=== PATIENT | female | born 1940 | race Caucasian/White ===

== ENCOUNTER 2016-04-10 13:57 | Outpatient (RCR) | payer MEDICARE, OTHER ==
[2016-03-13 14:03] LABS: BASOPHILS % (AUTO) 0 % (0-10); EOSINOPHILS # (AUTO) 0.1 10^3/uL (0.0-0.3); EOSINOPHILS % (AUTO) 1 % (0-10); LYMPHOCYTES % (AUTO) 29 % (12-44); MEAN CORPUSCULAR HEMOGLOBIN 24 PG (25-34); MEAN CORPUSCULAR HGB CONC 33 G/DL (32-36); MEAN CORPUSCULAR VOLUME 73 FL (80-99); MEAN PLATELET VOLUME 8.9 FL (7.4-10.4); MONOCYTES # (AUTO) 0.8 X 10^3 (0.0-1.0); MONOCYTES % (AUTO) 12 % (0-12); NEUTROPHILS % (AUTO) 58 % (42-75); PLATELET COUNT 343 10^3/uL (130-400); RED CELL DISTRIBUTION WIDTH 13.7 % (10.0-14.5)
[2016-03-13 14:55] LABS: ALANINE AMINOTRANSFERASE 13 U/L (0-55); ANION GAP 10 MMOL/L (5-14); ASPARTATE AMINO TRANSFERASE 14 U/L (5-34); BILIRUBIN,TOTAL 0.3 MG/DL (0.1-1.0); BLOOD UREA NITROGEN 14 MG/DL (7-18); BUN/CREATININE RATIO 19; CALCIUM 9.4 MG/DL (8.5-10.1); CARBON DIOXIDE 27 MMOL/L (21-32); CHLORIDE 100 MMOL/L (98-107); CREATININE SERUM 0.72 MG/DL (0.60-1.30); GFR ESTIMATED > 60; GLUCOSE 127 MG/DL (70-105); POTASSIUM 3.7 MMOL/L (3.6-5.0); SODIUM 137 MMOL/L (135-145); TOTAL PROTEIN 6.7 G/DL (6.4-8.2)
[~2016-04-10 13:57] MED LIST: AMLO5TAB2 PO; ASP325TEC PO; ASP81CT; ASP81TEC PO; ASPI-586 PO; BISO1TAB39 PO; CALC-80 PO; CHOL2000 PO; CLOP75TA PO; CLOP75TA69 PO; E400C; E400C PO; FISH1200 PO; FOLI0.8T PO; HYDR-3062 PO; HYDR1TAB PO; HYDR25TA4 PO; LISI20TA2 PO; LISI5TAB14; LVT.025T; LVT.05T PO; MAGN400T29 PO; MAGN400T6 PO; MECL-106 PO; MGX400T; NAPR220T66; NAPR220T76 PO; NF-SITA50T; NFNEB10T PO; OMEG-9 PO; OMEP-10; OMEP-10 PO; PNT40TEC PO; RESV100C PO; SERT50TA PO; SIMV40TA4 PO; TEMA15CA6 PO; UBID100C17 PO; VALS1TAB15 PO; VICODIN; VIT D PO; VIT1CAPS44 PO; VIT1TABL8 PO; calcium PO; ziac
[2016-04-10 14:08] LABS: BASOPHILS % (AUTO) 0 % (0-10); EOSINOPHILS # (AUTO) 0.1 10^3/uL (0.0-0.3); EOSINOPHILS % (AUTO) 1 % (0-10); LYMPHOCYTES # (AUTO) 2.4 X 10^3 (1.0-4.0); LYMPHOCYTES % (AUTO) 37 % (12-44); MEAN CORPUSCULAR HEMOGLOBIN 24 PG (25-34); MEAN CORPUSCULAR HGB CONC 34 G/DL (32-36); MEAN CORPUSCULAR VOLUME 71 FL (80-99); MEAN PLATELET VOLUME 9.3 FL (7.4-10.4); MONOCYTES # (AUTO) 0.7 X 10^3 (0.0-1.0); MONOCYTES % (AUTO) 11 % (0-12); NEUTROPHILS # (AUTO) 3.3 X 10^3 (1.8-7.8); NEUTROPHILS % (AUTO) 51 % (42-75); PLATELET COUNT 320 10^3/uL (130-400); RED BLOOD COUNT 4.88 10^6/uL (4.35-5.85); RED CELL DISTRIBUTION WIDTH 13.6 % (10.0-14.5); WHITE BLOOD COUNT 6.5 10^3/uL (4.3-11.0)
[2016-04-10 14:31] LABS: ALANINE AMINOTRANSFERASE 16 U/L (0-55); ALBUMIN 4.2 G/DL (3.2-4.5); ANION GAP 14 MMOL/L (5-14); ASPARTATE AMINO TRANSFERASE 17 U/L (5-34); BILIRUBIN,TOTAL 0.4 MG/DL (0.1-1.0); BLOOD UREA NITROGEN 13 MG/DL (7-18); BUN/CREATININE RATIO 17; CALCIUM 9.5 MG/DL (8.5-10.1); CARBON DIOXIDE 21 MMOL/L (21-32); CHLORIDE 96 MMOL/L (98-107); CREATININE SERUM 0.77 MG/DL (0.60-1.30); GFR ESTIMATED > 60; GLUCOSE 150 MG/DL (70-105); POTASSIUM 3.9 MMOL/L (3.6-5.0); SODIUM 131 MMOL/L (135-145)
[2016-05-15 10:16] LABS: HGB CP# L-17-0002723
== END 2016-06-11 | disposition home or self-care (01) ==
LOC: ONC 13:57
PROVIDERS: ATTEND Internal Medicine Hematology & Oncology
DX: C34.11 Malignant neoplasm of upper lobe, right bronchus or lung (principal); D64.9 Anemia, unspecified; I10 Essential (primary) hypertension; E78.5 Hyperlipidemia, unspecified; E03.9 Hypothyroidism, unspecified; K21.9 Gastro-esophageal reflux disease without esophagitis; F17.210 Nicotine dependence, cigarettes, uncomplicated; Z79.899 Other long term (current) drug therapy
CPT/HCPCS: 36415; 80053; 82728; 83020; 83540; 85025; 99213; 99214

== ENCOUNTER → 2016-06-19 | Outpatient (CLI) | payer MEDICARE, OTHER ==
[~2016-06-19] MED LIST changes: +BARIUM SUSPENSION 2.1% (VANILLA SILQ) 450 ML PO ONE; +CATHETER FLUSH 10 ML SYR IV PRN; +IOHEXOL 350 MG/ML 100 ML (OMNIPAQUE 350) VIAL IV ONE; +NS 100 ML (IVPB) BAG IV ONE
--- NOTE | 2016-06-19 17:10 | Diagnostic Imaging Report ---
PROCEDURE: CT chest with contrast, CT abdomen and pelvis with and without contrast. TECHNIQUE: Pre and post intravenous contrast axial imaging of the abdomen and pelvis and post contrast axial imaging of the chest were performed. INDICATION: Lung cancer. CONTRAST: 100 mL of Omnipaque 350 is administered intravenously. COMPARISON: 11/30/2015; history of a partial right pneumonectomy in January 2016. FINDINGS: CT chest: Mild atelectasis and scarring in the right lung base is seen. Previously seen nodules in the right upper lobe have been resected. The left lung demonstrates no significant consolidation or mass. The heart size is slightly prominent with no pericardial or pleural effusion. Surgical clips about the right hilum are seen. No hilar, mediastinal, or axillary significantly enlarged lymph nodes are noted. The osseous structures demonstrate subacute fracture in the lateral aspect of the right sixth rib with no underlying lytic or sclerotic lesion appears to be present. CT abdomen and pelvis: The liver demonstrates a tiny hypodense lesion measuring 5 mm in the right hepatic dome, too small to accurately characterize and may represent a tiny cyst. Cholecystectomy clips are seen. There is mild intrahepatic biliary dilatation. The CBD is 1.1 cm in caliber. The spleen, the pancreas, and the adrenal glands appear unremarkable. The unenhanced phase demonstrates calcifications near the renal farrukh bilaterally, favored to be vascular calcifications. No definite urinary tract stone. The abdominal aorta is normal in caliber. No para-aortic significantly enlarged lymph nodes seen. There are beam hardening artifacts from fusion prostheses in the lower lumbar spine and the bilateral hip replacements. No soft tissue mass or lymphadenopathy is seen in the abdomen or pelvis. No lytic or blastic mass is seen in the osseous structures. IMPRESSION: CT chest: Postsurgical changes in the right hemithorax. No evidence of tumor recurrence or metastasis. CT abdomen and pelvis: No evidence of metastasis. Dictated by: Dictated on workstation # [id number]
== END ==
LOC: RAD 12:59
PROVIDERS: ATTEND Internal Medicine Hematology & Oncology
DX: C34.11 Malignant neoplasm of upper lobe, right bronchus or lung (principal)
CPT/HCPCS: 71260; 74178

== ENCOUNTER 2016-07-05 14:29 | Outpatient (RCR) | payer MEDICARE, OTHER ==
[2016-06-12 14:15] LABS: BASOPHILS % (AUTO) 0 % (0-10); EOSINOPHILS # (AUTO) 0.2 10^3/uL (0.0-0.3); EOSINOPHILS % (AUTO) 2 % (0-10); LYMPHOCYTES # (AUTO) 2.1 X 10^3 (1.0-4.0); LYMPHOCYTES % (AUTO) 30 % (12-44); MEAN CORPUSCULAR HEMOGLOBIN 24 PG (25-34); MEAN CORPUSCULAR HGB CONC 33 G/DL (32-36); MEAN CORPUSCULAR VOLUME 71 FL (80-99); MEAN PLATELET VOLUME 8.9 FL (7.4-10.4); MONOCYTES # (AUTO) 0.8 X 10^3 (0.0-1.0); MONOCYTES % (AUTO) 11 % (0-12); NEUTROPHILS # (AUTO) 3.8 X 10^3 (1.8-7.8); NEUTROPHILS % (AUTO) 56 % (42-75); PLATELET COUNT 309 10^3/uL (130-400); RED BLOOD COUNT 4.74 10^6/uL (4.35-5.85); RED CELL DISTRIBUTION WIDTH 14.8 % (10.0-14.5); WHITE BLOOD COUNT 6.9 10^3/uL (4.3-11.0)
[2016-06-12 17:09] LABS: ANION GAP 10 MMOL/L (5-14); BLOOD UREA NITROGEN 8 MG/DL (7-18); BUN/CREATININE RATIO 10; CARBON DIOXIDE 27 MMOL/L (21-32); CHLORIDE 96 MMOL/L (98-107); CREATININE SERUM 0.78 MG/DL (0.60-1.30); POTASSIUM 3.9 MMOL/L (3.6-5.0); SODIUM 133 MMOL/L (135-145)
[2016-06-12 17:10] LABS: ALANINE AMINOTRANSFERASE 17 U/L (0-55); ASPARTATE AMINO TRANSFERASE 18 U/L (5-34); BILIRUBIN,TOTAL 0.4 MG/DL (0.1-1.0); CALCIUM 9.8 MG/DL (8.5-10.1); GFR ESTIMATED > 60; GLUCOSE 153 MG/DL (70-105); TOTAL PROTEIN 7.2 G/DL (6.4-8.2)
[~2016-07-05 14:29] MED LIST changes: -BARIUM SUSPENSION 2.1% (VANILLA SILQ) 450 ML PO ONE; -CATHETER FLUSH 10 ML SYR IV PRN; -IOHEXOL 350 MG/ML 100 ML (OMNIPAQUE 350) VIAL IV ONE; -NS 100 ML (IVPB) BAG IV ONE
== END 2016-09-10 | disposition home or self-care (01) ==
LOC: ONC 14:29
PROVIDERS: ATTEND Internal Medicine Hematology & Oncology
DX: C34.11 Malignant neoplasm of upper lobe, right bronchus or lung (principal); D64.9 Anemia, unspecified; I10 Essential (primary) hypertension; E78.5 Hyperlipidemia, unspecified; E03.9 Hypothyroidism, unspecified; K21.9 Gastro-esophageal reflux disease without esophagitis; F17.210 Nicotine dependence, cigarettes, uncomplicated; Z79.899 Other long term (current) drug therapy
CPT/HCPCS: 36415; 80053; 82728; 83540; 85025; 99213

== ENCOUNTER 2016-11-08 15:58 | Outpatient (RCR) | payer MEDICARE, OTHER ==
[2016-11-08 14:25] LABS: BASOPHILS % (AUTO) 0 % (0-10); EOSINOPHILS # (AUTO) 0.1 10^3/uL (0.0-0.3); EOSINOPHILS % (AUTO) 1 % (0-10); LYMPHOCYTES # (AUTO) 2.1 X 10^3 (1.0-4.0); LYMPHOCYTES % (AUTO) 33 % (12-44); MEAN CORPUSCULAR HEMOGLOBIN 24 PG (25-34); MEAN CORPUSCULAR HGB CONC 33 G/DL (32-36); MEAN CORPUSCULAR VOLUME 72 FL (80-99); MEAN PLATELET VOLUME 9.7 FL (7.4-10.4); MONOCYTES # (AUTO) 0.7 X 10^3 (0.0-1.0); MONOCYTES % (AUTO) 10 % (0-12); NEUTROPHILS # (AUTO) 3.7 X 10^3 (1.8-7.8); NEUTROPHILS % (AUTO) 56 % (42-75); PLATELET COUNT 314 10^3/uL (130-400); RED BLOOD COUNT 4.91 10^6/uL (4.35-5.85); WHITE BLOOD COUNT 6.5 10^3/uL (4.3-11.0)
[2016-11-08 14:56] LABS: ALANINE AMINOTRANSFERASE 21 U/L (0-55); ANION GAP 13 MMOL/L (5-14); ASPARTATE AMINO TRANSFERASE 21 U/L (5-34); BILIRUBIN,TOTAL 0.4 MG/DL (0.1-1.0); BLOOD UREA NITROGEN 10 MG/DL (7-18); BUN/CREATININE RATIO 12; CALCIUM 9.7 MG/DL (8.5-10.1); CARBON DIOXIDE 24 MMOL/L (21-32); CHLORIDE 95 MMOL/L (98-107); CREATININE SERUM 0.84 MG/DL (0.60-1.30); GFR ESTIMATED > 60; GLUCOSE 141 MG/DL (70-105); SODIUM 132 MMOL/L (135-145); TOTAL PROTEIN 7.3 GM/DL (6.4-8.2)
== END 2016-11-10 | disposition home or self-care (01) ==
LOC: ONC 15:58
PROVIDERS: ATTEND Internal Medicine Hematology & Oncology
DX: F17.210 Nicotine dependence, cigarettes, uncomplicated; K21.9 Gastro-esophageal reflux disease without esophagitis; E03.9 Hypothyroidism, unspecified; Z79.899 Other long term (current) drug therapy; I10 Essential (primary) hypertension; D64.9 Anemia, unspecified; C34.11 Malignant neoplasm of upper lobe, right bronchus or lung; E78.5 Hyperlipidemia, unspecified
CPT/HCPCS: 36415; 80053; 85025; 99213

== ENCOUNTER 2017-01-01 19:49 | Inpatient (IN) | payer MEDICARE, OTHER ==
[~2017-01-01] VITALS: Ht 165.1 cm; Wt 75.4 kg
[2017-01-01] MEDS ORDERED: fentaNYL INJECTION 100 MCG/2 ML AMP IVP ONE ×3 (20:00→21:15)
[2017-01-01] MEDS ORDERED: METO10TA3 PO (20:01)
--- NOTE | 2017-01-01 20:09 | ED Fall/Injury ---
General Chief Complaint: Trauma-Non Activation Stated Complaint: FALL Nursing Triage Note: FALL FROM STANDING POSITION, LEFT UPPER ARM, LEFT HIP PAIN. DENIES LOC/OTHER INJURY Source: patient, EMS Exam Limitations: no limitations History of Present Illness Time seen by provider: 20:07 Initial Comments To ER per EMS from home with reports of left hip and left upper arm pain. Patient states that she tripped over her cat at home landing on the left side. She has a prosthetic left hip with some pain in it currently, pain to the left proximal humerus as well. No neck pain. He did not hit her head. No loss of consciousness. Occurred: just prior to arrival Severity: moderate Injuries/Pain Location: lower extremity Context: unknown Associated Symptoms (Fall): Denies Symptoms Allergies and Home Medications Allergies Coded Allergies: valsartan (Verified Allergy, Intermediate, HIVES, 02/01/15) Sulfa (Sulfonamide Antibiotics) (Verified Allergy, Unknown, 04/15/08) prochlorperazine (Verified Allergy, Unknown, 04/15/08) Home Medications Amlodipine Besylate 5 Mg Tablet, 5 MG PO DAILY, (Reported) Clopidogrel Bisulfate 75 Mg Tablet, 75 MG PO, (Reported) Hydrochlorothiazide 25 Mg Tablet, 25 MG PO DAILY, (Reported) Hydrocodone/Acetaminophen 1 Each Tablet, 1-2 TAB PO Q4H PRN for PAIN, #40 Prescribed by: DOC BEAUCHAMP on 02/07/15 1425 Levothyroxine Sodium 50 Mcg Tablet, 1 EACH PO DAILY, (Reported) Lisinopril 20 Mg Tablet, 40 MG PO daily, (Reported) TAKE IN EVENING Metoclopramide HCl 10 Mg Tablet, (Reported) Pantoprazole Sod 40 Mg Tab, 40 MG PO, (Reported) Temazepam 15 Mg Capsule, 15 MG PO HS, (Reported) Constitutional: see HPI Eyes: No Symptoms Reported Ears, Nose, Mouth, Throat: no symptoms reported Respiratory: no symptoms reported Cardiovascular: no symptoms reported Genitourinary: no symptoms reported Musculoskeletal: no symptoms reported Skin: no symptoms reported Psychiatric/Neurological: No Symptoms Reported Past Flvwcqd-Nxbivp-Sznzdr Hx Patient Social History Alcohol Use: Denies Use Recreational Drug Use: No Smoking Status: Former Smoker Type Used: Cigarettes 2nd Hand Smoke Exposure: No Recent Foreign Travel: No Contact w/Someone Who Travel: No Recent Infectious Disease Expo: No Recent Hopitalizations: No Immunizations Up To Date Tetanus Booster (TDap): Unknown Date of Pneumonia Vaccine: June 30, 2010 Seasonal Allergies Seasonal Allergies: No Surgeries History of Surgeries: Yes (THUMB AMPUTATED, TOTAL HIPS BILATERAL, BACK SURGRY X4, skin cancer ) Surgeries: Joint Replacement, Lobectomy, Orthopedic Respiratory History of Respiratory Disorde: No Cardiovascular History of Cardiac Disorders: Yes (ATRIAL SEPTAL DEFECT-SMALL) Cardiac Disorders: Hypertension Neurological History of Neurological Disord: No Neurological Disorders: Stroke Reproductive System Hx Reproductive Disorders: No Sexually Transmitted Disease: No HIV/AIDS: No Genitourinary History of Genitourinary Disor: No Gastrointestinal History of Gastrointestinal Di: Yes Gastrointestinal Disorders: Gastroesophageal Reflux Musculoskeletal History of Musculoskeletal Dis: Yes Musculoskeletal Disorders: Degenerate Disk Disease, Arthritis, Chronic Back Pain Endocrine History of Endocrine Disorders: Yes Endocrine Disorders: Hypothyroidsim HEENT History of HEENT Disorders: No Loss of Vision: Denies Hearing Impairment: Denies 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, LIP, SHOULDER) Cancer: Lung Did You Recieve Any Treatments: Yes Type of Tx Receive: Surgical Intervention Psychosocial History of Psychiatric Problem: No Integumentary History of Skin or Integumenta: No Blood Transfusions History of Blood Disorders: Yes (FORM OF ANEMIA) Adverse Reaction to a Blood Tr: No (HAS HAD TRANSFUSION WITHOUT REACTION) Physical Exam Vital Signs Vital Sign - Last 12Hours 01/01/17 20:01 Temp 98.6 Pulse 73 Resp 18 B/P (MAP) 136/81 Pulse Ox 100 O2 Delivery Room Air Capillary Refill : Less Than 3 Seconds General Appearance: WD/WN, no apparent distress HEENT: PERRL/EOMI, normal ENT inspection Neck: non-tender, full range of motion Respiratory: normal breath sounds, no respiratory distress, no accessory muscle use Gastrointestinal: non tender, soft Extremities: other (dorsalis pedis pulse is weak on the left though it is also weak on the right and there is no difference between the 2. Capillary refill less than 3 seconds. Capillary refill of the hand on the left and radial pulse is +2 with capillary refill less than 3 seconds. She has had a former partial indication of the thumb at the IP joint.) Neurologic/Psychiatric: alert, normal mood/affect, oriented x 3 Skin: normal color, warm/dry Yung Coma Score Best Eye Response: (4) Open Spontaneously Best Verbal Response: (5) Oriented Best Motor Response: (6) Obeys Commands Hodges Total: 15 Progress/Results/Core Measures Results/Orders Lab Results Laboratory Tests Test 01/01/17 20:10 Range/Units White Blood Count 10.2 4.3-11.0 10^3/uL Red Blood Count 4.71 4.35-5.85 10^6/uL Hemoglobin 11.4 L 11.5-16.0 G/DL Hematocrit 33 L 35-52 % Mean Corpuscular Volume 71 L 80-99 FL Mean Corpuscular Hemoglobin 24 L 25-34 PG Mean Corpuscular Hemoglobin Concent 34 32-36 G/DL Red Cell Distribution Width 13.9 10.0-14.5 % Platelet Count 292 130-400 10^3/uL Mean Platelet Volume 10.4 7.4-10.4 FL Neutrophils (%) (Auto) 73 42-75 % Lymphocytes (%) (Auto) 16 12-44 % Monocytes (%) (Auto) 10 0-12 % Eosinophils (%) (Auto) 1 0-10 % Basophils (%) (Auto) 0 0-10 % Neutrophils # (Auto) 7.5 1.8-7.8 X 10^3 Lymphocytes # (Auto) 1.7 1.0-4.0 X 10^3 Monocytes # (Auto) 1.0 0.0-1.0 X 10^3 Eosinophils # (Auto) 0.1 0.0-0.3 10^3/uL Basophils # (Auto) 0.0 0.0-0.1 10^3/uL Sodium Level 135 135-145 MMOL/L Potassium Level 3.7 3.6-5.0 MMOL/L Chloride Level 100 98-107 MMOL/L Carbon Dioxide Level 21 21-32 MMOL/L Anion Gap 14 5-14 MMOL/L Blood Urea Nitrogen 18 7-18 MG/DL Creatinine 0.83 0.60-1.30 MG/DL Estimat Glomerular Filtration Rate > 60 BUN/Creatinine Ratio 22 Glucose Level 139 H 70-105 MG/DL Calcium Level 10.0 8.5-10.1 MG/DL Total Bilirubin 0.4 0.1-1.0 MG/DL Aspartate Amino Transf (AST/SGOT) 16 5-34 U/L Alanine Aminotransferase (ALT/SGPT) 16 0-55 U/L Alkaline Phosphatase 77 40-136 U/L Total Protein 7.2 6.4-8.2 GM/DL Albumin 3.9 3.2-4.5 GM/DL My Orders Orders - JOSE MIGUEL FOLEY APRN Cbc With Automated Diff (01/01/17 19:59) Comprehensive Metabolic Panel (01/01/17 19:59) Ua Culture If Indicated (01/01/17 19:59) Saline Lock/Iv-Start (01/01/17 19:59) Chest 1 View, Ap/Pa Only (01/01/17 19:59) Humerus, Left, 2 Views (01/01/17 19:59) Pelvis With Left Hip 2-3 Views (01/01/17 19:59) Fentanyl Injection (Sublimaze Injection (01/01/17 20:00) Fentanyl Injection (Sublimaze Injection (01/01/17 20:45) Fentanyl Injection (Sublimaze Injection (01/01/17 21:15) Hydromorphone Injection (Dilaudid Inject (01/01/17 21:45) Medications Given in ED Current Medications Medications Dose Ordered Sig/Beena Route Start Time Stop Time Status Last Admin Dose Admin Fentanyl Citrate 50 mcg ONCE ONCE IVP 01/01/17 20:00 01/01/17 20:01 DC 01/01/17 20:09 50 MCG Fentanyl Citrate 50 mcg ONCE ONCE IVP 01/01/17 20:45 01/01/17 20:46 DC 01/01/17 20:45 50 MCG Fentanyl Citrate 75 mcg ONCE ONCE IVP 01/01/17 21:15 01/01/17 21:16 DC 01/01/17 21:13 75 MCG Vital Signs/I&O Vital Sign - Last 12Hours 01/01/17 20:01 Temp 98.6 Pulse 73 Resp 18 B/P (MAP) 136/81 Pulse Ox 100 O2 Delivery Room Air Blood Pressure Mean: 99 Diagnostic Imaging Diagonstic Imaging: Xray Comments NAME: GRANT RODRIGUEZ MED REC#: [id number] PT STATUS: REG ER : 1940 PHYSICIAN: JOSE MIGUEL FOLEY APRN ADMIT DATE: 01/01/17/ER Draft Date of Exam:01/01/17 HUMERUS, LEFT, 2 VIEWS EXAM: HUMERUS, LEFT, 2 VIEWS INDICATION: Left arm pain. COMPARISON: Chest radiograph 11/24/2015. FINDINGS: Lucency through the base of the left greater tuberosity at the humerus suspicious for fracture. The humeral head is normally aligned within the glenoid. No other fractures. No radiopaque foreign bodies. IMPRESSION: Lucency through the base of the left humeral greater tuberosity consistent with fracture. Dictated on workstation # [id number] Dict: 01/01/172051 Trans: 01/01/172055 [id number] Interpreted by: KEKE JOHNSON MD Electronically signed by: Departure Communication (Admissions) Time/Spoke to Admitting Phy: 22:01 Communication She does not feel she can safely go home. She does live by herself. Agree with this given the left humerus fracture and left hip fracture. I discussed with Dr. Bae. He recommends no operative treatment at this time, full weight-bearing as tolerated. Admission for pain control hospitalist as necessary. I discussed with Dr. Najera. He agrees to admit, consult physical therapy and consult Dr. Bae. Will use a sling for the humerus fracture. Impression Impression: Primary Impression: Fracture, humerus, head Additional Impression: Periprosthetic hip fracture Disposition: ADMITTED INPATIENT Condition: Stable Admissions Decision to Admit Reason: Admit from ER (General) Decision to Admit/Date: Jan 01, 2017 Time/Decision to Admit Time: 22:00 Departure-Patient Inst. Referrals: ALEXIS JACKSON DO (PCP/Family) Primary Care Physician Copy Copies To 1: ALEXIS JACKSON PETER J APRN Jan 01, 2017 20:09
[2017-01-01] MEDS ORDERED: CLOP75TA69 PO (20:11)
[2017-01-01 20:17] LABS: BASOPHILS % (AUTO) 0 % (0-10); EOSINOPHILS # (AUTO) 0.1 10^3/uL (0.0-0.3); EOSINOPHILS % (AUTO) 1 % (0-10); LYMPHOCYTES # (AUTO) 1.7 X 10^3 (1.0-4.0); LYMPHOCYTES % (AUTO) 16 % (12-44); MEAN CORPUSCULAR HEMOGLOBIN 24 PG (25-34); MEAN CORPUSCULAR HGB CONC 34 G/DL (32-36); MEAN CORPUSCULAR VOLUME 71 FL (80-99); MEAN PLATELET VOLUME 10.4 FL (7.4-10.4); MONOCYTES % (AUTO) 10 % (0-12); NEUTROPHILS # (AUTO) 7.5 X 10^3 (1.8-7.8); NEUTROPHILS % (AUTO) 73 % (42-75); PLATELET COUNT 292 10^3/uL (130-400); RED BLOOD COUNT 4.71 10^6/uL (4.35-5.85); RED CELL DISTRIBUTION WIDTH 13.9 % (10.0-14.5); WHITE BLOOD COUNT 10.2 10^3/uL (4.3-11.0)
[2017-01-01 20:37] LABS: ALANINE AMINOTRANSFERASE 16 U/L (0-55); ALBUMIN 3.9 GM/DL (3.2-4.5); ANION GAP 14 MMOL/L (5-14); ASPARTATE AMINO TRANSFERASE 16 U/L (5-34); BILIRUBIN,TOTAL 0.4 MG/DL (0.1-1.0); BLOOD UREA NITROGEN 18 MG/DL (7-18); BUN/CREATININE RATIO 22; CARBON DIOXIDE 21 MMOL/L (21-32); CHLORIDE 100 MMOL/L (98-107); CREATININE SERUM 0.83 MG/DL (0.60-1.30); GFR ESTIMATED > 60; GLUCOSE 139 MG/DL (70-105); POTASSIUM 3.7 MMOL/L (3.6-5.0); SODIUM 135 MMOL/L (135-145); TOTAL PROTEIN 7.2 GM/DL (6.4-8.2)
--- NOTE | 2017-01-01 20:55 | Diagnostic Imaging Report ---
EXAM: CHEST 1 VIEW, AP/PA ONLY. INDICATION: Fall. Prior thoracotomy for lung cancer. COMPARISON: Chest radiograph 11/24/2015. FINDINGS: Normal heart size and pulmonary vascularity. Calcified aorta. Surgical clips in the right hilum. No focal pulmonary opacity, pleural effusion, or pneumothorax. No acute osseous findings. IMPRESSION: No acute cardiopulmonary findings. Dictated by: Dictated on workstation # [id number]
--- NOTE | 2017-01-01 20:56 | Diagnostic Imaging Report ---
EXAM: HUMERUS, LEFT, 2 VIEWS INDICATION: Left arm pain. COMPARISON: Chest radiograph 11/24/2015. FINDINGS: Lucency through the base of the left greater tuberosity at the humerus suspicious for fracture. The humeral head is normally aligned within the glenoid. No other fractures. No radiopaque foreign bodies. IMPRESSION: Lucency through the base of the left humeral greater tuberosity consistent with fracture. Dictated by: Dictated on workstation # [id number]
--- NOTE | 2017-01-01 21:08 | Diagnostic Imaging Report ---
EXAM: PELVIS WITH LEFT HIP 2-3 VIEWS INDICATION: Fall. Left hip pain. COMPARISON: None. FINDINGS: Bilateral THAs. Components appear intact. There is a periprosthetic fracture distal to the left lesser trochanter with approximately 8mm of distraction. No other fractures. Postoperative changes in lower lumbar spine. Vascular calcifications. IMPRESSION: Left proximal femur periprosthetic fracture just distal to the left lesser trochanter. Report given to Derrell Hodges APRN at 9:08 p.m. 01/01/2017/kari Dictated by: Dictated on workstation # [id number]
[2017-01-01] MEDS ORDERED: HYDROmorphone (DILAUDID) 2 MG/ML VIAL IVP PRN (21:45)
[2017-01-01 22:05] VITALS: BP 133/64
[2017-01-01] MEDS: ONDANSETRON 8 MG (ZOFRAN) ORAL DISSOLVE TAB PO PRN (23:23)
[2017-01-02] VITALS (7 sets, daily range): BP systolic 109–127; BP diastolic 62–67
[2017-01-02] MEDS: HYDROcodone/APAP 10 MG/325 MG (LORTAB) TAB PO PRN ×3 (00:08→21:28)
[2017-01-02] MEDS: HYDROmorphone (DILAUDID) 2 MG/ML VIAL IV PRN ×2 (01:33→06:26)
[2017-01-02] MEDS: ONDANSETRON 4 MG/2 ML (SDV) Z0FRAN IV PRN ×3 (03:44→15:11)
[2017-01-02] MEDS: ONDANSETRON 8 MG (ZOFRAN) ORAL DISSOLVE TAB PO PRN (06:26)
[2017-01-02] MEDS ORDERED: INFLUENZA TRIvalent 2017-2018 0.5 ML/45 MCG SYR IM ONE (07:15)
[2017-01-02] MEDS ORDERED: CATHETER FLUSH 10 ML SYR IV PRN (07:15)
[2017-01-02] MEDS ORDERED: PANT40TA3 PO (08:19)
[2017-01-02] MEDS ORDERED: LEVO50TA6 PO (08:19)
[2017-01-02] MEDS ORDERED: LISI40TA PO (08:19)
[2017-01-02] MEDS: DOCUSATE SODIUM 100 MG (COLACE) CAP PO SCH ×2 (08:25→21:28)
--- NOTE | 2017-01-02 08:31 | History & Physical-Hospitalist ---
HPI History of Present Illness: HPI/Chief Complaint Pt is a 76yoCF with a PMH of lung cancer s/p lobectomy, HTN, CVA, thalassemia who presented to the ER following a fall at home. She reports she tripped over her cats and suffered no loss of consciousness.She developed left arm and hip pain causing her to come to the ER for evaluation. She was found to have a left humerus fracture and periprosthetic left hip fracture. Per note from ED Dr. Bae (Ortho) was contacted and recommended nonoperative treatment. She was admitted for pain management. She otherwise she has felt well up until yesterday when she feel. She denied any lightheadedness that led to the fall. She still reports severe pain with any movement. She is also having some nausea this morning. Source: patient Exam Limitations: no limitations Date Seen 01/02/17 Time Seen by Provider: 08:15 Attending Physician Joseph Najera MD PCP Jeremy Graf DO Referring Physician Date of Admission Jan 01, 2017 at 21:43 Home Medications & Allergies Home Medications Reviewed patient Home Medication Reconciliation Form Allergies Allergies Coded Allergies valsartan (Verified Allergy, Intermediate, HIVES, 02/01/15) Sulfa (Sulfonamide Antibiotics) (Verified Allergy, Unknown, 04/15/08) prochlorperazine (Verified Allergy, Unknown, 04/15/08) Past Blembqm-Jbphni-Pfdqed Hx Patient Social History Marrital Status: single Alcohol Use: Denies Use Recreational Drug Use: No Smoking Status: Former Smoker (quit 2015) Type Used: Cigarettes 2nd Hand Smoke Exposure: No Physical Abuse Screen: No Sexual Abuse: No Recent Foreign Travel: No Contact w/other who traveled: No Recent Hopitalizations: No Recent Infectious Disease Expo: No Immunizations Up To Date Tetanus Booster (TDap): Unknown Date of Pneumonia Vaccine: July 01, 2015 Seasonal Allergies Seasonal Allergies: No Surgeries Yes (THUMB AMPUTATED, TOTAL HIPS BILATERAL, BACK SURGRY X4, skin cancer ) Joint Replacement, Lobectomy (lung), Orthopedic (bilateral hip replacement, partial thumb amputation) Respiratory No (LUNG CA -lobectomy upper/middle) Currently Using CPAP: No Currently Using BIPAP: No Cardiovascular Yes (ATRIAL SEPTAL DEFECT-SMALL, MVP) Hypertension Neurological No Stroke Reproductive System Hx Reproductive Disorders: No Sexually Transmitted Disease: No HIV/AIDS: No Genitourinary No Gastrointestinal Yes Gastroesophageal Reflux Musculoskeletal Yes (Zack TH; back surg x 3) Degenerate Disk Disease, Arthritis, Chronic Back Pain Endocrine History of Endocrine Disorders: Yes (controlled DM with diet) Endocrine Disorders: Hypothyroidsim HEENT History of HEENT Disorders: No Loss of Vision: Denies Hearing Impairment: Denies Cancer Yes (SQUAMOUS CELL THUMB, LIP, SHOULDER) Lung Did You Recieve Any Treatments: Yes Type of Treatment: Surgical Intervention Psychosocial History of Psychiatric Problem: No Integumentary History of Skin or Integumenta: No Blood Transfusions History of Blood Disorders: Yes (FORM OF ANEMIA) Adverse Reaction to a Blood Tr: No (HAS HAD TRANSFUSION WITHOUT REACTION) Family Medical History Significant Family History: Cancer (mom- colon, dad lung) Review of Systems Constitutional: No chills, No fever EENTM: No blurred vision, No double vision, No nose congestion, No throat pain Respiratory: No cough, No dyspnea on exertion, No short of breath Cardiovascular: No chest pain, No edema, No palpitations Gastrointestinal: No abdominal pain, No constipation, No diarrhea, No nausea, No vomiting Genitourinary: No dysuria, No frequency Musculoskeletal: see HPI Skin: No lesions, No rash Psychiatric/Neurological: Denies Headache, Denies Numbness, Denies Tingling Physical Exam Physical Exam Vital Signs Vital Sign - Last 12Hours 01/01/17 20:01 Temp 98.6 Pulse 73 Resp 18 B/P (MAP) 136/81 Pulse Ox 100 O2 Delivery Room Air Capillary Refill : Less Than 3 SecondsLess Than 3 Seconds General Appearance: No Apparent Distress, WD/WN HEENT: Moist Mucous Membranes, No Scleral Icterus (L), No Scleral Icterus (R) Neck: Supple, No Thyromegaly Respiratory: Lungs Clear, No Respiratory Distress Cardiovascular: Regular Rate, Rhythm, No Murmur, Normal Peripheral Pulses Gastrointestinal: Normal Bowel Sounds, Non Tender, Soft Extremity: Normal Capillary Refill, No Calf Tenderness, No Pedal Edema, Other Neurologic/Psychiatric: Alert, Oriented x3, Normal Mood/Affect Skin: Normal Color, Warm/Dry Results Results/Procedures Lab Laboratory Tests 01/01/17 20:10 Assessment/Plan Admission Diagnosis Left humerus fracture, left periprosthetic hip fracture Diagnosis/Problems Diagnosis/Problems (1) Fracture, humerus, head Status: Acute Assessment & Plan: Ortho consulted from ER Per ER note recommended nonoperative management PT/OT Arm in Sling IRU consulte Qualifiers: Qualified Codes: S42.292A - Other displaced fracture of upper end of left humerus, initial encounter for closed fracture (2) Periprosthetic hip fracture Status: Acute Assessment & Plan: Ortho consulted appreciate recs Continue Dilaudid for breakthrough pain Encouraged oral medications as primary source of pain relief PT/OT Qualifiers: Qualified Codes: M97.8XXA - Periprosthetic fracture around other internal prosthetic joint, initial encounter; Z96.649 - Presence of unspecified artificial hip joint (3) H/O: CVA (cerebrovascular accident) Status: Chronic Assessment & Plan: Continue Plavix Not on statin for unknown reason (4) Hypothyroidism Assessment & Plan: Cont Synthroid Qualifiers: Qualified Codes: E03.9 - Hypothyroidism, unspecified (5) Essential (primary) hypertension Status: Chronic Assessment & Plan: Continue home meds (6) History of lung cancer Status: Chronic Assessment & Plan: s/p lobectomy Follows with Dr Rueda (7) Prophylactic measure Assessment & Plan: Lovenox Saline Lock Reg Diet Clinical Quality Measures DVT/VTE Risk/Contraindication: Risk Factor Score Per Nursin RFS Level Per Nursing on Admit: 4+=Very High FARHEEN PATINO MD Jan 02, 2017 8:31 am
[2017-01-02] MEDS ORDERED: AMLO10TA2 PO (08:38)
[2017-01-02] MEDS ORDERED: HYDR-3820 PO (08:38)
[2017-01-02] MEDS ORDERED: TEMA15CA PO (08:38)
[2017-01-02] MEDS ORDERED: VIT1CAPS44 PO (08:41)
[2017-01-02] MEDS ORDERED: VITA1CAP PO (08:41)
[2017-01-02] MEDS ORDERED: RESV100C PO (08:41)
[2017-01-02] MEDS ORDERED: OMG1KC PO (08:41)
[2017-01-02] MEDS ORDERED: PROMETHAZINE INJ 25 MG/ML (PHENERGAN) AMP IVP PRN (09:30)
[2017-01-02] MEDS: hydrOXYzine (VISTARIL) 25 MG CAP PO SCH ×3 (10:07→21:28)
[2017-01-02] MEDS: METOCLOPRAMIDE 10 MG (REGLAN) TAB PO SCH ×2 (10:07→17:39)
--- NOTE | 2017-01-02 13:01 | Occ Therapy Progress Note ---
Therapy Progress Note OT order received. Chart reviewed. Attempted evaluation. Pt. ill. In bed with manjarrez in front of her. Pt. states that she has been vomiting. Nursing aware. Pt. declines getting out of bed at this time. OT will check back this afternoon. 1, visit [id number] ill no charge POLI RICHTER OT Jan 02, 2017 13:01
--- NOTE | 2017-01-02 14:43 | Occ Therapy Progress Note ---
Therapy Progress Note Attempted evaluation again. Pt. states that she still feels nauseated. States that she is too tired, and does not want to work at this time. Reports 5/10 pain in left arm. OT notifies nursing. Pt. requests for OT to let her sleep. OT educates pt. that ARU eval has been sent. Let her know about therapy on rehab. Pt. states that that is what she needs, but is concerned about the amount of therapy. Pt states though that she will not go anywhere else after discharge but home. 1430 1,visit POLI RICHTER OT Jan 02, 2017 14:43
--- NOTE | 2017-01-02 18:20 | Consultation ---
History of Present Illness History of Present Illness Patient Consulted On(pam/time) 01/02/17 18:15 Date Seen by Provider: Jan 02, 2017 Time Seen by Provider: 15:00 Reason for Visit: consultation of fracture History of Present Illness Abeba is a 76 year old female, past patient of Dr Bae service which present to the ED at [facility] with left prominal humerous fracture and left periprosthesis fracture of the left BRADLEY Ortho consult for mobility and if patient is in need of surgery. Reported tripped over her cat at home, had her hands full. Denies any LOC. Developed pain to both left hip and arm. Allergies and Home Medications Allergies Coded Allergies: valsartan (Verified Allergy, Intermediate, HIVES, 02/01/15) Sulfa (Sulfonamide Antibiotics) (Verified Allergy, Unknown, 04/15/08) prochlorperazine (Verified Allergy, Unknown, 04/15/08) Home Medications Amlodipine Besylate 10 Mg Tablet, 10 MG PO DAILY, (Reported) Clopidogrel Bisulfate 75 Mg Tablet, 75 MG PO Q48H, (Reported) Hydrochlorothiazide 25 Mg Tablet, 25 MG PO DAILY, (Reported) Hydrocodone/Acetaminophen 1 Each Tablet, 1 TAB PO Q6H PRN for PAIN-MODERATE, ( Reported) Levothyroxine Sodium 50 Mcg Tablet, 50 MCG PO DAILY, (Reported) Lisinopril 40 Mg Tablet, 40 MG PO HS, (Reported) Metoclopramide HCl 10 Mg Tablet, 10 MG PO TIDWM, (Reported) [place] 3 Polyunsat Fatty Acids 1,000 Mg Cap, 2,000 MG PO BID, (Reported) TAKES 2 (1000MG) CAPSULES Pantoprazole Sodium 40 Mg Tablet.dr, 40 MG PO DAILY, (Reported) Resveratrol 100 Mg Capsule, 100 MG PO DAILY, (Reported) Temazepam 15 Mg Capsule, 15 MG PO HS, (Reported) Vit C/E/Zn/Coppr/Lutein/Zeaxan 1 Each Capsule, 1 CAP PO BID, (Reported) Vitamin B Complex 1 Each Capsule, 1 CAP PO DAILY, (Reported) Past Nrqsgax-Ummsgq-Vmoozz Hx Patient Social History Alcohol Use: Denies Use Recreational Drug Use: No Smoking Status: Former Smoker (quit 2015) Type Used: Cigarettes 2nd Hand Smoke Exposure: No Recent Foreign Travel: No Contact w/Someone Who Travel: No Recent Infectious Disease Expo: No Recent Hopitalizations: No Immunizations Up To Date Tetanus Booster (TDap): Unknown Date of Pneumonia Vaccine: July 01, 2015 Seasonal Allergies Seasonal Allergies: No Surgeries History of Surgeries: Yes (THUMB AMPUTATED, TOTAL HIPS BILATERAL, BACK SURGRY X4, skin cancer ) Surgeries: Joint Replacement, Lobectomy (lung), Orthopedic (bilateral hip replacement, partial thumb amputation) Respiratory History of Respiratory Disorde: No (LUNG CA -lobectomy upper/middle) Currently Using CPAP: No Currently Using BIPAP: No Cardiovascular History of Cardiac Disorders: Yes (ATRIAL SEPTAL DEFECT-SMALL, MVP) Cardiac Disorders: Hypertension Neurological History of Neurological Disord: No Neurological Disorders: Stroke Reproductive System Hx Reproductive Disorders: No Sexually Transmitted Disease: No HIV/AIDS: No Genitourinary History of Genitourinary Disor: No Gastrointestinal History of Gastrointestinal Di: Yes Gastrointestinal Disorders: Gastroesophageal Reflux Musculoskeletal History of Musculoskeletal Dis: Yes (Zack TH; back surg x 3) Musculoskeletal Disorders: Degenerate Disk Disease, Arthritis, Chronic Back Pain Endocrine History of Endocrine Disorders: Yes (controlled DM with diet) Endocrine Disorders: Hypothyroidsim HEENT History of HEENT Disorders: No Loss of Vision: Denies Hearing Impairment: Denies 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, LIP, SHOULDER) Cancer: Lung Did You Recieve Any Treatments: Yes Type of Tx Receive: Surgical Intervention Psychosocial History of Psychiatric Problem: No Integumentary History of Skin or Integumenta: No Blood Transfusions History of Blood Disorders: Yes (FORM OF ANEMIA) Adverse Reaction to a Blood Tr: No (HAS HAD TRANSFUSION WITHOUT REACTION) Family Medical History Significant Family History: Cancer (mom- colon, dad lung) Review of Systems-General Constitutional: no symptoms reported EENTM: no symptoms reported Respiratory: no symptoms reported, see HPI, cough, dyspnea on exertion, hemoptysis, orthopnea, phlegm, short of breath, stridor, wheezing, other Cardiovascular: palpitations Gastrointestinal: nausea, vomiting Genitourinary: no symptoms reported Musculoskeletal: see HPI, joint pain, muscle pain Skin: no symptoms reported Physical Exam-General Problems Physical Exam Vital Signs Vital Sign - Last 12Hours 01/01/17 20:01 Temp 98.6 Pulse 73 Resp 18 B/P (MAP) 136/81 Pulse Ox 100 O2 Delivery Room Air Capillary Refill : Less Than 3 SecondsLess Than 3 Seconds Eyes: Bilateral Eye Normal Inspection, Bilateral Eye PERRL HEENT: normal ENT inspection Neck: non-tender, full range of motion, supple Respiratory: chest non-tender, decreased breath sounds Cardiovascular: normal peripheral pulses, no edema Peripheral Pulses: 2+ Carotid (R), 2+ Carotid (L), 1+ Radial Pulses (R), 1+ Radial Pulses (L) Gastrointestinal: normal bowel sounds Rectal: deferred Back: normal inspection Extremities: other (pain with palpation and rotation of both her left shoulder , and left hip) Neurologic/Psychiatric: edi manager II-XII nml as tested, alert, oriented x 3 Assessment/Plan Assessment/Plan Admission Diagnosis/Plan Left proximal Humerous fracture Left periprosthesis fracture Hx of lung CA Pain, Admit for pain control wt bearing on left hip as tolerated Sling for left arm Zofran, Reglan and possible Phenegran for nausea follow up in office 4 weeks for recheck of fractures. Walker ambulation Swing bed, vs Rehab for conditioning. Clinical Quality Measures DVT/VTE Risk/Contraindication: Risk Factor Score Per Nursin RFS Level Per Nursing on Admit: 4+=Very High REBECCA NAJERA Jan 02, 2017 18:20
[2017-01-02] MEDS: TEMAZEPAM 15 MG (RESTORIL) CAP PO SCH (21:28)
[2017-01-03] VITALS: BP 116/57
[2017-01-03] MEDS: HYDROmorphone (DILAUDID) 2 MG/ML VIAL IV PRN (00:58)
[2017-01-03] MEDS: ONDANSETRON 4 MG/2 ML (SDV) Z0FRAN IV PRN (00:59)
[2017-01-03 04:00] VITALS: BP 130/63
[2017-01-03 05:55] LABS: BASOPHILS % (AUTO) 0 % (0-10); EOSINOPHILS # (AUTO) 0.1 10^3/uL (0.0-0.3); EOSINOPHILS % (AUTO) 1 % (0-10); LYMPHOCYTES # (AUTO) 1.5 X 10^3 (1.0-4.0); LYMPHOCYTES % (AUTO) 17 % (12-44); MEAN CORPUSCULAR HEMOGLOBIN 24 PG (25-34); MEAN CORPUSCULAR HGB CONC 33 G/DL (32-36); MEAN CORPUSCULAR VOLUME 73 FL (80-99); MEAN PLATELET VOLUME 10.2 FL (7.4-10.4); MONOCYTES # (AUTO) 1.3 X 10^3 (0.0-1.0); MONOCYTES % (AUTO) 15 % (0-12); NEUTROPHILS # (AUTO) 5.9 X 10^3 (1.8-7.8); NEUTROPHILS % (AUTO) 66 % (42-75); PLATELET COUNT 246 10^3/uL (130-400); RED BLOOD COUNT 4.36 10^6/uL (4.35-5.85); RED CELL DISTRIBUTION WIDTH 13.9 % (10.0-14.5); WHITE BLOOD COUNT 8.8 10^3/uL (4.3-11.0)
[2017-01-03 06:14] LABS: ANION GAP 9 MMOL/L (5-14); BLOOD UREA NITROGEN 18 MG/DL (7-18); BUN/CREATININE RATIO 21; CALCIUM 9.1 MG/DL (8.5-10.1); CARBON DIOXIDE 28 MMOL/L (21-32); CHLORIDE 100 MMOL/L (98-107); CREATININE SERUM 0.84 MG/DL (0.60-1.30); GFR ESTIMATED > 60; GLUCOSE 144 MG/DL (70-105); POTASSIUM 3.9 MMOL/L (3.6-5.0); SODIUM 137 MMOL/L (135-145)
[2017-01-03] MEDS: METOCLOPRAMIDE 10 MG (REGLAN) TAB PO SCH ×3 (06:15→16:58)
[2017-01-03] MEDS: LEVOTHYROXINE 50 MCG (LEVOTHROID) TAB PO SCH (06:15)
[2017-01-03] MEDS: PANTOPRAZOLE 40 MG (PROTONIX) TAB PO SCH (06:16)
[2017-01-03] MEDS: HYDROcodone/APAP 10 MG/325 MG (LORTAB) TAB PO PRN ×4 (06:16→18:03)
[2017-01-03] MEDS ORDERED: morphine INJ 4 MG/ML 1 ML (VIAL/SYRINGE) IVP PRN (07:00)
--- NOTE | 2017-01-03 07:33 | Progress Note-Hospitalist ---
Subjective HPI/CC On Admission Date Seen by Provider: Jan 03, 2017 Time Seen by Provider: 07:20 Pt is a 76yoCF with a PMH of lung cancer s/p lobectomy, HTN, CVA, thalassemia who presented to the ER following a fall at home. She reports she tripped over her cats and suffered no loss of consciousness.She developed left arm and hip pain causing her to come to the ER for evaluation. She was found to have a left humerus fracture and periprosthetic left hip fracture. Per note from ED Dr. Bae (Ortho) was contacted and recommended nonoperative treatment. She was admitted for pain management. She otherwise she has felt well up until yesterday when she feel. She denied any lightheadedness that led to the fall. She still reports severe pain with any movement. She is also having some nausea this morning. Subjective/Events-last exam Pt reports doing well. Still has nausea and thinks it's due to dilaudid. Will try switching to Morphine, agreeable to plan. Plan to DC to rehab tomorrow. Objective Exam Vital Signs Vital Sign - Last 12Hours 01/01/17 20:01 Temp 98.6 Pulse 73 Resp 18 B/P (MAP) 136/81 Pulse Ox 100 O2 Delivery Room Air Capillary Refill : Less Than 3 SecondsLess Than 3 Seconds General Appearance: No Apparent Distress, WD/WN Respiratory: Lungs Clear, No Respiratory Distress Cardiovascular: Regular Rate, Rhythm, No Murmur Gastrointestinal: Normal Bowel Sounds, Non Tender, Soft Extremity: Non Tender, No Calf Tenderness, Other (left arm in sling) Neurologic/Psychiatric: Alert, Oriented x3 Results/Procedures Lab Laboratory Tests 01/03/17 05:31 Assessment/Plan Assessment and Plan Assess & Plan/Chief Complaint left humerus fracture, left periprosthetic hip fracture Diagnosis/Problems Diagnosis/Problems (1) Fracture, humerus, head Status: Acute Assessment & Plan: Ortho consulted Recommended nonoperative management PT/OT Arm in Sling IRU consulted- plan to accept tomorrow Qualifiers: Qualified Codes: S42.292A - Other displaced fracture of upper end of left humerus, initial encounter for closed fracture (2) Periprosthetic hip fracture Status: Acute Assessment & Plan: Ortho consulted appreciate recs Morphine for breakthrough pain Encouraged oral medications as primary source of pain relief PT/OT Qualifiers: Qualified Codes: M97.8XXA - Periprosthetic fracture around other internal prosthetic joint, initial encounter; Z96.649 - Presence of unspecified artificial hip joint (3) H/O: CVA (cerebrovascular accident) Status: Chronic Assessment & Plan: Continue Plavix Not on statin for unknown reason (4) Hypothyroidism Assessment & Plan: Cont Synthroid Qualifiers: Qualified Codes: E03.9 - Hypothyroidism, unspecified (5) Essential (primary) hypertension Status: Chronic Assessment & Plan: Continue home meds (6) History of lung cancer Status: Chronic Assessment & Plan: s/p lobectomy Follows with Dr Rueda (7) Microcytic anemia Status: Chronic Assessment & Plan: history of thalassemia Hgb stable (8) Prophylactic measure Assessment & Plan: Lovenox Saline Lock Reg Diet FARHEEN PATINO MD Jan 03, 2017 07:33
[2017-01-03 08:00] VITALS: BP 117/58
[2017-01-03] MEDS ORDERED: CLOPIDOGREL 75 MG (PLAVIX) TABLET PO SCH (09:00)
[2017-01-03] MEDS: amLODIPine 10 MG (NORVASC) TAB PO SCH (09:53)
[2017-01-03] MEDS: DOCUSATE SODIUM 100 MG (COLACE) CAP PO SCH ×2 (09:53→19:53)
[2017-01-03] MEDS: hydrOXYzine (VISTARIL) 25 MG CAP PO SCH ×4 (09:53→21:40)
[2017-01-03] MEDS: HYDROCHLOROTHIAZIDE 25 MG (HCTZ) TAB PO SCH (09:53)
[2017-01-03] MEDS: lisINopril 20 MG (ZESTRIL) TAB PO SCH (09:53)
--- NOTE | 2017-01-03 10:36 | Occupational Therapy Eval ---
OT Evaluation-General/PLF Medical Diagnosis Admission Date Jan 01, 2017 at 21:43 Medical Diagnosis: Left humeral fracture Onset Date: Jan 01, 2017 Therapy Diagnosis Therapy Diagnosis: Left humeral fracture Height/Weight Height (Feet): 5 Height (Inches): 5.00 Weight (Pounds): 166 Weight (Ounces): 5.0 Precautions Precautions/Isolations: Fall Prevention, Standard Precautions Safety Interventions: Bed Exit Alarm Weight Bear Status Weight Bearing Restriction: Weight Bearing/Tolerated Referral Referral Reason: Evaluation/Treatment Medical History Pertinent Medical History: CVA, Fractures Additional Medical History Lung cancer, along with humeral fracture a periprosthetic fracture of the left hip, back surgery x 4, bilateral hip replacements, DJD Current History Patient home when the fall occurred. She stated she had gone to the garage to retrieve food when she fell over her cat coming into the kitchen. She states she managed to sit upright in the floor until her grand daughter arrived. She was then brought by ambulance to the ER at [facility] for care. The fractures to the humerus and the hip were identified. She was then admitted. Surgery is not an option. Reviewed History: Yes Social History Home: Single Level Current Living Status: Alone Entry Into Home: Stairs With Railing Steps Into Home: 2 Steps Inside Home: 0 Other Obstacles: Numerous animals in the home. OT Current Status Subjective "I think I know who you are but i can't recall your name." Pain Numeric Pain Scale: 5-Moderate Pain Location: Joint Location Body Site: Hip Pain Description: Acute, Sharp Appearance Patient semi reclined in bed upon OT arrival. Agreeable to this assessment and she was able to remember this therapist from years ago. Mental Status/Objective Patient Orientation: Person, Place, Situation Current Glasses/Contacts: No Hearing Aids: No Dentures/Partials: Yes Hand Dominance: Right Upper Extremity ROM WNL on the right. No movement shoulder on the the left due to fracture with sling in place. Reports shoulder discomfort during movement of the left elbow. Left wrist, forearm and hand intact with closure to the distal dowell crease. Upper Extremity Coordination Intact right, sling on left arm but patient able to handle the phone bilaterally and demonstrates both hands to midline. Upper Extremity Sensation Intact per report Upper Extremity Strength RUE intact. LUE shoulder 0/5, distally 3/5 but limited due to pain. Edema: None present. ADL-Treatment Functional [place] Measure 0=Not Assessed/NA 4=Minimal Assistance 1=Total Assistance 5=Supervision or Setup 2=Maximal Assistance 6=Modified [place] 3=Moderate Assistance 7=Complete IndependenceIRFPAI Quality Coding Scale 6 Independent with activity with or without an assistive device 5 Patient requires set up or clean up by helper. Patient completes activity by themselves 4 Supervision or touching assist (CGA). [place] provide cues , steadying assist 3 The helper provides less than half the effort to complete the activity 2 The helper provides more than half the effort to complete the activity 1 Dependent. The helper does all the effort to complete an activity 7 Patient refused to complete or attempt activity 9 The patient did not perform the activity before the current illness or injury 88 Not attempted due to Medical conditions or safety concerns No ADL assessment at this time. OT Short Term Goals Short Term Goals Time Frame: Jan 10, 2017 Eating(FIM): 5 Grooming(FIM): 5 Bathing(FIM): 3 Bathing Location: L Arm, R Arm, L Upper Leg, R Upper Leg, L Lower Leg ( including foot), R Lower Leg (including foot), Chest, Abdomen, Buttocks, Perineal Area Upper Body Dressing(FIM): 4 Lower Body Dressing(FIM): 3 Toileting(FIM): 4 Transfers (B,C,W/C) (FIM): 4 Toilet/Commode Transfer(FIM): 4 Tub Transfer(FIM): 5 Shower Transfer(FIM): 5 Additional Short Term Goals: 1-Demonstrate ADL Tasks, 2-Verbalize Understanding , 3-ImproveStrength/[place] 1=Demonstrate adherence to instructed precautions during ADL tasks. 2=Patient will verbalize/demonstrate understanding of assistive devices/ modifications for ADL. 3=Patient will improve strength/tolerance for activity to enable patient to perform ADL's. OT Correction Goals Chief Program Officer Goals Time Frame: Jan 10, 2017 Eating (FIM): 6 Grooming(FIM): 6 Bathing(FIM): 4 Bathing Location: L Arm, R Arm, L Upper Leg, R Upper Leg, L Lower Leg ( including foot), R Lower Leg (including foot), Chest, Abdomen, Buttocks, Perineal Area Upper Body Dressing(FIM): 5 Lower Body Dressing(FIM): 5 Toileting(FIM): 5 Transfers (B,C,W/C) (FIM): 6 Toilet/Commode Transfer(FIM): 6 Tub Transfer(FIM): 6 Shower Transfer(FIM): 6 1=Demonstrate adherence to instructed precautions during ADL tasks. 2=Patient will verbalize/demonstrate understanding of assistive devices/ modifications for ADL. 3=Patient will improve strength/tolerance for activity to enable patient to perform ADL's. OT Education/Plan Problem List/Assessment Assessment: Decreased UE Strength, Impaired I ADL's, Impaired Self-Care Skills , Restricted Funct UE ROM Discharge Recommendations Plan/Recommendations: Continue POC Barriers to Progress None noted Target Placement Return home Patient/Family Goals Home Treatment Plan/Plan of Care Treatment,Training & Education: Yes Patient would benefit from OT for education, treatment and training to promote independence in ADL's, mobility, safety and/or upper extremity function for ADL' s. Plan of Care: ADL Retraining, Concurrent Therapy, Group Exercise/Act as Ind, UE Funct Exercise/Act Treatment Duration: Jan 10, 2017 Frequency: 5 times per week Estimated Hrs Per Day: .5 hour per day Agreement: Yes Rehab Potential: Good Time/GCodes Start Time: 10:25 Stop Time: 11:05 Total Time Billed (hr/min): 30 Billed Treatment Time Visit, [facility] G Codes Necessary: No MATTY LEMUS OT Jan 03, 2017 10:36
[2017-01-03 12:00] VITALS: BP 124/76
[2017-01-03] MEDS ORDERED: NS IV 1000 ML 1,000 ML IV SCH (12:00)
[2017-01-03] MEDS: NS IV 1000 ML 1,000 ML IV SCH ×2 (14:08→19:00)
[2017-01-03 16:00] VITALS: BP 97/54
[2017-01-03] MEDS: TEMAZEPAM 15 MG (RESTORIL) CAP PO SCH (19:54)
[2017-01-03 20:09] VITALS: BP 122/60
[2017-01-04 00:58] VITALS: BP 133/64
[2017-01-04] MEDS: HYDROcodone/APAP 10 MG/325 MG (LORTAB) TAB PO PRN ×2 (04:20→08:09)
[2017-01-04 04:51] VITALS: BP 121/71
[2017-01-04] MEDS: NS IV 1000 ML 1,000 ML IV SCH (04:58)
[2017-01-04] MEDS: METOCLOPRAMIDE 10 MG (REGLAN) TAB PO SCH (06:15)
[2017-01-04] MEDS: PANTOPRAZOLE 40 MG (PROTONIX) TAB PO SCH (06:15)
[2017-01-04] MEDS: LEVOTHYROXINE 50 MCG (LEVOTHROID) TAB PO SCH (06:15)
[2017-01-04 08:00] VITALS: BP 126/58
[2017-01-04] MEDS: hydrOXYzine (VISTARIL) 25 MG CAP PO SCH (08:01)
[2017-01-04] MEDS: lisINopril 20 MG (ZESTRIL) TAB PO SCH (08:01)
[2017-01-04] MEDS: amLODIPine 10 MG (NORVASC) TAB PO SCH (08:01)
[2017-01-04] MEDS: HYDROCHLOROTHIAZIDE 25 MG (HCTZ) TAB PO SCH (08:01)
[2017-01-04] MEDS: DOCUSATE SODIUM 100 MG (COLACE) CAP PO SCH (08:01)
--- NOTE | 2017-01-04 08:36 | Discharge Summary-Hospitalist ---
Diagnosis/Chief Complaint Date of Admission Jan 01, 2017 at 21:43 Date of Discharge Admission Diagnosis Left humerus fracture, left periprosthetic hip fracture Discharge Diagnosis left humerus fracture, left periprosthetic hip fracture (1) Fracture, humerus, head Status: Acute Assessment & Plan: Ortho consulted Recommended nonoperative management PT/OT Arm in Sling IRU today (2) Periprosthetic hip fracture Status: Acute Assessment & Plan: Ortho consulted appreciate recs Morphine for breakthrough pain Encouraged oral medications as primary source of pain relief PT/OT (3) H/O: CVA (cerebrovascular accident) Status: Chronic Assessment & Plan: Continue Plavix Not on statin for unknown reason (4) Hypothyroidism Assessment & Plan: Cont Synthroid (5) Essential (primary) hypertension Status: Chronic Assessment & Plan: Continue home meds (6) History of lung cancer Status: Chronic Assessment & Plan: s/p lobectomy Follows with Dr Rueda (7) Microcytic anemia Status: Chronic Assessment & Plan: history of thalassemia Hgb stable (8) Prophylactic measure Assessment & Plan: Lovenox Saline Lock Reg Diet Discharge Summary Discharge Physical Examination Allergies: Coded Allergies: valsartan (Verified Allergy, Intermediate, HIVES, 02/01/15) Sulfa (Sulfonamide Antibiotics) (Verified Allergy, Unknown, 04/15/08) prochlorperazine (Verified Allergy, Unknown, 04/15/08) Vitals & I&Os Vital Signs Date Time Temp Pulse Resp B/P (MAP) Pulse Ox O2 Delivery O2 Flow Rate FiO2 01/04/17 04:51 98.7 90 18 121/71 96 Room Air Hospital Course Pt presented to the ER after a fall at home due to left arm and hip pain. She was found to have a left humerus fracture and left periprosthetic hip fracture. Ortho was consulted and recommended non operative treatment. Pain was managed initially with IV medications and she was transferred to IRU for extensive rehab. Discharge Home Medications: Active Scripts Active Reported Preservision Ared[place] 2 Softgel (Vit C/E/Zn/Coppr/Lutein/Zeaxan) 1 Each Capsule 1 Cap PO BID Resveratrol 100 Mg Capsule 100 Mg PO DAILY Vitamin B Complex 1 Each Capsule 1 Cap PO DAILY Fish Oil 1,000 mg Capsule ([place] 3 Polyunsat Fatty Acids) 1,000 Mg Cap 2,000 Mg PO BID TAKES 2 (1000MG) CAPSULES Temazepam 15 Mg Capsule 15 Mg PO HS Amlodipine Besylate 10 Mg Tablet 10 Mg PO DAILY Hydrocodon-Acetaminophn 10-325 (Hydrocodone/Acetaminophen) 1 Each Tablet 1 Tab PO Q6H PRN Lisinopril 40 Mg Tablet 40 Mg PO HS Pantoprazole Sodium 40 Mg Tablet.dr 40 Mg PO DAILY Levothyroxine Sodium 50 Mcg Tablet 50 Mcg PO DAILY Plavix (Clopidogrel Bisulfate) 75 Mg Tablet 75 Mg PO Q48H Metoclopramide HCl 10 Mg Tablet 10 Mg PO TIDWM Hydrochlorothiazide 25 Mg Tablet 25 Mg PO DAILY Instructions to patient/family Please see electronic discharge instructions given to patient. Clinical Quality Measures DVT/VTE Risk/Contraindication: Risk Factor Score Per Nursin RFS Level Per Nursing on Admit: 4+=Very High Copy Copies To 1: ALEXIS JACKSON DO Problem Qualifiers (1) Fracture, humerus, head: Encounter type: initial encounter Fracture type: closed Laterality: left Qualified Codes: S42.292A - Other displaced fracture of upper end of left humerus, initial encounter for closed fracture (2) Periprosthetic hip fracture: Encounter type: initial encounter Qualified Codes: M97.8XXA - Periprosthetic fracture around other internal prosthetic joint, initial encounter; Z96.649 - Presence of unspecified artificial hip joint (3) Hypothyroidism: Hypothyroidism type: acquired Qualified Codes: E03.9 - Hypothyroidism, unspecified FARHEEN PATINO MD Jan 04, 2017 08:36
== END 2017-01-04 09:57 | DRG 560 ==
LOC: EDUNIT# 19:49 → ER 19:50 → 4TH 21:43
PROVIDERS: ADMIT Internal Medicine; ATTEND Internal Medicine
DX: M97.02XA Periprosthetic fracture around internal prosthetic left hip joint, initial encounter (principal); S42.252A Displaced fracture of greater tuberosity of left humerus, initial encounter for closed fracture; I10 Essential (primary) hypertension; E11.9 Type 2 diabetes mellitus without complications; Q21.1 Atrial septal defect; I34.1 Nonrheumatic mitral (valve) prolapse; E03.9 Hypothyroidism, unspecified; D64.9 Anemia, unspecified; K21.9 Gastro-esophageal reflux disease without esophagitis; M19.91 Primary osteoarthritis, unspecified site; M54.9 Dorsalgia, unspecified; R11.0 Nausea; W01.0XXA Fall on same level from slipping, tripping and stumbling without subsequent striking against object, initial encounter; Y92.099 Unspecified place in other non-institutional residence as the place of occurrence of the external cause; Z87.891 Personal history of nicotine dependence; Z96.643 Presence of artificial hip joint, bilateral; Z86.73 Personal history of transient ischemic attack (TIA), and cerebral infarction without residual deficits; Z85.118 Personal history of other malignant neoplasm of bronchus and lung; Z90.2 Acquired absence of lung [part of]; Z85.828 Personal history of other malignant neoplasm of skin; Z89.019 Acquired absence of unspecified thumb
CPT/HCPCS: 36415; 71010; 73060; 80048; 80053; 85025; 96374; 96375; 96376

== ENCOUNTER 2017-01-04 10:14 | Inpatient (IN) | payer MEDICARE ==
[~2017-01-04] VITALS: Ht 162.6 cm; Wt 73.1 kg
[~2017-01-04 10:14] MED LIST changes: +AMLO10TA2 PO; +HYDR-3820 PO; +LEVO50TA6 PO; +LISI40TA PO; +METO10TA3 PO; +OMG1KC PO; +PANT40TA3 PO; +TEMA15CA PO; +VITA1CAP PO; +morphine INJ 4 MG/ML 1 ML (VIAL/SYRINGE) IVP PRN
--- NOTE | 2017-01-04 10:21 | Physical Therapy Evaluation ---
PT Evaluation-General Medical Diagnosis Admission Date Jan 04, 2017 at 10:14 Medical Diagnosis: Left humerus fx; left femur fx Onset Date: Jan 01, 2017 Therapy Diagnosis Therapy Diagnosis: weakness; abn gait Height/Weight Height (Feet): 5 Height (Inches): 5.00 Weight (Pounds): 166 Weight (Ounces): 5.0 Precautions Precautions/Isolations: Standard Precautions Weight Bear Status Right Lower Extremity: Right Full Weight Bearing Left Lower Extremity: Left Weight Bearing/Tolerated Left UE in a sling Referral Physician: Hardeep Reason for Referral: Evaluation/Treatment Medical History Pertinent Medical History: CVA, Fractures Additional Medical History skin CA; lung CA Current History Pt tripped over her cat at home and sustained above noted fractures. No surgical intervention indicated; conservative treatment at this time. Reviewed History: Yes Social History Home: Single Level Current Living Status: Alone Entry Into Home: Stairs With Railing PT Steps Into Home: 2 (large platform steps) Prior/Core FIM Prior Level of Function Functional [place] Measure 0=Not Assessed/NA 4=Minimal Assistance 1=Total Assistance 5=Supervision or Setup 2=Maximal Assistance 6=Modified [place] 3=Moderate Assistance 7=Complete [place] Bed Mobility: 7 Transfers (B,C,W/C) (FIM): 6 Gait: 6 (cane used outside of her home. ) active in her home; active with community mobility; drives. PT Evaluation-Current Subjective Pt agreeable. Reports she is fearful of pain when she tries to move. Pain Numeric Pain Scale: 7 Location: Left Pain Description: Ache Comment: arm and leg Pt/Family Goals Her goal is to return home alone as before Objective Patient Orientation: Person, Place, Time, Situation Problem Solving: Fair ROM/Strength ROM Lower Extremities WFL Strenght Lower Extremities Right LE is grossly 4+/5; left LE is grossly 3/5 -- mainly limited by pain Integumentary/Posture Integumentary Refer to nursing note.s Bowel Incontinence: No Bladder Incontinence: No Posture normal and symmetrical Neuromuscular (Tone, Coordination, Reflexes) WFL Sensory Vision: Functional Hearing: Functional Hand Dominance: Right Sensation Right Lower Extremit: Intact Sensation Left Lower Extremity: Intact Transfers Functional [place] Measure 0=Not Assessed/NA 4=Minimal Assistance 1=Total Assistance 5=Supervision or Setup 2=Maximal Assistance 6=Modified [place] 3=Moderate Assistance 7=Complete IndependenceIRFPAI Quality Coding Scale 6 Independent with activity with or without an assistive device 5 Patient requires set up or clean up by helper. Patient completes activity by themselves 4 Supervision or touching assist (CGA). [place] provide cues , steadying assist 3 The helper provides less than half the effort to complete the activity 2 The helper provides more than half the effort to complete the activity 1 Dependent. The helper does all the effort to complete an activity 7 Patient refused to complete or attempt activity 9 The patient did not perform the activity before the current illness or injury 88 Not attempted due to Medical conditions or safety concerns Transfers (B, C, W/C) (FIM): 2 Scootin Rollin Roll Left to Right (QC): 3 Supine to/from Sit: 2 Sit to/from Stand: 2 Sit to Lying (QC): 2 Lying to Sitting/Side of Bed(Q: 2 Sit to Stand (QC): 2 Chair/Vzu-ib-Qeqec Xfer(QC): 2 Car Transfer (QC): 2 Pt is fearful of the transition of sit to stand. Gait Does the Patient Walk?: Yes Mode of Locomotion: Walk Anticipated Mode of Locomotion: Walk Gait (FIM): 0 (unable to initiate gait at this time; only SPT) Distance (FIM): 0=does not occure Walk 10 feet (QC): 88 Walk 50 ft with 2 Turns(QC): 88 Walk 150 ft (QC): 88 Walking 10ft/uneven surface-QC: 88 Comments/Gait Description Pt unable to take steps this visit; unsure if we will use a one handed walker or a quad cane for gait Wheelchair Training Does the Pt Use a Wheelchair?: No Stairs Stairs (FIM): 0 (Pt unable to take a step to even attempt stairs.) 1 Step (curb) (QC): 88 4 Steps (QC): 88 12 Steps (QC): 88 If not tested on admit;explain unable to attempt Balance Sitting Static: Good Sitting Dynamic: Good Standing Static: Fair Standing Dynamic: Fair Picking up an Object (QC): 88 (unsafe;unable ) Treatment Sit to inspector integrated circuits // bars 3 reps with max assist to stand and skilled cues for sequencing and task completion. Pt Able to stand and WBAT on the left; able to maintain standing x 30 sec each rep with CGA. Assessment/Needs Post fall at home with left U/LE fractures that are significantly impairing functional mobility. She has weakness and impaired ability rachel mobilize herself due the fractures; pain is also a factor at this time. She is an excellent candidate for skilled PT intervention to address adaption techniques to facility mod indep mobility to allow her to return home and care for herself. She was very active at her PLOF and has excellent potential to make good gains. Rehab Potential: Good PT Short Term Goals Short Term Goals Time Frame: Jan 11, 2017 Transfers (B,C,W/C) (FIM): 4 Gait (FIM): 2 Distance (FIM): 4=527-13 ft PT Assembler Product Goals Assembler Product Goals PT Assembler Product Goals Time Frame: Jan 25, 2017 Transfers (B,C,W/C) (FIM): 6 Sit to Lying (QC): 6 Lying-Sitting on Side/Bed(QC): 6 Sit to Stand (QC): 6 Roll Left to Right (QC): 6 Chair/Pyi-ap-Klcxy Xfer(QC): 6 Car Transfer (QC): 6 Does the Patient Walk: Yes Gait (FIM): 6 Gait distance (FIM): 3=150 ft Walk 10 feet (QC): 6 Walk 10ft-Uneven Surface(QC): 6 Walk 50ft with 2 Turns (QC): 6 Walk 150 ft (QC): 6 Gait Assistive Device: Cane Small Base Quad (or 1 handed walker) Does the Pt use WC or Scooter?: No Stairs (FIM): 2 # of Steps: 4 1 Step (curb) (QC): 5 4 Steps (QC): 5 12 Steps (QC): 0 (dash) Picking up an Object (QC): 5 PT Plan Problem List Problem List: Activity Tolerance, Functional Strength, Safety, Balance, Gait, Transfer, Bed Mobility Treatment/Plan Treatment Plan: Continue Plan of Care Treatment Plan: Bed Mobility, Education, Functional Activity Tacho, Functional Strength, Group Therapy, Gait, Safety, Therapeutic Exercise, Transfers Treatment Duration: Jan 25, 2017 Frequency: At least 5 of 7 days/Wk (IRF) Estimated Hrs Per Day: 1.5 hours per day Patient and/or Family Agrees t: Yes Safety Risks/Education Patient Education: Transfer Techniques, Safety Issues Teaching Recipient: Patient Teaching Methods: Discussion Response to Teaching: Reinforcement Needed Discharge Recommendations Therapy D/C Recommendations: Physical Therapy Home Care Time/GCodes Time In: 900 Time Out: 1015 Total Billed Treatment Time: 75 Total Billed Treatment visit EVM 30 FA 45 IRMA SAM PT Jan 04, 2017 10:21
[2017-01-04] MEDS ORDERED: ONDANSETRON 4 MG/2 ML (SDV) Z0FRAN IV PRN (11:00)
[2017-01-04] MEDS ORDERED: CATHETER FLUSH 10 ML SYR IV PRN (11:00)
[2017-01-04] MEDS: METOCLOPRAMIDE 10 MG (REGLAN) TAB PO SCH ×2 (11:56→17:19)
[2017-01-04] MEDS: hydrOXYzine (VISTARIL) 25 MG CAP PO SCH ×3 (11:56→20:57)
[2017-01-04] MEDS: HYDROcodone/APAP 10 MG/325 MG (LORTAB) TAB PO PRN ×3 (11:57→21:28)
--- NOTE | 2017-01-04 12:18 | ST Cognitive Linguistic Eval ---
Speech Evaluation-General Medical Diagnosis Left humerus fx; left femur fx Onset Date: Jan 01, 2017 Therapy Diagnosis Therapy Diagnosis: Cognitive Linguistic Skills WNL Precautions Precautions/Isolations: Fall Prevention, Standard Precautions, Pressure Ulcer Referral Referring Physician: Dr. Johnie Meier Reason for Referral: Evaluation/Treatment Cognitive Evaluation Medical History Pertinent Medical History: CVA, Fractures Reviewed History: Yes Social History Current Living Status: Alone Speech PLF-Current Status Prior Level of Function The patient denied prior challenges with speech, language or cognition. Subjective The patient was recently admitted to [facility] following a humerus and femur fracture. The patient greeted the clinician appropriately and was agreeable to participation in the cognitive treatment session. Language Eval: Auditory Comprehends Simple Yes/No Ques: Functional Indent/Objects Multiple Garcia: Functional Ident/Pics in Multiple Garcia: Functional Follows 1-Step Commands: Functional Follows Complex Directions: Functional Follows General Conversations: Functional Language Eval: Verbal Language Completes Spontaneous Greeting: Functional Produces Auto, Serial Info: Functional Imitates Simple Words/Phrases: Functional Word Finding: Functional Requests Basic Needs: Functional States Basic Personal Info: Functional Expresses Complex Ideas: Functional Cognitive Patient Orientation The patient was independently oriented to month, day of week, date, and year. Objective Cognitive Domain Attention: WNL Memory: WNL Problem Solving: Functional Executive Functions: WNL Objective Impression The patient demonstrated cognitive linguistic skills WNL and appropriate for completion of ADL's. Communication/Social Cognition Comprehension: 6 Expression: 6 Social Interaction: 6 Problem Solvin Memory: 6 Speech Patient Assess Expression of Ideas/Wants: Expression (4) Understanding [place] Content: Understands (4) Brief Interview-Mental Status: Yes Repetition of Three Words: Three (3) Temporal Orientation: Year: Correct (3) Temporal Orientation: Month: Accurate within 5 days(2) Temporal Orientation: Day: Correct (1) Recall : Wear to say "Sock": Yes, no cue required (2) Recall : Color: Yes, no cue required (2) Recall : Bed: Yes, no cue required (2) Speech-Plan Treatment Plan Speech Therapy Treatment Plan: Discontinue ST Evaluation, only. Frequency: Modified Program (IRF) (Evaluation, only.) Estimated Hrs Per Day: Other (Evaluation, only.) Rehab Potential: Good Safety Risks/Education Teaching Recipient: Patient Teaching Methods: Discussion Response to Teaching: Verbalize Understanding Education Topics Provided: Results, Plan of Care, Recommendations Time Speech Therapy Time In: 11:45 Speech Therapy Time Out: 12:00 Total Billed Time: 15 Billed Treatment Time 1, MIKE BAEZ Jan 04, 2017 12:18
--- NOTE | 2017-01-04 12:45 | Occupational Therapy Eval ---
OT Evaluation-General/PLF Medical Diagnosis Admission Date Jan 04, 2017 at 10:14 Medical Diagnosis: Left humerus fx; left femur fx Onset Date: Jan 01, 2017 Therapy Diagnosis Therapy Diagnosis: decr self care, weakness, decr funct use L UE, decr funct mobil Height/Weight Height (Feet): 5 Height (Inches): 5.00 Weight (Pounds): 166 Weight (Ounces): 5.0 Precautions Precautions/Isolations: Fall Prevention, Standard Precautions, Pressure Ulcer Weight Bear Status Weight Bearing Restriction: Weight Bearing/Tolerated Location Restriction: L LE WBS (Ord/Comment): L arm in sling Referral Physician: Hardeep Medical History Pertinent Medical History: Arthritis, CVA (affected L side), Fractures, GERD, HTN, Hypothroidism Additional Medical History Chronic back pain, DJD. Bilat hip replacements. back surgery x 4. Lung cancer with lobectomy. Skin cancer. Thumb partial amputation Current History Pt tripped on cat at home and fell. L humeral fx and L prox femur fx. Both treated conservatively. L arm in sling Reviewed History: Yes Social History Home: Single Level Current Living Status: Alone Entry Into Home: Stairs With Railing Steps Into Home: 2 (large platform steps) ADL-Prior Level of Function ADL PLOF Comments Pt reported that she has been able to manage her basic self care needs prior to fall. She is a retired ER nurse and still drives. She has two cats and two dogs at home. OT Current Status Subjective Pt seen in room, up in w/c, agreeable to OT. Pain reported 6-7 in L shoulder and described as 'ache". She said that it was more comfortable without a pillow behind it but did frequently adjust sling. Appearance Alert, cooperative Mental Status/Objective Patient Orientation: Person, Place, Time, Situation Attachments: [place] Current Glasses/Contacts: No Hearing Aids: No Dentures/Partials: No Hand Dominance: Right Upper Extremity ROM R UE grossly WFL. L shoulder not tested. L elbow with functional movement, as well as wrist and fingers. Upper Extremity Strength R UE grossly 4/5 throughout. L shoulder not tested. Elbow and distal grossly 3/ 5 but limited by discomfort ADL-Treatment ADL-Current Multiple trials needed sit to stand to get onto BSC. Unable to use sliding board. Stood better with FWW in front of her to support her once up. Pt walked about 5 feet from BSC to EOB, FWW, help steering FWW. Help needed to get two legs into bed. Pt educ mod technique. Pt left up in bed, 3 rails up, all needs met. Functional [place] Measure 0=Not Assessed/NA 4=Minimal Assistance 1=Total Assistance 5=Supervision or Setup 2=Maximal Assistance 6=Modified [place] 3=Moderate Assistance 7=Complete IndependenceIRFPAI Quality Coding Scale 6 Independent with activity with or without an assistive device 5 Patient requires set up or clean up by helper. Patient completes activity by themselves 4 Supervision or touching assist (CGA). [place] provide cues , steadying assist 3 The helper provides less than half the effort to complete the activity 2 The helper provides more than half the effort to complete the activity 1 Dependent. The helper does all the effort to complete an activity 7 Patient refused to complete or attempt activity 9 The patient did not perform the activity before the current illness or injury 88 Not attempted due to Medical conditions or safety concerns Eating (FIM): 5 (Setup. Able to feed herself without difficulty. No dentures) Eating (QC): 5 Grooming (FIM): 5 (setup to brush teeth, wash face and hands) Oral Hygiene (QC): 5 Bathing (FIM): 3 (Sponge bath. ) Bathing Location: L Arm, R Arm (part of), L Upper Leg, R Upper Leg, Chest, Abdomen Shower/Bathe Self (QC): 3 Upper Body Dressing (FIM): 1 (Help to thread each arm in shirt/gown, get it over her head, pull it down. Pt educ mod technique) Upper Body Dressing (QC): 1 Lower Body Dressing (FIM): 1 (Help to thread each foot into pants, pull them up. Two person assist to stand. Unable to get slipper socks off and on) Lower Body Dressing (QC): 1 On/Off Footwear (QC): 1 (Unable to get slipper socks off and on) Toileting (FIM): 1 (Unable to manage clothing or hygiene. BSC, FWW) Toileting Hygiene (QC): 1 Toilet/Commode Transfer (FIM): 1 (Two person assist sit to stand, then able to stand with FWW, BSC) Toilet Transfer (QC): 1 Education OT Patient Education: Modified ADL techniques, Purpose of tx/functional activities, Rehab process, Transfer techniques, Use of adapted equipment Teaching Recipient: Patient Teaching Methods: Demonstration, Discussion Response to Teaching: Verbalize Understanding, Return Demonstration, Reinforcement Needed OT Short Term Goals Short Term Goals Time Frame: Jan 11, 2017 Bathing(FIM): 4 Upper Body Dressing(FIM): 3 Lower Body Dressing(FIM): 3 Toileting(FIM): 3 Toilet/Commode Transfer(FIM): 4 Additional Short Term Goals: 2-Verbalize Understanding, 3-ImproveStrength/Tacho 1=Demonstrate adherence to instructed precautions during ADL tasks. 2=Patient will verbalize/demonstrate understanding of assistive devices/ modifications for ADL. 3=Patient will improve strength/tolerance for activity to enable patient to perform ADL's. OT Group Home Goals Group Home Goals Time Frame: Jan 25, 2017 Eating (FIM): 6 Eating (QC): 6 Groomin Oral Hygiene (QC): 6 Bathing(FIM): 5 Shower/Bathe Self (QC): 5 Upper Body Dressing(FIM): 5 Upper Body Dressing (QC): 5 Lower Body Dressing(FIM): 5 Lower Body Dressing (QC): 5 On/Off Footwear (QC): 5 Toileting(FIM): 6 Toileting Hygiene (QC): 5 Toilet/Commode Transfer(FIM): 5 Toilet/Commode Transfer (QC): 5 Shower Transfer(FIM): 5 Additional Goals: 2-Verbalize Understanding, 3-ImproveStrength/Tacho 1=Demonstrate adherence to instructed precautions during ADL tasks. 2=Patient will verbalize/demonstrate understanding of assistive devices/ modifications for ADL. 3=Patient will improve strength/tolerance for activity to enable patient to perform ADL's. OT Education/Plan Problem List/Assessment Assessment: Decreased Activ Tolerance, Decreased UE Strength, Dependent Transfers, Impaired Self-Care Skills, Restricted Funct UE ROM Pt would benefit from skilled OT to increase her independence in basic self care to allow her to safely return to her home and to decrease caregiver burden. Discharge Recommendations Plan/Recommendations: Continue POC Target Placement home Treatment Plan/Plan of Care Treatment,Training & Education: Yes Patient would benefit from OT for education, treatment and training to promote independence in ADL's, mobility, safety and/or upper extremity function for ADL' s. Plan of Care: ADL Retraining, Functional Mobility, Group Exercise/Act as Ind ( education, exercise, funct activity, activ tolerance, ), UE Funct Exercise/Act, UE Neuromus Re-Ed/Coord Treatment Duration: Jan 25, 2017 Frequency: At least 5 of 7 days/Wk (IRF) Estimated Hrs Per Day: 1.5 hours per day Agreement: Yes Rehab Potential: Good Time/GCodes Start Time: 10:20 Stop Time: 11:35 Total Time Billed (hr/min): 75 Billed Treatment Time visit, 15 minutes evaluation moderate intensity, 60 minutes ADL YAMILET JERONIMO OT Jan 04, 2017 12:45
--- NOTE | 2017-01-04 14:44 | Physical Therapy Daily Note ---
PT Daily Note-Current Subjective Patient in bed pre tx, agrees to PT. Patient has pain of 7/10 mostly in her left arm but also in her leg more with activity. Appearance Patient in bed post tx with nurse call, phone, tray, in the room. Mental Status Patient Orientation: Normal For Age Transfers Functional [place] Measure 0=Not Assessed/NA 4=Minimal Assistance 1=Total Assistance 5=Supervision or Setup 2=Maximal Assistance 6=Modified [place] 3=Moderate Assistance 7=Complete IndependenceIRFPAI Quality Coding Scale 6 Independent with activity with or without an assistive device 5 Patient requires set up or clean up by helper. Patient completes activity by themselves 4 Supervision or touching assist (CGA). [place] provide cues , steadying assist 3 The helper provides less than half the effort to complete the activity 2 The helper provides more than half the effort to complete the activity 1 Dependent. The helper does all the effort to complete an activity 7 Patient refused to complete or attempt activity 9 The patient did not perform the activity before the current illness or injury 88 Not attempted due to Medical conditions or safety concerns Weight Bearing Right Lower Extremity: Right Full Weight Bearing Left Lower Extremity: Left Weight Bearing/Tolerated with standby assistance Left UE in a sling Exercises Supine Ex: Ankle pumps, Quad Set, Heel Slides, Short Arc Quads, Straight leg raise, Hip abd/add Supine Reps: 20 Patient performed exercises with AAROM except for QS and AP. Treatments functional strengthening to improve movement of left leg Assessment Current Status: Fair Progress PT Short Term Goals Short Term Goals Time Frame: Jan 11, 2017 Transfers (B,C,W/C) (FIM): 4 Gait (FIM): 2 Distance (FIM): 7=535-78 ft PT Prison Goals Highway Engineering Teacher Goals PT Prison Goals Time Frame: Jan 25, 2017 Transfers (B,C,W/C) (FIM): 6 Sit to Lying (QC): 6 Lying-Sitting on Side/Bed(QC): 6 Sit to Stand (QC): 6 Rollin Roll Left to Right (QC): 6 Chair/Lsp-sb-Psogg Xfer(QC): 6 Car Transfer (QC): 6 Does the Patient Walk: Yes Gait (FIM): 6 Gait distance (FIM): 3=150 ft Walk 10 feet (QC): 6 Walk 10ft-Uneven Surface(QC): 6 Walk 50ft with 2 Turns (QC): 6 Walk 150 ft (QC): 6 Gait Assistive Device: Cane Small Base Quad (or 1 handed walker) Does the Pt use WC or Scooter?: No Stairs (FIM): 2 # of Steps: 4 1 Step (curb) (QC): 5 4 Steps (QC): 5 12 Steps (QC): 0 (dash) Picking up an Object (QC): 5 PT Plan Problem List Problem List: Activity Tolerance, Functional Strength, Safety, Balance, Gait, Transfer, Bed Mobility, ROM Treatment/Plan Treatment Plan: Continue Plan of Care Treatment Plan: Bed Mobility, Education, Functional Activity Tacho, Functional Strength, Group Therapy, Gait, Safety, Therapeutic Exercise, Transfers Treatment Duration: Jan 25, 2017 Frequency: At least 5 of 7 days/Wk (IRF) Estimated Hrs Per Day: 1.5 hours per day Patient and/or Family Agrees t: Yes Safety Risks/Education Patient Education: Correct Positioning, Safety Issues Teaching Recipient: Patient Teaching Methods: Demonstration, Discussion Response to Teaching: Reinforcement Needed Time/GCodes Time In: 1425 Time Out: 1440 Total Billed Treatment Time: 15 Total Billed Treatment 1 visit EX Patrick' NIGHAT LANZA PT Jan 04, 2017 14:44
[2017-01-04] MEDS: OMEGA 3 (FISH OIL) 1000 MG CAP PO SCH (17:19)
[2017-01-04 18:00] VITALS: BP 148/78
[2017-01-04 19:03] VITALS: BP 148/78
[2017-01-04] MEDS: DOCUSATE SODIUM 100 MG (COLACE) CAP PO SCH (20:57)
[2017-01-04] MEDS: TEMAZEPAM 15 MG (RESTORIL) CAP PO SCH (20:57)
[2017-01-04] MEDS ORDERED: NON-FORMULARY MEDICATION 1 EA EA PO SCH (21:00)
[2017-01-05 04:54] LABS: BILIRUBIN,URINE NEGATIVE (NEGATIVE); KETONES,URINE NEGATIVE (NEGATIVE); LEUKOCYTE ESTERASE ,URINE 1+ (NEGATIVE); NITRITE,URINE NEGATIVE (NEGATIVE); PH,URINE 6 (5-9); PROTEIN,URINE NEGATIVE (NEGATIVE); UROBILINOGEN,URINE NORMAL (NORMAL)
[2017-01-05 05:36] VITALS: BP 147/78
[2017-01-05] MEDS: OMEGA 3 (FISH OIL) 1000 MG CAP PO SCH ×2 (06:00→17:24)
[2017-01-05] MEDS: LEVOTHYROXINE 50 MCG (LEVOTHROID) TAB PO SCH (06:00)
[2017-01-05] MEDS: METOCLOPRAMIDE 10 MG (REGLAN) TAB PO SCH ×3 (06:00→17:24)
[2017-01-05] MEDS: PANTOPRAZOLE 40 MG (PROTONIX) TAB PO SCH (06:00)
[2017-01-05] MEDS: HYDROcodone/APAP 10 MG/325 MG (LORTAB) TAB PO PRN ×4 (06:25→20:39)
[2017-01-05] MEDS ORDERED: lisINopril 20 MG (ZESTRIL) TAB PO SCH (09:00)
[2017-01-05] MEDS ORDERED: NON-FORMULARY MEDICATION 1 EA EA PO SCH (09:00)
--- NOTE | 2017-01-05 10:08 | PM&R Post Admission Assessment ---
Post Admission Physician Asses The preadmission screen agrees with the post admission assessment that the patient is a good candidate for inpatient rehabilitation. The patient will have a comprehensive program of inpatient rehabilitation with a goal of maximizing level of functional independence prior to discharge home with [facility]. The patient will have PT/OT ninety minutes per day, each discipline , five days a week for gait, strengthening, conditioning, balance, ADLs, any patient/family/caregiver training as necessary. Speech therapy to do cognitive assessment and treat as indicated. Rehabilitation nursing to assist with bowel, bladder, skin, wound care, medication administration, pain management. Sand Cutting Machine Operator to assist with discharge planning, community reentry. SCD's for DVT prophylaxis. She appears to be well motivated to participate in three hours of therapy a day. She should be able to tolerate three hours of therapy a day from a medical standpoint. She should benefit from the three hours of therapy a day. She has a reasonable discharge plan, reasonable discharge rehabilitation goals and a supportive family. She has various comorbidities that need to be closely monitored with medications and treatments adjusted on a daily basis as needed. These include: HTN Late effects of stroke chronic back pain Barriers to discharge for this patient who had been independent prior to this are for her to be modified independent to supervision for ADLs and mobility skills prior to discharge home with [facility], so as to lessen the burden of the caregivers.She had been Modified Independent with a cane prior to this fall. Risks for this patient include: 1. Fall 2. Fracture 3. DVT 4. Pulmonary embolism 5. Wound infection 6. Skin breakdown 7. Contractures 8. Poorly controlled pain 9. Urinary retention 10. UTI 11. Respiratory infection 12. Aspiration 13. Poorly controlled HTN Estimated Length of Stay: 14 days Prognosis: Rehab prognosis appears good for goal of discharge home with [facility] modified independent to supervision for ADLs and mobility skills. REBEKAH GRECO MD Jan 05, 2017 10:08
[2017-01-05] MEDS: PYRIDOXINE (VITAMIN B-6) 50 MG TABLET PO SCH (11:51)
[2017-01-05] MEDS: DOCUSATE SODIUM 100 MG (COLACE) CAP PO SCH ×2 (11:52→20:39)
[2017-01-05] MEDS: HYDROCHLOROTHIAZIDE 25 MG (HCTZ) TAB PO SCH (11:52)
[2017-01-05] MEDS: amLODIPine 10 MG (NORVASC) TAB PO SCH (11:52)
[2017-01-05] MEDS: CLOPIDOGREL 75 MG (PLAVIX) TABLET PO SCH (11:52)
[2017-01-05] MEDS: hydrOXYzine (VISTARIL) 25 MG CAP PO SCH ×4 (11:52→20:39)
--- NOTE | 2017-01-05 12:13 | Physical Therapy Daily Note ---
PT Daily Note-Current Subjective Pt. in bed, nursing reports pt. declining to get out of bed. 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 Patient completes activity by themselves 4 Supervision or touching assist (CGA). [place] provide cues , steadying assist 3 The helper provides less than half the effort to complete the activity 2 The helper provides more than half the effort to complete the activity 1 Dependent. The helper does all the effort to complete an activity 7 Patient refused to complete or attempt activity 9 The patient did not perform the activity before the current illness or injury 88 Not attempted due to Medical conditions or safety concerns Transfers (B, C, W/C) (FIM): 3 Scootin Rollin Supine to/from Sit: 3 Sit to/from Stand: 3 very slow moving in out bed and scooting Weight Bearing Right Lower Extremity: Right Full Weight Bearing Left Lower Extremity: Left Weight Bearing/Tolerated with standby assistance Left UE in a sling Gait Training Does the Patient Walk?: Yes Gait (FIM): 1 Distance (FIM): 1=up to 49 ft (10ft,5ft) Gait Level of Assist: 3 Gait Persons Needed: 1 Gait Assistive Device: Walker Center-Hold required education in use of CHW, needed assist to advance walker as well as wc follow up, and sequence for gait Exercises Supine Ex: Ankle pumps, Quad Set, Rolling, Glut sets, Heel Slides, Short Arc Quads, Scooting, Straight leg raise (assist), Hip abd/add (assist) Seated Therapy Exercises: Ankle pumps, Sit to stand, Long arc quads Seated Reps: 8 Treatments up in w/c after Rx with cushion applied. call charles etc needs met Assessment Current Status: Good Progress PT Short Term Goals Short Term Goals Time Frame: Jan 11, 2017 Gait (FIM): 2 Distance (FIM): 1=916-09 ft PT Float Builder Goals Custodial Goals PT Float Builder Goals Time Frame: Jan 25, 2017 Transfers (B,C,W/C) (FIM): 6 Sit to Lying (QC): 6 Lying-Sitting on Side/Bed(QC): 6 Sit to Stand (QC): 6 Rollin Roll Left to Right (QC): 6 Chair/Kno-re-Nmere Xfer(QC): 6 Car Transfer (QC): 6 Does the Patient Walk: Yes Gait (FIM): 6 Gait distance (FIM): 3=150 ft Walk 10 feet (QC): 6 Walk 10ft-Uneven Surface(QC): 6 Walk 50ft with 2 Turns (QC): 6 Walk 150 ft (QC): 6 Gait Assistive Device: Cane Small Base Quad (or 1 handed walker) Does the Pt use WC or Scooter?: No Stairs (FIM): 2 # of Steps: 4 1 Step (curb) (QC): 5 4 Steps (QC): 5 12 Steps (QC): 0 (dash) Picking up an Object (QC): 5 PT Plan Treatment/Plan Treatment Plan: Continue Plan of Care Treatment Plan: Bed Mobility, Education, Functional Activity Tacho, Functional Strength, Group Therapy, Gait, Safety, Therapeutic Exercise, Transfers Treatment Duration: Jan 25, 2017 Frequency: At least 5 of 7 days/Wk (IRF) Estimated Hrs Per Day: 1.5 hours per day Patient and/or Family Agrees t: Yes Safety Risks/Education Patient Education: Gait Training, Transfer Techniques, Correct Positioning, Disease Process, Safety Issues Teaching Recipient: Patient Teaching Methods: Demonstration, Discussion Response to Teaching: Verbalize Understanding, Return Demonstration, Reinforcement Needed Time/GCodes Time In: 1105 Time Out: 1135 Total Billed Treatment Time: 30 Total Billed Treatment 1,EX15,FA15 G Codes Necessary: AYLA Sherman CUSTOMS ENTRY WRITER Jan 05, 2017 12:13
[2017-01-05 18:13] VITALS: BP 127/72
[2017-01-05] MEDS: lisINopril 20 MG (ZESTRIL) TAB PO SCH (20:39)
[2017-01-05] MEDS: TEMAZEPAM 15 MG (RESTORIL) CAP PO SCH (20:39)
--- NOTE | 2017-01-06 00:09 | HISTORY AND PHYSICAL ---
DATE OF SERVICE: CHIEF COMPLAINT: Difficulty with walking. HISTORY OF PRESENT ILLNESS: The patient is a 76-year-old female with past medical history of lung cancer status post lumpectomy, hypertension, right CVA with mild left hemiparesis and thalassemia who presented to ED following a fall at home on 01/01/2017. She was admitted after she was found to have a left humerus fracture and periprosthetic left hip fracture. Case was discussed with Dr. Bae orthopedics by phone, who recommended nonoperative treatment. The patient was provided with a sling for the left arm and made weightbearing as tolerated left lower extremity. She is now referred to inpatient rehabilitation unit for ongoing therapies with goal to return home alone. She has been modified independent with a cane prior to this. Currently, she is set up for eating and grooming, mod assist for bathing, dependent for dressing and toileting. She is right handed. She is max assist for transfers and has difficulty taking any steps. She is mod to max assist with bed mobility. PAST MEDICAL HISTORY: Arthritis, prior right CVA with left hemiparesis, GERD, hypertension, hypothyroidism, chronic back pain. PAST SURGICAL HISTORY: Bilateral hip replacements, back surgery x4, lobectomy for lung cancer, excision of skin cancer, partial amputation of the thumb. She reports having tripped over her cat at home causing her fall. ALLERGIES: SULFA, LOSARTAN, PROCHLORPERAZINE. FAMILY HISTORY: Noncontributory. SOCIAL HISTORY: She is single, lives alone in a single level home. REVIEW OF SYSTEMS: Ten point review of systems significant for arm and hip pain, fall, chronic back pain, chronic left-sided weakness as residual of stroke. MEDICATIONS: Lisinopril 40 mg p.o. each day at bedtime. Plavix 75 mg p.o. every other day. Hydrochlorothiazide 25 mg p.o. daily, amlodipine 10 mg p.o. every day, vitamin B6 of 50 mg p.o. daily, Protonix 40 mg p.o. daily, levothyroxine 50 mcg p.o. daily, Colace 100 mg p.o. b.i.d., Restoril 15 mg p.o. at bedtime. Fish oil 2000 mg p.o. b.i.d. with meals. Vistaril 25 mg p.o. q.i.d., Reglan 10 mg p.o. t.i.d. with meals. Zofran 8 mg p.o. p.r.n. nausea, vomiting. Lortab 10 one tablet p.o. q. 4 hours. p.r.n. moderate pain. PHYSICAL EXAMINATION: GENERAL: Significant for a female appearing her stated age. Alert and oriented, no acute distress. Complaining of left arm and hip pain. VITAL SIGNS: Temperature is 99.5, pulse is 78, respirations 18, blood pressure 127/72, O2 sat 92% on room air. HEENT: Vision, speech, hearing grossly intact. No oral lesion is noted. NECK: Supple without mass. HEART: Regular rhythm. LUNGS: Clear. ABDOMEN: Soft, nontender. Bowel sounds present. EXTREMITIES: No leg edema. No calf tenderness. MUSCULOSKELETAL: The left arm is in sling. The patient has functional range of motion in the right upper limb and right lower limb. Left lower limb is limited by guarding at the left hip. She is right hand dominant. NEUROLOGIC: Sensation is grossly intact to touch. There is mild left hemiparesis with a strength of 4/5 right upper limb. Left shoulder is not tested. The elbow and wrist and hand grossly 3/5, limited by some pain. Strength right lower extremity grossly 4+/5, left lower extremity grossly 3/5, mainly limited by pain. She is reported to be continent of bowel and bladder, but having some urinary frequency. UA is abnormal. Culture pending. IMPRESSION: 1. Ambulatory dysfunction secondary to fall resulting in left humerus fracture managed with sling and left periprosthetic hip fracture managed nonsurgically, weightbearing as tolerated. 2. 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 3. Abnormal urinalysis associated with low grade fever, culture pending. 4. Gastroesophageal reflux disease, on medication. 5. Hypertension complication. 6. Hypothyroidism on replacement. 7. Chronic back pain with history of back surgery x4. 8. History of lung cancer status post lobectomy. 9. Status post partial amputation of the thumb. PLAN: The patient will have a comprehensive program of inpatient rehabilitation with goal of maximizing level of functional independence. 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 She has two cats and two dogs at home. The patient will have PT/OT 90 minutes a day each discipline, five days a week for gait strengthening and conditioning, balance, ADLs, any patient family caregiver training necessary, any adaptive equipment and training necessary. Rehabilitation nursing to assist with bowel, bladder, skin care, medication administration, pain management. services coordinator for discharge planning, community reentry. Speech therapy to do cognitive assessment treat as indicated. We will follow up with social media manager regarding which family/ friend she will have to assist her upon discharge. Followup with the hospitalist service in lieu of Dr. Graf PCP for medical management, follow up on urine culture. ESTIMATED LENGTH OF STAY: 2 weeks. PROGNOSIS: Rehab prognosis appears good for a goal of discharging home with family home health care probably at the supervision level for ADLs and mobility skills due to the sling for the left arm. Perhaps she could be modified independent if she progressed well and has decreased pain. DIET: Regular. CODE STATUS: Full code. Job ID: [id number] DocumentID: [id number] Dictated Date: 01/05/2017 18:58:27 [place] Closer Date: 01/05/2017 20:39:20 Dictated By: REBEKAH GRECO MD MTDD
[2017-01-06] MEDS: HYDROcodone/APAP 10 MG/325 MG (LORTAB) TAB PO PRN ×5 (02:00→21:06)
[2017-01-06 06:53] VITALS: BP 132/76
[2017-01-06] MEDS: METOCLOPRAMIDE 10 MG (REGLAN) TAB PO SCH ×3 (06:57→16:29)
[2017-01-06] MEDS: OMEGA 3 (FISH OIL) 1000 MG CAP PO SCH ×2 (06:57→16:29)
[2017-01-06] MEDS: LEVOTHYROXINE 50 MCG (LEVOTHROID) TAB PO SCH (06:57)
[2017-01-06] MEDS: PANTOPRAZOLE 40 MG (PROTONIX) TAB PO SCH (06:57)
[2017-01-06] MEDS: DOCUSATE SODIUM 100 MG (COLACE) CAP PO SCH ×2 (08:35→21:06)
[2017-01-06] MEDS: amLODIPine 10 MG (NORVASC) TAB PO SCH (08:35)
[2017-01-06] MEDS: PYRIDOXINE (VITAMIN B-6) 50 MG TABLET PO SCH (08:35)
[2017-01-06] MEDS: HYDROCHLOROTHIAZIDE 25 MG (HCTZ) TAB PO SCH (08:35)
[2017-01-06] MEDS: hydrOXYzine (VISTARIL) 25 MG CAP PO SCH ×4 (08:35→21:06)
[2017-01-06] MEDS ORDERED: MILK OF MAGNESIA 400 MG/5 ML 30 ML UDC PO PRN (11:00)
[2017-01-06 17:55] VITALS: BP 128/65
[2017-01-06] MEDS: lisINopril 20 MG (ZESTRIL) TAB PO SCH (21:06)
[2017-01-06] MEDS: LACTULOSE SYRUP 10GM/15ML (ENULOSE) 30ML UDC PO SCH (21:07)
[2017-01-06] MEDS: TEMAZEPAM 15 MG (RESTORIL) CAP PO SCH (21:07)
[2017-01-07] MEDS: HYDROcodone/APAP 10 MG/325 MG (LORTAB) TAB PO PRN ×4 (03:52→18:05)
[2017-01-07 05:58] VITALS: BP 138/75
[2017-01-07] MEDS: PANTOPRAZOLE 40 MG (PROTONIX) TAB PO SCH (05:59)
[2017-01-07] MEDS: OMEGA 3 (FISH OIL) 1000 MG CAP PO SCH ×2 (06:00→17:27)
[2017-01-07] MEDS: LEVOTHYROXINE 50 MCG (LEVOTHROID) TAB PO SCH (06:00)
[2017-01-07] MEDS: METOCLOPRAMIDE 10 MG (REGLAN) TAB PO SCH ×3 (06:00→17:28)
[2017-01-07] MEDS: PYRIDOXINE (VITAMIN B-6) 50 MG TABLET PO SCH (08:24)
[2017-01-07] MEDS: DOCUSATE SODIUM 100 MG (COLACE) CAP PO SCH ×2 (08:24→20:11)
[2017-01-07] MEDS: HYDROCHLOROTHIAZIDE 25 MG (HCTZ) TAB PO SCH (08:24)
[2017-01-07] MEDS: hydrOXYzine (VISTARIL) 25 MG CAP PO SCH ×4 (08:24→20:11)
[2017-01-07] MEDS: CLOPIDOGREL 75 MG (PLAVIX) TABLET PO SCH (08:24)
[2017-01-07] MEDS: amLODIPine 10 MG (NORVASC) TAB PO SCH (08:25)
[2017-01-07] MEDS: LACTULOSE SYRUP 10GM/15ML (ENULOSE) 30ML UDC PO SCH ×2 (08:26→20:13)
[2017-01-07 08:58] VITALS: BP 121/71
[2017-01-07 11:05] VITALS: BP 86/58
[2017-01-07 11:20] VITALS: BP 93/61
[2017-01-07 11:27] VITALS: BP 101/67
--- NOTE | 2017-01-07 11:33 | Occupational Ther Daily Note ---
OT Current Status-Daily Note Subjective Pt in bed at beginning of tx. Agreeable to therapy. C/o pain in hip but did not rate, nurse notified. Appearance Alert, cooperative. Mental Status/Objective Functional [place] Measure 0=Not Assessed/NA 4=Minimal Assistance 1=Total Assistance 5=Supervision or Setup 2=Maximal Assistance 6=Modified [place] 3=Moderate Assistance 7=Complete [place] ADL-Treatment Pt transferred supine to sit with min assist. Pt sat EOB with SBA to sponge bathe. Pt transferred to BS with min assist and CHW Functional [place] Measure 0=Not Assessed/NA 4=Minimal Assistance 1=Total Assistance 5=Supervision or Setup 2=Maximal Assistance 6=Modified [place] 3=Moderate Assistance 7=Complete IndependenceIRFPAI Quality Coding Scale 6 Independent with activity with or without an assistive device 5 Patient requires set up or clean up by helper. Patient completes activity by themselves 4 Supervision or touching assist (CGA). [place] provide cues , steadying assist 3 The helper provides less than half the effort to complete the activity 2 The helper provides more than half the effort to complete the activity 1 Dependent. The helper does all the effort to complete an activity 7 Patient refused to complete or attempt activity 9 The patient did not perform the activity before the current illness or injury 88 Not attempted due to Medical conditions or safety concerns Grooming (FIM): 5 (Pt able to brush hair and teeth with setup. ) Bathing (FIM): 3 (Pt able to sponge bathe 6 parts while seated EOB, needing assist with both lower legs, part of R arm, frida area, and bottom. ) Upper Body Dressing (QC): 3 (Pt able to doff and don pullover shirt (60% each) . Pt educ mod technique) Toileting (FIM): 1 (Pt needed assistance with hygiene and managing clothing. Able to stand with min A. CHW) Toilet/Commode Transfer (FIM): 4 (Pt transferred to BS with CHW and min assist. CHW, BS. ) Pt transferred from BS to W/C with min assist and CHW. Pt attempts to use L UE during transfers. Care transferred to PT. Education OT Patient Education: Modified ADL techniques, Reviewed precautions, Transfer techniques Teaching Recipient: Patient Teaching Methods: Demonstration, Discussion Response to Teaching: Verbalize Understanding, Return Demonstration OT Short Term Goals Short Term Goals Time Frame: Jan 11, 2017 Bathing(FIM): 4 Upper Body Dressing(FIM): 3 Lower Body Dressing(FIM): 3 Toileting(FIM): 3 Toilet/Commode Transfer(FIM): 4 Additional Short Term Goals: 2-Verbalize Understanding, 3-ImproveStrength/Tacho 1=Demonstrate adherence to instructed precautions during ADL tasks. 2=Patient will verbalize/demonstrate understanding of assistive devices/ modifications for ADL. 3=Patient will improve strength/tolerance for activity to enable patient to perform ADL's. OT Research Chef Goals Research Chef Goals Time Frame: Jan 25, 2017 Eating (FIM): 6 Eating (QC): 6 Groomin Oral Hygiene (QC): 6 Bathing(FIM): 5 Shower/Bathe Self (QC): 5 Upper Body Dressing(FIM): 5 Upper Body Dressing (QC): 5 Lower Body Dressing(FIM): 5 Lower Body Dressing (QC): 5 On/Off Footwear (QC): 5 Toileting(FIM): 6 Toileting Hygiene (QC): 5 Toilet/Commode Transfer(FIM): 5 Toilet/Commode Transfer (QC): 5 Shower Transfer(FIM): 5 Additional Goals: 2-Verbalize Understanding, 3-ImproveStrength/Tacho 1=Demonstrate adherence to instructed precautions during ADL tasks. 2=Patient will verbalize/demonstrate understanding of assistive devices/ modifications for ADL. 3=Patient will improve strength/tolerance for activity to enable patient to perform ADL's. OT Education/Plan Problem List/Assessment Pt would benefit from skilled OT to increase her independence in basic self care to allow her to safely return to her home and to decrease caregiver burden. Discharge Recommendations Plan/Recommendations: Continue POC Treatment Plan/Plan of Care Patient would benefit from OT for education, treatment and training to promote independence in ADL's, mobility, safety and/or upper extremity function for ADL' s. Plan of Care: ADL Retraining, Functional Mobility, Group Exercise/Act as Ind ( education, exercise, funct activity, activ tolerance, ), UE Funct Exercise/Act, UE Neuromus Re-Ed/Coord Treatment Duration: Jan 25, 2017 Frequency: At least 5 of 7 days/Wk (IRF) Estimated Hrs Per Day: 1.5 hours per day Agreement: Yes Rehab Potential: Good Time/GCodes Start Time: 10:18 Stop Time: 11:05 Total Time Billed (hr/min): 47 Billed Treatment Time visit, 47 minutes ADL YAMILET JERONIMO OT Jan 07, 2017 11:33
--- NOTE | 2017-01-07 12:07 | Physical Therapy Daily Note ---
PT Daily Note-Current Subjective Pt. on BSC upon entering room. Just had large BM after apparently no BM for a week. Upon stance just after BM pt. became diaphoretic and stated she was very dizzy/light headed and nauseous. Pt. was sat down in w/c, nursing was advised and BP and vitals were begun Pain Numeric Pain Scale: 3 Location: Left Location Body Site: Hip Pain Description: Ache Appearance pale, eyes closed Mental Status Patient Orientation: Normal For Age Attachments: Silva Catheter, Other-See Comments (LUE sling) Transfers Functional [place] Measure 0=Not Assessed/NA 4=Minimal Assistance 1=Total Assistance 5=Supervision or Setup 2=Maximal Assistance 6=Modified [place] 3=Moderate Assistance 7=Complete IndependenceIRFPAI Quality Coding Scale 6 Independent with activity with or without an assistive device 5 Patient requires set up or clean up by helper. Patient completes activity by themselves 4 Supervision or touching assist (CGA). [place] provide cues , steadying assist 3 The helper provides less than half the effort to complete the activity 2 The helper provides more than half the effort to complete the activity 1 Dependent. The helper does all the effort to complete an activity 7 Patient refused to complete or attempt activity 9 The patient did not perform the activity before the current illness or injury 88 Not attempted due to Medical conditions or safety concerns Transfers (B, C, W/C) (FIM): 3 Scootin Rollin Roll Left to Right (QC): 5 Supine to/from Sit: 4 Sit to/from Stand: 3 Sit to Lying (QC): 4 Sit to Stand (QC): 3 Chair/Ska-ug-Ogqgk Xfer(QC): 3 Weight Bearing Right Lower Extremity: Right Full Weight Bearing Left Lower Extremity: Left Weight Bearing/Tolerated with standby assistance Left UE in a sling Gait Training Does the Patient Walk?: Yes Gait (FIM): 1 Distance (FIM): 1=up to 49 ft (5ftx2) Gait Level of Assist: 3 Gait Persons Needed: 1 Gait Assistive Device: Walker Center-Hold Exercises Supine Ex: Ankle pumps, Quad Set, Rolling, Glut sets, Heel Slides, Short Arc Quads, Scooting, Hip abd/add Supine Reps: 15 Assessment Current Status: Fair Progress BP in sitting [id number]/58, HR94, O2 sats 92%, pt. was layed down in bed, nauseous , given cool cloht and emesis basin. BPs up to 107/68 , HR 90 and O2 sats 92%. Pt. feeling better , no c/o nausea at end of Rx, very sleepy and requests a nap PT Short Term Goals Short Term Goals Time Frame: Jan 11, 2017 Gait (FIM): 2 Distance (FIM): 7=689-45 ft PT Fdc Goals Mechanical Maintenance Foreman Goals PT Fdc Goals Time Frame: Jan 25, 2017 Transfers (B,C,W/C) (FIM): 6 Sit to Lying (QC): 6 Lying-Sitting on Side/Bed(QC): 6 Sit to Stand (QC): 6 Rollin Roll Left to Right (QC): 6 Chair/Xrc-vr-Pebul Xfer(QC): 6 Car Transfer (QC): 6 Does the Patient Walk: Yes Gait (FIM): 6 Gait distance (FIM): 3=150 ft Walk 10 feet (QC): 6 Walk 10ft-Uneven Surface(QC): 6 Walk 50ft with 2 Turns (QC): 6 Walk 150 ft (QC): 6 Gait Assistive Device: Cane Small Base Quad (or 1 handed walker) Does the Pt use WC or Scooter?: No Stairs (FIM): 2 # of Steps: 4 1 Step (curb) (QC): 5 4 Steps (QC): 5 12 Steps (QC): 0 (dash) Picking up an Object (QC): 5 PT Plan Treatment/Plan Treatment Plan: Continue Plan of Care Treatment Plan: Bed Mobility, Education, Functional Activity Tacho, Functional Strength, Group Therapy, Gait, Safety, Therapeutic Exercise, Transfers Treatment Duration: Jan 25, 2017 Frequency: At least 5 of 7 days/Wk (IRF) Estimated Hrs Per Day: 1.5 hours per day Patient and/or Family Agrees t: Yes Safety Risks/Education Patient Education: Gait Training, Transfer Techniques Teaching Recipient: Patient Teaching Methods: Demonstration, Discussion Response to Teaching: Verbalize Understanding, Return Demonstration, Reinforcement Needed Time/GCodes Time In: 1105 Time Out: 1205 Total Billed Treatment Time: 60 Total Billed Treatment 1,EX30m,FA30m G Codes Necessary: No AYLA MENDEZ PATHOLOGY TECHNOLOGIST Jan 07, 2017 12:07
--- NOTE | 2017-01-07 14:39 | Physical Therapy Daily Note ---
PT Daily Note-Current Subjective Pt. states she does not feel as nauseated but has no appetite (meal in front of her on tray). States she is still so very sleepy and just wants to nap. Agrees to exercise in bed and TRFs Pain Numeric Pain Scale: 0-No Pain Mental Status Patient Orientation: Normal For Age Attachments: Silva Catheter Transfers Functional [place] Measure 0=Not Assessed/NA 4=Minimal Assistance 1=Total Assistance 5=Supervision or Setup 2=Maximal Assistance 6=Modified [place] 3=Moderate Assistance 7=Complete IndependenceIRFPAI Quality Coding Scale 6 Independent with activity with or without an assistive device 5 Patient requires set up or clean up by helper. Patient completes activity by themselves 4 Supervision or touching assist (CGA). [place] provide cues , steadying assist 3 The helper provides less than half the effort to complete the activity 2 The helper provides more than half the effort to complete the activity 1 Dependent. The helper does all the effort to complete an activity 7 Patient refused to complete or attempt activity 9 The patient did not perform the activity before the current illness or injury 88 Not attempted due to Medical conditions or safety concerns sup to sit mod to min assist Weight Bearing Right Lower Extremity: Right Full Weight Bearing Left Lower Extremity: Left Weight Bearing/Tolerated with standby assistance Left UE in a sling Exercises Supine Ex: Ankle pumps, Quad Set, Rolling, Glut sets, Heel Slides, Scooting, Hip abd/add Supine Reps: 15 Assessment Current Status: Good Progress continues limited by lethargy PT Short Term Goals Short Term Goals Time Frame: Jan 11, 2017 Gait (FIM): 2 Distance (FIM): 9=927-00 ft PT Hand Crown Pouncer Goals Hand Crown Pouncer Goals PT Jail Goals Time Frame: Jan 25, 2017 Transfers (B,C,W/C) (FIM): 6 Sit to Lying (QC): 6 Lying-Sitting on Side/Bed(QC): 6 Sit to Stand (QC): 6 Rollin Roll Left to Right (QC): 6 Chair/Ovw-yl-Olwbj Xfer(QC): 6 Car Transfer (QC): 6 Does the Patient Walk: Yes Gait (FIM): 6 Gait distance (FIM): 3=150 ft Walk 10 feet (QC): 6 Walk 10ft-Uneven Surface(QC): 6 Walk 50ft with 2 Turns (QC): 6 Walk 150 ft (QC): 6 Gait Assistive Device: Cane Small Base Quad (or 1 handed walker) Does the Pt use WC or Scooter?: No Stairs (FIM): 2 # of Steps: 4 1 Step (curb) (QC): 5 4 Steps (QC): 5 12 Steps (QC): 0 (dash) Picking up an Object (QC): 5 PT Plan Treatment/Plan Treatment Plan: Continue Plan of Care Treatment Plan: Bed Mobility, Education, Functional Activity Tacho, Functional Strength, Group Therapy, Gait, Safety, Therapeutic Exercise, Transfers Treatment Duration: Jan 25, 2017 Frequency: At least 5 of 7 days/Wk (IRF) Estimated Hrs Per Day: 1.5 hours per day Patient and/or Family Agrees t: Yes Time/GCodes Time In: 1405 Time Out: 1435 Total Billed Treatment Time: 30 Total Billed Treatment 1,FA15m,EX15m G Codes Necessary: No AYLA MENDEZ SHIP LABORER Jan 07, 2017 14:39
--- NOTE | 2017-01-07 15:30 | Occupational Ther Daily Note ---
OT Current Status-Daily Note Subjective Pt in bed at beginning of tx. Stated she was tired because she had taken Zofran for her upset stomach. Agreeable to therapy if she could stay in bed. No mention of pain. Appearance Tired, mostly cooperative. Mental Status/Objective Functional [place] Measure 0=Not Assessed/NA 4=Minimal Assistance 1=Total Assistance 5=Supervision or Setup 2=Maximal Assistance 6=Modified [place] 3=Moderate Assistance 7=Complete [place] ADL-Treatment Functional [place] Measure 0=Not Assessed/NA 4=Minimal Assistance 1=Total Assistance 5=Supervision or Setup 2=Maximal Assistance 6=Modified [place] 3=Moderate Assistance 7=Complete IndependenceIRFPAI Quality Coding Scale 6 Independent with activity with or without an assistive device 5 Patient requires set up or clean up by helper. Patient completes activity by themselves 4 Supervision or touching assist (CGA). [employer] provide cues , steadying assist 3 The helper provides less than half the effort to complete the activity 2 The helper provides more than half the effort to complete the activity 1 Dependent. The helper does all the effort to complete an activity 7 Patient refused to complete or attempt activity 9 The patient did not perform the activity before the current illness or injury 88 Not attempted due to Medical conditions or safety concerns Other Treatment Pt shown 11 upper body exercises for the shoulder, elbow, forearm, wrist, and hand. Pt able to return demonstration on the RUE by completing 2 sets of 10 reps each exercise while wearing a 1 # weight. Pt very sleepy and needed verbal cues to return to task, taking longer than normal to finish exercises. Pt also given a red foam block to exercise hand, with pt educ on two different exercises , with return demo 5 reps each. Pt in bed with all needs met and 4 rails up at end of tx. Education OT Patient Education: Correct positioning, Exercise program, Purpose of tx/ functional activities, Safety issues Teaching Recipient: Patient Teaching Methods: Demonstration, Discussion Response to Teaching: Verbalize Understanding, Return Demonstration OT Short Term Goals Short Term Goals Time Frame: Jan 11, 2017 Bathing(FIM): 4 Upper Body Dressing(FIM): 3 Lower Body Dressing(FIM): 3 Toileting(FIM): 3 Toilet/Commode Transfer(FIM): 4 Additional Short Term Goals: 2-Verbalize Understanding, 3-ImproveStrength/Tacho 1=Demonstrate adherence to instructed precautions during ADL tasks. 2=Patient will verbalize/demonstrate understanding of assistive devices/ modifications for ADL. 3=Patient will improve strength/tolerance for activity to enable patient to perform ADL's. OT Residential Goals Mine Safety Director Goals Time Frame: Jan 25, 2017 Eating (FIM): 6 Eating (QC): 6 Groomin Oral Hygiene (QC): 6 Bathing(FIM): 5 Shower/Bathe Self (QC): 5 Upper Body Dressing(FIM): 5 Upper Body Dressing (QC): 5 Lower Body Dressing(FIM): 5 Lower Body Dressing (QC): 5 On/Off Footwear (QC): 5 Toileting(FIM): 6 Toileting Hygiene (QC): 5 Toilet/Commode Transfer(FIM): 5 Toilet/Commode Transfer (QC): 5 Shower Transfer(FIM): 5 Additional Goals: 2-Verbalize Understanding, 3-ImproveStrength/Tacho 1=Demonstrate adherence to instructed precautions during ADL tasks. 2=Patient will verbalize/demonstrate understanding of assistive devices/ modifications for ADL. 3=Patient will improve strength/tolerance for activity to enable patient to perform ADL's. OT Education/Plan Problem List/Assessment Pt would benefit from skilled OT to increase her independence in basic self care to allow her to safely return to her home and to decrease caregiver burden. Discharge Recommendations Plan/Recommendations: Continue POC Treatment Plan/Plan of Care Patient would benefit from OT for education, treatment and training to promote independence in ADL's, mobility, safety and/or upper extremity function for ADL' s. Plan of Care: ADL Retraining, Functional Mobility, Group Exercise/Act as Ind ( education, exercise, funct activity, activ tolerance, ), UE Funct Exercise/Act, UE Neuromus Re-Ed/Coord Treatment Duration: Jan 25, 2017 Frequency: At least 5 of 7 days/Wk (IRF) Estimated Hrs Per Day: 1.5 hours per day Agreement: Yes Rehab Potential: Good Time/GCodes Start Time: 13:15 Stop Time: 14:00 Total Time Billed (hr/min): 45 Billed Treatment Time visit, exercise 45 minutes YAMILET JERONIMO OT Jan 07, 2017 15:30
--- NOTE | 2017-01-07 16:18 | Progress Note-Hospitalist ---
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 She suffered a fall at home after tripping over one of her cats and dogs. She suffered a fracture of the left proximal humerus and a distal periprosthetic fracture of her left total knee replacement. She lives alone in this left her in a relatively non-ambulatory state as she also has had years of problems and 4 back surgeries. She now has a Silva catheter in place as she was requiring repeated catheterization for urinary retention. She is getting somewhat frustrated by her progress or lack thereof at this point. Physical exam: She appears her stated age. She is alert and oriented. Lungs are clear to auscultation. CV is regular without murmur. The left arm is in a sling. He Silva is in place. Impression: 1.proximal humeral fracture left. 2.distal periprosthetic fracture left femur. 3.COPD. 4.previous back surgeries. 5.urinary retention. Plan: Replace ortho consult with Dr. Bae. Consider urology consultation for retention. Note: The patient suffered what would appear to have been a vasovagal reaction immediately following a large bowel movement this morning. PABLO DIETZ MD Jan 07, 2017 16:18
[2017-01-07 18:26] VITALS: BP 122/69
--- NOTE | 2017-01-07 19:56 | PM & R (SOAP) Progress Note ---
Subjective Time Seen by Provider: 19:50 Subjective/Events-last exam Patient was seen in her room this evening,Case discussed with RN Patient had apparent Vasovagal reaction following a BM.Patient mod asist for transfers left arm in sling Patient with urinary retention -Horn catheter to DD Review of Systems Genitourinary: Retention Musculoskeletal: arm pain, leg pain Objective Exam Last Set of Vital Signs Vital Signs Date Time Temp Pulse Resp B/P (MAP) Pulse Ox O2 Delivery O2 Flow Rate FiO2 01/07/17 18:26 97.0 77 18 122/69 92 Room Air Capillary Refill : Less Than 3 Seconds I&O Intake and Output 01/08/17 00:00 Intake Total 760 ml Output Total 1250 ml Balance -490 ml Intake Oral 760 ml Output Urine Total 1250 ml # Bowel Movements 1 General: Alert, Oriented X3, Cooperative, No Acute Distress HEENT: Atraumatic, PERRLA, EOMI, Mucous Memb Moist/[place] Neck: Supple, No JVD Lungs: Clear to Auscultation Heart: Regular Rate Abdomen: Normal Bowel Sounds, Soft, No Tenderness Extremities: No Edema, Other (left arm in sling) Neuro: Other (left HP) Other physical findings Indwelling horn catheter to DD Results Lab Laboratory Tests 01/05/17 04:28: Urine Color YELLOW, Urine Clarity CLEAR, Urine pH 6, Urine Specific [place] 1.010L, Urine Protein NEGATIVE, Urine Glucose (UA) NEGATIVE, Urine Ketones NEGATIVE, Urine Nitrite NEGATIVE, Urine Bilirubin NEGATIVE, Urine Urobilinogen NORMAL, Urine Leukocyte Esterase 1+H, Urine RBC (Auto) NEGATIVE, Urine RBC NONE , Urine WBC 2-5, Urine Crystals NONE, Urine Bacteria TRACE, Urine Casts NONE, Urine Mucus NEGATIVE, Urine Culture Indicated YES Microbiology 01/05/17 Urine Culture - Final, Complete NO GROWTH Assessment/Plan Assessment fall with resulting left humerus frx and left periprosthetic hip frx managed with sling for LUE and WBAT for 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
--- NOTE | 2017-01-07 20:04 | Individualized Plan of Care ---
Individualized Plan of Care Rehab Nursing IPOC Order Admission Date Jan 04, 2017 at 10:14 Current Orders Orders Admission-Acute Rehab Unit (01/04/17 08:46) Pt Evaluate/Treat Request (01/04/17 08:46) Request Ot Evaluate & Treat (01/04/17 08:46) Request For Cognitive Services (01/04/17 08:46) Admission Arrival Bed Request (01/04/17 09:00) General/Regular (01/04/17 Lunch) Hydrocodone/Apap 10/325 Tablet (Lortab 1 (01/04/17 09:45) Morphine Injection (Morphine Injection (01/04/17 09:45) Patient Visit (01/04/17 ) Pt Eval Moderate Complexity (01/04/17 ) Functional Activities, Ea 15 (01/04/17 ) Code/Resuscitation (01/04/17 10:52) Activity (01/04/17 10:52) Ambulate TID (01/04/17 10:52) Intake & Output 06,14,22 (01/04/17 10:52) Sequential Compression Device 08,20 (01/04/17 10:52) Straight Cath (Urinary) (01/04/17 10:52) Vital Signs: Every 4 Hours (01/04/17 10:52) Weight Bearing Status (01/04/17 10:52) Clopidogrel Tablet (Plavix Tablet) (01/05/17 09:00) Docusate Sodium Capsule (Colace Capsule) (01/04/17 21:00) Hydrochlorothiazide Cap/Tablet (Hctz Cap (01/05/17 09:00) Levothyroxine Tablet (Synthroid Tablet) (01/05/17 06:30) Lisinopril Tablet (Zestril Tablet) (01/05/17 09:00) Metoclopramide Tablet (Reglan Tablet) (01/04/17 12:00) Ondansetron Injection (Zofran Injectio (01/04/17 11:00) Ondansetron Oral Dissolve Tab (Zofran O (01/04/17 11:00) Pantoprazole Tablet (Protonix Tablet) (01/05/17 07:00) Sodium Chloride Flush (Catheter Flush Sy (01/04/17 11:00) Temazepam Capsule (Restoril Capsule) (01/04/17 21:00) Amlodipine Tablet (Norvasc Tablet) (01/05/17 09:00) Hydroxyzine Oral (Vistaril Capsule) (01/04/17 13:00) Consult Physician (01/04/17 10:52) Rt Request For Service (01/04/17 10:52) Nursing Communication (Patient (01/04/17 10:52) Isolation Central Supply Req (01/04/17 10:52) Ua Culture If Indicated (01/05/17 04:28) [place] 3 Capsule (Fish Oil Capsule) (01/04/17 17:00) Pyridoxine Tablet (Vitamin B-6 Tablet) (01/05/17 09:00) Non-Formulary Medication (Non-Formulary (01/04/17 21:00) Non-Formulary Medication (Non-Formulary (01/05/17 09:00) Patient Visit (01/04/17 ) Speech Sound Lang Comp (01/04/17 ) Patient Visit (01/04/17 ) Exercise Therap, Ea 15 Min (01/04/17 ) Catheter(Urinary) To Dependent (01/04/17 23:53) Catheter(Urinary) Insert & Ass 08,16 (01/04/17 23:53) Urine Culture (01/05/17 04:28) Patient Visit (01/05/17 ) Exercise Therap, Ea 15 Min (01/05/17 ) Functional Activities, Ea 15 (01/05/17 ) Lisinopril Tablet (Zestril Tablet) (01/05/17 21:00) Magnesium Hydroxide Oral Susp (Mom Oral (01/06/17 11:00) Lactulose Oral Solution (Enulose Oral So (01/06/17 21:00) Patient Visit (01/07/17 ) Exercise Therap, Ea 15 Min (01/07/17 ) Functional Activities, Ea 15 (01/07/17 ) Consult Physician (01/07/17 15:57) Nursing Communication (Patient (01/07/17 17:18) Other Nursing Orders: Horn catheter care monitor for any further constipation pain management Intensity of Therapy to be met Patient to be seen: Min.3h per day/5 of 7d PT IPOC Problem List: Activity Tolerance, Functional Strength, Safety, Balance, Gait, Transfer, Bed Mobility, ROM Treatment Plan: Continue Plan of Care Bed Mobility, Education, Functional Activity Tacho, Functional Strength, Group Therapy, Gait, Safety, Therapeutic Exercise, Transfers Treatment Duration: Jan 25, 2017 Frequency: At least 5 of 7 days/Wk (IRF) Estimated Hrs Per Day: 1.5 hours per day OT IPOC Problems: Decreased Activ Tolerance, Decreased UE Strength, Dependent Transfers , Impaired Self-Care Skills, Restricted Funct UE ROM OT Treatment, Training and Edu: Yes OT Problems Pt would benefit from skilled OT to increase her independence in basic self care to allow her to safely return to her home and to decrease caregiver burden. Plan of Care: ADL Retraining, Functional Mobility, Group Exercise/Act as Ind ( education, exercise, funct activity, activ tolerance, ), UE Funct Exercise/Act, UE Neuromus Re-Ed/Coord Treatment Duration: Jan 25, 2017 Frequency: At least 5 of 7 days/Wk (IRF) Estimated Hrs Per Day: 1.[address] IPOC Speech Therapy Treatment Plan: Discontinue ST Treatment Duration: Jan 07, 2017 Frequency: Modified Program (IRF) (Evaluation, only.) Estimated Hrs Per Day: Other (Evaluation, only.) Tobacco Scrap Sifter/Case Mgmt Tobacco Scrap Sifter/Case Managemen: Discharge Planning, Patient/Family Counseling Physician IPOC Medical Issues being managed closely and that require the 24 hour availability of a physician: HTN Pain management HTN constipation urinary retention Medical Issues: Bowel/Bladder Function, DVT Prophylaxis, Falls Precautions, Infection Protection, Pain Management, Weight Bearing Precautions, Other (List) (as per above) Brief Synthesis of Preadmission Screen, Post-Admission Evaluation, and Therapy Evaluations: 76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 who tripped over her pet and sustained a left humer frx managed with a sling and a left periprosthetic hip frx managed nonsurgically with WBAT referred to IRU for ongoing therapies and care has urinary retention being managed with indwelling horn catheter, had a low grade fever which has resolved with urine culture showing no growth.PMH significant for HTN and chronic Back pain and rt cva with residual left HP Medical Prognosis: Good Anticipated Length of Stay: 2 weeks Rehab Goals Maximize level of functional [place] prior to discharge taking into consideration her left upper limb being in a sling and pain control issues and prior stroke and other comorbidities SW to followup re family/community support available to patient. Anticipated discharge destinat: Home with [facility] and family/community support REBEKAH GRECO MD Jan 07, 2017 20:04
[2017-01-07] MEDS: TEMAZEPAM 15 MG (RESTORIL) CAP PO SCH (20:11)
[2017-01-07] MEDS: lisINopril 20 MG (ZESTRIL) TAB PO SCH (20:12)
[2017-01-08] MEDS: HYDROcodone/APAP 10 MG/325 MG (LORTAB) TAB PO PRN ×5 (03:18→20:13)
[2017-01-08 05:05] VITALS: BP 130/72
[2017-01-08] MEDS: PANTOPRAZOLE 40 MG (PROTONIX) TAB PO SCH (06:06)
[2017-01-08] MEDS: LEVOTHYROXINE 50 MCG (LEVOTHROID) TAB PO SCH (06:06)
[2017-01-08] MEDS: OMEGA 3 (FISH OIL) 1000 MG CAP PO SCH ×2 (06:06→16:10)
[2017-01-08] MEDS: METOCLOPRAMIDE 10 MG (REGLAN) TAB PO SCH ×3 (06:06→16:10)
[2017-01-08] MEDS: HYDROCHLOROTHIAZIDE 25 MG (HCTZ) TAB PO SCH (07:56)
[2017-01-08] MEDS: PYRIDOXINE (VITAMIN B-6) 50 MG TABLET PO SCH (07:57)
[2017-01-08] MEDS: DOCUSATE SODIUM 100 MG (COLACE) CAP PO SCH ×2 (07:57→20:13)
[2017-01-08] MEDS: amLODIPine 10 MG (NORVASC) TAB PO SCH (07:57)
[2017-01-08] MEDS: LACTULOSE SYRUP 10GM/15ML (ENULOSE) 30ML UDC PO SCH ×2 (07:57→20:13)
[2017-01-08] MEDS: hydrOXYzine (VISTARIL) 25 MG CAP PO SCH ×4 (07:57→20:13)
--- NOTE | 2017-01-08 08:19 | PM & R (SOAP) Progress Note ---
Subjective Time Seen by Provider: 08:00 Subjective/Events-last exam Patient was seen in her room this AM Patient Min to mod assist for transfers DR Bae consulted re left humerus frx and left periprosthetic hip frx Patient indicates that DR Bae has done both THRS for her and is familiar with her case. Review of Systems Musculoskeletal: shoulder pain, leg pain Objective Exam Last Set of Vital Signs Vital Signs Date Time Temp Pulse Resp B/P (MAP) Pulse Ox O2 Delivery O2 Flow Rate FiO2 01/08/17 05:05 98.9 81 18 130/72 92 Room Air Capillary Refill : Less Than 3 Seconds I&O Intake and Output 01/09/17 00:00 Intake Total 100 ml Output Total 400 ml Balance -300 ml Intake Oral 100 ml Output Urine Total 400 ml General: Alert, Oriented X3, Cooperative, No Acute Distress HEENT: Atraumatic, PERRLA, EOMI, Mucous Memb Moist/[place] Neck: Supple, No JVD Lungs: Clear to Auscultation Heart: Regular Rate Abdomen: Normal Bowel Sounds, Soft, No Tenderness Extremities: No Edema, Other (left arm in sling) Neuro: Other (left HP) Results Lab Microbiology 01/05/17 Urine Culture - Final, Complete NO GROWTH Assessment/Plan Assessment fall with resulting left humerus frx and left periprosthetic hip frx managed with sling for LUE and WBAT for 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
--- NOTE | 2017-01-08 11:21 | Occupational Ther Daily Note ---
OT Current Status-Daily Note Subjective Pt in bed at beginning of tx. Agreeable to therapy. Mentioned pain in hip but did not rate, nurse notified. Appearance Alert, cooperative. Mental Status/Objective Functional [place] Measure 0=Not Assessed/NA 4=Minimal Assistance 1=Total Assistance 5=Supervision or Setup 2=Maximal Assistance 6=Modified [place] 3=Moderate Assistance 7=Complete [place] ADL-Treatment Functional [place] Measure 0=Not Assessed/NA 4=Minimal Assistance 1=Total Assistance 5=Supervision or Setup 2=Maximal Assistance 6=Modified [place] 3=Moderate Assistance 7=Complete IndependenceIRFPAI Quality Coding Scale 6 Independent with activity with or without an assistive device 5 Patient requires set up or clean up by helper. Patient completes activity by themselves 4 Supervision or touching assist (CGA). [place] provide cues , steadying assist 3 The helper provides less than half the effort to complete the activity 2 The helper provides more than half the effort to complete the activity 1 Dependent. The helper does all the effort to complete an activity 7 Patient refused to complete or attempt activity 9 The patient did not perform the activity before the current illness or injury 88 Not attempted due to Medical conditions or safety concerns Grooming (FIM): 5 (Brushed teeth and combed hair with setup. Washed hands and face while sponge bathing at EOB. ) Bathing (FIM): 2 (Sponge bath at EOB with setup. Pt washed upper legs, face, R arm; needed assist to wash bottom, and both lower legs, chose to not wash rest of upper body.) Lower Body Dressing (FIM): 1 (Pt attempted to don socks but couldn't reach and needed it done for her. Will educate on sock aid. ) Pt transferred supine to EOB, needing mod assist to come to sitting position and move L leg and R arm. Pt did sponge bath and grooming at EOB. Pt transferred from EOB to W/C with min assist to stand and CGA and CHW to pivot to W/C, bed elevated. Pt would like to have shoulder immobilized so she isn't tempted to use it. Activities take longer than normal due to pt's pain when moving. Pt care transferred to PT. Education OT Patient Education: Purpose of tx/functional activities, Transfer techniques , Use of adapted equipment Teaching Recipient: Patient Teaching Methods: Demonstration, Discussion Response to Teaching: Verbalize Understanding, Return Demonstration, Reinforcement Needed OT Short Term Goals Short Term Goals Time Frame: Jan 11, 2017 Bathing(FIM): 4 Upper Body Dressing(FIM): 3 Lower Body Dressing(FIM): 3 Toileting(FIM): 3 Toilet/Commode Transfer(FIM): 4 Additional Short Term Goals: 2-Verbalize Understanding, 3-ImproveStrength/Tacho 1=Demonstrate adherence to instructed precautions during ADL tasks. 2=Patient will verbalize/demonstrate understanding of assistive devices/ modifications for ADL. 3=Patient will improve strength/tolerance for activity to enable patient to perform ADL's. OT Detention Goals [employer]ail Charger Operator Goals Time Frame: Jan 25, 2017 Eating (FIM): 6 Eating (QC): 6 Groomin Oral Hygiene (QC): 6 Bathing(FIM): 5 Shower/Bathe Self (QC): 5 Upper Body Dressing(FIM): 5 Upper Body Dressing (QC): 5 Lower Body Dressing(FIM): 5 Lower Body Dressing (QC): 5 On/Off Footwear (QC): 5 Toileting(FIM): 6 Toileting Hygiene (QC): 5 Toilet/Commode Transfer(FIM): 5 Toilet/Commode Transfer (QC): 5 Shower Transfer(FIM): 5 Additional Goals: 2-Verbalize Understanding, 3-ImproveStrength/Tacho 1=Demonstrate adherence to instructed precautions during ADL tasks. 2=Patient will verbalize/demonstrate understanding of assistive devices/ modifications for ADL. 3=Patient will improve strength/tolerance for activity to enable patient to perform ADL's. OT Education/Plan Problem List/Assessment Pt would benefit from skilled OT to increase her independence in basic self care to allow her to safely return to her home and to decrease caregiver burden. Discharge Recommendations Plan/Recommendations: Continue POC Treatment Plan/Plan of Care Patient would benefit from OT for education, treatment and training to promote independence in ADL's, mobility, safety and/or upper extremity function for ADL' s. Plan of Care: ADL Retraining, Functional Mobility, Group Exercise/Act as Ind ( education, exercise, funct activity, activ tolerance, ), UE Funct Exercise/Act, UE Neuromus Re-Ed/Coord Treatment Duration: Jan 25, 2017 Frequency: At least 5 of 7 days/Wk (IRF) Estimated Hrs Per Day: 1.5 hours per day Agreement: Yes Rehab Potential: Good Time/GCodes Start Time: 10:20 Stop Time: 11:00 Total Time Billed (hr/min): 40 Billed Treatment Time visit, ADL 40 minutes. YAMILET JERONIMO OT Jan 08, 2017 11:21
--- NOTE | 2017-01-08 12:12 | Physical Therapy Daily Note ---
PT Daily Note-Current Subjective Pt is sitting in [facility] after just finishing with OT. Pt agrees to PT despite reporting fatigue. Pain Numeric Pain Scale: 5-Moderate Pain Location: Left Location Body Site: Hip Pain Description: Sharp Mental Status Patient Orientation: Person, Place, Time, Situation Attachments: Silva Catheter Transfers Functional [place] Measure 0=Not Assessed/NA 4=Minimal Assistance 1=Total Assistance 5=Supervision or Setup 2=Maximal Assistance 6=Modified [place] 3=Moderate Assistance 7=Complete IndependenceIRFPAI Quality Coding Scale 6 Independent with activity with or without an assistive device 5 Patient requires set up or clean up by helper. Patient completes activity by themselves 4 Supervision or touching assist (CGA). [place] provide cues , steadying assist 3 The helper provides less than half the effort to complete the activity 2 The helper provides more than half the effort to complete the activity 1 Dependent. The helper does all the effort to complete an activity 7 Patient refused to complete or attempt activity 9 The patient did not perform the activity before the current illness or injury 88 Not attempted due to Medical conditions or safety concerns Weight Bearing Right Lower Extremity: Right Full Weight Bearing Left Lower Extremity: Left Weight Bearing/Tolerated with standby assistance Left UE in a sling Exercises Seated Therapy Exercises: Ankle pumps, Long arc quads, Hip flexion, Kicking activity, Hip abd/add Seated Reps: 20 Treatments Pt & PT discuss what happens at Weekly Saturday Mtg as well as health history. Pt completes Seated Ex in [facility]. Dr Ochoa discusses with pt that he is putting pt on 2 new meds at least for next 48 hrs. Pt also discusses helpful ways to try to stay off sacral wound and bed mobility. Pt has lunch ordered and is resting in [facility] at end of tx with all needs met. Assessment Current Status: Good Progress Pt fatigues and has lack of strength in LE due to surgery. PT Short Term Goals Short Term Goals Time Frame: Jan 11, 2017 Gait (FIM): 2 Distance (FIM): 6=015-39 ft PT Fpc Goals Fpc Goals PT Fpc Goals Time Frame: Jan 25, 2017 Transfers (B,C,W/C) (FIM): 6 Sit to Lying (QC): 6 Lying-Sitting on Side/Bed(QC): 6 Sit to Stand (QC): 6 Rollin Roll Left to Right (QC): 6 Chair/Ent-nv-Bhang Xfer(QC): 6 Car Transfer (QC): 6 Does the Patient Walk: Yes Gait (FIM): 6 Gait distance (FIM): 3=150 ft Walk 10 feet (QC): 6 Walk 10ft-Uneven Surface(QC): 6 Walk 50ft with 2 Turns (QC): 6 Walk 150 ft (QC): 6 Gait Assistive Device: Cane Small Base Quad (or 1 handed walker) Does the Pt use WC or Scooter?: No Stairs (FIM): 2 # of Steps: 4 1 Step (curb) (QC): 5 4 Steps (QC): 5 12 Steps (QC): 0 (dash) Picking up an Object (QC): 5 PT Plan Problem List Problem List: Activity Tolerance, Functional Strength, Safety, Balance, Gait, Transfer Treatment/Plan Treatment Plan: Continue Plan of Care Treatment Plan: Bed Mobility, Education, Functional Activity Tacho, Functional Strength, Group Therapy, Gait, Safety, Therapeutic Exercise, Transfers Treatment Duration: Jan 25, 2017 Frequency: At least 5 of 7 days/Wk (IRF) Estimated Hrs Per Day: 1.5 hours per day Patient and/or Family Agrees t: Yes Safety Risks/Education Patient Education: Gait Training, Transfer Techniques, Correct Positioning, Disease Process, Safety Issues Teaching Recipient: Patient Teaching Methods: Discussion Response to Teaching: Verbalize Understanding Time/GCodes Time In: 1100 Time Out: 1200 Total Billed Treatment Time: 60 Total Billed Treatment 1, EX x2 (30m) & FA x2 (30m) VINNY COSME LASTING ROOM MACHINE OPERATOR Jan 08, 2017 12:12
--- NOTE | 2017-01-08 12:44 | CONSULTATION REPORT ---
DATE OF SERVICE: 01/08/2017 ATTENDING PHYSICIANS: 1. Johnie Meier MD 2. 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 She was found to have trouble urinating, needing help with catheter with retention of up to 1000 mL. A Silva catheter was left indwelling. The patient denies any similar episodes at home. IMPRESSION: Urinary retention, most probably neurogenic in nature. PLAN: Started on Urecholine and Flomax. A trial of voiding in 48 hours and manage accordingly. Job ID: [id number] DocumentID: [id number] Dictated Date: 01/08/2017 11:30:23 Tinter Photograph Date: 01/08/2017 12:24:04 Dictated By: ZAHRA JEFF MD
--- NOTE | 2017-01-08 14:40 | Occupational Ther Daily Note ---
OT Current Status-Daily Note Subjective Pt in bed at beginning of tx. Agreeable to therapy. Mentioned that R shoulder was sore from exercises but stated it "wasn't bad". Appearance Alert, cooperative. Mental Status/Objective Functional [place] Measure 0=Not Assessed/NA 4=Minimal Assistance 1=Total Assistance 5=Supervision or Setup 2=Maximal Assistance 6=Modified [place] 3=Moderate Assistance 7=Complete [place] ADL-Treatment Functional [place] Measure 0=Not Assessed/NA 4=Minimal Assistance 1=Total Assistance 5=Supervision or Setup 2=Maximal Assistance 6=Modified [place] 3=Moderate Assistance 7=Complete IndependenceIRFPAI Quality Coding Scale 6 Independent with activity with or without an assistive device 5 Patient requires set up or clean up by helper. Patient completes activity by themselves 4 Supervision or touching assist (CGA). [place] provide cues , steadying assist 3 The helper provides less than half the effort to complete the activity 2 The helper provides more than half the effort to complete the activity 1 Dependent. The helper does all the effort to complete an activity 7 Patient refused to complete or attempt activity 9 The patient did not perform the activity before the current illness or injury 88 Not attempted due to Medical conditions or safety concerns Other Treatment Pt transferred from supine to EOB with min assist to come to sitting position and to move L leg. Pt needed recovery period at EOB before transferring to W/C. Pt stood and pivot transferred into W/C with CGA. Pt transported to gym via w/c and used arm bike for 8 min and 14 sec at 15 z[place]aga, with 4 recovery periods,for strengthening to improve functional transfers. Pt requested information on pet visitation policy and was provided with paperwork. Pt care transferred to PT in gym. Education OT Patient Education: Progress toward Goal/Update tx plan, Purpose of tx/ functional activities, Safety issues, Transfer techniques Teaching Recipient: Patient Teaching Methods: Demonstration, Discussion Response to Teaching: Verbalize Understanding, Return Demonstration OT Short Term Goals Short Term Goals Time Frame: Jan 11, 2017 Bathing(FIM): 4 Upper Body Dressing(FIM): 3 Lower Body Dressing(FIM): 3 Toileting(FIM): 3 Toilet/Commode Transfer(FIM): 4 Additional Short Term Goals: 2-Verbalize Understanding, 3-ImproveStrength/Tacho 1=Demonstrate adherence to instructed precautions during ADL tasks. 2=Patient will verbalize/demonstrate understanding of assistive devices/ modifications for ADL. 3=Patient will improve strength/tolerance for activity to enable patient to perform ADL's. OT Rn First Assistant Goals Rn First Assistant Goals Time Frame: Jan 25, 2017 Eating (FIM): 6 Eating (QC): 6 Groomin Oral Hygiene (QC): 6 Bathing(FIM): 5 Shower/Bathe Self (QC): 5 Upper Body Dressing(FIM): 5 Upper Body Dressing (QC): 5 Lower Body Dressing(FIM): 5 Lower Body Dressing (QC): 5 On/Off Footwear (QC): 5 Toileting(FIM): 6 Toileting Hygiene (QC): 5 Toilet/Commode Transfer(FIM): 5 Toilet/Commode Transfer (QC): 5 Shower Transfer(FIM): 5 Additional Goals: 2-Verbalize Understanding, 3-ImproveStrength/Tacho 1=Demonstrate adherence to instructed precautions during ADL tasks. 2=Patient will verbalize/demonstrate understanding of assistive devices/ modifications for ADL. 3=Patient will improve strength/tolerance for activity to enable patient to perform ADL's. OT Education/Plan Problem List/Assessment Pt would benefit from skilled OT to increase her independence in basic self care to allow her to safely return to her home and to decrease caregiver burden. Discharge Recommendations Plan/Recommendations: Continue POC Treatment Plan/Plan of Care Patient would benefit from OT for education, treatment and training to promote independence in ADL's, mobility, safety and/or upper extremity function for ADL' s. Plan of Care: ADL Retraining, Functional Mobility, Group Exercise/Act as Ind ( education, exercise, funct activity, activ tolerance, ), UE Funct Exercise/Act, UE Neuromus Re-Ed/Coord Treatment Duration: Jan 25, 2017 Frequency: At least 5 of 7 days/Wk (IRF) Estimated Hrs Per Day: 1.5 hours per day Agreement: Yes Rehab Potential: Good Time/GCodes Start Time: 13:15 Stop Time: 14:05 Total Time Billed (hr/min): 50 Billed Treatment Time visit, funct activity 20 minutes, exercise 30 minutes YAMILET JERONIMO OT Jan 08, 2017 14:40
--- NOTE | 2017-01-08 14:51 | Physical Therapy Daily Note ---
PT Daily Note-Current Subjective Pt sitting in [facility] in Therapy Gym after finishing w/OT upon arrival. Pt agrees to PT. Pain Numeric Pain Scale: 5-Moderate Pain Location: Left Location Body Site: Hip Pain Description: Sharp Mental Status Patient Orientation: Person, Place, Time, Situation Attachments: Silva Catheter, Other-See Comments (LUE sling) Transfers Functional [place] Measure 0=Not Assessed/NA 4=Minimal Assistance 1=Total Assistance 5=Supervision or Setup 2=Maximal Assistance 6=Modified [place] 3=Moderate Assistance 7=Complete IndependenceIRFPAI Quality Coding Scale 6 Independent with activity with or without an assistive device 5 Patient requires set up or clean up by helper. Patient completes activity by themselves 4 Supervision or touching assist (CGA). [place] provide cues , steadying assist 3 The helper provides less than half the effort to complete the activity 2 The helper provides more than half the effort to complete the activity 1 Dependent. The helper does all the effort to complete an activity 7 Patient refused to complete or attempt activity 9 The patient did not perform the activity before the current illness or injury 88 Not attempted due to Medical conditions or safety concerns Scootin Supine to/from Sit: 4 Sit to/from Stand: 5 Sit to Lying (QC): 4 Sit to Stand (QC): 5 Weight Bearing Right Lower Extremity: Right Full Weight Bearing Left Lower Extremity: Left Weight Bearing/Tolerated with standby assistance Left UE in a sling Wheelchair Training Does the Pt Use a Wheelchair?: Yes Wheelchair Distance: 3=150 ft Distance: 150' Wheelchair Level of Assist: 2 Wheel 50 ft with 2 turns (QC): 2 Type of Wheelchair: Manual Pt has difficulty maneuvering the [facility] since LUE is in sling. Exercises Seated Therapy Exercises: Ankle pumps, Long arc quads, Hip flexion, Kicking activity, Hip abd/add Seated Reps: 20 Treatments Pt completes Seated Ex in [facility] followed by standing at //bars. Pt returns to room to rest, transfers from sitting in [facility] to Supine in bed at Min A for lifting LE into bed. Pt rests at end of tx with all needs met. Assessment Current Status: Good Progress Pt experiences fatigue and pain during tx. PT Short Term Goals Short Term Goals Time Frame: Jan 11, 2017 Gait (FIM): 2 Distance (FIM): 4=023-34 ft PT Structural Steel Erector Goals Long-Term Goals PT Long-Term Goals Time Frame: Jan 25, 2017 Transfers (B,C,W/C) (FIM): 6 Sit to Lying (QC): 6 Lying-Sitting on Side/Bed(QC): 6 Sit to Stand (QC): 6 Rollin Roll Left to Right (QC): 6 Chair/Jza-qf-Fvyvf Xfer(QC): 6 Car Transfer (QC): 6 Does the Patient Walk: Yes Gait (FIM): 6 Gait distance (FIM): 3=150 ft Walk 10 feet (QC): 6 Walk 10ft-Uneven Surface(QC): 6 Walk 50ft with 2 Turns (QC): 6 Walk 150 ft (QC): 6 Gait Assistive Device: Cane Small Base Quad (or 1 handed walker) Does the Pt use WC or Scooter?: No Stairs (FIM): 2 # of Steps: 4 1 Step (curb) (QC): 5 4 Steps (QC): 5 12 Steps (QC): 0 (dash) Picking up an Object (QC): 5 PT Plan Problem List Problem List: Activity Tolerance, Functional Strength, Safety, Balance, Gait, Transfer Treatment/Plan Treatment Plan: Continue Plan of Care Treatment Plan: Bed Mobility, Education, Functional Activity Tacho, Functional Strength, Group Therapy, Gait, Safety, Therapeutic Exercise, Transfers Treatment Duration: Jan 25, 2017 Frequency: At least 5 of 7 days/Wk (IRF) Estimated Hrs Per Day: 1.5 hours per day Patient and/or Family Agrees t: Yes Safety Risks/Education Patient Education: Transfer Techniques, Correct Positioning, Safety Issues Teaching Recipient: Patient Teaching Methods: Discussion Response to Teaching: Verbalize Understanding Time/GCodes Time In: 1405 Time Out: 1435 Total Billed Treatment Time: 30 Total Billed Treatment 1, EX (20m) & FA (10m) VINNY COSME AIRWAYS OPERATIONS SPECIALIST Jan 08, 2017 14:50
[2017-01-08] MEDS ORDERED: BETHANECHOL 10 MG (URECHOLINE) TAB PO SCH (16:00)
[2017-01-08] MEDS: BETHANECHOL 25 MG (URECHOLINE) TAB PO SCH ×2 (16:10→20:13)
[2017-01-08] MEDS: ALFUZOSIN HCL 10 MG TAB (UROXATRAL) PO SCH (17:13)
[2017-01-08 18:17] VITALS: BP 144/71
[2017-01-08] MEDS: lisINopril 20 MG (ZESTRIL) TAB PO SCH (20:13)
[2017-01-08] MEDS: TEMAZEPAM 15 MG (RESTORIL) CAP PO SCH (20:13)
[2017-01-09] MEDS: HYDROcodone/APAP 10 MG/325 MG (LORTAB) TAB PO PRN ×5 (00:07→20:29)
[2017-01-09 06:10] VITALS: BP 115/72
[2017-01-09] MEDS: METOCLOPRAMIDE 10 MG (REGLAN) TAB PO SCH ×3 (06:11→17:43)
[2017-01-09] MEDS: OMEGA 3 (FISH OIL) 1000 MG CAP PO SCH ×2 (06:11→17:43)
[2017-01-09] MEDS: PANTOPRAZOLE 40 MG (PROTONIX) TAB PO SCH (06:11)
[2017-01-09] MEDS: LEVOTHYROXINE 50 MCG (LEVOTHROID) TAB PO SCH (06:11)
[2017-01-09] MEDS: BETHANECHOL 25 MG (URECHOLINE) TAB PO SCH ×4 (06:11→20:26)
[2017-01-09] MEDS: HYDROCHLOROTHIAZIDE 25 MG (HCTZ) TAB PO SCH (08:23)
[2017-01-09] MEDS: CLOPIDOGREL 75 MG (PLAVIX) TABLET PO SCH (08:23)
[2017-01-09] MEDS: PYRIDOXINE (VITAMIN B-6) 50 MG TABLET PO SCH (08:23)
[2017-01-09] MEDS: DOCUSATE SODIUM 100 MG (COLACE) CAP PO SCH ×2 (08:23→20:26)
[2017-01-09] MEDS: amLODIPine 10 MG (NORVASC) TAB PO SCH (08:23)
[2017-01-09] MEDS: hydrOXYzine (VISTARIL) 25 MG CAP PO SCH ×4 (08:25→20:26)
[2017-01-09] MEDS: LACTULOSE SYRUP 10GM/15ML (ENULOSE) 30ML UDC PO SCH ×2 (08:40→20:26)
--- NOTE | 2017-01-09 08:51 | PM & R (SOAP) Progress Note ---
Subjective Time Seen by Provider: 08:05 Subjective/Events-last exam Patient was seen in her room this AM Appreciate DR Calle note and orders Silva catheter remains in for now Awaiting formal Ortho consult with DR Bae or associate. Patient min assist for transfers Review of Systems Genitourinary: Retention Musculoskeletal: arm pain, leg pain Objective Exam Last Set of Vital Signs Vital Signs Date Time Temp Pulse Resp B/P (MAP) Pulse Ox O2 Delivery O2 Flow Rate FiO2 01/09/17 06:10 97.7 63 20 115/72 96 Room Air Capillary Refill : Less Than 3 Seconds I&O Intake and Output 01/10/17 00:00 Intake Total 150 ml Output Total 350 ml Balance -200 ml Intake Oral 150 ml Output Urine Total 350 ml General: Alert, Oriented X3, Cooperative, No Acute Distress HEENT: Atraumatic, PERRLA, EOMI, Mucous Memb Moist/[place] Neck: Supple, No JVD Lungs: Clear to Auscultation Heart: Regular Rate Abdomen: Normal Bowel Sounds, Soft, No Tenderness Extremities: No Edema, Other (left arm in sling) Neuro: Other (left HP) Other physical findings Indwelling Silva catheter to DD Results Lab Microbiology 01/05/17 Urine Culture - Final, Complete NO GROWTH Assessment/Plan Assessment fall with resulting left humerus frx and left periprosthetic hip frx managed with sling for LUE and WBAT for 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 GERD on meds Constipation associated with vasovagal reaction s/p BM earlier this week Chronic Back pain with hx of Spinal surgery times 4 Hx of lung ca with lobectomy HTN controlled Low grade fever resolved with no growth on Urine culture-resolved Urinary retention currently being managed with indwelling Silva catheter-Dr stern following and providing RX Plan Continue PT/OT Dr Najera has requested a formal Ortho consult-DR Bae or associate to see Team Conference to be held later today-See report for full functional update and POC and ELOS DR Stern to follow-up re urinary retention as per his note REBEKAH GRECO MD Jan 09, 2017 08:51
--- NOTE | 2017-01-09 09:28 | Physical Therapy Daily Note ---
PT Daily Note-Current Subjective Pt asleep Supine in bed upon arrival. Pt agrees to PT but is having trouble waking up. Pain Numeric Pain Scale: 3 Location: Left Location Body Site: Hip Pain Description: Ache Mental Status Patient Orientation: Person, Place, Time, Situation Attachments: Other-See Comments (LUE sling) Transfers Functional [place] Measure 0=Not Assessed/NA 4=Minimal Assistance 1=Total Assistance 5=Supervision or Setup 2=Maximal Assistance 6=Modified [place] 3=Moderate Assistance 7=Complete IndependenceIRFPAI Quality Coding Scale 6 Independent with activity with or without an assistive device 5 Patient requires set up or clean up by helper. Patient completes activity by themselves 4 Supervision or touching assist (CGA). [place] provide cues , steadying assist 3 The helper provides less than half the effort to complete the activity 2 The helper provides more than half the effort to complete the activity 1 Dependent. The helper does all the effort to complete an activity 7 Patient refused to complete or attempt activity 9 The patient did not perform the activity before the current illness or injury 88 Not attempted due to Medical conditions or safety concerns Weight Bearing Right Lower Extremity: Right Full Weight Bearing Left Lower Extremity: Left Weight Bearing/Tolerated with standby assistance Left UE in a sling Exercises Supine Ex: Ankle pumps, Quad Set, Glut sets, Heel Slides, Straight leg raise, Hip abd/add Supine Reps: 20 (2 sets of 20 reps) Treatments Pt was asleep upon arrival and was difficult to wake. Pt took a little while to fully wake to complete tx. Pt completed Supine Ex in bed then rested. Pt and PT discussed what to expect from Weekly Mtg. and how it affects tx. Pt refused attempt to ambulate to restroom. Pt resting in bed at end of tx with all needs met. Assessment Current Status: Fair Progress Pt appears to have lack of motivation to get out of bed at this time. PT Short Term Goals Short Term Goals Time Frame: Jan 11, 2017 Gait (FIM): 2 Distance (FIM): 5=273-90 ft Wheelchair Distance: 150' PT Half-Way Goals Food Assembler Goals PT Food Assembler Goals Time Frame: Jan 25, 2017 Transfers (B,C,W/C) (FIM): 6 Sit to Lying (QC): 6 Lying-Sitting on Side/Bed(QC): 6 Sit to Stand (QC): 6 Rollin Roll Left to Right (QC): 6 Chair/Ppa-yk-Grkmw Xfer(QC): 6 Car Transfer (QC): 6 Does the Patient Walk: Yes Gait (FIM): 6 Gait distance (FIM): 3=150 ft Walk 10 feet (QC): 6 Walk 10ft-Uneven Surface(QC): 6 Walk 50ft with 2 Turns (QC): 6 Walk 150 ft (QC): 6 Gait Assistive Device: Cane Small Base Quad (or 1 handed walker) Does the Pt use WC or Scooter?: No Stairs (FIM): 2 # of Steps: 4 1 Step (curb) (QC): 5 4 Steps (QC): 5 12 Steps (QC): 0 (dash) Picking up an Object (QC): 5 PT Plan Problem List Problem List: Activity Tolerance, Functional Strength, Safety, Balance, Gait, Transfer, Bed Mobility Treatment/Plan Treatment Plan: Continue Plan of Care Treatment Plan: Bed Mobility, Education, Functional Activity Tacho, Functional Strength, Group Therapy, Gait, Safety, Therapeutic Exercise, Transfers Treatment Duration: Jan 25, 2017 Frequency: At least 5 of 7 days/Wk (IRF) Estimated Hrs Per Day: 1.5 hours per day Patient and/or Family Agrees t: Yes Safety Risks/Education Patient Education: Transfer Techniques, Correct Positioning, Safety Issues Teaching Recipient: Patient Teaching Methods: Discussion Response to Teaching: Verbalize Understanding Time/GCodes Time In: 815 Time Out: 915 Total Billed Treatment Time: 60 Total Billed Treatment 1,EX x2 (30m) & FA x2 (30m) VINNY COSME DISTRIBUTION DISTRICT SUPERVISOR Jan 09, 2017 09:28
--- NOTE | 2017-01-09 12:02 | Progress Note-Hospitalist ---
Progress Note Progress Notes/Assess & Plan Date Seen 01/09/17 Time Seen by Provider: 11:30 Diagonsis/Assessment & Plan Chart Review: UA negative Urine cx NGTD chief engineer: Pt had a pain pill this am Pt is still having issues with urinary retention periodically Patient Interview: Pt states she is doing alright. 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 Pt is unsure if the Urecholine is working Pt denies use of IS, pt was advised to start IS Physical exam stable. AFVSS, pleasant, improved, chronically ill RRR, CTAB except diminished in LLL No edema Assessment: Hip fracture Left humerus fracture h/o lung cancer right s/p resection urinary retention Constipation Plan: IS Monitor pt Scribed by Minda Bhakta under the direct supervision of Dr. Bone. GERDA BONE DO Jan 09, 2017 12:02
--- NOTE | 2017-01-09 13:45 | Occupational Ther Daily Note ---
OT Current Status-Daily Note Subjective Pt seen in room, up in bed, agreeable to OT. reported some L shoulder and hip discomfort but had just gotten pain meds. Appearance Alert, cooperative Mental Status/Objective Functional [place] Measure 0=Not Assessed/NA 4=Minimal Assistance 1=Total Assistance 5=Supervision or Setup 2=Maximal Assistance 6=Modified [place] 3=Moderate Assistance 7=Complete [place] ADL-Treatment Pt moved supine to sit with mod assist but moved faster than yesterday. Required recovery period before and after each transfer. Transferred 6 times - bed to BSC, to w/c, to shower bench, to BSC, to w/c, to bed, all min assist. Transfers appeared a little easier after practice and she moved her feet a little quicker. Pt very fatigued by end of tx. Pt left up in bed, 4 rails up, heels floating on pillows, all needs met. Functional [place] Measure 0=Not Assessed/NA 4=Minimal Assistance 1=Total Assistance 5=Supervision or Setup 2=Maximal Assistance 6=Modified [place] 3=Moderate Assistance 7=Complete IndependenceIRFPAI Quality Coding Scale 6 Independent with activity with or without an assistive device 5 Patient requires set up or clean up by helper. Patient completes activity by themselves 4 Supervision or touching assist (CGA). [place] provide cues , steadying assist 3 The helper provides less than half the effort to complete the activity 2 The helper provides more than half the effort to complete the activity 1 Dependent. The helper does all the effort to complete an activity 7 Patient refused to complete or attempt activity 9 The patient did not perform the activity before the current illness or injury 88 Not attempted due to Medical conditions or safety concerns Bathing (FIM): 4 (Washed and dried all parts listed. Help to wash hair, back, bottom. Shower bench, grab bars, hand held shower) Bathing Location: L Arm, R Arm, L Upper Leg, R Upper Leg, L Lower Leg ( including foot), R Lower Leg (including foot), Chest, Abdomen, Perineal Area Upper Body (FIM): 4 (Help to get R arm out of shirt, then she got it over her head and off L arm. Put shirt on L arm, R arm, over head but needed help to pull it down. Pt is ubale to doff or don sling.) Lower Body Dressing (FIM): 2 (Help to thread Silva catheter, get feet into pants, manage clipper socks. Stood min assist and helped pull pants up over hips. ) Toileting (FIM): 3 (Helped pull pants up. Unable to wipe herself. still has Silva. BSC, grab bar or walker) Toilet/Commode Transfer (FIM): 4 (On/off BSC, using walker. ) Blisters observed back of R thigh. Pt thought pink pad on bed was contributing so pad removed. Nursing notified Education OT Patient Education: Modified ADL techniques, Progress toward Goal/Update tx plan, Purpose of tx/functional activities, Transfer techniques Teaching Recipient: Patient Teaching Methods: Demonstration, Discussion Response to Teaching: Verbalize Understanding, Return Demonstration, Reinforcement Needed OT Short Term Goals Short Term Goals Time Frame: Jan 11, 2017 Bathing(FIM): 4 Upper Body Dressing(FIM): 3 Lower Body Dressing(FIM): 3 Toileting(FIM): 3 Toilet/Commode Transfer(FIM): 4 Additional Short Term Goals: 2-Verbalize Understanding, 3-ImproveStrength/Tacho 1=Demonstrate adherence to instructed precautions during ADL tasks. 2=Patient will verbalize/demonstrate understanding of assistive devices/ modifications for ADL. 3=Patient will improve strength/tolerance for activity to enable patient to perform ADL's. OT Personnel Counselor Goals Personnel Counselor Goals Time Frame: Jan 25, 2017 Eating (FIM): 6 Eating (QC): 6 Groomin Oral Hygiene (QC): 6 Bathing(FIM): 5 Shower/Bathe Self (QC): 5 Upper Body Dressing(FIM): 5 Upper Body Dressing (QC): 5 Lower Body Dressing(FIM): 5 Lower Body Dressing (QC): 5 On/Off Footwear (QC): 5 Toileting(FIM): 6 Toileting Hygiene (QC): 5 Toilet/Commode Transfer(FIM): 5 Toilet/Commode Transfer (QC): 5 Shower Transfer(FIM): 5 Additional Goals: 2-Verbalize Understanding, 3-ImproveStrength/Tacho 1=Demonstrate adherence to instructed precautions during ADL tasks. 2=Patient will verbalize/demonstrate understanding of assistive devices/ modifications for ADL. 3=Patient will improve strength/tolerance for activity to enable patient to perform ADL's. OT Education/Plan Problem List/Assessment Pt would benefit from skilled OT to increase her independence in basic self care to allow her to safely return to her home and to decrease caregiver burden. Discharge Recommendations Plan/Recommendations: Continue POC Treatment Plan/Plan of Care Patient would benefit from OT for education, treatment and training to promote independence in ADL's, mobility, safety and/or upper extremity function for ADL' s. Plan of Care: ADL Retraining, Functional Mobility, Group Exercise/Act as Ind ( education, exercise, funct activity, activ tolerance, ), UE Funct Exercise/Act, UE Neuromus Re-Ed/Coord Treatment Duration: Jan 25, 2017 Frequency: At least 5 of 7 days/Wk (IRF) Estimated Hrs Per Day: 1.5 hours per day Agreement: Yes Rehab Potential: Good Time/GCodes Start Time: 11:00 Stop Time: 12:15 Total Time Billed (hr/min): 75 Billed Treatment Time visit, 75 minutes ADL YAMILET JERONIMO OT Jan 09, 2017 13:45
--- NOTE | 2017-01-09 15:03 | Occupational Ther Daily Note ---
OT Current Status-Daily Note Subjective Pt sleeping at beginning of tx. Agreeable to therapy. No mention of pain but had discomfort on bottom. Appearance Alert, cooperative. Mental Status/Objective Functional [place] Measure 0=Not Assessed/NA 4=Minimal Assistance 1=Total Assistance 5=Supervision or Setup 2=Maximal Assistance 6=Modified [place] 3=Moderate Assistance 7=Complete [place] ADL-Treatment Functional [place] Measure 0=Not Assessed/NA 4=Minimal Assistance 1=Total Assistance 5=Supervision or Setup 2=Maximal Assistance 6=Modified [place] 3=Moderate Assistance 7=Complete IndependenceIRFPAI Quality Coding Scale 6 Independent with activity with or without an assistive device 5 Patient requires set up or clean up by helper. Patient completes activity by themselves 4 Supervision or touching assist (CGA). [place] provide cues , steadying assist 3 The helper provides less than half the effort to complete the activity 2 The helper provides more than half the effort to complete the activity 1 Dependent. The helper does all the effort to complete an activity 7 Patient refused to complete or attempt activity 9 The patient did not perform the activity before the current illness or injury 88 Not attempted due to Medical conditions or safety concerns Other Treatment Pt was educated UE exercises for R UE with 7 exercises for shoulder, elbow, forearm, and wrist for strengthening to improve ADLs and transfers. Pt was able to return demonstration by completing 10 reps of each exercise. Pt in bed, with 4 rails up and all needs met at end of tx. Education OT Patient Education: Correct positioning, Exercise program, Purpose of tx/ functional activities Teaching Recipient: Patient Teaching Methods: Demonstration, Discussion Response to Teaching: Verbalize Understanding, Return Demonstration OT Short Term Goals Short Term Goals Time Frame: Jan 11, 2017 Bathing(FIM): 4 Upper Body Dressing(FIM): 3 Lower Body Dressing(FIM): 3 Toileting(FIM): 3 Toilet/Commode Transfer(FIM): 4 Additional Short Term Goals: 2-Verbalize Understanding, 3-ImproveStrength/Tacho 1=Demonstrate adherence to instructed precautions during ADL tasks. 2=Patient will verbalize/demonstrate understanding of assistive devices/ modifications for ADL. 3=Patient will improve strength/tolerance for activity to enable patient to perform ADL's. OT Nursing Home Goals Hair Mixer Goals Time Frame: Jan 25, 2017 Eating (FIM): 6 Eating (QC): 6 Groomin Oral Hygiene (QC): 6 Bathing(FIM): 5 Shower/Bathe Self (QC): 5 Upper Body Dressing(FIM): 5 Upper Body Dressing (QC): 5 Lower Body Dressing(FIM): 5 Lower Body Dressing (QC): 5 On/Off Footwear (QC): 5 Toileting(FIM): 6 Toileting Hygiene (QC): 5 Toilet/Commode Transfer(FIM): 5 Toilet/Commode Transfer (QC): 5 Shower Transfer(FIM): 5 Additional Goals: 2-Verbalize Understanding, 3-ImproveStrength/Tacho 1=Demonstrate adherence to instructed precautions during ADL tasks. 2=Patient will verbalize/demonstrate understanding of assistive devices/ modifications for ADL. 3=Patient will improve strength/tolerance for activity to enable patient to perform ADL's. OT Education/Plan Problem List/Assessment Pt would benefit from skilled OT to increase her independence in basic self care to allow her to safely return to her home and to decrease caregiver burden. Discharge Recommendations Plan/Recommendations: Continue POC Treatment Plan/Plan of Care Patient would benefit from OT for education, treatment and training to promote independence in ADL's, mobility, safety and/or upper extremity function for ADL' s. Plan of Care: ADL Retraining, Functional Mobility, Group Exercise/Act as Ind ( education, exercise, funct activity, activ tolerance, ), UE Funct Exercise/Act, UE Neuromus Re-Ed/Coord Treatment Duration: Jan 25, 2017 Frequency: At least 5 of 7 days/Wk (IRF) Estimated Hrs Per Day: 1.5 hours per day Agreement: Yes Rehab Potential: Good Time/GCodes Start Time: 13:30 Stop Time: 13:45 Total Time Billed (hr/min): 15 Billed Treatment Time visit, exercise 15 minutes YAMILET JERONIMO OT Jan 09, 2017 15:03
--- NOTE | 2017-01-09 15:47 | Physical Therapy Daily Note ---
PT Daily Note-Current Subjective Pt asleep upon arrival. Pt agrees to PT. Pain Numeric Pain Scale: 5-Moderate Pain Location: Left Location Body Site: Hip Pain Description: Sharp Mental Status Patient Orientation: Person, Place, Time, Situation Attachments: Silva Catheter Transfers Functional [place] Measure 0=Not Assessed/NA 4=Minimal Assistance 1=Total Assistance 5=Supervision or Setup 2=Maximal Assistance 6=Modified [place] 3=Moderate Assistance 7=Complete IndependenceIRFPAI Quality Coding Scale 6 Independent with activity with or without an assistive device 5 Patient requires set up or clean up by helper. Patient completes activity by themselves 4 Supervision or touching assist (CGA). [place] provide cues , steadying assist 3 The helper provides less than half the effort to complete the activity 2 The helper provides more than half the effort to complete the activity 1 Dependent. The helper does all the effort to complete an activity 7 Patient refused to complete or attempt activity 9 The patient did not perform the activity before the current illness or injury 88 Not attempted due to Medical conditions or safety concerns Scootin Rollin Supine to/from Sit: 4 Sit to/from Stand: 4 Sit to Lying (QC): 4 Sit to Stand (QC): 4 Weight Bearing Right Lower Extremity: Right Full Weight Bearing Left Lower Extremity: Left Weight Bearing/Tolerated with standby assistance Left UE in a sling Gait Training Does the Patient Walk?: Yes Distance (FIM): 1=up to 49 ft Distance: 20' Walk 10 feet (QC): 4 Gait Level of Assist: 4 Gait Persons Needed: 1 Gait Assistive Device: Walker Center-Hold Exercises Supine Ex: Ankle pumps, Hip abd/add Supine Reps: 10 Seated Therapy Exercises: Sit to stand Treatments Pt completed Supine Ex before transferring from Supine to EOB at [facility]-Min A then EOB to Standing using FWW at Min A. Pt ambulated in room using FWW at [facility] before returning to bed to rest. Pt needs assistance to lift LLE into bed. Pt rests at end of tx with all needs met. Assessment Current Status: Good Progress Pt is fatigued and reports pain during ambulation and transfers. PT Short Term Goals Short Term Goals Time Frame: Jan 11, 2017 Gait (FIM): 2 Distance (FIM): 1=077-00 ft Wheelchair Distance: 150' PT Auto Tune Up Mechanic Goals Senior Care Goals PT Auto Tune Up Mechanic Goals Time Frame: Jan 25, 2017 Transfers (B,C,W/C) (FIM): 6 Sit to Lying (QC): 6 Lying-Sitting on Side/Bed(QC): 6 Sit to Stand (QC): 6 Rollin Roll Left to Right (QC): 6 Chair/Fph-ba-Wythw Xfer(QC): 6 Car Transfer (QC): 6 Does the Patient Walk: Yes Gait (FIM): 6 Gait distance (FIM): 3=150 ft Walk 10 feet (QC): 6 Walk 10ft-Uneven Surface(QC): 6 Walk 50ft with 2 Turns (QC): 6 Walk 150 ft (QC): 6 Gait Assistive Device: Cane Small Base Quad (or 1 handed walker) Does the Pt use WC or Scooter?: No Stairs (FIM): 2 # of Steps: 4 1 Step (curb) (QC): 5 4 Steps (QC): 5 12 Steps (QC): 0 (dash) Picking up an Object (QC): 5 PT Plan Problem List Problem List: Activity Tolerance, Functional Strength, Safety, Balance, Gait, Transfer, Bed Mobility Treatment/Plan Treatment Plan: Continue Plan of Care Treatment Plan: Bed Mobility, Education, Functional Activity Tacho, Functional Strength, Group Therapy, Gait, Safety, Therapeutic Exercise, Transfers Treatment Duration: Jan 25, 2017 Frequency: At least 5 of 7 days/Wk (IRF) Estimated Hrs Per Day: 1.5 hours per day Patient and/or Family Agrees t: Yes Safety Risks/Education Patient Education: Gait Training, Transfer Techniques, Correct Positioning, Safety Issues Teaching Recipient: Patient Teaching Methods: Discussion Response to Teaching: Verbalize Understanding Time/GCodes Time In: 1430 Time Out: 1500 Total Billed Treatment Time: 30 Total Billed Treatment 1, FA x2 (30m) VINNY COSME ROAD FREIGHT FIRER Jan 09, 2017 15:47
[2017-01-09 17:45] VITALS: BP 115/72
[2017-01-09] MEDS: ALFUZOSIN HCL 10 MG TAB (UROXATRAL) PO SCH (18:35)
[2017-01-09] MEDS: TEMAZEPAM 15 MG (RESTORIL) CAP PO SCH (20:26)
[2017-01-09] MEDS: lisINopril 20 MG (ZESTRIL) TAB PO SCH (20:26)
[2017-01-10] MEDS: HYDROcodone/APAP 10 MG/325 MG (LORTAB) TAB PO PRN ×4 (05:31→21:10)
[2017-01-10 05:56] VITALS: BP 116/72
[2017-01-10] MEDS: LEVOTHYROXINE 50 MCG (LEVOTHROID) TAB PO SCH (06:52)
[2017-01-10] MEDS: BETHANECHOL 25 MG (URECHOLINE) TAB PO SCH ×4 (06:52→21:10)
[2017-01-10] MEDS: PANTOPRAZOLE 40 MG (PROTONIX) TAB PO SCH (06:52)
[2017-01-10] MEDS: METOCLOPRAMIDE 10 MG (REGLAN) TAB PO SCH ×3 (06:52→16:43)
[2017-01-10] MEDS: OMEGA 3 (FISH OIL) 1000 MG CAP PO SCH ×2 (06:52→16:43)
--- NOTE | 2017-01-10 08:41 | PM & R (SOAP) Progress Note ---
Subjective Time Seen by Provider: 07:50 Subjective/Events-last exam Patient was seen in her room this AM Patient min assist for transfers Review of Systems Musculoskeletal: arm pain, leg pain Objective Exam Last Set of Vital Signs Vital Signs Date Time Temp Pulse Resp B/P (MAP) Pulse Ox O2 Delivery O2 Flow Rate FiO2 01/10/17 05:56 98.3 70 18 116/72 92 Room Air Capillary Refill : Less Than 3 Seconds I&O Intake and Output 01/11/17 00:00 Intake Total 150 ml Output Total 375 ml Balance -225 ml Intake Oral 150 ml Output Urine Total 375 ml General: Alert, Oriented X3, Cooperative, No Acute Distress HEENT: Atraumatic, PERRLA, EOMI, Mucous Memb Moist/[place] Neck: Supple, No JVD Lungs: Clear to Auscultation Heart: Regular Rate Abdomen: Normal Bowel Sounds, Soft, No Tenderness Extremities: No Edema, Other (left arm in sling) Neuro: Other (left HP) Results Lab Microbiology 01/05/17 Urine Culture - Final, Complete NO GROWTH Assessment/Plan Assessment fall with resulting left humerus frx and left periprosthetic hip frx managed with sling for LUE and WBAT for 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 GERD on meds Constipation associated with vasovagal reaction s/p BM earlier this week Chronic Back pain with hx of Spinal surgery times 4 Hx of lung ca with lobectomy HTN controlled Low grade fever resolved with no growth on Urine culture-resolved Urinary retention currently being managed with indwelling Silva catheter-Dr stern following and providing RX Plan Continue PT/OT Dr Najera has requested a formal Ortho consult-DR Bae or associate to see Team Conference hedl yesterday -See report for full functional update and POC and ELOS DR Stern to follow-up re urinary retention as per his note Appreciate REBEKAH Godfrey MD Jan 10, 2017 08:41
[2017-01-10] MEDS: LACTULOSE SYRUP 10GM/15ML (ENULOSE) 30ML UDC PO SCH ×2 (08:46→21:11)
[2017-01-10] MEDS: PYRIDOXINE (VITAMIN B-6) 50 MG TABLET PO SCH (08:46)
[2017-01-10] MEDS: hydrOXYzine (VISTARIL) 25 MG CAP PO SCH ×4 (08:46→21:10)
[2017-01-10] MEDS: amLODIPine 10 MG (NORVASC) TAB PO SCH (08:46)
[2017-01-10] MEDS: DOCUSATE SODIUM 100 MG (COLACE) CAP PO SCH ×2 (08:46→21:11)
[2017-01-10] MEDS: HYDROCHLOROTHIAZIDE 25 MG (HCTZ) TAB PO SCH (08:46)
[2017-01-10] MEDS: ONDANSETRON 8 MG (ZOFRAN) ORAL DISSOLVE TAB PO PRN (10:39)
[2017-01-10 10:40] VITALS: BP 100/56
--- NOTE | 2017-01-10 11:50 | Physical Therapy Daily Note ---
PT Daily Note-Current Subjective Pt laying in bed upon arrival. Pt had just received pain med. Pt agrees to PT but reports more pain in L femur since yesterday. Pain Numeric Pain Scale: 8 Location: Left Location Body Site: Thigh Pain Description: Sharp Mental Status Patient Orientation: Person, Place, Time, Situation Transfers Functional [place] Measure 0=Not Assessed/NA 4=Minimal Assistance 1=Total Assistance 5=Supervision or Setup 2=Maximal Assistance 6=Modified [place] 3=Moderate Assistance 7=Complete IndependenceIRFPAI Quality Coding Scale 6 Independent with activity with or without an assistive device 5 Patient requires set up or clean up by helper. Patient completes activity by themselves 4 Supervision or touching assist (CGA). [place] provide cues , steadying assist 3 The helper provides less than half the effort to complete the activity 2 The helper provides more than half the effort to complete the activity 1 Dependent. The helper does all the effort to complete an activity 7 Patient refused to complete or attempt activity 9 The patient did not perform the activity before the current illness or injury 88 Not attempted due to Medical conditions or safety concerns Scootin Rollin Roll Left to Right (QC): 4 Supine to/from Sit: 3 Sit to/from Stand: 3 Sit to Stand (QC): 3 Weight Bearing Right Lower Extremity: Right Full Weight Bearing Left Lower Extremity: Left Weight Bearing/Tolerated with standby assistance Left UE in a sling Gait Training Does the Patient Walk?: Yes Distance (FIM): 1=up to 49 ft Distance: 20' Walk 10 feet (QC): 4 Gait Level of Assist: 4 Gait Persons Needed: 1 Gait Assistive Device: Walker Center-Hold Pt's gait is slow and pt shuffles due to tightness in L thigh. Exercises Supine Ex: Ankle pumps, Quad Set, Heel Slides, Straight leg raise, Hip abd/add Supine Reps: 15 Treatments Pt completes Supine Ex to workout tightness and to wake up before transferring. Pt transfers Supine to EOB at Mod A then EOB to Standing using FWW at Min-Mod A. Pt ambulates to restroom using FWW at [facility]-Min A. After using pt, pt reports inability to ambulate back and transfers to [facility]. Pt rest in [facility] at end of tx with all needs met. Assessment Current Status: Fair Progress Pt reports increased pain in L thigh/femur since yesterday and wants nursing to be aware for possible Xrays if needed. Nurse was notified. PT Short Term Goals Short Term Goals Time Frame: Jan 11, 2017 Gait (FIM): 2 Distance (FIM): 5=029-11 ft Wheelchair Distance: 150' PT Garment Sorter Goals Garment Sorter Goals PT Garment Sorter Goals Time Frame: Jan 25, 2017 Transfers (B,C,W/C) (FIM): 6 Sit to Lying (QC): 6 Lying-Sitting on Side/Bed(QC): 6 Sit to Stand (QC): 6 Rollin Roll Left to Right (QC): 6 Chair/Ywx-gi-Tkmiu Xfer(QC): 6 Car Transfer (QC): 6 Does the Patient Walk: Yes Gait (FIM): 6 Gait distance (FIM): 3=150 ft Walk 10 feet (QC): 6 Walk 10ft-Uneven Surface(QC): 6 Walk 50ft with 2 Turns (QC): 6 Walk 150 ft (QC): 6 Gait Assistive Device: Cane Small Base Quad (or 1 handed walker) Does the Pt use WC or Scooter?: No Stairs (FIM): 2 # of Steps: 4 1 Step (curb) (QC): 5 4 Steps (QC): 5 12 Steps (QC): 0 (dash) Picking up an Object (QC): 5 PT Plan Problem List Problem List: Activity Tolerance, Functional Strength, Safety, Balance, Gait, Transfer, Bed Mobility Treatment/Plan Treatment Plan: Continue Plan of Care Treatment Plan: Bed Mobility, Education, Functional Activity Tacho, Functional Strength, Group Therapy, Gait, Safety, Therapeutic Exercise, Transfers Treatment Duration: Jan 25, 2017 Frequency: At least 5 of 7 days/Wk (IRF) Estimated Hrs Per Day: 1.5 hours per day Patient and/or Family Agrees t: Yes Safety Risks/Education Patient Education: Gait Training, Transfer Techniques, Correct Positioning, Safety Issues Teaching Recipient: Patient Teaching Methods: Discussion Response to Teaching: Verbalize Understanding Time/GCodes Time In: 915 Time Out: 1015 Total Billed Treatment Time: 60 Total Billed Treatment 1, GT (15m), EX (15m) & FA x2 (30m) VINNY COSME OIL SCOUT Jan 10, 2017 11:50
--- NOTE | 2017-01-10 12:02 | Occupational Ther Daily Note ---
OT Current Status-Daily Note Subjective Pt in W/C at beginning of treatment. Agreed to therapy. Pain in hip at 8/10 and also had nausea, nurse notified. Appearance Alert, mostly cooperative around pain and nausea. Mental Status/Objective Functional [place] Measure 0=Not Assessed/NA 4=Minimal Assistance 1=Total Assistance 5=Supervision or Setup 2=Maximal Assistance 6=Modified [place] 3=Moderate Assistance 7=Complete [place] ADL-Treatment Functional [place] Measure 0=Not Assessed/NA 4=Minimal Assistance 1=Total Assistance 5=Supervision or Setup 2=Maximal Assistance 6=Modified [place] 3=Moderate Assistance 7=Complete IndependenceIRFPAI Quality Coding Scale 6 Independent with activity with or without an assistive device 5 Patient requires set up or clean up by helper. Patient completes activity by themselves 4 Supervision or touching assist (CGA). [place] provide cues , steadying assist 3 The helper provides less than half the effort to complete the activity 2 The helper provides more than half the effort to complete the activity 1 Dependent. The helper does all the effort to complete an activity 7 Patient refused to complete or attempt activity 9 The patient did not perform the activity before the current illness or injury 88 Not attempted due to Medical conditions or safety concerns Grooming (FIM): 5 (Pt washed face with wash cloth and combed hair with setup while seated in W/C. Pt chose not to brush teeth due to nausea. ) Transfers (B, C, W/C) (FIM): 3 Other Treatment Pt able to remember and demonstrate all 7 exercises from last session for R UE, completing 10 reps of each exercise. Pt transported to gym via W/C and did tabletop activity of 1 inch pegs with 1/4 in stem and small pegboard while wearing a 1/2 # weight on R wrist. Pt transported back to room to use toilet but decided not to use toilet when back in room. Pt completed a second set of 7 UE exercises while wearing 1/2 # weight on R wrist. Pt transferred into bed from W/C with CHW and mod assist for moving both legs into bed. Pt required assist to move to center of bed and roll to R side for pressure relieving positioning. Pt in bed, 4 rails up and and all needs met at end of tx. Education OT Patient Education: Exercise program, Progress toward Goal/Update tx plan, Purpose of tx/functional activities, Transfer techniques Teaching Recipient: Patient Teaching Methods: Demonstration, Discussion Response to Teaching: Verbalize Understanding, Return Demonstration, Reinforcement Needed OT Short Term Goals Short Term Goals Time Frame: Jan 11, 2017 Bathing(FIM): 4 Upper Body Dressing(FIM): 3 Lower Body Dressing(FIM): 3 Toileting(FIM): 3 Toilet/Commode Transfer(FIM): 4 Additional Short Term Goals: 2-Verbalize Understanding, 3-ImproveStrength/Tacho 1=Demonstrate adherence to instructed precautions during ADL tasks. 2=Patient will verbalize/demonstrate understanding of assistive devices/ modifications for ADL. 3=Patient will improve strength/tolerance for activity to enable patient to perform ADL's. OT Assisted Goals Assisted Goals Time Frame: Jan 25, 2017 Eating (FIM): 6 Eating (QC): 6 Groomin Oral Hygiene (QC): 6 Bathing(FIM): 5 Shower/Bathe Self (QC): 5 Upper Body Dressing(FIM): 5 Upper Body Dressing (QC): 5 Lower Body Dressing(FIM): 5 Lower Body Dressing (QC): 5 On/Off Footwear (QC): 5 Toileting(FIM): 6 Toileting Hygiene (QC): 5 Toilet/Commode Transfer(FIM): 5 Toilet/Commode Transfer (QC): 5 Shower Transfer(FIM): 5 Additional Goals: 2-Verbalize Understanding, 3-ImproveStrength/Tacho 1=Demonstrate adherence to instructed precautions during ADL tasks. 2=Patient will verbalize/demonstrate understanding of assistive devices/ modifications for ADL. 3=Patient will improve strength/tolerance for activity to enable patient to perform ADL's. OT Education/Plan Problem List/Assessment Pt would benefit from skilled OT to increase her independence in basic self care to allow her to safely return to her home and to decrease caregiver burden. Discharge Recommendations Plan/Recommendations: Continue POC Treatment Plan/Plan of Care Patient would benefit from OT for education, treatment and training to promote independence in ADL's, mobility, safety and/or upper extremity function for ADL' s. Plan of Care: ADL Retraining, Functional Mobility, Group Exercise/Act as Ind ( education, exercise, funct activity, activ tolerance, ), UE Funct Exercise/Act, UE Neuromus Re-Ed/Coord Treatment Duration: Jan 25, 2017 Frequency: At least 5 of 7 days/Wk (IRF) Estimated Hrs Per Day: 1.5 hours per day Agreement: Yes Rehab Potential: Good Time/GCodes Start Time: 10:30 Stop Time: 11:30 Total Time Billed (hr/min): 60 Billed Treatment Time visit, ADL 15 minutes, exercise 45 minutes. YAMILET JERONIMO OT Jan 10, 2017 12:02
--- NOTE | 2017-01-10 14:36 | Occupational Ther Daily Note ---
OT Current Status-Daily Note Subjective Pt in bed at beginning of tx. Agreed to therapy. Pt c/o pain in hip 5/10 at beginning of tx, reported to nursing, 3/10 at end of tx. Appearance Alert, cooperative around pain. Mental Status/Objective Functional [place] Measure 0=Not Assessed/NA 4=Minimal Assistance 1=Total Assistance 5=Supervision or Setup 2=Maximal Assistance 6=Modified [place] 3=Moderate Assistance 7=Complete [place] ADL-Treatment Functional [place] Measure 0=Not Assessed/NA 4=Minimal Assistance 1=Total Assistance 5=Supervision or Setup 2=Maximal Assistance 6=Modified [place] 3=Moderate Assistance 7=Complete IndependenceIRFPAI Quality Coding Scale 6 Independent with activity with or without an assistive device 5 Patient requires set up or clean up by helper. Patient completes activity by themselves 4 Supervision or touching assist (CGA). [place] provide cues , steadying assist 3 The helper provides less than half the effort to complete the activity 2 The helper provides more than half the effort to complete the activity 1 Dependent. The helper does all the effort to complete an activity 7 Patient refused to complete or attempt activity 9 The patient did not perform the activity before the current illness or injury 88 Not attempted due to Medical conditions or safety concerns Other Treatment Pt transferred from supine to sit with min A and EOB to W/C with CGA. Transfer took longer than usual due to pain in pt's L hip and fatigue. Each movement requires its own recovery period. Pt transported to gym in W/C and did table top activity of graduated clothes pins to increase strength to improve transfers and ADLs. Pt care transferred to PT in gym. Education OT Patient Education: Purpose of tx/functional activities, Transfer techniques Teaching Recipient: Patient Teaching Methods: Demonstration, Discussion Response to Teaching: Verbalize Understanding, Return Demonstration OT Short Term Goals Short Term Goals Time Frame: Jan 11, 2017 Bathing(FIM): 4 Upper Body Dressing(FIM): 3 Lower Body Dressing(FIM): 3 Toileting(FIM): 3 Toilet/Commode Transfer(FIM): 4 Additional Short Term Goals: 2-Verbalize Understanding, 3-ImproveStrength/Tacho 1=Demonstrate adherence to instructed precautions during ADL tasks. 2=Patient will verbalize/demonstrate understanding of assistive devices/ modifications for ADL. 3=Patient will improve strength/tolerance for activity to enable patient to perform ADL's. OT Social Contact Worker Goals [facility] Goals Time Frame: Jan 25, 2017 Eating (FIM): 6 Eating (QC): 6 Groomin Oral Hygiene (QC): 6 Bathing(FIM): 5 Shower/Bathe Self (QC): 5 Upper Body Dressing(FIM): 5 Upper Body Dressing (QC): 5 Lower Body Dressing(FIM): 5 Lower Body Dressing (QC): 5 On/Off Footwear (QC): 5 Toileting(FIM): 6 Toileting Hygiene (QC): 5 Toilet/Commode Transfer(FIM): 5 Toilet/Commode Transfer (QC): 5 Shower Transfer(FIM): 5 Additional Goals: 2-Verbalize Understanding, 3-ImproveStrength/Tacho 1=Demonstrate adherence to instructed precautions during ADL tasks. 2=Patient will verbalize/demonstrate understanding of assistive devices/ modifications for ADL. 3=Patient will improve strength/tolerance for activity to enable patient to perform ADL's. OT Education/Plan Problem List/Assessment Pt would benefit from skilled OT to increase her independence in basic self care to allow her to safely return to her home and to decrease caregiver burden. Discharge Recommendations Plan/Recommendations: Continue POC Treatment Plan/Plan of Care Patient would benefit from OT for education, treatment and training to promote independence in ADL's, mobility, safety and/or upper extremity function for ADL' s. Plan of Care: ADL Retraining, Functional Mobility, Group Exercise/Act as Ind ( education, exercise, funct activity, activ tolerance, ), UE Funct Exercise/Act, UE Neuromus Re-Ed/Coord Treatment Duration: Jan 25, 2017 Frequency: At least 5 of 7 days/Wk (IRF) Estimated Hrs Per Day: 1.5 hours per day Agreement: Yes Rehab Potential: Good Time/GCodes Start Time: 13:30 Stop Time: 14:05 Total Time Billed (hr/min): 35 Billed Treatment Time visit, funct act 30 minutes, exercise 5 minutes YAMILET JERONIMO OT Jan 10, 2017 14:36
--- NOTE | 2017-01-10 15:59 | Physical Therapy Daily Note ---
PT Daily Note-Current Subjective Pt sitting in WCH after just finishing with OT upon arrival. Pt agrees to PT to get ready for LLE Xray. Pain Numeric Pain Scale: 5-Moderate Pain Location: Left Location Body Site: Thigh Pain Description: Sharp Mental Status Patient Orientation: Person, Place, Time, Situation Attachments: Silva Catheter Transfers Functional [place] Measure 0=Not Assessed/NA 4=Minimal Assistance 1=Total Assistance 5=Supervision or Setup 2=Maximal Assistance 6=Modified [place] 3=Moderate Assistance 7=Complete IndependenceIRFPAI Quality Coding Scale 6 Independent with activity with or without an assistive device 5 Patient requires set up or clean up by helper. Patient completes activity by themselves 4 Supervision or touching assist (CGA). [place] provide cues , steadying assist 3 The helper provides less than half the effort to complete the activity 2 The helper provides more than half the effort to complete the activity 1 Dependent. The helper does all the effort to complete an activity 7 Patient refused to complete or attempt activity 9 The patient did not perform the activity before the current illness or injury 88 Not attempted due to Medical conditions or safety concerns Scootin Rollin Roll Left to Right (QC): 4 Supine to/from Sit: 4 Sit to/from Stand: 3 Sit to Lying (QC): 4 Sit to Stand (QC): 3 Chair/Ibv-nx-Zpxyb Xfer(QC): 3 Bed to/from Chair: 3 Weight Bearing Right Lower Extremity: Right Full Weight Bearing Left Lower Extremity: Left Weight Bearing/Tolerated with standby assistance Left UE in a sling Wheelchair Training Does the Pt Use a Wheelchair?: Yes Wheelchair Distance: 3=150 ft Distance: 150' Wheelchair Level of Assist: 4 Wheel 50 ft with 2 turns (QC): 4 Wheel 150 ft (QC): 4 Type of Wheelchair: Manual Treatments Pt slowly propels WCH to room to transfer back to bed. Pt SPT from WCH to EOB then EOB to Supine at Min A to lift LE into bed. Pt positioned in bed at end of tx with all needs met. Assessment Current Status: Good Progress Pt able to propel WCH to room with Min A for turns/guidance. Pt still report pain with transfers and ambulation so Xray being taken. PT Short Term Goals Short Term Goals Time Frame: Jan 11, 2017 Gait (FIM): 2 Distance (FIM): 5=735-91 ft Wheelchair Distance: 150' PT Switchboard Operator Assistant Goals Switchboard Operator Assistant Goals PT Residential Goals Time Frame: Jan 25, 2017 Transfers (B,C,W/C) (FIM): 6 Sit to Lying (QC): 6 Lying-Sitting on Side/Bed(QC): 6 Sit to Stand (QC): 6 Rollin Roll Left to Right (QC): 6 Chair/Shs-fk-Rapnw Xfer(QC): 6 Car Transfer (QC): 6 Does the Patient Walk: Yes Gait (FIM): 6 Gait distance (FIM): 3=150 ft Walk 10 feet (QC): 6 Walk 10ft-Uneven Surface(QC): 6 Walk 50ft with 2 Turns (QC): 6 Walk 150 ft (QC): 6 Gait Assistive Device: Cane Small Base Quad (or 1 handed walker) Does the Pt use WC or Scooter?: No Stairs (FIM): 2 # of Steps: 4 1 Step (curb) (QC): 5 4 Steps (QC): 5 12 Steps (QC): 0 (dash) Picking up an Object (QC): 5 PT Plan Problem List Problem List: Activity Tolerance, Functional Strength, Safety, Balance, Gait, Transfer, Bed Mobility Treatment/Plan Treatment Plan: Continue Plan of Care Treatment Plan: Bed Mobility, Education, Functional Activity Tacho, Functional Strength, Group Therapy, Gait, Safety, Therapeutic Exercise, Transfers Treatment Duration: Jan 25, 2017 Frequency: At least 5 of 7 days/Wk (IRF) Estimated Hrs Per Day: 1.5 hours per day Patient and/or Family Agrees t: Yes Safety Risks/Education Patient Education: Gait Training, Transfer Techniques, Correct Positioning, Safety Issues Teaching Recipient: Patient Teaching Methods: Discussion Response to Teaching: Verbalize Understanding Time/GCodes Time In: 1400 Time Out: 1430 Total Billed Treatment Time: 30 Total Billed Treatment 1, WCH (20m) & FA (10m) VINNY COSME PTA Jan 10, 2017 15:59
[2017-01-10 17:52] VITALS: BP 100/60
--- NOTE | 2017-01-10 18:30 | Diagnostic Imaging Report ---
EXAMINATION: AP view of the pelvis and two views of the left hip. INDICATION: Left hip fracture. FINDINGS: Bilateral replacement is seen. There is an oblique fracture through the subtrochanteric region of the left hip similar to the 01/01/2017 exam. There is minimal displacement seen at about 9 mm. The findings are similar to 01/01/17. Degenerative changes around the SI joints and significant sclerosis around the lumbosacral junction are noted. This could be in part related to degenerative changes and superimposed bone grafting. Lower lumbar spine posterior fusion hardware and disc cage are seen. IMPRESSION: Unchanged minimally displaced oblique subtrochanteric fracture of the left femur similar to 01/01/2017 findings. Dictated by: Dictated on workstation # [id number]
[2017-01-10] MEDS: ALFUZOSIN HCL 10 MG TAB (UROXATRAL) PO SCH (18:58)
[2017-01-10] MEDS: TEMAZEPAM 15 MG (RESTORIL) CAP PO SCH (21:10)
[2017-01-10] MEDS: lisINopril 20 MG (ZESTRIL) TAB PO SCH (21:11)
[2017-01-11] MEDS: HYDROcodone/APAP 10 MG/325 MG (LORTAB) TAB PO PRN ×4 (01:10→21:02)
[2017-01-11 05:31] VITALS: BP 97/55
[2017-01-11] MEDS: METOCLOPRAMIDE 10 MG (REGLAN) TAB PO SCH ×3 (06:18→16:24)
[2017-01-11] MEDS: PANTOPRAZOLE 40 MG (PROTONIX) TAB PO SCH (06:18)
[2017-01-11] MEDS: LEVOTHYROXINE 50 MCG (LEVOTHROID) TAB PO SCH (06:18)
[2017-01-11] MEDS: OMEGA 3 (FISH OIL) 1000 MG CAP PO SCH ×2 (06:18→16:24)
[2017-01-11] MEDS: BETHANECHOL 25 MG (URECHOLINE) TAB PO SCH ×4 (06:18→21:01)
--- NOTE | 2017-01-11 07:35 | Progress Note (SOAP) ---
Subjective Date Seen by Provider: Jan 11, 2017 Time Seen by Provider: 07:15 Subjective/Events-last exam Abeba reported increase amount of pain to left hip, indicated it occurred with transferring out of bed. New personal helping with transfer and created increase discomfort to the left hip region Extremely sore and tender for a good 24 hours, was more difficult with wt bearing. currently has improved, still pain with gentle ROM. Over all has improved. Review of Systems General: No Chills, No Night Sweats, No Fatigue, No Malaise, No Appetite, No Other HEENT: No Head Aches, No Visual Changes, No Eye Pain, No Ear Pain, No Dysphasia , No Sinus Congestion, No Post Nasal Drip, No Sore Throat, No Other Pulmonary: No Dyspnea, No Cough, No Pleuritic Chest Pain, Other (hx of lobecotomy ) Cardiovascular: No: Chest Pain, Palpitations, Orthopnea, Paroxysmal Noc. Dyspnea, Edema, Lt Headedness, Other Gastrointestinal: No: Nausea, Vomiting, Abdominal Pain, Diarrhea, Constipation , Melena, Hematochezia, Other Genitourinary: No Dysuria, No Frequency, No Incontinence, No Hematuria, No Retention, No Other Musculoskeletal: other, neck pain, shoulder pain (left humerous fracture), arm pain, back pain, hand pain, leg pain (left periprothesis fracture), foot pain Neurological: Weakness Objective Exam Vital Signs Date Time Temp Pulse Resp B/P (MAP) Pulse Ox O2 Delivery O2 Flow Rate FiO2 01/11/17 05:31 97.5 64 18 97/55 (69) 93 Room Air 01/10/17 17:52 98.7 71 16 100/60 (73) 93 Room Air 01/10/17 10:40 97.8 92 100/56 (71) Capillary Refill : Less Than 3 Seconds General Appearance: No Apparent Distress HEENT: PERRL/EOMI Neck: Normal Inspection, Supple Respiratory: Chest Non Tender, Decreased Breath Sounds Cardiovascular: Regular Rate, Rhythm Gastrointestinal: normal bowel sounds Extremity: Non Tender, Other (pain with IR and ER of left hip. Neurovascular intact to left hip and leg, including left arm, pain in shoulder at sight of proximal humerous fracture) Neurologic/Psychiatric: Alert, Oriented x3 Skin: Normal Color Results Lab Microbiology 01/05/17 Urine Culture - Final, Complete NO GROWTH Assessment/Plan Assessment/Plan Assess & Plan/Chief Complaint Left Proximal Humerus fracture Left periprosthetic fracture hx of lung CA Urinary retention. Plan: Gentle with legs together on transferring. Continue sling Consider lidoderm patch for shoulder. Consider NSAIDS for pain control. Xray yesterday demonstrated no new movement in fracture site of left hip need to follow up in office in 4-5 weeks for repeat xray Continue WT as tolerated. PT/OT may want to trial microbid, ceftin or amoxil is horn needs to be indwell for more than a couple days to protect implant, especially in immune comp. patient. With previous healing issues, and cancer. Final Diagnosis Same Clinical Quality Measures DVT/VTE Risk/Contraindication: Risk Factor Score Per Nursin RFS Level Per Nursing on Admit: 4+=Very High REBECCA NAJERA Jan 11, 2017 07:35
[2017-01-11] MEDS: CLOPIDOGREL 75 MG (PLAVIX) TABLET PO SCH (09:18)
[2017-01-11] MEDS: amLODIPine 10 MG (NORVASC) TAB PO SCH (09:19)
[2017-01-11] MEDS: DOCUSATE SODIUM 100 MG (COLACE) CAP PO SCH ×2 (09:19→21:02)
[2017-01-11] MEDS: HYDROCHLOROTHIAZIDE 25 MG (HCTZ) TAB PO SCH (09:19)
[2017-01-11] MEDS: hydrOXYzine (VISTARIL) 25 MG CAP PO SCH ×4 (09:19→21:01)
[2017-01-11] MEDS: PYRIDOXINE (VITAMIN B-6) 50 MG TABLET PO SCH (09:19)
[2017-01-11] MEDS: LACTULOSE SYRUP 10GM/15ML (ENULOSE) 30ML UDC PO SCH ×2 (09:20→21:03)
--- NOTE | 2017-01-11 10:11 | Physical Therapy Daily Note ---
PT Daily Note-Current Subjective Pt. states she has had more trouble walking and moving past couple days. Shared her history of cancer not only in her lung, but also her thumb and lip and lung. Pt. says she questions whether it has spread Pain Numeric Pain Scale: 8 Location: Left Location Body Site: Hip Pain Description: Ache Mental Status Patient Orientation: Normal For Age Attachments: Silva Catheter Transfers Functional [place] Measure 0=Not Assessed/NA 4=Minimal Assistance 1=Total Assistance 5=Supervision or Setup 2=Maximal Assistance 6=Modified [place] 3=Moderate Assistance 7=Complete IndependenceIRFPAI Quality Coding Scale 6 Independent with activity with or without an assistive device 5 Patient requires set up or clean up by helper. Patient completes activity by themselves 4 Supervision or touching assist (CGA). [place] provide cues , steadying assist 3 The helper provides less than half the effort to complete the activity 2 The helper provides more than half the effort to complete the activity 1 Dependent. The helper does all the effort to complete an activity 7 Patient refused to complete or attempt activity 9 The patient did not perform the activity before the current illness or injury 88 Not attempted due to Medical conditions or safety concerns Transfers (B, C, W/C) (FIM): 3 Scootin Rollin Supine to/from Sit: 3 Sit to/from Stand: 3 Weight Bearing Right Lower Extremity: Right Full Weight Bearing Left Lower Extremity: Left Weight Bearing/Tolerated with standby assistance Left UE in a sling Gait Training Does the Patient Walk?: Yes Gait (FIM): 1 Distance (FIM): 1=up to 49 ft (10ftx4) Gait Level of Assist: 4 Gait Persons Needed: 1 Gait Assistive Device: Walker Center-Hold small careful steps, difficulty lifting advancing LLE Exercises Supine Ex: Ankle pumps, Quad Set, Rolling, Glut sets, Heel Slides, Short Arc Quads, Scooting, Straight leg raise (assist), Hip abd/add Supine Reps: 15 Seated Therapy Exercises: Ankle pumps, Sit to stand, Long arc quads Seated Reps: 12 Assessment Current Status: Good Progress pain limits all mobility, slow getting started PT Short Term Goals Short Term Goals Time Frame: Jan 11, 2017 Gait (FIM): 2 Distance (FIM): 9=448-98 ft Wheelchair Distance: 150' PT Urologic Nurse Goals Half-Way Goals PT Urologic Nurse Goals Time Frame: Jan 25, 2017 Transfers (B,C,W/C) (FIM): 6 Sit to Lying (QC): 6 Lying-Sitting on Side/Bed(QC): 6 Sit to Stand (QC): 6 Rollin Roll Left to Right (QC): 6 Chair/Qud-rm-Ombyb Xfer(QC): 6 Car Transfer (QC): 6 Does the Patient Walk: Yes Gait (FIM): 6 Gait distance (FIM): 3=150 ft Walk 10 feet (QC): 6 Walk 10ft-Uneven Surface(QC): 6 Walk 50ft with 2 Turns (QC): 6 Walk 150 ft (QC): 6 Gait Assistive Device: Cane Small Base Quad (or 1 handed walker) Does the Pt use WC or Scooter?: No Stairs (FIM): 2 # of Steps: 4 1 Step (curb) (QC): 5 4 Steps (QC): 5 12 Steps (QC): 0 (dash) Picking up an Object (QC): 5 PT Plan Treatment/Plan Treatment Plan: Continue Plan of Care Treatment Plan: Bed Mobility, Education, Functional Activity Tacho, Functional Strength, Group Therapy, Gait, Safety, Therapeutic Exercise, Transfers Treatment Duration: Jan 25, 2017 Frequency: At least 5 of 7 days/Wk (IRF) Estimated Hrs Per Day: 1.5 hours per day Patient and/or Family Agrees t: Yes Safety Risks/Education Patient Education: Gait Training, Transfer Techniques, Correct Positioning, Disease Process, Safety Issues Teaching Recipient: Patient Teaching Methods: Demonstration, Discussion Response to Teaching: Verbalize Understanding, Return Demonstration, Reinforcement Needed Time/GCodes Time In: 900 Time Out: 1000 Total Billed Treatment Time: 60 Total Billed Treatment 1,FA25m,GT20m,EX15m G Codes Necessary: AYLA Sherman [employer] HEAD INSPECTOR Jan 11, 2017 10:11
--- NOTE | 2017-01-11 11:40 | Occupational Ther Daily Note ---
OT Current Status-Daily Note Subjective Pt in recliner at beginning of tx. Agreeable to therapy. Rated pain in hip at 8/ 10 during therapy, nurse notified. Appearance Alert, cooperative. Mental Status/Objective Functional [place] Measure 0=Not Assessed/NA 4=Minimal Assistance 1=Total Assistance 5=Supervision or Setup 2=Maximal Assistance 6=Modified [place] 3=Moderate Assistance 7=Complete [place] ADL-Treatment All ADLs done while in recliner due to pt's pain level. Functional [place] Measure 0=Not Assessed/NA 4=Minimal Assistance 1=Total Assistance 5=Supervision or Setup 2=Maximal Assistance 6=Modified [place] 3=Moderate Assistance 7=Complete IndependenceIRFPAI Quality Coding Scale 6 Independent with activity with or without an assistive device 5 Patient requires set up or clean up by helper. Patient completes activity by themselves 4 Supervision or touching assist (CGA). [place] provide cues , steadying assist 3 The helper provides less than half the effort to complete the activity 2 The helper provides more than half the effort to complete the activity 1 Dependent. The helper does all the effort to complete an activity 7 Patient refused to complete or attempt activity 9 The patient did not perform the activity before the current illness or injury 88 Not attempted due to Medical conditions or safety concerns Grooming (FIM): 5 (Pt brushed teeth, washed face and hands, and combed hair with setup. ) Bathing (FIM): 3 (Pt sponge bathed in recliner, needing help to wash both lower legs, upper R arm, and bottom. ) Upper Body (FIM): 4 (Pt needed assist with R arm to doff pullover shirt, needed assist to pull down back when donning pullover shirt. ) Lower Body Dressing (FIM): 4 (Needed assist to thread catheter bag to remove underwear. Chose to not put on underwear. Min A to stand to remove underwear, also required several recovery breaks and multiple tries while attempting to stand. ) Other Treatment Pt able to do 7 upper body exercises for strengthening to improve transfers, completing 2 sets of 10 reps for each exercise. Pt also did 3 forearm and hand exercise on L arm, making sure to not move shoulder, completing 1 set of 10 reps. Pt in recliner, feet raised and all needs met at end of tx. Education OT Patient Education: Exercise program, Purpose of tx/functional activities, Reviewed precautions, Transfer techniques Teaching Recipient: Patient Teaching Methods: Demonstration, Discussion Response to Teaching: Verbalize Understanding, Return Demonstration, Reinforcement Needed OT Short Term Goals Short Term Goals Time Frame: Jan 11, 2017 Bathing(FIM): 4 Upper Body Dressing(FIM): 3 Lower Body Dressing(FIM): 3 Toileting(FIM): 3 Toilet/Commode Transfer(FIM): 4 Additional Short Term Goals: 2-Verbalize Understanding, 3-ImproveStrength/Tacho 1=Demonstrate adherence to instructed precautions during ADL tasks. 2=Patient will verbalize/demonstrate understanding of assistive devices/ modifications for ADL. 3=Patient will improve strength/tolerance for activity to enable patient to perform ADL's. OT Halfway Goals Msw Goals Time Frame: Jan 25, 2017 Eating (FIM): 6 Eating (QC): 6 Groomin Oral Hygiene (QC): 6 Bathing(FIM): 5 Shower/Bathe Self (QC): 5 Upper Body Dressing(FIM): 5 Upper Body Dressing (QC): 5 Lower Body Dressing(FIM): 5 Lower Body Dressing (QC): 5 On/Off Footwear (QC): 5 Toileting(FIM): 6 Toileting Hygiene (QC): 5 Toilet/Commode Transfer(FIM): 5 Toilet/Commode Transfer (QC): 5 Shower Transfer(FIM): 5 Additional Goals: 2-Verbalize Understanding, 3-ImproveStrength/Tacho 1=Demonstrate adherence to instructed precautions during ADL tasks. 2=Patient will verbalize/demonstrate understanding of assistive devices/ modifications for ADL. 3=Patient will improve strength/tolerance for activity to enable patient to perform ADL's. OT Education/Plan Problem List/Assessment Pt would benefit from skilled OT to increase her independence in basic self care to allow her to safely return to her home and to decrease caregiver burden. Discharge Recommendations Plan/Recommendations: Continue POC Treatment Plan/Plan of Care Patient would benefit from OT for education, treatment and training to promote independence in ADL's, mobility, safety and/or upper extremity function for ADL' s. Plan of Care: ADL Retraining, Functional Mobility, Group Exercise/Act as Ind ( education, exercise, funct activity, activ tolerance, ), UE Funct Exercise/Act, UE Neuromus Re-Ed/Coord Treatment Duration: Jan 25, 2017 Frequency: At least 5 of 7 days/Wk (IRF) Estimated Hrs Per Day: 1.5 hours per day Agreement: Yes Rehab Potential: Good Time/GCodes Start Time: 10:30 Stop Time: 11:30 Total Time Billed (hr/min): 60 Billed Treatment Time visit, ADL 40 minutes, exercise 20 minutes YAMILET JERONIMO OT Jan 11, 2017 11:39
--- NOTE | 2017-01-11 14:29 | Therapy Group Daily Note ---
Therapy Daily Group Note Patient Education Topic Home Safety, Energy Cons, Other List Below (relaxation techniques) Exercises LE Seated Exercise, UE Exercise, Other (relaxation exercises) Other/Notes Pt. attended group PT OT session. Pt. in WC with min to mod assist for TRFs in out WC and bed . Pt. was friendly, participated in introduction and joined conversation re: how she likes to relax as well as her own methods and ways of saving energy at home in daily life. Pt. participated well in seated U&L extremity ther ex. In room after Rx in bed with charles at hand and needs met Start Time: 13:00 Stop Time: 14:10 Total Billed Treatment Time: 70 Total Billed Treatment 1,GRP AYLA MENDEZ OPERATOR RECEPTIONIST Jan 11, 2017 14:29 YAMILET JERONIMO OT Jan 11, 2017 15:46
[2017-01-11] MEDS: ALFUZOSIN HCL 10 MG TAB (UROXATRAL) PO SCH (17:38)
[2017-01-11 18:00] VITALS: BP 109/65
[2017-01-11] MEDS: TEMAZEPAM 15 MG (RESTORIL) CAP PO SCH (21:01)
[2017-01-11] MEDS: lisINopril 20 MG (ZESTRIL) TAB PO SCH (21:01)
[2017-01-12] MEDS: HYDROcodone/APAP 10 MG/325 MG (LORTAB) TAB PO PRN ×5 (02:06→20:14)
[2017-01-12 05:00] VITALS: BP 107/64
[2017-01-12] MEDS: PANTOPRAZOLE 40 MG (PROTONIX) TAB PO SCH (06:07)
[2017-01-12] MEDS: LEVOTHYROXINE 50 MCG (LEVOTHROID) TAB PO SCH (06:07)
[2017-01-12] MEDS: OMEGA 3 (FISH OIL) 1000 MG CAP PO SCH ×2 (06:07→17:11)
[2017-01-12] MEDS: METOCLOPRAMIDE 10 MG (REGLAN) TAB PO SCH ×3 (06:07→17:11)
[2017-01-12] MEDS: BETHANECHOL 25 MG (URECHOLINE) TAB PO SCH ×4 (06:07→20:14)
[2017-01-12] MEDS: DOCUSATE SODIUM 100 MG (COLACE) CAP PO SCH ×2 (08:24→20:14)
[2017-01-12] MEDS: HYDROCHLOROTHIAZIDE 25 MG (HCTZ) TAB PO SCH (08:24)
[2017-01-12] MEDS: LACTULOSE SYRUP 10GM/15ML (ENULOSE) 30ML UDC PO SCH ×2 (08:24→20:14)
[2017-01-12] MEDS: PYRIDOXINE (VITAMIN B-6) 50 MG TABLET PO SCH (08:24)
[2017-01-12] MEDS: amLODIPine 10 MG (NORVASC) TAB PO SCH (08:24)
[2017-01-12] MEDS: hydrOXYzine (VISTARIL) 25 MG CAP PO SCH ×4 (08:24→20:14)
--- NOTE | 2017-01-12 12:48 | Physical Therapy Daily Note ---
PT Daily Note-Current Subjective Pt. in bed and agrees to therapy. Pt. denies pain at present time. Mental Status Patient Orientation: Person, Place, Time, Situation Transfers Functional [place] Measure 0=Not Assessed/NA 4=Minimal Assistance 1=Total Assistance 5=Supervision or Setup 2=Maximal Assistance 6=Modified [place] 3=Moderate Assistance 7=Complete IndependenceIRFPAI Quality Coding Scale 6 Independent with activity with or without an assistive device 5 Patient requires set up or clean up by helper. Patient completes activity by themselves 4 Supervision or touching assist (CGA). [place] provide cues , steadying assist 3 The helper provides less than half the effort to complete the activity 2 The helper provides more than half the effort to complete the activity 1 Dependent. The helper does all the effort to complete an activity 7 Patient refused to complete or attempt activity 9 The patient did not perform the activity before the current illness or injury 88 Not attempted due to Medical conditions or safety concerns Transfers (B, C, W/C) (FIM): 4 Supine to/from Sit: 4 Sit to/from Stand: 4 Weight Bearing Right Lower Extremity: Right Full Weight Bearing Left Lower Extremity: Left Weight Bearing/Tolerated with standby assistance Left UE in a sling Gait Training Does the Patient Walk?: Yes Gait (FIM): 1 Distance (FIM): 1=up to 49 ft Distance: x 10 ft, x 15 ft Gait Level of Assist: 4 Gait Persons Needed: 1 Gait Assistive Device: FWW very small steps, slow gait speed but no LOB Treatments gait and transfers Assessment Current Status: Good Progress Pt. was slow but steady with gait, although fatigues quickly in the LE's. Pt. up in bedside chair post session with call light and all needs met. PT Short Term Goals Short Term Goals Time Frame: Jan 11, 2017 Gait (FIM): 2 Distance (FIM): 5=504-58 ft Wheelchair Distance: 150' PT Wound Treatment Rn Goals Usp Goals PT Wound Treatment Rn Goals Time Frame: Jan 25, 2017 Transfers (B,C,W/C) (FIM): 6 Sit to Lying (QC): 6 Lying-Sitting on Side/Bed(QC): 6 Sit to Stand (QC): 6 Rollin Roll Left to Right (QC): 6 Chair/Ikm-rt-Tsaqk Xfer(QC): 6 Car Transfer (QC): 6 Does the Patient Walk: Yes Gait (FIM): 6 Gait distance (FIM): 3=150 ft Walk 10 feet (QC): 6 Walk 10ft-Uneven Surface(QC): 6 Walk 50ft with 2 Turns (QC): 6 Walk 150 ft (QC): 6 Gait Assistive Device: Cane Small Base Quad (or 1 handed walker) Does the Pt use WC or Scooter?: No Stairs (FIM): 2 # of Steps: 4 1 Step (curb) (QC): 5 4 Steps (QC): 5 12 Steps (QC): 0 (dash) Picking up an Object (QC): 5 PT Plan Treatment/Plan Treatment Plan: Continue Plan of Care Treatment Plan: Bed Mobility, Education, Functional Activity Tacho, Functional Strength, Group Therapy, Gait, Safety, Therapeutic Exercise, Transfers Treatment Duration: Jan 25, 2017 Frequency: At least 5 of 7 days/Wk (IRF) Estimated Hrs Per Day: 1.5 hours per day Patient and/or Family Agrees t: Yes Time/GCodes Time In: 1010 Time Out: 1025 Total Billed Treatment Time: 15 Total Billed Treatment 1, FA 15' FAVIO MOSS PT Jan 12, 2017 12:48
--- NOTE | 2017-01-12 13:21 | Progress Note-Hospitalist ---
Progress Note Progress Notes/Assess & Plan Date Seen 01/12/17 Time Seen by Provider: 12:30 Diagonsis/Assessment & Plan Insists in keeping catheter in place Dr Ochoa will see her on Saturday Pain is controlled and overall feels much better Rik with Dr Bae assessed the hip and told me everything is in place and no changes need to be made AFVSS, pleasant, improved, chronically ill RRR, CTAB except diminished in LLL No edema Assessment: Hip fracture Left humerus fracture h/o lung cancer right s/p resection Urinary retention Constipation Plan: IS Monitor pt Insists on catheter remaining and Dr Ochoa will see her Saturday GERDA ESPINO DO Jan 12, 2017 13:21
[2017-01-12] MEDS: ALFUZOSIN HCL 10 MG TAB (UROXATRAL) PO SCH (17:11)
[2017-01-12 18:25] VITALS: BP 114/62
[2017-01-12] MEDS: lisINopril 20 MG (ZESTRIL) TAB PO SCH (20:14)
[2017-01-12] MEDS: TEMAZEPAM 15 MG (RESTORIL) CAP PO SCH (20:14)
[2017-01-13] MEDS: HYDROcodone/APAP 10 MG/325 MG (LORTAB) TAB PO PRN ×4 (02:45→20:00)
[2017-01-13 05:09] VITALS: BP 110/68
[2017-01-13] MEDS: BETHANECHOL 25 MG (URECHOLINE) TAB PO SCH ×4 (06:16→21:20)
[2017-01-13] MEDS: METOCLOPRAMIDE 10 MG (REGLAN) TAB PO SCH ×3 (06:16→16:25)
[2017-01-13] MEDS: LEVOTHYROXINE 50 MCG (LEVOTHROID) TAB PO SCH (06:16)
[2017-01-13] MEDS: OMEGA 3 (FISH OIL) 1000 MG CAP PO SCH ×2 (06:16→16:25)
[2017-01-13] MEDS: PANTOPRAZOLE 40 MG (PROTONIX) TAB PO SCH (06:16)
[2017-01-13] MEDS: DOCUSATE SODIUM 100 MG (COLACE) CAP PO SCH ×2 (08:49→21:20)
[2017-01-13] MEDS: LACTULOSE SYRUP 10GM/15ML (ENULOSE) 30ML UDC PO SCH ×2 (08:49→21:20)
[2017-01-13] MEDS: hydrOXYzine (VISTARIL) 25 MG CAP PO SCH ×4 (08:50→21:20)
[2017-01-13] MEDS: amLODIPine 10 MG (NORVASC) TAB PO SCH (08:50)
[2017-01-13] MEDS: HYDROCHLOROTHIAZIDE 25 MG (HCTZ) TAB PO SCH (08:50)
[2017-01-13] MEDS: PYRIDOXINE (VITAMIN B-6) 50 MG TABLET PO SCH (08:50)
[2017-01-13] MEDS: CLOPIDOGREL 75 MG (PLAVIX) TABLET PO SCH (08:50)
[2017-01-13] MEDS: ALFUZOSIN HCL 10 MG TAB (UROXATRAL) PO SCH (17:54)
[2017-01-13 18:00] VITALS: BP 114/69
[2017-01-13] MEDS: TEMAZEPAM 15 MG (RESTORIL) CAP PO SCH (21:20)
[2017-01-13] MEDS: lisINopril 20 MG (ZESTRIL) TAB PO SCH (21:20)
[2017-01-14] MEDS: HYDROcodone/APAP 10 MG/325 MG (LORTAB) TAB PO PRN ×5 (01:27→20:37)
[2017-01-14 05:58] VITALS: BP 123/71
[2017-01-14] MEDS: OMEGA 3 (FISH OIL) 1000 MG CAP PO SCH ×2 (06:12→17:05)
[2017-01-14] MEDS: PANTOPRAZOLE 40 MG (PROTONIX) TAB PO SCH (06:12)
[2017-01-14] MEDS: LEVOTHYROXINE 50 MCG (LEVOTHROID) TAB PO SCH (06:12)
[2017-01-14] MEDS: METOCLOPRAMIDE 10 MG (REGLAN) TAB PO SCH ×3 (06:13→17:05)
[2017-01-14] MEDS: BETHANECHOL 25 MG (URECHOLINE) TAB PO SCH ×4 (06:13→20:36)
[2017-01-14] MEDS: PYRIDOXINE (VITAMIN B-6) 50 MG TABLET PO SCH (08:46)
[2017-01-14] MEDS: DOCUSATE SODIUM 100 MG (COLACE) CAP PO SCH ×2 (08:46→20:36)
[2017-01-14] MEDS: amLODIPine 10 MG (NORVASC) TAB PO SCH (08:46)
[2017-01-14] MEDS: hydrOXYzine (VISTARIL) 25 MG CAP PO SCH ×4 (08:46→20:36)
[2017-01-14] MEDS: HYDROCHLOROTHIAZIDE 25 MG (HCTZ) TAB PO SCH (08:46)
[2017-01-14] MEDS: LACTULOSE SYRUP 10GM/15ML (ENULOSE) 30ML UDC PO SCH ×2 (08:47→20:37)
--- NOTE | 2017-01-14 09:05 | Physical Therapy Daily Note ---
PT Daily Note-Current Subjective Pt. states she had a dog visit this weekend and it really lifted her spirits. pt. states again that she has a lift recline chair at home is very use to using it and would really like to have one in her room. This ASSEMBLY PRESS OPERATOR discussed goals with pt. and Wed upcoming ,meeting etc Pain Numeric Pain Scale: 0-No Pain Mental Status Patient Orientation: Normal For Age Attachments: Silva Catheter, Other-See Comments (sling on left arm) Transfers Functional [place] Measure 0=Not Assessed/NA 4=Minimal Assistance 1=Total Assistance 5=Supervision or Setup 2=Maximal Assistance 6=Modified [place] 3=Moderate Assistance 7=Complete IndependenceIRFPAI Quality Coding Scale 6 Independent with activity with or without an assistive device 5 Patient requires set up or clean up by helper. Patient completes activity by themselves 4 Supervision or touching assist (CGA). [place] provide cues , steadying assist 3 The helper provides less than half the effort to complete the activity 2 The helper provides more than half the effort to complete the activity 1 Dependent. The helper does all the effort to complete an activity 7 Patient refused to complete or attempt activity 9 The patient did not perform the activity before the current illness or injury 88 Not attempted due to Medical conditions or safety concerns Transfers (B, C, W/C) (FIM): 4 Scootin Rollin Supine to/from Sit: 4 Sit to/from Stand: 4 Weight Bearing Right Lower Extremity: Right Full Weight Bearing Left Lower Extremity: Left Weight Bearing/Tolerated with standby assistance Left UE in a sling Gait Training Does the Patient Walk?: Yes Gait (FIM): 2 Distance (FIM): 2=065-64 ft (60ftx3) Gait Level of Assist: 2 Gait Persons Needed: 1 Gait Assistive Device: Walker Darrin Exercises Supine Ex: Ankle pumps, Quad Set, Rolling, Glut sets, Heel Slides (ssist), Short Arc Quads, Scooting, Straight leg raise (assist), Hip abd/add (assist) Supine Reps: 15 Seated Therapy Exercises: Sit to stand, Long arc quads Seated Reps: 15 Assessment Current Status: Good Progress PT Short Term Goals Short Term Goals Time Frame: Jan 11, 2017 Gait (FIM): 2 Distance (FIM): 2=339-46 ft Wheelchair Distance: 150' PT Longterm Goals Longterm Goals PT Bee Producer Goals Time Frame: Jan 25, 2017 Transfers (B,C,W/C) (FIM): 6 Sit to Lying (QC): 6 Lying-Sitting on Side/Bed(QC): 6 Sit to Stand (QC): 6 Rollin Roll Left to Right (QC): 6 Chair/Kbx-hg-Yvmdo Xfer(QC): 6 Car Transfer (QC): 6 Does the Patient Walk: Yes Gait (FIM): 6 Gait distance (FIM): 3=150 ft Walk 10 feet (QC): 6 Walk 10ft-Uneven Surface(QC): 6 Walk 50ft with 2 Turns (QC): 6 Walk 150 ft (QC): 6 Gait Assistive Device: Cane Small Base Quad (or 1 handed walker) Does the Pt use WC or Scooter?: No Stairs (FIM): 2 # of Steps: 4 1 Step (curb) (QC): 5 4 Steps (QC): 5 12 Steps (QC): 0 (dash) Picking up an Object (QC): 5 PT Plan Treatment/Plan Treatment Plan: Continue Plan of Care Treatment Plan: Bed Mobility, Education, Functional Activity Tacho, Functional Strength, Group Therapy, Gait, Safety, Therapeutic Exercise, Transfers Treatment Duration: Jan 25, 2017 Frequency: At least 5 of 7 days/Wk (IRF) Estimated Hrs Per Day: 1.5 hours per day Patient and/or Family Agrees t: Yes Safety Risks/Education Patient Education: Gait Training, Transfer Techniques, Correct Positioning, Disease Process, Safety Issues Teaching Recipient: Patient Teaching Methods: Demonstration, Discussion Response to Teaching: Verbalize Understanding, Return Demonstration, Reinforcement Needed Time/GCodes Time In: 800 Time Out: 900 Total Billed Treatment Time: 60 Total Billed Treatment 1,FA15m,GT25m,EX20m G Codes Necessary: No AYLA MENDEZ ASSEMBLY PRESS OPERATOR Jan 14, 2017 09:05
--- NOTE | 2017-01-14 11:51 | Progress Note-Urology ---
Progress Note-Urology Progress Notes/Assess & Plan Progress/Assessment & Plan PATIENT AGREABLE FOR TOV Final Diagnosis URINE RETENTION ZAHRA JEFF MD Jan 14, 2017 11:50 am
--- NOTE | 2017-01-14 13:02 | Physical Therapy Daily Note ---
PT Daily Note-Current Subjective Pt. agrees to Rx. States she is very proud of her progress and is looking in to possibly hiring help for when she returns home. Pain Numeric Pain Scale: 0-No Pain Transfers Functional [place] Measure 0=Not Assessed/NA 4=Minimal Assistance 1=Total Assistance 5=Supervision or Setup 2=Maximal Assistance 6=Modified [place] 3=Moderate Assistance 7=Complete IndependenceIRFPAI Quality Coding Scale 6 Independent with activity with or without an assistive device 5 Patient requires set up or clean up by helper. Patient completes activity by themselves 4 Supervision or touching assist (CGA). [place] provide cues , steadying assist 3 The helper provides less than half the effort to complete the activity 2 The helper provides more than half the effort to complete the activity 1 Dependent. The helper does all the effort to complete an activity 7 Patient refused to complete or attempt activity 9 The patient did not perform the activity before the current illness or injury 88 Not attempted due to Medical conditions or safety concerns in out bed min to mod assist LEs, sit to stand emphasis with multiple trials all SBA and cues Weight Bearing Right Lower Extremity: Right Full Weight Bearing Left Lower Extremity: Left Weight Bearing/Tolerated with standby assistance Left UE in a sling Gait Training Gait Assistive Device: Walker Darrin 60 ft x2 with CGA and slow, choppy but improved gait . Exercises Supine Ex: Ankle pumps, Quad Set, Rolling Supine Reps: 10 Assessment Current Status: Good Progress PT Short Term Goals Short Term Goals Time Frame: Jan 11, 2017 Gait (FIM): 2 Distance (FIM): 2=879-67 ft Wheelchair Distance: 150' PT Snf Goals Snf Goals PT Autocad Designer Goals Time Frame: Jan 25, 2017 Transfers (B,C,W/C) (FIM): 6 Sit to Lying (QC): 6 Lying-Sitting on Side/Bed(QC): 6 Sit to Stand (QC): 6 Rollin Roll Left to Right (QC): 6 Chair/Wzl-vy-Haflv Xfer(QC): 6 Car Transfer (QC): 6 Does the Patient Walk: Yes Gait (FIM): 6 Gait distance (FIM): 3=150 ft Walk 10 feet (QC): 6 Walk 10ft-Uneven Surface(QC): 6 Walk 50ft with 2 Turns (QC): 6 Walk 150 ft (QC): 6 Gait Assistive Device: Cane Small Base Quad (or 1 handed walker) Does the Pt use WC or Scooter?: No Stairs (FIM): 2 # of Steps: 4 1 Step (curb) (QC): 5 4 Steps (QC): 5 12 Steps (QC): 0 (dash) Picking up an Object (QC): 5 PT Plan Treatment/Plan Treatment Plan: Continue Plan of Care Treatment Plan: Bed Mobility, Education, Functional Activity Tacho, Functional Strength, Group Therapy, Gait, Safety, Therapeutic Exercise, Transfers Treatment Duration: Jan 25, 2017 Frequency: At least 5 of 7 days/Wk (IRF) Estimated Hrs Per Day: 1.5 hours per day Patient and/or Family Agrees t: Yes Safety Risks/Education Patient Education: Gait Training, Transfer Techniques Teaching Recipient: Patient Teaching Methods: Demonstration, Discussion Response to Teaching: Verbalize Understanding, Return Demonstration, Reinforcement Needed Time/GCodes Time In: 1230 Time Out: 1300 Total Billed Treatment Time: 30 Total Billed Treatment 1,GT20m,FA10m G Codes Necessary: AYLA Sherman FILTER WASHER AND PRESSER Jan 14, 2017 13:02
--- NOTE | 2017-01-14 14:51 | Occupational Ther Daily Note ---
OT Current Status-Daily Note Subjective Pt was in recliner at beginning of tx. Agreed to therapy. Some c/o pain in hip but not rated. Appearance Alert, cooperative. Mental Status/Objective Functional [place] Measure 0=Not Assessed/NA 4=Minimal Assistance 1=Total Assistance 5=Supervision or Setup 2=Maximal Assistance 6=Modified [place] 3=Moderate Assistance 7=Complete [place] ADL-Treatment Pt washed and groomed while in recliner. Functional [place] Measure 0=Not Assessed/NA 4=Minimal Assistance 1=Total Assistance 5=Supervision or Setup 2=Maximal Assistance 6=Modified [place] 3=Moderate Assistance 7=Complete IndependenceIRFPAI Quality Coding Scale 6 Independent with activity with or without an assistive device 5 Patient requires set up or clean up by helper. Patient completes activity by themselves 4 Supervision or touching assist (CGA). [place] provide cues , steadying assist 3 The helper provides less than half the effort to complete the activity 2 The helper provides more than half the effort to complete the activity 1 Dependent. The helper does all the effort to complete an activity 7 Patient refused to complete or attempt activity 9 The patient did not perform the activity before the current illness or injury 88 Not attempted due to Medical conditions or safety concerns Grooming (FIM): 5 (Pt brushed teeth, combed hair, and washed face and hands while seated in recliner with setup. ) Bathing (FIM): 5 (Pt sponge bathed 3.5/4 parts while in recliner with setup. Had difficulty washing upper R arm. Chose to not wash below waist until catheter was taken out. ) Bathing Location: L Arm, R Arm, Chest, Abdomen Upper Body (FIM): 4 (Pt able to doff shirt with no assist but needed help pulling down back when donning shirt.) Other Treatment Pt able to recall and return demonstration of 7/7 upper body exercise by completing 2 sets of 10 reps on R arm while wearing 1# wrist weight to increase strength to improve transfers. Pt able to do 3 arm exercises with L arm, making sure to not move shoulder. Pt completed tabletop activity of ROM arc, on small 2X and medium arc, with R arm to improve ROM for improved ADLs. Pt c/o pulling in shoulder when doing the medium arc so arc was adjusted back to small. Pt was in recliner at end of tx with all needs met. Education OT Patient Education: Exercise program, Progress toward Goal/Update tx plan, Purpose of tx/functional activities, Reviewed precautions Teaching Recipient: Patient Teaching Methods: Demonstration, Discussion Response to Teaching: Verbalize Understanding, Return Demonstration, Reinforcement Needed OT Short Term Goals Short Term Goals Time Frame: Jan 11, 2017 Bathing(FIM): 4 Upper Body Dressing(FIM): 3 Lower Body Dressing(FIM): 3 Toileting(FIM): 3 Toilet/Commode Transfer(FIM): 4 Additional Short Term Goals: 2-Verbalize Understanding, 3-ImproveStrength/Tacho 1=Demonstrate adherence to instructed precautions during ADL tasks. 2=Patient will verbalize/demonstrate understanding of assistive devices/ modifications for ADL. 3=Patient will improve strength/tolerance for activity to enable patient to perform ADL's. OT Usp Goals Watch Technician Goals Time Frame: Jan 25, 2017 Eating (FIM): 6 Eating (QC): 6 Groomin Oral Hygiene (QC): 6 Bathing(FIM): 5 Shower/Bathe Self (QC): 5 Upper Body Dressing(FIM): 5 Upper Body Dressing (QC): 5 Lower Body Dressing(FIM): 5 Lower Body Dressing (QC): 5 On/Off Footwear (QC): 5 Toileting(FIM): 6 Toileting Hygiene (QC): 5 Toilet/Commode Transfer(FIM): 5 Toilet/Commode Transfer (QC): 5 Shower Transfer(FIM): 5 Additional Goals: 2-Verbalize Understanding, 3-ImproveStrength/Tacho 1=Demonstrate adherence to instructed precautions during ADL tasks. 2=Patient will verbalize/demonstrate understanding of assistive devices/ modifications for ADL. 3=Patient will improve strength/tolerance for activity to enable patient to perform ADL's. OT Education/Plan Problem List/Assessment Pt would benefit from skilled OT to increase her independence in basic self care to allow her to safely return to her home and to decrease caregiver burden. Discharge Recommendations Plan/Recommendations: Continue POC Treatment Plan/Plan of Care Patient would benefit from OT for education, treatment and training to promote independence in ADL's, mobility, safety and/or upper extremity function for ADL' s. Plan of Care: ADL Retraining, Functional Mobility, Group Exercise/Act as Ind ( education, exercise, funct activity, activ tolerance, ), UE Funct Exercise/Act, UE Neuromus Re-Ed/Coord Treatment Duration: Jan 25, 2017 Frequency: At least 5 of 7 days/Wk (IRF) Estimated Hrs Per Day: 1.5 hours per day Agreement: Yes Rehab Potential: Good Time/GCodes Start Time: 11:00 Stop Time: 12:00 Total Time Billed (hr/min): 60 Billed Treatment Time visit, ADL 30 minutes, exercise 30 minutes YAMILET JERONIMO OT Jan 14, 2017 14:51
--- NOTE | 2017-01-14 15:04 | Occupational Ther Daily Note ---
OT Current Status-Daily Note Subjective Pt in bed at beginning of tx. Agreed to therapy. Had hip pain intermittently during tx with movement but didn't rate. Appearance Alert, cooperative. Mental Status/Objective Functional [place] Measure 0=Not Assessed/NA 4=Minimal Assistance 1=Total Assistance 5=Supervision or Setup 2=Maximal Assistance 6=Modified [place] 3=Moderate Assistance 7=Complete [place] ADL-Treatment Pt wanted to wash after catheter removed and sponge bathed while supine in bed. Functional [place] Measure 0=Not Assessed/NA 4=Minimal Assistance 1=Total Assistance 5=Supervision or Setup 2=Maximal Assistance 6=Modified [place] 3=Moderate Assistance 7=Complete IndependenceIRFPAI Quality Coding Scale 6 Independent with activity with or without an assistive device 5 Patient requires set up or clean up by helper. Patient completes activity by themselves 4 Supervision or touching assist (CGA). [place] provide cues , steadying assist 3 The helper provides less than half the effort to complete the activity 2 The helper provides more than half the effort to complete the activity 1 Dependent. The helper does all the effort to complete an activity 7 Patient refused to complete or attempt activity 9 The patient did not perform the activity before the current illness or injury 88 Not attempted due to Medical conditions or safety concerns Bathing (FIM): 1 (Pt washed 1/5 parts bathed, not being able to reach when sponge bathing while supine in bed. ) Bathing Location: L Upper Leg, R Upper Leg, L Lower Leg (including foot), R Lower Leg (including foot), Perineal Area Lower Body Dressing (FIM): 1 (Pt needed assist to thread both feet into underwear and help hike L side over hip. Pt was able to hike R side over hip while standing. Center hold walker) Pt was able to transfer from supine to sit EOB with SBA. Pt stood with SBA to manage clothing (needed assist to manage clothing), walker. Pt able to transfer from EOB to supine with mod assist to place feet back into bed. Other Treatment Pt completed 7 arm exercises for shoulder, elbow, forearm, and wrist on R arm completing 1 set of 10 reps and 3 exercises for forearm and wrist on L arm completing 2 sets of 10 reps to increase strengthening for improved transfers. Pt used red foam block to complete 2 hand exercises on each hand completing 2 sets of 10 reps each. Education OT Patient Education: Exercise program, Progress toward Goal/Update tx plan, Purpose of tx/functional activities, Reviewed precautions, Transfer techniques Teaching Recipient: Patient Teaching Methods: Demonstration, Discussion Response to Teaching: Verbalize Understanding, Return Demonstration, Reinforcement Needed OT Short Term Goals Short Term Goals Time Frame: Jan 11, 2017 Bathing(FIM): 4 Upper Body Dressing(FIM): 3 Lower Body Dressing(FIM): 3 Toileting(FIM): 3 Toilet/Commode Transfer(FIM): 4 Additional Short Term Goals: 2-Verbalize Understanding, 3-ImproveStrength/Tacho 1=Demonstrate adherence to instructed precautions during ADL tasks. 2=Patient will verbalize/demonstrate understanding of assistive devices/ modifications for ADL. 3=Patient will improve strength/tolerance for activity to enable patient to perform ADL's. OT Tile Fitter Goals Group Home Goals Time Frame: Jan 25, 2017 Eating (FIM): 6 Eating (QC): 6 Groomin Oral Hygiene (QC): 6 Bathing(FIM): 5 Shower/Bathe Self (QC): 5 Upper Body Dressing(FIM): 5 Upper Body Dressing (QC): 5 Lower Body Dressing(FIM): 5 Lower Body Dressing (QC): 5 On/Off Footwear (QC): 5 Toileting(FIM): 6 Toileting Hygiene (QC): 5 Toilet/Commode Transfer(FIM): 5 Toilet/Commode Transfer (QC): 5 Shower Transfer(FIM): 5 Additional Goals: 2-Verbalize Understanding, 3-ImproveStrength/Tacho 1=Demonstrate adherence to instructed precautions during ADL tasks. 2=Patient will verbalize/demonstrate understanding of assistive devices/ modifications for ADL. 3=Patient will improve strength/tolerance for activity to enable patient to perform ADL's. OT Education/Plan Problem List/Assessment Pt would benefit from skilled OT to increase her independence in basic self care to allow her to safely return to her home and to decrease caregiver burden. Discharge Recommendations Plan/Recommendations: Continue POC Treatment Plan/Plan of Care Patient would benefit from OT for education, treatment and training to promote independence in ADL's, mobility, safety and/or upper extremity function for ADL' s. Plan of Care: ADL Retraining, Functional Mobility, Group Exercise/Act as Ind ( education, exercise, funct activity, activ tolerance, ), UE Funct Exercise/Act, UE Neuromus Re-Ed/Coord Treatment Duration: Jan 25, 2017 Frequency: At least 5 of 7 days/Wk (IRF) Estimated Hrs Per Day: 1.5 hours per day Agreement: Yes Rehab Potential: Good Time/GCodes Start Time: 13:45 Stop Time: 14:15 Total Time Billed (hr/min): 30 Billed Treatment Time visit, ADL 15 minutes, exercise 15 minutes YAMILET JERONIMO OT Jan 14, 2017 15:04
--- NOTE | 2017-01-14 16:40 | PM & R (SOAP) Progress Note ---
Subjective Time Seen by Provider: 16:30 Subjective/Events-last exam Patient was seen in her room this afternoon Discussed case with RN Silva out and trial of voiding begun Appreciate Ortho consult Patient CGA for gait with gait aide Review of Systems Musculoskeletal: arm pain, leg pain Objective Exam Last Set of Vital Signs Vital Signs Date Time Temp Pulse Resp B/P (MAP) Pulse Ox O2 Delivery O2 Flow Rate FiO2 01/14/17 05:58 98.2 60 20 123/71 (88) 94 Room Air Capillary Refill : Less Than 3 Seconds I&O Intake and Output 01/14/17 00:00 Intake Total 700 ml Output Total 1550 ml Balance -850 ml Intake Oral 700 ml Output Urine Total 1550 ml General: Alert, Oriented X3, Cooperative, No Acute Distress HEENT: Atraumatic, PERRLA, EOMI, Mucous Memb Moist/[place] Neck: Supple, No JVD Lungs: Clear to Auscultation Heart: Regular Rate Abdomen: Normal Bowel Sounds, Soft, No Tenderness Extremities: No Edema, Other (left arm in sling) Neuro: Other (left HP) Results Lab Microbiology 01/05/17 Urine Culture - Final, Complete NO GROWTH Assessment/Plan Assessment fall with resulting left humerus frx and left periprosthetic hip frx managed with sling for LUE and WBAT for 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
[2017-01-14] MEDS: ALFUZOSIN HCL 10 MG TAB (UROXATRAL) PO SCH (17:05)
[2017-01-14 18:26] VITALS: BP 112/65
[2017-01-14] MEDS: lisINopril 20 MG (ZESTRIL) TAB PO SCH (20:37)
[2017-01-14] MEDS: TEMAZEPAM 15 MG (RESTORIL) CAP PO SCH (20:37)
[2017-01-15] MEDS: HYDROcodone/APAP 10 MG/325 MG (LORTAB) TAB PO PRN ×5 (00:32→21:22)
[2017-01-15 05:14] VITALS: BP 110/73
[2017-01-15] MEDS: PANTOPRAZOLE 40 MG (PROTONIX) TAB PO SCH (06:10)
[2017-01-15] MEDS: OMEGA 3 (FISH OIL) 1000 MG CAP PO SCH ×2 (06:10→17:02)
[2017-01-15] MEDS: BETHANECHOL 25 MG (URECHOLINE) TAB PO SCH ×3 (06:10→17:02)
[2017-01-15] MEDS: METOCLOPRAMIDE 10 MG (REGLAN) TAB PO SCH ×3 (06:10→17:02)
[2017-01-15] MEDS: LEVOTHYROXINE 50 MCG (LEVOTHROID) TAB PO SCH (06:10)
[2017-01-15] MEDS: LACTULOSE SYRUP 10GM/15ML (ENULOSE) 30ML UDC PO SCH ×3 (08:36→21:23)
[2017-01-15] MEDS: amLODIPine 10 MG (NORVASC) TAB PO SCH (08:36)
[2017-01-15] MEDS: PYRIDOXINE (VITAMIN B-6) 50 MG TABLET PO SCH (08:36)
[2017-01-15] MEDS: CLOPIDOGREL 75 MG (PLAVIX) TABLET PO SCH (08:36)
[2017-01-15] MEDS: HYDROCHLOROTHIAZIDE 25 MG (HCTZ) TAB PO SCH (08:36)
[2017-01-15] MEDS: DOCUSATE SODIUM 100 MG (COLACE) CAP PO SCH ×2 (08:36→21:23)
[2017-01-15] MEDS: hydrOXYzine (VISTARIL) 25 MG CAP PO SCH ×4 (08:36→21:23)
--- NOTE | 2017-01-15 09:12 | PM & R (SOAP) Progress Note ---
Subjective Time Seen by Provider: 08:00 Subjective/Events-last exam Patient was seen in her oom this AM Patient Min to mod assist for transfers Limiting factor towards progress is left arm in sling Discussed case with Nursing IT errol be difficult for patient to return home alone with [facility] unless family able to help due to duration of need for left arm sling.Silva is out and patient is voiding. Review of Systems Musculoskeletal: arm pain, leg pain Objective Exam Last Set of Vital Signs Vital Signs Date Time Temp Pulse Resp B/P (MAP) Pulse Ox O2 Delivery O2 Flow Rate FiO2 01/15/17 05:14 99.3 69 18 110/73 (85) 96 Room Air Capillary Refill : Less Than 3 Seconds I&O Intake and Output 01/15/17 00:00 Intake Total 1625 ml Output Total 1300 ml Balance 325 ml Intake Oral 1625 ml Output Urine Total 1300 ml # Bowel Movements 1 General: Alert, Oriented X3, Cooperative, No Acute Distress HEENT: Atraumatic, PERRLA, EOMI, Mucous Memb Moist/[place] Neck: Supple, No JVD Lungs: Clear to Auscultation Heart: Regular Rate Abdomen: Normal Bowel Sounds, Soft, No Tenderness Extremities: No Edema, Other (left arm in sling) Neuro: Other (left HP) Results Lab Microbiology 01/05/17 Urine Culture - Final, Complete NO GROWTH Assessment/Plan Assessment fall with resulting left humerus frx and left periprosthetic hip frx managed with sling for LUE and WBAT for 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 GERD on meds Constipation associated with vasovagal reaction s/p BM earlier this week Chronic Back pain with hx of Spinal surgery times 4 Hx of lung ca with lobectomy HTN controlled Low grade fever resolved with no growth on Urine culture-resolved Urinary retention currently being managed with meds and TOV-Silva out and patient voiding Plan Continue PT/OT Dr Najera has requested a formal Ortho consult-DR Jarvis assistant auditor has seen Monitor for any urinary retention with f/u with MAXWELL Ochoa prn Appreciate Dr Arita note Next Team Conference tomorrow 01-16-17-SW to follow-up re how much family support is available if patient is to return home Dr Leonardo covering my service from 01-16-17 [facility] 01-22-17 while I am away REBEKAH GRECO MD Jan 15, 2017 09:12
--- NOTE | 2017-01-15 09:34 | Physical Therapy Daily Note ---
PT Daily Note-Current Subjective Pt asleep in bed upon arrival. Pt slow to wake up but agrees to PT. Pain Numeric Pain Scale: 5-Moderate Pain Location: Left Location Body Site: Knee Pain Description: Ache Mental Status Patient Orientation: Person, Place, Time, Situation Transfers Functional [place] Measure 0=Not Assessed/NA 4=Minimal Assistance 1=Total Assistance 5=Supervision or Setup 2=Maximal Assistance 6=Modified [place] 3=Moderate Assistance 7=Complete IndependenceIRFPAI Quality Coding Scale 6 Independent with activity with or without an assistive device 5 Patient requires set up or clean up by helper. Patient completes activity by themselves 4 Supervision or touching assist (CGA). [place] provide cues , steadying assist 3 The helper provides less than half the effort to complete the activity 2 The helper provides more than half the effort to complete the activity 1 Dependent. The helper does all the effort to complete an activity 7 Patient refused to complete or attempt activity 9 The patient did not perform the activity before the current illness or injury 88 Not attempted due to Medical conditions or safety concerns Scootin Rollin Roll Left to Right (QC): 5 Supine to/from Sit: 5 Sit to/from Stand: 4 Sit to Stand (QC): 4 Weight Bearing Right Lower Extremity: Right Full Weight Bearing Left Lower Extremity: Left Weight Bearing/Tolerated with standby assistance Left UE in a sling Gait Training Does the Patient Walk?: Yes Distance (FIM): 3=150 ft Distance: 60' x3 Walk 10 feet (QC): 4 Walk 50 ft with 2 Turns(QC): 4 Walk 150 ft (QC): 4 Gait Level of Assist: 4 Gait Assistive Device: Walker Center-Hold Pt's gait is slow and choppy due to limitations with L side. Pt is steady, no LOB. Exercises Seated Therapy Exercises: Ankle pumps, Long arc quads, Hip flexion, Kicking activity Treatments Pt is slow to wake up so PT assists pt. Pt transfers from Supine to EOB at SBA then EOB to standing using FWW at [facility]. Pt ambulates in room and hallway using FWW at [facility]. Pt completes Seated Ex before returning to room to rest at end of tx in recliner with all needs met. Assessment Current Status: Good Progress Pt has improved with independence of transfers and ambulation although still struggles with walking distances. Pt cannot walk household distance yet nor ambulate stairs due to lack of strength. PT Short Term Goals Short Term Goals Time Frame: Jan 11, 2017 Gait (FIM): 2 Distance (FIM): 3=556-64 ft Wheelchair Distance: 150' PT Skilled Nursing Goals Skilled Nursing Goals PT Trichologist Goals Time Frame: Jan 25, 2017 Transfers (B,C,W/C) (FIM): 6 Sit to Lying (QC): 6 Lying-Sitting on Side/Bed(QC): 6 Sit to Stand (QC): 6 Rollin Roll Left to Right (QC): 6 Chair/[place]xs[place] Xfer(QC): 6 Car Transfer (QC): 6 Does the Patient Walk: Yes Gait (FIM): 6 Gait distance (FIM): 3=150 ft Walk 10 feet (QC): 6 Walk 10ft-Uneven Surface(QC): 6 Walk 50ft with 2 Turns (QC): 6 Walk 150 ft (QC): 6 Gait Assistive Device: Cane Small Base Quad (or 1 handed walker) Does the Pt use WC or Scooter?: No Stairs (FIM): 2 # of Steps: 4 1 Step (curb) (QC): 5 4 Steps (QC): 5 12 Steps (QC): 0 (dash) Picking up an Object (QC): 5 PT Plan Problem List Problem List: Activity Tolerance, Functional Strength, Gait Treatment/Plan Treatment Plan: Continue Plan of Care Treatment Plan: Bed Mobility, Education, Functional Activity Tacho, Functional Strength, Group Therapy, Gait, Safety, Therapeutic Exercise, Transfers Treatment Duration: Jan 25, 2017 Frequency: At least 5 of 7 days/Wk (IRF) Estimated Hrs Per Day: 1.5 hours per day Patient and/or Family Agrees t: Yes Safety Risks/Education Patient Education: Gait Training, Transfer Techniques, Correct Positioning, Safety Issues Teaching Recipient: Patient Teaching Methods: Discussion Response to Teaching: Verbalize Understanding Time/GCodes Time In: 805 Time Out: 905 Total Billed Treatment 1, GT x2 (30m), FA (15m) & EX (15m) VINNY COSME PTA Jan 15, 2017 09:34
[2017-01-15] MEDS: ONDANSETRON 8 MG (ZOFRAN) ORAL DISSOLVE TAB PO PRN ×2 (09:53→17:46)
--- NOTE | 2017-01-15 10:14 | Progress Note-Urology ---
Progress Note-Urology Progress Notes/Assess & Plan Progress/Assessment & Plan VOIDING WELL. SOME DYSURIA. SOME DIZZINESS. PLAN STOP FLOMAX AND DECREASE URECHOLINE TO TID AC Final Diagnosis URINE RETENTION ZAHRA JEFF MD Jan 15, 2017 10:14 am
--- NOTE | 2017-01-15 10:51 | Occupational Ther Daily Note ---
OT Current Status-Daily Note Subjective Pt in recliner at beginning of tx. Agreeable to therapy. Pain intermittently with movement but not rated. Pt did c/o dizziness, reported to nursing. Mental Status/Objective Functional [place] Measure 0=Not Assessed/NA 4=Minimal Assistance 1=Total Assistance 5=Supervision or Setup 2=Maximal Assistance 6=Modified [place] 3=Moderate Assistance 7=Complete [place] ADL-Treatment Pt stood from recliner with CHW and SBA, walked to bathroom with CHW and SBA. Pt stood at sink to wash face and neck, then sat on BSC to finish sponge bathing. Pt stood 4 times from BSC while bathing/grooming all with CHW and SBA. Pt had blood on back of L thigh, reported to nursing. Pt walked back to recliner with CHW and SBA and sat in recliner with SBA, reaching back to sit. Pt needs reminders to use center handle for CHW to maintain balance of walker. Functional [place] Measure 0=Not Assessed/NA 4=Minimal Assistance 1=Total Assistance 5=Supervision or Setup 2=Maximal Assistance 6=Modified [place] 3=Moderate Assistance 7=Complete IndependenceIRFPAI Quality Coding Scale 6 Independent with activity with or without an assistive device 5 Patient requires set up or clean up by helper. Patient completes activity by themselves 4 Supervision or touching assist (CGA). [place] provide cues , steadying assist 3 The helper provides less than half the effort to complete the activity 2 The helper provides more than half the effort to complete the activity 1 Dependent. The helper does all the effort to complete an activity 7 Patient refused to complete or attempt activity 9 The patient did not perform the activity before the current illness or injury 88 Not attempted due to Medical conditions or safety concerns Eating (FIM): 5 (Pt needs assist to open and hold some packages (butter container, but pt could get butter on knife and spread it) due to missing distal phalanx on L thumb. ) Grooming (FIM): 5 (Pt washed face and hands and brushed teeth at sink. Pt combed hair while seated in recliner. ) Bathing (FIM): 3 (Pt able to wash 7 parts, needing assist to wash part of R arm and both lower legs. Sponge bathed at sink while sitting on BSC. ) Bathing Location: L Arm, R Arm, L Upper Leg, R Upper Leg, Chest, Abdomen, Buttocks, Perineal Area Upper Body (FIM): 5 (Pt able to don and doff pullover shirt while seated with no assist. ) Toileting (FIM): 3 (Pt able to manage hygiene but needed assist to manage L side of clothing. ) Toilet/Commode Transfer (FIM): 5 (Pt able to transfer on and off BSC with CHW and SBA. ) Other Treatment Pt completed tabletop activity of removing and replacing graduated clothes pins with R UE to increase strength to improve transfers and ADLs. Pt in recliner with all needs met at end of tx. Education OT Patient Education: Progress toward Goal/Update tx plan, Purpose of tx/ functional activities, Transfer techniques Teaching Recipient: Patient Teaching Methods: Demonstration, Discussion Response to Teaching: Verbalize Understanding, Return Demonstration, Reinforcement Needed OT Short Term Goals Short Term Goals Time Frame: Jan 11, 2017 Bathing(FIM): 4 Upper Body Dressing(FIM): 3 Lower Body Dressing(FIM): 3 Toileting(FIM): 3 Toilet/Commode Transfer(FIM): 4 Additional Short Term Goals: 2-Verbalize Understanding, 3-ImproveStrength/Tacho 1=Demonstrate adherence to instructed precautions during ADL tasks. 2=Patient will verbalize/demonstrate understanding of assistive devices/ modifications for ADL. 3=Patient will improve strength/tolerance for activity to enable patient to perform ADL's. OT Welding Technician Goals Half-Way Goals Time Frame: Jan 25, 2017 Eating (FIM): 6 Eating (QC): 6 Groomin Oral Hygiene (QC): 6 Bathing(FIM): 5 Shower/Bathe Self (QC): 5 Upper Body Dressing(FIM): 5 Upper Body Dressing (QC): 5 Lower Body Dressing(FIM): 5 Lower Body Dressing (QC): 5 On/Off Footwear (QC): 5 Toileting(FIM): 6 Toileting Hygiene (QC): 5 Toilet/Commode Transfer(FIM): 5 Toilet/Commode Transfer (QC): 5 Shower Transfer(FIM): 5 Additional Goals: 2-Verbalize Understanding, 3-ImproveStrength/Tacho 1=Demonstrate adherence to instructed precautions during ADL tasks. 2=Patient will verbalize/demonstrate understanding of assistive devices/ modifications for ADL. 3=Patient will improve strength/tolerance for activity to enable patient to perform ADL's. OT Education/Plan Problem List/Assessment Pt would benefit from skilled OT to increase her independence in basic self care to allow her to safely return to her home and to decrease caregiver burden. Discharge Recommendations Plan/Recommendations: Continue POC Treatment Plan/Plan of Care Patient would benefit from OT for education, treatment and training to promote independence in ADL's, mobility, safety and/or upper extremity function for ADL' s. Plan of Care: ADL Retraining, Functional Mobility, Group Exercise/Act as Ind ( education, exercise, funct activity, activ tolerance, ), UE Funct Exercise/Act, UE Neuromus Re-Ed/Coord Treatment Duration: Jan 25, 2017 Frequency: At least 5 of 7 days/Wk (IRF) Estimated Hrs Per Day: 1.5 hours per day Agreement: Yes Rehab Potential: Good Time/GCodes Start Time: 09:20 Stop Time: 10:20 Total Time Billed (hr/min): 60 Billed Treatment Time visit, ADL 45 minutes, exercise 15 minutes YAMILET JERONIMO OT Jan 15, 2017 10:51
[2017-01-15] MEDS: PHENAZOPYRIDINE 100 MG (PYRIDIUM) TABLET PO PRN (11:35)
--- NOTE | 2017-01-15 13:24 | Progress Note-Hospitalist ---
Standard Progress Note Progress Notes/Assess & Plan Date Seen 01/15/17 Time Seen by Provider: 13:19 Assess & Plan/Chief Complaint The patient reports that she is making progress. She is somewhat frustrated by the fact that her injuries are both left hip and left arm. Notes from therapy suggest she is having balance issues. This morning she states that she feels dizzy, both lightheaded and with a sense of spinning. Physical exam: She is sitting in a chair at bedside. Lungs are clear to auscultation. CV is regular without murmur. Impression: Status post fall with periprosthetic fracture of left hip prosthesis. 2.proximal humeral fracture. 3.dizziness suggesting vertigo Plan: Antivert trial PABLO DIETZ MD Jan 15, 2017 13:24
[2017-01-15] MEDS ORDERED: MECLIZINE 25 MG (ANTIVERT) TAB PO PRN (13:30)
--- NOTE | 2017-01-15 14:30 | Occupational Ther Daily Note ---
OT Current Status-Daily Note Subjective Pt in recliner at beginning of tx. Agreed to therapy. No mention of pain. Appearance Alert, cooperative. Mental Status/Objective Functional [place] Measure 0=Not Assessed/NA 4=Minimal Assistance 1=Total Assistance 5=Supervision or Setup 2=Maximal Assistance 6=Modified [place] 3=Moderate Assistance 7=Complete [place] ADL-Treatment Pt walked from recliner to bathroom with CHW and SBA. Functional [place] Measure 0=Not Assessed/NA 4=Minimal Assistance 1=Total Assistance 5=Supervision or Setup 2=Maximal Assistance 6=Modified [place] 3=Moderate Assistance 7=Complete IndependenceIRFPAI Quality Coding Scale 6 Independent with activity with or without an assistive device 5 Patient requires set up or clean up by helper. Patient completes activity by themselves 4 Supervision or touching assist (CGA). [place] provide cues , steadying assist 3 The helper provides less than half the effort to complete the activity 2 The helper provides more than half the effort to complete the activity 1 Dependent. The helper does all the effort to complete an activity 7 Patient refused to complete or attempt activity 9 The patient did not perform the activity before the current illness or injury 88 Not attempted due to Medical conditions or safety concerns Toileting (FIM): 3 (Pt able to manage hygiene but needs assist with managing clothing. Pt able to get all of R side and part of L side up and down, but needed assist to complete (improvement in getting part of L side). BSC, CHW) Toilet/Commode Transfer (FIM): 5 (Pt able to transfer on and off toilet with SBA. BSC, CHW) Other Treatment Pt transferred from toilet to W/C with CHW and SBA then transported to gym via W /C. Pt used R UE on arm bike for 8 minutes at 15 [place], needing 4 recovery periods due to fatigue. Pt transported to room via W/C and transferred from W/C to EOB with CHW and SBA. Pt transferred from EOB to supine with mod assist ( needed both feet put into bed). Pt in bed, 4 rails up and all needs met at end of tx. Education OT Patient Education: Progress toward Goal/Update tx plan, Purpose of tx/ functional activities Teaching Recipient: Patient Teaching Methods: Discussion Response to Teaching: Verbalize Understanding OT Short Term Goals Short Term Goals Time Frame: Jan 11, 2017 Bathing(FIM): 4 Upper Body Dressing(FIM): 3 Lower Body Dressing(FIM): 3 Toileting(FIM): 3 Toilet/Commode Transfer(FIM): 4 Additional Short Term Goals: 2-Verbalize Understanding, 3-ImproveStrength/Tacho 1=Demonstrate adherence to instructed precautions during ADL tasks. 2=Patient will verbalize/demonstrate understanding of assistive devices/ modifications for ADL. 3=Patient will improve strength/tolerance for activity to enable patient to perform ADL's. OT Lang Path Therapist Goals Retirement Goals Time Frame: Jan 25, 2017 Eating (FIM): 6 Eating (QC): 6 Groomin Oral Hygiene (QC): 6 Bathing(FIM): 5 Shower/Bathe Self (QC): 5 Upper Body Dressing(FIM): 5 Upper Body Dressing (QC): 5 Lower Body Dressing(FIM): 5 Lower Body Dressing (QC): 5 On/Off Footwear (QC): 5 Toileting(FIM): 6 Toileting Hygiene (QC): 5 Toilet/Commode Transfer(FIM): 5 Toilet/Commode Transfer (QC): 5 Shower Transfer(FIM): 5 Additional Goals: 2-Verbalize Understanding, 3-ImproveStrength/Tacho 1=Demonstrate adherence to instructed precautions during ADL tasks. 2=Patient will verbalize/demonstrate understanding of assistive devices/ modifications for ADL. 3=Patient will improve strength/tolerance for activity to enable patient to perform ADL's. OT Education/Plan Problem List/Assessment Pt would benefit from skilled OT to increase her independence in basic self care to allow her to safely return to her home and to decrease caregiver burden. Discharge Recommendations Plan/Recommendations: Continue POC Treatment Plan/Plan of Care Patient would benefit from OT for education, treatment and training to promote independence in ADL's, mobility, safety and/or upper extremity function for ADL' s. Plan of Care: ADL Retraining, Functional Mobility, Group Exercise/Act as Ind ( education, exercise, funct activity, activ tolerance, ), UE Funct Exercise/Act, UE Neuromus Re-Ed/Coord Treatment Duration: Jan 25, 2017 Frequency: At least 5 of 7 days/Wk (IRF) Estimated Hrs Per Day: 1.5 hours per day Agreement: Yes Rehab Potential: Good Time/GCodes Start Time: 13:35 Stop Time: 14:05 Total Time Billed (hr/min): 30 Billed Treatment Time visit, ADL 15 minutes, exercise 15 minutes YAMILET JERONIMO OT Jan 15, 2017 14:30
--- NOTE | 2017-01-15 15:01 | Physical Therapy Daily Note ---
PT Daily Note-Current Subjective Pt sitting in recliner upon arrival. Pt agrees to PT and reports just visited with daughter to prepare in case of discharge coming. Mental Status Patient Orientation: Person, Place, Time, Situation Transfers Functional [place] Measure 0=Not Assessed/NA 4=Minimal Assistance 1=Total Assistance 5=Supervision or Setup 2=Maximal Assistance 6=Modified [place] 3=Moderate Assistance 7=Complete IndependenceIRFPAI Quality Coding Scale 6 Independent with activity with or without an assistive device 5 Patient requires set up or clean up by helper. Patient completes activity by themselves 4 Supervision or touching assist (CGA). [place] provide cues , steadying assist 3 The helper provides less than half the effort to complete the activity 2 The helper provides more than half the effort to complete the activity 1 Dependent. The helper does all the effort to complete an activity 7 Patient refused to complete or attempt activity 9 The patient did not perform the activity before the current illness or injury 88 Not attempted due to Medical conditions or safety concerns Weight Bearing Right Lower Extremity: Right Full Weight Bearing Left Lower Extremity: Left Weight Bearing/Tolerated with standby assistance Left UE in a sling Treatments Pt, EXCEPTIONAL CHILDREN'S TEACHER & Ore Feeder discuss equipment needs for home as well as need for ramp since pt is unable to ambulate stairs at this point due to lack of strength. Pt reported concern that family does not fully understand/comprehend how soon pt might discharge and what pt will need at home for help. Ore Feeder suggests family meeting to clear up situation. Assessment Current Status: Good Progress Pt continues to make progress with activity tolerance, transfers and distance ambulated although pt still cannot ambulate household distance and will be living alone. PT Short Term Goals Short Term Goals Time Frame: Jan 11, 2017 Gait (FIM): 2 Distance (FIM): 4=432-57 ft Wheelchair Distance: 150' PT Shelter Goals Health Information Internship Goals PT Health Information Internship Goals Time Frame: Jan 25, 2017 Transfers (B,C,W/C) (FIM): 6 Sit to Lying (QC): 6 Lying-Sitting on Side/Bed(QC): 6 Sit to Stand (QC): 6 Rollin Roll Left to Right (QC): 6 Chair/Bmm-qh-Badzr Xfer(QC): 6 Car Transfer (QC): 6 Does the Patient Walk: Yes Gait (FIM): 6 Gait distance (FIM): 3=150 ft Walk 10 feet (QC): 6 Walk 10ft-Uneven Surface(QC): 6 Walk 50ft with 2 Turns (QC): 6 Walk 150 ft (QC): 6 Gait Assistive Device: Cane Small Base Quad (or 1 handed walker) Does the Pt use WC or Scooter?: No Stairs (FIM): 2 # of Steps: 4 1 Step (curb) (QC): 5 4 Steps (QC): 5 12 Steps (QC): 0 (dash) Picking up an Object (QC): 5 PT Plan Problem List Problem List: Activity Tolerance, Functional Strength, Safety, Balance, Gait Treatment/Plan Treatment Plan: Continue Plan of Care Treatment Plan: Bed Mobility, Education, Functional Activity Tacho, Functional Strength, Group Therapy, Gait, Safety, Therapeutic Exercise, Transfers Treatment Duration: Jan 25, 2017 Frequency: At least 5 of 7 days/Wk (IRF) Estimated Hrs Per Day: 1.5 hours per day Patient and/or Family Agrees t: Yes Safety Risks/Education Patient Education: Safety Issues Teaching Recipient: Patient, Health Care Proxy Teaching Methods: Discussion Response to Teaching: Verbalize Understanding Time/GCodes Time In: 1300 Time Out: 1330 Total Billed Treatment Time: 30 Total Billed Treatment 1, FA x2 (30m) VINNY COSME PTA Jan 15, 2017 15:01
[2017-01-15 19:07] VITALS: BP 104/63
[2017-01-15] MEDS: lisINopril 20 MG (ZESTRIL) TAB PO SCH (21:22)
[2017-01-15] MEDS: TEMAZEPAM 15 MG (RESTORIL) CAP PO SCH (21:23)
[2017-01-16 06:40] VITALS: BP 128/71
[2017-01-16] MEDS: METOCLOPRAMIDE 10 MG (REGLAN) TAB PO SCH ×3 (06:52→17:09)
[2017-01-16] MEDS: OMEGA 3 (FISH OIL) 1000 MG CAP PO SCH ×2 (06:52→17:09)
[2017-01-16] MEDS: HYDROcodone/APAP 10 MG/325 MG (LORTAB) TAB PO PRN ×4 (06:52→23:54)
[2017-01-16] MEDS: LEVOTHYROXINE 50 MCG (LEVOTHROID) TAB PO SCH (06:52)
[2017-01-16] MEDS: BETHANECHOL 25 MG (URECHOLINE) TAB PO SCH ×3 (06:52→17:09)
[2017-01-16] MEDS: PANTOPRAZOLE 40 MG (PROTONIX) TAB PO SCH (06:52)
[2017-01-16] MEDS: PYRIDOXINE (VITAMIN B-6) 50 MG TABLET PO SCH (09:53)
[2017-01-16] MEDS: LACTULOSE SYRUP 10GM/15ML (ENULOSE) 30ML UDC PO SCH ×2 (09:53→21:04)
[2017-01-16] MEDS: amLODIPine 10 MG (NORVASC) TAB PO SCH (09:53)
[2017-01-16] MEDS: DOCUSATE SODIUM 100 MG (COLACE) CAP PO SCH ×2 (09:53→21:03)
[2017-01-16] MEDS: HYDROCHLOROTHIAZIDE 25 MG (HCTZ) TAB PO SCH (09:53)
[2017-01-16] MEDS: hydrOXYzine (VISTARIL) 25 MG CAP PO SCH ×4 (09:53→21:03)
[2017-01-16] MEDS: ONDANSETRON 8 MG (ZOFRAN) ORAL DISSOLVE TAB PO PRN (09:59)
--- NOTE | 2017-01-16 10:20 | Progress Note-Urology ---
Progress Note-Urology Progress Notes/Assess & Plan Progress/Assessment & Plan FEELING WELL. CONTINUES VOIDING WELL ON OWN AFTER DC FLOMAX AND DECREASING URECHOLINE Final Diagnosis URINE RETENTION ZAHRA JEFF MD Jan 16, 2017 10:20 am
--- NOTE | 2017-01-16 11:04 | Occupational Ther Daily Note ---
OT Current Status-Daily Note Subjective Pt in bed at beginning of tx. Agreed to therapy. Some intermittent pain with movement and/or position change but not rated. Appearance Alert, cooperative. Mental Status/Objective Functional [place] Measure 0=Not Assessed/NA 4=Minimal Assistance 1=Total Assistance 5=Supervision or Setup 2=Maximal Assistance 6=Modified [place] 3=Moderate Assistance 7=Complete [place] ADL-Treatment Pt transferred supine to EOB with SBA, EOB to stand with SBA, walked to bathroom with CHW and SBA. Functional [place] Measure 0=Not Assessed/NA 4=Minimal Assistance 1=Total Assistance 5=Supervision or Setup 2=Maximal Assistance 6=Modified [place] 3=Moderate Assistance 7=Complete IndependenceIRFPAI Quality Coding Scale 6 Independent with activity with or without an assistive device 5 Patient requires set up or clean up by helper. Patient completes activity by themselves 4 Supervision or touching assist (CGA). [place] provide cues , steadying assist 3 The helper provides less than half the effort to complete the activity 2 The helper provides more than half the effort to complete the activity 1 Dependent. The helper does all the effort to complete an activity 7 Patient refused to complete or attempt activity 9 The patient did not perform the activity before the current illness or injury 88 Not attempted due to Medical conditions or safety concerns Grooming (FIM): 5 (Pt washed hands and face in shower with setup. Pt stood at sink and combed hair and brushed teeth with no observed LOB, SBA. CHW) Bathing (FIM): 5 (Pt washed, rinsed, and dried 10 parts (improved from 7 or less) with setup, SBA for standing to rinse with no observed LOB. Pt educated on use of long handled sponge to wash and dry LE and R arm Shower bench, hand held shower, grab bars, CHW. ) Upper Body (FIM): 5 (Pt able to doff and don pullover shirt with setup ) Lower Body Dressing (FIM): 2 (Pt needed assist to thread L foot and manage L side of brief (could pull pants up to thighs) and needed help with both socks. SBA, CHW Pt educ potential ADL equipment including sock aid, dressing stick, finance and administration manager) Toileting (FIM): 3 (Pt able to get clothing down and manage hygiene with supervision, needs assist to get clothing up . BSC, grab bars, CHW 67%) Toilet/Commode Transfer (FIM): 5 (Pt able to transfer on and off toilet with supervision. BSC, CHW, grab bars) Shower Transfer(FIM): 5 (Pt able to transfer on and off shower bench with SBA. Shower bench, grab bars, CHW. ) Other Treatment Pt walked to recliner with CHW and SBA. Pt in recliner with all needs met at end of tx. OT Short Term Goals Short Term Goals Time Frame: Jan 11, 2017 Bathing(FIM): 4 Upper Body Dressing(FIM): 3 Lower Body Dressing(FIM): 3 Toileting(FIM): 3 Toilet/Commode Transfer(FIM): 4 Additional Short Term Goals: 2-Verbalize Understanding, 3-ImproveStrength/Tacho 1=Demonstrate adherence to instructed precautions during ADL tasks. 2=Patient will verbalize/demonstrate understanding of assistive devices/ modifications for ADL. 3=Patient will improve strength/tolerance for activity to enable patient to perform ADL's. OT Drying Machine Tender Goals Drying Machine Tender Goals Time Frame: Jan 25, 2017 Eating (FIM): 6 Eating (QC): 6 Groomin Oral Hygiene (QC): 6 Bathing(FIM): 5 Shower/Bathe Self (QC): 5 Upper Body Dressing(FIM): 5 Upper Body Dressing (QC): 5 Lower Body Dressing(FIM): 5 Lower Body Dressing (QC): 5 On/Off Footwear (QC): 5 Toileting(FIM): 6 Toileting Hygiene (QC): 5 Toilet/Commode Transfer(FIM): 5 Toilet/Commode Transfer (QC): 5 Shower Transfer(FIM): 5 Additional Goals: 2-Verbalize Understanding, 3-ImproveStrength/Tacho 1=Demonstrate adherence to instructed precautions during ADL tasks. 2=Patient will verbalize/demonstrate understanding of assistive devices/ modifications for ADL. 3=Patient will improve strength/tolerance for activity to enable patient to perform ADL's. OT Education/Plan Problem List/Assessment Pt would benefit from skilled OT to increase her independence in basic self care to allow her to safely return to her home and to decrease caregiver burden. Discharge Recommendations Plan/Recommendations: Continue POC Treatment Plan/Plan of Care Patient would benefit from OT for education, treatment and training to promote independence in ADL's, mobility, safety and/or upper extremity function for ADL' s. Plan of Care: ADL Retraining, Functional Mobility, Group Exercise/Act as Ind ( education, exercise, funct activity, activ tolerance, ), UE Funct Exercise/Act, UE Neuromus Re-Ed/Coord Treatment Duration: Jan 25, 2017 Frequency: At least 5 of 7 days/Wk (IRF) Estimated Hrs Per Day: 1.5 hours per day Agreement: Yes Rehab Potential: Good Time/GCodes Start Time: 09:38 Stop Time: 10:30 Total Time Billed (hr/min): 52 Billed Treatment Time visit, ADL 52 minutes YAMILET JERONIMO OT Jan 16, 2017 11:04
--- NOTE | 2017-01-16 11:37 | Physical Therapy Daily Note ---
PT Daily Note-Current Subjective Pt sitting in recliner upon arrival. Pt reported showered herself during OT tx today. Pt agrees to PT. Pain Numeric Pain Scale: 6 Location: Left Location Body Site: Shoulder Pain Description: Sharp Comment: L shoulder 6/10 sharp pain, L hip 5/10 achy pain Mental Status Patient Orientation: Person, Place, Time, Situation Transfers Functional [place] Measure 0=Not Assessed/NA 4=Minimal Assistance 1=Total Assistance 5=Supervision or Setup 2=Maximal Assistance 6=Modified [place] 3=Moderate Assistance 7=Complete IndependenceIRFPAI Quality Coding Scale 6 Independent with activity with or without an assistive device 5 Patient requires set up or clean up by helper. Patient completes activity by themselves 4 Supervision or touching assist (CGA). [place] provide cues , steadying assist 3 The helper provides less than half the effort to complete the activity 2 The helper provides more than half the effort to complete the activity 1 Dependent. The helper does all the effort to complete an activity 7 Patient refused to complete or attempt activity 9 The patient did not perform the activity before the current illness or injury 88 Not attempted due to Medical conditions or safety concerns Scootin Sit to/from Stand: 5 Sit to Stand (QC): 5 Weight Bearing Right Lower Extremity: Right Full Weight Bearing Left Lower Extremity: Left Weight Bearing/Tolerated with standby assistance Left UE in a sling Gait Training Does the Patient Walk?: Yes Distance (FIM): 7=373-95 ft Distance: 100' Walk 10 feet (QC): 5 Walk 50 ft with 2 Turns(QC): 5 Gait Level of Assist: 5 Gait Persons Needed: 1 Gait Assistive Device: Walker Center-Hold Pt's gait is slow and a little choppy but her activity tolerance is improving with ambulation. Exercises Seated Therapy Exercises: Ankle pumps, Long arc quads, Hip flexion, Kicking activity Seated Reps: 20 Treatments Pt transfers from recliner to standing at SBA using FWW. Pt ambulates in hallway using FWW at [facility]. Pt returns to room to rest in recliner and RECREATION COUNSELOR & pt discuss pt's talk with granddaughter about moving in to help. Pt then completes Seated Ex in recliner. Pt rests in recliner at end of tx with all needs met. Assessment Current Status: Good Progress Pt's strength & activity tolerance has improved. Pt's pain is still remaining though. PT Short Term Goals Short Term Goals Time Frame: Jan 11, 2017 Gait (FIM): 2 Distance (FIM): 5=074-43 ft Wheelchair Distance: 150' PT Correction Goals Relaster Goals PT Relaster Goals Time Frame: Jan 25, 2017 Transfers (B,C,W/C) (FIM): 6 Sit to Lying (QC): 6 Lying-Sitting on Side/Bed(QC): 6 Sit to Stand (QC): 6 Rollin Roll Left to Right (QC): 6 Chair/Acc-fd-Oqsdc Xfer(QC): 6 Car Transfer (QC): 6 Does the Patient Walk: Yes Gait (FIM): 6 Gait distance (FIM): 3=150 ft Walk 10 feet (QC): 6 Walk 10ft-Uneven Surface(QC): 6 Walk 50ft with 2 Turns (QC): 6 Walk 150 ft (QC): 6 Gait Assistive Device: Cane Small Base Quad (or 1 handed walker) Does the Pt use WC or Scooter?: No Stairs (FIM): 2 # of Steps: 4 1 Step (curb) (QC): 5 4 Steps (QC): 5 12 Steps (QC): 0 (dash) Picking up an Object (QC): 5 PT Plan Problem List Problem List: Activity Tolerance, Functional Strength, Gait Treatment/Plan Treatment Plan: Continue Plan of Care Treatment Plan: Bed Mobility, Education, Functional Activity Tacho, Functional Strength, Group Therapy, Gait, Safety, Therapeutic Exercise, Transfers Treatment Duration: Jan 25, 2017 Frequency: At least 5 of 7 days/Wk (IRF) Estimated Hrs Per Day: 1.5 hours per day Patient and/or Family Agrees t: Yes Safety Risks/Education Patient Education: Gait Training, Correct Positioning, Safety Issues Teaching Recipient: Patient Teaching Methods: Discussion Response to Teaching: Verbalize Understanding Time/GCodes Time In: 1030 Time Out: 1130 Total Billed Treatment Time: 60 Total Billed Treatment 1, GT x2 (30m), EX (15m) & FA (15m) VINNY COSME RECREATION COUNSELOR Jan 16, 2017 11:37
--- NOTE | 2017-01-16 14:40 | Physical Therapy Daily Note ---
PT Daily Note-Current Subjective Pt finishing with OT in Therapy Gym, pt needed to use restroom. Pt agrees to PT. Pain Numeric Pain Scale: 6 Location: Left Location Body Site: Shoulder Pain Description: Sharp Mental Status Patient Orientation: Person, Place, Time, Situation Transfers Functional [place] Measure 0=Not Assessed/NA 4=Minimal Assistance 1=Total Assistance 5=Supervision or Setup 2=Maximal Assistance 6=Modified [place] 3=Moderate Assistance 7=Complete IndependenceIRFPAI Quality Coding Scale 6 Independent with activity with or without an assistive device 5 Patient requires set up or clean up by helper. Patient completes activity by themselves 4 Supervision or touching assist (CGA). [place] provide cues , steadying assist 3 The helper provides less than half the effort to complete the activity 2 The helper provides more than half the effort to complete the activity 1 Dependent. The helper does all the effort to complete an activity 7 Patient refused to complete or attempt activity 9 The patient did not perform the activity before the current illness or injury 88 Not attempted due to Medical conditions or safety concerns Scootin Sit to/from Stand: 5 Sit to Stand (QC): 5 Weight Bearing Right Lower Extremity: Right Full Weight Bearing Left Lower Extremity: Left Weight Bearing/Tolerated with standby assistance Left UE in a sling Wheelchair Training Does the Pt Use a Wheelchair?: Yes Wheelchair Distance: 5=370-34 ft Distance: 100' Wheelchair Level of Assist: 5 Wheel 50 ft with 2 turns (QC): 5 Type of Wheelchair: Manual Exercises Seated Therapy Exercises: Ankle pumps, Long arc quads, Hip flexion, Kicking activity, Hip abd/add Seated Reps: 20 Treatments Pt propels WCH to room to use restroom. Pt returns to recliner to rest after finishing. Pt completes Seated Ex in recliner. Pt resting in recliner with feet up at end of tx with all needs met. Assessment Current Status: Good Progress Pt is tired from today's tx but completes Ex. Pt fatigues but recovers quickly. PT Short Term Goals Short Term Goals Time Frame: Jan 11, 2017 Gait (FIM): 2 Distance (FIM): 5=678-98 ft Wheelchair Distance: 150' PT Custodial Goals Vet Assistant Goals PT Vet Assistant Goals Time Frame: Jan 25, 2017 Transfers (B,C,W/C) (FIM): 6 Sit to Lying (QC): 6 Lying-Sitting on Side/Bed(QC): 6 Sit to Stand (QC): 6 Rollin Roll Left to Right (QC): 6 Chair/Wws-qn-Mmpnr Xfer(QC): 6 Car Transfer (QC): 6 Does the Patient Walk: Yes Gait (FIM): 6 Gait distance (FIM): 3=150 ft Walk 10 feet (QC): 6 Walk 10ft-Uneven Surface(QC): 6 Walk 50ft with 2 Turns (QC): 6 Walk 150 ft (QC): 6 Gait Assistive Device: Cane Small Base Quad (or 1 handed walker) Does the Pt use WC or Scooter?: No Stairs (FIM): 2 # of Steps: 4 1 Step (curb) (QC): 5 4 Steps (QC): 5 12 Steps (QC): 0 (dash) Picking up an Object (QC): 5 PT Plan Problem List Problem List: Activity Tolerance, Functional Strength, Gait Treatment/Plan Treatment Plan: Continue Plan of Care Treatment Plan: Bed Mobility, Education, Functional Activity Tacho, Functional Strength, Group Therapy, Gait, Safety, Therapeutic Exercise, Transfers Treatment Duration: Jan 25, 2017 Frequency: At least 5 of 7 days/Wk (IRF) Estimated Hrs Per Day: 1.5 hours per day Patient and/or Family Agrees t: Yes Safety Risks/Education Patient Education: Transfer Techniques, Correct Positioning, Safety Issues Teaching Recipient: Patient Teaching Methods: Discussion Response to Teaching: Verbalize Understanding Time/GCodes Time In: 1355 Time Out: 1425 Total Billed Treatment Time: 30 Total Billed Treatment 1, EX x2 (30m) VINNY COSME PTA Jan 16, 2017 14:40
--- NOTE | 2017-01-16 14:49 | Occupational Ther Daily Note ---
OT Current Status-Daily Note Subjective Pt in bed at beginning of tx. Agreeable to therapy. No mention of pain but c/o being cold. Got pt warm blanket. Appearance Alert, cooperative. Mental Status/Objective Functional [place] Measure 0=Not Assessed/NA 4=Minimal Assistance 1=Total Assistance 5=Supervision or Setup 2=Maximal Assistance 6=Modified [place] 3=Moderate Assistance 7=Complete [place] ADL-Treatment Functional [place] Measure 0=Not Assessed/NA 4=Minimal Assistance 1=Total Assistance 5=Supervision or Setup 2=Maximal Assistance 6=Modified [place] 3=Moderate Assistance 7=Complete IndependenceIRFPAI Quality Coding Scale 6 Independent with activity with or without an assistive device 5 Patient requires set up or clean up by helper. Patient completes activity by themselves 4 Supervision or touching assist (CGA). [place] provide cues , steadying assist 3 The helper provides less than half the effort to complete the activity 2 The helper provides more than half the effort to complete the activity 1 Dependent. The helper does all the effort to complete an activity 7 Patient refused to complete or attempt activity 9 The patient did not perform the activity before the current illness or injury 88 Not attempted due to Medical conditions or safety concerns Toileting (FIM): 5 (Pt able to manage clothing up and down (improvement from down only) and hygiene with SBA. BSC, CHW, grab bar) Toilet/Commode Transfer (FIM): 5 (Pt able to transfer on and off toilet with SBA. BSC, CHW, grab bar) Other Treatment Pt transfer from supine to EOB with SBA, EOB to W/C with SBA. Pt transferred to gym via W/C and used arm bike with R UE for 10 minutes at 10 z[place]aga with 4 recovery periods (improvement of 2 minutes) to increase activity tolerance for improved ADLs. Pt used R UE to remove and replace graduated clothes pins while wearing a 1# weight on wrist to increase strength to improve transfers. Pt transported to room via W/C and transferred to toilet with SBA. Pt care transferred to PT. Education OT Patient Education: Modified ADL techniques, Progress toward Goal/Update tx plan Teaching Methods: Discussion Response to Teaching: Verbalize Understanding OT Short Term Goals Short Term Goals Time Frame: Jan 11, 2017 Bathing(FIM): 4 Upper Body Dressing(FIM): 3 Lower Body Dressing(FIM): 3 Toileting(FIM): 3 Toilet/Commode Transfer(FIM): 4 Additional Short Term Goals: 2-Verbalize Understanding, 3-ImproveStrength/Tacho 1=Demonstrate adherence to instructed precautions during ADL tasks. 2=Patient will verbalize/demonstrate understanding of assistive devices/ modifications for ADL. 3=Patient will improve strength/tolerance for activity to enable patient to perform ADL's. OT Supervisor Particleboard Goals Supervisor Particleboard Goals Time Frame: Jan 25, 2017 Eating (FIM): 6 Eating (QC): 6 Groomin Oral Hygiene (QC): 6 Bathing(FIM): 5 Shower/Bathe Self (QC): 5 Upper Body Dressing(FIM): 5 Upper Body Dressing (QC): 5 Lower Body Dressing(FIM): 5 Lower Body Dressing (QC): 5 On/Off Footwear (QC): 5 Toileting(FIM): 6 Toileting Hygiene (QC): 5 Toilet/Commode Transfer(FIM): 5 Toilet/Commode Transfer (QC): 5 Shower Transfer(FIM): 5 Additional Goals: 2-Verbalize Understanding, 3-ImproveStrength/Tacho 1=Demonstrate adherence to instructed precautions during ADL tasks. 2=Patient will verbalize/demonstrate understanding of assistive devices/ modifications for ADL. 3=Patient will improve strength/tolerance for activity to enable patient to perform ADL's. OT Education/Plan Problem List/Assessment Pt would benefit from skilled OT to increase her independence in basic self care to allow her to safely return to her home and to decrease caregiver burden. Discharge Recommendations Plan/Recommendations: Continue POC Treatment Plan/Plan of Care Patient would benefit from OT for education, treatment and training to promote independence in ADL's, mobility, safety and/or upper extremity function for ADL' s. Plan of Care: ADL Retraining, Functional Mobility, Group Exercise/Act as Ind ( education, exercise, funct activity, activ tolerance, ), UE Funct Exercise/Act, UE Neuromus Re-Ed/Coord Treatment Duration: Jan 25, 2017 Frequency: At least 5 of 7 days/Wk (IRF) Estimated Hrs Per Day: 1.5 hours per day Agreement: Yes Rehab Potential: Good Time/GCodes Start Time: 13:15 Stop Time: 13:55 Total Time Billed (hr/min): 40 Billed Treatment Time visit, ADL 10 minutes, exercise 30 minutes, YAMILET JERONIMO OT Jan 16, 2017 14:49
[2017-01-16 18:17] VITALS: BP 134/74
[2017-01-16] MEDS: lisINopril 20 MG (ZESTRIL) TAB PO SCH (21:03)
[2017-01-16] MEDS: TEMAZEPAM 15 MG (RESTORIL) CAP PO SCH (21:03)
[2017-01-17] MEDS: HYDROcodone/APAP 10 MG/325 MG (LORTAB) TAB PO PRN ×4 (04:57→17:10)
[2017-01-17 06:20] VITALS: BP 136/71
[2017-01-17] MEDS: METOCLOPRAMIDE 10 MG (REGLAN) TAB PO SCH ×3 (06:37→17:12)
[2017-01-17] MEDS: PANTOPRAZOLE 40 MG (PROTONIX) TAB PO SCH (06:37)
[2017-01-17] MEDS: OMEGA 3 (FISH OIL) 1000 MG CAP PO SCH ×2 (06:37→17:10)
[2017-01-17] MEDS: BETHANECHOL 25 MG (URECHOLINE) TAB PO SCH ×3 (06:37→17:10)
[2017-01-17] MEDS: LEVOTHYROXINE 50 MCG (LEVOTHROID) TAB PO SCH (06:37)
[2017-01-17] MEDS: CLOPIDOGREL 75 MG (PLAVIX) TABLET PO SCH (08:22)
[2017-01-17] MEDS: HYDROCHLOROTHIAZIDE 25 MG (HCTZ) TAB PO SCH (08:22)
[2017-01-17] MEDS: amLODIPine 10 MG (NORVASC) TAB PO SCH (08:22)
[2017-01-17] MEDS: hydrOXYzine (VISTARIL) 25 MG CAP PO SCH ×4 (08:22→20:20)
[2017-01-17] MEDS: PYRIDOXINE (VITAMIN B-6) 50 MG TABLET PO SCH (08:30)
[2017-01-17] MEDS: ONDANSETRON 8 MG (ZOFRAN) ORAL DISSOLVE TAB PO PRN (08:39)
[2017-01-17] MEDS: DOCUSATE SODIUM 100 MG (COLACE) CAP PO SCH ×2 (08:42→18:36)
[2017-01-17] MEDS: LACTULOSE SYRUP 10GM/15ML (ENULOSE) 30ML UDC PO SCH ×2 (08:43→18:36)
--- NOTE | 2017-01-17 11:06 | Progress Note-Urology ---
Progress Note-Urology Progress Notes/Assess & Plan Progress/Assessment & Plan CONTINUES WELL. CONTINUE WITHDRAWAL URECHOLINE Final Diagnosis URINE RETENTION ZAHRA JEFF MD Jan 17, 2017 11:06 am
--- NOTE | 2017-01-17 11:45 | Occupational Ther Daily Note ---
OT Current Status-Daily Note Subjective Pt in bed at beginning of tx. Agreed to therapy. C/o pain in arm, rated 6/10, nurse notified. Appearance Alert, cooperative. Mental Status/Objective Functional [place] Measure 0=Not Assessed/NA 4=Minimal Assistance 1=Total Assistance 5=Supervision or Setup 2=Maximal Assistance 6=Modified [place] 3=Moderate Assistance 7=Complete [place] ADL-Treatment Pt supine to EOB with SBA, transferred to BSC with SBA, back to EOB with SBA. Pt sponge bathed and had breakfast at EOB. Pt EOB for sock aid and dressing stick education and return demonstration. While pt ate breakfast, equipment needed at home was discussed. Pt has FWW, a riser for toilet, and shower chair but all are stored in garage. Pt also needs CHW due to not being able to use L UE and will need a ramp installed due to steps to get into home. Functional [place] Measure 0=Not Assessed/NA 4=Minimal Assistance 1=Total Assistance 5=Supervision or Setup 2=Maximal Assistance 6=Modified [place] 3=Moderate Assistance 7=Complete IndependenceIRFPAI Quality Coding Scale 6 Independent with activity with or without an assistive device 5 Patient requires set up or clean up by helper. Patient completes activity by themselves 4 Supervision or touching assist (CGA). [place] provide cues , steadying assist 3 The helper provides less than half the effort to complete the activity 2 The helper provides more than half the effort to complete the activity 1 Dependent. The helper does all the effort to complete an activity 7 Patient refused to complete or attempt activity 9 The patient did not perform the activity before the current illness or injury 88 Not attempted due to Medical conditions or safety concerns Eating (FIM): 5 (Pt not able to open butter package but able to butter muffin and open other packages. No difficulty with eating or getting food/drink to mouth.) Grooming (FIM): 5 (Pt brushed teeth, washed face and hands, and combed hair while sitting EOB with setup. ) Bathing (FIM): 5 (Pt washed 10 parts while EOB with setup. Long handled sponge) Lower Body Dressing (FIM): 5 (Pt educated on use of sock aid to don socks and long handled dressing stick to doff socks. Pt able to return demonstration by doffing one sock and donning 2 socks with supervision. Sock aid, long handled dressing stick.) Toileting (FIM): 5 (Pt able to manage hygiene and get brief up and down with SBA. BSC, CHW) Toilet/Commode Transfer (FIM): 5 (Pt able to transfer on and off BSC with SBA. CHW, BSC) Other Treatment Pt transferred from EOB to W/C with CHW and SBA. Pt transported to gym via W/C and completed table top activity of placing and removing 1/4 inch stem pegs into pegboard while standing to increase activity tolerance for improved ADLs. Pt did activity twice with a recovery period between each as pt felt fatigued and "a little dizzy". Pt able to complete activity second time. Stood at least 5 minutes each time. Pt transferred to room via W/C and transferred to recliner with SBA. Pt in recliner with all needs met at end of tx. Education OT Patient Education: Progress toward Goal/Update tx plan, Purpose of tx/ functional activities, Safety issues, Use of adapted equipment Teaching Recipient: Patient Teaching Methods: Demonstration, Discussion Response to Teaching: Verbalize Understanding, Return Demonstration, Reinforcement Needed OT Short Term Goals Short Term Goals Time Frame: Jan 11, 2017 Bathing(FIM): 4 Upper Body Dressing(FIM): 3 Lower Body Dressing(FIM): 3 Toileting(FIM): 3 Toilet/Commode Transfer(FIM): 4 Additional Short Term Goals: 2-Verbalize Understanding, 3-ImproveStrength/Tacho 1=Demonstrate adherence to instructed precautions during ADL tasks. 2=Patient will verbalize/demonstrate understanding of assistive devices/ modifications for ADL. 3=Patient will improve strength/tolerance for activity to enable patient to perform ADL's. OT Credit Cashier Goals Residential Goals Time Frame: Jan 25, 2017 Eating (FIM): 6 Eating (QC): 6 Groomin Oral Hygiene (QC): 6 Bathing(FIM): 5 Shower/Bathe Self (QC): 5 Upper Body Dressing(FIM): 5 Upper Body Dressing (QC): 5 Lower Body Dressing(FIM): 5 Lower Body Dressing (QC): 5 On/Off Footwear (QC): 5 Toileting(FIM): 6 Toileting Hygiene (QC): 5 Toilet/Commode Transfer(FIM): 5 Toilet/Commode Transfer (QC): 5 Shower Transfer(FIM): 5 Additional Goals: 2-Verbalize Understanding, 3-ImproveStrength/Tacho 1=Demonstrate adherence to instructed precautions during ADL tasks. 2=Patient will verbalize/demonstrate understanding of assistive devices/ modifications for ADL. 3=Patient will improve strength/tolerance for activity to enable patient to perform ADL's. OT Education/Plan Problem List/Assessment Pt would benefit from skilled OT to increase her independence in basic self care to allow her to safely return to her home and to decrease caregiver burden. Discharge Recommendations Plan/Recommendations: Continue POC Treatment Plan/Plan of Care Patient would benefit from OT for education, treatment and training to promote independence in ADL's, mobility, safety and/or upper extremity function for ADL' s. Plan of Care: ADL Retraining, Functional Mobility, Group Exercise/Act as Ind ( education, exercise, funct activity, activ tolerance, ), UE Funct Exercise/Act, UE Neuromus Re-Ed/Coord Treatment Duration: Jan 25, 2017 Frequency: At least 5 of 7 days/Wk (IRF) Estimated Hrs Per Day: 1.5 hours per day Agreement: Yes Rehab Potential: Good Time/GCodes Start Time: 08:20 Stop Time: 09:55 Total Time Billed (hr/min): 95 Billed Treatment Time visit, ADL 60 minutes, exercise 35 minutes YAMILET JERONIMO OT Jan 17, 2017 11:45
--- NOTE | 2017-01-17 11:58 | Physical Therapy Daily Note ---
PT Daily Note-Current Subjective Pt sitting in recliner upon arrival. Pt agrees to PT. Pain Numeric Pain Scale: 5-Moderate Pain Location: Left Location Body Site: Thigh Pain Description: Ache Mental Status Patient Orientation: Person, Place, Time, Situation Transfers Functional [place] Measure 0=Not Assessed/NA 4=Minimal Assistance 1=Total Assistance 5=Supervision or Setup 2=Maximal Assistance 6=Modified [place] 3=Moderate Assistance 7=Complete IndependenceIRFPAI Quality Coding Scale 6 Independent with activity with or without an assistive device 5 Patient requires set up or clean up by helper. Patient completes activity by themselves 4 Supervision or touching assist (CGA). [place] provide cues , steadying assist 3 The helper provides less than half the effort to complete the activity 2 The helper provides more than half the effort to complete the activity 1 Dependent. The helper does all the effort to complete an activity 7 Patient refused to complete or attempt activity 9 The patient did not perform the activity before the current illness or injury 88 Not attempted due to Medical conditions or safety concerns Scootin Rollin Roll Left to Right (QC): 5 Supine to/from Sit: 4 Sit to/from Stand: 5 Sit to Lying (QC): 4 Sit to Stand (QC): 5 Weight Bearing Right Lower Extremity: Right Full Weight Bearing Left Lower Extremity: Left Weight Bearing/Tolerated with standby assistance Left UE in a sling Gait Training Does the Patient Walk?: Yes Distance (FIM): 3=150 ft Distance: 150' Walk 10 feet (QC): 5 Walk 50 ft with 2 Turns(QC): 5 Walk 150 ft (QC): 5 Gait Level of Assist: 5 Gait Persons Needed: 1 Gait Assistive Device: Walker Center-Hold Pt walks with slow but steady gait. Pt is still a little choppy with movement although it is getting more fluid. Exercises Seated Therapy Exercises: Ankle pumps, Long arc quads, Hip flexion, Kicking activity Seated Reps: 20 Treatments Pt discussed with BASEBOARD HEATING INSTALLER that Quarter Folder at talked with pt regarding discharge next week () and what pt might need. Pt reported lack of assistance from daughter although Quarter Folder advised she would contact daughter for support. Pt walks approx. 150' using FWW at SBA before resting. Pt completes Seated Ex then completes ambulation back to room to rest. Pt transfers back to bed at end of tx at Min A for EOB to Supine due to lifting LLE int bed. Pt rests with all needs met at end of tx. Assessment Current Status: Good Progress Pt is improving with distance ambulated at a time before rest. Pt is walking more fluidly although lack of use of LUE limits what pt can do to normalize tasks. PT Short Term Goals Short Term Goals Time Frame: Jan 11, 2017 Gait (FIM): 2 Distance (FIM): 8=606-34 ft Wheelchair Distance: 100' PT Half-Way Goals Cardiopulmonary Technologist Goals PT Half-Way Goals Time Frame: Jan 25, 2017 Transfers (B,C,W/C) (FIM): 6 Sit to Lying (QC): 6 Lying-Sitting on Side/Bed(QC): 6 Sit to Stand (QC): 6 Rollin Roll Left to Right (QC): 6 Chair/Kal-ov-Xeeqh Xfer(QC): 6 Car Transfer (QC): 6 Does the Patient Walk: Yes Gait (FIM): 6 Gait distance (FIM): 3=150 ft Walk 10 feet (QC): 6 Walk 10ft-Uneven Surface(QC): 6 Walk 50ft with 2 Turns (QC): 6 Walk 150 ft (QC): 6 Gait Assistive Device: Cane Small Base Quad (or 1 handed walker) Does the Pt use WC or Scooter?: No Stairs (FIM): 2 # of Steps: 4 1 Step (curb) (QC): 5 4 Steps (QC): 5 12 Steps (QC): 0 (dash) Picking up an Object (QC): 5 PT Plan Problem List Problem List: Activity Tolerance, Functional Strength, Gait Treatment/Plan Treatment Plan: Continue Plan of Care Treatment Plan: Bed Mobility, Education, Functional Activity Tacho, Functional Strength, Group Therapy, Gait, Safety, Therapeutic Exercise, Transfers Treatment Duration: Jan 25, 2017 Frequency: At least 5 of 7 days/Wk (IRF) Estimated Hrs Per Day: 1.5 hours per day Patient and/or Family Agrees t: Yes Safety Risks/Education Patient Education: Gait Training, Transfer Techniques, Correct Positioning, Safety Issues Teaching Recipient: Patient Teaching Methods: Discussion Response to Teaching: Verbalize Understanding Time/GCodes Time In: 1100 Time Out: 1200 Total Billed Treatment Time: 60 Total Billed Treatment 1, GT x2 (25m), FA (15m) & EX (20m) VINNY COSME BASEBOARD HEATING INSTALLER Jan 17, 2017 11:58
--- NOTE | 2017-01-17 13:27 | Progress Note-Hospitalist ---
Subjective HPI/CC On Admission Date Seen by Provider: Jan 17, 2017 Time Seen by Provider: 12:40 Subjective/Events-last exam Pt reports doing well. Plan is to DC next . Reports her granddaughter will stay with her for a month or so to help with the transition. Has no other complaints. Objective Exam Vital Signs Vital Sign - Last 12Hours 01/11/17 05:31 Temp 97.5 Pulse 64 Resp 18 B/P (MAP) 97/55 (69) Pulse Ox 93 O2 Delivery Room Air Capillary Refill : Less Than 3 Seconds General Appearance: No Apparent Distress, WD/WN Respiratory: Lungs Clear, No Respiratory Distress Cardiovascular: Regular Rate, Rhythm, No Murmur Gastrointestinal: Normal Bowel Sounds, Non Tender, Soft Neurologic/Psychiatric: Alert, Oriented x3 Assessment/Plan Assessment and Plan Assess & Plan/Chief Complaint s/p periprosthetic hip fracture Diagnosis/Problems Diagnosis/Problems (1) Periprosthetic hip fracture Assessment & Plan: Rehab per primary Qualifiers: Qualified Codes: M97.8XXS - Periprosthetic fracture around other internal prosthetic joint, sequela; Z96.649 - Presence of unspecified artificial hip joint (2) Microcytic anemia Status: Chronic Assessment & Plan: Last checked 01/03 Hgb 10.5 Will start on iron (3) Essential (primary) hypertension Status: Chronic Assessment & Plan: Well controlled on current meds (4) Hypothyroidism Assessment & Plan: Cont home synthroid FARHEEN PATINO MD Jan 17, 2017 1:27 pm
--- NOTE | 2017-01-17 16:01 | Physical Therapy Daily Note ---
PT Daily Note-Current Subjective Pt laying Supine in bed upon arrival. Pt agrees to PT. Pain Numeric Pain Scale: 5-Moderate Pain Location: Left Location Body Site: Thigh Pain Description: Ache, Tightness Mental Status Patient Orientation: Person, Place, Time, Situation Transfers Functional [place] Measure 0=Not Assessed/NA 4=Minimal Assistance 1=Total Assistance 5=Supervision or Setup 2=Maximal Assistance 6=Modified [place] 3=Moderate Assistance 7=Complete IndependenceIRFPAI Quality Coding Scale 6 Independent with activity with or without an assistive device 5 Patient requires set up or clean up by helper. Patient completes activity by themselves 4 Supervision or touching assist (CGA). [place] provide cues , steadying assist 3 The helper provides less than half the effort to complete the activity 2 The helper provides more than half the effort to complete the activity 1 Dependent. The helper does all the effort to complete an activity 7 Patient refused to complete or attempt activity 9 The patient did not perform the activity before the current illness or injury 88 Not attempted due to Medical conditions or safety concerns Weight Bearing Right Lower Extremity: Right Full Weight Bearing Left Lower Extremity: Left Weight Bearing/Tolerated with standby assistance Left UE in a sling Exercises Supine Ex: Ankle pumps, Quad Set, Glut sets, Heel Slides, Straight leg raise, Hip abd/add Treatments Pt completes Supine Ex in bed with a couple of rest breaks. Pt rests Supine in bed at end of tx with all needs met. Assessment Current Status: Good Progress Pt reports pain in L thigh when moving for EX. PT Short Term Goals Short Term Goals Time Frame: Jan 11, 2017 Gait (FIM): 2 Distance (FIM): 9=797-57 ft Wheelchair Distance: 100' PT Drug Abuse Resistance Education Officer Goals Drug Abuse Resistance Education Officer Goals PT Intermediate Goals Time Frame: Jan 25, 2017 Transfers (B,C,W/C) (FIM): 6 Sit to Lying (QC): 6 Lying-Sitting on Side/Bed(QC): 6 Sit to Stand (QC): 6 Rollin Roll Left to Right (QC): 6 Chair/Sfa-kd-Nssbb Xfer(QC): 6 Car Transfer (QC): 6 Does the Patient Walk: Yes Gait (FIM): 6 Gait distance (FIM): 3=150 ft Walk 10 feet (QC): 6 Walk 10ft-Uneven Surface(QC): 6 Walk 50ft with 2 Turns (QC): 6 Walk 150 ft (QC): 6 Gait Assistive Device: Cane Small Base Quad (or 1 handed walker) Does the Pt use WC or Scooter?: No Stairs (FIM): 2 # of Steps: 4 1 Step (curb) (QC): 5 4 Steps (QC): 5 12 Steps (QC): 0 (dash) Picking up an Object (QC): 5 PT Plan Problem List Problem List: Activity Tolerance, Functional Strength, Gait Treatment/Plan Treatment Plan: Continue Plan of Care Treatment Plan: Bed Mobility, Education, Functional Activity Tacho, Functional Strength, Group Therapy, Gait, Safety, Therapeutic Exercise, Transfers Treatment Duration: Jan 25, 2017 Frequency: At least 5 of 7 days/Wk (IRF) Estimated Hrs Per Day: 1.5 hours per day Patient and/or Family Agrees t: Yes Safety Risks/Education Patient Education: Correct Positioning, Safety Issues Teaching Recipient: Patient Teaching Methods: Discussion Response to Teaching: Verbalize Understanding Time/GCodes Time In: 1400 Time Out: 1430 Total Billed Treatment 1,EX x2 (30m) VINNY COSME PTA Jan 17, 2017 16:01
[2017-01-17 18:10] VITALS: BP 120/72
[2017-01-17] MEDS: lisINopril 20 MG (ZESTRIL) TAB PO SCH (20:20)
[2017-01-17] MEDS: TEMAZEPAM 15 MG (RESTORIL) CAP PO SCH (20:20)
[2017-01-17] MEDS: PHENAZOPYRIDINE 100 MG (PYRIDIUM) TABLET PO PRN (22:45)
[2017-01-18] MEDS: ONDANSETRON 8 MG (ZOFRAN) ORAL DISSOLVE TAB PO PRN (05:02)
[2017-01-18 06:00] VITALS: BP 118/68
[2017-01-18] MEDS: FERROUS SULF 325 MG (IRON) TAB PO SCH (06:20)
[2017-01-18] MEDS: BETHANECHOL 25 MG (URECHOLINE) TAB PO SCH ×2 (06:20→16:24)
[2017-01-18] MEDS: OMEGA 3 (FISH OIL) 1000 MG CAP PO SCH ×2 (06:20→16:23)
[2017-01-18] MEDS: PANTOPRAZOLE 40 MG (PROTONIX) TAB PO SCH (06:21)
[2017-01-18] MEDS: LEVOTHYROXINE 50 MCG (LEVOTHROID) TAB PO SCH (06:21)
[2017-01-18] MEDS: METOCLOPRAMIDE 10 MG (REGLAN) TAB PO SCH ×3 (06:21→16:24)
[2017-01-18] MEDS: hydrOXYzine (VISTARIL) 25 MG CAP PO SCH ×4 (08:00→20:50)
[2017-01-18] MEDS: HYDROcodone/APAP 10 MG/325 MG (LORTAB) TAB PO PRN ×4 (08:00→20:50)
[2017-01-18] MEDS: PYRIDOXINE (VITAMIN B-6) 50 MG TABLET PO SCH (08:00)
[2017-01-18] MEDS: HYDROCHLOROTHIAZIDE 25 MG (HCTZ) TAB PO SCH (08:00)
[2017-01-18] MEDS: amLODIPine 10 MG (NORVASC) TAB PO SCH (08:00)
[2017-01-18] MEDS: DOCUSATE SODIUM 100 MG (COLACE) CAP PO SCH ×2 (08:00→20:50)
[2017-01-18] MEDS: LACTULOSE SYRUP 10GM/15ML (ENULOSE) 30ML UDC PO SCH ×2 (08:01→20:51)
--- NOTE | 2017-01-18 11:14 | Occupational Ther Daily Note ---
OT Current Status-Daily Note Subjective Pt supine in bed at beginning of tx. Agreeable to therapy. C/o intermittent pain with some movements and position changes but did not rate. Appearance Alert, cooperative. Mental Status/Objective Functional [place] Measure 0=Not Assessed/NA 4=Minimal Assistance 1=Total Assistance 5=Supervision or Setup 2=Maximal Assistance 6=Modified [place] 3=Moderate Assistance 7=Complete [place] ADL-Treatment Pt transferred supine to EOB with SBA and sat EOB to wash, groom, and dress. Functional [place] Measure 0=Not Assessed/NA 4=Minimal Assistance 1=Total Assistance 5=Supervision or Setup 2=Maximal Assistance 6=Modified [place] 3=Moderate Assistance 7=Complete IndependenceIRFPAI Quality Coding Scale 6 Independent with activity with or without an assistive device 5 Patient requires set up or clean up by helper. Patient completes activity by themselves 4 Supervision or touching assist (CGA). [place] provide cues , steadying assist 3 The helper provides less than half the effort to complete the activity 2 The helper provides more than half the effort to complete the activity 1 Dependent. The helper does all the effort to complete an activity 7 Patient refused to complete or attempt activity 9 The patient did not perform the activity before the current illness or injury 88 Not attempted due to Medical conditions or safety concerns Grooming (FIM): 5 (Pt washed face and hands, brushed teeth, and combed hair while EOB with setup. ) Bathing (FIM): 5 (Pt washed 9 parts while sitting EOB with setup (chose to not wash bottom). Used long handled sponge for feet and lower legs. ) Upper Body (FIM): 5 (Pt able to doff and don pullover shirt with setup. ) Lower Body Dressing (FIM): 5 (Pt able to don pants with SBA, using long handled dressing stick with min verbal cues to don pants and using sock aid to don socks with SBA. ) Toileting (FIM): 5 (Pt able to manage hygiene and clothing, both up and down, with supervision. BSC, grab bars, CHW) Toilet/Commode Transfer (FIM): 5 (Pt able to transfer on and off BSC with supervision for safety. BSC, grab bars, CHW) Pt walked with CHW and SBA to bathroom to toilet. Pt transferred from toilet to W/C with SBA and CHW. Pt was transported to shower room via W/C and practiced transferring on and off transfer tub bench. Pt was able to transfer on and off transfer tub bench with CHW and SBA except for needing CGA to stand from transfer tub bench. This did cause pt pain in L hip that required a recovery period. She will need a transfer tub bench at home. Other Treatment Pt was transported to gym and used arm bike for 8 minutes at 10 z[place], requiring 3 recovery periods (decrease of 2 minutes and 1 recovery period). Pt was transported to room via W/C and transferred into recliner with CHW and SBA. Pt in recliner with all needs met at end of tx. OT Short Term Goals Short Term Goals Time Frame: Jan 11, 2017 Bathing(FIM): 4 Upper Body Dressing(FIM): 3 Lower Body Dressing(FIM): 3 Toileting(FIM): 3 Toilet/Commode Transfer(FIM): 4 Additional Short Term Goals: 2-Verbalize Understanding, 3-ImproveStrength/Tacho 1=Demonstrate adherence to instructed precautions during ADL tasks. 2=Patient will verbalize/demonstrate understanding of assistive devices/ modifications for ADL. 3=Patient will improve strength/tolerance for activity to enable patient to perform ADL's. OT Fluid Jet Cutter Operator Goals Fluid Jet Cutter Operator Goals Time Frame: Jan 25, 2017 Eating (FIM): 6 Eating (QC): 6 Groomin Oral Hygiene (QC): 6 Bathing(FIM): 5 Shower/Bathe Self (QC): 5 Upper Body Dressing(FIM): 5 Upper Body Dressing (QC): 5 Lower Body Dressing(FIM): 5 Lower Body Dressing (QC): 5 On/Off Footwear (QC): 5 Toileting(FIM): 6 Toileting Hygiene (QC): 5 Toilet/Commode Transfer(FIM): 5 Toilet/Commode Transfer (QC): 5 Shower Transfer(FIM): 5 Additional Goals: 2-Verbalize Understanding, 3-ImproveStrength/Tacho 1=Demonstrate adherence to instructed precautions during ADL tasks. 2=Patient will verbalize/demonstrate understanding of assistive devices/ modifications for ADL. 3=Patient will improve strength/tolerance for activity to enable patient to perform ADL's. OT Education/Plan Problem List/Assessment Pt would benefit from skilled OT to increase her independence in basic self care to allow her to safely return to her home and to decrease caregiver burden. Discharge Recommendations Plan/Recommendations: Continue POC Treatment Plan/Plan of Care Patient would benefit from OT for education, treatment and training to promote independence in ADL's, mobility, safety and/or upper extremity function for ADL' s. Plan of Care: ADL Retraining, Functional Mobility, Group Exercise/Act as Ind ( education, exercise, funct activity, activ tolerance, ), UE Funct Exercise/Act, UE Neuromus Re-Ed/Coord Treatment Duration: Jan 25, 2017 Frequency: At least 5 of 7 days/Wk (IRF) Estimated Hrs Per Day: 1.5 hours per day Agreement: Yes Rehab Potential: Good Time/GCodes Start Time: 08:27 Stop Time: 09:35 Total Time Billed (hr/min): 68 Billed Treatment Time visit, ADL 38 minutes, exercise 30 minutes. YAMILET JERONIMO OT Jan 18, 2017 11:14
--- NOTE | 2017-01-18 11:16 | Physical Therapy Daily Note ---
PT Daily Note-Current Subjective Pt. agrees to Rx. States she is feeling much better and much more confident Mental Status Patient Orientation: Normal For Age Transfers Functional [place] Measure 0=Not Assessed/NA 4=Minimal Assistance 1=Total Assistance 5=Supervision or Setup 2=Maximal Assistance 6=Modified [place] 3=Moderate Assistance 7=Complete IndependenceIRFPAI Quality Coding Scale 6 Independent with activity with or without an assistive device 5 Patient requires set up or clean up by helper. Patient completes activity by themselves 4 Supervision or touching assist (CGA). [place] provide cues , steadying assist 3 The helper provides less than half the effort to complete the activity 2 The helper provides more than half the effort to complete the activity 1 Dependent. The helper does all the effort to complete an activity 7 Patient refused to complete or attempt activity 9 The patient did not perform the activity before the current illness or injury 88 Not attempted due to Medical conditions or safety concerns Transfers (B, C, W/C) (FIM): 6 Scootin Rollin Supine to/from Sit: 6 Sit to/from Stand: 6 Car Transfer (QC): 6 Weight Bearing Right Lower Extremity: Right Full Weight Bearing Left Lower Extremity: Left Weight Bearing/Tolerated with standby assistance Left UE in a sling Gait Training Does the Patient Walk?: Yes Gait (FIM): 3 Distance (FIM): 3=150 ft (x1, 75x2) Gait Level of Assist: 5 Gait Persons Needed: 1 Gait Assistive Device: Walker Center-Hold Stair Training Stair Training: Handrails/: 1 handrail Stairs (FIM): 2 #of Steps: 4 Stairs: Pattern: Step to Level of Assist: 3 pt. a little fearful to try steps but did well with instruction and demonstration on sequence as well as mod assist for balance jose g to descend steps Exercises Seated Therapy Exercises: Ankle pumps, Sit to stand, Long arc quads, Hip flexion, Hip abd/add Seated Reps: 15 Treatments toileted indep Assessment Current Status: Good Progress near up ad paulina status PT Short Term Goals Short Term Goals Time Frame: Jan 11, 2017 Gait (FIM): 2 Distance (FIM): 9=614-34 ft Wheelchair Distance: 100' PT Body Sander Goals Body Sander Goals PT Custodial Goals Time Frame: Jan 25, 2017 Transfers (B,C,W/C) (FIM): 6 Sit to Lying (QC): 6 Lying-Sitting on Side/Bed(QC): 6 Sit to Stand (QC): 6 Rollin Roll Left to Right (QC): 6 Chair/Euk-ff-Hpihl Xfer(QC): 6 Car Transfer (QC): 6 Does the Patient Walk: Yes Gait (FIM): 6 Gait distance (FIM): 3=150 ft Walk 10 feet (QC): 6 Walk 10ft-Uneven Surface(QC): 6 Walk 50ft with 2 Turns (QC): 6 Walk 150 ft (QC): 6 Gait Assistive Device: Cane Small Base Quad (or 1 handed walker) Does the Pt use WC or Scooter?: No Stairs (FIM): 2 # of Steps: 4 1 Step (curb) (QC): 5 4 Steps (QC): 5 12 Steps (QC): 0 (dash) Picking up an Object (QC): 5 PT Plan Treatment/Plan Treatment Plan: Continue Plan of Care Treatment Plan: Bed Mobility, Education, Functional Activity Tacho, Functional Strength, Group Therapy, Gait, Safety, Therapeutic Exercise, Transfers Treatment Duration: Jan 25, 2017 Frequency: At least 5 of 7 days/Wk (IRF) Estimated Hrs Per Day: 1.5 hours per day Patient and/or Family Agrees t: Yes Safety Risks/Education Patient Education: Gait Training, Transfer Techniques, Steps, Correct Positioning, Disease Process, Safety Issues Teaching Recipient: Patient Teaching Methods: Demonstration, Discussion Response to Teaching: Verbalize Understanding, Return Demonstration, Reinforcement Needed Time/GCodes Time In: 1015 Time Out: 1115 Total Billed Treatment Time: 60 Total Billed Treatment 1,GT30m,FA30m G Codes Necessary: AYLA Sherman PTA Jan 18, 2017 11:16
--- NOTE | 2017-01-18 11:53 | Progress Note-Urology ---
Progress Note-Urology Progress Notes/Assess & Plan Progress/Assessment & Plan PVR YESTERDAY 11CC Final Diagnosis URINE RETENTION ZAHRA JEFF MD Jan 18, 2017 11:53 am
--- NOTE | 2017-01-18 12:47 | Occupational Ther Daily Note ---
OT Current Status-Daily Note Subjective Pt care transferred from PT in gym. Agreeable to therapy. Pt c/o pain in L hip from doing stairs but did not rate. Appearance Alert, cooperative. Mental Status/Objective Functional [place] Measure 0=Not Assessed/NA 4=Minimal Assistance 1=Total Assistance 5=Supervision or Setup 2=Maximal Assistance 6=Modified [place] 3=Moderate Assistance 7=Complete [place] ADL-Treatment Functional [place] Measure 0=Not Assessed/NA 4=Minimal Assistance 1=Total Assistance 5=Supervision or Setup 2=Maximal Assistance 6=Modified [place] 3=Moderate Assistance 7=Complete IndependenceIRFPAI Quality Coding Scale 6 Independent with activity with or without an assistive device 5 Patient requires set up or clean up by helper. Patient completes activity by themselves 4 Supervision or touching assist (CGA). [place] provide cues , steadying assist 3 The helper provides less than half the effort to complete the activity 2 The helper provides more than half the effort to complete the activity 1 Dependent. The helper does all the effort to complete an activity 7 Patient refused to complete or attempt activity 9 The patient did not perform the activity before the current illness or injury 88 Not attempted due to Medical conditions or safety concerns Other Treatment Pt's L elbow ROM was checked with pt being able to extend the elbow to approx - 10 degrees, which is within functional limits. L forearm pronation/supination, wrist, and hand AROM all within functional limits. Pt removed beads from theraputty (red, medium resistance) and educated in 10 theraputty exercises to do with both hands for strengthening of hands and arms to improve transfers. Pt able to return demonstration of exercises with both hands by completing all 10 exercises. Pt transferred from chair to W/C with SBA and CHW and was transported to room via W/C. Pt transferred from W/C to recliner with SBA and CHW. Pt in recliner with all needs met at end of tx. Education OT Patient Education: Exercise program, Progress toward Goal/Update tx plan, Use of adapted equipment Teaching Recipient: Patient Teaching Methods: Demonstration, Discussion Response to Teaching: Verbalize Understanding, Return Demonstration, Reinforcement Needed OT Short Term Goals Short Term Goals Time Frame: Jan 11, 2017 Bathing(FIM): 4 Upper Body Dressing(FIM): 3 Lower Body Dressing(FIM): 3 Toileting(FIM): 3 Toilet/Commode Transfer(FIM): 4 Additional Short Term Goals: 2-Verbalize Understanding, 3-ImproveStrength/Tacho 1=Demonstrate adherence to instructed precautions during ADL tasks. 2=Patient will verbalize/demonstrate understanding of assistive devices/ modifications for ADL. 3=Patient will improve strength/tolerance for activity to enable patient to perform ADL's. OT Mcfp Goals Jet Blade Polisher Goals Time Frame: Jan 25, 2017 Eating (FIM): 6 Eating (QC): 6 Groomin Oral Hygiene (QC): 6 Bathing(FIM): 5 Shower/Bathe Self (QC): 5 Upper Body Dressing(FIM): 5 Upper Body Dressing (QC): 5 Lower Body Dressing(FIM): 5 Lower Body Dressing (QC): 5 On/Off Footwear (QC): 5 Toileting(FIM): 6 Toileting Hygiene (QC): 5 Toilet/Commode Transfer(FIM): 5 Toilet/Commode Transfer (QC): 5 Shower Transfer(FIM): 5 Additional Goals: 2-Verbalize Understanding, 3-ImproveStrength/Tacho 1=Demonstrate adherence to instructed precautions during ADL tasks. 2=Patient will verbalize/demonstrate understanding of assistive devices/ modifications for ADL. 3=Patient will improve strength/tolerance for activity to enable patient to perform ADL's. OT Education/Plan Problem List/Assessment Pt would benefit from skilled OT to increase her independence in basic self care to allow her to safely return to her home and to decrease caregiver burden. Discharge Recommendations Plan/Recommendations: Continue POC Treatment Plan/Plan of Care Patient would benefit from OT for education, treatment and training to promote independence in ADL's, mobility, safety and/or upper extremity function for ADL' s. Plan of Care: ADL Retraining, Functional Mobility, Group Exercise/Act as Ind ( education, exercise, funct activity, activ tolerance, ), UE Funct Exercise/Act, UE Neuromus Re-Ed/Coord Treatment Duration: Jan 25, 2017 Frequency: At least 5 of 7 days/Wk (IRF) Estimated Hrs Per Day: 1.5 hours per day Agreement: Yes Rehab Potential: Good Time/GCodes Start Time: 11:15 Stop Time: 11:45 Total Time Billed (hr/min): 30 Billed Treatment Time visit, exercise 30 minutes YAMILET JERONIMO OT Jan 18, 2017 12:47
--- NOTE | 2017-01-18 13:38 | Physical Therapy Daily Note ---
PT Daily Note-Current Subjective Pt. agrees to Rx. Sister visiting. Feels she will be ready to DC by [place] Pain Numeric Pain Scale: 0-No Pain Mental Status Patient Orientation: Normal For Age Transfers Functional [place] Measure 0=Not Assessed/NA 4=Minimal Assistance 1=Total Assistance 5=Supervision or Setup 2=Maximal Assistance 6=Modified [place] 3=Moderate Assistance 7=Complete IndependenceIRFPAI Quality Coding Scale 6 Independent with activity with or without an assistive device 5 Patient requires set up or clean up by helper. Patient completes activity by themselves 4 Supervision or touching assist (CGA). [place] provide cues , steadying assist 3 The helper provides less than half the effort to complete the activity 2 The helper provides more than half the effort to complete the activity 1 Dependent. The helper does all the effort to complete an activity 7 Patient refused to complete or attempt activity 9 The patient did not perform the activity before the current illness or injury 88 Not attempted due to Medical conditions or safety concerns in out bed min to CGA. Trialed in bed from window side or pts right LE entering 1st. This required some effort on pts part as well as instruction from this ROLL ON WORKER Weight Bearing Right Lower Extremity: Right Full Weight Bearing Left Lower Extremity: Left Weight Bearing/Tolerated with standby assistance Left UE in a sling Gait Training Gait Assistive Device: Walker Center-Hold [id number] SBA no LOB, fig 8s and tight turns 360 degrees no LOB Exercises Supine Ex: Ankle pumps Seated Therapy Exercises: Ankle pumps, Sit to stand, Long arc quads, Hip flexion, Hip abd/add Seated Reps: 12 Treatments toileted x 2 during Rx managing pants and cleaning indep Assessment Current Status: Good Progress PT Short Term Goals Short Term Goals Time Frame: Jan 11, 2017 Gait (FIM): 2 Distance (FIM): 0=393-87 ft Wheelchair Distance: 100' PT Laborer [place] Goals Correction Goals PT Correction Goals Time Frame: Jan 25, 2017 Transfers (B,C,W/C) (FIM): 6 Sit to Lying (QC): 6 Lying-Sitting on Side/Bed(QC): 6 Sit to Stand (QC): 6 Rollin Roll Left to Right (QC): 6 Chair/Kvj-rx-Frrko Xfer(QC): 6 Car Transfer (QC): 6 Does the Patient Walk: Yes Gait (FIM): 6 Gait distance (FIM): 3=150 ft Walk 10 feet (QC): 6 Walk 10ft-Uneven Surface(QC): 6 Walk 50ft with 2 Turns (QC): 6 Walk 150 ft (QC): 6 Gait Assistive Device: Cane Small Base Quad (or 1 handed walker) Does the Pt use WC or Scooter?: No Stairs (FIM): 2 # of Steps: 4 1 Step (curb) (QC): 5 4 Steps (QC): 5 12 Steps (QC): 0 (dash) Picking up an Object (QC): 5 PT Plan Treatment/Plan Treatment Plan: Continue Plan of Care Treatment Plan: Bed Mobility, Education, Functional Activity Tacho, Functional Strength, Group Therapy, Gait, Safety, Therapeutic Exercise, Transfers Treatment Duration: Jan 25, 2017 Frequency: At least 5 of 7 days/Wk (IRF) Estimated Hrs Per Day: 1.5 hours per day Patient and/or Family Agrees t: Yes Safety Risks/Education Patient Education: Gait Training, Transfer Techniques Teaching Recipient: Patient Teaching Methods: Demonstration, Discussion Response to Teaching: Verbalize Understanding, Return Demonstration, Reinforcement Needed Time/GCodes Time In: 1300 Time Out: 1330 Total Billed Treatment Time: 30 Total Billed Treatment 1,EX10,FA20 G Codes Necessary: No AYLA MENDEZ ROLL ON WORKER Jan 18, 2017 13:38
[2017-01-18 18:00] VITALS: BP 111/59
[2017-01-18] MEDS ORDERED: INFLUENZA TRIvalent 2017-2018 0.5 ML/45 MCG SYR IM ONE (18:15)
[2017-01-18 19:23] VITALS: BP 111/59
[2017-01-18] MEDS: TEMAZEPAM 15 MG (RESTORIL) CAP PO SCH (20:50)
[2017-01-18] MEDS: lisINopril 20 MG (ZESTRIL) TAB PO SCH (20:50)
[2017-01-19 03:00] VITALS: BP 146/76
[2017-01-19] MEDS: HYDROcodone/APAP 10 MG/325 MG (LORTAB) TAB PO PRN ×4 (05:42→23:36)
[2017-01-19] MEDS: BETHANECHOL 25 MG (URECHOLINE) TAB PO SCH (06:26)
[2017-01-19] MEDS: OMEGA 3 (FISH OIL) 1000 MG CAP PO SCH ×2 (06:26→17:13)
[2017-01-19] MEDS: PANTOPRAZOLE 40 MG (PROTONIX) TAB PO SCH (06:26)
[2017-01-19] MEDS: FERROUS SULF 325 MG (IRON) TAB PO SCH (06:26)
[2017-01-19] MEDS: LEVOTHYROXINE 50 MCG (LEVOTHROID) TAB PO SCH (06:26)
[2017-01-19] MEDS: METOCLOPRAMIDE 10 MG (REGLAN) TAB PO SCH ×3 (06:26→17:13)
[2017-01-19] MEDS: LACTULOSE SYRUP 10GM/15ML (ENULOSE) 30ML UDC PO SCH ×2 (08:50→19:41)
[2017-01-19] MEDS: HYDROCHLOROTHIAZIDE 25 MG (HCTZ) TAB PO SCH (08:55)
[2017-01-19] MEDS: DOCUSATE SODIUM 100 MG (COLACE) CAP PO SCH ×2 (08:55→19:41)
[2017-01-19] MEDS: CLOPIDOGREL 75 MG (PLAVIX) TABLET PO SCH (08:55)
[2017-01-19] MEDS: PHENAZOPYRIDINE 100 MG (PYRIDIUM) TABLET PO PRN (08:56)
[2017-01-19] MEDS: amLODIPine 10 MG (NORVASC) TAB PO SCH (08:56)
[2017-01-19] MEDS: hydrOXYzine (VISTARIL) 25 MG CAP PO SCH ×4 (08:56→19:40)
[2017-01-19] MEDS: PYRIDOXINE (VITAMIN B-6) 50 MG TABLET PO SCH (08:56)
--- NOTE | 2017-01-19 10:54 | Progress Note-Urology ---
Progress Note-Urology Progress Notes/Assess & Plan Progress/Assessment & Plan VOIDING WELL BUT HAS SX OF UTI Final Diagnosis RETENTION AND UTI ZAHRA JEFF MD Jan 19, 2017 10:54 am
--- NOTE | 2017-01-19 10:57 | Physical Therapy Daily Note ---
PT Daily Note-Current Subjective Pt. c/o she has been up many times in the night urinating and has such burning and pain . Pt. whincing to turns and move holding her abdomen. Dr Ochoa here to assess pt. Pt. refuses therapy. Transfers Functional [place] Measure 0=Not Assessed/NA 4=Minimal Assistance 1=Total Assistance 5=Supervision or Setup 2=Maximal Assistance 6=Modified [place] 3=Moderate Assistance 7=Complete IndependenceIRFPAI Quality Coding Scale 6 Independent with activity with or without an assistive device 5 Patient requires set up or clean up by helper. Patient completes activity by themselves 4 Supervision or touching assist (CGA). [place] provide cues , steadying assist 3 The helper provides less than half the effort to complete the activity 2 The helper provides more than half the effort to complete the activity 1 Dependent. The helper does all the effort to complete an activity 7 Patient refused to complete or attempt activity 9 The patient did not perform the activity before the current illness or injury 88 Not attempted due to Medical conditions or safety concerns Weight Bearing Right Lower Extremity: Right Full Weight Bearing Left Lower Extremity: Left Weight Bearing/Tolerated with standby assistance Left UE in a sling Assessment Current Status: No Treatment/Other Tests pt. in pain and discomfort from apparent UTI PT Short Term Goals Short Term Goals Time Frame: Jan 11, 2017 Gait (FIM): 2 Distance (FIM): 4=314-56 ft Wheelchair Distance: 100' PT Shirring Machine Operator Automatic Goals Shirring Machine Operator Automatic Goals PT Halfway Goals Time Frame: Jan 25, 2017 Transfers (B,C,W/C) (FIM): 6 Sit to Lying (QC): 6 Lying-Sitting on Side/Bed(QC): 6 Sit to Stand (QC): 6 Rollin Roll Left to Right (QC): 6 Chair/Kmg-qm-Ilxrm Xfer(QC): 6 Car Transfer (QC): 6 Does the Patient Walk: Yes Gait (FIM): 6 Gait distance (FIM): 3=150 ft Walk 10 feet (QC): 6 Walk 10ft-Uneven Surface(QC): 6 Walk 50ft with 2 Turns (QC): 6 Walk 150 ft (QC): 6 Gait Assistive Device: Cane Small Base Quad (or 1 handed walker) Does the Pt use WC or Scooter?: No Stairs (FIM): 2 # of Steps: 4 1 Step (curb) (QC): 5 4 Steps (QC): 5 12 Steps (QC): 0 (dash) Picking up an Object (QC): 5 PT Plan Treatment/Plan Treatment Plan: Continue Plan of Care Treatment Plan: Bed Mobility, Education, Functional Activity Tacho, Functional Strength, Group Therapy, Gait, Safety, Therapeutic Exercise, Transfers Treatment Duration: Jan 25, 2017 Frequency: At least 5 of 7 days/Wk (IRF) Estimated Hrs Per Day: 1.5 hours per day Patient and/or Family Agrees t: Yes Time/GCodes Time In: 1150 Time Out: 1150 Total Billed Treatment Time: 0 Total Billed Treatment 1,No Chg, no Rx G Codes Necessary: No AYLA MENDEZ MONITOR WORKER Jan 19, 2017 10:57
[2017-01-19] MEDS: PHENAZOPYRIDINE 100 MG (PYRIDIUM) TABLET PO SCH ×2 (12:57→17:13)
[2017-01-19 15:22] LABS: KETONES,URINE NEGATIVE (NEGATIVE); LEUKOCYTE ESTERASE ,URINE 2+ (NEGATIVE); NITRITE,URINE POSITIVE (NEGATIVE); PH,URINE 6.5 (5-9); PROTEIN,URINE 1+ (NEGATIVE); UROBILINOGEN,URINE 8 MG/DL (NORMAL)
[2017-01-19 15:36] LABS: BILIRUBIN,URINE 3+ (NEGATIVE); WBC,URINE 25-50 /HPF
[2017-01-19 18:00] VITALS: BP 119/73
[2017-01-19] MEDS: TEMAZEPAM 15 MG (RESTORIL) CAP PO SCH (19:40)
[2017-01-19] MEDS: NITROFURANTOIN 100 MG (MACROBID) CAPSULE PO SCH (19:40)
[2017-01-19] MEDS: lisINopril 20 MG (ZESTRIL) TAB PO SCH (19:41)
[2017-01-20] MEDS: HYDROcodone/APAP 10 MG/325 MG (LORTAB) TAB PO PRN ×5 (03:40→21:53)
[2017-01-20 05:12] VITALS: BP 141/82
[2017-01-20] MEDS: PANTOPRAZOLE 40 MG (PROTONIX) TAB PO SCH (05:53)
[2017-01-20] MEDS: OMEGA 3 (FISH OIL) 1000 MG CAP PO SCH ×2 (05:53→17:16)
[2017-01-20] MEDS: FERROUS SULF 325 MG (IRON) TAB PO SCH ×2 (05:53→20:31)
[2017-01-20] MEDS: LEVOTHYROXINE 50 MCG (LEVOTHROID) TAB PO SCH (05:53)
[2017-01-20] MEDS: METOCLOPRAMIDE 10 MG (REGLAN) TAB PO SCH ×3 (05:55→17:16)
[2017-01-20] MEDS: HYDROCHLOROTHIAZIDE 25 MG (HCTZ) TAB PO SCH (09:09)
[2017-01-20] MEDS: NITROFURANTOIN 100 MG (MACROBID) CAPSULE PO SCH ×2 (09:09→20:17)
[2017-01-20] MEDS: PYRIDOXINE (VITAMIN B-6) 50 MG TABLET PO SCH (09:09)
[2017-01-20] MEDS: hydrOXYzine (VISTARIL) 25 MG CAP PO SCH ×4 (09:09→20:17)
[2017-01-20] MEDS: amLODIPine 10 MG (NORVASC) TAB PO SCH (09:09)
[2017-01-20] MEDS: PHENAZOPYRIDINE 100 MG (PYRIDIUM) TABLET PO SCH ×3 (09:09→17:16)
[2017-01-20] MEDS: DOCUSATE SODIUM 100 MG (COLACE) CAP PO SCH ×2 (09:11→20:17)
[2017-01-20] MEDS: LACTULOSE SYRUP 10GM/15ML (ENULOSE) 30ML UDC PO SCH ×2 (09:11→19:53)
--- NOTE | 2017-01-20 12:03 | Progress Note-Hospitalist ---
Progress Note Progress Notes/Assess & Plan Date Seen 01/20/17 Time Seen by Provider: 11:00 Diagonsis/Assessment & Plan Pt has UTI due to catheter last week Bowels are moving DC planned for Using IS AFVSS, pleasant, improved, chronically ill RRR, CTAB except diminished in LLL No edema Assessment: Hip fracture Left humerus fracture h/o lung cancer right s/p resection Urinary tract infection catheter associated Constipation Plan: IS Monitor pt Abx GERDA ESPINO DO Jan 20, 2017 12:03
[2017-01-20 18:17] VITALS: BP 115/70
[2017-01-20] MEDS: lisINopril 20 MG (ZESTRIL) TAB PO SCH (20:17)
[2017-01-20] MEDS: TEMAZEPAM 15 MG (RESTORIL) CAP PO SCH (20:17)
[2017-01-21] MEDS: HYDROcodone/APAP 10 MG/325 MG (LORTAB) TAB PO PRN ×5 (04:50→20:47)
[2017-01-21 05:02] VITALS: BP 155/81
[2017-01-21] MEDS: LEVOTHYROXINE 50 MCG (LEVOTHROID) TAB PO SCH (06:02)
[2017-01-21] MEDS: OMEGA 3 (FISH OIL) 1000 MG CAP PO SCH ×2 (06:02→17:05)
[2017-01-21] MEDS: PANTOPRAZOLE 40 MG (PROTONIX) TAB PO SCH (06:02)
[2017-01-21] MEDS: METOCLOPRAMIDE 10 MG (REGLAN) TAB PO SCH ×3 (06:03→17:03)
[2017-01-21] MEDS: PHENAZOPYRIDINE 100 MG (PYRIDIUM) TABLET PO SCH ×3 (08:53→17:03)
[2017-01-21] MEDS: PYRIDOXINE (VITAMIN B-6) 50 MG TABLET PO SCH (08:53)
[2017-01-21] MEDS: DOCUSATE SODIUM 100 MG (COLACE) CAP PO SCH ×2 (08:53→20:47)
[2017-01-21] MEDS: NITROFURANTOIN 100 MG (MACROBID) CAPSULE PO SCH ×2 (08:53→20:47)
[2017-01-21] MEDS: HYDROCHLOROTHIAZIDE 25 MG (HCTZ) TAB PO SCH (08:53)
[2017-01-21] MEDS: CLOPIDOGREL 75 MG (PLAVIX) TABLET PO SCH (08:53)
[2017-01-21] MEDS: amLODIPine 10 MG (NORVASC) TAB PO SCH (08:53)
[2017-01-21] MEDS: hydrOXYzine (VISTARIL) 25 MG CAP PO SCH ×4 (08:53→20:47)
[2017-01-21] MEDS: LACTULOSE SYRUP 10GM/15ML (ENULOSE) 30ML UDC PO SCH ×2 (08:56→20:48)
--- NOTE | 2017-01-21 11:22 | Physical Therapy Daily Note ---
PT Daily Note-Current Subjective Pt. states she feels better than she did on Saturday and is ready for Rx Pain Numeric Pain Scale: 0-No Pain Mental Status Patient Orientation: Normal For Age Attachments: Other-See Comments (sling LUE) Transfers Functional [place] Measure 0=Not Assessed/NA 4=Minimal Assistance 1=Total Assistance 5=Supervision or Setup 2=Maximal Assistance 6=Modified [place] 3=Moderate Assistance 7=Complete IndependenceIRFPAI Quality Coding Scale 6 Independent with activity with or without an assistive device 5 Patient requires set up or clean up by helper. Patient completes activity by themselves 4 Supervision or touching assist (CGA). [place] provide cues , steadying assist 3 The helper provides less than half the effort to complete the activity 2 The helper provides more than half the effort to complete the activity 1 Dependent. The helper does all the effort to complete an activity 7 Patient refused to complete or attempt activity 9 The patient did not perform the activity before the current illness or injury 88 Not attempted due to Medical conditions or safety concerns Transfers (B, C, W/C) (FIM): 6 Scootin Rollin Supine to/from Sit: 6 Sit to/from Stand: 6 pt. states she had had a lot of experience TRFing this weekend as she had to get up and down b/c of frequent urination Weight Bearing Right Lower Extremity: Right Full Weight Bearing Left Lower Extremity: Left Weight Bearing/Tolerated with standby assistance Left UE in a sling Gait Training Does the Patient Walk?: Yes Gait (FIM): 5 Distance (FIM): 3=150 ft (175) Gait Level of Assist: 5 Gait Persons Needed: 1 Gait Assistive Device: Walker Center-Hold slow with standing rest breaks Exercises Supine Ex: Ankle pumps, Rolling, Heel Slides, Short Arc Quads, Hip abd/add Supine Reps: 10 Standing: Hip Abduction, Heel/toe raises, 3 way Ex=Flex, Abd, Ext, Sit to Stand Standing Reps: 15 NuStep Minutes: 10 NuStep Workload: 2 Treatments toileted indep Assessment Current Status: Good Progress PT Short Term Goals Short Term Goals Time Frame: Jan 11, 2017 Gait (FIM): 2 Distance (FIM): 1=789-49 ft Wheelchair Distance: 100' PT Patient Svcs Mgr Goals Fpc Goals PT Patient Svcs Mgr Goals Time Frame: Jan 25, 2017 Transfers (B,C,W/C) (FIM): 6 Sit to Lying (QC): 6 Lying-Sitting on Side/Bed(QC): 6 Sit to Stand (QC): 6 Rollin Roll Left to Right (QC): 6 Chair/Ehf-fs-Quqwm Xfer(QC): 6 Car Transfer (QC): 6 Does the Patient Walk: Yes Gait (FIM): 6 Gait distance (FIM): 3=150 ft Walk 10 feet (QC): 6 Walk 10ft-Uneven Surface(QC): 6 Walk 50ft with 2 Turns (QC): 6 Walk 150 ft (QC): 6 Gait Assistive Device: Cane Small Base Quad (or 1 handed walker) Does the Pt use WC or Scooter?: No Stairs (FIM): 2 # of Steps: 4 1 Step (curb) (QC): 5 4 Steps (QC): 5 12 Steps (QC): 0 (dash) Picking up an Object (QC): 5 PT Plan Treatment/Plan Treatment Plan: Continue Plan of Care Treatment Plan: Bed Mobility, Education, Functional Activity Tacho, Functional Strength, Group Therapy, Gait, Safety, Therapeutic Exercise, Transfers Treatment Duration: Jan 25, 2017 Frequency: At least 5 of 7 days/Wk (IRF) Estimated Hrs Per Day: 1.5 hours per day Patient and/or Family Agrees t: Yes Safety Risks/Education Patient Education: Gait Training, Transfer Techniques, Correct Positioning, Disease Process, Safety Issues Teaching Recipient: Patient Teaching Methods: Demonstration, Discussion Response to Teaching: Verbalize Understanding, Return Demonstration, Reinforcement Needed Time/GCodes Time In: 1015 Time Out: 1115 Total Billed Treatment Time: 60 Total Billed Treatment 1,FA25m,GT15m,EX20m G Codes Necessary: AYLA Sherman SEW ON OPERATOR Jan 21, 2017 11:22
--- NOTE | 2017-01-21 12:06 | Occupational Ther Daily Note ---
OT Current Status-Daily Note Subjective Pt seen in room, up in bed, agreeable to OT. Reported that she had been up and down many times over the weekend to go to the bathroom and transfers were better. Pt reported more discomfort in L arm and less in L leg. Appearance Alert, cooperative Mental Status/Objective Functional [place] Measure 0=Not Assessed/NA 4=Minimal Assistance 1=Total Assistance 5=Supervision or Setup 2=Maximal Assistance 6=Modified [place] 3=Moderate Assistance 7=Complete [place] ADL-Treatment Pt declined to bathe today but did agree to change clothes. Pt got out of bed without help and walked to the bathroom with SBA, walker for ADLs. Functional [place] Measure 0=Not Assessed/NA 4=Minimal Assistance 1=Total Assistance 5=Supervision or Setup 2=Maximal Assistance 6=Modified [place] 3=Moderate Assistance 7=Complete IndependenceIRFPAI Quality Coding Scale 6 Independent with activity with or without an assistive device 5 Patient requires set up or clean up by helper. Patient completes activity by themselves 4 Supervision or touching assist (CGA). [place] provide cues , steadying assist 3 The helper provides less than half the effort to complete the activity 2 The helper provides more than half the effort to complete the activity 1 Dependent. The helper does all the effort to complete an activity 7 Patient refused to complete or attempt activity 9 The patient did not perform the activity before the current illness or injury 88 Not attempted due to Medical conditions or safety concerns Grooming (FIM): 6 (Stood at sink to brush teeth, wash face and hands, brush hair. Used walker and sink for balance as needed. ) Lower Body Dressing (FIM): 5 (Pt was able to get pants off using dressing stick. Also used it to doff slipper socks. Donned pants with dressing atick and used soft sock aid for donning slipper socks. Stood with CHW with no LOB to manage clothing over hips.) Toileting (FIM): 6 (Managed clothing and hygiene with no LOB. Safely stood to pull pants up. used taller toilet, grab bar, CHW.) Toilet/Commode Transfer (FIM): 6 (On/off tall toilet with no LOB or assistance. grab bar, CHW.) Other Treatment Pt walked to commons area with SBA, CHW. Was able to get on/off chair with arms carefully, pushing up with R arm. Pt did tabletop activity with 2# weight on R arm for placing pegs, then 1# for removing them. Pt reported some discomfort in R shoulder and said, "I'm sure I have a rotator cuff tear from over 30 years ago." Also did tabletop card activity with 1# weight, for strengthening for safe transfers and ADLs. Pt walked back to room with SBA, CHW and was left up in recliner, all needs met. Education OT Patient Education: Progress toward Goal/Update tx plan, Purpose of tx/ functional activities Teaching Recipient: Patient Teaching Methods: Discussion Response to Teaching: Verbalize Understanding OT Short Term Goals Short Term Goals Time Frame: Jan 11, 2017 Bathing(FIM): 4 Upper Body Dressing(FIM): 3 Lower Body Dressing(FIM): 3 Toileting(FIM): 3 Toilet/Commode Transfer(FIM): 4 Additional Short Term Goals: 2-Verbalize Understanding, 3-ImproveStrength/Tacho 1=Demonstrate adherence to instructed precautions during ADL tasks. 2=Patient will verbalize/demonstrate understanding of assistive devices/ modifications for ADL. 3=Patient will improve strength/tolerance for activity to enable patient to perform ADL's. OT Medical Dosimetrist Goals Snf Goals Time Frame: Jan 25, 2017 Eating (FIM): 6 Eating (QC): 6 Groomin Oral Hygiene (QC): 6 Bathing(FIM): 5 Shower/Bathe Self (QC): 5 Upper Body Dressing(FIM): 5 Upper Body Dressing (QC): 5 Lower Body Dressing(FIM): 5 Lower Body Dressing (QC): 5 On/Off Footwear (QC): 5 Toileting(FIM): 6 Toileting Hygiene (QC): 5 Toilet/Commode Transfer(FIM): 5 Toilet/Commode Transfer (QC): 5 Shower Transfer(FIM): 5 Additional Goals: 2-Verbalize Understanding, 3-ImproveStrength/Tacho 1=Demonstrate adherence to instructed precautions during ADL tasks. 2=Patient will verbalize/demonstrate understanding of assistive devices/ modifications for ADL. 3=Patient will improve strength/tolerance for activity to enable patient to perform ADL's. OT Education/Plan Problem List/Assessment Pt would benefit from skilled OT to increase her independence in basic self care to allow her to safely return to her home and to decrease caregiver burden. Discharge Recommendations Plan/Recommendations: Continue POC Treatment Plan/Plan of Care Patient would benefit from OT for education, treatment and training to promote independence in ADL's, mobility, safety and/or upper extremity function for ADL' s. Plan of Care: ADL Retraining, Functional Mobility, Group Exercise/Act as Ind ( education, exercise, funct activity, activ tolerance, ), UE Funct Exercise/Act, UE Neuromus Re-Ed/Coord Treatment Duration: Jan 25, 2017 Frequency: At least 5 of 7 days/Wk (IRF) Estimated Hrs Per Day: 1.5 hours per day Agreement: Yes Rehab Potential: Good Time/GCodes Start Time: 08:30 Stop Time: 09:30 Total Time Billed (hr/min): 60 Billed Treatment Time visit, 40 minutes ADL, 20 minutes exercise YAMILET JERONIMO OT Jan 21, 2017 12:06
--- NOTE | 2017-01-21 14:31 | Occupational Ther Daily Note ---
OT Current Status-Daily Note Subjective Pt seen in gym after PT, agreeable to OT. Reported muscle spasm L shoulder and increased pain in hip while walking back to room. Not rated but nursing notified re: pain meds. Appearance Alert, cooperative Mental Status/Objective Functional [place] Measure 0=Not Assessed/NA 4=Minimal Assistance 1=Total Assistance 5=Supervision or Setup 2=Maximal Assistance 6=Modified [place] 3=Moderate Assistance 7=Complete [place] ADL-Treatment Functional [place] Measure 0=Not Assessed/NA 4=Minimal Assistance 1=Total Assistance 5=Supervision or Setup 2=Maximal Assistance 6=Modified [place] 3=Moderate Assistance 7=Complete IndependenceIRFPAI Quality Coding Scale 6 Independent with activity with or without an assistive device 5 Patient requires set up or clean up by helper. Patient completes activity by themselves 4 Supervision or touching assist (CGA). [place] provide cues , steadying assist 3 The helper provides less than half the effort to complete the activity 2 The helper provides more than half the effort to complete the activity 1 Dependent. The helper does all the effort to complete an activity 7 Patient refused to complete or attempt activity 9 The patient did not perform the activity before the current illness or injury 88 Not attempted due to Medical conditions or safety concerns Other Treatment Pt did 10 minutes R UE exercise on arm bike set at 10W resistance (increased 2 minutes), with a couple brief recovery periods. To strengthen arm to help with transfers and ADLs. Pt reported some discomfort in R shoulder from doing activities this morning and thought that resting her arm briefly helped. She also did AROM x 15 reps L forearm and wrist. Pt encouraged to work toward full elbow extension and noted muscle spasm in shoulder. Pt walked part of the way back to room and requested w/c for transportation the rest of the way, due to leg pain (not rated). Pt walked SBA, CHW, to bed,w as able to sit EOB without help but needed a little help to get her L leg into bed. Pt left up in bed, all needs met. Education OT Patient Education: Progress toward Goal/Update tx plan, Purpose of tx/ functional activities Teaching Recipient: Patient Teaching Methods: Discussion Response to Teaching: Verbalize Understanding OT Short Term Goals Short Term Goals Time Frame: Jan 11, 2017 Bathing(FIM): 4 Upper Body Dressing(FIM): 3 Lower Body Dressing(FIM): 3 Toileting(FIM): 3 Toilet/Commode Transfer(FIM): 4 Additional Short Term Goals: 2-Verbalize Understanding, 3-ImproveStrength/Tacho 1=Demonstrate adherence to instructed precautions during ADL tasks. 2=Patient will verbalize/demonstrate understanding of assistive devices/ modifications for ADL. 3=Patient will improve strength/tolerance for activity to enable patient to perform ADL's. OT Longterm Goals Longterm Goals Time Frame: Jan 25, 2017 Eating (FIM): 6 Eating (QC): 6 Groomin Oral Hygiene (QC): 6 Bathing(FIM): 5 Shower/Bathe Self (QC): 5 Upper Body Dressing(FIM): 5 Upper Body Dressing (QC): 5 Lower Body Dressing(FIM): 5 Lower Body Dressing (QC): 5 On/Off Footwear (QC): 5 Toileting(FIM): 6 Toileting Hygiene (QC): 5 Toilet/Commode Transfer(FIM): 5 Toilet/Commode Transfer (QC): 5 Shower Transfer(FIM): 5 Additional Goals: 2-Verbalize Understanding, 3-ImproveStrength/Tacho 1=Demonstrate adherence to instructed precautions during ADL tasks. 2=Patient will verbalize/demonstrate understanding of assistive devices/ modifications for ADL. 3=Patient will improve strength/tolerance for activity to enable patient to perform ADL's. OT Education/Plan Problem List/Assessment Pt would benefit from skilled OT to increase her independence in basic self care to allow her to safely return to her home and to decrease caregiver burden. Discharge Recommendations Plan/Recommendations: Continue POC Treatment Plan/Plan of Care Patient would benefit from OT for education, treatment and training to promote independence in ADL's, mobility, safety and/or upper extremity function for ADL' s. Plan of Care: ADL Retraining, Functional Mobility, Group Exercise/Act as Ind ( education, exercise, funct activity, activ tolerance, ), UE Funct Exercise/Act, UE Neuromus Re-Ed/Coord Treatment Duration: Jan 25, 2017 Frequency: At least 5 of 7 days/Wk (IRF) Estimated Hrs Per Day: 1.5 hours per day Agreement: Yes Rehab Potential: Good Time/GCodes Start Time: 11:15 Stop Time: 11:45 Total Time Billed (hr/min): 30 Billed Treatment Time visit, 30 minutes exercise YAMILET JERONIMO OT Jan 21, 2017 14:31
--- NOTE | 2017-01-21 14:50 | Physical Therapy Daily Note ---
PT Daily Note-Current Subjective Pt. states she feels that she is stable and more indep and could be up ad [place] Pain Numeric Pain Scale: 0-No Pain Mental Status Patient Orientation: Normal For Age Transfers Functional [place] Measure 0=Not Assessed/NA 4=Minimal Assistance 1=Total Assistance 5=Supervision or Setup 2=Maximal Assistance 6=Modified [place] 3=Moderate Assistance 7=Complete IndependenceIRFPAI Quality Coding Scale 6 Independent with activity with or without an assistive device 5 Patient requires set up or clean up by helper. Patient completes activity by themselves 4 Supervision or touching assist (CGA). [place] provide cues , steadying assist 3 The helper provides less than half the effort to complete the activity 2 The helper provides more than half the effort to complete the activity 1 Dependent. The helper does all the effort to complete an activity 7 Patient refused to complete or attempt activity 9 The patient did not perform the activity before the current illness or injury 88 Not attempted due to Medical conditions or safety concerns all TRFs bed and chair and toilet Mod I Weight Bearing Right Lower Extremity: Right Full Weight Bearing Left Lower Extremity: Left Weight Bearing/Tolerated with standby assistance Left UE in a sling Gait Training Gait Assistive Device: FWW gait CHW 150 ft about room and unit no LOB, gait continues slow and careful with step to pattern Exercises Seated Therapy Exercises: Ankle pumps, Sit to stand, Long arc quads Seated Reps: 12 Treatments pt. ambulated in to indep apartment/room of unit to see if she might like to move to this unit. Pt. states she will think this over Assessment Current Status: Good Progress PT Short Term Goals Short Term Goals Time Frame: Jan 11, 2017 Gait (FIM): 2 Distance (FIM): 2=720-24 ft Wheelchair Distance: 100' PT Senior Data Quality Analyst Goals Senior Data Quality Analyst Goals PT Usp Goals Time Frame: Jan 25, 2017 Transfers (B,C,W/C) (FIM): 6 Sit to Lying (QC): 6 Lying-Sitting on Side/Bed(QC): 6 Sit to Stand (QC): 6 Rollin Roll Left to Right (QC): 6 Chair/Yel-iz-Xwzxe Xfer(QC): 6 Car Transfer (QC): 6 Does the Patient Walk: Yes Gait (FIM): 6 Gait distance (FIM): 3=150 ft Walk 10 feet (QC): 6 Walk 10ft-Uneven Surface(QC): 6 Walk 50ft with 2 Turns (QC): 6 Walk 150 ft (QC): 6 Gait Assistive Device: Cane Small Base Quad (or 1 handed walker) Does the Pt use WC or Scooter?: No Stairs (FIM): 2 # of Steps: 4 1 Step (curb) (QC): 5 4 Steps (QC): 5 12 Steps (QC): 0 (dash) Picking up an Object (QC): 5 PT Plan Treatment/Plan Treatment Plan: Continue Plan of Care Treatment Plan: Bed Mobility, Education, Functional Activity Tacho, Functional Strength, Group Therapy, Gait, Safety, Therapeutic Exercise, Transfers Treatment Duration: Jan 25, 2017 Frequency: At least 5 of 7 days/Wk (IRF) Estimated Hrs Per Day: 1.5 hours per day Patient and/or Family Agrees t: Yes Safety Risks/Education Patient Education: Gait Training, Transfer Techniques Teaching Recipient: Health Care Proxy Teaching Methods: Demonstration, Discussion Response to Teaching: Verbalize Understanding, Return Demonstration, Reinforcement Needed Time/GCodes Time In: 1415 Time Out: 1445 Total Billed Treatment Time: 30 Total Billed Treatment 1,GT30m G Codes Necessary: No AYLA MENDEZ BOWLING BALL GRADER Jan 21, 2017 14:50
[2017-01-21 17:07] VITALS: BP 108/66
[2017-01-21 18:00] VITALS: BP 123/70
[2017-01-21] MEDS: lisINopril 20 MG (ZESTRIL) TAB PO SCH (20:47)
[2017-01-21] MEDS: TEMAZEPAM 15 MG (RESTORIL) CAP PO SCH (20:47)
[2017-01-22] MEDS: HYDROcodone/APAP 10 MG/325 MG (LORTAB) TAB PO PRN ×4 (02:53→20:16)
[2017-01-22] MEDS: FERROUS SULF 325 MG (IRON) TAB PO SCH (06:19)
[2017-01-22] MEDS: PANTOPRAZOLE 40 MG (PROTONIX) TAB PO SCH (06:19)
[2017-01-22] MEDS: OMEGA 3 (FISH OIL) 1000 MG CAP PO SCH ×2 (06:19→18:46)
[2017-01-22] MEDS: METOCLOPRAMIDE 10 MG (REGLAN) TAB PO SCH ×3 (06:19→15:05)
[2017-01-22] MEDS: LEVOTHYROXINE 50 MCG (LEVOTHROID) TAB PO SCH (06:19)
[2017-01-22 06:23] VITALS: BP 134/72
[2017-01-22] MEDS: ONDANSETRON 8 MG (ZOFRAN) ORAL DISSOLVE TAB PO PRN (07:44)
--- NOTE | 2017-01-22 09:08 | Physical Therapy Progress Note ---
Therapy Progress Note PT attempted to see pt for tx but pt advised had been vomiting this morning and continued to feel nauseated even after nausea med. PT will check back with pt later for tx. 1, no tx ([id number]) VINNY COSME KEYBOARD OPERATOR Jan 22, 2017 09:08
--- NOTE | 2017-01-22 09:45 | Occ Therapy Progress Note ---
Therapy Progress Note Pt refused OT therapy session. WOODWARD encouraged pt to participate with therapy. Pt stated that she had been nauseous and vomiting this morning and could not do therapy at this time. WOODWARD reported to Certification And Selection Specialist. Will go back to check on pt at a later time this morning. IRMA BLEDSOE Jan 22, 2017 09:45
--- NOTE | 2017-01-22 09:52 | Progress Note-Hospitalist ---
Progress Note Progress Notes/Assess & Plan Date Seen 01/22/17 Time Seen by Provider: 09:30 Diagonsis/Assessment & Plan Pt has UTI and treatment is tolerated Vertigo with nausea today and agrees to Scop patch AFVSS, pleasant, improved, chronically ill RRR, CTAB no rales noted No edema Assessment: Hip fracture Left humerus fracture h/o lung cancer right s/p resection Urinary tract infection catheter associated Constipation Vertigo with nausea Plan: IS Monitor pt Abx Scop patch GERDA ESPINO DO Jan 22, 2017 09:52
[2017-01-22] MEDS: NITROFURANTOIN 100 MG (MACROBID) CAPSULE PO SCH ×2 (10:00→20:14)
[2017-01-22] MEDS ORDERED: SCOPOLAMINE 1.5 MG (TRANSDERM-SCOP) PATCH TOP SCH (10:00)
[2017-01-22] MEDS: amLODIPine 10 MG (NORVASC) TAB PO SCH (10:00)
[2017-01-22] MEDS: PYRIDOXINE (VITAMIN B-6) 50 MG TABLET PO SCH (10:00)
[2017-01-22] MEDS: HYDROCHLOROTHIAZIDE 25 MG (HCTZ) TAB PO SCH (10:00)
[2017-01-22] MEDS: DOCUSATE SODIUM 100 MG (COLACE) CAP PO SCH ×2 (10:29→20:14)
[2017-01-22] MEDS: LACTULOSE SYRUP 10GM/15ML (ENULOSE) 30ML UDC PO SCH ×2 (10:30→20:09)
[2017-01-22] MEDS: PHENAZOPYRIDINE 100 MG (PYRIDIUM) TABLET PO SCH ×3 (10:30→18:40)
[2017-01-22] MEDS: hydrOXYzine (VISTARIL) 25 MG CAP PO SCH ×4 (10:31→20:09)
[2017-01-22 11:21] VITALS: BP 131/74
--- NOTE | 2017-01-22 11:34 | Physical Therapy Progress Note ---
Therapy Progress Note PT attempts to see pt again for tx, pt is restroom with Nurse upon arrival. Pt reports still feeling nauseated as well as has a headache and the chills. Pt declines PT at this time. PT will check on pt this afternoon. VINNY COSME DIRECTOR VIDEO Jan 22, 2017 11:34
--- NOTE | 2017-01-22 11:47 | Occ Therapy Progress Note ---
Therapy Progress Note WOODWARD checked on pt, pt refused. Pt stated that she was still nauseous but had not vomited since earlier this am. WOODWARD asked if there was anything pt needed and pt declined. IRMA BLEDSOE Jan 22, 2017 11:47
--- NOTE | 2017-01-22 11:49 | Progress Note-Urology ---
Progress Note-Urology Progress Notes/Assess & Plan Progress/Assessment & Plan VOIDING WELL. LESS DYSURIA. VOMITED THIS AM. Final Diagnosis RETENTION AND UTI ZAHRA JEFF MD Jan 22, 2017 11:49 am
--- NOTE | 2017-01-22 13:25 | Occ Therapy Progress Note ---
Therapy Progress Note WOODWARD checked on pt and encourage to participate in therapy. Pt stated that she still felt nauseous and had been cold and sweating then finally got warm. Pt refused to complete therapy. IRMA BLEDSOE Jan 22, 2017 13:24
[2017-01-22 13:30] VITALS: BP 126/71
--- NOTE | 2017-01-22 14:00 | Physical Therapy Progress Note ---
Therapy Progress Note PT checked on pt this afternoon and pt declined tx due to feeling nauseated, having chills and headache. Lack of tx today voiced to both Shellfish Bed Worker and Nurse. 1, no tx VINNY COSME OSTEOLOGY TEACHER Jan 22, 2017 14:00
--- NOTE | 2017-01-22 16:49 | PM & R (SOAP) Progress Note ---
Subjective Time Seen by Provider: 16:30 Subjective/Events-last exam Patient was seen in her room this afternoon Discussed case with RN Appreciate DR arita note and orders Patient missed therapies today due to nausea DR mtz has ordered SCOP patch and patient feeling a bit better,Patient has been decling Macrobid and Pyridium.Patient doesnt want Iron replaaaaaaaaacement pill as she carries a DX of Thalassemia and indicates oral iron wont help -will d/c Review of Systems Gastrointestinal: Nausea Objective Exam Last Set of Vital Signs Vital Signs Date Time Temp Pulse Resp B/P (MAP) Pulse Ox O2 Delivery O2 Flow Rate FiO2 01/22/17 13:30 98.5 76 20 126/71 (89) 95 Room Air Capillary Refill : Less Than 3 Seconds I&O Intake and Output 01/22/17 00:00 Intake Total 1122 ml Balance 1122 ml Intake Oral 1122 ml # Voids 10 General: Alert, Oriented X3, Cooperative, No Acute Distress HEENT: Atraumatic, PERRLA, EOMI, Mucous Memb Moist/[place] Neck: Supple, No JVD Lungs: Clear to Auscultation Heart: Regular Rate Abdomen: Normal Bowel Sounds, Soft, No Tenderness Extremities: No Edema, Other (left arm in sling) Neuro: Other (left HP) Results Lab Microbiology 01/19/17 Urine Culture - Final, Complete Enterococcus Faecalis Streptococcus Viridans Assessment/Plan Assessment fall with resulting left humerus frx and left periprosthetic hip frx managed with sling for LUE and WBAT for 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 GERD on meds Constipation associated with vasovagal reaction s/p BM earlier this week Chronic Back pain with hx of Spinal surgery times 4 Hx of lung ca with lobectomy HTN controlled Low grade fever resolved with no growth on Urine culture-resolved Urinary retention currently being managed with meds and TOV-Silva out and patient voiding Nausea multifactral-Patient declining Pyridium and Macrobid Thalassemia-DC iron replacement as per patients request-iron could be contributing to nausea Plan Continue PT/OT Dr Najera has requested a formal Ortho consult-DR Jarvis therapy administrative assistant has seen Monitor for any urinary retention with f/u with DT Don prn Appreciate Dr Arita note and orders Next Team Conference tomorrow 01-23-17 D/C Iron-See orders Continue scopolamine patch Treat nausea symtomatically Discharge set tentatively for home on 01/24/17 Will confirm with SW tomorrow REBEKAH GRECO MD Jan 22, 2017 16:49
[2017-01-22 18:41] VITALS: BP 115/67
[2017-01-22] MEDS: lisINopril 20 MG (ZESTRIL) TAB PO SCH (20:09)
[2017-01-22] MEDS: TEMAZEPAM 15 MG (RESTORIL) CAP PO SCH (20:09)
[2017-01-23] MEDS: HYDROcodone/APAP 10 MG/325 MG (LORTAB) TAB PO PRN ×4 (03:57→19:31)
[2017-01-23 05:25] VITALS: BP 110/68
[2017-01-23] MEDS: PANTOPRAZOLE 40 MG (PROTONIX) TAB PO SCH (06:22)
[2017-01-23] MEDS: LEVOTHYROXINE 50 MCG (LEVOTHROID) TAB PO SCH (06:22)
[2017-01-23] MEDS: OMEGA 3 (FISH OIL) 1000 MG CAP PO SCH ×2 (06:22→17:12)
[2017-01-23] MEDS: METOCLOPRAMIDE 10 MG (REGLAN) TAB PO SCH ×3 (06:22→17:12)
[2017-01-23] MEDS: DOCUSATE SODIUM 100 MG (COLACE) CAP PO SCH ×2 (07:54→20:25)
[2017-01-23] MEDS: LACTULOSE SYRUP 10GM/15ML (ENULOSE) 30ML UDC PO SCH ×2 (07:54→20:26)
[2017-01-23] MEDS: PYRIDOXINE (VITAMIN B-6) 50 MG TABLET PO SCH (07:55)
[2017-01-23] MEDS: HYDROCHLOROTHIAZIDE 25 MG (HCTZ) TAB PO SCH (07:55)
[2017-01-23] MEDS: NITROFURANTOIN 100 MG (MACROBID) CAPSULE PO SCH ×2 (07:55→20:25)
[2017-01-23] MEDS: PHENAZOPYRIDINE 100 MG (PYRIDIUM) TABLET PO SCH ×3 (07:55→17:12)
[2017-01-23] MEDS: hydrOXYzine (VISTARIL) 25 MG CAP PO SCH ×4 (07:55→20:25)
[2017-01-23] MEDS: amLODIPine 10 MG (NORVASC) TAB PO SCH (07:55)
[2017-01-23] MEDS: CLOPIDOGREL 75 MG (PLAVIX) TABLET PO SCH (07:55)
--- NOTE | 2017-01-23 09:48 | Occupational Ther Daily Note ---
OT Current Status-Daily Note Subjective Pt seen in room, up in bed, agreeable to OT. She said nausea was not a problem today and she had been up several times to toilet. No pain mentioned. Appearance Alert, cooperative Mental Status/Objective Patient Orientation: Person, Place, Time, Situation Functional [place] Measure 0=Not Assessed/NA 4=Minimal Assistance 1=Total Assistance 5=Supervision or Setup 2=Maximal Assistance 6=Modified [place] 3=Moderate Assistance 7=Complete [place] ADL-Treatment Pt anticipating discharge to her home tomorrow. She was able to lower the side rail on her bed, move from supine to sit EOB without assistance and sit to stand without help. She walked in her room during ADLs without help with CHW ( center hold walker) and had no LOB. Functional [place] Measure 0=Not Assessed/NA 4=Minimal Assistance 1=Total Assistance 5=Supervision or Setup 2=Maximal Assistance 6=Modified [place] 3=Moderate Assistance 7=Complete IndependenceIRFPAI Quality Coding Scale 6 Independent with activity with or without an assistive device 5 Patient requires set up or clean up by helper. Patient completes activity by themselves 4 Supervision or touching assist (CGA). [place] provide cues , steadying assist 3 The helper provides less than half the effort to complete the activity 2 The helper provides more than half the effort to complete the activity 1 Dependent. The helper does all the effort to complete an activity 7 Patient refused to complete or attempt activity 9 The patient did not perform the activity before the current illness or injury 88 Not attempted due to Medical conditions or safety concerns Eating (FIM): 7 (No dentures. pt is able to open packages, cut food,feed herself without setup or help. She can use her L hand as an assist.) Eating (QC): 6 Grooming (FIM): 6 (Pt stood at sink with CHW for balance, and brushed her teeth , combed her hair. Washed face and hands in shower. No makeup.) Oral Hygiene (QC): 6 Bathing (FIM): 6 (Pt washed and dried all parts, including back, using long handled sponge, shower bench, grab bar, hand held shower. Turned water on and off and retrieved towel from bar) Shower/Bathe Self (QC): 6 Upper Body (FIM): 6 (Pt doffed and donned t shirt. Also able to doff and don sling L arm. pt retrieved clean clothes from closet and put dirty ones away, using CHW for balance. Pt educ walker safety at closet and for reaching/ placement of objects) Upper Body Dressing (QC): 6 Lower Body Dressing (FIM): 6 (Pt doffed and donned slipper socks, Depends and pants, using dressing stick, sock aid. pt retrieved clean clothes from closet and put dirty ones away, using CHW for balance. Pt educ walker safety at closet and for reaching/placement of objects) Lower Body Dressing (QC): 6 On/Off Footwear (QC): 6 Toileting (FIM): 6 (Able to manage clothing and hygiene without help or LOB. BSC over toilet, grab bar, CHW) Toileting Hygiene (QC): 6 Toilet/Commode Transfer (FIM): 6 (On/off BSC over toilet, grab bar, CHW. No LOB observed) Toilet Transfer (QC): 6 Shower Transfer(FIM): 6 (On/off shower bench with grab bar, CHW. No LOB) Pt indicated that she will have someone purchase a hip kit with dressing stick and also a soft sock aid. She has a toilet riser at home that she will use. Pt left up in recliner, all needs met. Education OT Patient Education: Modified ADL techniques, Progress toward Goal/Update tx plan, Purpose of tx/functional activities Teaching Recipient: Patient Teaching Methods: Demonstration, Discussion Response to Teaching: Verbalize Understanding, Return Demonstration OT Short Term Goals Short Term Goals Time Frame: Jan 11, 2017 Bathing(FIM): 4 Upper Body Dressing(FIM): 3 Lower Body Dressing(FIM): 3 Toileting(FIM): 3 Toilet/Commode Transfer(FIM): 4 Additional Short Term Goals: 2-Verbalize Understanding, 3-ImproveStrength/Tacho 1=Demonstrate adherence to instructed precautions during ADL tasks. 2=Patient will verbalize/demonstrate understanding of assistive devices/ modifications for ADL. 3=Patient will improve strength/tolerance for activity to enable patient to perform ADL's. OT Senior Living Goals Senior Living Goals Time Frame: Jan 25, 2017 Eating (FIM): 6 Eating (QC): 6 Groomin Oral Hygiene (QC): 6 Bathing(FIM): 5 Shower/Bathe Self (QC): 5 Upper Body Dressing(FIM): 5 Upper Body Dressing (QC): 5 Lower Body Dressing(FIM): 5 Lower Body Dressing (QC): 5 On/Off Footwear (QC): 5 Toileting(FIM): 6 Toileting Hygiene (QC): 5 Toilet/Commode Transfer(FIM): 5 Toilet/Commode Transfer (QC): 5 Shower Transfer(FIM): 5 Additional Goals: 2-Verbalize Understanding, 3-ImproveStrength/Tacho 1=Demonstrate adherence to instructed precautions during ADL tasks. 2=Patient will verbalize/demonstrate understanding of assistive devices/ modifications for ADL. 3=Patient will improve strength/tolerance for activity to enable patient to perform ADL's. OT Education/Plan Problem List/Assessment Pt would benefit from skilled OT to increase her independence in basic self care to allow her to safely return to her home and to decrease caregiver burden. Discharge Recommendations Plan/Recommendations: Continue POC Treatment Plan/Plan of Care Patient would benefit from OT for education, treatment and training to promote independence in ADL's, mobility, safety and/or upper extremity function for ADL' s. Plan of Care: ADL Retraining, Functional Mobility, Group Exercise/Act as Ind ( education, exercise, funct activity, activ tolerance, ), UE Funct Exercise/Act, UE Neuromus Re-Ed/Coord Treatment Duration: Jan 25, 2017 Frequency: At least 5 of 7 days/Wk (IRF) Estimated Hrs Per Day: 1.5 hours per day Agreement: Yes Rehab Potential: Good Time/GCodes Start Time: 08:30 Stop Time: 09:25 Total Time Billed (hr/min): 55 Billed Treatment Time visit, 55 minutes ADL YAMILET JERONIMO OT Jan 23, 2017 09:48
--- NOTE | 2017-01-23 09:57 | PM & R (SOAP) Progress Note ---
Subjective Time Seen by Provider: 09:30 Subjective/Events-last exam Patient was seen in her room this AM Nausea resolved Patient feeling much better today and looking forward to discharge to home tomorrow.Iron d/cd.Scop patch helping. Objective Exam Last Set of Vital Signs Vital Signs Date Time Temp Pulse Resp B/P (MAP) Pulse Ox O2 Delivery O2 Flow Rate FiO2 01/23/17 08:25 Room Air 01/23/17 05:25 96.9 57 18 110/68 (82) 92 Capillary Refill : Less Than 3 Seconds I&O Intake and Output 01/23/17 00:00 Intake Total 1215 ml Output Total 50 ml Balance 1165 ml Intake Oral 1215 ml Emesis 50 ml # Voids 10 # Bowel Movements 1 General: Alert, Oriented X3, Cooperative, No Acute Distress HEENT: Atraumatic, PERRLA, EOMI, Mucous Memb Moist/[place] Neck: Supple, No JVD Lungs: Clear to Auscultation Heart: Regular Rate Abdomen: Normal Bowel Sounds, Soft, No Tenderness Extremities: No Edema, Other (left arm in sling) Neuro: Other (left HP) Results Lab Microbiology 01/19/17 Urine Culture - Final, Complete Enterococcus Faecalis Streptococcus Viridans Assessment/Plan Assessment fall with resulting left humerus frx and left periprosthetic hip frx managed with sling for LUE and WBAT for 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 GERD on meds Constipation associated with vasovagal reaction s/p BM earlier this week Chronic Back pain with hx of Spinal surgery times 4 Hx of lung ca with lobectomy HTN controlled Low grade fever resolved with no growth on Urine culture-resolved Urinary retention currently being managed with meds and TOV-Silva out and patient voiding Nausea multifactral-Patient declining Pyridium and Macrobid-now resolved Thalassemia-DC iron replacement as per patients request-iron could be contributing to nausea Plan Continue PT/OT Dr Najera has requested a formal Ortho consult-DR Jarvis laundry assistant has seen Monitor for any urinary retention with f/u with [facility] Ochoa prn Appreciate Dr Arita note and orders Next Team Conference tomorrow 01-23-17 D/C Iron-See orders Continue scopolamine patch Discharge set tentatively for tomorrow 01/24/17 to home with [facility] Team Conference to be held later today-See report for full functional update and POC Confirm with SW that discharge remains set for tomorrow REBEKAH GRECO MD Jan 23, 2017 09:57
--- NOTE | 2017-01-23 11:54 | Physical Therapy Daily Note ---
PT Daily Note-Current Subjective Pt sitting at EOB just finishing with OT upon arrival. Pt agrees to PT to prepare for discharge tomorrow. Pain Numeric Pain Scale: 5-Moderate Pain Location: Left Location Body Site: Abdomen Pain Description: Ache, Tightness Mental Status Patient Orientation: Person, Place, Time, Situation Attachments: Other-See Comments (UE sling) Transfers Functional [place] Measure 0=Not Assessed/NA 4=Minimal Assistance 1=Total Assistance 5=Supervision or Setup 2=Maximal Assistance 6=Modified [place] 3=Moderate Assistance 7=Complete IndependenceIRFPAI Quality Coding Scale 6 Independent with activity with or without an assistive device 5 Patient requires set up or clean up by helper. Patient completes activity by themselves 4 Supervision or touching assist (CGA). [place] provide cues , steadying assist 3 The helper provides less than half the effort to complete the activity 2 The helper provides more than half the effort to complete the activity 1 Dependent. The helper does all the effort to complete an activity 7 Patient refused to complete or attempt activity 9 The patient did not perform the activity before the current illness or injury 88 Not attempted due to Medical conditions or safety concerns Transfers (B, C, W/C) (FIM): 4 Scootin Rollin Roll Left to Right (QC): 5 Supine to/from Sit: 4 Sit to/from Stand: 6 Sit to Lying (QC): 4 Sit to Stand (QC): 6 Chair/Wbv-px-Lddlk Xfer(QC): 6 Bed to/from Chair: 6 Car Transfer (QC): 6 Weight Bearing Right Lower Extremity: Right Full Weight Bearing Left Lower Extremity: Left Weight Bearing/Tolerated with standby assistance Left UE in a sling Gait Training Does the Patient Walk?: Yes Distance (FIM): 3=150 ft Distance: 250' Walk 10 feet (QC): 6 Walk 50 ft with 2 Turns(QC): 6 Walk 150 ft (QC): 6 Gait Level of Assist: 6 Gait Persons Needed: 1 Gait Assistive Device: Walker Center-Hold Pt walks with slow cady but is steady, no LOB. Pt fatigues but is walking farther distance before needing rest. Wheelchair Training Does the Pt Use a Wheelchair?: No Stair Training Stairs (FIM): 88 Pt is unable to lift LE high enough to ambulate stairs safely. Balance Picking up an Object (QC): 88 Special Test Comments Pt's is dizzy when bending over so wasn't attempted due to safety. Treatments Pt transfers to standing from EOB using FWW at Mod I. Pt ambulates in hallway using FWW at Mod I before needing a short rest, then continuing walk to Therapy Gym. Pt completes ambulation over varying surface of at least 10', car transfer and bed mobility on mat. Pt completes transfers and walks back to room to rest Supine in bed at end of tx with all needs met. Assessment Current Status: Good Progress Pt is getting stronger and has continued to make improvements with sit to stand transfers and ambulation both with independence and safety. Pt still struggles with Supine to sit and sit to Supine transfers due to lack of assistance with L side. Pt is Min A with both transfers. PT Short Term Goals Short Term Goals Time Frame: Jan 11, 2017 Gait (FIM): 2 Distance (FIM): 3=386-68 ft Wheelchair Distance: 100' PT Product Steward Goals Product Steward Goals PT Product Steward Goals Time Frame: Jan 25, 2017 Transfers (B,C,W/C) (FIM): 6 Sit to Lying (QC): 6 Lying-Sitting on Side/Bed(QC): 6 Sit to Stand (QC): 6 Rollin Roll Left to Right (QC): 6 Chair/Din-mm-Wjmro Xfer(QC): 6 Car Transfer (QC): 6 Does the Patient Walk: Yes Gait (FIM): 6 Gait distance (FIM): 3=150 ft Walk 10 feet (QC): 6 Walk 10ft-Uneven Surface(QC): 6 Walk 50ft with 2 Turns (QC): 6 Walk 150 ft (QC): 6 Gait Assistive Device: Cane Small Base Quad (or 1 handed walker) Does the Pt use WC or Scooter?: No Stairs (FIM): 2 # of Steps: 4 1 Step (curb) (QC): 5 4 Steps (QC): 5 12 Steps (QC): 0 (dash) Picking up an Object (QC): 5 PT Plan Problem List Problem List: Activity Tolerance, Functional Strength Treatment/Plan Treatment Plan: Continue Plan of Care Treatment Plan: Bed Mobility, Education, Functional Activity Tacho, Functional Strength, Group Therapy, Gait, Safety, Therapeutic Exercise, Transfers Treatment Duration: Jan 25, 2017 Frequency: At least 5 of 7 days/Wk (IRF) Estimated Hrs Per Day: 1.5 hours per day Patient and/or Family Agrees t: Yes Safety Risks/Education Patient Education: Gait Training, Correct Positioning, Safety Issues Teaching Recipient: Patient Teaching Methods: Discussion Response to Teaching: Verbalize Understanding Time/GCodes Time In: 925 Time Out: 1025 Total Billed Treatment Time: 60 Total Billed Treatment 1,GT x2 (30m) & FA x2 (30m) VINNY COSME BARTENDER SERVER Jan 23, 2017 11:54
--- NOTE | 2017-01-23 14:36 | Physical Therapy Daily Note ---
PT Daily Note-Current Subjective Pt sitting in recliner upon arrival. Pt agrees to PT. Mental Status Patient Orientation: Person, Place, Time, Situation Attachments: Other-See Comments (MAXI telles) Transfers Functional [place] Measure 0=Not Assessed/NA 4=Minimal Assistance 1=Total Assistance 5=Supervision or Setup 2=Maximal Assistance 6=Modified [place] 3=Moderate Assistance 7=Complete IndependenceIRFPAI Quality Coding Scale 6 Independent with activity with or without an assistive device 5 Patient requires set up or clean up by helper. Patient completes activity by themselves 4 Supervision or touching assist (CGA). [place] provide cues , steadying assist 3 The helper provides less than half the effort to complete the activity 2 The helper provides more than half the effort to complete the activity 1 Dependent. The helper does all the effort to complete an activity 7 Patient refused to complete or attempt activity 9 The patient did not perform the activity before the current illness or injury 88 Not attempted due to Medical conditions or safety concerns Scootin Sit to/from Stand: 6 Sit to Stand (QC): 6 Weight Bearing Right Lower Extremity: Right Full Weight Bearing Left Lower Extremity: Left Weight Bearing/Tolerated with standby assistance Left UE in a sling Gait Training Does the Patient Walk?: Yes Distance (FIM): 7=418-61 ft Distance: 50' Walk 10 feet (QC): 6 Walk 50 ft with 2 Turns(QC): 6 Gait Level of Assist: 6 Gait Persons Needed: 1 Gait Assistive Device: Walker Center-Hold Wheelchair Training Does the Pt Use a Wheelchair?: No Treatments Pt transfers from sitting in recliner to standing using FWW and ambulates to restroom at Mod I. After finishing, pt returns to recliner for a few topics pt wanted to discuss regarding discharge tomorrow. HIP HOP PERFORMERS & pt discuss Home Health and PT will see pt at home, pt is getting hip kit for OT supplies needed as well as getting proper skiis/footing, etc for FWW. Pt reports feeling better about discharge and will have family pick pt up [facility]. Pt resting in recliner at end of tx with all needs met. Assessment Current Status: Good Progress Pt has gotten stronger and more independent with transfers and mobility during PT tx. PT Short Term Goals Short Term Goals Time Frame: Jan 11, 2017 Gait (FIM): 2 Distance (FIM): 3=876-11 ft Wheelchair Distance: 100' PT Plate Drying Machine Tender Goals Senior Care Goals PT Senior Care Goals Time Frame: Jan 25, 2017 Transfers (B,C,W/C) (FIM): 6 Sit to Lying (QC): 6 Lying-Sitting on Side/Bed(QC): 6 Sit to Stand (QC): 6 Rollin Roll Left to Right (QC): 6 Chair/Nuw-lk-Vhght Xfer(QC): 6 Car Transfer (QC): 6 Does the Patient Walk: Yes Gait (FIM): 6 Gait distance (FIM): 3=150 ft Walk 10 feet (QC): 6 Walk 10ft-Uneven Surface(QC): 6 Walk 50ft with 2 Turns (QC): 6 Walk 150 ft (QC): 6 Gait Assistive Device: Cane Small Base Quad (or 1 handed walker) Does the Pt use WC or Scooter?: No Stairs (FIM): 2 # of Steps: 4 1 Step (curb) (QC): 5 4 Steps (QC): 5 12 Steps (QC): 0 (dash) Picking up an Object (QC): 5 PT Plan Problem List Problem List: Activity Tolerance, Gait Treatment/Plan Treatment Plan: Continue Plan of Care Treatment Plan: Bed Mobility, Education, Functional Activity Tacho, Functional Strength, Group Therapy, Gait, Safety, Therapeutic Exercise, Transfers Treatment Duration: Jan 25, 2017 Frequency: At least 5 of 7 days/Wk (IRF) Estimated Hrs Per Day: 1.5 hours per day Patient and/or Family Agrees t: Yes Safety Risks/Education Patient Education: Correct Positioning, Safety Issues Teaching Recipient: Patient Teaching Methods: Discussion Response to Teaching: Verbalize Understanding Time/GCodes Time In: 1330 Time Out: 1400 Total Billed Treatment Time: 30 Total Billed Treatment 1, FA x2 (30m) VINNY COSME PTA Jan 23, 2017 14:36
--- NOTE | 2017-01-23 15:29 | Occupational Ther Daily Note ---
OT Current Status-Daily Note Subjective Pt seen in room, up in bed, all needs met. No pain mentioned. Mental Status/Objective Functional [place] Measure 0=Not Assessed/NA 4=Minimal Assistance 1=Total Assistance 5=Supervision or Setup 2=Maximal Assistance 6=Modified [place] 3=Moderate Assistance 7=Complete [place] ADL-Treatment Supine to sit EOB without assistance. Sit to stand without help, CHW. Pt walked to bathroom with no LOB and toileted with mod I. Functional [place] Measure 0=Not Assessed/NA 4=Minimal Assistance 1=Total Assistance 5=Supervision or Setup 2=Maximal Assistance 6=Modified [place] 3=Moderate Assistance 7=Complete IndependenceIRFPAI Quality Coding Scale 6 Independent with activity with or without an assistive device 5 Patient requires set up or clean up by helper. Patient completes activity by themselves 4 Supervision or touching assist (CGA). [place] provide cues , steadying assist 3 The helper provides less than half the effort to complete the activity 2 The helper provides more than half the effort to complete the activity 1 Dependent. The helper does all the effort to complete an activity 7 Patient refused to complete or attempt activity 9 The patient did not perform the activity before the current illness or injury 88 Not attempted due to Medical conditions or safety concerns Toileting (FIM): 6 Toileting Hygiene (QC): 6 Toilet/Commode Transfer (FIM): 6 Toilet Transfer (QC): 6 Other Treatment Pt walked to commons area with CHW, no assistance and no LOB. Able to get on/ off chair with arms, sometimes taking two attempts, made more difficult by being unable to push up with L arm. Pt did UE strengthening activities with 1# weight on R UE, including graded clothespins and pegs. To strengthen arms to help with transfers, including getting in and out of chairs. Pt walked back to her room and was left up in recliner for lunch, all needs met. Education OT Patient Education: Progress toward Goal/Update tx plan, Purpose of tx/ functional activities Teaching Recipient: Patient Teaching Methods: Demonstration Response to Teaching: Return Demonstration OT Short Term Goals Short Term Goals Time Frame: Jan 11, 2017 Bathing(FIM): 4 Upper Body Dressing(FIM): 3 Lower Body Dressing(FIM): 3 Toileting(FIM): 3 Toilet/Commode Transfer(FIM): 4 Additional Short Term Goals: 2-Verbalize Understanding, 3-ImproveStrength/Tacho 1=Demonstrate adherence to instructed precautions during ADL tasks. 2=Patient will verbalize/demonstrate understanding of assistive devices/ modifications for ADL. 3=Patient will improve strength/tolerance for activity to enable patient to perform ADL's. OT Senior Care Goals Community Music Therapist Goals Time Frame: Jan 25, 2017 Eating (FIM): 6 Eating (QC): 6 Groomin Oral Hygiene (QC): 6 Bathing(FIM): 5 Shower/Bathe Self (QC): 5 Upper Body Dressing(FIM): 5 Upper Body Dressing (QC): 5 Lower Body Dressing(FIM): 5 Lower Body Dressing (QC): 5 On/Off Footwear (QC): 5 Toileting(FIM): 6 Toileting Hygiene (QC): 5 Toilet/Commode Transfer(FIM): 5 Toilet/Commode Transfer (QC): 5 Shower Transfer(FIM): 5 Additional Goals: 2-Verbalize Understanding, 3-ImproveStrength/Tacho 1=Demonstrate adherence to instructed precautions during ADL tasks. 2=Patient will verbalize/demonstrate understanding of assistive devices/ modifications for ADL. 3=Patient will improve strength/tolerance for activity to enable patient to perform ADL's. OT Education/Plan Problem List/Assessment Pt would benefit from skilled OT to increase her independence in basic self care to allow her to safely return to her home and to decrease caregiver burden. Discharge Recommendations Plan/Recommendations: Continue POC Treatment Plan/Plan of Care Patient would benefit from OT for education, treatment and training to promote independence in ADL's, mobility, safety and/or upper extremity function for ADL' s. Plan of Care: ADL Retraining, Functional Mobility, Group Exercise/Act as Ind ( education, exercise, funct activity, activ tolerance, ), UE Funct Exercise/Act, UE Neuromus Re-Ed/Coord Treatment Duration: Jan 25, 2017 Frequency: At least 5 of 7 days/Wk (IRF) Estimated Hrs Per Day: 1.5 hours per day Agreement: Yes Rehab Potential: Good Time/GCodes Start Time: 11:30 Stop Time: 12:05 Total Time Billed (hr/min): 35 Billed Treatment Time visit, 30 minutes exercise, 5 minutes ADL YAMILET JERONIMO OT Jan 23, 2017 15:29
[2017-01-23] MEDS ORDERED: DOCU100C37 PO (16:12)
[2017-01-23] MEDS ORDERED: PHEN-826 PO (16:12)
[2017-01-23] MEDS ORDERED: SCOP1PAT TOP (16:12)
[2017-01-23] MEDS ORDERED: HYDR-3820 PO (16:12)
[2017-01-23] MEDS ORDERED: NITR100C10 PO (16:12)
[2017-01-23] MEDS ORDERED: MECL-106 PO (16:12)
[2017-01-23 17:19] VITALS: BP 122/54
[2017-01-23] MEDS: TEMAZEPAM 15 MG (RESTORIL) CAP PO SCH (20:25)
[2017-01-23] MEDS: lisINopril 20 MG (ZESTRIL) TAB PO SCH (20:25)
[2017-01-24] MEDS: HYDROcodone/APAP 10 MG/325 MG (LORTAB) TAB PO PRN ×2 (02:50→09:16)
[2017-01-24 05:13] VITALS: BP 125/74
[2017-01-24] MEDS: PANTOPRAZOLE 40 MG (PROTONIX) TAB PO SCH (06:06)
[2017-01-24] MEDS: METOCLOPRAMIDE 10 MG (REGLAN) TAB PO SCH ×2 (06:06→13:07)
[2017-01-24] MEDS: OMEGA 3 (FISH OIL) 1000 MG CAP PO SCH (06:06)
[2017-01-24] MEDS: LEVOTHYROXINE 50 MCG (LEVOTHROID) TAB PO SCH (06:06)
[2017-01-24] MEDS: DOCUSATE SODIUM 100 MG (COLACE) CAP PO SCH (09:13)
[2017-01-24] MEDS: LACTULOSE SYRUP 10GM/15ML (ENULOSE) 30ML UDC PO SCH (09:13)
[2017-01-24] MEDS: NITROFURANTOIN 100 MG (MACROBID) CAPSULE PO SCH (09:14)
[2017-01-24] MEDS: hydrOXYzine (VISTARIL) 25 MG CAP PO SCH ×2 (09:14→13:07)
[2017-01-24] MEDS: HYDROCHLOROTHIAZIDE 25 MG (HCTZ) TAB PO SCH (09:14)
[2017-01-24] MEDS: amLODIPine 10 MG (NORVASC) TAB PO SCH (09:14)
[2017-01-24] MEDS: PYRIDOXINE (VITAMIN B-6) 50 MG TABLET PO SCH (09:14)
--- NOTE | 2017-01-24 09:21 | PM & R (SOAP) Progress Note ---
Subjective Time Seen by Provider: 08:45 Subjective/Events-last exam Patient was seen in her room this AM All set for discharge today.Has progressed well Patient modified Independent for transfers with left arm in sling. Objective Exam Last Set of Vital Signs Vital Signs Date Time Temp Pulse Resp B/P (MAP) Pulse Ox O2 Delivery O2 Flow Rate FiO2 01/24/17 05:13 98.2 64 18 125/74 (91) 95 Room Air Capillary Refill : Less Than 3 Seconds I&O Intake and Output 01/24/17 00:00 Intake Total 1175 ml Balance 1175 ml Intake Oral 1175 ml # Voids 7 # Bowel Movements 1 General: Alert, Oriented X3, Cooperative, No Acute Distress HEENT: Atraumatic, PERRLA, EOMI, Mucous Memb Moist/[place]: Supple, No JVD Lungs: Clear to Auscultation Heart: Regular Rate Abdomen: Normal Bowel Sounds, Soft, No Tenderness Extremities: No Edema, Other (left arm in sling) Neuro: Other (left HP) Results Lab Microbiology 01/19/17 Urine Culture - Final, Complete Enterococcus Faecalis Streptococcus Viridans Assessment/Plan Assessment fall with resulting left humerus frx and left periprosthetic hip frx managed with sling for LUE and WBAT for 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 GERD on meds Constipation associated with vasovagal reaction s/p BM earlier this week Chronic Back pain with hx of Spinal surgery times 4 Hx of lung ca with lobectomy HTN controlled Low grade fever resolved with no growth on Urine culture-resolved Urinary retention currently being managed with meds and TOV-Silva out and patient voiding Nausea multifactral-Patient declining Pyridium and Macrobid-now resolved Thalassemia-DC iron replacement as per patients request-iron could be contributing to nausea Plan Discharge today to home with HHC and family F/U with PCP and DR Kathia james see orders REBEKAH GRECO MD Jan 24, 2017 09:21
--- NOTE | 2017-01-24 11:27 | Therapy Team Discharge Summary ---
Therapy Discharge Summary Discharge Recommendations Date of Discharge Therapy D/C Recommendations: Physical Therapy Home Care Physical Therapy Patient came to rehab with a left femur and humerus fractures. Upon evaluation patient performed bed mobility and transfers with max assist, did not ambulate or perform stairs or propel a wheelchair. Patient has been performing bed mobility and transfer training, balance and endurance training, functional strengthening, stair training, gait training, and education. Patient has made fair progress and has met her gait, scooting, sit to stand, and transfer intermediate teacher goals. Now, patient performs bed mobility with SBA to mod I, transfers with mod I (including car transfer), ambulates 250' with a center hold walker with mod I, but cannot perform stairs. Patient is being discharged from this facility today and will be discharged from PT at this time. Occupational Therapy Decreased Activ Tolerance, Decreased UE Strength, Dependent Transfers, Impaired Self-Care Skills, Restricted Funct UE ROM PT Application Operations Engineer Goals Application Operations Engineer Goals PT [facility] Goals Time Frame: Jan 25, 2017 Transfers (B,C,W/C) (FIM): 6 Roll Left to Right (QC): 6 Sit to Lying (QC): 6 Lying-Sitting on Side/Bed(QC): 6 Sit to Stand (QC): 6 Chair/Hvg-yf-Iaphu Xfer(QC): 6 Car Transfer (QC): 6 Does the Patient Walk: Yes Gait (FIM): 6 Gait distance (FIM): 3=150 ft Walk 10 feet (QC): 6 Walk 10ft-Uneven Surface(QC): 6 Walk 50ft with 2 Turns (QC): 6 Walk 150 ft (QC): 6 Gait Assistive Device: Cane Small Base Quad (or 1 handed walker) Does the Pt use WC or Scooter?: No Stairs (FIM): 2 # of Steps: 4 1 Step (curb) (QC): 5 4 Steps (QC): 5 12 Steps (QC): 0 (dash) Picking up an Object (QC): 5 OT Application Operations Engineer Goals [facility] Goals Time Frame: Jan 25, 2017 Eating (FIM): 6 Eating (QC): 6 Oral Hygiene (QC): 6 Grooming(FIM): 6 Bathing(FIM): 5 Shower/Bathe Self (QC): 5 Upper Body Dressing(FIM): 5 Upper Body Dressing (QC): 5 Lower Body Dressing(FIM): 5 Lower Body Dressing (QC): 5 On/Off Footwear (QC): 5 Toileting(FIM): 6 Toileting Hygiene (QC): 5 Toilet/Commode Transfer(FIM): 5 Toilet/Commode Transfer (QC): 5 Shower Transfer(FIM): 5 Additional Goals: 2-Verbalize Understanding, 3-ImproveStrength/Tacho 1=Demonstrate adherence to instructed precautions during ADL tasks. 2=Patient will verbalize/demonstrate understanding of assistive devices/ modifications for ADL. 3=Patient will improve strength/tolerance for activity to enable patient to perform ADL's. NIGHAT LANZA PT Jan 24, 2017 11:27
[2017-01-24 13:40] VITALS: BP 125/74
--- NOTE | 2017-01-24 15:38 | Therapy Team Discharge Summary ---
Therapy Discharge Summary Discharge Recommendations Date of Discharge 01-24-17 Therapy D/C Recommendations: Occupational Therapy Home Care, Physical Therapy Home Care Occupational Therapy Pt seen for skilled OT to increase her independence in basic self care to allow her to safely return to her home and to decrease caregiver burden, after a fall with L UE and L LE fx. She was allowed to be WBAT with L LE but not weight bearing L UE.On admission she was able to feed herself and groom with setup, required mod assist with bathing and was dependant with upper and lower body dressing, toileting and toilet transfers. By discharge she had progressed to independent with bathing and was modified independent in all other ADLs. She used center hold walker, sock aid, dressing stick, shower bench, BSC, grab bars and hand held shower. She was able to get all needed equipment prior to discharge. Home health OT is recommended. See tx plan for goals met. DC OT. Decreased Activ Tolerance, Decreased UE Strength, Dependent Transfers, Impaired Self-Care Skills, Restricted Funct UE ROM PT Half-Way Goals Half-Way Goals PT Half-Way Goals Time Frame: Jan 25, 2017 Transfers (B,C,W/C) (FIM): 6 Roll Left to Right (QC): 6 Sit to Lying (QC): 6 Lying-Sitting on Side/Bed(QC): 6 Sit to Stand (QC): 6 Chair/Yjo-hw-Sdpvi Xfer(QC): 6 Car Transfer (QC): 6 Does the Patient Walk: Yes Gait (FIM): 6 Gait distance (FIM): 3=150 ft Walk 10 feet (QC): 6 Walk 10ft-Uneven Surface(QC): 6 Walk 50ft with 2 Turns (QC): 6 Walk 150 ft (QC): 6 Gait Assistive Device: Cane Small Base Quad (or 1 handed walker) Does the Pt use WC or Scooter?: No Stairs (FIM): 2 # of Steps: 4 1 Step (curb) (QC): 5 4 Steps (QC): 5 12 Steps (QC): 0 (dash) Picking up an Object (QC): 5 OT Half-Way Goals [employer]er [employer] Goals Time Frame: Jan 25, 2017 Eating (FIM): 6 (met 01-23-17) Eating (QC): 6 (met 01-23-17) Oral Hygiene (QC): 6 (met 01-23-17) Grooming(FIM): 6 (met 01-23-17) Bathing(FIM): 5 (met 01-23-17) Shower/Bathe Self (QC): 5 (met 01-23-17) Upper Body Dressing(FIM): 5 (met 01-23-17) Upper Body Dressing (QC): 5 (met 01-23-17) Lower Body Dressing(FIM): 5 (met 01-23-17) Lower Body Dressing (QC): 5 (met 01-23-17) On/Off Footwear (QC): 5 (met 01-23-17) Toileting(FIM): 6 (met 01-23-17) Toileting Hygiene (QC): 5 (met 01-23-17) Toilet/Commode Transfer(FIM): 5 (met 01-23-17) Toilet/Commode Transfer (QC): 5 (met 01-23-17) Shower Transfer(FIM): 5 (met 01-23-17) Additional Goals: 2-Verbalize Understanding, 3-ImproveStrength/Tacho 1=Demonstrate adherence to instructed precautions during ADL tasks. 2=Patient will verbalize/demonstrate understanding of assistive devices/ modifications for ADL. 3=Patient will improve strength/tolerance for activity to enable patient to perform ADL's. YAMILET JERONIMO OT Jan 24, 2017 15:38
--- NOTE | 2017-01-25 06:01 | DISCHARGE SUMMARY ---
DATE OF SERVICE: HISTORY OF PRESENT ILLNESS: The patient is a 76-year-old female with a past medical history significant for lung cancer status post lobectomy as well as hypertension and right CVA with mild left hemiparesis and Thalassemia with chronic anemia, who presented to ED following a fall at home on 01/01/2017. She was found to have a left humerus fracture and periprosthetic left hip fracture. Telephone consult with Dr. Bae, orthopedics, who recommended a sling for left arm and weightbearing as tolerated to the left lower extremity. The patient was started on therapies, felt to be appropriate for inpatient rehabilitation unit. She had been independent prior to this. She had a cat and dog at home. She had been modified independent with a cane prior to this. PAST MEDICAL HISTORY: Arthritis, prior right CVA with left hemiparesis, GERD, hypertension, hypothyroidism, chronic back pain and as per above, bilateral hip replacements with Dr. Bae, back surgery x4, excision of skin cancer, partial amputation of the thumb. She reports having tripped over her cat at home causing her fall. 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 MEDICAL COURSE: The patient was followed by Dr. Meier and hospitalist service while on rehab unit. She had urinary retention. Dr. Ochoa assessed her, started her on medication, then had a trial of voiding with the Silva catheter up and she was voiding well. She did develop a UTI and was placed on an antibiotic for that. She developed some nausea, which responded to a scopolamine patch. The patient declined iron replacement in the form of a pill that she said that did not help due to her thalassemia diagnosis. The patient was seen by Dr. Bae's employment assistant, who recommended continue with weightbearing as tolerated on the left lower extremity and continue with sling on the left arm. Despite this, she did progress with therapies and is able to return home with home healthcare and assistance from her family as needed. Her UA was abnormal on 01/19 and she was started on Macrobid. Urine culture showed Enterococcus faecalis and Streptococcus viridans. She was afebrile during her stay. Her blood pressure on 01/24/2017 was 125/74, respirations 18, pulse 64 and O2 sat 95% on room air. REHABILITATION COURSE: She was assessed by speech therapy upon admission to the rehab unit, found to be cognitively intact and they signed off. PT notes upon admission, the patient performed bed mobility and transfers with max assist, did not ambulate or propel a wheelchair. Upon discharge, she is standby assist to modified independent for bed mobility, modified independent for car transfers and can ambulate 250 feet with a center hold walker, modified independent. OT notes upon admission, she was able to feed herself and groom herself with setup, required mod assist with bathing and was dependent with dressing, toileting and toilet transfers. By discharge, she progressed to independent with bathing and was modified independent with all other ADLs. She uses a center hold walker, sock aid, dressing, stick shower bench, bedside commode, grab bars and handheld shower. She was able to get all needed equipment prior to discharge. DISCHARGE INSTRUCTIONS: She is discharged to home with family and home health care. She will have followup with Dr. Graf, PCP and Dr. Bae and Dr. Ochoa as needed. Continue current diet. DISCHARGE MEDICATIONS: Colace 100 mg p.o. b.i.d., meclizine 25 mg p.o. t.i.d. p.r.n. vertigo, Macrodantin 100 mg p.o. b.i.d. for 5 days, scopolamine patch 1.5 mg topically every 3 days, amlodipine 10 mg p.o. daily, Plavix 75 mg p.o. every other day, hydrochlorothiazide 25 mg p.o. daily, hydrocodone/APAP 1 tablet p.o. q.6 hours p.r.n. moderate pain, levothyroxine 50 mcg p.o. daily, lisinopril 40 mg p.o. each day at bedtime, Reglan 10 mg p.o. t.i.d. with meals, fish oil 2000 mg p.o. b.i.d., Protonix 40 mg p.o. daily, Restoril 15 mg p.o. at each day at bedtime, PreserVision capsules one capsule p.o. b.i.d. and vitamin B complex one capsule p.o. daily. DISCHARGE DIAGNOSES: 1. Ambulatory dysfunction secondary to fall with resulting left humerus fracture managed with sling and left periprosthetic hip fracture managed nonsurgically, weightbearing as tolerated, improving. 2. 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 3. Urinary tract infection, under treatment. 4. Urinary retention, improved with medication. 5. Gastroesophageal reflux disease, on medication. 6. Hypertension, controlled with medication. 7. Hypothyroidism, on replacement. 8. Chronic back pain with history of back surgery x4, on pain meds. 9. History of lung cancer status post lobectomy. 10. Status post partial amputation of the thumb, remote. 11. Thalassemia associated with chronic anemia. CONDITION AT DISCHARGE: Improved and stable. PROGNOSIS: Rehab prognosis appears good for continued improvement at home with return independent once her restrictions on her left upper limb are discontinued by orthopedics. Job ID: [id number] DocumentID: [id number] Dictated Date: 01/24/2017 17:27:41 Nascar Driver Date: 01/25/2017 05:35:05 Dictated By: REBEKAH MEIER MD
[2017-01-25] MEDS ORDERED: SCOPOLAMINE PATCH REMOVAL TP SCH (09:59)
== END 2017-01-24 13:40 | disposition home health service (06) | DRG 560 ==
PROVIDERS: ADMIT Physical Medicine & Rehabilitation; ATTEND Physical Medicine & Rehabilitation
DX: M97.02XD Periprosthetic fracture around internal prosthetic left hip joint, subsequent encounter (principal); S42.302D Unspecified fracture of shaft of humerus, left arm, subsequent encounter for fracture with routine healing; I69.354 Hemiplegia and hemiparesis following cerebral infarction affecting left non-dominant side; D56.9 Thalassemia, unspecified; I10 Essential (primary) hypertension; T83.511A Infection and inflammatory reaction due to indwelling urethral catheter, initial encounter; N39.0 Urinary tract infection, site not specified; B95.2 Enterococcus as the cause of diseases classified elsewhere; B95.4 Other streptococcus as the cause of diseases classified elsewhere; Z23 Encounter for immunization; R33.9 Retention of urine, unspecified; K59.00 Constipation, unspecified; E03.9 Hypothyroidism, unspecified; M54.9 Dorsalgia, unspecified; K21.9 Gastro-esophageal reflux disease without esophagitis; J44.9 Chronic obstructive pulmonary disease, unspecified; R42 Dizziness and giddiness; R11.0 Nausea; Z85.118 Personal history of other malignant neoplasm of bronchus and lung; W01.0XXD Fall on same level from slipping, tripping and stumbling without subsequent striking against object, subsequent encounter; Y92.019 Unspecified place in single-family (private) house as the place of occurrence of the external cause; Z90.2 Acquired absence of lung [part of]
CPT/HCPCS: 81000; 87077; 87088; 87186; 94664

== ENCOUNTER 2017-01-24 13:37 | Outpatient (RCR) | payer MEDICARE, OTHER ==
[~2017-01-24 13:37] MED LIST changes: +DOCU100C37 PO; +NITR100C10 PO; +PHEN-826 PO; +SCOP1PAT11 TOP; -morphine INJ 4 MG/ML 1 ML (VIAL/SYRINGE) IVP PRN
[2017-01-24 14:02] LABS: BASOPHILS % (AUTO) 0 % (0-10); EOSINOPHILS # (AUTO) 0.1 10^3/uL (0.0-0.3); EOSINOPHILS % (AUTO) 2 % (0-10); HEMATOCRIT 34 % (35-52); HEMOGLOBIN 10.9 G/DL (11.5-16.0); LYMPHOCYTES # (AUTO) 1.5 X 10^3 (1.0-4.0); LYMPHOCYTES % (AUTO) 21 % (12-44); MEAN CORPUSCULAR HEMOGLOBIN 24 PG (25-34); MEAN CORPUSCULAR HGB CONC 33 G/DL (32-36); MEAN CORPUSCULAR VOLUME 73 FL (80-99); MEAN PLATELET VOLUME 9.3 FL (7.4-10.4); MONOCYTES # (AUTO) 0.8 X 10^3 (0.0-1.0); MONOCYTES % (AUTO) 12 % (0-12); NEUTROPHILS # (AUTO) 4.4 X 10^3 (1.8-7.8); NEUTROPHILS % (AUTO) 65 % (42-75); PLATELET COUNT 403 10^3/uL (130-400); RED BLOOD COUNT 4.62 10^6/uL (4.35-5.85); RED CELL DISTRIBUTION WIDTH 13.9 % (10.0-14.5); WHITE BLOOD COUNT 6.8 10^3/uL (4.3-11.0)
[2017-01-24 14:26] LABS: ALBUMIN 3.8 GM/DL (3.2-4.5); BILIRUBIN,TOTAL 0.4 MG/DL (0.1-1.0); CALCIUM 9.4 MG/DL (8.5-10.1); CREATININE SERUM 0.92 MG/DL (0.60-1.30); TOTAL PROTEIN 7.3 GM/DL (6.4-8.2)
== END 2017-04-24 | disposition home or self-care (01) ==
LOC: ONC 13:37
PROVIDERS: ATTEND Internal Medicine Hematology & Oncology
DX: C34.11 Malignant neoplasm of upper lobe, right bronchus or lung (principal); D64.9 Anemia, unspecified; I10 Essential (primary) hypertension; E78.5 Hyperlipidemia, unspecified; E03.9 Hypothyroidism, unspecified; K21.9 Gastro-esophageal reflux disease without esophagitis; F17.210 Nicotine dependence, cigarettes, uncomplicated; Z79.899 Other long term (current) drug therapy
CPT/HCPCS: 36415; 80053; 82378; 85025; 99213

== ENCOUNTER → 2017-06-07 | Outpatient (CLI) | payer MEDICARE, OTHER ==
[~2017-06-07] MED LIST changes: +ACET325T49 PO; +DEXA4TAB PO; +GADOBUTROL 7.5 MMOL/7.5 ML (GADAVIST) VIAL IV ONE; +HEPA500018 SC; +INSU100V16 SC; +LISI-552 PO; +PANT40TA2 PO; +SENN-20 PO
--- NOTE | 2017-06-07 10:47 | Diagnostic Imaging Report ---
PROCEDURE: CT head without contrast. TECHNIQUE: Multiple contiguous axial images were obtained through the brain without the use of intravenous contrast. INDICATION: Dizziness and falls. Comparison is made with prior head CT from 12/04/2009. FINDINGS: A significant adverse appearance to the brain is noted. There is a large amount of edema now present in the left frontal lobe, suspicious for underlying mass with associated vasogenic edema. This does create mass effect on the left lateral ventricle with shift of the midline left to right of approximately 6 mm. There is small region of hyperdensity in the left frontal lobe as well just posterior to the edema suggestive of hemorrhage. This may be intraparenchymal. Large amount of periventricular hypodensity is noted consistent with chronic microvascular ischemia. No significant hydrocephalus is seen. Cisterns are patent. IMPRESSION: Large amount of edema is present in the left frontal lobe with mass effect and midline shift left to right. Features are concerning for underlying brain mass with surrounding vasogenic edema. There also appears to be some minimal acute hemorrhage present in the left frontal lobe. Further evaluation with MRI of the brain with and without contrast is recommended and will be performed today. Results were discussed with Dr. Graf prior to this dictation. Dictated by: Dictated on workstation # [id number]
--- NOTE | 2017-06-07 10:50 | Diagnostic Imaging Report ---
INDICATION: Fall bruising to lateral right foot. TIME OF EXAM: 11:28 AM FINDINGS: Three views of the right foot demonstrate an acute fracture midshaft fifth metatarsal. No displacement or angulation is seen. Remaining metatarsals are intact. Phalanges are intact. Midfoot and hindfoot are unremarkable. IMPRESSION: Nondisplaced midshaft fifth metatarsal fracture. Dictated by: Dictated on workstation # [id number]
--- NOTE | 2017-06-07 12:24 | Diagnostic Imaging Report ---
PROCEDURE: MR imaging of the brain with and without contrast. TECHNIQUE: Multiplanar, multisequence MR imaging of the brain was performed with and without contrast. INDICATION: Headache and dizziness. Patient had abnormal head CT earlier same day. COMPARISON: Correlation is made with head CT earlier the same day. FINDINGS: There is a large peripherally enhancing mass occupying the left frontal lobe, corresponding with CT abnormality. This measures approximately 6.6 cm AP x 5.0 cm transverse x 4.7 cm cephalocaudal. There is central low T1 signal present suggestive of necrosis. There is a large amount of surrounding T2 signal consistent with vasogenic edema. This does produce mass effect on the left frontal horn with midline shift left to right approximately 5-6 mm. The mass does appear to abut the dura. There may be some thickening and enhancement of the adjacent dura as well. No other enhancing lesions are seen. No intracranial hemorrhage is detected. Corpus callosum is unremarkable. The sella and parasellar structures are unremarkable. No diffusion restriction is seen. The normal expected flow-voids are carotid siphons are identified. Extensive periventricular white matter changes are noted, perhaps on basis of chronic microvascular ischemia. 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 There is a large amount of surrounding vasogenic edema with mass effect on the left frontal horn and midline shift left to right. Features are most suggestive of a neoplastic process either primary or metastatic. No other enhancing lesions are seen. No definite acute intracranial hemorrhage is identified. Results will be called to Dr. Graf. Dictated by: Dictated on workstation # [id number]
== END ==
LOC: RAD 10:11
PROVIDERS: ATTEND Internal Medicine
DX: S92.354A Nondisplaced fracture of fifth metatarsal bone, right foot, initial encounter for closed fracture (principal); G93.6 Cerebral edema; I67.89 Other cerebrovascular disease; G93.89 Other specified disorders of brain
CPT/HCPCS: 70450; 70553; 73630

== ENCOUNTER 2017-06-11 22:32 | Inpatient (IN) | payer MEDICARE, OTHER ==
[~2017-06-11] VITALS: Ht 162.6 cm; Wt 57.7 kg
[~2017-06-11 22:32] MED LIST changes: -ACET325T49 PO; -DEXA4TAB PO; -GADOBUTROL 7.5 MMOL/7.5 ML (GADAVIST) VIAL IV ONE; -HEPA500018 SC; -INSU100V16 SC; -LISI-552 PO; -PANT40TA2 PO; -SENN-20 PO
[2017-06-11 22:56] LABS: BASOPHILS % (AUTO) 0 % (0-10); EOSINOPHILS % (AUTO) 0 % (0-10); HEMATOCRIT 35 % (35-52); HEMOGLOBIN 11.8 G/DL (11.5-16.0); LYMPHOCYTES # (AUTO) 1.1 X 10^3 (1.0-4.0); LYMPHOCYTES % (AUTO) 14 % (12-44); MEAN CORPUSCULAR HEMOGLOBIN 23 PG (25-34); MEAN CORPUSCULAR HGB CONC 34 G/DL (32-36); MEAN CORPUSCULAR VOLUME 70 FL (80-99); MEAN PLATELET VOLUME 10.9 FL (7.4-10.4); MONOCYTES # (AUTO) 0.4 X 10^3 (0.0-1.0); MONOCYTES % (AUTO) 5 % (0-12); NEUTROPHILS # (AUTO) 6.3 X 10^3 (1.8-7.8); NEUTROPHILS % (AUTO) 81 % (42-75); PLATELET COUNT 351 10^3/uL (130-400); RED BLOOD COUNT 5.05 10^6/uL (4.35-5.85); RED CELL DISTRIBUTION WIDTH 14.6 % (10.0-14.5); WHITE BLOOD COUNT 7.8 10^3/uL (4.3-11.0)
[2017-06-11] MEDS ORDERED: NS IV 1000 ML 1,000 ML IV ONE (23:01)
[2017-06-11 23:13] LABS: ALANINE AMINOTRANSFERASE 9 U/L (0-55); ALBUMIN 4.1 GM/DL (3.2-4.5); ALKALINE PHOSPHATASE 75 U/L (40-136); BILIRUBIN,TOTAL 0.6 MG/DL (0.1-1.0); BUN/CREATININE RATIO 9; CALCIUM 9.8 MG/DL (8.5-10.1); CARBON DIOXIDE 21 MMOL/L (21-32); CHLORIDE 94 MMOL/L (98-107); CREATININE SERUM 0.65 MG/DL (0.60-1.30); GFR ESTIMATED > 60; GLUCOSE 194 MG/DL (70-105); POTASSIUM 3.4 MMOL/L (3.6-5.0); SODIUM 132 MMOL/L (135-145); TOTAL PROTEIN 7.4 GM/DL (6.4-8.2)
[2017-06-11] MEDS ORDERED: DEXAMETHASONE 10 MG/ML (DECADRON) 1 ML VIAL IV ONE (23:15)
[2017-06-12] VITALS (8 sets, daily range): BP systolic 136–184; BP diastolic 58–81
[2017-06-12] MEDS ORDERED: fentaNYL INJECTION 100 MCG/2 ML AMP IVP STA (00:16)
--- NOTE | 2017-06-12 00:23 | ED General ---
General Chief Complaint: Abdominal/GI Problems Stated Complaint: FLUID RETENTION/VOMITING Nursing Triage Note: Pt c/o N/V that began this afternoon. Dx with brain cancer today. hx of lung can. Nursing Sepsis Screen: No Definite Risk Source of Information: Patient Exam Limitations: No Limitations History of Present Illness Date Seen by Provider: June 11, 2017 Time Seen by Provider: 22:45 Initial Comments Here with report of nausea and vomiting that began this afternoon. Recent diagnosis of brain cancer with edema. She was prescribed steroids. Had not filled them yet and has had persistent nausea and vomiting with that. Brain cancer is left frontal lobe with edema. Patient states that she vomited multiple times. Family at bedside and states that she is increasingly weak. No report of fever or chills. Timing/Duration: 4-6 Hours Severity: Moderate, Severe Modifying Factors: worse with Eating Associated Systoms: No Cough, No Fever/Chills; Headaches, Nausea/Vomiting; No Shortness of Air; Weakness Allergies and Home Medications Allergies Coded Allergies: valsartan (Verified Allergy, Intermediate, HIVES, 02/01/15) Sulfa (Sulfonamide Antibiotics) (Verified Allergy, Unknown, 04/15/08) prochlorperazine (Verified Allergy, Unknown, 04/15/08) Home Medications Amlodipine Besylate 10 Mg Tablet, 10 MG PO DAILY, (Reported) Clopidogrel Bisulfate 75 Mg Tablet, 75 MG PO Q48H, (Reported) Hydrochlorothiazide 25 Mg Tablet, 25 MG PO DAILY, (Reported) Hydrocodone/Acetaminophen 1 Each Tablet, 1 TAB PO Q6H PRN for PAIN-MODERATE Prescribed by: REBEKAH GRECO on 01/23/17 [address] [place] [address] 3 Polyunsat Fatty Acids 1,000 Mg Cap, 2,000 MG PO BID, (Reported) TAKES 2 (1000MG) CAPSULES Temazepam 15 Mg Capsule, 15 MG PO HS, (Reported) Vit C/E/Zn/Coppr/Lutein/Zeaxan 1 Each Capsule, 1 CAP PO BID, (Reported) Vitamin B Complex 1 Each Capsule, 1 CAP PO DAILY, (Reported) Patient Home Medication List Home Medication List Reviewed: Yes Review of Systems Constitutional: see HPI; No chills, No fever EENTM: no symptoms reported Respiratory: no symptoms reported Cardiovascular: no symptoms reported Gastrointestinal: nausea, vomiting Genitourinary: no symptoms reported Musculoskeletal: no symptoms reported Skin: no symptoms reported Psychiatric/Neurological: Headache, Weakness All Other Systems Reviewed Negative Unless Noted: Yes Past Meeibvr-Rllhzn-Mgvtag Hx Past Med/Social Hx: Reviewed Nursing Past Med/Soc Hx Patient Social History Alcohol Use: Denies Use Recreational Drug Use: No Type Used: Cigarettes 2nd Hand Smoke Exposure: No Recent Foreign Travel: No Contact w/Someone Who Travel: No Recent Infectious Disease Expo: No Recent Hopitalizations: No Physical Abuse: No Sexual Abuse: No Mistreated: No Fear: No Immunizations Up To Date Tetanus Booster (TDap): Unknown Date of Pneumonia Vaccine: July 01, 2015 Date of Influenza Vaccine: Jan 18, 2017 Seasonal Allergies Seasonal Allergies: No Past Medical History Surgeries: Yes (THUMB AMPUTATED, TOTAL HIPS BILATERAL, BACK SURGRY X4, skin cancer ) Joint Replacement, Lobectomy, Orthopedic Respiratory: No (LUNG CA -lobectomy upper/middle) Currently Using CPAP: No Currently Using BIPAP: No Cardiac: Yes (ATRIAL SEPTAL DEFECT-SMALL, MVP) Hypertension Neurological: No Stroke Reproductive Disorders: No Sexually Transmitted Disease: No HIV/AIDS: No Genitourinary: No Gastrointestinal: Yes Gastroesophageal Reflux Musculoskeletal: Yes (Zack TH; back surg x 3) Degenerate Disk Disease, Arthritis, Chronic Back Pain, Fractures Endocrine: Yes (controlled DM with diet) Hypothyroidsim HEENT: No Loss of Vision: Denies Hearing Impairment: Denies Cancer: Yes (SQUAMOUS CELL THUMB, LIP, SHOULDER) Brain, Lung Did You Recieve Any Treatments: Yes What Type of Treatment Did You: Surgical Intervention Psychosocial: No Nursing Suicide Risk Score: 1 Integumentary: No Blood Disorders: Yes (FORM OF ANEMIA) Adverse Reaction/Blood Tranf: No (HAS HAD TRANSFUSION WITHOUT REACTION) Family Medical History Reviewed Nursing Family Hx Cancer Physical Exam Vital Signs Vital Signs - First Documented 06/11/17 22:36 Temp 98.0 Pulse 121 Resp 18 B/P (MAP) 196/130 (152) Pulse Ox 96 O2 Delivery Room Air Capillary Refill : Less Than 3 Seconds General Appearance: No Apparent Distress, WD/WN HEENT: PERRL/EOMI, Pharynx Normal Neck: Non Tender, Supple Respiratory: Lungs Clear, Normal Breath Sounds Cardiovascular: No Murmur, Tachycardia Gastrointestinal: Non Tender, Soft Back: Normal Inspection, No CVA Tenderness, No Vertebral Tenderness Extremity: Normal Range of Motion, Non Tender Neurologic/Psychiatric: Alert, Oriented x3 Skin: Normal Color, Warm/Dry Progress/Results/Core Measures Suspected Sepsis Recent Fever Within 48 Hours: No Infection Criteria Present: None New/Unexplained Altered Menta: No Sepsis Screen: No Definite Risk SIRS Temperature:98.0 Pulse: 121 Respiratory Rate: 18 Laboratory Tests 06/11/17 22:38: White Blood Count 7.8 Blood Pressure 196 /130 Mean: 152 Laboratory Tests 06/11/17 22:38: Creatinine 0.65, Platelet Count 351, Total Bilirubin 0.6 Results/Orders Lab Results Laboratory Tests Test 06/11/17 22:38 Range/Units White Blood Count 7.8 4.3-11.0 10^3/uL Red Blood Count 5.05 4.35-5.85 10^6/uL Hemoglobin 11.8 11.5-16.0 G/DL Hematocrit 35 35-52 % Mean Corpuscular Volume 70 L 80-99 FL Mean Corpuscular Hemoglobin 23 L 25-34 PG Mean Corpuscular Hemoglobin Concent 34 32-36 G/DL Red Cell Distribution Width 14.6 H 10.0-14.5 % Platelet Count 351 130-400 10^3/uL Mean Platelet Volume 10.9 H 7.4-10.4 FL Neutrophils (%) (Auto) 81 H 42-75 % Lymphocytes (%) (Auto) 14 12-44 % Monocytes (%) (Auto) 5 0-12 % Eosinophils (%) (Auto) 0 0-10 % Basophils (%) (Auto) 0 0-10 % Neutrophils # (Auto) 6.3 1.8-7.8 X 10^3 Lymphocytes # (Auto) 1.1 1.0-4.0 X 10^3 Monocytes # (Auto) 0.4 0.0-1.0 X 10^3 Eosinophils # (Auto) 0.0 0.0-0.3 10^3/uL Basophils # (Auto) 0.0 0.0-0.1 10^3/uL Sodium Level 132 L 135-145 MMOL/L Potassium Level 3.4 L 3.6-5.0 MMOL/L Chloride Level 94 L 98-107 MMOL/L Carbon Dioxide Level 21 21-32 MMOL/L Anion Gap 17 H 5-14 MMOL/L Blood Urea Nitrogen 6 L 7-18 MG/DL Creatinine 0.65 0.60-1.30 MG/DL Estimat Glomerular Filtration Rate > 60 BUN/Creatinine Ratio 9 Glucose Level 194 H 70-105 MG/DL Calcium Level 9.8 8.5-10.1 MG/DL Total Bilirubin 0.6 0.1-1.0 MG/DL Aspartate Amino Transf (AST/SGOT) 14 5-34 U/L Alanine Aminotransferase (ALT/SGPT) 9 0-55 U/L Alkaline Phosphatase 75 40-136 U/L Total Protein 7.4 6.4-8.2 GM/DL Albumin 4.1 3.2-4.5 GM/DL My Orders Orders - CARMEN GORDON MD Comprehensive Metabolic Panel (06/11/17 22:48) Cbc With Automated Diff (06/11/17 22:48) Dexamethasone Injection (Decadron Inject (06/11/17 23:15) Ns Iv 1000 Ml (Sodium Chloride 0.9%) (06/11/17 23:01) Fentanyl Injection (Sublimaze Injection (06/12/17 00:16) Medications Given in ED Current Medications Medications Dose Ordered Sig/Beena Route Start Time Stop Time Status Last Admin Dose Admin Dexamethasone Sodium Phosphate 10 mg ONCE ONCE IV 06/11/17 23:15 06/11/17 23:16 DC 06/11/17 23:13 10 MG Sodium Chloride 1,000 ml @ 0 mls/hr Q0M ONCE IV 06/11/17 23:01 06/11/17 23:02 DC 06/11/17 23:13 0 MLS/HR Vital Signs/I&O 06/11/17 22:36 Temp 98.0 Pulse 121 Resp 18 B/P (MAP) 196/130 (152) Pulse Ox 96 O2 Delivery Room Air Capillary Refill : Less Than 3 Seconds Blood Pressure Mean: 152 Progress Note : Progress Note Seen and evaluated. Reviewed recent CT scan and MRI. IV established by EMS and they did give Zofran 4 mg IV. This has helped her nausea. Decadron 10 mg IV ordered. I did discuss the case with Dr. Rueda at [phone]. She is recommending Decadron 4 mg IV every 6 hours as well as Zofran 8 mg IV every 8 hours. Also asked for hospitalist admission. I discussed the case with Dr. DIETZ at [phone] and he exerts patient for admission, inpatient status. Normal saline 1 L bolus was ordered and given. Labs have been ordered and evaluated. Family informed and agree with plan. Departure Communication (Admissions) Time/Spoke to Admitting Phy: 23:42 Time/Spoke to Consulting Phy: 23:36 Impression Primary Impression: Brain cancer Qualified Codes: C71.1 - Malignant neoplasm of frontal lobe Additional Impression: Intractable nausea and vomiting Qualified Codes: R11.2 - Nausea with vomiting, unspecified Disposition: ADMITTED INPATIENT Condition: Stable Admissions Decision to Admit Reason: Admit from ER (General) Decision to Admit/Date: June 11, 2017 Time/Decision to Admit Time: 23:36 Departure-Patient Inst. Referrals: ALEXIS JACKSON DO (PCP/Family) Primary Care Physician CARMEN GORDON MD June 12, 2017 00:23
[2017-06-12] MEDS ORDERED: NS IV 1000 ML 1,000 ML ONE (04:04)
[2017-06-12] MEDS ORDERED: fentaNYL INJECTION 100 MCG/2 ML AMP IV PRN (04:15)
[2017-06-12] MEDS: NS IV 1000 ML 1,000 ML IV SCH ×2 (04:28→16:18)
[2017-06-12] MEDS: CATHETER FLUSH 10 ML SYR IV SCH ×3 (04:28→20:43)
[2017-06-12] MEDS ORDERED: CATHETER FLUSH 10 ML SYR IV PRN (04:30)
[2017-06-12] MEDS ORDERED: ONDANSETRON 4 MG/2 ML (SDV) Z0FRAN IV PRN (04:30)
[2017-06-12] MEDS: DEXAMETHASONE 4 MG/ML SDV (DECADRON) IV SCH ×4 (05:41→23:02)
[2017-06-12 06:01] LABS: BASOPHILS % (AUTO) 0 % (0-10); EOSINOPHILS % (AUTO) 0 % (0-10); HEMATOCRIT 32 % (35-52); HEMOGLOBIN 10.9 G/DL (11.5-16.0); LYMPHOCYTES # (AUTO) 0.5 X 10^3 (1.0-4.0); LYMPHOCYTES % (AUTO) 10 % (12-44); MEAN CORPUSCULAR HEMOGLOBIN 23 PG (25-34); MEAN CORPUSCULAR HGB CONC 34 G/DL (32-36); MEAN CORPUSCULAR VOLUME 69 FL (80-99); MEAN PLATELET VOLUME 10.8 FL (7.4-10.4); MONOCYTES % (AUTO) 0 % (0-12); NEUTROPHILS # (AUTO) 4.2 X 10^3 (1.8-7.8); NEUTROPHILS % (AUTO) 89 % (42-75); PLATELET COUNT 304 10^3/uL (130-400); RED BLOOD COUNT 4.67 10^6/uL (4.35-5.85); RED CELL DISTRIBUTION WIDTH 14.8 % (10.0-14.5); WHITE BLOOD COUNT 4.7 10^3/uL (4.3-11.0)
[2017-06-12 06:27] LABS: ALANINE AMINOTRANSFERASE 6 U/L (0-55); ALBUMIN 3.7 GM/DL (3.2-4.5); ALKALINE PHOSPHATASE 63 U/L (40-136); BILIRUBIN,TOTAL 0.4 MG/DL (0.1-1.0); BUN/CREATININE RATIO 10; CARBON DIOXIDE 23 MMOL/L (21-32); CHLORIDE 99 MMOL/L (98-107); CREATININE SERUM 0.59 MG/DL (0.60-1.30); GFR ESTIMATED > 60; GLUCOSE 180 MG/DL (70-105); POTASSIUM 3.5 MMOL/L (3.6-5.0); SODIUM 133 MMOL/L (135-145); TOTAL PROTEIN 6.7 GM/DL (6.4-8.2)
--- NOTE | 2017-06-12 10:10 | History & Physical-Hospitalist ---
History of Present Illness HPI/Chief Complaint Pt is 77yoCF with a recent diagnosis of brain tumor who presented to the ER with chief complaints of nausea and vomiting. She is unable to provide me any history at this time as she only talks about the sign in her room that "Call don 't fall." When asked if she had had any nausea she says yes. The only medical history she can inform me of was a history of a stroke. She states this was diagnosed 1 month ago and that she was treated "at home" for this. She has no family at bedside to supplement her history. I discussed with Dr Rueda who has seen her in the cancer center once. She previously followed with Dr Muhammad for Stage 1 adenocarcinoma of the lung and underwent resection and completed treatment. She saw Dr Rueda 6 months ago for follow up and was scheduled to see her again this week. Source: patient Date Seen 06/12/17 Time Seen by Provider: 09:55 Attending Physician Joseph Najera MD PCP Alexis Jackson DO Referring Physician Date of Admission June 11, 2017 at 23:42 Home Medications & Allergies Home Medications Reviewed patient Home Medication Reconciliation performed by pharmacy medication reconciliations hydroelectric plant technician and/or nursing. Patients Allergies have been reviewed. Allergies Allergies Coded Allergies valsartan (Verified Allergy, Intermediate, HIVES, 02/01/15) Sulfa (Sulfonamide Antibiotics) (Verified Allergy, Unknown, 04/15/08) prochlorperazine (Verified Allergy, Unknown, 04/15/08) Past Kinkels-Yzaixl-Zuwhfh Hx Past Med/Social Hx: Reviewed Nursing Past Med/Soc Hx Patient Social History Alcohol Use: Denies Use Recreational Drug Use: No Smoking Status: Former Smoker Type Used: Cigarettes 2nd Hand Smoke Exposure: No Recent Foreign Travel: No Contact w/other who traveled: No Recent Hopitalizations: No Recent Infectious Disease Expo: No Immunizations Up To Date Tetanus Booster (TDap): Unknown Date of Pneumonia Vaccine: July 01, 2015 Date of Influenza Vaccine: Jan 18, 2017 Seasonal Allergies Seasonal Allergies: No Past Medical History Surgeries: Joint Replacement, Lobectomy, Orthopedic Currently Using CPAP: No Currently Using BIPAP: No Cardiac: Hypertension Neurological: Stroke Reproductive: No Sexually Transmitted Disease: No HIV/AIDS: No Gastrointestinal: Gastroesophageal Reflux Musculoskeletal: Degenerate Disk Disease, Arthritis, Chronic Back Pain, Fractures Endocrine: Hypothyroidsim Loss of Vision: Denies Hearing Impairment: Denies Cancer: Brain, Lung Did You Recieve Any Treatments: Yes What Type of Treatment Did You: Chemotherapy, Surgical Intervention History of Blood Disorders: Yes (FORM OF ANEMIA) Adverse Reaction to Blood Johnson: No (HAS HAD TRANSFUSION WITHOUT REACTION) Family History Reviewed Nursing Family Hx Patient reports no known family medical history. Cancer Review of Systems ROS-Unable to Obtain: confusion Constitutional: see HPI Physical Exam Physical Exam Vital Signs Vital Signs - First Documented 06/11/17 22:36 Temp 98.0 Pulse 121 Resp 18 B/P (MAP) 196/130 (152) Pulse Ox 96 O2 Delivery Room Air Capillary Refill : Less Than 3 Seconds General Appearance: Chronically ill, Other (laying in bed, appears comfortale ) HEENT: Moist Mucous Membranes; No Scleral Icterus (L), No Scleral Icterus (R) Neck: Non Tender, Supple; No JVD, No Thyromegaly Respiratory: Lungs Clear, No Respiratory Distress Cardiovascular: Regular Rate, Rhythm, No Murmur Gastrointestinal: Normal Bowel Sounds, Soft Extremity: Normal Capillary Refill, No Calf Tenderness, No Pedal Edema Neurologic/Psychiatric: Alert, No Motor/Sensory Deficits, ship's master II-XII Norm as Tested, Disoriented Skin: Normal Color, Warm/Dry Results Results/Procedures Labs Laboratory Tests 06/11/17 22:38 06/12/17 05:13 Patient resulted labs reviewed. Imaging: Reviewed Imaging Films, Reviewed Imaging Report Assessment/Plan Admission Diagnosis brain tumor and intractable nausea and vomiting Admission Status: Inpatient Order (span 2 midnights) Reason for Inpatient Admission: failed outpatient mangement Critical Care Critically Ill Patient Diagnosis/Problems Diagnosis/Problems (1) Altered mental status Status: Acute Assessment & Plan: I discussed with Dr Jackson- normally alert and oriented though he saw her yesterday and she was confused though not markedly so He did obtain history of a fall from family that they believe occurred yesterday She is acutely altered today Will get stat CT Head given findings of edema, midline shift, and minimal acute hemorrhage Qualifiers: Altered mental status type: transient alteration of awareness Qualified Codes: R40.4 - Transient alteration of awareness (2) Intractable nausea and vomiting Status: Acute Assessment & Plan: Continue Zofran and Decadron as symptoms improving Qualifiers: Vomiting type: unspecified Qualified Codes: R11.2 - Nausea with vomiting, unspecified (3) Brain cancer Status: Acute Assessment & Plan: Unsure if new primary or metastatic disease Dr Rueda consulted appreciate assistance Dr Noriega consulted, appreciate assistance Qualifiers: Malignant neoplasm of brain location: frontal lobe Qualified Codes: C71.1 - Malignant neoplasm of frontal lobe (4) Essential (primary) hypertension Status: Chronic Assessment & Plan: BP very elevated Will add nitropaste Goal to keep SBP <140 (5) History of lung cancer Status: Chronic Assessment & Plan: underwent treatment with Dr Muhammad (6) Prophylactic measure Assessment & Plan: SCDs only NPO NS at 75ml/hr Clinical Quality Measures DVT/VTE Risk/Contraindication: Risk Factor Score Per Nursin RFS Level Per Nursing on Admit: 4+=Very High Copy Copies To 1: ALEXIS JACKSON KATELYN M MD June 12, 2017 10:10 am
[2017-06-12] MEDS ORDERED: PANT40TA2 PO (10:50)
[2017-06-12] MEDS ORDERED: HYDR-3820 PO (10:50)
[2017-06-12] MEDS ORDERED: LEVO50TA6 PO ×2 (10:50→14:47)
[2017-06-12] MEDS ORDERED: LISI40TA PO (10:50)
--- NOTE | 2017-06-12 11:07 | Diagnostic Imaging Report ---
PROCEDURE: CT head without contrast. TECHNIQUE: Multiple contiguous axial images were obtained through the brain without the use of intravenous contrast. INDICATION: Fall and altered mental status. Comparison is made with recent head CT from 06/07/2017 and MRI brain 06/07/2017. The ventricular size is stable. Large mass with associated vasogenic edema in the left frontal lobe is again noted. There continues to be mass effect on the left lateral ventricle with shift of the midline left to right. Small focus of hyperdensity along the superior aspect of the mass is seen consistent with minimal hemorrhage. No new area of hemorrhage is seen. There is significant periventricular hypodensity noted. IMPRESSION: Stable CT of the brain when compared with examination from 5 days earlier again demonstrating a large left frontal lobe mass with midline shift left to right. Minimal parenchymal hemorrhage is present as well. Dictated by: Dictated on workstation # [id number]
[2017-06-12] MEDS ORDERED: DEXA4TAB PO (11:10)
[2017-06-12] MEDS ORDERED: NITROGLYCERIN 2% OINT 1 GM UNIT DOSE PACKET TOP SCH (12:00)
[2017-06-12] MEDS ORDERED: PROMETHAZINE INJ 25 MG/ML (PHENERGAN) AMP IVP PRN (14:45)
[2017-06-12] MEDS ORDERED: NS 250 ML (IVPB) BAG IV ONE (16:00)
[2017-06-12] MEDS ORDERED: IOHEXOL 350 MG/ML 100 ML (OMNIPAQUE 350) VIAL IV ONE (16:00)
--- NOTE | 2017-06-12 16:07 | Consultation ---
History of Present Illness History of Present Illness Patient Consulted On(pam/time) 06/12/17 15:56 Date Seen by Provider: June 12, 2017 Time Seen by Provider: 15:30 Reason for Visit: Lung cancer brain lesion History of Present Illness Ms. Phillips is 77 year old white female previous patient of Dr Muhammad and I saw her last time in 01/2017 and supposed to see her next week for f/u. She presented to her PCP Dr. Graf for unstable gait and falling at home. MRI of the head showed right frontal lobe large 7cm lesion with surrounding edema. She was supposed to start Decadron PO but did not get the medication. She presented to ER last night with intractable nausea and vomiting. ER started her IV Decadron and Zofran. She has h/o synchronous lung cancer with two different histology. See below for details. She had clear CXR 10/2016 and was NOT interested in CT scan last year since she was doing well. PMH: 1. 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 2. 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 3. Status Post RUL and RML Lobectomies on 02/09/16; all margins and lymph nodes were negative., Done by Dr. Tariq Noriega, at [facility] in [facility] 4. Preoperative PET scan showed both lesions as well as a precarinal lymph node with a SUV of 2.5, mildly hypermetabolic but no distant metastases or other suspicious areas. Her last postoperative management of 2 separate/synchronous right lung tumors with distinctive histologies treated as described above. She tripped to her cat and fell and broke her left shoulder and hip. She was hospitalized to ortho service and discharged today with brace and wheel chair. She had clear chest Xray on this admission. Pt is not interested in CT scan follow up at this point. She had a f/u with surgeon in [place] after her lobectomy surgery and was told everything was fine. Allergies and Home Medications Allergies Coded Allergies: valsartan (Verified Allergy, Intermediate, HIVES, 02/01/15) Sulfa (Sulfonamide Antibiotics) (Verified Allergy, Unknown, 04/15/08) prochlorperazine (Verified Allergy, Unknown, 04/15/08) Home Medications Dexamethasone 4 Mg Tablet, 8 MG PO TID, (Reported) #60 TABLETS FILLED 06-11-17 (NOT YET PICKED UP) TAKES 2 (4MG) TABLETS Hydrochlorothiazide 25 Mg Tablet, 25 MG PO DAILY, (Reported) Hydrocodone/Acetaminophen 1 Each Tablet, 1 TAB PO Q6H PRN for PAIN-MODERATE, ( Reported) Levothyroxine Sodium 50 Mcg Tablet, 25 MCG PO DAILY, (Reported) TAKES 1/2 (50MCG) TABLET LAST FILLED #90 02-08-17 Lisinopril 40 Mg Tablet, 40 MG PO DAILY, (Reported) [place] 3 Polyunsat Fatty Acids 1,000 Mg Cap, 2,000 MG PO BID, (Reported) TAKES 2 (1000MG) CAPSULES Temazepam 15 Mg Capsule, 15 MG PO HS, (Reported) Vit C/E/Zn/Coppr/Lutein/Zeaxan 1 Each Capsule, 1 CAP PO BID, (Reported) Vitamin B Complex 1 Each Capsule, 1 CAP PO DAILY, (Reported) Patient Home Medication List Home Medication List Reviewed: Yes Past Mvjeatn-Kbintf-Nigmsa Hx Past Med/Social Hx: Reviewed Nursing Past Med/Soc Hx Patient Social History Alcohol Use: Denies Use Recreational Drug Use: No Smoking Status: Former Smoker Type Used: Cigarettes 2nd Hand Smoke Exposure: No Recent Foreign Travel: No Contact w/Someone Who Travel: No Recent Infectious Disease Expo: No Recent Hopitalizations: No Physical Abuse: No Sexual Abuse: No Mistreated: No Fear: No Immunizations Up To Date Tetanus Booster (TDap): Unknown Date of Pneumonia Vaccine: July 01, 2015 Date of Influenza Vaccine: Jan 18, 2017 Seasonal Allergies Seasonal Allergies: No Past Medical History Surgeries: Yes (THUMB AMPUTATED, TOTAL HIPS BILATERAL, BACK SURGRY X4, skin cancer ) Joint Replacement, Lobectomy, Orthopedic Respiratory: No (LUNG CA -lobectomy upper/middle) Currently Using CPAP: No Currently Using BIPAP: No Cardiac: Yes (ATRIAL SEPTAL DEFECT-SMALL, MVP) Hypertension Neurological: No Stroke Reproductive Disorders: No Sexually Transmitted Disease: No HIV/AIDS: No Genitourinary: No Gastrointestinal: Yes Gastroesophageal Reflux Musculoskeletal: Yes (Zack TH; back surg x 3) Degenerate Disk Disease, Arthritis, Chronic Back Pain, Fractures Endocrine: Yes (controlled DM with diet) Hypothyroidsim HEENT: No Loss of Vision: Denies Hearing Impairment: Denies Cancer: Yes (SQUAMOUS CELL THUMB, LIP, SHOULDER) Brain, Lung Did You Recieve Any Treatments: Yes What Type of Treatment Did You: Chemotherapy, Surgical Intervention Psychosocial: No Nursing Suicide Risk Score: 1 Integumentary: No Blood Disorders: Yes (FORM OF ANEMIA) Adverse Reaction/Blood Tranf: No (HAS HAD TRANSFUSION WITHOUT REACTION) Family Medical History Reviewed Nursing Family Hx Patient reports no known family medical history. Cancer Review of Systems-General Constitutional: weakness EENTM: blurred vision Respiratory: no symptoms reported Cardiovascular: no symptoms reported Gastrointestinal: heartburn, nausea, vomiting Musculoskeletal: muscle weakness Physical Exam-General Problems Physical Exam Vital Signs Vital Signs - First Documented 06/11/17 22:36 Temp 98.0 Pulse 121 Resp 18 B/P (MAP) 196/130 (152) Pulse Ox 96 O2 Delivery Room Air Capillary Refill : Less Than 3 Seconds General Appearance: no apparent distress HEENT: PERRL/EOMI Neck: non-tender, supple Respiratory: lungs clear, no respiratory distress, no accessory muscle use Cardiovascular: regular rate, rhythm Gastrointestinal: non tender, soft Extremities: no pedal edema, no calf tenderness Neurologic/Psychiatric: alert, abnormal gait Assessment/Plan Assessment/Plan Admission Diagnosis/Plan IMP; 1. Right frontal lobe large lesion with surrounding edema, mets vs primary brain tumor? 2. Intractable nausea vomiting due to #1, better since the IV Decadron and Zofran 3. H/o two synchronous right lung cancer, s/p lobectomy 01/2016. 1). Stage 1A RUL Adenocarcinoma (poorly differentiated sold predominant histology) Lung [id number] a. Status Post RUL and RML Lobectomies on 02/09/16; 2). Stage 1A RML mucinous Adenocarcinoma, [id number] Post RML lobectomy as noted above; The treatment discussion 01/2016 was: NCCN guidelines do not recommend any adjuvant chemotherapy for this stage of disease in patients who have small Stage 1A (less than 3cm) tumors. For larger Stage IB ([id number]) and for Stage II tumors, there is a 5% overall survival benefit to cisplatin based doublet adjuvant chemotherapy. However for small Stage 1 tumors such as those present in this lady, there is no evidence of benefit from adjuvant chemotherapy. Current practice guidelines recommend close monitoring of these patients after resection. 3). Recommended monitoring shedule/ surveillance strategies include history, physical exam (every 3-6 months) and chest CT scans every 6 months for the first 2 years then annually thereafter. However, pt wants to have CXR follow up every 6 months if any problems on CXR, then CT scan. 4. Hypertension- Improved with current doses of Amlodipine, lisinopril and HCTZ 5. Former Heavy Cigarette Smoker for 40 years up to 1-1/2 pack/day; Stopped when diagnosed with lung cancer; 6. Anemia, Beta Thallasemia Minor---with recent increase in fatigue and drop in hemoglobin-- iron studies are normal; microcytosis arising from her beta thalassemia minor; 7. Hypothyroidism-on levothyroxine; 8. GERD 9. Degenerative Joint Disease- S/P bilateral hip replacement; 10. 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 11. h/o left thumb cancer, s/p resection many years ago. Plan: 1. CT of the chest, abd/pelvis with contrast. If no any other lesions outside of the brain, will transfer to [facility] neurosurgeon for possible resection and tissue diagnosis. If positive for other lesions, then biopsy. If pt will not be surgical candidate, then we will have to do the cranial radiation. 2. Rad/Onc consultation to see which is a better option: surgery vs radiation. 3. Continue IV Decadron 4mg q 6hrs and Zofran PRN 4. Fall precaution 5. I have discussed with patient and her family about the plans. 6. Stop all anticoagulation at this point including ASA. 7. Control BP to reduce the risk of intracranial bleeding 8. She may need Keppra but I will wait for the N/V under good control. Clinical Quality Measures DVT/VTE Risk/Contraindication: Risk Factor Score Per Nursin RFS Level Per Nursing on Admit: 4+=Very High YVON AGOSTO MD June 12, 2017 16:07
--- NOTE | 2017-06-12 16:24 | History & Physicial ---
History of Present Illness History of Present Illness Reason for visit/HPI Brain metastasis, solitary lesion left frontal lobe Non-small cell lung RUL and RML primary *77 y/o white female with a past medical history significant for Stage IA RUL, RML Non-small cell lung cancer. She underwent bilobectomies on 02/09/16. Procedure performed by Dr. Sam Noriega. All margins and lymph nodes were negative. No distant mets on pre-op PET. *Patient has followed with med onc, Dr. Muhammad, now Dr. Agosto. Per NCCN Guidelines no adjuvant chemo recommended. Following closely with surveillance. CT C/A/P 10/28 showed no evidence of recurrence or metastatic disease. *06/07/[address] head was ordered by PCP Dr. Graf due to falls and dizziness -Impression: Large amount of edema is present in the left frontal lobe with mass effect and midline shift left to right. Features are concerning for underlying brain mass with surrounding vasogenic edema. There also appears to be some minimal acute hemorrhage present in the left frontal lobe. *06/07/17 MRI brain w/wo: -Impression: Large ring-enhancing mass with central necrosis involving the left frontal lobe, corresponding with the CT abnormality. There is a large amount of surrounding vasogenic edema with mass effect on the the left frontal horn and midline shift left to right. No other enhancing lesions are seen. No definite acute intracranial hemorrhage is identified. *The patient/family were notified by Dr. Graf. Decadron script was called in to start. *06/11/17 She presented to [facility] ED with intractable nausea with vomiting. Family reports she has been falling for the past couple of months and becoming more forgetful.She had not started the Decadron that was ordered. *Decadron 10 mg IV given .Dr. Agosto notified. Admitted for further evaluation and treatment. 06/12/17 CT head wo: -Impression: Stable CT of the brain when compared with examination from 5 days earlier. Again demonstrating a large left frontal lobe mass with midline shift left to right. Minimal parenchymal hemorrhage is present as well. A radiation oncology consult was requested for evaluation and consideration of brain radiation; thus my visit with the patient today. Date of Admission June 11, 2017 at 23:42 Date Seen by Provider: June 12, 2017 Time Seen by Provider: 15:30 I consulted on this patient on 06/12/17 15:30 Attending Physician Joseph Najera MD Admitting Physician Jeremy Graf DO Consult Prateek Vila MD Radiation Oncology Allergies and Home Medications Allergies Coded Allergies: valsartan (Verified Allergy, Intermediate, HIVES, 02/01/15) Sulfa (Sulfonamide Antibiotics) (Verified Allergy, Unknown, 04/15/08) prochlorperazine (Verified Allergy, Unknown, 04/15/08) Home Medications Dexamethasone 4 Mg Tablet, 8 MG PO TID, (Reported) #60 TABLETS FILLED 06-11-17 (NOT YET PICKED UP) TAKES 2 (4MG) TABLETS Hydrochlorothiazide 25 Mg Tablet, 25 MG PO DAILY, (Reported) Hydrocodone/Acetaminophen 1 Each Tablet, 1 TAB PO Q6H PRN for PAIN-MODERATE, ( Reported) Levothyroxine Sodium 50 Mcg Tablet, 25 MCG PO DAILY, (Reported) TAKES 1/2 (50MCG) TABLET LAST FILLED #90 02-08-17 Lisinopril 40 Mg Tablet, 40 MG PO DAILY, (Reported) [place] 3 Polyunsat Fatty Acids 1,000 Mg Cap, 2,000 MG PO BID, (Reported) TAKES 2 (1000MG) CAPSULES Temazepam 15 Mg Capsule, 15 MG PO HS, (Reported) Vit C/E/Zn/Coppr/Lutein/Zeaxan 1 Each Capsule, 1 CAP PO BID, (Reported) Vitamin B Complex 1 Each Capsule, 1 CAP PO DAILY, (Reported) Patient Home Medication List Home Medication List Reviewed: Yes Past Effwjme-Csyymr-Gtuhcv Hx Patient Social History Marrital Status: Number of Children: 2 Number of living children: 2 Employed/Student: retired (registered nurse) Alcohol Use: Denies Use Recreational Drug Use: No Smoking Status: Former Smoker Type Used: Cigarettes 2nd Hand Smoke Exposure: No Recent Foreign Travel: No Contact w/other who traveled: No Recent Hopitalizations: No Recent Infectious Disease Expo: No Immunizations Up To Date Tetanus Booster (TDap): Unknown Date of Pneumonia Vaccine: July 01, 2015 Date of Influenza Vaccine: Jan 18, 2017 Seasonal Allergies Seasonal Allergies: No Surgeries Yes (THUMB AMPUTATED, TOTAL HIPS BILATERAL, BACK SURGRY X4, skin cancer ) Joint Replacement, Lobectomy, Orthopedic Respiratory No (LUNG CA -lobectomy upper/middle) Currently Using CPAP: No Currently Using BIPAP: No Cardiovascular Yes (ATRIAL SEPTAL DEFECT-SMALL, MVP) Hypertension Neurological No Stroke Reproductive System Hx Reproductive Disorders: No Sexually Transmitted Disease: No HIV/AIDS: No Genitourinary No Gastrointestinal Yes Gastroesophageal Reflux Musculoskeletal Yes (Zack TH; back surg x 3) Degenerate Disk Disease, Arthritis, Chronic Back Pain, Fractures Endocrine History of Endocrine Disorders: Yes (controlled DM with diet) Endocrine Disorders: Hypothyroidsim HEENT History of HEENT Disorders: No Loss of Vision: Denies Hearing Impairment: Denies Cancer Yes (SQUAMOUS CELL THUMB, LIP, SHOULDER) Brain, Lung Did You Recieve Any Treatments: Yes Type of Treatment: Chemotherapy, Surgical Intervention Psychosocial History of Psychiatric Problem: No Integumentary History of Skin or Integumenta: No Blood Transfusions History of Blood Disorders: Yes (FORM OF ANEMIA) Adverse Reaction to a Blood Tr: No (HAS HAD TRANSFUSION WITHOUT REACTION) Family Medical History Significant Family History: Cancer Family Hx: Patient reports no known family medical history. Constitutional: dizziness, weakness, weight loss EENTM: no symptoms reported Cardiovascular: no symptoms reported Gastrointestinal: nausea (better with decadron), vomiting Genitourinary: no symptoms reported : No Skin: no symptoms reported Psychiatric/Neurological: No Symptoms Reported Physical Exam Vital Signs Vital Signs - First Documented 06/11/17 22:36 Temp 98.0 Pulse 121 Resp 18 B/P (MAP) 196/130 (152) Pulse Ox 96 O2 Delivery Room Air Capillary Refill : Less Than 3 Seconds General Appearance: No Apparent Distress, WD/WN, Other (family at bedside; daughter, granddaughter and niece) Eyes: Bilateral Eye PERRL Neck: Full Range of Motion Respiratory: No Respiratory Distress Neurologic/Psychiatric: Alert (Oriented to place and person; answering questions inaccurately according to family), Normal Mood/Affect, Other (visited with in hospital bed) Skin: Normal Color, Warm/Dry Assessment/Plan Assessment and Plan -Solitary 6.6 x 5.0 x 4.7 cm left frontal brain metastasis with midline shift left to right -Symptoms improved (N/V) with Decadron - still some confusion -History of Stage IA RUL and RML NSL lung cancer 2016 s/p bilobectomies PLAN: *Discussed case with medical oncologist, Dr. Agosto. *Recommended further staging scans of CT C/A/P. *If no other sites of metastatic disease then a neurosurgical consult at would be appropriate for evaluation and consideration of surgical removal or debulking of the large left frontal brain mass. A course of whole brain xrt would be to follow. *If the patient has other sites of metastatic disease then I would recommend a 2 - 2/1/2 week course of WBI (30 Gy / 10 fxs) w/ possible 3 fx boost to the large solitary left frontal lesion. *I reviewed this information with the patient and family in the room. *They stated understanding the information and recommendations. *They are in agreement to this plan. *Dr. Agosto to keep me informed of the upcoming scan findings. Problems: (1) Altered mental status Status: Acute Qualifiers: Qualified Codes: R40.4 - Transient alteration of awareness Assessment & Plan: I discussed with Dr Graf- normally alert and oriented though he saw her yesterday and she was confused though not markedly so He did obtain history of a fall from family that they believe occurred yesterday She is acutely altered today Will get stat CT Head given findings of edema, midline shift, and minimal acute hemorrhage (2) Intractable nausea and vomiting Status: Acute Qualifiers: Qualified Codes: R11.2 - Nausea with vomiting, unspecified Assessment & Plan: Continue Zofran and Decadron as symptoms improving (3) Brain cancer Status: Acute Qualifiers: Qualified Codes: C71.1 - Malignant neoplasm of frontal lobe Assessment & Plan: Unsure if new primary or metastatic disease Dr Agosto consulted appreciate assistance Dr Noriega consulted, appreciate assistance (4) Essential (primary) hypertension Status: Chronic Assessment & Plan: BP very elevated Will add nitropaste Goal to keep SBP <140 (5) History of lung cancer Status: Chronic Assessment & Plan: underwent treatment with Dr Muhammad (6) Prophylactic measure Assessment & Plan: SCDs only NPO NS at 75ml/hr Admission Diagnosis Admission Status: Inpatient Order (span 2 midnights) (further testing required) Reason for Inpatient Admission: Brain metastasis from NSC lung cancer Clinical Quality Measures DVT/VTE Risk/Contraindication: Risk Factor Score Per Nursin RFS Level Per Nursing on Admit: 4+=Very High Copy Copies To 1: YVON AGOSTO MD Copies To 2: JEREMY GRAF DUANE E MD June 12, 2017 16:24
--- NOTE | 2017-06-12 16:44 | Diagnostic Imaging Report ---
PROCEDURE: CT chest with contrast, CT abdomen and pelvis with and without contrast. TECHNIQUE: Pre and post intravenous contrast axial imaging of the abdomen and pelvis and post contrast axial imaging of the chest were performed. INDICATION: Metastatic lung cancer. COMPARISON: Comparison is made to study of 06/19/2016. CT CHEST: There has been development of an approximately 1.8 cm node in the azygos region of the right mediastinum. Additional smaller mediastinal lymph nodes are seen in the paratracheal distribution. Small nodules are again noted in the left lobe of thyroid gland without significant change. There is no evidence of focal consolidation or lung mass. No significant pleural or pericardial fluid is identified. IMPRESSION: 1. Development of 1.8 cm azygos lymph node. In patient with known lung cancer, this is highly suspicious for metastatic disease. Consideration could be given to PET scan for assessment. 2. Left lobe thyroid gland nodules, aortic and coronary atherosclerosis as well as old right rib fractures are stable without evidence of adverse change. CT ABDOMEN AND PELVIS: There is mild low-density throughout the liver without focal lesion identified. No pancreatic, splenic or adrenal gland lesion is seen. There is excretion of contrast in both kidneys. No free fluid is seen in the abdomen or pelvis. There is no evidence of pathologic adenopathy. Partially opacified urinary bladder is unremarkable although artifact from metallic hip restorations does limit evaluation of the pelvis. IMPRESSION: No significant change is seen in the CT appearance of the abdomen and pelvis. No acute abnormality or definite metastatic disease is appreciated. Dictated by: Dictated on workstation # [id number]
[2017-06-12] MEDS: NITROGLYCERIN 2% OINT 1 GM UNIT DOSE PACKET TOP PRN (22:29)
[2017-06-13 03:41] VITALS: BP 159/83
[2017-06-13] MEDS: DEXAMETHASONE 4 MG/ML SDV (DECADRON) IV SCH ×2 (05:06→11:50)
[2017-06-13] MEDS: NS IV 1000 ML 1,000 ML IV SCH (05:07)
[2017-06-13] MEDS: CATHETER FLUSH 10 ML SYR IV SCH ×2 (05:12→14:07)
[2017-06-13 06:27] LABS: BASOPHILS % (AUTO) 0 % (0-10); EOSINOPHILS % (AUTO) 0 % (0-10); HEMATOCRIT 32 % (35-52); HEMOGLOBIN 10.8 G/DL (11.5-16.0); LYMPHOCYTES # (AUTO) 0.5 X 10^3 (1.0-4.0); LYMPHOCYTES % (AUTO) 5 % (12-44); MEAN CORPUSCULAR HEMOGLOBIN 24 PG (25-34); MEAN CORPUSCULAR HGB CONC 34 G/DL (32-36); MEAN CORPUSCULAR VOLUME 70 FL (80-99); MEAN PLATELET VOLUME 11.1 FL (7.4-10.4); MONOCYTES # (AUTO) 0.4 X 10^3 (0.0-1.0); MONOCYTES % (AUTO) 4 % (0-12); NEUTROPHILS # (AUTO) 9.7 X 10^3 (1.8-7.8); NEUTROPHILS % (AUTO) 91 % (42-75); PLATELET COUNT 307 10^3/uL (130-400); RED BLOOD COUNT 4.58 10^6/uL (4.35-5.85); RED CELL DISTRIBUTION WIDTH 14.8 % (10.0-14.5); WHITE BLOOD COUNT 10.7 10^3/uL (4.3-11.0)
[2017-06-13 06:59] LABS: BUN/CREATININE RATIO 20; CALCIUM 9.2 MG/DL (8.5-10.1); CARBON DIOXIDE 23 MMOL/L (21-32); CHLORIDE 105 MMOL/L (98-107); CREATININE SERUM 0.59 MG/DL (0.60-1.30); GFR ESTIMATED > 60; GLUCOSE 170 MG/DL (70-105); POTASSIUM 3.5 MMOL/L (3.6-5.0); SODIUM 139 MMOL/L (135-145)
[2017-06-13 10:20] VITALS: BP 152/72
[2017-06-13 12:00] VITALS: BP 176/81
--- NOTE | 2017-06-13 13:53 | Physician Progress Note ---
Progress Note Assessment/Plan Time Seen by Provider: 13:50 Events since last exam Pt is better today. No more nausea vomiting since last night. CT of the chest, abd and pelvis showed a new 1.8cm lymph node azygos region of the right mediastinum in the chest. The rest CT unremarkable. I have spoken to [facility] for transfer pt to there for the single lesion resection. If not, at least to get a tissue biopsy for diagnosis. I also spoke to her daughter Jocelyne and gave her the update. She agrees to transfer patient by ambulance. Pt will be transfer to [facility] neuro-ICU under Dr. Chakraborty. Assessment/Plan IMP; 1. Right frontal lobe large lesion with surrounding edema, mets vs primary brain tumor? Need tissue diagnosis. 2. Intractable nausea vomiting due to #1, better since the IV Decadron and Zofran 3. H/o two synchronous right lung cancer, s/p lobectomy 01/2016. 1). Stage 1A RUL Adenocarcinoma (poorly differentiated sold predominant histology) Lung [id number] a. Status Post RUL and RML Lobectomies on 02/09/16; 2). Stage 1A RML mucinous Adenocarcinoma, [id number] Post RML lobectomy as noted above; The treatment discussion 01/2016 was: NCCN guidelines do not recommend any adjuvant chemotherapy for this stage of disease in patients who have small Stage 1A (less than 3cm) tumors. For larger Stage IB ([id number]) and for Stage II tumors, there is a 5% overall survival benefit to cisplatin based doublet adjuvant chemotherapy. However for small Stage 1 tumors such as those present in this lady, there is no evidence of benefit from adjuvant chemotherapy. Current practice guidelines recommend close monitoring of these patients after resection. 3). Recommended monitoring shedule/ surveillance strategies include history, physical exam (every 3-6 months) and chest CT scans every 6 months for the first 2 years then annually thereafter. However, pt wants to have CXR follow up every 6 months if any problems on CXR, then CT scan. 4. Hypertension- Improved with current doses of Amlodipine, lisinopril and HCTZ 5. Former Heavy Cigarette Smoker for 40 years up to 1-1/2 pack/day; Stopped when diagnosed with lung cancer; 6. Anemia, Beta Thallasemia Minor---with recent increase in fatigue and drop in hemoglobin-- iron studies are normal; microcytosis arising from her beta thalassemia minor; 7. Hypothyroidism-on levothyroxine; 8. GERD 9. Degenerative Joint Disease- S/P bilateral hip replacement; 10. 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 11. h/o left thumb cancer, s/p resection many years ago. Plan: 1. CT of the chest, abd/pelvis with contrast. If no any other lesions outside of the brain, will transfer to [facility] neurosurgeon for possible resection and tissue diagnosis. If positive for other lesions, then biopsy. If pt will not be surgical candidate, we will have to do the cranial radiation. Now CT showed 1.8cm node in the mediastinum, the rest CT were unremarkable. I am not sure the significant of this single 1.8 cm node and it will be difficulty for accurate biopsy. I still think to resect or biopsy brain lesion is the best choice. 2. Rad/Onc consultation done here. Agree to [facility] neurosurgery first. 3. Continue IV Decadron 4mg q 6hrs and Zofran PRN 4. Fall precaution 5. I have discussed with patient and her family about the plans. 6. Stop all anticoagulation at this point including ASA. 7. Control BP to reduce the risk of intracranial bleeding 8. She may need Keppra but I will let [facility] decide. So she has no seizure activity and she is better since the Decadron. Vitals Last set of Vitals Signs Vital Signs Date Time Temp Pulse Resp B/P (MAP) Pulse Ox O2 Delivery O2 Flow Rate FiO2 06/13/17 10:20 98.0 67 18 152/72 (98) 96 Room Air I&O I&O Intake and Output 06/13/17 00:00 Intake Total 2980 ml Output Total 100 ml Balance 2880 ml Intake Oral 980 ml IV Total 2000 ml Output Urine Total 100 ml # Voids 5 Labs Laboratory Tests 06/13/17 05:49: White Blood Count 10.7, Red Blood Count 4.58, Hemoglobin 10.8L, Hematocrit 32L, Mean Corpuscular Volume 70L, Mean Corpuscular Hemoglobin 24L, Mean Corpuscular Hemoglobin Concent 34, Red Cell Distribution Width 14.8H, Platelet Count 307, Mean Platelet Volume 11.1H, Neutrophils (%) (Auto) 91H, Lymphocytes (%) (Auto) 5L, Monocytes (%) (Auto) 4, Eosinophils (%) (Auto) 0, Basophils (%) (Auto) 0, Neutrophils # (Auto) 9.7H, Lymphocytes # (Auto) 0.5L, Monocytes # (Auto) 0.4, Eosinophils # (Auto) 0.0, Basophils # (Auto) 0.0, Sodium Level 139, Potassium Level 3.5L, Chloride Level 105, Carbon Dioxide Level 23, Anion Gap 11, Blood Urea Nitrogen 12, Creatinine 0.59L, Estimat Glomerular Filtration Rate > 60, BUN /Creatinine Ratio 20, Glucose Level 170H, Calcium Level 9.2 Clinical Quality Measures DVT/VTE Risk/Contraindication: Risk Factor Score Per Nursin RFS Level Per Nursing on Admit: 4+=Very High YVON AGOSTO MD June 13, 2017 13:53
--- NOTE | 2017-06-13 14:03 | Discharge Summary-Hospitalist ---
Diagnosis/Chief Complaint Date of Admission June 11, 2017 at 11:42 pm Date of Discharge Discharge Date: June 13, 2017 Admission Diagnosis brain tumor and intractable nausea and vomiting Discharge Diagnosis (1) Brain cancer Status: Acute Assessment & Plan: Unsure if new primary or metastatic disease Dr Rueda consulted and has arranged from transfer to [facility] for neurosurgery evaluation and potential operative Dr Noriega consulted, appreciate assistance (2) Altered mental status Status: Acute Assessment & Plan: Much improved from yesterday CT Stable from 06/07 Much nearing to baseline (3) Intractable nausea and vomiting Status: Resolved Assessment & Plan: Continue Zofran and Decadron as symptoms improving (4) Essential (primary) hypertension Status: Chronic Assessment & Plan: BP Improved today (5) History of lung cancer Status: Chronic Assessment & Plan: underwent treatment with Dr Muhammad (6) Prophylactic measure Assessment & Plan: SCDs only NPO NS at 75ml/hr Discharge Summary Discharge Physical Exam Allergies: Coded Allergies: valsartan (Verified Allergy, Intermediate, HIVES, 02/01/15) Sulfa (Sulfonamide Antibiotics) (Verified Allergy, Unknown, 04/15/08) prochlorperazine (Verified Allergy, Unknown, 04/15/08) Vitals & I&Os Vital Signs Date Time Temp Pulse Resp B/P (MAP) Pulse Ox O2 Delivery O2 Flow Rate FiO2 06/13/17 12:00 96.1 70 18 176/81 (112) 95 Room Air General Appearance: Alert, Oriented X3 Respiratory: Clear to Auscultation Cardiovascular: Regular Rate Hospital Course Pt presented to intractable nausea and vomiting due to large brain tumor diagnosed on 06/07. Repeat CT Head on 06/12 showed stable tumor and edema with minimal hemorrhage from imaging on 06/04. CT chest/abd/pelvis revealed a solitary lymph node concerning for mets. Dr Leon discussed this with family and plan was made for transfer for neurosurgical evaluation of tumor to deduce if new primary cancer or mets from previous lung cancer. Dr Leon arranged doctor to doctor transfer with Dr Chakraborty. EMS was called and she was transferred via EMS for neurosurgery evaluation. Labs (last 24 hrs) Patient resulted labs reviewed. Imaging: Reviewed Imaging Films, Reviewed Imaging Report Discussion & Recommendations Discharge Planning: >30 minutes discharge planning Discharge Home Medications: Active Scripts Active Reported Levothyroxine Sodium 50 Mcg Tablet 25 Mcg PO DAILY TAKES 1/2 (50MCG) TABLET LAST FILLED #90 12-29-17 Dexamethasone 4 Mg Tablet 8 Mg PO TID #60 TABLETS FILLED 06-11-17 (NOT YET PICKED UP) TAKES 2 (4MG) TABLETS Hydrocodon-Acetaminophn 10-325 (Hydrocodone/Acetaminophen) 1 Each Tablet 1 Tab PO Q6H PRN Preservision Areds 2 Softgel (Vit C/E/Zn/Coppr/Lutein/Zeaxan) 1 Each Capsule 1 Cap PO BID Vitamin B Complex 1 Each Capsule 1 Cap PO DAILY Fish Oil 1,000 mg Capsule ([place] 3 Polyunsat Fatty Acids) 1,000 Mg Cap 2,000 Mg PO BID TAKES 2 (1000MG) CAPSULES Temazepam 15 Mg Capsule 15 Mg PO HS Hydrochlorothiazide 25 Mg Tablet 25 Mg PO DAILY Instructions to patient/family Please see electronic discharge instructions given to patient. Clinical Quality Measures DVT/VTE Risk/Contraindication: Risk Factor Score Per Nursin RFS Level Per Nursing on Admit: 4+=Very High Copy Copies To 1: ALEXIS JACKSON DO Problem Qualifiers (1) Brain cancer: Malignant neoplasm of brain location: frontal lobe Qualified Codes: C71.1 - Malignant neoplasm of frontal lobe (2) Altered mental status: Altered mental status type: transient alteration of awareness Qualified Codes : R40.4 - Transient alteration of awareness (3) Intractable nausea and vomiting: Vomiting type: unspecified Qualified Codes: R11.2 - Nausea with vomiting, unspecified FARHEEN PATINO MD June 13, 2017 14:02
[2017-06-13] MEDS: NITROGLYCERIN 2% OINT 1 GM UNIT DOSE PACKET TOP PRN (15:16)
== END 2017-06-13 16:45 | disposition short-term general hospital (02) | DRG 54 ==
LOC: EDUNIT# 22:32 → ER 22:34 → 4TH 23:42 → UNDOADMIN 06-12
PROVIDERS: ADMIT Internal Medicine; ATTEND Internal Medicine
DX: D49.6 Neoplasm of unspecified behavior of brain (principal); G93.6 Cerebral edema; R11.2 Nausea with vomiting, unspecified; I10 Essential (primary) hypertension; E11.9 Type 2 diabetes mellitus without complications; Q21.1 Atrial septal defect; I34.1 Nonrheumatic mitral (valve) prolapse; R40.4 Transient alteration of awareness; E03.9 Hypothyroidism, unspecified; K21.9 Gastro-esophageal reflux disease without esophagitis; M19.91 Primary osteoarthritis, unspecified site; M54.9 Dorsalgia, unspecified; D64.9 Anemia, unspecified; Z85.118 Personal history of other malignant neoplasm of bronchus and lung; Z87.891 Personal history of nicotine dependence; Z96.643 Presence of artificial hip joint, bilateral; Z90.2 Acquired absence of lung [part of]; Z86.73 Personal history of transient ischemic attack (TIA), and cerebral infarction without residual deficits
CPT/HCPCS: 36415; 70450; 71260; 74178; 80048; 80053; 85025; 96361; 96374; 96375

== ENCOUNTER 2017-06-20 12:15 | Inpatient (IN) | payer MEDICARE, OTHER ==
[~2017-06-20] VITALS: Ht 160 cm; Wt 60.3 kg
[~2017-06-20 12:15] MED LIST changes: +DEXA4TAB PO; +PANT40TA2 PO
[2017-06-20] MEDS ORDERED: HYDROcodone/APAP 5 MG/325 MG (LORTAB) TAB PO PRN (16:45)
[2017-06-20] MEDS ORDERED: TEMAZEPAM 7.5 MG CAP (RESTORIL) PO PRN (16:45)
[2017-06-20] MEDS ORDERED: ACETAMINOPHEN 325 MG TABLET/CAPLET (TYLENOL) PO PRN (16:45)
--- OUTSIDE RECORDS SUMMARY | 2017-06-20 16:47 | XMS REPORT | Continuity of Care Document ---
Author Author [employer] Organization [facility] Address Unknown Phone Unavailable Care Team Providers Care Perlite Grinder Name Role Phone [employer] Unavailable Unavailable Problems Medications Allergies, Adverse Reactions, Alerts Immunizations Results Vital Signs Encounters Location Location Details Encounter Type Encounter Number Reason For Visit Attending Provider ADM Date DC Date Status Source O 06/12/2017 06/12/2017 Active [facility] INPATIENT [id number] [place]ER[place] MARIE 06/13/20172017 Active [facility] Procedures Plan of Care Social History Assessment and Plan Family History Advance Directives Functional Status
--- OUTSIDE RECORDS SUMMARY | 2017-06-20 16:48 | XMS REPORT | Clinical Summary ---
Author Author [facility] Organization [facility] Address Unknown Phone Unavailable Care Team Providers Care Legal Operations Manager Name Role Phone Jeremy Graf MD PCP Source Comments Some departments are not documenting in the electronic medical record. If you do not see the information that you expected, contact Release of Information in the Health Information Management department at [phone] for further assistance in locating additional records.[facility] Allergies Active Allergy Reactions Severity Noted Date Comments Prochlorperazine UNKNOWN Low 06/13/2017 Edisylate Losartan UNKNOWN Low 06/13/2017 Sulfa (Sulfonamide UNKNOWN Low 06/13/2017 Antibiotics) Current Medications Prescription Sig. Disp. Refills Start End Date Status Date hydroCHLOROthiazide Take 25 mg by mouth every Active (HYDRODIURIL) 25 mg morning. tablet lisinopril (PRINIVIL; Take 40 mg by mouth Active ZESTRIL) 20 mg tablet daily. acetaminophen (TYLENOL) Take 2 tablets by mouth 0 06/21/19 Active 325 mg tablet every 4 hours as needed. 18 levETIRAcetam (KEPPRA) Take 1 tablet by mouth 28 tablet 0 06/21/19 07/05/19 Active 500 mg tablet twice daily for 14 days. 18 18 dexamethasone (DECADRON) Taper schedule: 4 mg 0 06/21/19 Active 4 mg tablet every 8 hours for 4 days, 18 then 4 mg every 12 hours for 4 days, then 2 mg every 12 hours for 4 days, then 2 mg every day for 2 days, then stop heparin (porcine) PF Inject 0.5 mL under the 06/21/19 Active 5,000units/0.5mL skin every 8 hours. DVT 18 injection syringe prophylaxis, continue until mobilizing well docusate (COLACE) 100 mg Take 1 capsule by mouth 180 capsule 3 Active capsule twice daily. 18 senna/docusate Take 1 tablet by mouth 0 06/21/19 Active (SENOKOT-S) 8.6/50 mg twice daily. 18 tablet HYDROcodone/acetaminophen Take 1-2 tablets by mouth 0 06/21/19 Active (NORCO) 5/325 mg tablet every 4 hours as needed 18 Earliest Fill Date: 06/20/17 For pain temazepam (RESTORIL) 7.5 Take 1 capsule by mouth 06/21/19 Active mg capsule at bedtime as needed. 18 temazepam (RESTORIL) 15 Take 15 mg by mouth at 06/21/19 Suspended mg capsule bedtime as needed for 18 Sleep. Active Problems Problem Noted Date Malignant neoplasm of upper lobe of right lung (HCC) 06/19/2017 Severe malnutrition (HCC) 06/18/2017 Headache 06/13/2017 Falls 06/13/2017 Brain tumor (HCC) HTN (hypertension) Hx of cancer of lung Right arm weakness Facial droop Overview: Right CVA (cerebral vascular accident) (HCC) Aphasia Altered mental status Encounters Date Type Specialty Care Team Description 06/18/2017 Office Visit Radiation Therapy Rianna Vazquez MD Brain tumor ( HCC) (Primary Dx); Malignant neoplasm of upper lobe of right lung (HCC) 06/17/2017 Procedure Pass 06/17/2017 Procedure Pass 06/17/2017 Surgery Federico Chakraborty MD CRANIOTOMY FOR LEFT FRONTAL TUMOR RESECTION WITH NAVIGATION 06/14/2017 Anesthesia Angelito Grey, SRNA Event 06/14/2017 Procedure Pass 06/14/2017 Procedure Pass 06/14/2017 Procedure Pass 06/13/2017 Hospital Federico Chakraborty MD Brain tumor (HCC) - Encounter 06/20/2017 06/13/2017 Ancillary Radiology Outpatient, Radiologist Diagnosis unknown Orders 06/12/2017 Hospital Radiology Encounter 06/07/2017 Hospital Radiology Encounter 06/07/2017 Hospital Radiology Encounter from Last 3 Months Family History Medical History Relation Name Comments Cancer-Lung Father Cancer-Lung Paternal Grandfather Relation Name Status Comments Father Paternal Grandfather Social History Tobacco Use Types Packs/Day Years Used Date Former Smoker Cigarettes 2 30 Quit: 12/14/2016 Comments: Long-term smoker; 2 packs per day Alcohol Use Drinks/Week oz/Week Comments No Sex Assigned at Date Recorded Not on file Last Filed Vital Signs Vital Sign Reading Time Taken Blood Pressure 118/59 06/20/2017 11:54 AM CDT Pulse 68 06/20/2017 11:54 AM CDT Temperature 36.9 C (98.5 F) 06/20/2017 11:54 AM CDT Respiratory Rate - - Oxygen Saturation 100% 06/20/2017 11:54 AM CDT Inhaled Oxygen - - Concentration Weight 56.6 kg (124 lb 12.5 oz) 06/13/2017 7:33 PM CDT Height 162.6 cm (5' 4") 06/13/2017 7:33 PM CDT Body Mass Index 21.42 06/13/2017 7:33 PM CDT Plan of Treatment Health Maintenance Due Date Last Done Comments PHYSICAL (COMPREHENSIVE) 1947 EXAM PERTUSSIS VACCINE 1953 TETANUS VACCINE 06/04/1959 BREAST CANCER SCREENING 1982 COLORECTAL CANCER 1992 SCREENING SHINGLES VACCINE 2002 OSTEOPOROSIS SCREENING 06/04/2007 PREVNAR/PNEUMOVAX (#1) 06/04/2007 INFLUENZA VACCINE 11/11/2017 01/18/2017, 01/27/2009 Implants Implanted Type Area Gold Leaf Layer Device Expiration Model / Identifier Date Serial / Lot Cedrick Hiole Cover Medium Plate Left: [facility] [id number] Implanted: Qty: 3 on 06/17/2017 by Skull IMPLANTS / Federico Chakraborty MD N/A / N/A Substitute Tissue 3x3in Lyoplant Left: [employer] NEURO 09/10/2021 [id number] / Dura Sodium Hydroxide [place] - Brain DIVISION [id number] / [id number] Implanted: Qty: 1 on 06/17/2017 by Federico Chakraborty MD Screw Bone Level One Titanium Left: [facility] [id number] Craniomaxillofacial Drill Free - Skull IMPLANTS / Sn/A N/A / Implanted: Qty: 9 on 06/17/2017 by N/A Federico Chakraborty MD Procedures Procedure Name Priority Date/Time Associated Diagnosis Comments ANESTHESIA ARTERIAL LINE Routine 06/17/2017 INSERTION 8:18 PM CDT Procedure Note - Wilber Cam MD - 06/17/2017 8:18 PM CDT Anesthesi a Procedure: Arterial Line Placement A-LINE INSERTION Date/Time: 06/17/2017 3:11 PM Patient location: OR Indication s: multiple ABGs and hemodynami c monitoring Preproced ure checklist performed: 2 patient identifier s, risks & benefits discussed, patient evaluated, timeout performed, consent obtained and patient being monitored Arterial Line Procedure Patient sedated: yes (see MAR) Sedation type: general; Artery prepped with chlorhexid ine; skin prep agent completely dried prior to procedure. Location: radial artery Laterality : right Technique: palpation and ultrasound Needle gauge: 20 G Number of attempts: 3 Procedure Outcome Catheter secured with adhesive dressing applied Events: no complicati ons noted during insertion and skin intact, warm, and dry Observatio n: pt tolerated well Additiona l notes: 3 attempt on R radial and 1 attempt at L radial art line placement with palpation by SRNA's. Successfu l placement of art line by JUHI using ultrasound under my direct supervisio n. KYesy costello 06/17/2017 Performed by: WILBER CAM Authorized by: WILBER CAM CRANIOTOMY FOR LEFT 06/17/2017 Brain tumor (HCC) FRONTAL TUMOR RESECTION 2:30 PM CDT WITH NAVIGATION CONSULT IV THERAPY TEAM Routine 06/13/2017 7:58 PM CDT from Last 3 Months Results * POC GLUCOSE (06/20/2017 11:57 AM) Only the most recent of 26 results within the time period is included. Component Value Ref Range Glucose, POC 172 (H) 70 - 100 MG/DL Specimen Performing Laboratory MAIN LAB [address] [place] [address] * URINALYSIS MICROSCOPIC REFLEX TO CULTURE (06/20/2017 2:10 AM) Only the most recent of 2 results within the time period is included. Component Value Ref Range WBCs,UA 0-2 0 - 2 /HPF RBCs,UA NONE 0 - 3 /HPF Comment,UA Urine submitted for reflex culture if criteria are met:WBC>10, positive nitrite and/or >=1+ leukocyte esterase. If quantity is not sufficient, an addendum will follow. Specimen Performing Laboratory Urine MAIN [facility] [address] [place] [address] * URINALYSIS DIPSTICK REFLEX TO CULTURE (06/20/2017 2:10 AM) Only the most recent of 2 results within the time period is included. Component Value Ref Range Color,UA STRAW Turbidity,UA CLEAR CLEAR-CLEAR Specific Siler-Urine 1.008 1.003 - 1.035 pH,UA 7.0 5.0 - 8.0 Protein,UA NEG NEG-NEG Glucose,UA 1+ (A) NEG-NEG Ketones,UA NEG NEG-NEG Bilirubin,UA NEG NEG-NEG Blood,UA NEG NEG-NEG Urobilinogen,UA NORMAL NORM-NORMAL Nitrite,UA NEG NEG-NEG Leukocytes,UA NEG NEG-NEG Urine Ascorbic Acid, UA NEG NEG-NEG Specimen Performing Laboratory Urine MAIN [facility] [address] [place] [address] * CBC AND DIFF (06/18/2017 1:30 AM) Only the most recent of 6 results within the time period is included. Component Value Ref Range White Blood Cells 14.0 (H) 4.5 - 11.0 K/UL RBC 4.71 4.0 - 5.0 M/UL Hemoglobin 11.4 (L) 12.0 - 15.0 GM/DL Hematocrit 34.1 (L) 36 - 45 % MCV 72.4 (L) 80 - 100 FL MCH 24.2 (L) 26 - 34 PG MCHC 33.4 32.0 - 36.0 G/DL RDW 14.8 11 - 15 % Platelet Count 266 150 - 400 K/UL MPV 8.8 7 - 11 FL Neutrophils 89 (H) 41 - 77 % Lymphocytes 4 (L) 24 - 44 % Monocytes 7 4 - 12 % Eosinophils 0 0 - 5 % Basophils 0 0 - 2 % Absolute Neutrophil Count 12.50 (H) 1.8 - 7.0 K/UL Absolute Lymph Count 0.50 (L) 1.0 - 4.8 K/UL Absolute Monocyte Count 0.90 (H) 0 - 0.80 K/UL Absolute Eosinophil Count 0.00 0 - 0.45 K/UL Absolute Basophil Count 0.00 0 - 0.20 K/UL Specimen Performing Laboratory Blood MAIN [facility] [address] [place] [address] * PHOSPHORUS (06/18/2017 1:30 AM) Only the most recent of 6 results within the time period is included. Component Value Ref Range Phosphorus 3.0 2.0 - 4.0 MG/DL Specimen Performing Laboratory Blood MAIN LAB [address] [place] [address] * MAGNESIUM (06/18/2017 1:30 AM) Only the most recent of 6 results within the time period is included. Component Value Ref Range Magnesium 1.9 1.6 - 2.6 mg/dL Specimen Performing Laboratory Blood [facility] [address] [place] [address] * BASIC METABOLIC PANEL (06/18/2017 1:30 AM) Only the most recent of 5 results within the time period is included. Component Value Ref Range Sodium 134 (L) 137 - 147 MMOL/L Potassium 3.5 3.5 - 5.1 MMOL/L Chloride 102 98 - 110 MMOL/L CO2 23 21 - 30 MMOL/L Anion Gap 9 3 - 12 Glucose 181 (H) 70 - 100 MG/DL Blood Urea Nitrogen 16 7 - 25 MG/DL Creatinine 0.54 0.4 - 1.00 MG/DL Calcium 9.1 8.5 - 10.6 MG/DL eGFR Non >60 >60 mL/min Comment: The eGFR is not validated for use in drug dosing adjustments.Continue to use estimated creatinine clearance per dosing reference text.Please contact the Clinical Pharmacist for questions. eGFR >60 >60 mL/min Comment: The eGFR is not validated for use in drug dosing adjustments.Continue to use estimated creatinine clearance per dosing reference text.Please contact the Clinical Pharmacist for questions. Specimen Performing Laboratory Blood [facility] [address] [place] [address] * MRI HEAD WO/W CONTRAST (06/18/2017 12:38 AM) Specimen Performing Laboratory [facility] RAD RESULTS Impressions Expected postoperative appearance following left frontal lobe tumor resection with residual medial marginal enhancement; close follow-up is recommended. Finalized by Villa Rascon MD on 06/18/2017 9:57 AM. Dictated by Villa Rascon MD on 06/18/2017 9:31 AM. Narrative EXAM: MRI BRAIN HISTORY: 77-year-old female with glioblastoma multiforme, status post resection. TECHNIQUE: Multiplanar and multisequence MR imaging of the head was performed. This was done both before and after the administration of 10 mLs of MultiHance contrast. COMPARISON: Preoperative MRI 06/14/2017. FINDINGS: Postoperative changes including scattered blood products and pneumocephalus from recent surgery in left anterior cranial fossa. There is continued edema with 5 mm rightward shift involving the left frontal lobe. Continued enlargement of the third and right lateral ventricle is likely related to some degree of mass effect/entrapment. Edema throughout the right frontal and parietal lobe white matter as well as the left parietal lobe is unchanged. Continued T2 FLAIR hyperintensity extending into the extreme capsule on the left. Following contrast administration, marginal enhancement most notable along the inferior and medial resection margins as demonstrated on this series 13, #18- 20. Subarachnoid enhancement is also present involving the anterior medial residual left frontal parenchyma coronal images 23-25. The 3-D postcontrast gradient images 102-106 demonstrated rim-enhancing tissue, which could represent residual neoplasm. The vascular flow-voids are unremarkable. Diffusion weighted imaging is not indicative of significant cytotoxic edema. Left mastoid effusion is present. Procedure Note Interface, Radiant Results - 06/18/2017 10:00 AM CDT EXAM: MRI BRAIN HISTORY: 77-year-old female with glioblastoma multiforme, status post resection. TECHNIQUE: Multiplanar and multisequence MR imaging of the head was performed. This was done both before and after the administration of 10 mLs of MultiHance contrast. COMPARISON: Preoperative MRI 06/14/2017. FINDINGS: Postoperative changes including scattered blood products and pneumocephalus from recent surgery in left anterior cranial fossa. There is continued edema with 5 mm rightward shift involving the left frontal lobe. Continued enlargement of the third and right lateral ventricle is likely related to some degree of mass effect/entrapment. Edema throughout the right frontal and parietal lobe white matter as well as the left parietal lobe is unchanged. Continued T2 FLAIR hyperintensity extending into the extreme capsule on the left. Following contrast administration, marginal enhancement most notable along the inferior and medial resection margins as demonstrated on this series 13, #18- 20. Subarachnoid enhancement is also present involving the anterior medial residual left frontal parenchyma coronal images 23-25. The 3-D postcontrast gradient images 102-106 demonstrated rim-enhancing tissue, which could represent residual neoplasm. The vascular flow-voids are unremarkable. Diffusion weighted imaging is not indicative of significant cytotoxic edema. Left mastoid effusion is present. IMPRESSION Expected postoperative appearance following left frontal lobe tumor resection with residual medial marginal enhancement; close follow-up is recommended. Finalized by Villa Rascon MD on 06/18/2017 9:57 AM. Dictated by Villa Rascon MD on 06/18/2017 9:31 AM. * SURGICAL PATHOLOGY (06/17/2017 5:11 PM) Component Value Ref Range PATHOLOGY REPORT [facility] [email or web address] Department of Pathology and Laboratory Medicine [address] [place] [address] Surgical Pathology Office:[phone]:[phone] SURGICAL PATHOLOGY REPORT NAME: ABEBA PHILLIPS SURG PATH #: [id number] MR #: [id number] SPECIMEN CLASS: [facility] BILLING #: [id number] ALT ID #:LOCATION: [id number] DATE OF PROCEDURE: 06/17/2017 AGE:77 SEX: F DATE RECEIVED: 06/17/2017 : 1940TIME RECEIVED:17:11 PHYSICIAN: FEDERICO CHAKRABORTY MD DATE OF REPORT: 06/20/2017 COPY TO:DATE OF PRINTIN06/20/2017 ################################################## ###################### Final Diagnosis: A. 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 B. Brain, "left frontal tumor", left frontal craniotomy: GLIOBLASTOMA, IDH1 [id number], WHO GRADE IV See comment. Comment: The Ki-67/MIB-1 proliferation index ranges from 10-15% and focally approaches 25%. BRAIN/Resection History of Previous Tumor/Familial Syndrome Lung cancer, 2016, pathology unknown Specimen Type/Procedure Resection Specimen Handling Intraoperative smears and frozen sections Routine permanent paraffin sections Specimen Size Greatest dimension: 5.6 cm Laterality Left Tumor Site Brain/cerebrum Histologic Type Astrocytic Tumors Glioblastoma, IDH1-R132H Wild-type WHO Histologic Grade WHO grade IV Additional Pathologic Studies Immunohistochemistry Block A5: GFAP, Ki-67/MIB-1, p53, IDH1-R132H (see microscopic description for additional details) The pathologic stage assigned here should be regarded as provisional, as it reflects only current pathologic data and does not incorporate full knowledge of the patient's clinical status and/or prior pathology. REFERENCE: WHO Classification of Tumours of the Central Nervous System (2016, IARC press, [place]) Note: Full assessment of IDH mutation status requires sequence analysis for IDH1 codon 132 and IDH2 codon 172 mutations in cases that are immunohistochemically negative for the IDH1 R132H mutation. However, in the setting of negative IDH1-R132H mutant immunohistochemistry in a glioblastoma from a patient without a prior lower-grade glioma, the probability of an alternative IDH mutation is <6% in a 50 year-old patient and decreases to <1% in patients aged >54 years. (Bambi L, et al 2014, Neuro Oncol 16 ([id number]. Pursuant to the [employer] Program at the [facility] Pathology Department, selected slides from this case will be reviewed by another pathologist and reported in an addendum. Blocks for molecular: A5, A4, A3, A2 Attestation: By this signature, I attest that I have personally formulated the final interpretation expressed in this report and that the above diagnosis is based upon my examination of the slides and/or other material indicated in this report. +++ +++ ksw/06/18/2017 ################################################## ###################### Material Received: A: left frontal tumor B: left frontal tumor for routine History: 77-year-old female who presents with altered cognition, aphasia and a fall without loss of consciousness in December 2016. She has a history of lung cancer, pathology unknown, that was resected in January 2016 for which she did not receive any chemotherapy and/or radiation. A recent MRI of the brain with contrast enhancement shows a large necrotic enhancing left frontal cerebral mass, most consistent with glioblastoma. A metastasis was also considered due to the history of lung cancer. She presents for surgical resection. Microscopic Description: Sections show atypical glial cells, numerous mitoses, endothelial/microvascular proliferation and extensive serpentine pseudopalisading necrosis and geographic necrosis. Immunohistochemistry - Block A5: GFAP: positive, highlights the endovascular proliferation Ki-67/MIB1: increased, ranges from 10-15% and focally approaches 25%. IDH1-R132H: negative p53: negative Gross Description: A. Received fresh labeled patient's name and "left frontal tumor for frozen" is a 5.0 x 4.5 x 2.3 cm fragment of brain and garcia-white fatty tissue. Specimen is serially sectioned and there are scattered areas of hemorrhage and necrosis throughout the specimen. A portion of the specimen is submitted for frozen section consultation with the remnant being placed in cassette A1FS. Certified Control Systems Technician sections are submitted in cassettes A2-A7. (formerly [facility]) B. received in formalin, labeled with the patient's name and "left frontal tumor" is a regular, unoriented, portion of brain measuring 5.6 x 4.1 x 3.2 cm. Surgical resection margins inked block the neural surface is garcia-tomlinson with visible sulci and gyri. Specimen is serially sectioned to reveal a friable, garcia-yellow cut surface. Represent sections of the specimen are submitted in cassettes B1-B5.([facility]) cg06/17/2017 Intraoperative Consultation: A1FS, smears, brain, "left frontal tumor", biopsy: High-grade neoplasm Note: A cytological smear/squash (A1TP) was performed on different areas from the specimen and used together with the frozen sections (A1FS) for optimal evaluation. Little Queen MD If immunohistochemical stains and/or in situ hybridization are cited in this report, the performance characteristics were determined by the Department of Pathology and Laboratory Medicine of the [facility] ([employer]) in compliance with CLIA'88 regulations.Some of these tests rely on the use of "analyte specific reagents" and are subject to specific labeling requirements by the FDA. Known positive and negative control tissues demonstrate appropriate staining.Results should be interpreted with caution given the likelihood of false negativity on decalcified specimens.This testing was developed by the Department of Pathology and Laboratory Medicine of the [facility].It has not been cleared or approved by the FDA.The FDA has determined that such clearance or approval is not necessary. Professional services performed by [facility], [facility], at [address] [place] [address] Specimen Performing Laboratory [facility] RESULTS * GLUCOSE,BG (06/17/2017 3:50 PM) Component Value Ref Range Glucose 132 (H) 70 - 100 MG/DL Specimen Performing Laboratory Blood [facility] [address] [place] [address] * SODIUM,BG (06/17/2017 3:50 PM) Component Value Ref Range Sodium 130 (L) 137 - 147 MMOL/L Specimen Performing Laboratory Blood MAIN LAB [address] [place] [address] * POTASSIUM, BG (06/17/2017 3:50 PM) Component Value Ref Range Potassium 3.4 (L) 3.5 - 5.1 MMOL/L Specimen Performing Laboratory Blood MAIN LAB [address] [place] [address] * LACTIC ACID (BG - RAPID LACTATE) (06/17/2017 3:50 PM) Component Value Ref Range Lactic Acid,BG 1.2 0.5 - 2.0 MMOL/L Specimen Performing Laboratory Blood MAIN LAB [address] [place] [address] * IONIZED CALCIUM,BG (06/17/2017 3:50 PM) Component Value Ref Range Ionized Calcium 1.17 1.0 - 1.3 MMOL/L Specimen Performing Laboratory Blood MAIN [facility] [address] [place] [address] * HEMOGLOBIN & HEMATOCRIT, BG (06/17/2017 3:50 PM) Component Value Ref Range Hemoglobin BG 11.9 (L) 12.0 - 15.0 GM/DL Hematocrit BG 36.8 36 - 45 % Specimen Performing Laboratory Blood MAIN LAB [address] [place] [address] * BLOOD GASES, ARTERIAL (06/17/2017 3:50 PM) Component Value Ref Range pH-Arterial 7.39 7.35 - 7.45 pCO2-Arterial 37 35 - 45 MMHG pO2-Arterial 364 (H) 80 - 100 MMHG Base Deficit-Arterial 2.5 MMOL/L O2 Sat-Arterial 99.7 (H) 95 - 99 % Huxwrqdlldj-INJ-Lyr 22.4 21 - 28 MMOL/L Specimen Performing Laboratory Blood, arterial - Blood MAIN LAB [address] [place] [address] * BLOOD TYPE CONFIRMATION - ORDER ONLY IF REQUESTED BY LAB (06/16/2017 6:20 AM) Component Value Ref Range ABO/RH(D) O POS Specimen Performing Laboratory Blood MAIN [facility] [address] [place] [address] * TYPE & CROSSMATCH (06/16/2017 5:55 AM) Component Value Ref Range Units Ordered 2 Crossmatch Expires 06/19/2017 Record Check 2ND TYPE REQUIRED ABO/RH(D) O POS Antibody Screen NEG Electronic Crossmatch YES Specimen Performing Laboratory Blood [facility] [address] [place] [address] * CT ABD/PELV W CONTRAST (06/15/2017 8:23 AM) Specimen Performing Laboratory [facility] RAD RESULTS Impressions CHEST: 1.Prior right upper lobectomy with resulting right lung volume loss. There are scattered areas of pleural-parenchymal scarring bilaterally, greatest in the right lung, though no suspicious pulmonary nodules are identified. 2.No thoracic adenopathy. 3.Scattered coronary artery calcification. ABDOMEN AND PELVIS: 1.Diffuse thickening of both adrenal glands without a discrete adrenal mass. This may be due to adrenal hyperplasia. Diffuse adrenal metastatic disease is less likely. Recommend comparison with prior comparison CT studies, if available, to determine chronicity. If unavailable, a repeat CT abdomen is recommended in 3 months to evaluate for stability. 2.No evidence of hepatic metastatic disease or abdominopelvic adenopathy. Finalized by Perla Seymour M.D. on 06/15/2017 10:26 AM. Dictated by Perla Seymour M.D. on 06/15/2017 10:[address] CHEST, ABDOMEN AND PELVIS Clinical Indication:Female, 77 years old. Cancer suspected Technique: Multiple contiguous axial images were obtained through the chest, abdomen and pelvis following the administration of IV contrast material. Portal venous phase of postcontrast imaging was obtained. Post processing coronal and sagittal reconstruction images were made from the axial images. IV contrast: Isovue-370 Bowel contrast:None Comparison: None CHEST FINDINGS: Lower Neck: Unremarkable Axilla, Mediastinum and Julia: No thoracic adenopathy. Heart and Great Vessels: The heart is normal in size. A small amount of pericardial fluid is noted in the pericardial recesses. Scattered three-vessel calcified coronary artery plaque is noted. The thoracic aorta is normal in caliber with mild mixed atherosclerotic plaque at the arch and descending aorta. Airway, Lungs and Pleura: Prior right upper lobectomy with mild resulting right lung volume loss. Mild, linear soft tissue thickening is noted adjacent to hilar surgical clips, likely postoperative in nature. Mild emphysema with scattered areas of pleural-parenchymal scarring, which is most notable in the anterior right hemithorax. No suspicious pulmonary nodules. No pleural effusion or pneumothorax. Chest Wall and Osseous Structures: Is bony demineralization. Mild right convexity thoracic curvature. No aggressive osseous lesions. ABDOMEN AND PELVIS FINDINGS: Liver and Biliary system: The liver is normal in size. No suspicious hepatic mass. There is a subcentimeter hypodensity in the right hepatic dome, which is too small to characterize though favored to represent a tiny cyst. Focal geographic sparing is noted adjacent to the falciform fissure and gallbladder fossa. The major portal veins are patent. Prior cholecystectomy. Mild ectasia of the extrahepatic bile duct. Spleen: Bleeding is normal in size with a peripherally calcified granuloma. Adrenal Glands and Kidneys: There is diffuse thickening of both adrenal glands without a discrete adrenal mass. The kidneys are symmetric in size. No hydronephrosis. Pancreas and Retroperitoneum: No retroperitoneal adenopathy. Mild fatty atrophy of the pancreas. Aorta and Major Vessels: Moderate aortoiliac atherosclerotic plaque. Focal, fusiform ectasia of the infrarenal aorta which measures approximately 2.4 cm in maximum diameter. Bowel, Mesentery and Peritoneal space: Small and large bowel loops are normal in caliber. Moderate pancolonic diverticulosis, which is greatest distally. No ascites. Pelvis: Evaluation of the pelvis is limited due to beam hardening artifact from bilateral total hip arthroplasties. The distended bladder is unremarkable. No obvious pelvic adenopathy. Abdominal wall and Osseous Structures: Diffuse bony demineralization. 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 Prior L4-L5 laminectomies with posterior spinal fixation from L3 to L5 and corpectomy at L4-L5 and L5-S1. No focal osseous lesions. Procedure Note Interface, Radiant Results - 06/15/2017 10:[address] CHEST, ABDOMEN AND PELVIS Clinical Indication: Female, 77 years old. Cancer suspected Technique: Multiple contiguous axial images were obtained through the chest, abdomen and pelvis following the administration of IV contrast material. Portal venous phase of postcontrast imaging was obtained. Post processing coronal and sagittal reconstruction images were made from the axial images. IV contrast: Isovue-370 Bowel contrast: None Comparison: None CHEST FINDINGS: Lower Neck: Unremarkable Axilla, Mediastinum and Julia: No thoracic adenopathy. Heart and Great Vessels: The heart is normal in size. A small amount of pericardial fluid is noted in the pericardial recesses. Scattered three-vessel calcified coronary artery plaque is noted. The thoracic aorta is normal in caliber with mild mixed atherosclerotic plaque at the arch and descending aorta. Airway, Lungs and Pleura: Prior right upper lobectomy with mild resulting right lung volume loss. Mild, linear soft tissue thickening is noted adjacent to hilar surgical clips, likely postoperative in nature. Mild emphysema with scattered areas of pleural-parenchymal scarring, which is most notable in the anterior right hemithorax. No suspicious pulmonary nodules. No pleural effusion or pneumothorax. Chest Wall and Osseous Structures: Is bony demineralization. Mild right convexity thoracic curvature. No aggressive osseous lesions. ABDOMEN AND PELVIS FINDINGS: Liver and Biliary system: The liver is normal in size. No suspicious hepatic mass. There is a subcentimeter hypodensity in the right hepatic dome, which is too small to characterize though favored to represent a tiny cyst. Focal geographic sparing is noted adjacent to the falciform fissure and gallbladder fossa. The major portal veins are patent. Prior cholecystectomy. Mild ectasia of the extrahepatic bile duct. Spleen: Bleeding is normal in size with a peripherally calcified granuloma. Adrenal Glands and Kidneys: There is diffuse thickening of both adrenal glands without a discrete adrenal mass. The kidneys are symmetric in size. No hydronephrosis. Pancreas and Retroperitoneum: No retroperitoneal adenopathy. Mild fatty atrophy of the pancreas. Aorta and Major Vessels: Moderate aortoiliac atherosclerotic plaque. Focal, fusiform ectasia of the infrarenal aorta which measures approximately 2.4 cm in maximum diameter. Bowel, Mesentery and Peritoneal space: Small and large bowel loops are normal in caliber. Moderate pancolonic diverticulosis, which is greatest distally. No ascites. Pelvis: Evaluation of the pelvis is limited due to beam hardening artifact from bilateral total hip arthroplasties. The distended bladder is unremarkable. No obvious pelvic adenopathy. Abdominal wall and Osseous Structures: Diffuse bony demineralization. 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 Prior L4-L5 laminectomies with posterior spinal fixation from L3 to L5 and corpectomy at L4-L5 and L5-S1. No focal osseous lesions. IMPRESSION CHEST: 1. Prior right upper lobectomy with resulting right lung volume loss. There are scattered areas of pleural-parenchymal scarring bilaterally, greatest in the right lung, though no suspicious pulmonary nodules are identified. 2. No thoracic adenopathy. 3. Scattered coronary artery calcification. ABDOMEN AND PELVIS: 1. Diffuse thickening of both adrenal glands without a discrete adrenal mass. This may be due to adrenal hyperplasia. Diffuse adrenal metastatic disease is less likely. Recommend comparison with prior comparison CT studies, if available , to determine chronicity. If unavailable, a repeat CT abdomen is recommended in 3 months to evaluate for stability. 2. No evidence of hepatic metastatic disease or abdominopelvic adenopathy. Finalized by Perla Seymour M.D. on 06/15/2017 10:26 AM. Dictated by Perla Seymour M.D. on 06/15/2017 10:04 AM. * CT CHEST W CONTRAST (06/15/2017 8:23 AM) Specimen Performing Laboratory [facility] RESULTS Impressions CHEST: 1.Prior right upper lobectomy with resulting right lung volume loss. There are scattered areas of pleural-parenchymal scarring bilaterally, greatest in the right lung, though no suspicious pulmonary nodules are identified. 2.No thoracic adenopathy. 3.Scattered coronary artery calcification. ABDOMEN AND PELVIS: 1.Diffuse thickening of both adrenal glands without a discrete adrenal mass. This may be due to adrenal hyperplasia. Diffuse adrenal metastatic disease is less likely. Recommend comparison with prior comparison CT studies, if available, to determine chronicity. If unavailable, a repeat CT abdomen is recommended in 3 months to evaluate for stability. 2.No evidence of hepatic metastatic disease or abdominopelvic adenopathy. Finalized by Perla Seymour M.D. on 06/15/2017 10:26 AM. Dictated by Perla Seymour M.D. on 06/15/2017 10:[address] CHEST, ABDOMEN AND PELVIS Clinical Indication:Female, 77 years old. Cancer suspected Technique: Multiple contiguous axial images were obtained through the chest, abdomen and pelvis following the administration of IV contrast material. Portal venous phase of postcontrast imaging was obtained. Post processing coronal and sagittal reconstruction images were made from the axial images. IV contrast: Isovue-370 Bowel contrast:None Comparison: None CHEST FINDINGS: Lower Neck: Unremarkable Axilla, Mediastinum and Julia: No thoracic adenopathy. Heart and Great Vessels: The heart is normal in size. A small amount of pericardial fluid is noted in the pericardial recesses. Scattered three-vessel calcified coronary artery plaque is noted. The thoracic aorta is normal in caliber with mild mixed atherosclerotic plaque at the arch and descending aorta. Airway, Lungs and Pleura: Prior right upper lobectomy with mild resulting right lung volume loss. Mild, linear soft tissue thickening is noted adjacent to hilar surgical clips, likely postoperative in nature. Mild emphysema with scattered areas of pleural-parenchymal scarring, which is most notable in the anterior right hemithorax. No suspicious pulmonary nodules. No pleural effusion or pneumothorax. Chest Wall and Osseous Structures: Is bony demineralization. Mild right convexity thoracic curvature. No aggressive osseous lesions. ABDOMEN AND PELVIS FINDINGS: Liver and Biliary system: The liver is normal in size. No suspicious hepatic mass. There is a subcentimeter hypodensity in the right hepatic dome, which is too small to characterize though favored to represent a tiny cyst. Focal geographic sparing is noted adjacent to the falciform fissure and gallbladder fossa. The major portal veins are patent. Prior cholecystectomy. Mild ectasia of the extrahepatic bile duct. Spleen: Bleeding is normal in size with a peripherally calcified granuloma. Adrenal Glands and Kidneys: There is diffuse thickening of both adrenal glands without a discrete adrenal mass. The kidneys are symmetric in size. No hydronephrosis. Pancreas and Retroperitoneum: No retroperitoneal adenopathy. Mild fatty atrophy of the pancreas. Aorta and Major Vessels: Moderate aortoiliac atherosclerotic plaque. Focal, fusiform ectasia of the infrarenal aorta which measures approximately 2.4 cm in maximum diameter. Bowel, Mesentery and Peritoneal space: Small and large bowel loops are normal in caliber. Moderate pancolonic diverticulosis, which is greatest distally. No ascites. Pelvis: Evaluation of the pelvis is limited due to beam hardening artifact from bilateral total hip arthroplasties. The distended bladder is unremarkable. No obvious pelvic adenopathy. Abdominal wall and Osseous Structures: Diffuse bony demineralization. 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 Prior L4-L5 laminectomies with posterior spinal fixation from L3 to L5 and corpectomy at L4-L5 and L5-S1. No focal osseous lesions. Procedure Note Interface, Radiant Results - 06/15/2017 10:[address] CHEST, ABDOMEN AND PELVIS Clinical Indication: Female, 77 years old. Cancer suspected Technique: Multiple contiguous axial images were obtained through the chest, abdomen and pelvis following the administration of IV contrast material. Portal venous phase of postcontrast imaging was obtained. Post processing coronal and sagittal reconstruction images were made from the axial images. IV contrast: Isovue-370 Bowel contrast: None Comparison: None CHEST FINDINGS: Lower Neck: Unremarkable Axilla, Mediastinum and Julia: No thoracic adenopathy. Heart and Great Vessels: The heart is normal in size. A small amount of pericardial fluid is noted in the pericardial recesses. Scattered three-vessel calcified coronary artery plaque is noted. The thoracic aorta is normal in caliber with mild mixed atherosclerotic plaque at the arch and descending aorta. Airway, Lungs and Pleura: Prior right upper lobectomy with mild resulting right lung volume loss. Mild, linear soft tissue thickening is noted adjacent to hilar surgical clips, likely postoperative in nature. Mild emphysema with scattered areas of pleural-parenchymal scarring, which is most notable in the anterior right hemithorax. No suspicious pulmonary nodules. No pleural effusion or pneumothorax. Chest Wall and Osseous Structures: Is bony demineralization. Mild right convexity thoracic curvature. No aggressive osseous lesions. ABDOMEN AND PELVIS FINDINGS: Liver and Biliary system: The liver is normal in size. No suspicious hepatic mass. There is a subcentimeter hypodensity in the right hepatic dome, which is too small to characterize though favored to represent a tiny cyst. Focal geographic sparing is noted adjacent to the falciform fissure and gallbladder fossa. The major portal veins are patent. Prior cholecystectomy. Mild ectasia of the extrahepatic bile duct. Spleen: Bleeding is normal in size with a peripherally calcified granuloma. Adrenal Glands and Kidneys: There is diffuse thickening of both adrenal glands without a discrete adrenal mass. The kidneys are symmetric in size. No hydronephrosis. Pancreas and Retroperitoneum: No retroperitoneal adenopathy. Mild fatty atrophy of the pancreas. Aorta and Major Vessels: Moderate aortoiliac atherosclerotic plaque. Focal, fusiform ectasia of the infrarenal aorta which measures approximately 2.4 cm in maximum diameter. Bowel, Mesentery and Peritoneal space: Small and large bowel loops are normal in caliber. Moderate pancolonic diverticulosis, which is greatest distally. No ascites. Pelvis: Evaluation of the pelvis is limited due to beam hardening artifact from bilateral total hip arthroplasties. The distended bladder is unremarkable. No obvious pelvic adenopathy. Abdominal wall and Osseous Structures: Diffuse bony demineralization. 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 Prior L4-L5 laminectomies with posterior spinal fixation from L3 to L5 and corpectomy at L4-L5 and L5-S1. No focal osseous lesions. IMPRESSION CHEST: 1. Prior right upper lobectomy with resulting right lung volume loss. There are scattered areas of pleural-parenchymal scarring bilaterally, greatest in the right lung, though no suspicious pulmonary nodules are identified. 2. No thoracic adenopathy. 3. Scattered coronary artery calcification. ABDOMEN AND PELVIS: 1. Diffuse thickening of both adrenal glands without a discrete adrenal mass. This may be due to adrenal hyperplasia. Diffuse adrenal metastatic disease is less likely. Recommend comparison with prior comparison CT studies, if available , to determine chronicity. If unavailable, a repeat CT abdomen is recommended in 3 months to evaluate for stability. 2. No evidence of hepatic metastatic disease or abdominopelvic adenopathy. Finalized by Perla Seymour M.D. on 06/15/2017 10:26 AM. Dictated by Perla Seymour M.D. on 06/15/2017 10:04 AM. * MRI HEAD W CONTRAST (06/14/2017 11:00 AM) Specimen Performing Laboratory [facility] RESULTS Impressions 1. Persistent large necrotic enhancing left frontal cerebral mass, most consistent with glioblastoma. 2. Associated [id number] midline shift and mild transient or herniation. 3. Stable ventriculomegaly which may be entirely due to generalized cerebral volume loss, though, superimposed communicating hydrocephalus could also be present. 4. Marked nonspecific white matter disease and pontine FLAIR hyperintensity which is likely due to chronic microvascular ischemia. Superimposed transependymal edema could also be present. Finalized by Keven Norwood M.D. on 06/14/2017 12:14 PM. Dictated by Keven Norwood M.D. on 06/14/2017 12:06 PM. Narrative EXAM: MRI BRAIN HISTORY: , brain mass, TECHNIQUE: Multiplanar and multisequence MR imaging of the head was performed performed following the administration of MultiHance contrast according to neuronavigational protocol. COMPARISON: MRI brain June 07, 2017 FINDINGS: Dr. Keven Norwood M.D. has personally reviewed these images and formulated the interpretations and opinions expressed in this report. Similar appearance of the large centrally necrotic periventricular and orbital left frontal mass with irregular enhancing rind measuring 6.2 x 4.7 x 4.7 cm ( image 143 series 6 and coronal image 42). Mild involvement of the anterior left basal ganglia is noted. Persistent surrounding left frontal edema with 5 mm left -to-right frontal midline shift and mild transalar herniation. Persistent mild ventriculomegaly which is discordant to the degree of sulcal prominence. Patchy and confluent FLAIR hyperintensity throughout the supratentorial white matter and levar consistent with marked nonspecific white matter disease. Superimposed transependymal edema could be present. Procedure Note Interface, Radiant Results - 06/14/2017 12:17 PM CDT EXAM: MRI BRAIN HISTORY: , brain mass, TECHNIQUE: Multiplanar and multisequence MR imaging of the head was performed performed following the administration of MultiHance contrast according to neuronavigational protocol. COMPARISON: MRI brain June 07, 2017 FINDINGS: Dr. Keven Nrowood M.D. has personally reviewed these images and formulated the interpretations and opinions expressed in this report. Similar appearance of the large centrally necrotic periventricular and orbital left frontal mass with irregular enhancing rind measuring 6.2 x 4.7 x 4.7 cm ( image 143 series 6 and coronal image 42). Mild involvement of the anterior left basal ganglia is noted. Persistent surrounding left frontal edema with 5 mm left -to-right frontal midline shift and mild transalar herniation. Persistent mild ventriculomegaly which is discordant to the degree of sulcal prominence. Patchy and confluent FLAIR hyperintensity throughout the supratentorial white matter and levar consistent with marked nonspecific white matter disease. Superimposed transependymal edema could be present. IMPRESSION 1. Persistent large necrotic enhancing left frontal cerebral mass, most consistent with glioblastoma. 2. Associated [id number] midline shift and mild transient or herniation. 3. Stable ventriculomegaly which may be entirely due to generalized cerebral volume loss, though, superimposed communicating hydrocephalus could also be present. 4. Marked nonspecific white matter disease and pontine FLAIR hyperintensity which is likely due to chronic microvascular ischemia. Superimposed transependymal edema could also be present. Finalized by Keven Norwood M.D. on 06/14/2017 12:14 PM. Dictated by Keven Norwood M.D. on 06/14/2017 12:06 PM. * HEMOGLOBIN A1C (06/14/2017 3:25 AM) Component Value Ref Range Hemoglobin A1C 6.3 (H) 4.0 - 6.0 % Comment: The ADA recommends that most patients with type 1 and type 2 diabetes maintain an A1c level <7%. Specimen Performing Laboratory [facility] [address] [place] [address] * IONIZED CALCIUM (06/14/2017 3:25 AM) Only the most recent of 2 results within the time period is included. Component Value Ref Range Ionized Calcium 1.17 1.0 - 1.3 MMOL/L Specimen Performing Laboratory [facility] [address] [place] [address] * PTT (APTT) (06/13/2017 8:45 PM) Component Value Ref Range APTT 25.5 21.0 - 39.0 SEC Specimen Performing Laboratory [facility] [address] [place] [id number] * PROTIME INR (PT) (06/13/2017 8:45 PM) Component Value Ref Range INR 1.0 0.8 - 1.2 Specimen Performing Laboratory [facility] [address] [place] [address] * COMPREHENSIVE METABOLIC PANEL (06/13/2017 8:45 PM) Component Value Ref Range Sodium 136 (L) 137 - 147 MMOL/L Potassium 3.3 (L) 3.5 - 5.1 MMOL/L Chloride 102 98 - 110 MMOL/L Glucose 143 (H) 70 - 100 MG/DL Blood Urea Nitrogen 14 7 - 25 MG/DL Creatinine 0.49Comment: QA FLAGS AND/OR RANGES MODIFIED BY 0.4 - 1.00 MG/ DL DEMOGRAPHIC UPDATE ON 06/14 AT 0814 Calcium 9.9 8.5 - 10.6 MG/DL Total Protein 7.1 6.0 - 8.0 G/DL Total Bilirubin 0.5 0.3 - 1.2 MG/DL Albumin 4.1 3.5 - 5.0 G/DL Alk Phosphatase 65 25 - 110 U/L AST (SGOT) 13 7 - 40 U/L CO2 24 21 - 30 MMOL/L ALT (SGPT) 6 (L) 7 - 56 U/L Anion Gap 10 3 - 12 eGFR Non >60 >60 mL/min Comment: The eGFR is not validated for use in drug dosing adjustments.Continue to use estimated creatinine clearance per dosing reference text.Please contact the Clinical Pharmacist for questions. eGFR >60 >60 mL/min Comment: The eGFR is not validated for use in drug dosing adjustments.Continue to use estimated creatinine clearance per dosing reference text.Please contact the Clinical Pharmacist for questions. Specimen Performing Laboratory [facility] [address] [place] [address] * CT HEAD EXTERNAL IMAGING (06/12/2017) Only the most recent of 2 results within the time period is included. Narrative This order has been auto finalized and does not contain a result. * MRI HEAD EXTERNAL IMAGING (06/07/2017) Narrative This order has been auto finalized and does not contain a result. from Last 3 Months
--- OUTSIDE RECORDS SUMMARY | 2017-06-20 16:49 | XMS REPORT | Encounter Summary ---
Author Author [facility] Organization [facility] Address Unknown Phone Unavailable Care Team Providers Care Health Education Teacher Name Role Phone Jeremy Graf MD PCP Reason for Visit * Reason Comments Consult * Auth/Cert Status Reason Specialty Diagnoses / Referred By Referred To Procedures Contact Contact Diagnoses Brain tumor (HCC) Brain lesion GBM (glioblastoma multiforme) (HCC) Encounter Details Date Type Department Care Team Description 06/18/2017 Office Visit Cancer [facility] - Radiation Rianna Vazquez MD Brain tumor (HCC) Therapy [address] (Primary Dx); [address] [place] [address] [place] [address] [place] [address] upper lobe of right lung [phone] (HCC) Social History Tobacco Use Types Packs/Day Years Used Date Former Smoker Cigarettes 2 30 Quit: 12/14/2016 Comments: Long-term smoker; 2 packs per day Alcohol Use Drinks/Week oz/Week Comments No Sex Assigned at Date Recorded Not on file as of this encounter Functional Status Functional Status Response Date of Assessment Does the patient have a hearing impairment: No 06/14/2017 as of this encounter Progress Notes * Rianna Vazquez MD - 06/18/2017 5:00 PM CDT Inpatient consult. Note dictated. in this encounter Plan of Treatment Not on fileas of this encounter Visit Diagnoses Diagnosis Brain tumor (HCC) - Primary Neoplasm of unspecified nature of brain Malignant neoplasm of upper lobe of right lung (HCC) Malignant neoplasm of upper lobe, bronchus or lung
--- OUTSIDE RECORDS SUMMARY | 2017-06-20 16:49 | XMS REPORT | Encounter Summary ---
Author Author [facility] Organization [facility] Address Unknown Phone Unavailable Care Team Providers Care Coal Hiker Name Role Phone Jeremy Graf MD PCP Encounter Details Date Type Department Care Team Description 06/17/2017 Procedure Pass [facility] Operating Room [address] [place] [address] Social History Tobacco Use Types Packs/Day Years Used Date Former Smoker Cigarettes 2 30 Quit: 12/14/2016 Comments: Long-term smoker; 2 packs per day Alcohol Use Drinks/Week oz/Week Comments No Sex Assigned at Date Recorded Not on file as of this encounter Functional Status Functional Status Response Date of Assessment Does the patient have a hearing impairment: No 06/14/2017 as of this encounter Plan of Treatment Not on fileas of this encounter Visit Diagnoses Not on filein this encounter
--- OUTSIDE RECORDS SUMMARY | 2017-06-20 16:49 | XMS REPORT | Encounter Summary ---
Author Author [facility] Organization [facility] Address Unknown Phone Unavailable Care Team Providers Care Search Coordinator Name Role Phone Jeremy Graf MD PCP Encounter Details Date Type Department Care Team Description 06/17/2017 Procedure Pass [facility] [address] [place], [place] [id number] Social History Tobacco Use Types Packs/Day Years [...]
--- OUTSIDE RECORDS SUMMARY | 2017-06-20 16:49 | XMS REPORT | Encounter Summary ---
Author Author [facility] Organization [facility] Address Unknown Phone Unavailable Care Team Providers Care Guest Services Agent Name Role Phone Jeremy Graf MD PCP Reason for Referral * Status Reason Specialty Diagnoses / Referred By Referred To Procedures Contact Contact New Request Procedures Kelsey Nicole/Iesha Aviles APRN REQUEST: [address] [facility]) [place] [address] [place] [id number] * Status Reason Specialty Diagnoses / Referred By Referred To Procedures Contact Contact New Request Procedures Ronald Nicole APRN REQUEST: [facility] [address] MS [facility] [place] [address] Reason for Visit * Auth/Cert Status Reason Specialty Diagnoses / Referred By Referred To Procedures Contact Contact Diagnoses Brain tumor (HCC) Brain lesion GBM (glioblastoma multiforme) (HCC) Encounter Details Date Type Department Care Team Description 06/13/2017 Hospital OK7 Federico Chakraborty MD Brain tumor (HCC) - Encounter [id number] [facility] [address] 06/20/2017 [place] [address] [place] [address] [place] [address] [phone] Social History Tobacco Use Types Packs/Day Years Used Date Former Smoker Cigarettes 2 30 Quit: 12/14/2016 Comments: Long-term smoker; 2 packs per day Alcohol Use Drinks/Week oz/Week Comments No Sex Assigned at Date Recorded Not on file as of this encounter Last Filed Vital Signs Vital Sign Reading [...] Mass Index 21.42 06/13/2017 7:33 PM CDT in this encounter Functional Status Functional Status Response Date of Assessment Does the patient have a hearing impairment: No 06/14/2017 as of this encounter Medications at Time of Discharge Medication Sig. Disp. Refills Start Date End Date acetaminophen (TYLENOL) Take 2 tablets by mouth 0 06/20/2017 325 mg tablet every 4 hours as needed. dexamethasone (DECADRON) Taper schedule: 4 mg 0 06/20/2017 4 mg tablet every 8 hours for 4 days, then 4 mg every 12 hours for 4 days, then 2 mg every 12 hours for 4 days, then 2 mg every day for 2 days, then stop docusate (COLACE) 100 mg Take 1 capsule by mouth 180 capsule 3 2017 capsule twice daily. heparin (porcine) PF Inject 0.5 mL under the 06/20/2017 5,000units/0.5mL skin every 8 hours. DVT injection syringe prophylaxis, continue until mobilizing well hydroCHLOROthiazide Take 25 mg by mouth every (HYDRODIURIL) 25 mg morning. tablet HYDROcodone/acetaminophen Take 1-2 tablets by mouth 0 06/20/2017 (NORCO) 5/325 mg tablet every 4 hours as needed Earliest Fill Date: 06/20/17 For pain levETIRAcetam (KEPPRA) Take 1 tablet by mouth 28 tablet 0 06/20/2017 07/04/2017 500 mg tablet twice daily for 14 days. lisinopril (PRINIVIL; Take 40 mg by mouth ZESTRIL) 20 mg tablet daily. senna/docusate Take 1 tablet by mouth 0 06/20/2017 (SENOKOT-S) 8.6/50 mg twice daily. tablet temazepam (RESTORIL) 7.5 Take 1 capsule by mouth 06/20/2017 mg capsule at bedtime as needed. as of this encounter Progress Notes * Traci Nicole, HANDY - 06/20/2017 12:45 PM CDT Med-Onc Quick Note: - Follow up with Dr. Rueda on 07/09/17 at [facility], [place], [place] on 07/09/17 at 9:30 am - Records faxed to Dr. Rueda's office for continuity of care Isaias Nicole, HANDY [phone] * Carito Quiles, RN - 06/20/2017 12:45 PM CDT DC orders received at [phone] - Paperwork reviewed, IV DC'd and all questions answered at this time. Transport placed and RN will continue to monitor until DC. * Vy Sidhu, HANDY - 06/20/2017 11:44 AM CDT Formatting of this note may be different from the original. Neurosurgery Progress Note Admission Date: 06/13/2017 LOS: 7 days S: Seen earlier with Dr. Chakraborty, plans for discharge to rehab today. Some urinary irritation overnight. UA done- was negative. Plan to check PVR. O: Vital Signs: 24 Hour Range BP: (127-161)/(66-92) Temp: [36.6 C (97.9 F)-37.1 C (98.8 F)] Pulse: [64-93] Respirations: [16 PER MINUTE-18 PER MINUTE] SpO2: [95 %-99 %] O2 Delivery: None (Room Air) Physical Exam: Alert and oriented to self, setting with choice Some confusion on date/time Follows commands with strength intact at the bed level Incision CDI, dressing removed A/P: 77 y.o. female Active Problems: Brain tumor (HCC) HTN (hypertension) Hx of cancer of lung Right arm weakness Facial droop CVA (cerebral vascular accident) (HCC) Aphasia Altered mental status Headache Severe malnutrition (HCC) Continue current care -- dexamethasone and keppra Pathology pending Onc/Rad Onc following - outpatient follow up, likely closer to home in [place] - Oncology Follow up with Dr. Kenney on 07/[address]; per onc, records faxed PT/OT/UTILITIES ESTIMATOR AND DRAFTER Discharge planning --discharge to [facility] in [place] today Prophylaxis: A) GI: PPI B) Lines: No C) Urinary Catheter: No D) Antibiotic Usage: No E) VTE: Pharmacological prophylaxis; SQ Heparin and Mechanical prophylaxis; Sequential compression device F) Restraints: Patient assessed for need for restraints. Please call [phone] with any questions. Vy Sidhu APRN Pager [phone] * Minda Soto, PT - 06/20/2017 10:14 AM CDT PHYSICAL THERAPY PROGRESS NOTE MOBILITY: Mobility Progressive Mobility Level: Walk in hallway Distance Walked (feet): 75 ft Level of Assistance: Assist X1 Assistive Device: Walker Time Tolerated: 11-30 minutes Activity Limited By: Fatigue;Weakness SUBJECTIVE: Subjective Significant hospital events: Left frontal craniotomy, resection of brain tumor Mental / Cognitive Status: Lethargic;Cooperative Pain: Patient has no complaint of pain Comments: patient does not complaints of pain today but reports freq fatigue and overall lethargy Ambulation Assist: Independent Mobility in Community with Device Patient Owned Equipment: Roller Walker;Single Point Cane Home Situation: Lives Alone Type of Home: House Entry Stairs: Ramp Comments: Daughter reported frequent falls prior to admission to due tumor BED MOBILITY/TRANSFERS: Bed Mobility/Transfers Bed Mobility: Supine to Sit: Minimal Assist;Bed Flat;No Rail Transfer Type: Sit to/from Stand Transfer: Assistance Level: From;Bed;Minimal Assist Transfer: Assistive Device: None Transfers: Type Of Assistance: For Balance;For Strength Deficit Other Transfer Type: Sit to/from Stand Other Transfer: Assistance Level: To/From;Toilet;Minimal Assist Other Transfer: Assistive Device: Roller Walker Other Transfer: Type Of Assistance: For Balance;For Strength Deficit;For Safety Considerations End Of Activity Status: Up in Chair;Nursing Notified;Instructed Patient to Request Assist with Mobility;Instructed Patient to Use Call Light BALANCE: Balance Sitting Balance: Static Sitting Balance;Dynamic Sitting Balance;No UE Support; Standby Assist Standing Balance: Static Standing Balance;Dynamic Standing Balance;2 UE support; Minimal Assist GAIT: Gait Gait Distance: 75 feet Gait: Assistance Level: Minimal Assist Gait: Assistive Device: Roller Walker Comments: discontinuous steps with decreased time spent on RLE, able to briefly break this cycle with weightshift manual cueing but fatigues quickly and highly distractible with stimulation in hallway with even signs on chavez ASSESSMENT/PROGRESS: Assessment/Progress Impaired Mobility Due To: Decreased Strength;Impaired Balance;Cognitive Deficits ;Safety Concerns;Decreased Activity Tolerance;Decreased Level of Alertness; Deconditioning;Post Surgical Changes Assessment/Progress: Should Improve w/ Continued PT Comments: patient with increased gait distance today and overall balance, demonstrating slow improvements each day AM-PAC 6 Clicks Basic Mobility Inpatient Turning from your back to your side while in a flat bed without using bed rails : A Little Moving from lying on your back to sitting on the side of a flatbed without using bedrails : A Little Moving to and from a bed to a chair (including a wheelchair): A Little Standing up from a chair using your arms (e.g. wheelchair, or bedside chair): A Little To walk in hospital room: A Little Climbing 3-5 steps with a railing: A Little Raw Score: 18 Standardized (T-scale) Score: 41.05 Basic Mobility CMS 0-100%: 40.47 [facility] G Code Modifier for Basic Mobility: CK GOALS: Goals Goal Formulation: With Patient Time For Goal Achievement: 7 days Pt Will Go Supine To/From Sit: Independently Pt Will Transfer Sit to Stand: w/ Stand By Assist Pt Will Ambulate: Greater than 200 Feet, w/ Walker, w/ Stand By Assist PLAN: Plan Treatment Interventions: Mobility Training;Balance Activities Plan Frequency: 5 Days per Week PT Plan for Next Visit: increase independent motor planning for transfers without use of walker, balance assessment, increase gait distance RECOMMENDATIONS: PT Discharge Recommendations PT Discharge Recommendations: Inpatient Setting Equipment Recommendations: Too early to be determined PT Plan for Next Visit: PT Plan for Next Visit: increase independent motor planning for transfers without use of walker, balance assessment, increase gait distance Therapist: Minda Soto, PT, DPT, [facility] Date: 06/20/2017 * Maryse Sheikh, RN - 06/19/2017 8:48 PM CDT Pt stating it hurts to urinate and is experiencing urgency and frequent need to urinate. Upon assessment she is has suprapubic pain. 2051: Neurosurgery notified. Dr. Lino ordered a UA. WCTM. * Minda Soto, PT - 06/19/2017 3:59 PM CDT PHYSICAL THERAPY NOTE Patient was unavailable for physical therapy x2 attempts today. Physical therapy will continue to follow and provide intervention as indicated. Therapist: Minda Soto PT, DPT Date: 06/19/2017 Stephanie Verma - 06/19/2017 3:07 PM CDT SPEECH-LANGUAGE PATHOLOGY DAILY TREATMENT NOTE Patient seen 1x this date. Documentation reflects all daily treatment sessions. SUMMARY OF THERAPY SESSION: Pt seen by UTILITIES ESTIMATOR AND DRAFTER for language tx. Pt's present for session. Pt lethargic requiring minimal to moderate cues throughout session to encourage participation and sustain alertness. Pt demonstrated improved auditory comprehension and word finding; however deficits remain. See below for more documentation. RECOMMENDATIONS: Short, direct phrases in order to promote functional auditory comprehension. Encourage pt to utilize compensatory word finding strategies to maximize communication (e.g., circumlocution, synonyms). Consistent supervision recommended at this time for d/c; language impairment likely to impact pt's ability to call for help. Continue speech therapy targeting language. Goal : Pt will generate descriptions of abstract concepts with 80% accuracy given minimal cues. Not addressed ; not appropriate this date. Continue to address this goal Goal : Pt will generate x5-7 stimuli as part of concrete category in 1-minute given moderate cues. Partly met Comments: Pt generated 4-5 words as part of concrete category in 1 minute given maximal cues. Provided sentence level definition, pt completed word generation task with 95% accuracy given minimal cues/repetitions. Pt answered moderately complex binary questions (this or that) with 75% accuracy given minimal to moderate repetitions/cues. As verbal expression task, pt generated the opposite of a given stimuli with 75% accuracy given moderate semantic/phonemic cues. Continue to address this goal PLAN / RECOMMENDATIONS: Continue treatment 2-3x/week Speech Discharge Recommendations: The patient could benefit from further intervention in a/an, Inpatient Setting Speech recommend ongoing assistance for: To maximize communication Therapist: Stephanie Heayl MA, CCC-UTILITIES ESTIMATOR AND DRAFTER Voalte: [phone] Pager: [phone] Date: 06/19/2017 * Esperanza Tineo - 06/19/2017 11:15 AM CDT Formatting of this note may be different from the original. OCCUPATIONAL THERAPY PROGRESS NOTE Patient Name: Abeba Phillips [id number] Admitting Diagnosis: Brain lesion GBM (glioblastoma multiforme) (HCC) Past Medical History: Diagnosis Date Altered mental status Aphasia Brain tumor (HCC) CVA (cerebral vascular accident) (HCC) Facial droop Right Family hx of lung cancer HTN (hypertension) Hx of cancer of lung Hypothyroidism Microcytic anemia Periprosthetic hip fracture Right arm weakness Mobility Progressive Mobility Level: Walk in room Distance Walked (feet): 30 ft Level of Assistance: Assist X1 Assistive Device: Walker Time Tolerated: 11-30 minutes Activity Limited By: Fatigue;Weakness Subjective Pertinent Dx per Physician: 77 yo F with PMH of CVA, HTN, and lung cancer who presented with large L frontal lobe brain mass s/p resection on 06/17. Precautions: Falls Pain / Complaints: Patient has no c/o pain Objective Psychosocial Status: Participates in Therapy with Encouragement Persons Present: Significant Other Vision Comment: R inattention not noted today. ADL's Where Assessed: In Bathroom;Chair Eating Assist: Independent Eating Deficits: Setup UE Dressing Assist: Stand By Assist UE Dressing Deficits: Setup;Supervision/Safety;Increased Time To Complete LE Dressing Assist: Minimal Assist LE Dressing Deficits: Thread RLE Into Pants;Steadying;Requires Assistive Device for Steadying;Supervision/Safety;Increased Time To Complete Toileting Assist: Stand By Assist Toileting Deficits: Supervision/Safety;Increased Time To Complete;Grab Bar Use Functional Transfer Assist: Stand By Assist Functional Transfer Deficits: Steadying;Supervision/Safety;Increased Time to Complete Pt ambulating better in room today with walker, but continuing to have short, step-to gait. Pt ambulated to toilet and completed full body dressing task only requiring physical assist for placing R foot into pants due to weakness. Pt was able to complete hygiene and pull pants over hips from standing position. Pt required several cues for continuation of task once initiated. Had dizziness at beginning of session when seated EOB but pt expressed improvement and continued session. Cognition Cognition Comment: Pt seemed to have improved alertness and conversational speech today. Continues to present with some aphasic behaviors of repeating off hand phrases. Assessment Assessment: Decreased ADL Status;Decreased Safe/Judg during ADL;Decreased Cognition;Decreased Endurance;Decreased Self-Care Trans;Decreased High-Level ADLs Prognosis: Good;w/Cont OT s/p Acute Discharge Goal Formulation: Patient AM-PAC 6 Clicks Daily Activity Inpatient Putting on and taking off regular lower body clothes?: A Little Bathing (Including washing, rinsing, drying): A Lot Toileting, which includes using toilet, bedpan, or urinal: A Little Putting on and taking off regular upper body clothing: A Little Taking care of personal grooming such as brushing teeth: A Little Eating meals?: None Daily Activity Raw Score: 18 Standardized (t-scale) score: 38.66 CMS 0-100% Score: 46.65 CMS G Code Modifier: CK Plan OT Frequency: 5x/week OT Plan for Next Visit: sink ADLs; cognition Functional Transfer Goals Pt Will Perform All Functional Transfers: w/ Assistive Devices, Modified Independent, w/ Good Judgment/Safety Vision Goals Pt Will Attend To R Of Body / Environment: 100% of the time, w/ Minimal Cues OT Discharge Recommendations OT Discharge Recommendations: Inpatient Setting Equipment Recommendations: Too early to be determined Recommend ongoing assistance for: In and out of house, Ambulation, Stairs, Safety concerns, Bathing, Dressing Therapist: Esperanza Tineo OTS Date: 06/19/2017 Associated attestation - Scarlett Glover OT - 06/19/2017 3:00 PM CDT Reviewed and concur. I was present throughout the session. * Sera Tracey APRN - 06/19/2017 8:00 AM CDT Formatting of this note may be different from the original. Neurosurgery Progress Note Admission Date: 06/13/2017 LOS: 6 days S: Family at bedside, seen with Dr. Chakraborty. O: Vital Signs: 24 Hour Range BP: (132-161)/(65-93) ABP: (130-151)/(38-50) Temp: [36.9 C (98.4 F)-37.4 C (99.4 F)] Pulse: [66-106] Respirations: [13 PER MINUTE-20 PER MINUTE] SpO2: [95 %-100 %] O2 Delivery: None (Room Air) Physical Exam: Alert and oriented to self, setting with choice Follows commands with strength intact at the bed level Dressing in place A/P: 77 y.o. female Active Problems: Brain tumor (HCC) HTN (hypertension) Hx of cancer of lung Right arm weakness Facial droop CVA (cerebral vascular accident) (HCC) Aphasia Altered mental status Headache Severe malnutrition (HCC) Continue current care -- dexamethasone and keppra Onc following Rad Onc following PT/OT/UTILITIES ESTIMATOR AND DRAFTER Discharge planning -- rehab following; CM/SW involved. Anticipate will be medically ready for discharge in the next 2-3 days. Prophylaxis: A) GI: PPI B) Lines: No C) Urinary Catheter: No D) Antibiotic Usage: No E) VTE: Pharmacological prophylaxis; SQ Heparin and Mechanical prophylaxis; Sequential compression device F) Restraints: Patient assessed for need for restraints. Please call [phone] with any questions. Sera Tracey, HANDY Pager [phone] * Kathy Lau RN - 06/18/2017 6:13 PM CDT Patient arrived to unit via wheelchair accompanied by RN. Patient made aware of surroundings and call light within reach. This RN will continue to monitor patient. * Stephanie Healy - 06/18/2017 1:28 PM CDT SPEECH-LANGUAGE PATHOLOGY DAILY TREATMENT NOTE Patient seen 1x this date. Documentation reflects all daily treatment sessions. SUMMARY OF THERAPY SESSION: Pt seen by UTILITIES ESTIMATOR AND DRAFTER for language tx; reassessment of receptive/expressive language skills for changes in function as craniotomy surgery took place on 06/17/17. In relation to initial assessment, pt presents with decreased function in areas of auditory comprehension and verbal/written expression. Pt presents with characteristics of aphasia most consistent with Wernicke's aphasia. Type of aphasia likely to evolve with resolution of edema post-operation. Pt demonstrates poor auditory comprehension, impaired repetition and word finding; speech fluent however non-specific with word finding errors. See below for more documentation. RECOMMENDATIONS: Short, direct phrases in order to promote functional auditory comprehension. Encourage pt to utilize compensatory word finding strategies to maximize communication (e.g., circumlocution, synonyms). Consistent supervision recommended at this time for d/c; language impairment likely to impact pt's ability to call for help. Continue speech therapy targeting language. Auditory comprehension: 1-step directions: 3/4 Multi-step directions: 0/4 Complex yes/no: 4/5 Reading comprehension: Biographical/pt information sheet: 5/7 Verbal expression: Repetition: 05/16 Automatic: 11/22 for months of year, 04/17 for days of week Perseveration and non-specific language in basic conversation (e.g., "As far as that goes," "so basically"). Written expression: Biographical information: 05/18, perseveration observed x3 Goal : Pt will generate descriptions of abstract concepts with 80% accuracy given minimal cues. Not addressed Continue to address this goal Goal : Pt will generate x5-7 stimuli as part of concrete category in 1-minute given moderate cues. Not addressed Continue to address this goal PLAN / RECOMMENDATIONS: Continue treatment 2-3x/week Speech Discharge Recommendations: The patient could benefit from further intervention in a/an, Inpatient Setting Speech recommend ongoing assistance for: To maximize communication Therapist: Stephanie Healy MA, CCC-UTILITIES ESTIMATOR AND DRAFTER Voalte: [phone] Pager: [phone] Date: 06/18/2017 * Sena Russ - 06/18/2017 12:06 PM CDT CLINICAL NUTRITION Clinical Nutrition Assessment Summary Nutrition Assessment of Patient: BMI Categories Adult: Acceptable: 18.5-24.9 (24.42) Unintentional Weight Loss: > 5% in 1 month (severe) Malnutrition Assessment: Malnutrition present Malnutrition Context: ICD-10 code E43: Chronic illness/Severe malnutrition Current Oral Intake: Inadequate, Improving Estimated Calorie Needs: 5072-1321 (30-33 kcal/kg admit wt 56.6kg) Estimated Protein Needs: 68-85 (1.2-1.5 gm/kg admit wt 56.6kg) Oral Diet Order: Regular ICD-10 code E43: Chronic illness/Severe malnutrition Energy intake: 75% or less of estimated energy requirement for 1 month or more, Weight loss: > 5% x 1 month, Severe loss of muscle mass, Severe loss of body fat Loss of Subcutaneous Fat: Yes Severe Orbital Muscle Wasting: Yes Severe Quadriceps, [place], Clavicle Edema: No Malnutrition Interventions: Ordered boost plus Qday with lunch tray. Also educated pt on high protein food options to include with each meal. Also discussed obtaining meal pass for daughter to use to find food pt may prefer in cafeteria. 77 yo F with PMH of CVA, HTN, and lung cancer who presented with large L frontal lobe brain mass s/p resection on 06/17. Pt transferred to neuro ICU following surgery. Spoke with pt and her daughter this morning. Pt was able to provide majority of subjective information, daughter also helped with diet Hx. Pt was able to eat a Turkmen yogurt parfait that daughter got from cafeteria this morning. Pt notes that MARINE DIVER her appetite was very poor and she lost ~40 lb in 2 months. Based on nutrition-focused physical assessment, pt has severe muscle wasting and fat loss (see detail on location above). Pt reports eating very little for the last month. She has been drinking coffee and daughter has been offering food like scrambled eggs and chicken salad. Daughter reports that she would bring food for her mother, than would go untouched. Pt was not taking any oral nutrition supplements MARINE DIVER but has tried them in the past. Today RD provided education on strategies for increasing PO intake to improve nutrition status. Encouraged pt order 3 meals per day and supplement with boost or carnation breakfast essentials between meals. Also discussed the importance of adequate protein for healing. Pt does not like many meats but does like milk, yogurt, chicken salad, eggs. Also discussed how to obtain meal passes with daughter, if pt desires to try something from the hospital cafeteria. Pt/ daughter verbalized understanding and denied having further questions in regards to nutrition at this time. Recommendation: Continue regular diet as ordered with encouragement of oral nutrition supplements with or between meals. Encourage good protein sources with each meal. Intervention / Plan: Ordered boost plus Qday with lunch tray. Also educated pt on high protein food options to include with each meal. Also discussed obtaining meal pass for daughter to use to find food pt may prefer in cafeteria. Monitor PO intakes, weight trends, labs, meds, GI health. Nutrition Diagnosis: Nutrition Diagnosis: Unintended weight loss Etiology: poor appetite, lack of desire to eat, and lethargy MARINE DIVER Signs & Symptoms: pt/daughter report of ~40 lb weight loss x 2 months Goals: Patient to consume >75% of meals/supplements Time Frame: Within 72 Hours Prevent further weight loss Time Frame: Throughout Stay Myesha Russ RD, LD Pager: [phone] * Esperanza Tineo - 06/18/2017 10:46 AM CDT Formatting of this note may be different from the original. OCCUPATIONAL THERAPY ASSESSMENT NOTE Patient Name: Abeba Phillips Room/Bed: [place] [address] Admitting Diagnosis: Brain lesion GBM (glioblastoma multiforme) (HCC) Past Medical History: Diagnosis Date Altered mental status Aphasia Brain tumor (HCC) CVA (cerebral vascular accident) (HCC) Facial droop Right Family hx of lung cancer HTN (hypertension) Hx of cancer of lung Hypothyroidism Microcytic anemia Periprosthetic hip fracture Right arm weakness Mobility Progressive Mobility Level: Walk in room Distance Walked (feet): 30 ft Level of Assistance: Stand by assistance Assistive Device: Walker Time Tolerated: 0-10 minutes Activity Limited By: Fatigue;Weakness Subjective Precautions: Falls Pain / Complaints: Patient has no c/o pain Objective Psychosocial Status: Willing and Cooperative to Participate Persons Present: Occupational Therapist;Daughter Home Living Type of Home: House Bathroom Shower / Tub: Tub/Shower Unit;Walk-in Shower Prior Function Lives With: Alone Receives Help From: None Needed Vocational: Retired Other Function Comments: Pt owns 4 pets. Lives in [place], [place] with a lot of family in the area. Significant history of falls recently. Vision Current Vision: Wears Glasses Only for Reading Comment: Possible R inattention as pt was attempting to put R sock on without sock in hand and required cues to realize what she was doing. ADL's Where Assessed: Chair LE Dressing Assist: Minimal Assist LE Dressing Deficits: Don/Doff R Sock;Verbal Cueing;Increased Time To Complete Toileting Assist: (Pt having horn removed upon entry ) Functional Transfer Assist: Stand By Assist Functional Transfer Deficits: Increased Time to Complete;Supervision/Safety; Steadying Comment: Pt ambulated in room with stand by assist and walker use. Pt presents with slow, short, nonreciprocal gait. Able to doff socks and don L sock with no assist. See vision note about R sock. Activity Tolerance Endurance: 2/5 Tolerates 10-20 Minutes Exercise w/Multiple Rests Cognition Overall Cognitive Status: Impaired Expression: Expressive Aphasia;Increased Time for Expression Cognition Comment: Pt mostly responding yes/no to questions appropriately. Able to elaborate on PLOF questions minimally. UE AROM Overall BUE AROM WNL: Yes Sensory Overall Sensory: Bilateral Intact Education Goal Formulation: With Patient Assessment Assessment: Decreased ADL Status;Decreased Safe/Judg during ADL;Decreased Cognition;Decreased Endurance;Decreased Self-Care Trans;Decreased High-Level ADLs Prognosis: Good;w/Cont OT s/p Acute Discharge Goal Formulation: Pt/family AM-PAC 6 Clicks Daily Activity Inpatient Putting on and taking off regular lower body clothes?: A Little Bathing (Including washing, rinsing, drying): A Lot Toileting, which includes using toilet, bedpan, or urinal: A Little Putting on and taking off regular upper body clothing: A Little Taking care of personal grooming such as brushing teeth: A Little Eating meals?: None Daily Activity Raw Score: 18 Standardized (t-scale) score: 38.66 CMS 0-100% Score: 46.65 CMS G Code Modifier: CK Plan OT Frequency: 5x/week OT Plan for Next Visit: sink ADLs; continue to monitor possible R inattention ADL Goals Patient Will Perform All ADL's: w/ Modified [place];In Chair;w/ Good Judgment/Safety Patient Will Perform LE Dressing: In Chair;w/ Stand By Assist Functional Transfer Goals Pt Will Perform All Functional Transfers: w/ Assistive Devices, Modified Independent, w/ Good Judgment/Safety Vision Goals Pt Will Attend To R Of Body / Environment: 100% of the time, w/ Minimal Cues OT Discharge Recommendations OT Discharge Recommendations: Inpatient Setting Equipment Recommendations: Too early to be determined Recommend ongoing assistance for: In and out of house, Transfers, Ambulation, Safety concerns, Dressing Therapist: FREDDY Jacques Date: 06/18/2017 Associated attestation - Scarlett Glover OT - 06/18/2017 11:27 AM CDT Reviewed and concur. I was present throughout the session. * Miriam Parekh APRN - 06/18/2017 9:55 AM CDT Formatting of this note may be different from the original. Neurosurgery Progress Note Admission Date: 06/13/2017 LOS: 5 days S: Family at bedside, seen with Dr. Chakraborty. Patient reports her head hurts a bit this AM. MRI results discussed with patient and family. Discussed plan of the day. O: Vital Signs: 24 Hour Range BP: (126-161)/(55-109) ABP: (145-172)/(52-67) Temp: [36.6 C (97.8 F)-37.1 C (98.8 F)] Pulse: [54-93] Respirations: [12 PER MINUTE-24 PER MINUTE] SpO2: [94 %-100 %] O2 Delivery: None (Room Air) Physical Exam: Alert and oriented to self, setting with choice PERRL WOO Follows commands Strength intact at the bed level Dressing in place A/P: 77 y.o. female Active Problems: Brain tumor (HCC) HTN (hypertension) Hx of cancer of lung Right arm weakness Facial droop CVA (cerebral vascular accident) (HCC) Aphasia Altered mental status Headache Progress to floor status MRI head reviewed this AM, Onc following, Rad Onc consult placed PT/OT/UTILITIES ESTIMATOR AND DRAFTER, Rehab consult placed. Dex and Keppra Na 134 WBC elevated-steroid induced leukocytosis, afebrile continue to monitor Anticipate will be medically ready for discharge in the next 2-3 days. Prophylaxis: A) GI: PPI B) Lines: No C) Urinary Catheter: No D) Antibiotic Usage: No E) VTE: Mechanical prophylaxis; Sequential compression device No anticoagulation until 48 hours post operative; contraindication due to bleeding risk F) Restraints: Patient assessed for need for restraints. Please call [phone] with any questions. Miriam Parekh APRN Pager [phone] * Shantell Reeder, PT - 06/18/2017 9:11 AM CDT PHYSICAL THERAPY ASSESSMENT MOBILITY: Mobility Progressive Mobility Level: Walk in room Distance Walked (feet): 20 ft Level of Assistance: Assist X1 Assistive Device: Walker Time Tolerated: 0-10 minutes Activity Limited By: Lethargy SUBJECTIVE: Subjective Significant hospital events: Left frontal craniotomy, resection of brain tumor Mental / Cognitive Status: Lethargic;Cooperative Persons Present: Daughter Pain: Patient complains of pain;Patient unable to rate pain Pain Location: Headache Pain Description: Aching Ambulation Assist: Independent Mobility in Community with Device Patient Owned Equipment: Roller Walker;Single Point Cane Home Situation: Lives Alone Type of Home: House Entry Stairs: Ramp Comments: Daughter reported frequent falls prior to admission to due tumor ROM: ROM LE ROM WFL: Yes POSTURE/NEURO: Posture / Neurological Overall Tone: Normal LLE Sensation/Proprioception: No Deficits Noted RLE Sensation/Proprioception: No Deficits Noted BED MOBILITY/TRANSFERS: Bed Mobility/Transfers Bed Mobility: Supine to Sit: Minimal Assist;Head of Bed Elevated;Assist with Trunk;Requires Extra Time BALANCE: Balance Standing Balance: Dynamic Standing Balance;2 UE support;Minimal Assist GAIT: Gait Gait Distance: 20 feet Gait: Assistance Level: Minimal Assist;Safety Considerations;Management of Lines Gait: Assistive Device: Roller Walker Gait: Descriptors: Decreased foot clearance RLE;Decreased foot clearance LLE; Pace: Slow;Step-To Gait;No balance loss Comments: limited ambulation this day due to patient's systolic blood presure being in the 170s andher goal is below 160. Patient needs moderate verbal and tactile cueing with right turns EDUCATION: Education Persons Educated: Patient Patient Barriers To Learning: Decreased Alertness Interventions: Repetition of Instructions;Louder Voice Required Teaching Methods: Verbal Instruction Patient Response: More Instruction Required;Verbalized Understanding Topics: Plan/Goals of PT Interventions;Use of Assistive Device/Orthosis; Mobility Progression;Safety Awareness;Up with Assist Only;Importance of Increasing Activity;Ambulate With Nursing ASSESSMENT/PROGRESS: Assessment/Progress Assessment/Progress: Should Improve w/ Continued PT AM-PAC 6 Clicks Basic Mobility Inpatient Turning from your back to your side while in a flat bed without using bed rails : A Little Moving from lying on your back to sitting on the side of a flatbed without using bedrails : A Little Moving to and from a bed to a chair (including a wheelchair): A Little Standing up from a chair using your arms (e.g. wheelchair, or bedside chair): A Little To walk in hospital room: A Little Climbing 3-5 steps with a railing: A Little Raw Score: 18 Standardized (T-scale) Score: 41.05 Basic Mobility CMS 0-100%: 40.47 CMS G Code Modifier for Basic Mobility: CK G-Codes: Mobility G8978 Current Status: 40-59% Impairment G8979 Goal Status: 1-19% Impairment Based on above evaluation and clinical judgment. GOALS: Goals Goal Formulation: With Patient Time For Goal Achievement: 7 days Pt Will Go Supine To/From Sit: Independently Pt Will Transfer Sit to Stand: w/ Stand By Assist Pt Will Ambulate: Greater than 200 Feet, w/ Walker, w/ Stand By Assist PLAN: Plan Treatment Interventions: Mobility Training;Balance Activities Plan Frequency: 5 Days per Week PT Plan for Next Visit: work on bed mobility, transfers, perform balance assessment once patient is more alert, and progress ambulation RECOMMENDATIONS: PT Discharge Recommendations PT Discharge Recommendations: Inpatient Setting PT PLAN FOR NEXT VISIT: PT Plan for Next Visit: work on bed mobility, transfers, perform balance assessment once patient is more alert, and progress ambulation Therapist: Shantell Reeder, PT, DPT Date: 06/18/2017 * Minda Soto, PT - 06/17/2017 10:31 AM CDT PHYSICAL THERAPY NOTE Plan for OR today, will f/u post op. Therapist: Minda Soto, PT Date: 06/17/2017 * Traci Knight, PT - 06/15/2017 1:23 PM CDT PHYSICAL THERAPY NOTE Patient declined to participate despite encouragement and education about the role and benefits of physical therapy. Patient has been mobilizing in room with medical staff manager. Will plan to follow up after OR, planned for Saturday06/17/17. Physical therapy will continue to follow and provide intervention as indicated. Therapist: Traci Knight, PT Date: 06/15/2017 * Edwige Lino MD - 06/15/2017 11:39 AM CDT Spoke with Ms. Phillips's daughter via phone today. All questions regarding surgery at this time answered. She plans to be here Saturday at 2 prior to OR. Edwige Lino [phone] * Shayla Figueroa, RN - 06/14/2017 8:08 PM CDT Patient arrived on unit via wheelchair accompanied by RN. Patient transferred to the bed without assistance. Assessment completed, refer to flowsheet for details. Orders released, reviewed, and implemented as appropriate. Oriented to surroundings, call light within reach. Plan of care reviewed. Will continue to monitor and assess. * Demetria Jordan, OT - 06/14/2017 3:32 PM CDT OCCUPATIONAL THERAPY NOTE OT orders received and appreciated. Chart reviewed and discussed status with RN. Plan is for OR on Saturday (06/17) for tumor resection. Per RN, patient is currently up with assist x1. Encouraged RN to continue mobilizing with patient, OT will follow up post-operatively to provide evaluation/intervention as indicated. Therapist: DONNA Busch/L [id number] Date: 06/14/2017 * Shantell Maurer M.Div, [facility] - 06/14/2017 2:22 PM CDT Reason for Visit: Patient request at admission Josee/Nondenominational: The patient is Yarsanism and does not attend restorationism. Worries/Concerns/Struggles: She is both scared about the surgery and happy to get it over with on Saturday. Support System: Her daughter and granddaughter will be here on Saturday during the surgery. Interventions/Plan: The search and rescue officer prayed with the patient and assessed her spiritual needs. Her spiritual need is low now, but may be higher following the surgery. The search and rescue officer will visit again next week for follow up after the surgery. The spiritual care team is available as needed, 03/09, through the campus switchboard ([phone]). For immediate response, please page [phone]. For a response within 24 hours, please submit an order in O2 for a search and rescue officer consult or call the administrative voicemail at [phone]. * Traci Knight, TIANNA - 06/14/2017 10:43 AM CDT PHYSICAL THERAPY NOTE Patient was unavailable for physical therapy, off unit at MRI. Discussed mobility with bedside RN who reports patient is moving at baseline with 1 person assist. Encouraged RN to continue mobilization in room. Physical therapy will continue to follow and provide intervention as indicated. Therapist: Traci Knight PT Date: 06/14/2017 * Stephanie Healy - 06/14/2017 10:22 AM CDT SPEECH-LANGUAGE PATHOLOGY SPEECH-LANGUAGE ASSESSMENT EVALUATION SUMMARY Summary* Diff Diagnosis / Severity: Anomic Aphasia Summary: Speech language assessment completed this date. Pt presents with language deficits most consistent with anomic aphasia. Pt presents with fluent speech, intact comprehension and repetition however word finding impairments present. Communication breakdowns noted at the sentence/conversational levels; pt functional with confrontation naming of concrete objects. Unable to assess further due to pt leaving for MRI. Prognosis: Fair Plan: Continue Treatment 2-3x/week Results Reported to Physician: Yes RECOMMENDATIONS: Utilize compensatory word finding strategies to maximize communication (e.g., circumlocution, synonyms). Continue speech therapy targeting expressive language. AUDITORY COMPREHENSION Overall Severity*: WFL Comments*: Complex commands: 100%; Complex yes/no: 100%; Sentence Repetition: 100%. Pt demonstrated auditory comprehension functional for participation in basic conversation as evidenced by discussion of prior level of function, wants/ needs, and personal preferences. VERBAL EXPRESSION Overall Severity*: Mild Comments*: Serial numbers: 100%; Serial months: 100%; Confrontation namin% ; Picture description: Brief, non-specific sentences, no noticeable word finding deficits; Generative naming (abstract): 2 in 1 minute. Word finding difficulty noted in participation in basic conversation requiring minimal to moderate cues to clarify/resolve. READING COMPREHENSION Overall Severity*: Mild Comments*: Complex paragraph: 80% (may be impacted by recall) WRITTEN EXPRESSION Overall Severity*: Mild Comments*: Name: 100%; Words independently: 75% with perservations Objective* Relevant Med Background: Pt is a 77 y.o. female with a newly discovered left frontal brain mass on MRI imaging. She presents without family and has somewhat altered cognition as well as aphasia which makes obtaining the history somewhat difficult, but as best as I can understand, she fell last December around gi (states she tripped over the cat). Apparently at that time did not lose consciousness. States she was diagnosed with a stroke. When asked if she had any weakness/numbness, she states no. She states she was told the stroke was in the "middle" of her brain, not on one side or the other. She then states she has had issues with speaking and with right sided weakness that has been progressing over an undefinable time course. She has a history of lung cancer s/p resection in 2015. Patient denies getting chemo or radiation for this. 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 Handedness: Right Hearing: [facility] Education Level: College Lives With: Alone Receives Help From: None Needed Vocational: Retired Psychosocial Status: Willing and Cooperative to Participate Persons Present: None MRI ordered at time of evaluation however results not present in chart. Subjective* Pain: Patient has no complaint of pain Pain Level Current*: No pain Trach Presence: No Feeding Tube Present During Eval: None Education* Persons Educated: Patient Barriers To Learning: Impaired Communication Interventions: Repetition of Instructions Teaching Methods: Verbal Topics: Aphasia Patient Response: Verbalized Understanding Goal Formulation: With Patient Speech Language Goals* Goal : Pt will generate descriptions of abstract concepts with 80% accuracy given minimal cues. Goal : Pt will generate x5-7 stimuli as part of concrete category in 1-minute given moderate cues. Therapist: Stephanie Healy MA, CCC-UTILITIES ESTIMATOR AND DRAFTER Voalte: [phone] Pager: [phone] Date: 06/14/2017 * Siomara Billingsley APRN-NP - 06/14/2017 8:12 AM CDT Formatting of this note may be different from the original. Neurosurgery Progress Note Admission Date: 06/13/2017 LOS: 1 day S: No acute events noted. Patient seen earlier this morning with the neurosurgery resident team and again with Dr. Chakraborty. Discussed plans for surgery on Saturday. Patient agreeable with plan. O: Vital Signs: 24 Hour Range BP: (114-168)/(62-99) Temp: [36.6 C (97.9 F)-37.1 C (98.7 F)] Pulse: [61-119] Respirations: [14 PER MINUTE-29 PER MINUTE] SpO2: [94 %-98 %] O2 Delivery: None (Room Air) Physical Exam: Briskly awake and alert Oriented to place, name, year; mildly confused conversation WOO to command Strength grossly intact A/P: 77 y.o. male Active Problems: Brain tumor (HCC) HTN (hypertension) Hx of cancer of lung Right arm weakness Facial droop CVA (cerebral vascular accident) (HCC) Aphasia Altered mental status Headache Plan: Transfer to floor Continue Dex 4q6 Continue Keppra Diabetic diet with SSI K+ 3.3 this morning, replaced Phos 1.9, replacement ordered Oncology following Plan for OR Saturday 06/17 for tumor resection Prophylaxis: A) GI: PPI B) Lines: No C) Urinary Catheter: No D) Antibiotic Usage: No E) VTE: Pharmacological prophylaxis; SQ Heparin and Mechanical prophylaxis; Sequential compression device F) Restraints: Patient assessed for need for restraints. Please call [phone] with any questions. GERTRUDE Leon Pager [phone] * Ronn Lilly MD - 06/14/2017 6:39 AM CDT Brief update note: Neuro exam stable, patient remains oriented only to self and situation. Mild suprapubic pain to palpation, UA ordered. Will transfer to floor today. Abeba Phillips is a 77 y.o. male with significant medical history of R middle lung cancer s/p lobectomy in 2016, HTN, anemia, arthritis, gerd, hypothyroidism , urinary retention hx, and nicotine abuse who presents as a transfer from [place], [place] for newly diagnosed brain tumor. Hospital and ICU course: 06/13: Admit to NEICU for management of left frontal mass. 06/14: No acute events overnight. Remains disoriented. Likely to OR 06/17. Neuro: Left frontal mass Headaches Falls - External CT and MRI head 06/13: Left frontal mass with surrounding edema - Likely metastatic given extensive hx of cancer - Alert and oriented to self and situation Plan - Decadron 4mg IV Q6 - Keppra 500mg IV BID - IV zofran 8mg q6h PRN for nausea - Neuro-ICU monitoring, neurochecks q 1 hrs - Surgical plan per neuro; Tentative craniotomy planned Saturday Sedation/Pain Management: - Fentanyl 25-50 mcg q1h prn, Tylenol 650mg PO q4h prn - [place] 5/325 mg q4h prn - Assess for delirium daily Cardiac: HTN - SBP goal <160 - MAP goal > 65 Plan - Restart MARINE DIVER regimen after confirmation with pharmacy (atenolol, HCTZ, lisinopril) - Labetolol PRN Respiratory: Hx of R Lung cancer s/p right middle lobectomy 2016 Nicotine abuse - Stable on RA - PaO2 goal >100, Spo2 goal >95%, PCO2 goal 35-40 torr GI/: - Feeding: Diabetic diet - neurosurgery bowel regimen, ensure daily BM Heme: Hx of chronic anemia - Hgb 11.6, Plt 292, INR 1.0 Plan - Daily CBC - assess for coagulopathy, maintain platelets above 100k, INR <1.5 - Heparin sq ppx ID: - Patient suprapubic tenderness on exam, admits to some recent fevers, denies any dysuria, hematuria, or pyuria - Tmax afebrile - UA w reflex to culture for UTI r/o - aim for normothermia, Temp <38.3 celsius, normothermia protocol if febrile Renal: Flask Carrier 0.54, BUN 18 Plan - Daily BMP - I/O balance even over 24 hrs - Aim for normovolemia Endocrine: Hypothyroidism Steroid induced hyperglycemia - Restart MARINE DIVER synthroid after med rec - Blood glucose goal 100-180mg/dl - LDCF - Diabetic diet - A1c pending [place]: Hx of left thumb ca s/p partial amputation - NTD FEN: - IVF: No IVFs - Magnesium goal >2.0, i-Navid goal > 1.0, Potassium goal >4.0 mEq/L Prophylaxis Review: A)GI: Not indicated B) Lines: No C) Urinary Catheter: No D) Antibiotic Usage: No E) VTE: Mechanical prophylaxis; Sequential compression device F) Isolation: none G)Seizures: none I) Restraints: Patient assessed for need for restraints. Disposition/Family: ICU Primary service: NSG Consults: NCC Associated attestation - Krista Durand MD - 06/16/2017 1:29 PM CDT Formatting of this note may be different from the original. ATTESTATION I personally performed the watt portions of the E/M visit, discussed case with resident and concur with resident documentation of history, physical exam, assessment, and treatment plan unless otherwise noted. Staff name: Krista Durand MD Date: 06/16/2017 * Ashlyn Manning RN - 06/13/2017 9:32 PM CDT 2129 - Patient's daughter and Asia MONTANO called unit to get an update on patient's status. Asia explained that in her opinion Abeba's memory had been declining for the last couple of months; at moments Abeba's memory seems to be mostly intact, at other times she has forgotten Asia while talking to her. Daughter requested to be kept up to date on plan of care. NeuroSurg Owen Edouard informed of DUSTY's request, also informed that the patient was hungry and inquiring if she could have a diet. Regular diet ordered. 2199 - Patient became asymptomatically tachycardic with HR in the 110's, SBP dropped from 140-130 to 110/ NEICU Will Seymour informed of the changes. Patient's admission labs revealed a potassium of 3.3 and a magnesium of 1.6, Lion requested that electrolyte protocol be followed. 0 - Patient remained tachycardicand had no complaints, but when asked if this was her baseline patient mentioned that she takes medication to control her heart rate. Patient couldn't remember the name or dose of her medication. Patient denied any history of atrial fibrillation. ANA Seymour informed, ECG 12-lead ordered. 06/14/2017 0450 - Patient's lab resulted in O2 revealing an elevated glucose level of 275, patient denies any history of diabetes. ANA Seymour informed, Lion stated that she'd review the patient's chart and place orders as needed. * Ashlyn Manning, ALISON - 06/13/2017 7:33 PM CDT Patient arrived on unit via cart accompanied by transport. Patient transferred to the bed with assistance. Assessment completed, refer to flowsheet for details. Orders released, reviewed, and implemented as appropriate. Oriented to surroundings, call light within reach. Plan of care reviewed. Initial patient assessment completed, refer to flowsheet for details. Admission skin assessment completed by: Will continue to monitor and assess. Pressure Injury Present on Hospital Admission (within 24 hours): No 1. Occiput: No 2. Ear: No 3. Scapula: No 4. Spinous Process: No 5. Shoulder: No 6. Elbow: No 7. Iliac Crest: No 8. Sacrum/Coccyx: No 9. Ischial Tuberosity: No 10. Trochanter: No 11. Knee: No 12. Malleolus: No 13. Heel: No 14. Toes: No 15. Assessed for device associated injury Yes 16. Nursing Nutrition Assessment Completed Yes See Doc Flowsheet for additional wound details. in this encounter H&P Notes * Miriam Parekh APRN - 06/17/2017 8:29 AM CDT Formatting of this note may be different from the original. History and Physical Update Note Allergies: Compazine [prochlorperazine edisylate]; Losartan; and Sulfa ( sulfonamide antibiotics) Lab/Radiology/Other Diagnostic Tests: 24-hour labs: Results for orders placed or performed during the hospital encounter of (from the past 24 hour(s)) POC GLUCOSE Collection Time: 06/16/17 8:41 AM Result Value Ref Range Glucose, POC 189 (H) 70 - 100 MG/DL POC GLUCOSE Collection Time: 06/16/17 11:34 AM Result Value Ref Range Glucose, POC 167 (H) 70 - 100 MG/DL POC GLUCOSE Collection Time: 06/16/17 6:01 PM Result Value Ref Range Glucose, POC 142 (H) 70 - 100 MG/DL POC GLUCOSE Collection Time: 06/16/17 9:09 PM Result Value Ref Range Glucose, POC 157 (H) 70 - 100 MG/DL BASIC METABOLIC PANEL Collection Time: 06/17/17 5:06 AM Result Value Ref Range Sodium 131 (L) 137 - 147 MMOL/L Potassium 3.8 3.5 - 5.1 MMOL/L Chloride 97 (L) 98 - 110 MMOL/L CO2 28 21 - 30 MMOL/L Anion Gap 6 3 - 12 Glucose 169 (H) 70 - 100 MG/DL Blood Urea Nitrogen 26 (H) 7 - 25 MG/DL Creatinine 0.59 0.4 - 1.00 MG/DL Calcium 9.4 8.5 - 10.6 MG/DL eGFR Non >60 >60 mL/min eGFR >60 >60 mL/min CBC AND DIFF Collection Time: 06/17/17 5:06 AM Result Value Ref Range White Blood Cells 6.3 4.5 - 11.0 K/UL RBC 5.22 (H) 4.0 - 5.0 M/UL Hemoglobin 12.3 12.0 - 15.0 GM/DL Hematocrit 36.6 36 - 45 % MCV 70.1 (L) 80 - 100 FL MCH 23.6 (L) 26 - 34 PG MCHC 33.6 32.0 - 36.0 G/DL RDW 14.8 11 - 15 % Platelet Count 274 150 - 400 K/UL MPV 9.2 7 - 11 FL Neutrophils 81 (H) 41 - 77 % Lymphocytes 11 (L) 24 - 44 % Monocytes 8 4 - 12 % Eosinophils 0 0 - 5 % Basophils 0 0 - 2 % Absolute Neutrophil Count 5.10 1.8 - 7.0 K/UL Absolute Lymph Count 0.70 (L) 1.0 - 4.8 K/UL Absolute Monocyte Count 0.50 0 - 0.80 K/UL Absolute Eosinophil Count 0.00 0 - 0.45 K/UL Absolute Basophil Count 0.00 0 - 0.20 K/UL MAGNESIUM Collection Time: 06/17/17 5:06 AM Result Value Ref Range Magnesium 2.0 1.6 - 2.6 mg/dL PHOSPHORUS Collection Time: 06/17/17 5:06 AM Result Value Ref Range Phosphorus 3.3 2.0 - 4.0 MG/DL POC GLUCOSE Collection Time: 06/17/17 7:42 AM Result Value Ref Range Glucose, POC 158 (H) 70 - 100 MG/DL Point of Care Testing: (Last 24 hours): Glucose: (!) 169 (06/17/17 9455) POC Glucose (Download): (!) 158 (06/17/17 6008) I have examined the patient, and there are no significant changes in their condition, from the previous H&P performed on 06/13/17. Miriam Parekh APRN Pager [phone] Neurosurgery History and Physical Examination Abeba Phillips Admission Date: 06/13/17 Chief Complaint: Altered mental status History of Present Illness: Abeba Phillips is a 77 y.o. female with a newly discovered left frontal brain mass on MRI imaging. She presents without family and has somewhat altered cognition as well as aphasia which makes obtaining the history somewhat difficult, but as best as I can understand, she fell last December around (states she tripped over the cat). Apparently at that time did not lose consciousness. States she was diagnosed with a stroke. When asked if she had any weakness/numbness, she states no. She states she was told the stroke was in the "middle" of her brain, not on one side or the other. She then states she has had issues with speaking and with right sided weakness that has been progressing over an undefinable time course. She has a history of lung cancer s/p resection in Decebm2015. Patient denies getting chemo or radiation for this. 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 She cannot state when this occurred ( initially answered weeks, then answered months). Note: she is aware that she was sent to for a newly discovered brain mass, but is disoriented to month and year. She endorses worsened night vision lately, and headaches which are not too severe but definitely worse at night. The headaches do not wake her up from sleep. She also reports increasing falls lately. No nausea/vomiting. Past Medical History: Past Medical History: Diagnosis Date Altered mental status Aphasia Brain tumor (HCC) CVA (cerebral vascular accident) (HCC) Facial droop Right Family hx of lung cancer HTN (hypertension) Hx of cancer of lung Hypothyroidism Microcytic anemia Periprosthetic hip fracture Right arm weakness Past Surgical History: Past Surgical History: Procedure Laterality Date FINGER AMPUTATION Left left thumb HIP REPLACEMENT LUNG REMOVAL, PARTIAL Social History: Social History Substance Use Topics Smoking status: Former Smoker Packs/day: 2.00 Types: Cigarettes Quit date: 12/14/2016 Smokeless tobacco: Not on file Comment: Long-term smoker; 2 packs per day Alcohol use No Family History: Family History Problem Relation Age of Onset Cancer-Lung Father Cancer-Lung Paternal Grandfather Allergies: Patient has no allergy information on record. Medications: No prescriptions prior to admission. Review of Systems: Full 10 point review of systems negative except for HPI. Physical Exam: Vital Signs: Last Filed In 24 Hours Vital Signs: 24 Hour Range BP: 168/92 (06/13 1932) Pulse: 81 (06/13 1932) SpO2: 96 % (06/13 1932) SpO2 Pulse: 74 (06/13 1932) BP: (168)/(92) Pulse: [81] SpO2: [96 %] General Appearance: No acute distress Skin: warm and dry Neck: supple Lungs: Stable on room air Heart: warm and well perfused Abdomen: Soft, non-tender Extremities: No edema, redness or tenderness in the calves or thighs Neurologic Exam: Mental Status: Awake, alert, oriented to self and [facility], disoriented to month and year (states April, and 2008, then corrects herself to 2018); Some expressive aphasia, repetition intact Pupils: Pupils equally round and reactive to light 3 mm to 2 mm Cranial Nerves: Right lower facial droop (mild); facial sensation symmetric; EOMI, tongue protrudes midline Motor: Right arm hemiparesis; right leg grossly equal to left leg; left arm intact Mild right pronator drift Sensation: Sensation intact to light touch throughout Gait: Deferred Cerebellar: No dysmetria on finger to nose Lab Tests: In Process Radiology and other Diagnostics Review: Reviewed. Left frontal brain mass; enhancing; cystic; 62X46 mm on axial views; 45 mm tall on sagittal view; on FLAIR sequences there is cerebral edema surrounding the mass, but also diffuse FLAIR signal hyperintensity throughout the white matter and periventricular regions; Assessment/Plan: Abeba Phillips is a 77 y.o. male with newly diagnosed left frontal brain tumor; likely metastasis given history of cancer and appearance on MRI. --Dex, Keppra --Oncology consult --will plan for surgical resection early next week Please call [phone] with questions Eduar Edouard MD [id number] ATTESTATION I personally performed the watt portions of the E/M visit, discussed case with resident and concur with resident documentation of history, physical exam, assessment, and treatment plan unless otherwise noted. Staff name: Federico Chakraborty MD Date: 06/14/2017 * Federico Chakraborty MD - 06/13/2017 6:45 PM CDT Formatting of this note may be different from the original. Neurosurgery History and Physical Examination Abeba Phillips Admission Date: 06/13/17 Chief Complaint: Altered mental status History of Present Illness: Abeba Phillips is a 77 y.o. female with a newly discovered left frontal brain mass on MRI imaging. She presents without family and has somewhat altered cognition as well as aphasia which makes obtaining the history somewhat difficult, but as best as I can understand, she fell last December around (states she tripped over the cat). Apparently at that time did not lose consciousness. States she was diagnosed with a stroke. When asked if she had any weakness/numbness, she states no. She states she was told the stroke was in the "middle" of her brain, not on one side or the other. She then states she has had issues with speaking and with right sided weakness that has been progressing over an undefinable time course. She has a history of lung cancer s/p resection in Decebmer 2015. Patient denies getting chemo or radiation for this. 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 She cannot state when this occurred ( initially answered weeks, then answered months). Note: she is aware that she was sent to for a newly discovered brain mass, but is disoriented to month and year. She endorses worsened night vision lately, and headaches which are not too severe but definitely worse at night. The headaches do not wake her up from sleep. She also reports increasing falls lately. No nausea/vomiting. Past Medical History: Past Medical History: Diagnosis Date Altered mental status Aphasia Brain tumor (HCC) CVA (cerebral vascular accident) (HCC) Facial droop Right Family hx of lung cancer HTN (hypertension) Hx of cancer of lung Hypothyroidism Microcytic anemia Periprosthetic hip fracture Right arm weakness Past Surgical History: Past Surgical History: Procedure Laterality Date FINGER AMPUTATION Left left thumb HIP REPLACEMENT LUNG REMOVAL, PARTIAL Social History: Social History Substance Use Topics Smoking status: Former Smoker Packs/day: 2.00 Types: Cigarettes Quit date: 12/14/2016 Smokeless tobacco: Not on file Comment: Long-term smoker; 2 packs per day Alcohol use No Family History: Family History Problem Relation Age of Onset Cancer-Lung Father Cancer-Lung Paternal Grandfather Allergies: Patient has no allergy information on record. Medications: No prescriptions prior to admission. Review of Systems: Full 10 point review of systems negative except for HPI. Physical Exam: Vital Signs: Last Filed In 24 Hours Vital Signs: 24 Hour Range BP: 168/92 (06/13 1932) Pulse: 81 (06/13 1932) SpO2: 96 % (06/13 1932) SpO2 Pulse: 74 (06/13 1932) BP: (168)/(92) Pulse: [81] SpO2: [96 %] General Appearance: No acute distress Skin: warm and dry Neck: supple Lungs: Stable on room air Heart: warm and well perfused Abdomen: Soft, non-tender Extremities: No edema, redness or tenderness in the calves or thighs Neurologic Exam: Mental Status: Awake, alert, oriented to self and [facility], disoriented to month and year (states April, and 2008, then corrects herself to 2018); Some expressive aphasia, repetition intact Pupils: Pupils equally round and reactive to light 3 mm to 2 mm Cranial Nerves: Right lower facial droop (mild); facial sensation symmetric; EOMI, tongue protrudes midline Motor: Right arm hemiparesis; right leg grossly equal to left leg; left arm intact Mild right pronator drift Sensation: Sensation intact to light touch throughout Gait: Deferred Cerebellar: No dysmetria on finger to nose Lab Tests: In Process Radiology and other Diagnostics Review: Reviewed. Left frontal brain mass; enhancing; cystic; 62X46 mm on axial views; 45 mm tall on sagittal view; on FLAIR sequences there is cerebral edema surrounding the mass, but also diffuse FLAIR signal hyperintensity throughout the white matter and periventricular regions; Assessment/Plan: Abeba Phillips is a 77 y.o. male with newly diagnosed left frontal brain tumor; likely metastasis given history of cancer and appearance on MRI. --Dex, Keppra --Oncology consult --will plan for surgical resection early next week Please call [phone] with questions Eduar Edouard MD [id number] ATTESTATION I personally performed the watt portions of the E/M visit, discussed case with resident and concur with resident documentation of history, physical exam, assessment, and treatment plan unless otherwise noted. Staff name: Federico Chakraborty MD Date: 06/14/2017 in this encounter Consult Notes * Ida Arevalo MD - 06/18/2017 1:48 PM CDT Associated Order(s): CONSULT RADIATION ONCOLOGY PHYSICIAN Formatting of this note may be different from the original. General Consult Note Admission Date: 06/13/2017 LOS: 5 days Reason for Consult: Brain mass concerning for malignancy Consult type: Opinion Assessment/Plan 77 y/o female with newly discovered left frontal brain mass. On MRI there was a large centrally necrotic periventricular and orbital left frontal mass with irregular enhancing rind measuring 6.2 x 4.7 x 4.7 cm, most consistent with GBM , with associated [id number] midline shift and mild transient or herniation. The patient was taken to the OR on 06/17/2017 for left frontal craniotomy with resection of tumor. Pathology is pending. We would recommend for the patient to followup with Radiation Oncology clinic outpatient. She lives in [place], [place] and prefers to be treated there if adjuvant therapy is warranted. Please call with any questions. Ida Arevalo PGY2 Radiation Oncology Resident Pager # [phone] History of Present Illness: Abeba Phillips is a 77 y.o. female with newly discovered left frontal brain mass. She presented with altered cognition, aphasia, word searching, falls, and lethargy. MRI showed a large centrally necrotic periventricular and orbital left frontal mass with irregular enhancing rind measuring 6.2 x 4.7 x 4.7 cm, most consistent with GBM. There was associated [id number] midline shift and mild transient or herniation. The patient was taken to the OR on 06/17/2017 for left frontal craniotomy with resection of tumor. Pathology is pending. Post op MRI showed postoperative appearance following left frontal lobe tumor resection with residual medial marginal enhancement. Per family, patient's cognition has improved since the tumor resection and has had less difficulty finding words. Her cognition seems to wax and wane. Per family, she has a h/o lung cancer which was resected in January 2016. Per notes, she also had left thumb skin cancer for which her left thumb was partially amputated. Past Medical History: Diagnosis Date Altered mental status Aphasia Brain tumor (HCC) CVA (cerebral vascular accident) (HCC) Facial droop Right Family hx of lung cancer HTN (hypertension) Hx of cancer of lung Hypothyroidism Microcytic anemia Periprosthetic hip fracture Right arm weakness Past Surgical History: Procedure Laterality Date FINGER AMPUTATION Left left thumb HIP REPLACEMENT LUNG REMOVAL, PARTIAL Social History Social History Marital status: Spouse name: Number of children: N/A Years of education: N/A Occupational History Retired nurse x35 years Social History Main Topics Smoking status: Former Smoker Packs/day: 2.00 Years: 30.00 Types: Cigarettes Quit date: 12/14/2016 Smokeless tobacco: Not on file Comment: Long-term smoker; 2 packs per day Alcohol use No Drug use: No Sexual activity: Not on file Other Topics Concern Service No Special Diet No Social History Narrative Lives with granddaughter, independent with ADLs and IADLs. Manages own finances , dresses selves, cooks, cleans. Granddaughter helps with chores, but works part time flexible clerk job. Family History Problem Relation Age of Onset Cancer-Lung Father Cancer-Lung Paternal Grandfather Allergies: Compazine [prochlorperazine edisylate]; Losartan; and Sulfa ( sulfonamide antibiotics) Scheduled Meds: dexamethasone (DECADRON) tablet 4 mg 4 mg Oral Q6H docusate (COLACE) capsule 100 mg 100 mg Oral BID hydroCHLOROthiazide (HYDRODIURIL) tablet 25 mg 25 mg Oral QAM8 insulin aspart U-100 (NOVOLOG FLEXPEN) injection PEN 0-7 Units 0-7 Units Subcutaneous ACHS levETIRAcetam (KEPPRA) tablet 500 mg 500 mg Oral BID lisinopril (PRINIVIL; ZESTRIL) tablet 40 mg 40 mg Oral QDAY milk of magnesia (CONC) oral suspension 10 mL 10 mL Oral QDAY senna/docusate (SENOKOT-S) tablet 1 tablet 1 tablet Oral BID Continuous Infusions: PRN and Respiratory Meds:acetaminophen Q4H PRN, HYDROcodone/acetaminophen Q4H PRN, ondansetron Q6H PRN, temazepam QHS PRN Review of Systems: CONSTITUTIONAL: Lethargy HEENT: No vision changes. NEUROLOGICAL: + headache, +confusion, +aphasia Other systems were negative. Vital Signs: Last Filed in 24 hours Vital Signs: 24 hour Range BP: 161/91 (06/19 799) Temp: 37.1 C (98.7 F) (06/19 799) Pulse: 74 (06/19 799) Respirations: 16 PER MINUTE (06/19 799) SpO2: 94 % (06/19 799) O2 Delivery: None (Room Air) (06/19 799) SpO2 Pulse: 73 (06/19 799) BP: (126-161)/(55-109) ABP: (145-172)/(52-67) Temp: [36.9 C (98.4 F)-37.1 C (98.8 F)] Pulse: [74-93] Respirations: [12 PER MINUTE-24 PER MINUTE] SpO2: [94 %-100 %] O2 Delivery: None (Room Air) Physical Exam: KPS 70% General: Patient in no acute distress. Alert and oriented x 2 (to name and place ) Head: Gauze over surgical incision site Eyes: Normal sclerae/conjunctivae. Heart: Regular rate and rhythm. Lungs: Clear to ausculation B/L. No increased work of breathing Abdomen: Non-distended Skin: No rashes or pallor Neurological: Cranial nerves 2-12 intact. Slight difficulty following directions. Musculoskeletal: No deformity. No range of motion deficit. Psychiatric: Normal mood and affect Lab/Radiology/Other Diagnostic Tests: 24-hour labs: Results for orders placed or performed during the hospital encounter of (from the past 24 hour(s)) POC GLUCOSE Collection Time: 06/17/17 8:44 PM Result Value Ref Range Glucose, POC 179 (H) 70 - 100 MG/DL BASIC METABOLIC PANEL Collection Time: 06/18/17 1:30 AM Result Value Ref Range Sodium 134 (L) 137 [...] 10.6 MG/DL eGFR Non >60 >60 mL/min eGFR >60 >60 mL/min CBC AND DIFF Collection Time: 06/18/17 1:30 AM Result Value Ref Range White Blood Cells 14.0 [...] Basophil Count 0.00 0 - 0.20 K/UL MAGNESIUM Collection Time: 06/18/17 1:30 AM Result Value Ref Range Magnesium 1.9 1.6 - 2.6 mg/dL PHOSPHORUS Collection Time: 06/18/17 1:30 AM Result Value Ref Range Phosphorus 3.0 2.0 - 4.0 MG/DL POC GLUCOSE Collection Time: 06/18/17 11:07 AM Result Value Ref Range Glucose, POC 186 (H) 70 - 100 MG/DL POC GLUCOSE Collection Time: 06/18/17 6:20 PM Result Value Ref Range Glucose, POC 184 (H) 70 - 100 MG/DL Mri Head W Contrast Result Date: 06/14/2017 EXAM: MRI BRAIN HISTORY: , brain mass, [...] measuring 6.2 x 4.7 x 4.7 cm (image 143 series 6 and coronal image 42). Mild involvement of the anterior left basal ganglia is noted. Persistent surrounding left frontal edema with 5 mm [id number]-[id number] frontal midline shift and mild transalar herniation. Persistent mild ventriculomegaly which is discordant to the degree of sulcal prominence. Patchy and confluent FLAIR hyperintensity throughout the supratentorial white matter and levar consistent with marked nonspecific white matter disease. Superimposed transependymal edema could be present. 1. Persistent large necrotic enhancing left frontal cerebral mass, most consistent with glioblastoma. 2. Associated wkge-hs-[id number] midline shift and mild transient or herniation. [...] PM. Dictated by Keven Norwood M.D. on 2017 12:06 PM. Mri Head Wo/w Contrast Result Date: 06/18/2017 EXAM: MRI BRAIN HISTORY: 77-year-old female with [...] margins as demonstrated on this series 13, #18-20. Subarachnoid enhancement is also present involving the anterior medial residual left frontal parenchyma coronal images 23-25. The 3-D postcontrast gradient images 102-106 demonstrated rim-enhancing tissue, which could represent residual neoplasm. The vascular flow-voids are unremarkable. Diffusion weighted imaging is not indicative of significant cytotoxic edema. Left mastoid effusion is present. Expected postoperative appearance following left frontal lobe tumor resection with residual medial marginal enhancement; close follow-up is recommended. Finalized by Villa Rascon MD on 06/18/2017 9:57 AM. Dictated by Villa Rascon MD on 06/18/2017 9:[address] Chest W Contrast Result Date: 06/15/2017 CT CHEST, ABDOMEN AND PELVIS Clinical Indication: [...] L4-L5 and L5-S1. No focal osseous lesions. CHEST: 1. Prior right upper lobectomy with [...] Dictated by Perla Seymour M.D. on 06/15/2017 10: [address] Abd/pelv W Contrast Result Date: 06/15/2017 CT CHEST, ABDOMEN AND PELVIS Clinical Indication: [...] L4-L5 and L5-S1. No focal osseous lesions. CHEST: 1. Prior right upper lobectomy with [...] Dictated by Perla Seymour M.D. on 06/15/2017 10: [address] Head External Imaging Result Date: 06/13/2017 This order has been auto finalized and does not contain a result. Mri Head External Imaging Result Date: 06/13/2017 This order has been auto finalized and does not contain a result. Ida Quintana-MD Derek Pager Associated attestation - Rianna Vazquez MD - 06/19/2017 9:31 AM CDT Formatting of this note may be different from the original. ATTESTATION I personally performed the watt portions of the E/M visit, discussed case with resident and concur with resident documentation of history, physical exam, assessment, and treatment plan unless otherwise noted. Staff name: Rianna Vazquez MD Date: 06/19/2017 * Vicki Blake MD - 06/18/2017 1:14 PM CDT Associated Order(s): CONSULT REHABILITATION MEDICINE PHYSICIAN Formatting of this note may be different from the original. Physical Medicine & Rehabilitation Consult Note Date of Service: 06/18/2017 Abeba Phillips is a 77 y.o. female. : 1940 Primary Insurance: MEDICARE Secondary Insurance: AET Tertiary Insurance: Financial Class: Medicare Date of Admission: 06/13/2017 Referring Physician: Federico Chakraborty MD Reason for Consult: evaluate for Post-Acute Rehab/Placement Precautions: Fall, Weight bearing Precautions: No precautions Active Problems Active Problems: Brain tumor (HCC) HTN (hypertension) Hx of cancer of lung Right arm weakness Facial droop CVA (cerebral vascular accident) (HCC) Aphasia Altered mental status Headache Severe malnutrition (HCC) Gait abnormality Impaired Mobility and ADLs Assessment & Plan Abeba Phillips is a 77 y.o. female admitted to [facility] on 06/13/2017 with the following issues: GBM s/p resection Impairments: cognitive impairments, loss of coordination, poor activity tolerance and weakness Activity Limitations: grooming, bathing, dressing - upper, dressing - lower, ambulation, comprehension and expression Participation Restrictions: unable to return home safely Post-acute care rehabilitation needs: likely acute inpatient rehabilitation -There will need to be oncologic plan per Oncology or RadOnc. If there is plan for intervention, then this should be completed prior to admission to Inpatient Rehab facility. -Rehabilitation goals of Supervision w/RW. Patient prefers to be closer to home in [place], [place] -Patient meets criteria with medical complexity and therapeutic goals for admission to acute inpatient rehab facility. -At this moment, patient will likely need ongoing PT/OT/UTILITIES ESTIMATOR AND DRAFTER therapy services. -Will continue to follow as patient becomes medically stable and progresses with therapy. Goals & Barriers Family / Patient Goals: return home with family supervision Mobility Goals: Supervision w/ RW Activities of Daily Living (ADLs) Goals: Supervision Cognition / Communication Goals: Supervision Barriers: Caregiver apprehension, High burden of care, Home accessibility and Poor family/social support Facilitators: good family / social support, patient motivation, improving strength / endurance and improving medical condition Rehabilitation Prognosis: Good Tolerance for three hours of therapy a day: Good Prior to the inpatient rehabilitation admission complete the following: *Endurance The patient will need to be clearly able to or reasonably expected to be able to endure 3 hours of constructive therapy per day. This will need to be determined prior to considering admission to acute inpatient rehabilitation. *Therapeutic goals The patient will need to have clear therapeutic goals with at least 2 out of 3 therapeutic disciplines, including PT, OT, and UTILITIES ESTIMATOR AND DRAFTER. This will need to be determined prior to considering admission to acute inpatient rehabilitation. Other recommendations (bowel, bladder, skin, pain, etc): PT, OT, ST consulted to address deficits as below Impaired gait/mobility: MARINE DIVER pt was independent at community level without assistive device Currently requiring Min A-RW 20' gait Will benefit from continued work with PT to address mobility deficits Impaired ADL: MARINE DIVER pt was independent Currently requiring Min A-LE dressing Will benefit from ongoing OT to address functional deficits Acute post-op pain: Patient would benefit from pre-treatment of pain prior to therapies and possibly scheduling Tylenol 650mg-1g TID while awake for improved pain and function. Thank you for this consultation. Please call our consult pager with questions or concerns. Vicki Blake MD Rehab Consult Pager: [phone] History of Present Illness Hospital Course: Abeba Phillips is a 77F PMH Lung CA, skin CA who presents / after multiple falls. Patient found to have brain mas consistent with GBM, now s /p craniotomy & resection 06/17 Dr. Chakraborty. Oncology & Radiation Oncology consulted for treatment plan. Pt is working with PT and OT to address functional and mobility deficits, rehab is now consulted for post-acute rehab/ placement recommendations. Past Medical History: Diagnosis Date Altered mental status Aphasia Brain tumor (HCC) CVA (cerebral vascular accident) (HCC) Facial droop Right Family hx of lung cancer HTN (hypertension) Hx of cancer of lung Hypothyroidism Microcytic anemia Periprosthetic hip fracture Right arm weakness Past Surgical History: Procedure Laterality Date FINGER AMPUTATION Left left thumb HIP REPLACEMENT LUNG REMOVAL, PARTIAL Social History Social History Marital status: Spouse name: Number of children: N/A Years of education: N/A Occupational History Retired nurse x35 years Social History Main Topics Smoking status: Former Smoker Packs/day: 2.00 Years: 30.00 Types: Cigarettes Quit date: 12/14/2016 Smokeless tobacco: Not on file Comment: Long-term smoker; 2 packs per day Alcohol use No Drug use: No Sexual activity: Not on file Other Topics Concern Service No Special Diet No Social History Narrative Lives with granddaughter, independent with ADLs and IADLs. Manages own finances , dresses selves, cooks, cleans. Granddaughter helps with chores, but works part time flexible clerk job. Family History Problem Relation Age of Onset Cancer-Lung Father Cancer-Lung Paternal Grandfather Scheduled Meds: dexamethasone (DECADRON) tablet 4 mg 4 mg Oral Q6H docusate (COLACE) capsule 100 mg 100 mg Oral BID hydroCHLOROthiazide (HYDRODIURIL) tablet 25 mg 25 mg Oral QAM8 insulin aspart U-100 (NOVOLOG FLEXPEN) injection PEN 0-7 Units 0-7 Units Subcutaneous ACHS levETIRAcetam (KEPPRA) tablet 500 mg 500 mg Oral BID lisinopril (PRINIVIL; ZESTRIL) tablet 40 mg 40 mg Oral QDAY milk of magnesia (CONC) oral suspension 10 mL 10 mL Oral QDAY senna/docusate (SENOKOT-S) tablet 1 tablet 1 tablet Oral BID Continuous Infusions: PRN and Respiratory Meds:acetaminophen Q4H PRN, HYDROcodone/acetaminophen Q4H PRN, ondansetron Q6H PRN, temazepam QHS PRN Allergies Allergen Reactions Compazine [Prochlorperazine Edisylate] UNKNOWN Losartan UNKNOWN Sulfa (Sulfonamide Antibiotics) UNKNOWN Prior Level of Function Self-Care/ADLs: Independent Mobility: independent at community level w/o assistive device Support: Patient currently lives alone Home Environment: Home Situation: Lives Alone (06/18/2017 10:00 AM) Patient Owned Equipment: Roller Walker;Single Point Cane (06/18/2017 10:00 AM) Type of Home: House (06/18/2017 11:00 AM) Entry Stairs: Ramp (06/18/2017 10:00 AM) No Data Recorded Comments: Daughter reported frequent falls prior to admission to due tumor (06/18 10:00 AM) No Data Recorded Current Level Of Function: PT Gait:Gait Distance: 20 feet Gait: Assistance Level: Minimal Assist, Safety Considerations, Management of Lines Gait: Assistive Device: Roller Walker Bed Mobility/Transfers Bed Mobility: Supine to Sit: Minimal Assist, Head of Bed Elevated, Assist with Trunk, Requires Extra Time OT ADL's Where Assessed: Chair LE Dressing Assist: Minimal Assist LE Dressing Deficits: Don/Doff R Sock, Verbal Cueing, Increased Time To Complete Toileting Assist: (Pt having horn removed upon entry ) Functional Transfer Assist: Stand By Assist Functional Transfer Deficits: Increased Time to Complete, Supervision/Safety, Steadying Comment: Pt ambulated in room with stand by assist and walker use. Pt presents with slow and nonreciprocal gait. Able to doff socks and don L sock with no assist. See vision note. UTILITIES ESTIMATOR AND DRAFTER COGNITIVE EVALUATION SUMMARY PRAGMATICS: BEHAVIOR: AUDITORY COMPREHENSION: Overall Severity*: WFL Comments*: Complex commands: 100% ; Complex yes/no: 100%; Sentence Repetition: 100%. Pt demonstrated auditory comprehension functional for participation in basic conversation as evidenced by discussion of prior level of function, wants/needs, and personal preferences. ORIENTATION: AUDITORY ATTENTION/WORKING MEMORY: AUDITORY MEMORY/SUSTAINED ATTENTION: NEW LEARNING: SEQUENCING/ORGANIZATION: PROBLEM SOLVING: REASONING: MATH/MONEY SKILLS: VISUAL PERCEPTUAL: SWALLOW EVALUATION SUMMARY Review of Systems All other systems reviewed and are negative. Physical Exam BP: 132/65 (06/18 2029) Temp: 37.4 C (99.4 F) (06/18 2029) Pulse: 106 (06/18 2029) Respirations: 19 PER MINUTE (06/18 2029) SpO2: 97 % (06/18 2029) O2 Delivery: None (Room Air) (06/18 2029) SpO2 Pulse: 75 (06/180) Body mass index is 21.42 kg/m. Gen: awake, alert, NAD HEENT: EOMI, MMM s/p craniotomy incision c/d/i Neck: Supple and symmetric Heart: Extremities are well perfused Lungs: respirations even and non-labored Abdomen: Soft, non-distended Psych: pleasant mood/appropriate affect Ext: No c/c/e MS: 4/5 BUE/BLE but noted apraxia when performing task upon command but patient able to move all extremities spontaneously. Neuro: Cranial Nerves Cranial Nerves 2-12 are grossly intact DTR's no hyperreflexia Babinski Downgoing Bilaterally Forde Negative bilaterally Finger to Nose Noted ataxia/dysmetria Upper Extremity Tone Normal Lower Extremity Tone Normal Upper Extremity Sensation Intact to light touch bilaterally Lower Extremity Sensation Intact to light touch bilaterally Clonus Negative Bilaterally Memory/Concentration Alert to person & year, not to location or month Intake/Output Summary (Last 24 hours) at 06/18/172226 Last data filed at 06/18/17 203 Gross per 24 hour Intake 1170 ml Output 1200 ml Net -30 ml Hematology: Lab Results Component Value Date HGB 11.4 06/18/2017 HCT 34.1 06/18/2017 PLTCT 266 06/18/2017 WBC 14.0 06/18/2017 NEUT 89 06/18/2017 ANC 12.50 06/18/2017 ALC 0.50 06/18/2017 DELANO 7 06/18/2017 AMC 0.90 06/18/2017 ABC 0.00 06/18/2017 MCV 72.4 06/18/2017 MCHC 33.4 06/18/2017 MPV 8.8 06/18/2017 RDW 14.8 06/18/2017 , Coagulation: Lab Results Component Value Date PTT 25.5 06/13/2017 INR 1.0 06/13/2017 and General Chemistry: Lab Results Component Value Date NA 134 06/18/2017 K 3.5 06/18/2017 CL 102 06/18/2017 GAP 9 06/18/2017 BUN 16 06/18/2017 CR 0.54 06/18/2017 GLU 181 06/18/2017 CA 9.1 06/18/2017 ALBUMIN 4.1 06/13/2017 OBSCA 1.17 06/17/2017 MG 1.9 06/18/2017 TOTBILI 0.5 06/13/2017 Radiology: Reviewed Vicki Blake MD Associated attestation - Ad Rand MD - 06/19/2017 1:06 PM CDT Rehabilitation Medicine Attending Physician Attestation: This is a late attestation as the patient was seen and examined on 06/18/2017. Agree with resident. Abeba Phillips is a pleasant 77 y.o. female with PMH of lung CA s/p lobectomy in 01/2016, HTN, OA, hip replacement and periprosthetic hip fracture, GERD, hypothyroidism, as well as apparent ?stroke in 12/2016 with progressive problems with communication/speech and right sided weakness who was admitted upon transfer from OSH on 06/13/2017 after originally presenting there worsening symptoms as above. She apparently underwent MRI Head at OSH which showed a left frontal brain mass and was transferred to [facility] for NS management. She has undergone left frontal craniotomy and resection of brain tumor by Dr. Chakraborty on 06/17/2017, and Oncology and Radiation Oncology teams have been consulted. She has resulting what seems to be right hemiparesis with generalized weakness, apraxia, aphasia, as well as significant functional deficits as noted. The patient seems to have medical complexity and goals with PT, OT, and UTILITIES ESTIMATOR AND DRAFTER for acute inpatient rehabilitation at this moment. Recommend continued therapies, while the primary team and consulting teams complete inpatient management of the patient. She will need close outpatient follow-up by Oncology and Radiation Oncology after discharge from rehabilitation. Discussed with patient and her family. Primary barriers would include: needs to clarify ongoing goals for therapies, need for clarification of appropriate disposition/realistic discharge plan (although it seems the patient's family is preferring facility closer to home with possible discharge to correction vs assisted living facility), and clinical stability with titration off any IV pain medications. Please have primary SWCM discuss with [facility] program proposals coordinator according to the patient's (and/or their family's) preference for placement. Will continue to follow for medical stability/appropriateness for discharge. Thank you for this consultation. Please call with questions/ concerns. I personally performed watt portions of the history and exam. I discussed the case with the resident and concur with the resident's documentation of history, physical assessment and treatment plan unless otherwise noted. Ad Rand MD * Erma Seymour, CERTIFIED TECHNICIAN-TECHNICAL DOCUMENT WRITER - 06/14/2017 1:25 AM CDT Associated Order(s): CONSULT NEURO CRITICAL CARE PHYSICIAN Formatting of this note may be different from the original. Neuro Critical Care Consult Abeba Samaniegoand Admission Date: 06/13/2017 LOS: 1 day Full Code ASSESSMENT/PLAN Patient Active Problem List Diagnosis Date Noted Headache 06/13/2017 Falls 06/13/2017 Brain tumor (HCC) HTN (hypertension) Hx of cancer of lung Right arm weakness Facial droop Right CVA (cerebral vascular accident) (HCC) Aphasia Altered mental status Abeba Phillips is a 77 y.o. male with significant medical history of R middle lung cancer s/p lobectomy in 2016, HTN, anemia, arthritis, gerd, hypothyroidism , urinary retention hx, and nicotine abuse who presents as a transfer from [place], [place] for newly diagnosed brain tumor. Hospital and ICU course: 06/13: Admit to NEICU for management of left frontal mass. Neuro: Left frontal mass Headaches Falls - External CT and MRI head 06/13: Left frontal mass with edema Plan - Decadron 4mg IV Q6 - Keppra 500mg IV BID - IV zofran 8mg q6h PRN for nausea - Neuro-ICU monitoring, neurochecks q 1 hrs Sedation/Pain Management: - Fentanyl 25-50 mcg q1h prn, Tylenol 650mg PO q4h prn - Assess for delirium daily Cardiac: HTN - SBP goal <160 - MAP goal > 65 Plan - Labetolol PRN Respiratory: Hx of R Lung cancer s/p right middle lobectomy 2016 Nicotine abuse - Stable on RA - PaO2 goal >100, Spo2 goal >95%, PCO2 goal 35-40 torr GI: - Feeding: Regular diet - neurosurgery bowel regimen, ensure daily BM Heme: Hx of chronic anemia - Hgb 11.6, Plt 292, INR 1.0 Plan - Daily CBC - assess for coagulopathy, maintain platelets above 100k, INR <1.5 ID: - Tmax afebrile - aim for normothermia, Temp <38.3 celsius, normothermia protocol if febrile Renal: Flask Carrier 0.49, BUN 14 Plan - Daily BMP - I/O balance even over 24 hrs - Aim for normovolemia Endocrine: Hypothyroidism - MARINE DIVER synthroid? - Blood glucose goal 100-180mg/dl Musk: Hx of left thumb ca s/p partial amputation FEN: - IVF: No IVFs - Magnesium goal >2.0, i-Navid goal > 1.0, Potassium goal >4.0 mEq/L Prophylaxis Review: A)GI: PPI/[id number] B) Lines: No C) Urinary Catheter: No D) Antibiotic Usage: No E) VTE: Mechanical prophylaxis; Sequential compression device F) Isolation: none G)Seizures: none I) Restraints: Patient assessed for need for restraints. Disposition/Family: ICU Primary service: NSG Consults: NCC SUBJECTIVE Chief Complaint: Nausea and vomiting History of Present Illness: Abeba Phillips is a 77 y.o. male female with a newly discovered left frontal brain mass on MRI imaging. The patient is not the greatest historian and no family is present at this time to report the recent course of events. When asked about her recent symptoms preceding her transfer to [facility], she reports some short term memory loss, headache and some nausea. The patient also reports a fall last December around (states she tripped over the cat). The daughter, Asia, reported to the nurse that her mother has been falling and most recently had difficulty stating her words. 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 She later was found to have lung cancer and is now s/p resection in January 2016. Past Medical History: Diagnosis Date Altered mental status Aphasia Brain tumor (HCC) CVA (cerebral vascular accident) (HCC) Facial droop Right Family hx of lung cancer HTN (hypertension) Hx of cancer of lung Hypothyroidism Microcytic anemia Periprosthetic hip fracture Right arm weakness Past Surgical History: Procedure Laterality Date FINGER AMPUTATION Left left thumb HIP REPLACEMENT LUNG REMOVAL, PARTIAL Family history reviewed; non-contributory Social History Social History Narrative No narrative on file Code Status: Full Code Decision Maker: Self Immunizations (includes history and patient reported): There is no immunization history on file for this patient. Allergies: Compazine [prochlorperazine edisylate]; Losartan; and Sulfa ( sulfonamide antibiotics) No prescriptions prior to admission. Review of Systems: A 14 point review of systems was negative except for: Neurological: positive for headaches OBJECTIVE Vital Signs: Last Filed Vital Signs: 24 Hour Range BP: 136/77 (06/13 2199) Temp: 37.1 C (98.7 F) (06/14 1999) Pulse: 89 (06/14 2219) Respirations: 17 PER MINUTE (06/14 2219) SpO2: 96 % (06/14 2219) O2 Delivery: None (Room Air) (06/13 2199) Height: 162.6 cm (64") (06/13 1932) Weight: 56.6 kg (124 lb 12.5 oz) (06/13 1932) BP: (136-168)/(75-98) Temp: [37 C (98.6 F)-37.1 C (98.7 F)] Pulse: [81-119] Respirations: [14 PER MINUTE-23 PER MINUTE] SpO2: [96 %-97 %] O2 Delivery: None (Room Air) Intensity Pain Scale 0-10 (Pain 1): (not recorded) Vitals: 06/13/171932 Weight: 56.6 kg (124 lb 12.5 oz) Artificial airway: None Ventilator/ Respiratory Therapy: No Vent weaning trial: Not applicable Lines: None Drains: None Physical Exam: Blood pressure 136/77, pulse 89, temperature 37.1 C (98.7 F), height 162.6 cm (64"), weight 56.6 kg (124 lb 12.5 oz), SpO2 96 %. Yung coma score: E: 4 - Opens eyes on own M: 6 - Follows simple motor commands V: 5 - Alert and oriented Neuro: Mental Status: alert, oriented to self and situation Cranial Nerves: Cranial nerves 2-12 INTACT. - Pupil exam: Size: 3 Reactivity: brisk - EOM: intact - Corneal reflex: R - present L - present - Grimace/facial movement: present - Cough: present - Gag reflex: present Motor: RUE: Strength: 5/5; RLE: Strength: 5/5; LUE: Strength: 5/5; LLE: Strength: 5/5; Sensory: normal Lungs: clear to auscultation bilaterally Pulmonary: Respiratory status: Stable Heart: regular rate and rhythm, S1, S2 normal, no murmur, click, rub or gallop Abdomen: soft, non-tender. Bowel sounds normal. No masses, no organomegaly Extremities: extremities normal, atraumatic, no cyanosis or edema Skin: Skin color, texture, turgor normal. No rashes or lesions Point of Care Testing: (Last 24 hours): Glucose: (!) 143 (06/13/172044) Lab Review: 24-hour labs: Results for orders placed or performed during the hospital encounter of (from the past 24 hour(s)) CBC AND DIFF Collection Time: 06/13/17 8:45 PM Result Value Ref Range White Blood Cells 10.8 4.5 - 11.0 K/UL RBC 4.95 4.4 - 5.5 M/UL Hemoglobin 11.6 (L) 13.5 - 16.5 GM/DL Hematocrit 35.9 (L) 40 - 50 % MCV 72.5 (L) 80 - 100 FL MCH 23.5 (L) 26 - 34 PG MCHC 32.4 32.0 - 36.0 G/DL RDW 14.8 11 - 15 % Platelet Count 292 150 - 400 K/UL MPV 8.4 7 - 11 FL Neutrophils 88 (H) 41 - 77 % Lymphocytes 6 (L) 24 - 44 % Monocytes 6 4 - 12 % Eosinophils 0 0 - 5 % Basophils 0 0 - 2 % Absolute Neutrophil Count 9.50 (H) 1.8 - 7.0 K/UL Absolute Lymph Count 0.70 (L) 1.0 - 4.8 K/UL Absolute Monocyte Count 0.70 0 - 0.80 K/UL Absolute Eosinophil Count 0.00 0 - 0.45 K/UL Absolute Basophil Count 0.00 0 - 0.20 K/UL PROTIME INR (PT) Collection Time: 06/13/17 8:45 PM Result Value Ref Range INR 1.0 0.8 - 1.2 PTT (APTT) Collection Time: 06/13/17 8:45 PM Result Value Ref Range APTT 25.5 21.0 - 39.0 SEC COMPREHENSIVE METABOLIC PANEL Collection Time: 06/13/17 8:45 PM Result Value Ref Range Sodium 136 (L) 137 - 147 MMOL/L Potassium 3.3 (L) 3.5 - 5.1 MMOL/L Chloride 102 98 - 110 MMOL/L Glucose 143 (H) 70 - 100 MG/DL Blood Urea Nitrogen 14 7 - 25 MG/DL Creatinine 0.49 0.4 - 1.24 MG/DL Calcium 9.9 8.5 - 10.6 MG/DL Total [...] - 12 eGFR Non >60 >60 mL/min eGFR >60 >60 mL/min IONIZED CALCIUM Collection Time: 06/13/17 8:45 PM Result Value Ref Range Ionized Calcium 1.17 1.0 - 1.3 MMOL/L MAGNESIUM Collection Time: 06/13/17 8:45 PM Result Value Ref Range Magnesium 1.6 1.6 - 2.6 mg/dL PHOSPHORUS Collection Time: 06/13/17 8:45 PM Result Value Ref Range Phosphorus 2.5 2.0 - 4.0 MG/DL Radiology and Other Diagnostic Procedures Review: Pertinent radiologic and diagnostic procedures reviewed. I spent 55 minutes managing the care of this patient. Ms Phillips is a critically ill female with a left frontal brain mass. Cares included: detailed neurologic and systems exam, medication review, laboratory data review and interpretation, electrolyte management, review of available imaging, DVT/PE prophylaxis review, diet review, activity review, and coordination of care with consulted teams Erma Seymour, HANDY-TECHNICAL DOCUMENT WRITER Date: 06/14/[phone] in this encounter Miscellaneous Notes * Case Mgmt DC Plan - Padma Lugo - 06/20/2017 2:07 PM CDT Formatting of this note may be different from the original. Case Management Progress Note NAME:Abeba Phillips :1940 AGE: 77 y.o. ADMISSION DATE: 06/13/2017 DAYS ADMITTED: LOS: 7 days Todays Date: 06/20/2017 Plan SW met with the neurosurgery team regarding POC and d/c planning. Mrs. Phillips has been accepted and is transferring to [facility] today by private vehicle. Medical oncology planning to follow up with pt's oncology team in [place] regarding pathology and recommendations. Interventions ? Support Pt's daughter is supportive and available to assist pt, once she is in [place]. Her daughter also lives in [place], and she is able to provide transportation and practical support for Mrs. Phillips. ? Info or Referral ? Discharge Planning Via [address] [address] [phone] ? Medication Needs ? Financial ? Legal ? Other Disposition ? Expected Discharge Date Expected Discharge Date: 06/20/17 ? Transportation Does the patient need discharge transport arranged?: No Transportation Name, Phone and Availability #1: [id number] ? Next Level of Care (Acute Psych discharges only) ? Discharge Disposition Durable Medical Equipment No service has been selected for the patient. Destination No service has been selected for the patient. Home Care No service has been selected for the patient. Dialysis/Infusion No service has been selected for the patient. Padma Lugo, [facility] [place] *[phone] * Care Plan - Carito Quiles RN - 06/20/2017 12:58 PM CDT Problem: Falls, High Risk of Goal: Absence of falls-Adult Patient Outcome: Goal Achieved Date Met: 06/20/17 Pt on fall risk until DC, assisted into wheelchair for transport Problem: Discharge Planning Goal: Participation in plan of care Outcome: Goal Achieved Date Met: 06/20/17 Pt. Educated on parameters of DC. Pt is voiding w/o difficulty, ambulating in the hester, and does not complain of un-managed pain. DC paperwork reviewed and all questions answered for the patient. IV DCd with cotton ball and band aid applied. Pt educated on prescriptions and all questions answered at time of DC. Belongings sheet reviewed with pt and signed, and pt denied any other questions at time of DC. Pt wheeled out via transport accompanied by family. Problem: Neurological Status, Impaired/Altered Goal: Progress toward maximizing functional outcomes Outcome: Goal Achieved Date Met: 06/20/17 Pt A&Ox3 to person, place, and situation at time of DC Problem: Mobility/Activity Intolerance Goal: Maximize functional ADL's and mobility outcomes Outcome: Goal Achieved Date Met: 06/20/17 Pt able to perform ADLs with assistance and tolerating well at time of DC Problem: Nutrition Deficit Goal: Adequate nutritional intake Outcome: Goal Achieved Date Met: 06/20/17 Pt on regular diet at time of DC * Case Mgmt DC Plan - Padma Lugo - 06/19/2017 9:51 AM CDT Formatting of this note may be different from the original. Case Management Progress Note NAME:Abeba Phillips :1940 AGE: 77 y.o. ADMISSION DATE: 06/13/2017 DAYS ADMITTED: LOS: 6 days Todays Date: 06/19/2017 Plan LEXY met with the neurosurgery team regarding POC and d/c planning. Ms. Phillips is recommended for IPR setting, and she and her family have expressed the desire to be closer to home. LEXY sent a referral to [facility] ([facility]) to review and clinically accept. LEXY hopeful that pt will be eligible to d/c tomorrow. LEXY sent an e-mail to the stain remover and radiation/oncology SW regarding follow up for pt, once the pathology is back. Interventions ? Support Pt's daughter is supportive and may be available to assist pt to and from appointments. SW to further investigate pt's social support today. LEXY called and spoke with Asia, pt's daughter, who is planning on coming tomorrow to take pt back to [place], Acute Inpatient Rehab. ? Info or Referral ? Discharge Planning Pt is a rehab candidate with complex medical goals for rehabilitation. LEXY sent a referral to [facility] in [place] for medical review and acceptance. LEXY will talk with pt and her daughter today about support and transportation, post IPR care. Via [address] [address] [phone] ? Medication Needs ? Financial ? Legal ? Other Disposition ? Expected Discharge Date Expected Discharge Date: 06/20/17 ? Transportation Does the patient need discharge transport arranged?: No Transportation Name, Phone and Availability #1: [email or web address] ? Next Level of Care (Acute Psych discharges only) ? Discharge Disposition Durable Medical Equipment No service has been selected for the patient. Destination No service has been selected for the patient. Home Care No service has been selected for the patient. Dialysis/Infusion No service has been selected for the patient. Pdama Lugo, [facility] *[phone] * Anesthesia Post Op Day 1 - Dave Macias SRNA - 06/18/2017 11:00 AM CDT Formatting of this note may be different from the original. Anesthesia Follow-Up Evaluation: Post-Procedure Day One Name: Abeba Phillips : 1940 Age: 77 y.o. Sex : female Procedure Date: 06/17/2017 Procedure: Procedure(s) with comments: CRANIOTOMY FOR LEFT FRONTAL TUMOR RESECTION WITH NAVIGATION - CASE LENGTH 4 HOURS, SUPINE, REQUEST 1430 START Physical Assessment Height: 162.6 cm (64") Weight: 56.6 kg (124 lb 12.5 oz) Vital Signs (Last Filed in 24 hours) BP: 161/91 (06/19 799) Temp: 37.1 C (98.7 F) (06/19 799) Pulse: 74 (06/19 799) Respirations: 16 PER MINUTE (06/19 799) SpO2: 94 % (06/19 799) O2 Delivery: None (Room Air) (06/19 799) SpO2 Pulse: 73 (06/19 799) Patient History Allergies Allergies Allergen Reactions Compazine [Prochlorperazine Edisylate] UNKNOWN Losartan UNKNOWN Sulfa (Sulfonamide Antibiotics) UNKNOWN Medications Scheduled Meds: ceFAZolin (ANCEF) IVP 1 g 1 g Intravenous Q8H* dexamethasone (DECADRON) tablet 4 mg 4 mg Oral Q6H docusate (COLACE) capsule 100 mg 100 mg Oral BID hydroCHLOROthiazide (HYDRODIURIL) tablet 25 mg 25 mg Oral QAM8 insulin aspart U-100 (NOVOLOG FLEXPEN) injection PEN 0-7 Units 0-7 Units Subcutaneous ACHS levETIRAcetam (KEPPRA) tablet 500 mg 500 mg Oral BID lisinopril (PRINIVIL; ZESTRIL) tablet 40 mg 40 mg Oral QDAY milk of magnesia (CONC) oral suspension 10 mL 10 mL Oral QDAY senna/docusate (SENOKOT-S) tablet 1 tablet 1 tablet Oral BID Continuous Infusions: PRN and Respiratory Meds:acetaminophen Q4H PRN, HYDROcodone/acetaminophen Q4H PRN, ondansetron Q6H PRN, temazepam QHS PRN Diagnostic Tests Hematology: Lab Results Component Value Date HGB 11.4 06/18/2017 HCT 34.1 06/18/2017 PLTCT 266 06/18/2017 WBC 14.0 06/18/2017 NEUT 89 06/18/2017 ANC 12.50 06/18/2017 ALC 0.50 06/18/2017 DELANO 7 06/18/2017 AMC 0.90 06/18/2017 EOSA 0 06/18/2017 ABC 0.00 06/18/2017 MCV 72.4 06/18/2017 MCH 24.2 06/18/2017 MCHC 33.4 06/18/2017 MPV 8.8 06/18/2017 RDW 14.8 06/18/2017 General Chemistry: Lab Results Component Value Date NA 134 06/18/2017 K 3.5 06/18/2017 CL 102 06/18/2017 CO2 23 06/18/2017 GAP 9 06/18/2017 BUN 16 06/18/2017 CR 0.54 06/18/2017 GLU 181 06/18/2017 CA 9.1 06/18/2017 ALBUMIN 4.1 06/13/2017 OBSCA 1.17 06/17/2017 MG 1.9 06/18/2017 TOTBILI 0.5 06/13/2017 PO4 3.0 06/18/2017 Coagulation: Lab Results Component Value Date PTT 25.5 06/13/2017 INR 1.0 06/13/2017 Follow-Up Assessment Patient location during evaluation: ICU Anesthetic Complications: Anesthetic complications: The patient did not experience any anesthestic complications. Pain: Score: 0 Management:adequate Level of Consciousness: awake and alert Hydration:acceptable Airway Patency: patent Respiratory Status: acceptable and room air Cardiovascular Status:acceptable Regional/Neuroaxial: Comments: Denies N/V, pain adequately controlled * Procedures (Immed Post or Bedside) - Minda Gonzalez MD - 06/17/2017 6:02 PM CDT Formatting of this note may be different from the original. Brief Operative Note Name: Abeba Phillips is a 77 y.o. 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 Estimated Blood Loss: 300 ml Specimen(s) Removed/Disposition: ID Type Source Tests Collected by Time Destination 1 : Left Frontal Tumor for Frozen Tissue Brain SURGICAL PATHOLOGY Federico Chakraborty MD 06/17/2017 1706 2 : Left Frontal Tumor for Routine Tissue Brain SURGICAL PATHOLOGY Federico Chakraborty MD 06/17/2017 1739 Complications: None Implants: Lyoplant and KLS Hugh plating system Drains: Horn Catheter: x mL Disposition: ICU - stable Minda Gonzalez MD Pager [phone] * Operative Report (DICTATED ONLY) - Federico Chakraborty MD - 06/17/2017 5:30 PM CDT [address] [id number] PATIENT NAME: ABEBA PHILLIPS MR#/PT#: [id number] Page 1 OPERATIVE REPORT DATE OF OPERATION: 06/17/2017 SURGEON: Federico Chakraborty MD CONTINUOUS IMPROVEMENT BLACK BELT(S): Minda Gonzalez M.D. PREOPERATIVE DIAGNOSIS: Left frontal brain tumor. POSTOPERATIVE DIAGNOSIS: Same. OPERATIVE PROCEDURE: Left frontal craniotomy, resection of brain tumor. ANESTHESIA: General. DESCRIPTION AND FINDINGS OF OPERATIVE PROCEDURE: Under general anesthesia, the patient's head was fixed in [place] head of operation and logistics. The patient was put in the supine position with the head turned to the right side. The left frontotemporal region was shaved using the clipper, scrubbed and draped in the regular fashion. Registration for navigation purpose was done using the MRI of the brain navigation protocol acquired before surgery. The navigation was used to plan the skin incision and craniotomy and optimize the access to the tumor. Then, a curvilinear skin incision was done. The incision started at the level of the zygoma anterior to the tragus, then it was curved behind the hairline until reaching the midline. The incision was deepened down to the bone and the myocutaneous flap was reflected using fish hooks. After that, multiple bur holes were done using the high-speed drill and a left frontal craniotomy was raised using the craniotome. Then, the dura was opened and reflected using 4-0 Nurolon sutures. At that point, we used the bipolar to coagulate the surface of the brain. Then, the surface of the brain was cut at the interface between the tumor and the normal looking brain tissue. Then, dissection was carried out at the interface and we proceeded with the dissection initially defining the posterior margin. Then, this was carried out superiorly and inferiorly and finally in the depth. At the deep margin of the resection, the frontal horn of the ventricle was opened. The tumor itself was very vascular and it had a necrotic center. After going around the tumor in all directions, we verified that we were around the enhancing component of the tumor by navigation. Then, the tumor was removed and sent to Pathology. Then, hemostasis was secured. After that, the closure was done using 4-0 Nurolon sutures. The dural closure was reinforced using a piece of Lyoplant that was put as onlay. The craniotomy flap was put back and fixed to the rest of the skull using miniplates and screws. The rest of the closure was done using 2-0 Vicryl for closure of the muscular layer and fascia, 2-0 Vicryl for closure of the galea and skin liz for closure of the skin. The patient tolerated the procedure well, then was transferred to the intensive care unit for further monitoring and care. ESTIMATED BLOOD LOSS: 100 mL. SPECIMENS REMOVED: Left frontal brain tumor. MD TAMELA Bradley / PALOMA /[id number] cc: - Federico Chakraborty MD * Case Mgmt DC Plan - Jane Garcia - 06/15/2017 10:41 AM CDT Case Management Admission Assessment NAME:Abeba Phillips :1940 AGE: 77 y.o. ADMISSION DATE: 06/13/2017 DAYS ADMITTED: LOS: 2 days Todays Date: 06/15/2017 Source of Information: patient's daughter (patient with intermittent confusion and resting) Plan Plan: CM Assessment, Assist PRN with SW/NCM Services, Discharge Planning for Facility Anticipated Discharge planning ongoing Daughter anticipating placement needs and has already begun looking into SNF at [facility] and [facility]. OR Saturday PT/OT/ST Patient lives alone and was independent prior to admission. Patient is a retired ER nurse. History of CVA. She has had a quick decline over the past 2 weeks and has been getting more confused. She has also been falling since December. She has been managing her own care needs and medications. Patient uses a cane. Daughter lives in [place] and is able to help patient at discharge but she anticipates need for placement. SW will follow up post operatively to reasess for SNF needs. SW discussed SNF and benefits. Daughter has already looked into the locations above in [place]. Support provided to daughter. She is tearful and concerned. She is asking to talk with MD. RN paged MD to notify them of request. Patient Address/Phone [address] [facility] [phone] (home) Emergency Contact Extended Emergency Contact Information Primary Emergency Contact: Asia Phillips Mobile Relation: None Healthcare Directive Healthcare Directive: Yes, patient has a healthcare directive Type of Healthcare Directive: Durable power of mergers and acquisitions attorney for healthcare Would patient like to fill out a (a new) Healthcare Directive?: N/A DPOA onfile naming daughter. Transportation Does the patient need discharge transport arranged?: No Transportation Name, Phone and Availability #1: [id number] Expected Discharge Date Expected Discharge Date: 06/20/17 Living Situation Prior to Admission ? Living Arrangements Type of Residence: Home, independent Living Arrangements: Alone Bathroom Shower / Tub: Tub/Shower Unit, Walk-in Shower How many levels in the residence?: 1 Can patient live on one level if needed?: Yes Does residence have entry and/or side stairs?: Yes (2 steps or ramp) Assistance needed prior to admit or anticipated on discharge: No ? Level of Function Prior level of function: Independent ? Cognitive Abilities Cognitive Abilities: Alert and Oriented Financial Resources ? Coverage Primary Insurance: Medicare Secondary Insurance: Commercial insurance ([employer]) Additional Coverage: RX (Denies problems obtaining medications. ) ? Source of Income Source Of Income: SSI ? Financial Assistance Needed? no Psychosocial Needs ? Mental Health Mental Health History: No (Daughter states patient seems depressed due to all her confusion and medical complexity. LEXY and MD to follow to address needs and support services. ) ? Substance Use History ? Other Patient is a retired ER nurse of 30 years. Current/Previous Services ? PCP Jeremy Graf in [place] ? Pharmacy [facility] [address] [place] [address] [id number] [facility] [id number] ? Durable Medical Equipment Durable Medical Equipment at home: Roller Walker, Single Point Cane ? Home Health Receiving home health: In the past Agency name: [facility] Would patient use this agency again?: Yes ? Hemodialysis or Peritoneal Dialysis Undergoing hemodialysis or peritoneal dialysis: No ? Tube/Enteral Feeds Receive tube/enteral feeds: No ? Infusion Receive infusions: No ? Private Duty Private duty help used: No ? Home and Community Based Services Home and community based services: No ? Clint White Clint White: N/A ? Hospice Hospice: No ? Outpatient Therapy PT: In the past When did patient receive care?: After hip surgery Name of rehab location/group: [facility] Would patient return for future services?: Yes OT: In the past When did patient receive care?: After Hip Surgery Name of rehab location/group: [facility] Would patient return for future services?: Yes ? [facility] Facility/Correction SNF: No NH: No ? Inpatient Rehab IPR: No ? [facility] LTACH: No ? Acute Hospital Stay Acute Hospital Stay: In the past Weekend SW: Jane Garcia LMSW [phone] (phone) [phone] (pager) in this encounter Plan of Treatment Name Priority Associated Diagnoses Date/Time UA REFLEX CULTURE LABEL Routine 06/14/2017 8:56 AM CDT UA REFLEX CULTURE LABEL Routine 06/20/2017 2:10 AM CDT Name Priority Associated Diagnoses Order Schedule SURGICAL PATHOLOGY Routine Brain tumor (HCC) ONCE for 1 Occurrences starting 06/17/2017 as of this encounter Procedures Procedure Name Priority Date/Time Associated Diagnosis Comments CRANIOTOMY FOR LEFT 06/17/2017 Brain tumor (HCC) FRONTAL TUMOR RESECTION 2:30 PM CDT WITH NAVIGATION CONSULT IV THERAPY TEAM Routine 06/13/2017 7:58 PM CDT in this encounter Results * POC GLUCOSE (06/20/2017 11:57 AM) Component Value Ref Range Glucose, POC 172 (H) 70 - 100 MG/DL Specimen Performing Laboratory MAIN LAB [address] [place] [address] * POC GLUCOSE (06/20/2017 7:28 AM) Component Value Ref Range Glucose, POC 146 (H) 70 - 100 MG/DL Specimen Performing Laboratory MAIN LAB [address] [place] [address] * POC GLUCOSE (06/20/2017 2:26 AM) Component Value Ref Range Glucose, POC 180 (H) 70 - 100 MG/DL Specimen Performing Laboratory MAIN LAB [address] [place] [address] * URINALYSIS MICROSCOPIC REFLEX TO CULTURE (06/20/2017 2:10 AM) Component Value Ref Range WBCs,UA 0-2 0 - 2 /HPF RBCs,UA NONE 0 - 3 /HPF Comment,UA Urine submitted for reflex culture if criteria are met:WBC>10, positive nitrite and/or >=1+ leukocyte esterase. If quantity is not sufficient, an addendum will follow. Specimen Performing Laboratory Urine [facility] [address] [place] [address] * URINALYSIS DIPSTICK REFLEX TO CULTURE (06/20/2017 2:10 AM) Component Value Ref Range Color,UA STRAW Turbidity,UA CLEAR CLEAR-CLEAR Specific Nicholls-Urine 1.008 1.003 - 1.035 pH,UA 7.0 5.0 - 8.0 Protein,UA NEG NEG-NEG Glucose,UA 1+ (A) NEG-NEG Ketones,UA NEG NEG-NEG Bilirubin,UA NEG NEG-NEG Blood,UA NEG NEG-NEG Urobilinogen,UA NORMAL NORM-NORMAL Nitrite,UA NEG NEG-NEG Leukocytes,UA NEG NEG-NEG Urine Ascorbic Acid, UA NEG NEG-NEG Specimen Performing Laboratory Urine MAIN LAB [address] [place] [address] * POC GLUCOSE (06/19/2017 8:15 PM) Component Value Ref Range Glucose, POC 142 (H) 70 - 100 MG/DL Specimen Performing Laboratory [facility] [address] [place] [address] * POC GLUCOSE (06/19/2017 6:09 PM) Component Value Ref Range Glucose, POC 186 (H) 70 - 100 MG/DL Specimen Performing Laboratory [facility] [address] [place] [address] * POC GLUCOSE (06/19/2017 12:38 PM) Component Value Ref Range Glucose, POC 261 (H) 70 - 100 MG/DL Specimen Performing Laboratory [facility] [address] [place] [address] * POC GLUCOSE (06/19/2017 8:28 AM) Component Value Ref Range Glucose, POC 151 (H) 70 - 100 MG/DL Specimen Performing Laboratory [facility] [address] [place] [address] * POC GLUCOSE (06/19/2017 2:42 AM) Component Value Ref Range Glucose, POC 221 (H) 70 - 100 MG/DL Specimen Performing Laboratory [address] [address] * POC GLUCOSE (06/18/2017 8:33 PM) Component Value Ref Range Glucose, POC 238 (H) 70 - 100 MG/DL Specimen Performing Laboratory [facility] [address] [place] [address] * POC GLUCOSE (06/18/2017 6:20 PM) Component Value Ref Range Glucose, POC 184 (H) 70 - 100 MG/DL Specimen Performing Laboratory [address] [address] * POC GLUCOSE (06/18/2017 11:07 AM) Component Value Ref Range Glucose, POC 186 (H) 70 - 100 MG/DL Specimen Performing Laboratory [facility] [address] [place] [address] * PHOSPHORUS (06/18/2017 1:30 AM) Component Value Ref Range Phosphorus 3.0 2.0 - 4.0 MG/DL Specimen Performing Laboratory Blood [facility] [address] [place] [address] * MAGNESIUM (06/18/2017 1:30 AM) Component Value Ref Range Magnesium 1.9 1.6 - 2.6 mg/dL Specimen Performing Laboratory Blood [facility] [address] [place] [address] * CBC AND DIFF (06/18/2017 1:30 AM) Component Value Ref Range White Blood Cells [...] - 0.20 K/UL Specimen Performing Laboratory Blood [facility] [address] [place] [address] * BASIC METABOLIC PANEL (06/18/2017 1:30 AM) Component Value Ref Range Sodium 134 (L) [...] Performing Laboratory Blood [facility] MAIN [facility] [address] [place] [address] * MRI HEAD WO/W CONTRAST (06/18/2017 12:38 [...] Rascon MD on 06/18/2017 9:31 AM. * POC GLUCOSE (06/17/2017 8:44 PM) Component Value Ref Range Glucose, POC 179 (H) 70 - 100 MG/DL Specimen Performing Laboratory MAIN LAB [address] [place] [address] * SURGICAL PATHOLOGY (06/17/2017 5:11 PM) Component Value Ref Range PATHOLOGY REPORT [facility] [email or web address] Department of Pathology and Laboratory Medicine [address] [place] [address] Surgical Pathology Office:[phone]:[phone] SURGICAL PATHOLOGY REPORT NAME: ABEBA PHILLIPS SURG PATH #: [id number] MR #: [id number] SPECIMEN CLASS: [facility] BILLING #: [id number] ALT ID #:LOCATION: [facility] DATE OF PROCEDURE: 06/17/2017 AGE:77 SEX: F DATE RECEIVED: 06/17/2017 : 1940TIME RECEIVED:17:11 PHYSICIAN: FEDERICO CHAKRABORTY MD DATE OF REPORT: 06/20/2017 COPY TO:DATE OF PRINTIN06/20/2017 ################################################## ###################### Final Diagnosis: A. 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 B. Brain, "left frontal tumor", left frontal craniotomy: GLIOBLASTOMA, IDH1 [id number], WHO GRADE IV See comment. Comment: The [...] <1% in patients aged >54 years. (Bambi Coffman, et al 2014, Neuro Oncol [phone]. Pursuant to the Sales Order Administrator Program at the [facility] Pathology Department, selected slides from this [...] material indicated in this report. +++ +++ lonnie/06/18/2017 ################################################## ###################### Material Received: A: left frontal [...] the remnant being placed in cassette A1FS. Chore Tender sections are submitted in cassettes A2-A7. ([facility]) B. received in formalin, labeled with the patient's name and "left frontal tumor" is a regular, unoriented, portion of brain measuring 5.6 x 4.1 x 3.2 cm. Surgical resection margins inked block the neural surface is garcia-tomlinson with visible sulci and gyri. Specimen is serially sectioned to reveal a friable, garcia-yellow cut surface. Represent sections of the specimen are submitted in cassettes B1-B5.([facility]) /06/17/2017 Intraoperative Consultation: A1FS, smears, brain, "left frontal [...] of Pathology and Laboratory Medicine of the [facility] ([employer]) in compliance with [...] of Pathology and Laboratory Medicine of the [facility].It has not been cleared or approved by the FDA.The FDA has determined that such clearance or approval is not necessary. Professional services performed by [facility], [facility], at [address] [place] [address] Specimen Performing Laboratory LAB RESULTS * LACTIC ACID (BG - RAPID LACTATE) (06/17/2017 3:50 PM) Component Value Ref Range Lactic Acid,BG 1.2 0.5 - 2.0 MMOL/L Specimen Performing Laboratory Blood [facility] [address] [place], [place] [id number] * POTASSIUM, BG (06/17/2017 3:50 PM) Component Value Ref Range Potassium 3.4 (L) 3.5 - 5.1 MMOL/L Specimen Performing Laboratory Blood [facility] [address] [place], [place] [id number] * SODIUM,BG (06/17/2017 3:50 PM) Component Value Ref Range Sodium 130 (L) 137 - 147 MMOL/L Specimen Performing Laboratory Blood [facility] [address] [place] [address] * IONIZED CALCIUM,BG (06/17/2017 3:50 PM) Component Value Ref Range Ionized Calcium 1.17 1.0 - 1.3 MMOL/L Specimen Performing Laboratory Blood [facility] [address] [place] [address] * GLUCOSE,BG (06/17/2017 3:50 PM) Component Value Ref Range Glucose 132 (H) 70 - 100 MG/DL Specimen Performing Laboratory Blood [facility] [address] [place], [place] [id number] * BLOOD GASES, ARTERIAL (06/17/2017 3:50 PM) Component Value Ref Range pH-Arterial 7.39 7.35 - 7.45 pCO2-Arterial 37 35 - 45 MMHG pO2-Arterial 364 (H) 80 - 100 MMHG Base Deficit-Arterial 2.5 MMOL/L O2 Sat-Arterial 99.7 (H) 95 - 99 % Adbrlcejywh-JQI-Xdv 22.4 21 - 28 MMOL/L Specimen Performing Laboratory Blood, arterial - Blood [facility] [address] [place], [place] [id number] * HEMOGLOBIN & HEMATOCRIT, BG (06/17/2017 3:50 PM) Component Value Ref Range Hemoglobin BG 11.9 (L) 12.0 - 15.0 GM/DL Hematocrit BG 36.8 36 - 45 % Specimen Performing Laboratory Blood [facility] [address] [place], [place] [id number] * POC GLUCOSE (06/17/2017 12:56 PM) Component Value Ref Range Glucose, POC 140 (H) 70 - 100 MG/DL Specimen Performing Laboratory [facility] [address] [place], [place] [id number] * POC GLUCOSE (06/17/2017 7:42 AM) Component Value Ref Range Glucose, POC 158 (H) 70 - 100 MG/DL Specimen Performing Laboratory [facility] [address] [place], [place] [id number] * PHOSPHORUS (06/17/2017 5:06 AM) Component Value Ref Range Phosphorus 3.3 2.0 - 4.0 MG/DL Specimen Performing Laboratory Blood [facility] [address] [place], [place] [id number] * MAGNESIUM (06/17/2017 5:06 AM) Component Value Ref Range Magnesium 2.0 1.6 - 2.6 mg/dL Specimen Performing Laboratory Blood [facility] [address] [place], [place] [id number] * CBC AND DIFF (06/17/2017 5:06 AM) Component Value Ref Range White Blood Cells 6.3 4.5 - 11.0 K/UL RBC 5.22 (H) 4.0 - 5.0 M/UL Hemoglobin 12.3 12.0 - 15.0 GM/DL Hematocrit 36.6 36 - 45 % MCV 70.1 (L) 80 - 100 FL MCH 23.6 (L) 26 - 34 PG MCHC 33.6 32.0 - 36.0 G/DL RDW 14.8 11 - 15 % Platelet Count 274 150 - 400 K/UL MPV 9.2 7 - 11 FL Neutrophils 81 (H) 41 - 77 % Lymphocytes 11 (L) 24 - 44 % Monocytes 8 4 - 12 % Eosinophils 0 0 - 5 % Basophils 0 0 - 2 % Absolute Neutrophil Count 5.10 1.8 - 7.0 K/UL Absolute Lymph Count 0.70 (L) 1.0 - 4.8 K/UL Absolute Monocyte Count 0.50 0 - 0.80 K/UL Absolute Eosinophil Count 0.00 0 - 0.45 K/UL Absolute Basophil Count 0.00 0 - 0.20 K/UL Specimen Performing Laboratory Blood MAIN LAB [address] [place] [address] * BASIC METABOLIC PANEL (06/17/2017 5:06 AM) Component Value Ref Range Sodium 131 (L) 137 - 147 MMOL/L Potassium 3.8 3.5 - 5.1 MMOL/L Chloride 97 (L) 98 - 110 MMOL/L CO2 28 21 - 30 MMOL/L Anion Gap 6 3 - 12 Glucose 169 (H) 70 - 100 MG/DL Blood Urea Nitrogen 26 (H) 7 - 25 MG/DL Creatinine 0.59 0.4 - 1.00 MG/DL Calcium 9.4 8.5 - 10.6 MG/DL eGFR Non >60 [...] questions. Specimen Performing Laboratory Blood MAIN LAB [address] [place] [address] * POC GLUCOSE (06/16/2017 9:09 PM) Component Value Ref Range Glucose, POC 157 (H) 70 - 100 MG/DL Specimen Performing Laboratory MAIN LAB [address] [place] [address] * POC GLUCOSE (06/16/2017 6:01 PM) Component Value Ref Range Glucose, POC 142 (H) 70 - 100 MG/DL Specimen Performing Laboratory MAIN LAB [address] [place] [address] * POC GLUCOSE (06/16/2017 11:34 AM) Component Value Ref Range Glucose, POC 167 (H) 70 - 100 MG/DL Specimen Performing Laboratory MAIN LAB [address] [place] [address] * POC GLUCOSE (06/16/2017 8:41 AM) Component Value Ref Range Glucose, POC 189 (H) 70 - 100 MG/DL Specimen Performing Laboratory [facility] [address] [place] [address] * BLOOD TYPE CONFIRMATION - ORDER ONLY IF REQUESTED BY LAB (06/16/2017 6:20 AM) Component Value Ref Range ABO/RH(D) O POS Specimen Performing Laboratory Blood [facility] [address] [place] [address] * TYPE & CROSSMATCH (06/16/2017 5:55 AM) Component Value Ref Range Units Ordered 2 Crossmatch Expires 06/19/2017 Record Check 2ND TYPE REQUIRED ABO/RH(D) O POS Antibody Screen NEG Electronic Crossmatch YES Specimen Performing Laboratory Blood MAIN LAB [address] [place], [place] [id number] * PHOSPHORUS (06/16/2017 4:38 AM) Component Value Ref Range Phosphorus 3.4 2.0 - 4.0 MG/DL Specimen Performing Laboratory Blood [facility] [address] [place] [address] * MAGNESIUM (06/16/2017 4:38 AM) Component Value Ref Range Magnesium 2.0 1.6 - 2.6 mg/dL Specimen Performing Laboratory Blood MAIN LAB [address] [place], [place] [id number] * CBC AND DIFF (06/16/2017 4:38 AM) Component Value Ref Range White Blood Cells 6.9 4.5 - 11.0 K/UL RBC 5.01 (H) 4.0 - 5.0 M/UL Hemoglobin 12.0 12.0 - 15.0 GM/DL Hematocrit 35.3 (L) 36 - 45 % MCV 70.3 (L) 80 - 100 FL MCH 24.0 (L) 26 - 34 PG MCHC 34.1 32.0 - 36.0 G/DL RDW 15.1 (H) 11 - 15 % Platelet Count 276 150 - 400 K/UL MPV 8.9 7 - 11 FL Neutrophils 85 (H) 41 - 77 % Lymphocytes 9 (L) 24 - 44 % Monocytes 6 4 - 12 % Eosinophils 0 0 - 5 % Basophils 0 0 - 2 % Absolute Neutrophil Count 5.90 1.8 - 7.0 K/UL Absolute Lymph Count 0.70 (L) 1.0 - 4.8 K/UL Absolute Monocyte Count 0.40 0 - 0.80 K/UL Absolute Eosinophil Count 0.00 0 - 0.45 K/UL Absolute Basophil Count 0.00 0 - 0.20 K/UL Specimen Performing Laboratory Blood MAIN LAB [address] [place] [address] * BASIC METABOLIC PANEL (06/16/2017 4:38 AM) Component Value Ref Range Sodium 132 (L) 137 - 147 MMOL/L Potassium 3.9 3.5 - 5.1 MMOL/L Chloride 99 98 - 110 MMOL/L CO2 27 21 - 30 MMOL/L Anion Gap 6 3 - 12 Glucose 182 (H) 70 - 100 MG/DL Blood Urea Nitrogen 24 7 - 25 MG/DL Creatinine 0.61 0.4 - 1.00 MG/DL Calcium 9.4 8.5 - 10.6 MG/DL eGFR Non >60 [...] questions. Specimen Performing Laboratory Blood MAIN LAB [address] [place] [address] * POC GLUCOSE (06/15/2017 8:22 PM) Component Value Ref Range Glucose, POC 166 (H) 70 - 100 MG/DL Specimen Performing Laboratory MAIN LAB [address] [place] [address] * POC GLUCOSE (06/15/2017 4:56 PM) Component Value Ref Range Glucose, POC 146 (H) 70 - 100 MG/DL Specimen Performing Laboratory MAIN LAB [address] [place] [address] * POC GLUCOSE (06/15/2017 12:28 PM) Component Value Ref Range Glucose, POC 141 (H) 70 - 100 MG/DL Specimen Performing Laboratory MAIN LAB [address] [place] [address] * CT ABD/PELV W CONTRAST (06/15/2017 8:23 [...] Seymour M.D. on 06/15/2017 10:04 AM. * POC GLUCOSE (06/15/2017 7:52 AM) Component Value Ref Range Glucose, POC 158 (H) 70 - 100 MG/DL Specimen Performing Laboratory MAIN LAB [address] [place] [address] * PHOSPHORUS (06/15/2017 4:16 AM) Component Value Ref Range Phosphorus 2.9 2.0 - 4.0 MG/DL Specimen Performing Laboratory Blood MAIN LAB [address] [place] [address]771 * MAGNESIUM (06/15/2017 4:16 AM) Component Value Ref Range Magnesium 2.1 1.6 - 2.6 mg/dL Specimen Performing Laboratory Blood MAIN LAB [address] [place] [address] * CBC AND DIFF (06/15/2017 4:16 AM) Component Value Ref Range White Blood Cells 6.8 4.5 - 11.0 K/UL RBC 5.10 (H) 4.0 - 5.0 M/UL Hemoglobin 12.0 12.0 - 15.0 GM/DL Hematocrit 36.0 36 - 45 % MCV 70.6 (L) 80 - 100 FL MCH 23.6 (L) 26 - 34 PG MCHC 33.4 32.0 - 36.0 G/DL RDW 15.2 (H) 11 - 15 % Platelet Count 285 150 - 400 K/UL MPV 9.0 7 - 11 FL Neutrophils 84 (H) 41 - 77 % Lymphocytes 11 (L) 24 - 44 % Monocytes 5 4 - 12 % Eosinophils 0 0 - 5 % Basophils 0 0 - 2 % Absolute Neutrophil Count 5.70 1.8 - 7.0 K/UL Absolute Lymph Count 0.80 (L) 1.0 - 4.8 K/UL Absolute Monocyte Count 0.30 0 - 0.80 K/UL Absolute Eosinophil Count 0.00 0 - 0.45 K/UL Absolute Basophil Count 0.00 0 - 0.20 K/UL Specimen Performing Laboratory Blood MAIN LAB [address] [place] [address] * BASIC METABOLIC PANEL (06/15/2017 4:16 AM) Component Value Ref Range Sodium 133 (L) 137 - 147 MMOL/L Potassium 4.0 3.5 - 5.1 MMOL/L Chloride 102 98 - 110 MMOL/L CO2 23 21 - 30 MMOL/L Anion Gap 8 3 - 12 Glucose 185 (H) 70 - 100 MG/DL Blood Urea Nitrogen 19 7 - 25 MG/DL Creatinine 0.45 0.4 - 1.00 MG/DL Calcium 9.5 8.5 - 10.6 MG/DL eGFR Non >60 [...] questions. Specimen Performing Laboratory Blood MAIN LAB [address] [place], [place] [id number] * POC GLUCOSE (06/14/2017 8:37 PM) Component Value Ref Range Glucose, POC 143 (H) 70 - 100 MG/DL Specimen Performing Laboratory MAIN LAB [address] [place] [address] * POC GLUCOSE (06/14/2017 6:55 PM) Component Value Ref Range Glucose, POC 151 (H) 70 - 100 MG/DL Specimen Performing Laboratory MAIN LAB [address] [place] [address] * POC GLUCOSE (06/14/2017 11:51 AM) Component Value Ref Range Glucose, POC 151 (H) 70 - 100 MG/DL Specimen Performing Laboratory MAIN LAB [address] [id number] * MRI HEAD W CONTRAST (06/14/2017 11:00 AM) Specimen Performing Laboratory [facility] RAD RESULTS Impressions 1. Persistent large necrotic enhancing left frontal cerebral mass, most consistent with glioblastoma. 2. Associated [id number] midline shift and mild transient or herniation. [...] mass, most consistent with glioblastoma. 2. Associated [id number] midline shift and mild transient or herniation. [...] [place]wood M.D. on 06/14/2017 12:06 PM. * URINALYSIS MICROSCOPIC REFLEX TO CULTURE (06/14/2017 8:56 AM) Component Value Ref Range WBCs,UA 0-2 0 - 2 /HPF RBCs,UA 0-2 0 - 3 /HPF Comment,UA Urine submitted for reflex culture if criteria are met:WBC>10, positive nitrite and/or >=1+ leukocyte esterase. If quantity is not sufficient, an addendum will follow. Hyaline Cast 0-2 Specimen Performing Laboratory Urine MAIN LAB [address] [place] [id number] * URINALYSIS DIPSTICK REFLEX TO CULTURE (06/14/2017 8:56 AM) Component Value Ref Range Color,UA YELLOW Turbidity,UA CLEAR CLEAR-CLEAR Specific Nicholls-Urine 1.013 1.003 - 1.035 pH,UA 7.0 5.0 - 8.0 Protein,UA NEG NEG-NEG Glucose,UA 3+ (A) NEG-NEG Ketones,UA TRACE (A) NEG-NEG Bilirubin,UA NEG NEG-NEG Blood,UA NEG NEG-NEG Urobilinogen,UA INCREASED (A) NORM-NORMAL Nitrite,UA NEG NEG-NEG Leukocytes,UA NEG NEG-NEG Urine Ascorbic Acid, UA NEG NEG-NEG Specimen Performing Laboratory Urine [facility] [address] [place] [id number] * POC GLUCOSE (06/14/2017 6:32 AM) Component Value Ref Range Glucose, POC 177 (H) 70 - 100 MG/DL Specimen Performing Laboratory MAIN LAB [address] [place] [id number] * HEMOGLOBIN A1C (06/14/2017 3:25 AM) Component Value Ref Range Hemoglobin A1C 6.3 (H) 4.0 - 6.0 % Comment: The ADA recommends that most patients with type 1 and type 2 diabetes maintain an A1c level <7%. Specimen Performing Laboratory MAIN LAB [address] [place], [place] [id number] * IONIZED CALCIUM (06/14/2017 3:25 AM) Component Value Ref Range Ionized Calcium 1.17 1.0 - 1.3 MMOL/L Specimen Performing Laboratory Blood MAIN LAB [address] [place], [place] [id number] * PHOSPHORUS (06/14/2017 3:25 AM) Component Value Ref Range Phosphorus 1.9 (L) 2.0 - 4.0 MG/DL Specimen Performing Laboratory Blood MAIN LAB [address] [place], [place] [id number] * MAGNESIUM (06/14/2017 3:25 AM) Component Value Ref Range Magnesium 2.8 (H) 1.6 - 2.6 mg/dL Specimen Performing Laboratory Blood MAIN LAB [address] [place] [address] * CBC AND DIFF (06/14/2017 3:25 AM) Component Value Ref Range White Blood Cells 10.5 4.5 - 11.0 K/UL RBC 4.94Comment: QA FLAGS AND/OR RANGES MODIFIED BY 4.0 - 5.0 M/UL DEMOGRAPHIC UPDATE ON 06/14 AT 0814 Hemoglobin 11.8 (L)Comment: QA FLAGS AND/OR RANGES MODIFIED 12.0 - 15.0 GM /DL BY DEMOGRAPHIC UPDATE ON 06/14 AT 0814 Hematocrit 34.7 (L)Comment: QA FLAGS AND/OR RANGES MODIFIED 36 - 45 % BY DEMOGRAPHIC UPDATE ON 06/14 AT 0814 MCV 70.3 (L) 80 - 100 FL MCH 23.8 (L) 26 - 34 PG MCHC 33.9 32.0 - 36.0 G/DL RDW 14.6 11 - 15 % Platelet Count 319 150 - 400 K/UL MPV 8.6 7 - 11 FL Neutrophils 86 (H) 41 - 77 % Lymphocytes 6 (L) 24 - 44 % Monocytes 8 4 - 12 % Eosinophils 0 0 - 5 % Basophils 0 0 - 2 % Absolute Neutrophil Count 9.00 (H) 1.8 - 7.0 K/UL Absolute Lymph Count 0.60 (L) 1.0 - 4.8 K/UL Absolute Monocyte Count 0.90 (H) 0 - 0.80 K/UL Absolute Eosinophil Count 0.00 0 - 0.45 K/UL Absolute Basophil Count 0.00 0 - 0.20 K/UL Specimen Performing Laboratory Blood MAIN LAB [address] [place] [id number] * BASIC METABOLIC PANEL (06/14/2017 3:25 AM) Component Value Ref Range Sodium 134 (L) 137 - 147 MMOL/L Potassium 3.3 (L) 3.5 - 5.1 MMOL/L Chloride 102 98 - 110 MMOL/L CO2 26 21 - 30 MMOL/L Anion Gap 6 3 - 12 Glucose 275 (H) 70 - 100 MG/DL Blood Urea Nitrogen 18 7 - 25 MG/DL Creatinine 0.54Comment: QA FLAGS AND/OR RANGES MODIFIED BY 0.4 - 1.00 MG/ DL DEMOGRAPHIC UPDATE ON 06/14 AT 0814 Calcium 9.5 8.5 - 10.6 MG/DL eGFR Non >60 [...] questions. Specimen Performing Laboratory Blood MAIN LAB [address] [place] [address] * PHOSPHORUS (06/13/2017 8:45 PM) Component Value Ref Range Phosphorus 2.5 2.0 - 4.0 MG/DL Specimen Performing Laboratory Blood MAIN LAB [address] [place] [phone] * MAGNESIUM (06/13/2017 8:45 PM) Component Value Ref Range Magnesium 1.6 1.6 - 2.6 mg/dL Specimen Performing Laboratory Blood MAIN LAB [address] [place] [address] * IONIZED CALCIUM (06/13/2017 8:45 PM) Component Value Ref Range Ionized Calcium 1.17 1.0 - 1.3 MMOL/L Specimen Performing Laboratory Blood MAIN LAB [address] [place] [id number] * COMPREHENSIVE METABOLIC PANEL (06/13/2017 8:45 PM) [...] questions. Specimen Performing Laboratory Blood MAIN LAB [address] [place] [address] * PTT (APTT) (06/13/2017 8:45 PM) Component Value Ref Range APTT 25.5 21.0 - 39.0 SEC Specimen Performing Laboratory Blood MAIN LAB [address] [place] [id number] * PROTIME INR (PT) (06/13/2017 8:45 PM) Component Value Ref Range INR 1.0 0.8 - 1.2 Specimen Performing Laboratory Blood MAIN LAB [address] [place], [place] [id number] * CBC AND DIFF (06/13/2017 8:45 PM) Component Value Ref Range White Blood Cells 10.8 4.5 - 11.0 K/UL RBC 4.95Comment: QA FLAGS AND/OR RANGES MODIFIED BY 4.0 - 5.0 M/UL DEMOGRAPHIC UPDATE ON 06/14 AT 0814 Hemoglobin 11.6 (L)Comment: QA FLAGS AND/OR RANGES MODIFIED 12.0 - 15.0 GM /DL BY DEMOGRAPHIC UPDATE ON 06/14 AT 0814 Hematocrit 35.9 (L)Comment: QA FLAGS AND/OR RANGES MODIFIED 36 - 45 % BY DEMOGRAPHIC UPDATE ON 06/14 AT 0814 MCV 72.5 (L) 80 - 100 FL MCH 23.5 (L) 26 - 34 PG MCHC 32.4 32.0 - 36.0 G/DL RDW 14.8 11 - 15 % Platelet Count 292 150 - 400 K/UL MPV 8.4 7 - 11 FL Neutrophils 88 (H) 41 - 77 % Lymphocytes 6 (L) 24 - 44 % Monocytes 6 4 - 12 % Eosinophils 0 0 - 5 % Basophils 0 0 - 2 % Absolute Neutrophil Count 9.50 (H) 1.8 - 7.0 K/UL Absolute Lymph Count 0.70 (L) 1.0 - 4.8 K/UL Absolute Monocyte Count 0.70 0 - 0.80 K/UL Absolute Eosinophil Count 0.00 0 - 0.45 K/UL Absolute Basophil Count 0.00 0 - 0.20 K/UL Specimen Performing Laboratory Blood MAIN LAB [address] [place] [address] * CT HEAD EXTERNAL IMAGING (06/07/2017 12:15 AM) Narrative This order has been auto finalized and does not contain a result. in this encounter Visit Diagnoses Diagnosis Brain tumor (HCC) - Primary Neoplasm of unspecified nature of brain Aphasia Facial droop Facial weakness Right arm weakness Other musculoskeletal symptoms referable to limbs Diagnosis unknown Other unknown and unspecified cause of morbidity or mortality HTN (hypertension) Unspecified essential hypertension Hx of cancer of lung Personal history of malignant neoplasm of bronchus and lung CVA (cerebral vascular accident) (HCC) Unspecified cerebral artery occlusion with cerebral infarction Altered mental status Headache Severe malnutrition (HCC) Nutritional marasmus Admitting Diagnoses Diagnosis Brain lesion GBM (glioblastoma multiforme) (HCC) Brain tumor (HCC) Neoplasm of unspecified nature of brain Administered Medications Medication Order MAR Action Action Date Dose Rate Site acetaminophen (TYLENOL) tablet 650 mg Given 06/13/2017 650 mg 650 mg, Oral, EVERY 4 HOURS PRN, 21:18 CDT Starting Margaret 06/13/17 at 1930, Until Margaret 06/20/17 at 1611, Temp > ..., 38.3 C, TOTAL ACETAMINOPHEN DOSE NOT TO EXCEED 4GM DAILY Given 06/19/2017 650 mg 21:39 CDT ceFAZolin (ANCEF) IVP 1 g Given 06/17/2017 1 g 1 g, Intravenous, EVERY 8 HOURS, 3 18:52 CDT doses, First dose on 06/17/17 at 1845, Last dose on Tu06/18/17 at 1045, IV PUSH -- RECONSTITUTE each 1 g vial by adding 10 mL 0.9% NACL Given 06/18/2017 1 g 03:06 CDT Given 06/18/2017 1 g 11:11 CDT dexamethasone (DECADRON) injection 4 mg Given 06/13/2017 4 mg 4 mg, Intravenous, 1 mL, Administer over 21:04 CDT 5 Minutes, EVERY 6 HOURS, First dose on Margaret 06/13/17 at 1945, Until Discontinued, Administration of IV Push Dexamethasone (on Non-Critical Care Units): - Adults: Administer doses of 10 mg or less diluted in 10 mL of NS or D5W IV Push over 5 minutes. Doses greater than 10mg should be administered via Piggyback. - Pediatrics: Administer doses of 10 mg or less diluted in 5-10 mL of NS or D5W IV Push over 5 minutes. Doses greater than 10mg should be administered via Piggyback. Given 06/14/2017 4 mg 03:23 CDT dexamethasone (DECADRON) injection 4 mg Given 06/17/2017 4 mg 4 mg, Intravenous, 1 mL, Administer over 19:22 CDT 5 Minutes, EVERY 6 HOURS, First dose on Sat06/17/17 at 1845, Until Discontinued, Administration of IV Push Dexamethasone (on Non-Critical Care Units): - Adults: Administer doses of 10 mg or less diluted in 10 mL of NS or D5W IV Push over 5 minutes. Doses greater than 10mg should be administered via Piggyback. - Pediatrics: Administer doses of 10 mg or less diluted in 5-10 mL of NS or D5W IV Push over 5 minutes. Doses greater than 10mg should be administered via Piggyback. Given 06/17/2017 4 mg 23:34 CDT Given 06/18/2017 4 mg 06:15 CDT dexamethasone (DECADRON) tablet 4 mg Given 06/16/2017 4 mg 4 mg, Oral, EVERY 6 HOURS, First dose 18:11 CDT on Sat06/14/17 at 1200, Until Discontinued Given 06/16/2017 4 mg 23:44 CDT Given 06/17/2017 4 mg 05:47 CDT dexamethasone (DECADRON) tablet 4 mg Given 06/19/2017 4 mg 4 mg, Oral, EVERY 6 HOURS, First dose 00:34 CDT on Sat06/18/17 at 1200, Until Discontinued Given 06/19/2017 4 mg 06:41 CDT Given 06/19/2017 4 mg 12:20 CDT dexamethasone (DECADRON) tablet 4 mg Given 06/19/2017 4 mg 4 mg, Oral, EVERY 8 HOURS, First dose 21:39 CDT on Sat06/19/17 at 2200, Until Discontinued Given 06/20/2017 4 mg 06:13 CDT docusate (COLACE) capsule 100 mg Given 06/18/2017 100 mg 100 mg, Oral, TWICE DAILY, First dose on 21:08 CDT [facility] 06/13/17 at 2100, Until Discontinued, Hold for loose stools Given 06/19/2017 100 mg 08:55 CDT Given 06/19/2017 100 mg 21:39 CDT fentaNYL citrate PF (SUBLIMAZE) Given 06/17/2017 50 mcg injection 25-50 mcg 23:34 CDT 25-50 mcg, Intravenous, EVERY 1 HOUR PRN, Starting Sat06/17/17 at 1835, Until Sat06/18/17 at 0958, Pain Injectable gadobenate dimeglumine (MULTIHANCE) Given 06/18/2017 10 mL injection 10 mL 00:45 CDT 10 mL, Intravenous, ONCE, 1 dose, Sat06/18/17 at 0045, NOTE: This is a HIGH ALERT Medication. gadobenate dimeglumine (MULTIHANCE) Given 06/14/2017 11 mL injection 11 mL 10:40 CDT 11 mL, Intravenous, ONCE, 1 dose, Sat06/14/17 at 1115, NOTE: This is a HIGH ALERT Medication. heparin (porcine) PF syringe 5,000 Units Given 06/16/2017 5,000 Units Abdominal 5,000 Units, Subcutaneous, EVERY 8 05:33 CDT Tissue HOURS, 8 doses, First dose on Sat06/14/17 at 1400, Last dose on Sat06/16/17 at 2200, NOTE: This is a HIGH ALERT Medication. Given 06/16/2017 5,000 Units Abdomen:LLQ 14:51 CDT Given 06/16/2017 5,000 Units Abdomen:LLQ 21:33 CDT heparin (porcine) PF syringe 5,000 Units Given 06/19/2017 5,000 Units Abdominal 5,000 Units, Subcutaneous, EVERY 8 21:39 CDT Tissue HOURS, First dose on Sat06/19/17 at 2100, Until Discontinued, NOTE: This is a HIGH ALERT Medication. Given 06/20/2017 5,000 Units Abdominal 06:13 CDT Tissue hydrALAZINE (APRESOLINE) injection 10 mg Given 06/13/2017 10 mg 10 mg, Intravenous, EVERY 6 HOURS PRN, 21:09 CDT Starting Margaret 06/13/17 at 1930, Until Sat06/13/17 at 2333, Systolic Blood Pressure..., >160 mmHg or MAP >110 mmHg hydrALAZINE (APRESOLINE) injection 10 mg Given 06/17/2017 10 mg 10 mg, Intravenous, EVERY 6 HOURS PRN, 20:17 CDT Starting Sat06/14/17 at 2108, Until Sat06/18/17 at 0958, Systolic Blood Pressure..., SBP > 160 Given 06/18/2017 10 mg 03:17 CDT Given 06/18/2017 10 mg 09:44 CDT hydrALAZINE (APRESOLINE) injection 20 mg Given 06/18/2017 20 mg 20 mg, Intravenous, ONCE, 1 dose, Sat 01:18 CDT 06/18/17 at 0115 hydroCHLOROthiazide (HYDRODIURIL) tablet Given 06/18/2017 25 mg 25 mg 08:08 CDT 25 mg, Oral, EVERY MORNING, First dose on 06/15/17 at 0900, Until Discontinued Given 06/19/2017 25 mg 08:55 CDT Given 06/20/2017 25 mg 08:13 CDT HYDROcodone/acetaminophen (NORCO) 5/325 Given 06/18/2017 2 tablets mg tablet 1-2 tablet 18:16 CDT 1-2 tablet, Oral, EVERY 4 HOURS PRN, Starting Sat06/14/17 at 0736, Until Margaret 06/20/17 at 1611, Pain PO, TOTAL ACETAMINOPHEN DOSE NOT TO EXCEED 4GM DAILY NOTE: This is a HIGH ALERT Medication. Given 06/19/2017 1 tablet 04:13 CDT Given 06/19/2017 1 tablet 09:00 CDT insulin aspart U-100 (NOVOLOG FLEXPEN) Given 06/19/2017 2 Units Abdomen :LLQ injection PEN 0-7 Units 18:26 CDT 0-7 Units, Subcutaneous, BEFORE MEALS AND AT BEDTIME, First dose on Sat06/14/17 at 0700, Until Discontinued, -POC glucose 140-180mg/dL at , , administer 1 unit insulin, at , 03* administer 0 units. -POC glucose 181-220mg/dL at , , administer 2 units insulin, at , 03* administer 1 unit. -POC glucose 221-260mg/dL at , , administer 3 units insulin, at , * administer 2 units. -POC glucose 261-300mg/dL at , , administer 4 units insulin, at , 03* administer 3 units. -POC glucose 301-350mg/dL at , administer 5 units insulin, at , * administer 4 units. -POC glucose 351-400mg/dL at , administer 6 units insulin, at , * administer 5 units. -POC glucose >400mg/dL at , administer 7 units insulin, at , * administer 6 units. *only if ordered 5x's daily For POCT glucose >350mg/dL give correction bolus and recheck POCT glucose in 2 hours. If POCT glucose at 2 hours >300mg/dL call physician for further orders. For patients who are not eating meals, continue to administer the appropriate correction factor. NOTE: This is a HIGH ALERT Medication. Given 06/20/2017 1 Units Abdomen:RLQ 08:13 CDT Given 06/20/2017 1 Units Abdomen:LLQ 12:01 CDT iopamidol 370 (ISOVUE-370) injection 80 Given 06/15/2017 80 mL mL 08:30 CDT 80 mL, Intravenous, ONCE, 1 dose, 06/15/17 at 0830, NOTE: This is a HIGH ALERT Medication. levETIRAcetam (KEPPRA) tablet 500 mg Given 06/16/2017 500 mg 500 mg, Oral, TWICE DAILY, First dose on 08:11 CDT Sat06/14/17 at 0900, Until Discontinued Given 06/16/2017 500 mg 21:32 CDT Given 06/17/2017 500 mg 07:54 CDT levETIRAcetam (KEPPRA) tablet 500 mg Given 06/19/2017 500 mg 500 mg, Oral, TWICE DAILY, First dose on 08:55 CDT 06/18/17 at 1000, Until Discontinued Given 06/19/2017 500 mg 21:39 CDT Given 06/20/2017 500 mg 08:13 CDT levETIRAcetam in NaCl (iso-os) (KEPPRA) Given - New 06/13/2017 500 mg IVPB (premade) 500 mg 100 mL Bag 23:19 CDT 500 mg, 100 mL, Administer over 15 Minutes, Intravenous, TWICE DAILY, First dose on Margaret 06/13/17 at 2100, Until Discontinued levETIRAcetam in NaCl (iso-os) (KEPPRA) Given - New 06/17/2017 500 mg IVPB (premade) 500 mg 100 mL Bag 20:20 CDT 500 mg, 100 mL, Administer over 15 Minutes, Intravenous, TWICE DAILY, First dose on 06/17/17 at 2100, Until Discontinued Given - New Bag 06/18/2017 500 mg 09:44 CDT lisinopril (PRINIVIL; ZESTRIL) tablet 40 Given 06/18/2017 40 mg mg 08:08 CDT 40 mg, Oral, DAILY, First dose on 06/15/17 at 0900, Until Discontinued Given 06/19/2017 40 mg 08:55 CDT Given 06/20/2017 40 mg 08:13 CDT magnesium sulfate 1 g/D5W 100 mL IVPB Given - New 06/13/2017 1 g 100 mL/hr 1 g, Intravenous, 100 mL, Administer Bag 22:02 CDT over 1 Hours, NEEDED, Starting Margaret 06/13/17 at 2222, Until Sat06/14/17 at 0737, Other..., magnesium replacement (see Admin Instructions), If urine output < 30 mL/hr or SCr >2 mg/dL, check with physician prior to giving magnesium replacement. - For Serum Magnesium > 2.1 mg/dL, No replacement necessary. - For Serum Magnesium 1.8 - 2.0 mg/dL, give Magnesium Sulfate 2 grams IV over 2 hours. - For Serum Magnesium 1.6 - 1.7 mg/dL, give Magnesium Sulfate 3 grams IV over 3 hours. - For Serum Magnesium 1.3 - 1.5 mg/dL, give Magnesium Sulfate 4 grams IV over 4 hours. - For Serum Magnesium <=1.2 mg/dL, give Magnesium Sulfate 6 grams IV over 6 hours AND notify physician. Recheck serum magnesium level 4 hours after completion of appropriate replacement dose. Repeat this standing order x 1. Notify physician if serum magnesium < 2.1 mg/dL after two replacements. Infuse each 1gm Magnesium sulfate over 1 hour. Each 1 gm delivers 8.1 mEq Magnesium. Given - New Bag 06/13/2017 1 g 100 mL/hr 23:01 CDT Given - New Bag 06/14/2017 1 g 100 mL/hr 01:01 CDT milk of magnesia (CONC) oral suspension Given 06/16/2017 10 mL 10 mL 08:11 CDT 10 mL, Oral, DAILY, First dose on Margaret 06/13/17 at 1945, Until Discontinued, May hold if BM within 24 hours of dose. 10 mL CONC=30 mL MOM Given 06/18/2017 10 mL 09:44 CDT Given 06/19/2017 10 mL 08:55 CDT potassium chloride SR (K-DUR) tablet Given 06/13/2017 40 mEq 40-60 mEq 22:01 CDT 40-60 mEq, Oral, NEEDED, Starting Margaret 06/13/17 at 2222, Until Sat06/14/17 at 0737, Other..., For potassium replacement, See admin instructions, If urine output < 30 mL/hr or SCr >2 mg/dL, check with physician prior to giving K+ replacement. - K 3-4 mmol/L, administer KCl 40 mEq PO/NG x1 dose - K 2.5-2.9 mmol/L, administer KCl 60 mEq PO/NG x1 dose AND notify physician for additional dosing - K < 2.5 mmol/L notify physician for dosing Recheck serum potassium two hours after completion of appropriate replacement dose. Repeat this standing order x 2. Notify physician if serum potassium < 3.3 mmol/L after three replacements. Do NOT break or crush tablet Given 06/14/2017 40 mEq 05:35 CDT potassium, sodium phosphates (PHOS-NaK) Given 06/14/2017 500 mg packet 500 mg 09:36 CDT 500 mg (2 packet), Oral, ONCE, 1 dose, Sat06/14/17 at 0830, NEUTRAPHOS or Phos-NaK -- MIX PACKET IN 75ML WATER Each packet delivers 8mM Phosphorus, 7mEq Potassium, and 7 mEq Sodium senna/docusate (SENOKOT-S) tablet 1 Given 06/18/2017 1 tablet tablet 21:08 CDT 1 tablet, Oral, TWICE DAILY, First dose on Sat06/13/17 at 2100, Until Discontinued, Hold for loose stools. If patient unable to take tablet, give 10 mL of senna/docusate (SENOKOT-S) solution. Send Sensdata message to pharmacy. Given 06/19/2017 1 tablet 08:55 CDT Given 06/19/2017 1 tablet 21:38 CDT sodium chloride 0.9 % infusion Given - New 06/17/2017 75 mL/hr 1,000 mL, Intravenous, at 75 mL/hr, Bag 06:13 CDT CONTINUOUS, Starting Sat06/17/17 at 0545, Until Sat06/18/17 at 0958 Given - New Bag 06/17/2017 75 mL/hr 20:20 CDT sodium chloride 0.9 % infusion Given - New 06/17/2017 1,000 mL 20 mL/ hr 1,000 mL, 1,000 mL, Intravenous, at 20 Bag 13:30 CDT mL/hr, CONTINUOUS, Starting Sat06/17/17 at 1230, Until Sat06/18/17 at 0958 sodium chloride PF 0.9% injection 50 mL Given 06/15/2017 50 mL 50 mL, Intravenous, ONCE, 1 dose, Sat 08:30 CDT 06/15/17 at 0830, Intra-procedure (IR) temazepam (RESTORIL) capsule 7.5 mg Given 06/14/2017 7.5 mg 7.5 mg, Oral, AT BEDTIME PRN, Starting 21:34 CDT Sat06/14/17 at 2107, Until Sat06/20/17 at 1611, Insomnia Given 06/15/2017 7.5 mg 22:45 CDT Given 06/16/2017 7.5 mg 21:43 CDT in this encounter
--- OUTSIDE RECORDS SUMMARY | 2017-06-20 16:50 | XMS REPORT | Encounter Summary ---
Author Author [facility] Organization [facility] Address Unknown Phone Unavailable Care Team Providers Care Plant Controls Specialist Name Role Phone Jeremy Graf MD PCP Reason for Visit * Auth/Cert Status Reason Specialty Diagnoses / Referred By Referred To Procedures Contact Contact Diagnoses Brain tumor (HCC) Brain lesion GBM (glioblastoma multiforme) (HCC) Encounter Details Date Type Department Care Team Description 06/17/2017 Surgery CA Operating Room Federico Chakraborty MD CRANIOTOMY FOR LEFT [address] [address] MS 3021 WITH NAVIGATION [phone] [place], [place] [id number] Social History Tobacco Use Types Packs/Day Years [...] of this encounter Progress Notes * Traci Nicole APRN - 06/20/2017 12:45 PM CDT Med-Onc Quick Note: - Follow up with Dr. Rueda on 07/09/17 at [facility] [place] on 07/09/17 at 9:30 am - Records faxed to Dr. Rueda's office for continuity of care Isaias Nicole APRN [phone] * Carito Quiles RN - 06/20/2017 12:45 PM CDT DC orders received at [phone]. [phone] - Paperwork reviewed, IV DC'd and all questions answered at this time. Transport placed and RN will continue to monitor until DC. * Vy Sidhu APRN - 06/20/2017 11:44 AM CDT Formatting of [...] follow up, likely closer to home in [place] - Oncology Follow up with Dr. Kenney on 07/09 at [facility]; per onc, records faxed PT/OT/CONTAINER PACKER OPERATOR Discharge planning --discharge to [facility] in [place] today Prophylaxis: A) GI: PPI B) Lines: No C) Urinary Catheter: No D) Antibiotic Usage: No E) VTE: Pharmacological prophylaxis; SQ Heparin and Mechanical prophylaxis; Sequential compression device F) Restraints: Patient assessed for need for restraints. Please call [phone] with any questions. Vy Sidhu APRN Pager [phone] * Minda Soto, PT - 06/20/2017 10:14 [...] balance assessment, increase gait distance Therapist: Minda Soto PT, DPT, [facility] Date: 06/20/2017 * Maryse Sheikh RN - 06/19/2017 8:48 PM CDT Pt stating it hurts to urinate and is experiencing urgency and frequent need to urinate. Upon assessment she is has suprapubic pain. 2051: Neurosurgery notified. Dr. Lino ordered a UA. WCTM. * Minda Soto PT - 06/19/2017 3:59 PM CDT PHYSICAL THERAPY NOTE Patient was unavailable for physical therapy x2 attempts today. Physical therapy will continue to follow and provide intervention as indicated. Therapist: Minda Soto PT, DPT Date: 06/19/2017 * Stephanie Healy - 06/19/2017 3:07 PM CDT SPEECH-LANGUAGE PATHOLOGY DAILY TREATMENT NOTE Patient seen 1x this date. Documentation reflects all daily treatment sessions. SUMMARY OF THERAPY SESSION: Pt seen by CONTAINER PACKER OPERATOR for language tx. Pt's present for session. [...] To maximize communication Therapist: Stephanie Healy MA, CCC-CONTAINER PACKER OPERATOR Voalte: [phone] Pager: [phone] Date: 06/19/2017 * Esperanza Tineo - 06/19/2017 11:15 AM CDT Formatting of this note may be different from the original. OCCUPATIONAL THERAPY PROGRESS NOTE Patient Name: Abeba Phillips Room/Bed: [place] [address] Admitting Diagnosis: Brain lesion GBM (glioblastoma multiforme) [...] Ambulation, Stairs, Safety concerns, Bathing, Dressing Therapist: FREDDY Jacques Date: 06/19/2017 Associated attestation - Scarlett Glover [...] and keppra Onc following Rad Onc following PT/OT/CONTAINER PACKER OPERATOR Discharge planning -- rehab following; CM/SW involved. Anticipate will be medically ready for discharge in the next 2-3 days. Prophylaxis: A) GI: PPI B) Lines: No C) Urinary Catheter: No D) Antibiotic Usage: No E) VTE: Pharmacological prophylaxis; SQ Heparin and Mechanical prophylaxis; Sequential compression device F) Restraints: Patient assessed for need for restraints. Please call [phone] with any questions. Sera Tracey APRN Pager [phone] * Kathy Lau RN - 06/18/2017 6:13 [...] SUMMARY OF THERAPY SESSION: Pt seen by CONTAINER PACKER OPERATOR for language tx; reassessment of receptive/expressive language [...] yes/no: 4/5 Reading comprehension: Biographical/pt information sheet: 06/17 Verbal expression: Repetition: / Automatic: 11/22 for months of year, 3/7 for days of week Perseveration and non-specific [...] To maximize communication Therapist: Stephanie Healy MA, CCC-CONTAINER PACKER OPERATOR Voalte: [phone] Pager: [phone] Date: 06/18/2017 * Sena Russ - 06/18/2017 12:06 PM CDT CLINICAL NUTRITION Clinical Nutrition Assessment Summary Nutrition Assessment of Patient: BMI Categories Adult: Acceptable: 18.5-24.9 (24.42) Unintentional Weight Loss: > 5% in 1 month (severe) Malnutrition Assessment: Malnutrition present Malnutrition Context: ICD-10 code E43: Chronic illness/Severe malnutrition Current Oral Intake: Inadequate, Improving Estimated Calorie Needs: 1462-8022 (30-33 kcal/kg admit wt 56.6kg) Estimated Protein [...] Severe Orbital Muscle Wasting: Yes Severe Quadriceps, Denominational, Clavicle Edema: No Malnutrition Interventions: Ordered boost [...] Hx. Pt was able to eat a Bulgarian yogurt parfait that daughter got from cafeteria this morning. Pt notes that TRIMMER MACHINE OPERATOR her appetite was very poor and she [...] was not taking any oral nutrition supplements TRIMMER MACHINE OPERATOR but has tried them in the past. [...] lack of desire to eat, and lethargy TRIMMER MACHINE OPERATOR Signs & Symptoms: pt/daughter report of ~40 lb weight loss x 2 months Goals: Patient to consume >75% of meals/supplements Time Frame: Within 72 Hours Prevent further weight loss Time Frame: Throughout Stay Myesha Russ RD, LD Pager: [phone] * Esperanza Tineo - 06/18/2017 10:46 AM CDT Formatting of this note may be different from the original. OCCUPATIONAL THERAPY ASSESSMENT NOTE Patient Name: Abeba Phillips Room/Bed: [place] [address] Admitting Diagnosis: Brain lesion GBM (glioblastoma multiforme) [...] Comments: Pt owns 4 pets. Lives in [place], [place] with a lot of family in [...] Patient Will Perform All ADL's: w/ Modified [place];In Chair;w/ Good Judgment/Safety Patient Will Perform LE [...] AM, Onc following, Rad Onc consult placed PT/OT/CONTAINER PACKER OPERATOR, Rehab consult placed. Dex and Keppra Na [...] assessed for need for restraints. Please call [phone] with any questions. Miriam Parekh, BRIM STITCHER Pager [phone] * Shantell Reeder, PT - 06/18/2017 9:11 [...] Score: 41.05 Basic Mobility CMS 0-100%: 40.47 [facility] G Code Modifier for Basic Mobility: CK [...] Patient has been mobilizing in room with social staff worker. Will plan to follow up after OR, [...] at 2 prior to OR. Edwige Lino [phone] * Shayla Figueroa, ALISON - 06/14/2017 8:08 PM CDT Patient arrived [...] post-operatively to provide evaluation/intervention as indicated. Therapist: Demetria Jordan, OTR/[place] [id number] Date: 06/14/2017 * Shantell Maurer M.Div, [facility] - 06/14/2017 2:22 PM CDT Reason for Visit: Patient request at admission Josee/Amish: The patient is Confucianism and does not attend gnosticist. Worries/Concerns/Struggles: She is both scared about the surgery and happy to get it over with on Saturday. Support System: Her daughter and granddaughter will be here on Saturday during the surgery. Interventions/Plan: The sandwich wrapper prayed with the patient and assessed her spiritual needs. Her spiritual need is low now, but may be higher following the surgery. The sandwich wrapper will visit again next week for follow up after the surgery. The spiritual care team is available as needed, 03/09, through the [place] switchboard ([phone]). For immediate response, please page [phone]. For a response within 24 hours, please submit an order in O2 for a sandwich wrapper consult or call the administrative voicemail at [phone]. * Traci Knight PT - 06/14/2017 10:43 AM CDT PHYSICAL THERAPY [...] can understand, she fell last December around [place] (states she tripped over the cat). Apparently [...] thumb was partially amputated. Handedness: Right Hearing: WFL Education Level: College Lives With: Alone Receives [...] given moderate cues. Therapist: Stephanie Healy MA, CCC-CONTAINER PACKER OPERATOR Voalte: [phone] Pager: [phone] Date: 06/14/2017 * Siomara Billingsley, BRIM STITCHER-DIETARY WORKER - 06/14/2017 8:12 AM CDT Formatting of [...] assessed for need for restraints. Please call [phone] with any questions. Siomara Billingsley APRN-DIETARY WORKER Pager [phone] * Ronn Lilly MD - 06/14/2017 6:39 [...] abuse who presents as a transfer from [place], [place] for newly diagnosed brain tumor. Hospital [...] prn, Tylenol 650mg PO q4h prn - Soledad 5/325 mg q4h prn - Assess for delirium daily Cardiac: HTN - SBP goal <160 - MAP goal > 65 Plan - Restart TRIMMER MACHINE OPERATOR regimen after confirmation with pharmacy (atenolol, HCTZ, [...] <38.3 celsius, normothermia protocol if febrile Renal: Clock Assembler 0.54, BUN 18 Plan - Daily BMP - I/O balance even over 24 hrs - Aim for normovolemia Endocrine: Hypothyroidism Steroid induced hyperglycemia - Restart TRIMMER MACHINE OPERATOR synthroid after med rec - Blood glucose [...] NSG Consults: NCC Associated attestation - Krista Duarnd MD - 06/16/2017 1:29 PM CDT Formatting of this note may be different from the original. ATTESTATION I personally performed the watt portions of the E/M visit, discussed case with resident and concur with resident documentation of history, physical exam, assessment, and treatment plan unless otherwise noted. Staff name: Krista Durand MD Date: 06/16/2017 * Ashlyn Manning RN - 06/13/2017 9:32 PM CDT 2130 - Patient's daughter and Asia MONTANO called [...] could have a diet. Regular diet ordered. 2200 - Patient became asymptomatically tachycardic with HR in the 110's, SBP dropped from 140-130 to 110/ ANA Seymour informed of the changes. Patient's admission labs revealed a potassium of 3.3 and a magnesium of 1.6, Lion requested that electrolyte protocol be followed. 2320 - Patient remained tachycardicand had no complaints, [...] and place orders as needed. * Ashlyn Manning RN - 06/13/2017 7:33 PM CDT Patient arrived [...] (Last 24 hours): Glucose: (!) 169 (06/17/17 0506) POC Glucose (Download): (!) 158 (06/17/17 9932) I have examined the patient, and there are no significant changes in their condition, from the previous H&P performed on 06/13/17. Miriam Parekh APRN Pager [phone] Neurosurgery History and Physical Examination Abeba Phillips [...] surgical resection early next week Please call [phone] with questions Eduar Edouard MD 7820 ATTESTATION I personally performed the watt portions [...] surgical resection early next week Please call [phone] with questions Eduar Edouard MD 2612 ATTESTATION I personally performed the watt portions [...] most consistent with GBM , with associated dwmd-qj-zpnns midline shift and mild transient or herniation. The patient was taken to the OR on 06/17/2017 for left frontal craniotomy with resection of tumor. Pathology is pending. We would recommend for the patient to followup with Radiation Oncology clinic outpatient. She lives in [place], [place] and prefers to be treated there if adjuvant therapy is warranted. Please call with any questions. Ida Arevalo PGY2 Radiation Oncology Resident Pager # [phone] History of Present Illness: Abeba Phillips is a 77 y.o. female with newly discovered left frontal brain mass. She presented with altered cognition, aphasia, word searching, falls, and lethargy. MRI showed a large centrally necrotic periventricular and orbital left frontal mass with irregular enhancing rind measuring 6.2 x 4.7 x 4.7 cm, most consistent with GBM. There was associated ckyj-jz-cqqql midline shift and mild transient or herniation. [...] cleans. Granddaughter helps with chores, but works customer manager job. Family History Problem Relation Age of [...] surrounding left frontal edema with 5 mm lhoi-no-fahya frontal midline shift and mild transalar herniation. Persistent mild ventriculomegaly which is discordant to the degree of sulcal prominence. Patchy and confluent FLAIR hyperintensity throughout the supratentorial white matter and levar consistent with marked nonspecific white matter disease. Superimposed transependymal edema could be present. 1. Persistent large necrotic enhancing left frontal cerebral mass, most consistent with glioblastoma. 2. Associated mier-da-gfdjy midline shift and mild transient or herniation. [...] and does not contain a result. Ida Arevalo MD Pager Associated attestation - Rianna Vazquez MD [...] : 1940 Primary Insurance: MEDICARE Secondary Insurance: AETNA Tertiary Insurance: Financial Class: Medicare Date of [...] a 77 y.o. female admitted to [facility] on 06/13/2017 with the following issues: GBM [...] prefers to be closer to home in [place], [place] -Patient meets criteria with medical complexity and therapeutic goals for admission to acute inpatient rehab facility. -At this moment, patient will likely need ongoing PT/OT/CONTAINER PACKER OPERATOR therapy services. -Will continue to follow as [...] 3 therapeutic disciplines, including PT, OT, and CONTAINER PACKER OPERATOR. This will need to be determined prior to considering admission to acute inpatient rehabilitation. Other recommendations (bowel, bladder, skin, pain, etc): PT, OT, ST consulted to address deficits as below Impaired gait/mobility: TRIMMER MACHINE OPERATOR pt was independent at community level without assistive device Currently requiring Min A-RW 20' gait Will benefit from continued work with PT to address mobility deficits Impaired ADL: TRIMMER MACHINE OPERATOR pt was independent Currently requiring Min A-LE dressing Will benefit from ongoing OT to address functional deficits Acute post-op pain: Patient would benefit from pre-treatment of pain prior to therapies and possibly scheduling Tylenol 650mg-1g TID while awake for improved pain and function. Thank you for this consultation. Please call our consult pager with questions or concerns. Vicki Blake MD Rehab Consult Pager: [phone] History of Present Illness Hospital Course: Abeba Phillips is a 77F PMH Lung CA, skin CA who presents 06/13 after multiple falls. Patient found to have [...] cleans. Granddaughter helps with chores, but works customer manager job. Family History Problem Relation Age of [...] sock with no assist. See vision note. CONTAINER PACKER OPERATOR COGNITIVE EVALUATION SUMMARY PRAGMATICS: BEHAVIOR: AUDITORY COMPREHENSION: [...] hours) at 06/18/172226 Last data filed at 06/18/172030 Gross per 24 hour Intake 1170 ml [...] frontal brain mass and was transferred to [facility] for NS management. She has undergone left frontal craniotomy and resection of brain tumor by Dr. Chakraborty on 06/17/2017, and Oncology and Radiation Oncology teams have been consulted. She has resulting what seems to be right hemiparesis with generalized weakness, apraxia, aphasia, as well as significant functional deficits as noted. The patient seems to have medical complexity and goals with PT, OT, and CONTAINER PACKER OPERATOR for acute inpatient rehabilitation at this moment. [...] closer to home with possible discharge to longterm vs assisted living facility), and clinical stability with titration off any IV pain medications. Please have primary SWCM discuss with [facility] corporate safety coordinator according to the patient's (and/or their [...] noted. Ad Rand MD * Erma Seymour, BRIM STITCHER-DIETARY WORKER - 06/14/2017 1:25 AM CDT Associated Order(s): CONSULT NEURO CRITICAL CARE PHYSICIAN Formatting of this note may be different from the original. Neuro Critical Care Consult Abeba Phillips Admission Date: 06/13/2017 LOS: 1 day Full [...] abuse who presents as a transfer from [place] for newly diagnosed brain tumor. Hospital [...] R Lung cancer s/p right middle lobectomy 2015 Nicotine abuse - Stable on RA - [...] <38.3 celsius, normothermia protocol if febrile Renal: Clock Assembler 0.49, BUN 14 Plan - Daily BMP - I/O balance even over 24 hrs - Aim for normovolemia Endocrine: Hypothyroidism - TRIMMER MACHINE OPERATOR synthroid? - Blood glucose goal 100-180mg/dl Musk: Hx of left thumb ca s/p partial amputation FEN: - IVF: No IVFs - Magnesium goal >2.0, i-Navid goal > 1.0, Potassium goal >4.0 mEq/L Prophylaxis Review: A)GI: PPI/I4Qinmdwe B) Lines: No C) Urinary Catheter: No D) Antibiotic Usage: No E) VTE: Mechanical prophylaxis; Sequential compression device F) Isolation: none G)Seizures: none I) Restraints: Patient assessed for need for restraints. Disposition/Family: ICU Primary service: KIRAG Consults: CANDE SUBJECTIVE Chief Complaint: Nausea and vomiting History of Present Illness: Abeba Phillips is a 77 y.o. male female with a newly discovered left frontal brain mass on MRI imaging. The patient is not the greatest historian and no family is present at this time to report the recent course of events. When asked about her recent symptoms preceding her transfer to [facility], she reports some short term memory loss, [...] (124 lb 12.5 oz), SpO2 96 %. [place] coma score: E: 4 - Opens eyes [...] coordination of care with consulted teams Erma Seymour APRN-DIETARY WORKER Date: 06/14/[phone] in this encounter Miscellaneous Notes * Case [...] has been accepted and is transferring to [facility] today by private vehicle. Medical oncology planning to follow up with pt's oncology team in [place] regarding pathology and recommendations. Interventions ? Support Pt's daughter is supportive and available to assist pt, once she is in [place]. Her daughter also lives in [place], and she is able to provide transportation and practical support for Mrs. Phillips. ? Info or Referral ? Discharge Planning [facility] [address] [address] ak;[phone] ? Medication Needs ? Financial ? Legal ? Other Disposition ? Expected Discharge Date Expected Discharge Date: 06/20/17 ? Transportation Does the patient need discharge transport arranged?: No Transportation Name, Phone and Availability #1: [id number] ? Next Level of Care (Acute Psych discharges only) ? Discharge Disposition Durable Medical Equipment No service has been selected for the patient. [facility] Destination No service has been selected for the patient. Home Care No service has been selected for the patient. Dialysis/Infusion No service has been selected for the patient. Padma Lugo, [facility] *[phone] * Care Plan - Carito Quiles [...] to home. LEXY sent a referral to [facility] ([facility]) to review and clinically accept. LEXY hopeful that pt will be eligible to d/c tomorrow. LEXY sent an e-mail to the facility manager histology and radiation/oncology SW regarding follow up for pt, once the pathology is back. Interventions ? Support Pt's daughter is supportive and may be available to assist pt to and from appointments. SW to further investigate pt's social support today. LEXY called and spoke with Asia, pt's daughter, who is planning on coming tomorrow to take pt back to [place], [facility]. ? Info or Referral ? Discharge Planning Pt is a rehab candidate with complex medical goals for rehabilitation. LEXY sent a referral to [facility] in [place] for medical review and acceptance. LEXY will talk with pt and her daughter today about support and transportation, post [facility] care. [address] [address] fm;[phone] ? Medication Needs ? Financial ? Legal ? Other Disposition ? Expected Discharge Date Expected Discharge Date: 06/20/17 ? Transportation Does the patient need discharge transport arranged?: No Transportation Name, Phone and Availability #1: [id number] ? Next Level of Care (Acute Psych discharges only) ? Discharge Disposition Durable Medical Equipment No service has been selected for the patient. Destination No service has been selected for the patient. Home Care No service has been selected for the patient. Dialysis/Infusion No service has been selected for the patient. Padma Lugo, [facility] *[phone] * Anesthesia Post Op Day 1 [...] Brain SURGICAL PATHOLOGY Federico Chakraborty MD 06/17/2017 3283 2 : Left Frontal Tumor for Routine Tissue Brain SURGICAL PATHOLOGY Federico Chakraborty MD 06/17/2017 9962 Complications: None Implants: Lyoplant and KLS Hugh plating system Drains: Horn Catheter: x mL Disposition: ICU - stable Minda Gonzalez MD Pager [phone] * Operative Report (DICTATED ONLY) - Federico Chakraborty MD - 06/17/2017 5:30 PM CDT [address] [id number] PATIENT NAME: ABEBA PHILLIPS MR#/PT#: [id number] Page 1 OPERATIVE REPORT DATE OF OPERATION: 06/17/2017 SURGEON: Federico Chakraborty MD FITTER HELPER(S): Minda Gonzalez M.D. PREOPERATIVE DIAGNOSIS: Left frontal brain tumor. POSTOPERATIVE DIAGNOSIS: Same. OPERATIVE PROCEDURE: Left frontal craniotomy, resection of brain tumor. ANESTHESIA: General. DESCRIPTION AND FINDINGS OF OPERATIVE PROCEDURE: Under general anesthesia, the patient's head was fixed in [place] head of visual merchandising. The patient was put in the supine [...] mL. SPECIMENS REMOVED: Left frontal brain tumor. Federico Chakraborty MD RC / MEDQ /[id number] cc: - Federico Chakraborty MD * Case [...] has already begun looking into SNF at [facility] and [facility]. OR Saturday PT/OT/ST Patient [...] Patient uses a cane. Daughter lives in [place] and is able to help patient at discharge but she anticipates need for placement. SW will follow up post operatively to reasess for SNF needs. SW discussed SNF and benefits. Daughter has already looked into the locations above in [place]. Support provided to daughter. She is tearful and concerned. She is asking to talk with MD. RN paged MD to notify them of request. Patient Address/Phone [address] [facility] [address] (home) Emergency Contact Extended Emergency Contact Information Primary Emergency Contact: Asia Phillips Mobile Relation: None Healthcare Directive Healthcare Directive: Yes, patient has a healthcare directive Type of Healthcare Directive: Durable power of ip technology transactions attorney for healthcare Would patient like to fill out a (a new) Healthcare Directive?: N/A DPOA onfile naming daughter. Transportation Does the patient need discharge transport arranged?: No Transportation Name, Phone and Availability #1: [id number] Expected Discharge Date Expected Discharge Date: 06/20/17 [...] PCP Jeremy Graf in [place] ? Pharmacy [facility] - [place], [place] - [address] [facility] [address] ? Durable Medical Equipment Durable Medical Equipment at home: Roller Walker, Single Point Cane ? Home Health Receiving home health: In the past Agency name: [facility] Would patient use this agency again?: [...] hip surgery Name of rehab location/group: [facility] Would patient return for future services?: Yes OT: In the past When did patient receive care?: After Hip Surgery Name of rehab location/group: [facility] Would patient return for future services?: Yes ? Longterm Facility/Long Term SNF: No NH: No ? Inpatient Rehab IPR: No ? Long-Term Acute Care Hospital LTACH: No ? Acute Hospital Stay Acute Hospital Stay: In the past Weekend SW: Jane Garcia LMSW [phone] (phone) [phone] (pager) in this encounter Plan of Treatment [...] MG/DL Specimen Performing Laboratory MAIN LAB [address] [place] [address] * POC GLUCOSE (06/20/2017 7:28 AM) Component Value Ref Range Glucose, POC 146 (H) 70 - 100 MG/DL Specimen Performing Laboratory MAIN LAB [address] [place] [address] * POC GLUCOSE (06/20/2017 2:26 AM) Component Value Ref Range Glucose, POC 180 (H) 70 - 100 MG/DL Specimen Performing Laboratory [facility] [address] [place] [id number] * URINALYSIS MICROSCOPIC REFLEX TO CULTURE (06/20/2017 2:10 AM) Component Value Ref Range WBCs,UA 0-2 0 - 2 /HPF RBCs,UA NONE 0 - 3 /HPF Comment,UA Urine submitted for reflex culture if criteria are met:WBC>10, positive nitrite and/or >=1+ leukocyte esterase. If quantity is not sufficient, an addendum will follow. Specimen Performing Laboratory Urine [address] [address] * URINALYSIS DIPSTICK REFLEX TO CULTURE (06/20/2017 2:10 AM) Component Value Ref Range Color,UA STRAW Turbidity,UA CLEAR CLEAR-CLEAR Specific [place]-Urine 1.008 1.003 - 1.035 pH,UA 7.0 5.0 - 8.0 Protein,UA NEG NEG-NEG Glucose,UA 1+ (A) NEG-NEG Ketones,UA NEG NEG-NEG Bilirubin,UA NEG NEG-NEG Blood,UA NEG NEG-NEG Urobilinogen,UA NORMAL NORM-NORMAL Nitrite,UA NEG NEG-NEG Leukocytes,UA NEG NEG-NEG Urine Ascorbic Acid, UA NEG NEG-NEG Specimen Performing Laboratory Urine [address] [address] * POC GLUCOSE (06/19/2017 8:15 PM) Component Value Ref Range Glucose, POC 142 (H) 70 - 100 MG/DL Specimen Performing Laboratory [facility] [address] [place] [address] * POC GLUCOSE (06/19/2017 6:09 PM) Component Value Ref Range Glucose, POC 186 (H) 70 - 100 MG/DL Specimen Performing Laboratory [facility] [address] [place] [address] * POC GLUCOSE (06/19/2017 12:38 PM) Component Value Ref Range Glucose, POC 261 (H) 70 - 100 MG/DL Specimen Performing Laboratory [facility] [address] [place] [address] * POC GLUCOSE (06/19/2017 8:28 AM) Component Value Ref Range Glucose, POC 151 (H) 70 - 100 MG/DL Specimen Performing Laboratory [facility] [address] [place] [address] * POC GLUCOSE (06/19/2017 2:42 AM) Component Value Ref Range Glucose, POC 221 (H) 70 - 100 MG/DL Specimen Performing Laboratory [facility] [address] [place] [address] * POC GLUCOSE (06/18/2017 8:33 PM) Component Value Ref Range Glucose, POC 238 (H) 70 - 100 MG/DL Specimen Performing Laboratory [facility] [address] [place] [address] * POC GLUCOSE (06/18/2017 6:20 PM) Component Value Ref Range Glucose, POC 184 (H) 70 - 100 MG/DL Specimen Performing Laboratory [facility] [address] [place] [address] * POC GLUCOSE (06/18/2017 11:07 AM) Component Value Ref Range Glucose, POC 186 (H) 70 - 100 MG/DL Specimen Performing Laboratory [facility] [address] [place] [address] * PHOSPHORUS (06/18/2017 1:30 AM) Component Value Ref Range Phosphorus 3.0 2.0 - 4.0 MG/DL Specimen Performing Laboratory Blood [facility] [address] [place] [address] * MAGNESIUM (06/18/2017 1:30 AM) Component Value Ref Range Magnesium 1.9 1.6 - 2.6 mg/dL Specimen Performing Laboratory Blood [facility] [address] [place] [address] * CBC AND DIFF (06/18/2017 1:30 AM) [...] Performing Laboratory [facility] [address] [place] [address] * BASIC METABOLIC PANEL (06/18/2017 1:30 AM) [...] Performing Laboratory [facility] [address] [place] [address] * MRI HEAD WO/W CONTRAST (06/18/2017 12:38 [...] 70 - 100 MG/DL Specimen Performing Laboratory [facility] [address] [place] [address] * SURGICAL PATHOLOGY (06/17/2017 5:11 PM) Component Value Ref Range PATHOLOGY REPORT [facility] [email or web address] Department of Pathology and Laboratory Medicine [address] [place] [address] Surgical Pathology Office:[phone]:[phone] SURGICAL PATHOLOGY REPORT NAME: ABEBA PHILLIPS SURG PATH #: [id number] MR #: [id number] SPECIMEN CLASS: [facility] BILLING #: [id number] ALT ID #:LOCATION: [facility] DATE OF PROCEDURE: 06/17/2017 AGE:77 SEX: F DATE RECEIVED: 06/17/2017 : 1940TIME RECEIVED:17:11 PHYSICIAN: FEDERICO CHAKRABORTY MD DATE OF REPORT: 06/20/2017 COPY TO:DATE OF PRINTIN06/20/2017 ################################################## ###################### Final Diagnosis: A. 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 B. Brain, "left frontal tumor", left frontal craniotomy: GLIOBLASTOMA, IDH1 [id number], WHO GRADE IV See comment. Comment: The [...] Coffman, et al 2014, Neuro Oncol [phone]. Pursuant to the [employer] Program at the [facility] Pathology Department, selected slides from this case [...] the remnant being placed in cassette A1FS. [employer] sections are submitted in cassettes A2-A7. ([facility]) B. received in formalin, labeled with the patient's name and "left frontal tumor" is a regular, unoriented, portion of brain measuring 5.6 x 4.1 x 3.2 cm. Surgical resection margins inked block the neural surface is garcia-tomlinson with visible sulci and gyri. Specimen is serially sectioned to reveal a friable, garcia-yellow cut surface. Represent sections of the specimen are submitted in cassettes B1-B5.([facility]) 06/17/2017 Intraoperative Consultation: A1FS, smears, brain, "left frontal [...] of Pathology and Laboratory Medicine of the [facility] ([employer]) in compliance with [...] of Pathology and Laboratory Medicine of the [facility].It has not been cleared or approved by the FDA.The FDA has determined that such clearance or approval is not necessary. Professional services performed by [facility], at [address] [place] [address] Specimen Performing Laboratory [facility] RESULTS * LACTIC ACID (BG - RAPID LACTATE) (06/17/2017 3:50 PM) Component Value Ref Range Lactic Acid,BG 1.2 0.5 - 2.0 MMOL/L Specimen Performing Laboratory [facility] [address] [place] [address] * POTASSIUM, BG (06/17/2017 3:50 PM) Component Value Ref Range Potassium 3.4 (L) 3.5 - 5.1 MMOL/L Specimen Performing Laboratory [facility] [address] [place] [address] * SODIUM,BG (06/17/2017 3:50 PM) Component Value Ref Range Sodium 130 (L) 137 - 147 MMOL/L Specimen Performing Laboratory Blood [facility] [address] [place] [address] * IONIZED CALCIUM,BG (06/17/2017 3:50 PM) Component Value Ref Range Ionized Calcium 1.17 1.0 - 1.3 MMOL/L Specimen Performing Laboratory Blood [facility] [address] [place] [address] * GLUCOSE,BG (06/17/2017 3:50 PM) Component Value Ref Range Glucose 132 (H) 70 - 100 MG/DL Specimen Performing Laboratory Blood [facility] [address] [place] [address] * BLOOD GASES, ARTERIAL (06/17/2017 3:50 PM) Component Value Ref Range pH-Arterial 7.39 7.35 - 7.45 pCO2-Arterial 37 35 - 45 MMHG pO2-Arterial 364 (H) 80 - 100 MMHG Base Deficit-Arterial 2.5 MMOL/L O2 Sat-Arterial 99.7 (H) 95 - 99 % Nrcyiqrxjzi-NQQ-Pns 22.4 21 - 28 MMOL/L Specimen Performing Laboratory Blood, arterial - Blood [facility] [address] [place] [address] * HEMOGLOBIN & HEMATOCRIT, BG (06/17/2017 3:50 PM) Component Value Ref Range Hemoglobin BG 11.9 (L) 12.0 - 15.0 GM/DL Hematocrit BG 36.8 36 - 45 % Specimen Performing Laboratory [facility] [address] [place] [address] * POC GLUCOSE (06/17/2017 12:56 PM) Component Value Ref Range Glucose, POC 140 (H) 70 - 100 MG/DL Specimen Performing Laboratory [facility] [address] [place] [address] * POC GLUCOSE (06/17/2017 7:42 AM) Component Value Ref Range Glucose, POC 158 (H) 70 - 100 MG/DL Specimen Performing Laboratory [facility] [address] [place] [address] * PHOSPHORUS (06/17/2017 5:06 AM) Component Value Ref Range Phosphorus 3.3 2.0 - 4.0 MG/DL Specimen Performing Laboratory Blood [facility] [address] [place] [address] * MAGNESIUM (06/17/2017 5:06 AM) Component Value Ref Range Magnesium 2.0 1.6 - 2.6 mg/dL Specimen Performing Laboratory Blood [facility] [address] [place] [address] * CBC AND DIFF (06/17/2017 5:06 AM) [...] - 0.20 K/UL Specimen Performing Laboratory Blood [facility] [address] [place] [address] * BASIC METABOLIC PANEL (06/17/2017 5:06 AM) [...] Pharmacist for questions. Specimen Performing Laboratory Blood [facility] [address] [place], [place] [id number] * POC GLUCOSE (06/16/2017 9:09 PM) Component Value Ref Range Glucose, POC 157 (H) 70 - 100 MG/DL Specimen Performing Laboratory [facility] [address] [place] [address] * POC GLUCOSE (06/16/2017 6:01 PM) Component Value Ref Range Glucose, POC 142 (H) 70 - 100 MG/DL Specimen Performing Laboratory [facility] [address] [place] [address] * POC GLUCOSE (06/16/2017 11:34 AM) Component Value Ref Range Glucose, POC 167 (H) 70 - 100 MG/DL Specimen Performing Laboratory [facility] [address] [place] [address] * POC GLUCOSE (06/16/2017 8:41 AM) Component Value Ref Range Glucose, POC 189 (H) 70 - 100 MG/DL Specimen Performing Laboratory [facility] [address] [place] [address] * BLOOD TYPE CONFIRMATION - ORDER ONLY IF REQUESTED BY LAB (06/16/2017 6:20 AM) Component Value Ref Range ABO/RH(D) O POS Specimen Performing Laboratory Blood [facility] [address] [place] [address] * TYPE & CROSSMATCH (06/16/2017 5:55 AM) Component Value Ref Range Units Ordered 2 Crossmatch Expires 06/19/2017 Record Check 2ND TYPE REQUIRED ABO/RH(D) O POS Antibody Screen NEG Electronic Crossmatch YES Specimen Performing Laboratory [facility] [address] [place], [place] [id number] * PHOSPHORUS (06/16/2017 4:38 AM) Component Value Ref Range Phosphorus 3.4 2.0 - 4.0 MG/DL Specimen Performing Laboratory [facility] [address] [place] [address] * MAGNESIUM (06/16/2017 4:38 AM) Component Value Ref Range Magnesium 2.0 1.6 - 2.6 mg/dL Specimen Performing Laboratory [facility] [address] [place], [place] [id number] * CBC AND DIFF (06/16/2017 4:38 AM) [...] K/UL Specimen Performing Laboratory [facility] [address] [place], [place] [id number] * BASIC METABOLIC PANEL (06/16/2017 4:38 AM) [...] questions. Specimen Performing Laboratory [facility] [address] [place] [address] * POC GLUCOSE (06/15/2017 8:22 PM) Component Value Ref Range Glucose, POC 166 (H) 70 - 100 MG/DL Specimen Performing Laboratory [facility] [address] [place] [address] * POC GLUCOSE (06/15/2017 4:56 PM) Component Value Ref Range Glucose, POC 146 (H) 70 - 100 MG/DL Specimen Performing Laboratory [facility] [address] [place] [address] * POC GLUCOSE (06/15/2017 12:28 PM) Component Value Ref Range Glucose, POC 141 (H) 70 - 100 MG/DL Specimen Performing Laboratory [facility] [address] [place] [address] * CT ABD/PELV W CONTRAST (06/15/2017 8:23 [...] MG/DL Specimen Performing Laboratory [facility] [address] [place] [id number] * PHOSPHORUS (06/15/2017 4:16 AM) Component Value Ref Range Phosphorus 2.9 2.0 - 4.0 MG/DL Specimen Performing Laboratory [facility] [address] [place] [id number] * MAGNESIUM (06/15/2017 4:16 AM) Component Value Ref Range Magnesium 2.1 1.6 - 2.6 mg/dL Specimen Performing Laboratory [facility] [address] [place] [id number] * CBC AND DIFF (06/15/2017 4:16 AM) [...] Specimen Performing Laboratory [facility] [address] [place] [address] * BASIC METABOLIC PANEL (06/15/2017 4:16 AM) [...] Specimen Performing Laboratory [facility] [address] [place] [address] * POC GLUCOSE (06/14/2017 8:37 PM) Component Value Ref Range Glucose, POC 143 (H) 70 - 100 MG/DL Specimen Performing Laboratory [facility] [address] [place] [address] * POC GLUCOSE (06/14/2017 6:55 PM) Component Value Ref Range Glucose, POC 151 (H) 70 - 100 MG/DL Specimen Performing Laboratory [facility] [address] [place] [address] * POC GLUCOSE (06/14/2017 11:51 AM) Component Value Ref Range Glucose, POC 151 (H) 70 - 100 MG/DL Specimen Performing Laboratory [facility] [address] [place] [address] * MRI HEAD W CONTRAST (06/14/2017 11:00 AM) Specimen Performing Laboratory [facility] RESULTS Impressions 1. Persistent large necrotic enhancing left frontal cerebral mass, most consistent with glioblastoma. 2. Associated oeuk-mg-llhdn midline shift and mild transient or herniation. [...] mass, most consistent with glioblastoma. 2. Associated zfvu-gh-gurub midline shift and mild transient or herniation. [...] 0-2 Specimen Performing Laboratory [facility] [address] [place] [address] * URINALYSIS DIPSTICK REFLEX TO CULTURE (06/14/2017 8:56 AM) Component Value Ref Range Color,UA YELLOW Turbidity,UA CLEAR CLEAR-CLEAR Specific [place]-Urine 1.013 1.003 - 1.035 pH,UA 7.0 5.0 - 8.0 Protein,UA NEG NEG-NEG Glucose,UA 3+ (A) NEG-NEG Ketones,UA TRACE (A) NEG-NEG Bilirubin,UA NEG NEG-NEG Blood,UA NEG NEG-NEG Urobilinogen,UA INCREASED (A) NORM-NORMAL Nitrite,UA NEG NEG-NEG Leukocytes,UA NEG NEG-NEG Urine Ascorbic Acid, UA NEG NEG-NEG Specimen Performing Laboratory U[facility] [address] [place] [address] * POC GLUCOSE (06/14/2017 6:32 AM) Component Value Ref Range Glucose, POC 177 (H) 70 - 100 MG/DL Specimen Performing Laboratory [facility] [address] [place] [address] * HEMOGLOBIN A1C (06/14/2017 3:25 AM) Component Value Ref Range Hemoglobin A1C 6.3 (H) 4.0 - 6.0 % Comment: The ADA recommends that most patients with type 1 and type 2 diabetes maintain an A1c level <7%. Specimen Performing Laboratory [facility] [address] [place] [address] * IONIZED CALCIUM (06/14/2017 3:25 AM) Component Value Ref Range Ionized Calcium 1.17 1.0 - 1.3 MMOL/L Specimen Performing Laboratory [facility] [address] [place] [address] * PHOSPHORUS (06/14/2017 3:25 AM) Component Value Ref Range Phosphorus 1.9 (L) 2.0 - 4.0 MG/DL Specimen Performing Laboratory [facility] [address] [place] [address] * MAGNESIUM (06/14/2017 3:25 AM) Component Value Ref Range Magnesium 2.8 (H) 1.6 - 2.6 mg/dL Specimen Performing Laboratory [facility] [address] [place] [address] * CBC AND DIFF (06/14/2017 3:25 AM) [...] Specimen Performing Laboratory [facility] [address] [place] [address] * BASIC METABOLIC PANEL (06/14/2017 3:25 AM) [...] questions. Specimen Performing Laboratory [facility] [address] [place] [address] * PHOSPHORUS (06/13/2017 8:45 PM) Component Value Ref Range Phosphorus 2.5 2.0 - 4.0 MG/DL Specimen Performing Laboratory [facility] [address] [place] [address] * MAGNESIUM (06/13/2017 8:45 PM) Component Value Ref Range Magnesium 1.6 1.6 - 2.6 mg/dL Specimen Performing Laboratory [facility] [address] [place] [address] * IONIZED CALCIUM (06/13/2017 8:45 PM) Component Value Ref Range Ionized Calcium 1.17 1.0 - 1.3 MMOL/L Specimen Performing Laboratory [facility] [address] [place] [address] * COMPREHENSIVE METABOLIC PANEL (06/13/2017 8:45 PM) [...] questions. Specimen Performing Laboratory [facility] [address] [place] [address] * PTT (APTT) (06/13/2017 8:45 PM) Component Value Ref Range APTT 25.5 21.0 - 39.0 SEC Specimen Performing Laboratory [facility] [address] [place] [address] * PROTIME INR (PT) (06/13/2017 8:45 PM) Component Value Ref Range INR 1.0 0.8 - 1.2 Specimen Performing Laboratory [facility] [address] [place] [address] * CBC AND DIFF (06/13/2017 8:45 PM) [...] Performing Laboratory [facility] [address] [place] [address] * CT HEAD EXTERNAL IMAGING (06/07/2017 12:15 AM) Narrative This order has been auto finalized and does not contain a result. in this encounter Visit Diagnoses Diagnosis Brain tumor (HCC) Neoplasm of unspecified nature of brain Admitting Diagnoses Diagnosis Brain lesion GBM (glioblastoma [...] DAILY Given 06/19/2017 650 mg 21:39 CDT bacitracin (BACIIM) 50,000 Units in Given 06/17/2017 500 mL Ringer's 500 mL irrigation bottle 14:29 CDT 500 mL, INTRA-PROCEDURE MED, Starting 06/17/17 at 1429, Until 06/17/17 at 1834, Intra-op bacitracin topical ointment Given 06/17/2017 1 Dose INTRA-PROCEDURE MED, Starting 06/17/17 14:29 CDT at 1429, Until 06/17/17 at 1834, Intra-op Given 06/17/2017 1 Dose 18:00 CDT dexamethasone (DECADRON) tablet 4 mg Given 06/19/2017 4 mg 4 mg, Oral, EVERY 8 HOURS, First dose 21:39 CDT on Sat06/19/17 at 2200, Until Discontinued Given 06/20/2017 4 mg 06:13 CDT docusate (COLACE) capsule 100 mg Given 06/18/2017 100 mg 100 mg, Oral, TWICE DAILY, First dose on 21:08 CDT Margaret 06/13/17 at 2100, Until Discontinued, Hold for loose stools Given 06/19/2017 100 mg 08:55 CDT Given 06/19/2017 100 mg 21:39 CDT heparin (porcine) PF syringe 5,000 Units Given 06/19/2017 5,000 Units Abdominal 5,000 Units, Subcutaneous, EVERY 8 21:39 CDT Tissue HOURS, First dose on Sat06/19/17 at 2100, Until Discontinued, NOTE: This is a HIGH ALERT Medication. Given 06/20/2017 5,000 Units Abdominal 06:13 CDT Tissue hydroCHLOROthiazide (HYDRODIURIL) tablet Given 06/18/2017 25 mg [...] , , administer 1 unit insulin, at 21, 03* administer 0 units. -POC glucose 181-220mg/dL at , , administer 2 units insulin, at 21, 03* administer 1 unit. -POC glucose 221-260mg/dL at , , administer 3 units insulin, at 21, 03* administer 2 units. -POC glucose 261-300mg/dL at , , administer 4 units insulin, at 21, 03* administer 3 units. -POC glucose 301-350mg/dL at , , 17 administer 5 units insulin, at 21, 03* administer 4 units. -POC glucose 351-400mg/dL at , , administer 6 units insulin, at 21, 03* administer 5 units. -POC glucose >400mg/dL at , , 17 administer 7 units insulin, at 21, 03* administer 6 units. *only if ordered 5x's [...] Given 06/20/2017 1 Units Abdomen:LLQ 12:01 CDT levETIRAcetam (KEPPRA) tablet 500 mg Given 06/19/2017 500 mg 500 mg, Oral, TWICE DAILY, First dose on 08:55 CDT 06/18/17 at 1000, Until Discontinued Given 06/19/2017 500 mg 21:39 CDT Given 06/20/2017 500 mg 08:13 CDT lidocaine 1%/EPINEPHrine 1:100,000 Given 06/17/2017 10 mL injection 15:48 CDT INTRA-PROCEDURE MED, Starting 06/17/17 at 1548, Until 06/17/17 at 1834, Intra-op lisinopril (PRINIVIL; ZESTRIL) tablet 40 Given 06/18/2017 40 mg mg 08:08 CDT 40 mg, Oral, DAILY, First dose on 06/15/17 at 0900, Until Discontinued Given 06/19/2017 40 mg 08:55 CDT Given 06/20/2017 40 mg 08:13 CDT milk of magnesia (CONC) oral suspension Given 06/16/2017 10 mL 10 mL 08:11 CDT 10 mL, Oral, DAILY, First dose on Margaret 06/13/17 at 1945, Until Discontinued, May hold if BM within 24 hours of dose. 10 mL CONC=30 mL MOM Given 06/18/2017 10 mL 09:44 CDT Given 06/19/2017 10 mL 08:55 CDT senna/docusate (SENOKOT-S) tablet 1 Given 06/18/2017 1 tablet tablet 21:08 CDT 1 tablet, Oral, TWICE DAILY, First dose on Margaret 06/13/17 at 2100, Until Discontinued, Hold for loose stools. If patient unable to take tablet, give 10 mL of senna/docusate (SENOKOT-S) solution. Send [employer] message to pharmacy. Given 06/19/2017 1 tablet 08:55 CDT Given 06/19/2017 1 tablet 21:38 CDT temazepam (RESTORIL) capsule 7.5 mg Given 06/14/2017 7.5 mg 7.5 mg, Oral, AT BEDTIME PRN, Starting 21:34 CDT 06/14/17 at 2107, Until Margaret 06/20/17 at 1611, Insomnia Given 06/15/2017 7.5 mg 22:45 CDT Given 06/16/2017 7.5 mg 21:43 CDT in this encounter
--- OUTSIDE RECORDS SUMMARY | 2017-06-20 16:51 | XMS REPORT | Encounter Summary ---
Author Author [facility] Organization [facility] Address Unknown Phone Unavailable Care Team Providers Care Real Estate Consultant Name Role Phone Jeremy Graf MD PCP Reason for Visit * Auth/Cert Status Reason Specialty Diagnoses / Referred By Referred To Procedures Contact Contact Diagnoses Brain tumor (HCC) Brain lesion GBM (glioblastoma multiforme) (HCC) Encounter Details Date Type Department Care Team Description 06/17/2017 Anesthesia CA Operating Room Angelito Grey, JUHI Event [address] [place] [address] Anesthesia Record Procedure Name Responsible Anesthesia Start Time Anesthesia Stop Time Anesthesiologist CRANIOTOMY FOR LEFT Wilber Pichardo, 06/17/17 1427 06/17/17 1825 FRONTAL TUMOR RESECTION MD WITH NAVIGATION (Left Head) Date Time Event Comment 1256 AN Equip Check 2017 142 Anes Start 1429 Out of Pre Procedure 1429 In Room 1430 An Start Data 1436 An Induction The patient was reevaluated immediately before moderate or deep sedation use and before anesthesia induction. 1439 An Intubation 1444 Line Placement 1446 Quick Note NIBP stopped for placement of art line. Unsuccessful attempt with palpation 1500 Anesthesia Ready 1511 Art Line 1516 Quick Note Spinning the bed 180 1522 Quick Note [place] not correlating with cuff pressure, adjusting system 1532 Quick Note Pins 1549 Proc Start 1624 Quick Note See labs. FIO2 reduced 1803 An Extubation 1805 an stop data 182 Handoff to RN I completed my SBAR handoff to the receiving nurse. 1824 An Stop Meds Name Total midazolam (VERSED) 1 mg/mL injection 1 mg propofol (DIPRIVAN) 200 mg/ 20 mL 50 mg injection (VIAL) rocuronium (ZEMURON) injection 50 mg dexamethasone (DECADRON) 4 mg/mL 10 mg injection ondansetron (ZOFRAN) injection 4 mg remifentanil (ULTIVA) 1 mg/3 mL 1,000 582.99 mcg mcg in sodium chloride 0.9% (NS) 20 mL Injection phenylephrine (LUTHER-SYNEPHRINE) 0.1 mg/mL 300 mcg injection (SYRINGE) ePHEDrine 50 mg/mL 50 mg in sodium 20 mg chloride PF 0.9% 5 mL IV syringe ceFAZolin (ANCEF) injection 2 g levETIRAcetam (KEPPRA) 500 mg in sodium 500 mg chloride 0.9% (NS) 100 mL IVPB mannitol (OSMITROL) 20 % infusion 30 g fentaNYL citrate PF (SUBLIMAZE) 100 mcg injection 25-50 mcg propofol (DIPRIVAN) infusion 1,109.62 mg phenylephrine (LUTHER-SYNEPHRINE) 10 mg in 0.47 mg sodium chloride 0.9% (NS) 250 mL IV drip (std conc) acetaminophen (OFIRMEV) 1,000 mg 1,000 mg injection sugammadex (BRIDION) 100 mg/mL iv soln 113 mg hydrALAzine (APRESOLINE) injection 10 mg esmolol (BREVIBLOC) 10 mg/mL injection 60 mg sodium chloride 0.9 % infusion 600 mL sodium chloride 0.9 % infusion (1000 650 mL mL bag) albumin 5% infusion (500 mL) 500 mL * Name N2O Inspired Sevoflurane Inspired Sevoflurane * No blood administrations on file. Type Details Placement Removal Wounds 06/17/17; 1625; Head; Surgical Incision; 06/17/17 1625 by (NOT for Staple, bacitracin ointment, xeroform, Francoise Chacon RN Pressure telfa and liz Injuries) Peripheral 06/13/17; 2039; IV Therapy; L; Hand; 20 06/13/172039 by Ibsanjana , 06/20/17 0600 by Kb, IV G; No; 1; 06/20/17; 0600 ALISON Harris RN Peripheral 06/17/17; 0603; RN; L; Inner; Forearm; 06/17/17 0603 by Steff, 06/20/17 1245 by Kb, IV 22 G; 2; 06/20/17; 1245 ALISON Perla RN ETT 06/17/17; 1439; Ventilated by mask (1); 06/17/17 1439 by 06/17/17 1803 by Direct laryngoscopy; Single-Lumen, Norah Lindsey CRNA [place], Joseph, CRNA Cuffed; 8mm; Mac; 3; Oral; 1-Full view of the glottis; 1 insertion attempt; Auscultation, ETCO2 Detector; 23 centimeters; 06/17/17; 1803 Indwelling 06/17/17; 1448; (operating room ); 16 06/17/17 1448 by 06/18 1100 by Kenna Adame FR (temp sensing); Regular (Two-way); Francoise Chacon RN Hannah, RN Catheter 06/18/17; 1100 in this encounter Social History Tobacco Use Types Packs/Day Years Used Date Former Smoker Cigarettes 2 30 Quit: 12/14/2016 Comments: Long-term smoker; 2 packs per day Alcohol Use Drinks/Week oz/Week Comments No Sex Assigned at Date Recorded Not on file as of this encounter Functional Status Functional Status Response Date of Assessment Does the patient have a hearing impairment: No 06/14/2017 as of this encounter OR Notes * Anesthesia Procedure Notes - Wilber Pichardo MD - 06/17/2017 8:18 PM CDT Associated Order(s): ANESTHESIA ARTERIAL LINE INSERTION Anesthesia Procedure: Arterial Line Placement A-LINE INSERTION Date/Time: 06/17/2017 3:11 PM Patient location: OR Indications: multiple ABGs and hemodynamic monitoring Preprocedure checklist performed: 2 patient identifiers, risks & benefits discussed, patient evaluated, timeout performed, consent obtained and patient being monitored Arterial Line Procedure Patient sedated: yes (see MAR) Sedation type: general; Artery prepped with chlorhexidine; skin prep agent completely dried prior to procedure. Location: radial artery Laterality: right Technique: palpation and ultrasound Needle gauge: 20 G Number of attempts: 3 Procedure Outcome Catheter secured with adhesive dressing applied Events: no complications noted during insertion and skin intact, warm, and dry Observation: pt tolerated well Additional notes: 3 attempt on R radial and 1 attempt at L radial art line placement with palpation by SRNA's. Successful placement of art line by JUHI using ultrasound under my direct supervision. Soo Pichardo 06/17/2017 Performed by: WILBER PICHARDO Authorized by: WILBER PICHARDO * Anesthesia Postprocedure Evaluation - Pierre Jean Baptiste CRNA - 06/17/2017 6: 34 PM CDT Post-Anesthesia Evaluation Name: Abeba Phillips : 1940 Age: 77 y.o. Sex: female Procedure Date: 06/17/2017 Procedure: Procedure(s) with comments: CRANIOTOMY FOR LEFT FRONTAL TUMOR RESECTION WITH NAVIGATION - CASE LENGTH 4 HOURS, SUPINE, REQUEST 1430 START Surgeon: Surgeon(s): Bia Chakraborty MD Jack, Megan, MD Post-Anesthesia Vitals BP: (158)/(78) Pulse: [91] SpO2: [100 %] Post Anesthesia Evaluation Note Evaluation location: ICU Patient participation: recovered; patient unable to participate at baseline Level of consciousness: sleepy but conscious Pain management: adequate Hydration: normovolemia Temperature: 36.0C - 38.4C Airway patency: adequate Perioperative Events Perioperative events: no Post-op nausea and vomiting: no PONV Postoperative Status Cardiovascular status: hemodynamically stable Respiratory status: spontaneous ventilation and supplemental oxygen Additional comments: Pt transported to ICU on 100% O2, VSS & SV throughout. Accompanied by SURGICAL NURSE, Anesthesiologist, & surgical garment assembler Perioperative Events Perioperative Event: No Emergency Case Activation: No Associated attestation - Wilber Pichardo MD - 06/17/2017 8:09 PM CDT Formatting of this note may be different from the original. Ventilator settings: N/A Vasoactive Drips: N/A Blood products/Hemostatic Agents/Anticoagulants: N/A Special Considerations: N/A Patient was transported with supplemental oxygen and routine cardiovascular monitoring, including pulse oximetry. Individuals present during transport include MDA, SURGICAL NURSE and surgical garment assembler. The patient was admitted to the ICU under care of the critical care team. This information was communicated between anesthesia and the receiving team. ATTESTATION Post-Anesthesia Evaluation and ICU Transfer Note Attestation: I evaluated the patient and the indicated post-anesthesia care is discharge and transfer to the ICU physician-lead team. Staff name: Wilber Pichardo MD Date: 06/17/2017 * Anesthesia Preprocedure Evaluation - Norah Lindsey CRNA - 06/14/2017 3:15 PM CDT Formatting of this note may be different from the original. Anesthesia Pre-Procedure Evaluation Name: Abeba Phillips : 1940 Age: 77 y.o. Sex: female Procedure Date: 06/17/2017 Procedure: Procedure(s) with comments: CRANIOTOMY FOR LEFT FRONTAL TUMOR RESECTION WITH NAVIGATION - CASE LENGTH 4 HOURS, SUPINE, REQUEST 1430 START Physical Assessment Vital Signs (last filed in past 24 hours): BP: 138/75 (06/15 1199) Temp: 36.8 C (98.2 F) (06/15 1199) Pulse: 66 (06/15 1199) Respirations: 15 PER MINUTE (06/15 1199) SpO2: 98 % (06/15 1199) O2 Delivery: None (Room Air) (06/15 1199) Height: 162.6 cm (64") (06/13 1932) Weight: 56.6 kg (124 lb 12.5 oz) (06/13 1932) Patient History Allergies Allergen Reactions Compazine [Prochlorperazine Edisylate] UNKNOWN Losartan UNKNOWN Sulfa (Sulfonamide Antibiotics) UNKNOWN Current Medications Medication Directions hydroCHLOROthiazide (HYDRODIURIL) 25 mg tablet Take 25 mg by mouth every morning. lisinopril (PRINIVIL; ZESTRIL) 20 mg tablet Take 40 mg by mouth daily. temazepam (RESTORIL) 15 mg capsule Take 15 mg by mouth at bedtime as needed for Sleep. Review of Systems/Medical History Patient summary reviewed Nursing notes reviewed Pertinent labs reviewed PONV Screening: Female gender, Postoperative opioids, Hx PONV/motion sickness and Non-smoker No history of anesthetic complications No family history of anesthetic complications Pulmonary Smoker: Former smoker, 60 pack years. No indications/hx of pneumonia No shortness of breath (on exertion) No sleep apnea R middle lobectomy in 2016. Cardiovascular Exercise tolerance: <4 METS Beta David therapy: No Hypertension ( HCTZ, lisinopril), well controlled No dyspnea on exertion (s/p R middle lobectomy 2016.) GI/Hepatic/Renal - negative No GERD, No electrolyte problems Transplant: mild hypokalemia. 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 Pt. Presented with falls. Altered mental status. Clinically improved. 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 large left frontal lobe mass) Physical Exam Airway Findings Mallampati: III TM distance: >3 FB Neck ROM: full Mouth opening: good Airway patency: adequate Dental Findings: Negative Cardiovascular Findings: Rhythm: regular Rate: normal Pulmonary Findings: Decreased breath sounds (RLL s/p lobectomy). Abdominal Findings: Negative Neurological Findings: Altered mental status (A/0x3 but struggles with word finding) Comments: Difficulty with word finding. States improved with steroid use Diagnostic Tests Hematology: Lab Results Component Value Date HGB 11.8 06/14/2017 HCT 34.7 06/14/2017 PLTCT 319 06/14/2017 WBC 10.5 06/14/2017 NEUT 86 06/14/2017 ANC 9.00 06/14/2017 ALC 0.60 06/14/2017 DELANO 8 06/14/2017 AMC 0.90 06/14/2017 EOSA 0 06/14/2017 ABC 0.00 06/14/2017 MCV 70.3 06/14/2017 MCH 23.8 06/14/2017 MCHC 33.9 06/14/2017 MPV 8.6 06/14/2017 RDW 14.6 06/14/2017 General Chemistry: Lab Results Component Value Date NA 134 06/14/2017 K 3.3 06/14/2017 CL 102 06/14/2017 CO2 26 06/14/2017 GAP 6 06/14/2017 BUN 18 06/14/2017 CR 0.54 06/14/2017 GLU 275 06/14/2017 CA 9.5 06/14/2017 ALBUMIN 4.1 06/13/2017 OBSCA 1.17 06/14/2017 MG 2.8 06/14/2017 TOTBILI 0.5 06/13/2017 PO4 1.9 06/14/2017 Coagulation: Lab Results Component Value Date PTT 25.5 06/13/2017 INR 1.0 06/13/2017 Anesthesia Plan ASA score: 3 Plan: general and invasive monitoring Induction method: intravenous NPO status: acceptable Informed Consent Anesthetic plan and risks discussed with patient. Use of blood products discussed with patient and legal guardian; consented to blood products. Plan discussed with: SRNA, anesthesiologist and SURGICAL NURSE. in this encounter Plan of Treatment Name Priority Associated Diagnoses Date/Time ANESTHESIA ARTERIAL LINE INSERTION Routine 06/17/2017 8:18 PM CDT as of this encounter Visit Diagnoses Not on filein this encounter Administered Medications Medication Order MAR Action Action Date Dose Rate Site acetaminophen (OFIRMEV) injection Given 06/17/2017 1,000 mg Administer over 15 Minutes, 17:49 CDT INTRA-PROCEDURE MED, Starting 06/17/17 at 1749, Until Sat06/17/17 at 1827, Pain non-opioid: may be used alone or in combination with opioid analgesia, Anesthesia Intra-op albumin 5% infusion (500 mL) Given - New 06/17/2017 INTRA-PROCEDURE MED(CONT), Starting Mon Bag 17:00 CDT 06/17/17 at 1700, Until Sat06/17/17 at 1827, Anesthesia Intra-op ceFAZolin (ANCEF) injection Given 06/17/2017 2 g INTRA-PROCEDURE MED, Starting Sat06/17/17 15:40 CDT at 1540, Until Sat06/17/17 at 1827, Anesthesia Intra-op dexamethasone (DECADRON) injection Given 06/17/2017 10 mg Intravenous, INTRA-PROCEDURE MED, 15:40 CDT Starting 06/17/17 at 1540, Until Sat06/17/17 at 1827, Nausea/Vomiting Injectable, Anesthesia Intra-op ePHEDrine 50 mg/mL 50 mg in sodium Given - New 06/17/2017 15 mg chloride PF 0.9% 5 mL IV syringe Bag 14:50 CDT 5 mL, INTRA-PROCEDURE MED(CONT), Starting Mon /7/18 at 1450, Until Discontinued, Anesthesia Intra-op Bolus 06/17/2017 5 mg 15:09 CDT esmolol (BREVIBLOC) injection Given 06/17/2017 10 mg INTRA-PROCEDURE MED, Starting Sat06/17/17 17:59 CDT at 1800, Until Sat06/17/17 at 1830, Anesthesia Intra-op Given 06/17/2017 20 mg 18:00 CDT Given 06/17/2017 30 mg 18:05 CDT fentaNYL citrate PF (SUBLIMAZE) Given 06/17/2017 50 mcg injection 25-50 mcg 14:36 CDT 25-50 mcg, Intravenous, EVERY 4 HOURS PRN, Starting Sat06/14/17 at 0734, Until Sat06/17/17 at 1835, Pain Injectable Given 06/17/2017 25 mcg 17:54 CDT Given 06/17/2017 25 mcg 18:11 CDT hydrALAZINE (APRESOLINE) injection Given 06/17/2017 10 mg INTRA-PROCEDURE MED, Starting Sat06/17/17 18:11 CDT at 1811, Until Sat06/17/17 at 1830, Systolic Blood Pressure..., Anesthesia Intra-op levETIRAcetam (KEPPRA) 500 mg in sodium Given - New 06/17/2017 500 mg chloride 0.9% (NS) 100 mL IVPB Bag 15:40 CDT 100 mL, Administer over 15 Minutes, INTRA-PROCEDURE MED(CONT), Starting Sat06/17/17 at 1540, Until Sat06/17/17 at 1827, Anesthesia Intra-op mannitol (OSMITROL) 20 % infusion Given 06/17/2017 30 g INTRA-PROCEDURE MED, Starting Sat06/17/17 15:40 CDT at 1540, Until Sat06/17/17 at 1827, Serum Osmolarity..., Anesthesia Intra-op midazolam (VERSED) injection Given 06/17/2017 1 mg Intravenous, INTRA-PROCEDURE MED, 14:27 CDT Starting Sat06/17/17 at 1427, Until Sat06/17/17 at 1827, Agitation Injectable, Anxiety Injectable, Anesthesia Intra-op ondansetron (ZOFRAN) injection Given 06/17/2017 4 mg Intravenous, INTRA-PROCEDURE MED, 17:42 CDT Starting Sat06/17/17 at 1742, Until Sat06/17/17 at 1833, Nausea/Vomiting Injectable, Anesthesia Intra-op phenylephrine (LUTHER-SYNEPHRINE) 10 mg in Given - New 06/17/2017 0.2 17 mL /hr sodium chloride 0.9% (NS) 250 mL IV drip Bag 15:26 CDT mcg/kg/min (std conc) 250 mL, INTRA-PROCEDURE MED(CONT), Starting Sat06/17/17 at 1525, Until Sat06/17/17 at 1827, Anesthesia Intra-op Infusion Restarted 06/17/2017 0.2 17 mL/hr 15:42 CDT mcg/kg/min Dose/Rate Change 06/17/2017 0.2 17 mL/hr 15:55 CDT mcg/kg/min phenylephrine in NS injection syringe Given 06/17/2017 50 mcg Intravenous, INTRA-PROCEDURE MED, 14:50 CDT Starting Sat06/17/17 at 1452, Until Sat06/17/17 at 1827, Symptomatic Hypotension, Anesthesia Intra-op Given 06/17/2017 50 mcg 14:52 CDT Given 06/17/2017 50 mcg 14:53 CDT propofol (DIPRIVAN) infusion Given - New 06/17/2017 100 mL, INTRA-PROCEDURE MED(CONT), Bag 17:13 CDT Starting Sat06/17/17 at 1516, Until Sat06/17/17 at 1827, Anesthesia Intra-op Dose/Rate Change 06/17/2017 100 34 mL/hr 17:38 CDT mcg/kg/min Dose/Rate Change 06/17/2017 75 25.5 mL/hr 17:51 CDT mcg/kg/min propofol (DIPRIVAN) injection Given 06/17/2017 50 mg Intravenous, INTRA-PROCEDURE MED, 15:21 CDT Starting Sat06/17/17 at 1521, Until Sat06/17/17 at 1827, Anesthesia Intra-op remifentanil (ULTIVA) 1 mg/3 mL 1,000 Dose/Rate 06/17/2017 0.03 2 mL/hr mcg in sodium chloride 0.9% (NS) 20 mL Change 17:10 CDT mcg/kg/min Injection Intravenous, INTRA-PROCEDURE MED(CONT), Starting Sat06/17/17 at 1444, Until Sat06/17/17 at 1827, Anesthesia Intra-op Dose/Rate Change 06/17/2017 0.05 3.4 mL/hr 17:25 CDT mcg/kg/min Dose/Rate Change 06/17/2017 0.03 2 mL/hr 17:34 CDT mcg/kg/min rocuronium (ZEMURON) injection Given 06/17/2017 30 mg Intravenous, INTRA-PROCEDURE MED, 14:37 CDT Starting 06/17/17 at 1547, Until 06/17/17 at 1827, Anesthesia Intra-op Given 06/17/2017 20 mg 15:47 CDT sodium chloride 0.9 % infusion Given - New 06/17/2017 INTRA-PROCEDURE MED(CONT), Starting Sat Bag 15:44 CDT 06/17/17 at 1544, Until 06/17/17 at 1827, Anesthesia Intra-op sugammadex (BRIDION) injection Given 06/17/2017 113 mg INTRA-PROCEDURE MED, Starting 06/17/17 17:50 CDT at 1750, Until Sat06/17/17 at 1827, Anesthesia Intra-op in this encounter
--- OUTSIDE RECORDS SUMMARY | 2017-06-20 16:51 | XMS REPORT | Encounter Summary ---
Author Author [facility] Organization [facility] Address Unknown Phone Unavailable Care Team Providers Care Addiction Psychiatrist Name Role Phone Jeremy Graf MD PCP Encounter Details Date Type Department Care Team Description 06/13/2017 Ancillary Rad Outpatient, Radiologist Diagnosis unknown Orders [address] [place] [address] Social History Tobacco Use Types Packs/Day Years Used Date Former Smoker Cigarettes 2 Quit: 12/14/2016 Comments: Long-term smoker; 2 packs per day Alcohol Use Drinks/Week oz/Week Comments No Sex Assigned at Date Recorded Not on file as of this encounter Plan of Treatment Not on fileas of this encounter Results * CT HEAD EXTERNAL IMAGING (06/12/2017) Narrative This order has been auto finalized and does not contain a result. * MRI HEAD EXTERNAL IMAGING (06/07/2017) Narrative This order has been auto finalized and does not contain a result. in this encounter Visit Diagnoses Diagnosis Diagnosis unknown Other unknown and unspecified cause of morbidity or mortality
--- OUTSIDE RECORDS SUMMARY | 2017-06-20 16:51 | XMS REPORT | Encounter Summary ---
Author Author [facility] Organization [facility] Address Unknown Phone Unavailable Care Team Providers Care Land Inspector Name Role Phone PCP Unavailable Encounter Details Date Type Department Care Team Description 06/12/2017 Hospital [facility] Radiology [address] [place] [address] Social History Tobacco Use Types Packs/Day Years Used Date Never Assessed Sex Assigned at Date Recorded Not on [...]
--- OUTSIDE RECORDS SUMMARY | 2017-06-20 16:51 | XMS REPORT | Encounter Summary ---
Author Author [facility] Organization [facility] Address Unknown Phone Unavailable Care Team Providers Care Senior Cyber Security Analyst Name Role Phone PCP Unavailable Encounter Details Date Type Department Care Team Description 06/07/2017 Hospital [facility] Hospital Radiology [address] [place] [address] Social History Tobacco Use Types Packs/Day Years Used Date Never Assessed Sex Assigned at Date Recorded Not on file as of this encounter Plan of Treatment Not on fileas of this encounter Results * MRI HEAD EXTERNAL IMAGING (06/07/2017) Narrative This order has been auto finalized and does not contain a result. in this encounter Visit Diagnoses Diagnosis Diagnosis unknown Other unknown and unspecified cause of morbidity or mortality
--- OUTSIDE RECORDS SUMMARY | 2017-06-20 16:51 | XMS REPORT | Encounter Summary ---
Author Author [facility] Organization [facility] Address Unknown Phone Unavailable Care Team Providers Care Needle Punch Machine Operator Helper Name Role Phone Jeremy Graf MD PCP Encounter Details Date Type Department Care Team Description 06/14/2017 Procedure [id number] [place], [place] [id number] Social History Tobacco Use Types Packs/Day Years [...]
--- OUTSIDE RECORDS SUMMARY | 2017-06-20 16:51 | XMS REPORT | Encounter Summary ---
Author Author [facility] Organization [facility] Address Unknown Phone Unavailable Care Team Providers Care Donor Services Specialist Name Role Phone Jeremy Graf MD PCP Encounter Details Date Type Department Care Team Description 06/14/2017 Procedure [id number] [place], [place] [id number] Social History Tobacco Use Types Packs/Day Years [...]
--- OUTSIDE RECORDS SUMMARY | 2017-06-20 16:51 | XMS REPORT | Encounter Summary ---
Author Author [facility] Organization [facility] Address Unknown Phone Unavailable Care Team Providers Care Architectural Draftsperson Name Role Phone Jeremy Graf MD PCP Encounter Details Date Type Department Care Team Description 06/14/2017 Procedure [id number] [place], [place] [id number] Social History Tobacco Use Types Packs/Day Years [...]
--- OUTSIDE RECORDS SUMMARY | 2017-06-20 16:51 | XMS REPORT | Encounter Summary ---
Author Author [facility] Organization [facility] Address Unknown Phone Unavailable Care Team Providers Care Aircraft Steel Fabricator Name Role Phone PCP Unavailable Encounter Details Date Type Department Care Team Description 06/07/2017 Hospital [facility] Hospital Radiology [address] [place], [place] [id number] Social History Tobacco Use Types Packs/Day Years Used Date Never Assessed Sex Assigned at Date Recorded Not on file as of this encounter Plan of Treatment Not on fileas of this encounter Visit Diagnoses Not on filein this encounter
--- OUTSIDE RECORDS SUMMARY | 2017-06-20 16:53 | XMS REPORT | Continuity of Care Document ---
Author Author [facility] Organization [facility] Address Unknown Phone Unavailable Allergies Active Description Code Type Severity Reaction Onset Reported/Identified Relationship to Patient Clinical Status Yes prochlorperazine [id number] Drug Allergy Unknown N/A 04/15/2008 Yes Sulfa (Sulfonamide Antibiotics) [id number] Drug Allergy Unknown N/A 2008 Yes valsartan [id number] Drug Allergy Moderate HIVES 02/01/2015 Medications There is no data. Problems Date Dx Coded Attending Type Code Diagnosis Diagnosed By 10/29/2005 Ot 724.4 10/25/2006 Ot 719.41 10/25/2006 Ot V57.1 11/14/2006 Ot 724.2 11/14/2006 Ot 724.4 04/14/2007 Ot 724.2 10/31/2007 Ot 724.2 11/17/2007 Ot 724.2 01/18/2010 Ot 438.89 OTH LATE EFFECT-CEREBROVASCULAR DISEASE 01/18/2010 Ot V57.21 ENCOUNTER FOR OCCUPATIONAL THERAPY 06/30/2012 SARMAD BONE MD Ot 244.9 HYPOTHYROIDISM NOS 06/30/2012 SARMAD BONE MD Ot 305.1 TOBACCO USE DISORDER 06/30/2012 SARMAD BONE MD Ot 401.9 HYPERTENSION NOS 06/30/2012 SARMAD BONE MD Ot 414.01 CORONARY ATHEROSCLEROSIS OF [place] CORON 06/30/2012 SARMAD BONE MD Ot 562.10 DIVERTICULOSIS COLON (W/O MENT OF HEMORR 06/30/2012 SARMAD BONE MD Ot V16.0 FAMILY HX-GI MALIGNANCY 06/30/2012 SARMAD BONE MD Ot V58.63 LONG-TERM(CURRENT)USE OF ANTIPLATELET/AN 06/30/2012 SARMAD BONE MD Ot V58.66 LONG-TERM (CURRENT) USE OF ASPIRIN 06/30/2012 SARMAD BONE MD Ot V58.69 OTH MED,LT,CURRENT USE 06/30/2012 SMITHA MORAN, SARMAD Hernandez Ot V76.51 SCREEN MAL NEOP-COLON 07/03/2012 SMITHA MORAN, SARMAD Hernandez Ot 553.8 HERNIA NEC 07/03/2012 SMITHA MORAN, SARMAD Hernandez Ot V64.3 NO PROC FOR REASONS NEC 07/08/2012 SMITHA MORAN, SARMAD Hernandez Ot 553.8 HERNIA NEC 05/22/2013 BIBIANA MORAN, HIEU Desai Ot 724.4 LUMBOSACRAL NEURITIS NOS 05/22/2013 BIBIANA MORAN, HIEU Desai Ot V57.1 PHYSICAL THERAPY NEC 06/10/2014 FLORY MORAN, SASKIA Desai Ot 272.4 06/10/2014 FLORY MORAN, SASKIA Desai Ot 401.0 06/10/2014 SASKIA RUTH MD Ot 433.10 06/10/2014 SASKIA RUTH MD Ot 434.91 06/10/2014 SASKIA RUTH MD Ot 745.4 07/10/2014 SASKIA RUTH MD Ot 272.4 07/10/2014 SASKIA RUTH MD Ot 401.0 07/10/2014 SASKIA RUTH MD Ot 433.10 07/10/2014 SASKIA RUTH MD Ot 434.91 07/10/2014 SASKIA RUTH MD Ot 745.4 07/26/2014 SASKIA RUTH MD Ot 272.4 07/26/2014 SASKIA RUTH MD Ot 401.0 07/26/2014 SASKIA RUTH MD Ot 433.10 07/26/2014 SASKIA RUTH MD Ot 434.91 07/26/2014 SASKIA RUTH MD Ot 745.4 10/25/2014 ALEXIS JACKSON DO Ot 305.1 10/25/2014 ALEXIS JACKSON DO Ot 793.19 10/25/2014 ALEXIS JACKSON DO Ot V76.12 11/10/2014 ALEXIS JACKSON DO Ot 305.1 11/10/2014 ALEXIS JACKSON DO Ot 793.19 11/10/2014 ALEXIS JACKSON DO Ot V76.12 11/16/2014 ALEXIS JACKSON DO Ot 305.1 11/16/2014 ALEXIS JACKSON DO Ot 793.19 11/16/2014 ALEXIS JACKSON DO Ot V76.12 02/07/2015 ROMULO MORAN, PADMA P Ot 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 02/22/2015 ROMULO MORAN, PADMA P Ot C00.9 02/22/2015 ROMULO MORAN, PADMA P Ot Z01.810 02/22/2015 ROMULO MORAN, PADMA P Ot Z01.818 02/22/2015 ROMULO MORAN, PADMA P Ot Z11.2 03/04/2015 ALEXIS JACKSON DO Ot R91.8 03/11/2015 ROMULO MORAN, PADMA P Ot C00.9 03/11/2015 ROMULO MORAN, PADMA P Ot Z01.810 03/11/2015 ROMULO MORAN, PADMA P Ot Z01.818 03/11/2015 ROMULO MORAN, PADMA P Ot Z11.2 06/01/2015 CHAUNCEY MORAN, YANELIS Johnson Ot F17.210 NICOTINE DEPENDENCE, CIGARETTES, UNCOMPL 06/01/2015 CHAUNCEY MORAN, YANELIS Johnson Ot H95.41 POSTPROC HEMOR/HEMTOM OF EAR/MASTD FOL P 06/01/2015 CHAUNCEY MORAN, YANELIS Johnson Ot Z79.02 PENITENTIARY (CURRENT) USE OF ANTITHROMBOTI 06/01/2015 Ot 401.9 HYPERTENSION NOS 06/01/2015 Ot 436 CVA 06/01/2015 Ot V58.66 LONG-TERM ( CURRENT) USE OF ASPIRIN 06/01/2015 Ot V58.69 OTH MED,LT, CURRENT USE 06/01/2015 Ot 611.72 LUMP OR MASS IN BREAST 06/01/2015 Ot V76.12 OTH SCREEN MAMMO-MALIGN NEOPLASM OF ALMA DELIA 06/01/2015 Ot 793.80 UNSPEC ABNORMAL MAMMOGRAM 06/01/2015 Ot 793.89 OTH (ABN) FINDINGS ON RADIOLOGICAL EXAMI 06/01/2015 Ot 401.9 HYPERTENSION NOS 06/01/2015 Ot 424.0 MITRAL VALVE DISORDER 06/01/2015 Ot 434.91 CEREBRAL ART OCCLUSION NOS W CEREBRAL IN 06/01/2015 Ot 745.5 SECUNDUM ATRIAL SEPT DEF 06/01/2015 Ot 441.4 ABDOM AORTIC ANEURYSM 06/01/2015 Ot 722.93 DISC DIS NEC /NOS-LUMBAR 06/01/2015 Ot V45.4 ARTHRODESIS STATUS 06/01/2015 Ot 397.0 TRICUSPID VALVE DISEASE 06/01/2015 Ot 401.9 HYPERTENSION NOS 06/01/2015 Ot 416.8 CHR PULMON HEART DIS NEC 06/01/2015 Ot 424.0 MITRAL VALVE DISORDER 06/01/2015 Ot 429.3 CARDIOMEGALY 06/01/2015 Ot 436 CVA 06/01/2015 Ot 745.5 SECUNDUM ATRIAL SEPT DEF 06/01/2015 Ot 553.8 HERNIA NEC 06/01/2015 Ot 724.02 SPINAL STENOSIS, LUMBAR REG, W/OUT NEURO 06/01/2015 Ot 724.4 LUMBOSACRAL NEURITIS NOS 06/01/2015 SMITHA MORAN, SARMAD Hernandez Ot V72.84 EXAM PRE-OPERATIVE NOS 06/01/2015 SMITHA MORAN, SARMAD Hernandez Ot 553.8 HERNIA NEC 06/01/2015 SMITHA MORAN, SARMAD Hernandez Ot V72.63 PRE-PROCEDURAL LABORATORY EXAMINATION 06/01/2015 SMITHA MORAN, SARMAD Hernandez Ot V72.81 [id number]-[id number] CARDIOVASCULAR 06/01/2015 SMITHA MORAN, SARMAD Hernandez Ot V74.8 SCREEN-BACTERIAL DIS NEC 06/01/2015 ALEXIS JACKSON DO Ot V76.12 OTH SCREEN MAMMO-MALIGN NEOPLASM OF ALMA DELIA 06/01/2015 HIEU MCCARTY MD Ot 724.02 SPINAL STENOSIS, LUMBAR REG, W/OUT NEURO 06/01/2015 SASKIA RUTH MD Ot 272.4 HYPERLIPIDEMIA NEC/NOS 06/01/2015 SASKIA RUTH MD Ot 396.3 MITRAL/AORTIC SHAYLA INSUFF 06/01/2015 SASKIA RUTH MD Ot 397.0 TRICUSPID VALVE DISEASE 06/01/2015 SASKIA RUTH MD Ot 401.9 HYPERTENSION NOS 06/01/2015 SASKIA RUTH MD Ot 745.5 SECUNDUM ATRIAL SEPT DEF 06/01/2015 SASKIA RUTH MD Ot V12.54 PERSONAL HX OF TIA, CEREBRAL INFARCTION 06/01/2015 ALEXIS JACKSON DO Ot V76.12 OTH SCREEN MAMMO-MALIGN NEOPLASM OF ALMA DELIA 06/01/2015 SASKIA RUTH MD Ot 272.4 HYPERLIPIDEMIA NEC/NOS 06/01/2015 SASKIA RUTH MD Ot 401.0 MALIGNANT HYPERTENSION 06/01/2015 SASKIA RUTH MD Ot 433.10 CAROTID ARTERY OCCLUSION W O CEREBRAL IN 06/01/2015 SASKIA RUTH MD Ot 434.91 CEREBRAL ART OCCLUSION NOS W CEREBRAL IN 06/01/2015 SASKIA RUTH MD Ot 745.4 VENTRICULAR SEPT DEFECT 06/01/2015 ALEXIS JACKSON DO Ot 305.1 TOBACCO USE DISORDER 06/01/2015 ALEXIS JACKSON DO Ot 793.19 OTHER NONSPECIFIC ABNORMAL FINDING OF [place] 06/01/2015 ALEXIS JACKSON DO Ot V76.12 OTH SCREEN MAMMO-MALIGN NEOPLASM OF [place] DEL[place] 06/01/2015 ALEXIS JACKSON DO Ot R91.8 OTHER NONSPECIFIC ABNORMAL FINDING OF [place] 06/01/2015 ROMULO MORAN, PADMA Hoffmann Ot C00.9 MALIGNANT NEOPLASM OF LIP, UNSPECIFIED 06/01/2015 PADMA SEBASTIAN MD Ot Z01.810 ENCOUNTER FOR PREPROCEDURAL CARDIOVASCUL 06/01/2015 PADMA SEBASTIAN MD Ot Z01.818 ENCOUNTER FOR OTHER PREPROCEDURAL EXAMIN 06/01/2015 PADMA SEBASTIAN MD Ot Z11.2 ENCOUNTER FOR SCREENING FOR OTHER BACTER 09/16/2015 Ot 401.9 HYPERTENSION NOS 09/16/2015 Ot 436 CVA 09/16/2015 Ot V58.66 LONG-TERM ( CURRENT) USE OF ASPIRIN 09/16/2015 Ot V58.69 OTH MED,LT, CURRENT USE 09/16/2015 Ot 611.72 LUMP OR MASS IN BREAST 09/16/2015 Ot V76.12 OTH SCREEN MAMMO-MALIGN NEOPLASM OF [place] DEL[place] 09/16/2015 Ot 793.80 UNSPEC ABNORMAL MAMMOGRAM 09/16/2015 Ot 793.89 OTH (ABN) FINDINGS ON RADIOLOGICAL EXAMI 09/16/2015 Ot 401.9 HYPERTENSION NOS 09/16/2015 Ot 424.0 MITRAL VALVE DISORDER 09/16/2015 Ot 434.91 CEREBRAL ART OCCLUSION NOS W CEREBRAL IN 09/16/2015 Ot 745.5 SECUNDUM ATRIAL SEPT DEF 09/16/2015 Ot 441.4 ABDOM AORTIC ANEURYSM 09/16/2015 Ot 722.93 DISC DIS NEC /NOS-LUMBAR 09/16/2015 Ot V45.4 ARTHRODESIS STATUS 09/16/2015 Ot 397.0 TRICUSPID VALVE DISEASE 09/16/2015 Ot 401.9 HYPERTENSION NOS 09/16/2015 Ot 416.8 CHR PULMON HEART DIS NEC 09/16/2015 Ot 424.0 MITRAL VALVE DISORDER 09/16/2015 Ot 429.3 CARDIOMEGALY 09/16/2015 Ot 436 CVA 09/16/2015 Ot 745.5 SECUNDUM ATRIAL SEPT DEF 09/16/2015 Ot 553.8 HERNIA NEC 09/16/2015 Ot 724.02 SPINAL STENOSIS, LUMBAR REG, W/OUT NEURO 09/16/2015 Ot 724.4 LUMBOSACRAL NEURITIS NOS 09/16/2015 SMITHA MORAN, SARMAD Hernandez Ot V72.84 EXAM PRE-OPERATIVE NOS 09/16/2015 SMITHA MORAN, SARMAD Hernandez Ot 553.8 HERNIA NEC 09/16/2015 SMITHA MORAN, SARMAD Hernandez Ot V72.63 PRE-PROCEDURAL LABORATORY EXAMINATION 09/16/2015 SMITHA MORAN, SARMAD Hernandez Ot V72.81 [id number]-[id number]-GIXTOEMCI CARDIOVASCULAR 09/16/2015 SMITHA MORAN, SARMAD Hernandez Ot V74.8 SCREEN-BACTERIAL DIS NEC 09/16/2015 ALEXIS JACKSON DO, Ot V76.12 OT SCREEN MAMMO-MALIGN NEOPLASM OF ALMA DELIA 09/16/2015 BIBIANA MORAN, HIEU Desai Ot 724.02 SPINAL STENOSIS, LUMBAR REG, W/OUT NEURO 09/16/2015 SASKIA RUTH MD Ot 272.4 HYPERLIPIDEMIA NEC/NOS 09/16/2015 SASKIA RUTH MD Ot 396.3 MITRAL/AORTIC SHAYLA INSUFF 09/16/2015 SASKIA RUTH MD Ot 397.0 TRICUSPID VALVE DISEASE 09/16/2015 SASKIA RUTH MD Ot 401.9 HYPERTENSION NOS 09/16/2015 SASKIA RUTH MD Ot 745.5 SECUNDUM ATRIAL SEPT DEF 09/16/2015 SASKIA RUTH MD Ot V12.54 PERSONAL HX OF TIA, CEREBRAL INFARCTION 09/16/2015 ALEXIS JACKSON DO, Ot V76.12 OTH SCREEN MAMMO-MALIGN NEOPLASM OF [place] DEL[place] 09/16/2015 SASKIA RUTH MD Ot 272.4 HYPERLIPIDEMIA NEC/NOS 09/16/2015 SASKIA RUTH MD Ot 401.0 MALIGNANT HYPERTENSION 09/16/2015 SASKIA RUTH MD Ot 433.10 CAROTID ARTERY OCCLUSION W O CEREBRAL IN 09/16/2015 SASKIA RUTH MD Ot 434.91 CEREBRAL ART OCCLUSION NOS W CEREBRAL IN 09/16/2015 SASKIA RUTH MD Ot 745.4 VENTRICULAR SEPT DEFECT 09/16/2015 ALEXIS JACKSON DO Ot 305.1 TOBACCO USE DISORDER 09/16/2015 ALEXIS JACKSON DO Ot 793.19 OTHER NONSPECIFIC ABNORMAL FINDING OF [place]OR[place] 09/16/2015 ALEXIS JACKSON DO Ot V76.12 OT SCREEN MAMMO-MALIGN NEOPLASM OF [place] DELIA 09/16/2015 ALEXIS JACKSON DO Ot R91.8 OTHER NONSPECIFIC ABNORMAL FINDING OF [place]OR[place] 09/16/2015 ROMULO MORAN, PADMA Hoffmann Ot C00.9 MALIGNANT NEOPLASM OF LIP, UNSPECIFIED 09/16/2015 ROMULO MORAN, PADMA Hoffmann Ot Z01.810 ENCOUNTER FOR PREPROCEDURAL CARDIOVASCUL 09/16/2015 PADMA SEBASTIAN MD Ot Z01.818 ENCOUNTER FOR OTHER PREPROCEDURAL EXAMIN 09/16/2015 PADMA SEBASTIAN MD Ot Z11.2 ENCOUNTER FOR SCREENING FOR OTHER BACTER 09/16/2015 ALEXIS JACKSON DO Ot Q21.1 ATRIAL SEPTAL DEFECT 09/18/2015 ALEXIS JACKSON DO Ot Q21.1 ATRIAL SEPTAL DEFECT 09/19/2015 ALEXIS JACKSON DO Ot Q21.1 ATRIAL SEPTAL DEFECT 10/03/2015 ALEXIS JACKSON DO Ot Q21.1 ATRIAL SEPTAL DEFECT 10/07/2015 ALEIXS JACKSON DO Ot Q21.1 ATRIAL SEPTAL DEFECT 11/25/2015 ALEXIS JACKSON DO Ot R05 COUGH 11/25/2015 ALEXIS JACKSON DO Ot R91.1 SOLITARY PULMONARY NODULE 11/25/2015 ALEXIS JACKSON DO Ot Z12.31 ENCNTR SCREEN MAMMOGRAM FOR MALIGNANT NE 11/25/2015 Ot 611.72 LUMP OR MASS IN BREAST 11/25/2015 Ot V76.12 OTH SCREEN MAMMO-MALIGN NEOPLASM OF AL[place] DELIA 11/25/2015 Ot 793.80 UNSPEC ABNORMAL MAMMOGRAM 11/25/2015 Ot 793.89 OTH (ABN) FINDINGS ON RADIOLOGICAL EXAMI 11/25/2015 Ot 401.9 HYPERTENSION NOS 11/25/2015 Ot 424.0 MITRAL VALVE DISORDER 11/25/2015 Ot 434.91 CEREBRAL ART OCCLUSION NOS W CEREBRAL IN 11/25/2015 Ot 745.5 SECUNDUM ATRIAL SEPT DEF 11/25/2015 Ot 441.4 ABDOM AORTIC ANEURYSM 11/25/2015 Ot 722.93 DISC DIS NEC /NOS-LUMBAR 11/25/2015 Ot V45.4 ARTHRODESIS STATUS 11/25/2015 Ot 397.0 TRICUSPID VALVE DISEASE 11/25/2015 Ot 401.9 HYPERTENSION NOS 11/25/2015 Ot 416.8 CHR PULMON HEART DIS NEC 11/25/2015 Ot 424.0 MITRAL VALVE DISORDER 11/25/2015 Ot 429.3 CARDIOMEGALY 11/25/2015 Ot 436 CVA 11/25/2015 Ot 745.5 SECUNDUM ATRIAL SEPT DEF 11/25/2015 Ot 553.8 HERNIA NEC 11/25/2015 Ot 724.02 SPINAL STENOSIS, LUMBAR REG, W/OUT NEURO 11/25/2015 Ot 724.4 LUMBOSACRAL NEURITIS NOS 11/25/2015 SMITHA MORAN, SARMAD Hernandez Ot V72.84 EXAM PRE-OPERATIVE NOS 11/25/2015 SMITHA MORAN, SARMAD Hernandez Ot 553.8 HERNIA NEC 11/25/2015 SMITHA MORAN, SARMAD Hernandez Ot V72.63 PRE-PROCEDURAL LABORATORY EXAMINATION 11/25/2015 SMITHA MORAN, SARMAD Hernandez Ot V72.81 [id number]-[id number] CARDIOVASCULAR 11/25/2015 SMITHA MORAN, SARMAD Hernandez Ot V74.8 SCREEN-BACTERIAL DIS NEC 11/25/2015 ALEXIS JACKSON DO Ot V76.12 OTH SCREEN MAMMO-MALIGN NEOPLASM OF ALMA DELIA 11/25/2015 HIEU MCCARTY MD Ot 724.02 SPINAL STENOSIS, LUMBAR REG, W/OUT NEURO 11/25/2015 SASKIA RUTH MD Ot 272.4 HYPERLIPIDEMIA NEC/NOS 11/25/2015 SASKIA RUTH MD Ot 396.3 MITRAL/AORTIC SHAYLA INSUFF 11/25/2015 SASKIA RUTH MD Ot 397.0 TRICUSPID VALVE DISEASE 11/25/2015 SASKIA RUTH MD Ot 401.9 HYPERTENSION NOS 11/25/2015 SASKIA RUTH MD Ot 745.5 SECUNDUM ATRIAL SEPT DEF 11/25/2015 SASKIA RTUH MD Ot V12.54 PERSONAL HX OF TIA, CEREBRAL INFARCTION 11/25/2015 ALEXIS JACKSON DO Ot V76.12 OTH SCREEN MAMMO-MALIGN NEOPLASM OF ALMA DELIA 11/25/2015 SASKIA RUTH MD Ot 272.4 HYPERLIPIDEMIA NEC/NOS 11/25/2015 SASKIA RUTH MD Ot 401.0 MALIGNANT HYPERTENSION 11/25/2015 SASKIA RUTH MD Ot 433.10 CAROTID ARTERY OCCLUSION W O CEREBRAL IN 11/25/2015 SASKIA RUTH MD Ot 434.91 CEREBRAL ART OCCLUSION NOS W CEREBRAL IN 11/25/2015 SASKIA RUTH MD Ot 745.4 VENTRICULAR SEPT DEFECT 11/25/2015 ALEXIS JACKSON DO Ot 305.1 TOBACCO USE DISORDER 11/25/2015 ALEXIS JACKSON DO Ot 793.19 OTHER NONSPECIFIC ABNORMAL FINDING OF BOR[place] 11/25/2015 ALEXIS JACKSON DO Ot V76.12 OT SCREEN MAMMO-MALIGN NEOPLASM OF ALMA DELIA 11/25/2015 ALEXIS JACKSON DO Ot R91.8 OTHER NONSPECIFIC ABNORMAL FINDING OF [place]OR[place] 11/25/2015 PADMA SEBASTIAN MD Ot C00.9 MALIGNANT NEOPLASM OF LIP, UNSPECIFIED 11/25/2015 PADMA SEBASTIAN MD Ot Z01.810 ENCOUNTER FOR PREPROCEDURAL CARDIOVASCUL 11/25/2015 PADMA SEBASTIAN MD Ot Z01.818 ENCOUNTER FOR OTHER PREPROCEDURAL EXAMIN 11/25/2015 PADMA SEBASTIAN MD Ot Z11.2 ENCOUNTER FOR SCREENING FOR OTHER BACTER 11/25/2015 ALEXIS JACKSON DO Ot Q21.1 ATRIAL SEPTAL DEFECT 11/25/2015 ALEXIS JACKSON DO Ot R05 COUGH 11/25/2015 ALEXIS JACKSON DO Ot R91.1 SOLITARY PULMONARY NODULE 11/25/2015 ALEXIS JACKSON DO Ot Z12.31 ENCNTR SCREEN MAMMOGRAM FOR MALIGNANT NE 12/01/2015 ALEXIS JACKSON DO Ot R91.1 SOLITARY PULMONARY NODULE 12/05/2015 ALEXIS JACKSON DO Ot R05 COUGH 12/05/2015 ALEXIS JACKSON DO Ot R91.1 SOLITARY PULMONARY NODULE 12/05/2015 ALEXIS JACKSON DO Ot Z12.31 ENCNTR SCREEN MAMMOGRAM FOR MALIGNANT NE 12/22/2015 ALEXIS JACKSON DO Ot R91.1 SOLITARY PULMONARY NODULE 04/04/2016 ROBERT MORAN, RODRI Fuchs Ot C34.11 MALIGNANT NEOPLASM OF UPPER LOBE, RIGHT 04/04/2016 ROBERT MORAN, RODRI Fuchs Ot D64.9 ANEMIA, UNSPECIFIED 04/04/2016 RODRI JONES MD Ot E03.9 HYPOTHYROIDISM, UNSPECIFIED 04/04/2016 RODRI JONES MD Ot E78.5 HYPERLIPIDEMIA, UNSPECIFIED 04/04/2016 RODRI JONES MD Ot F17.210 NICOTINE DEPENDENCE, CIGARETTES, UNCOMPL 04/04/2016 RODRI JONES MD Ot I10 ESSENTIAL (PRIMARY) HYPERTENSION 04/04/2016 RODRI JONES MD Ot K21.9 GASTRO-ESOPHAGEAL REFLUX DISEASE WITHOUT 04/04/2016 RODRI JONES MD Ot Z79.899 OTHER OXYGEN THERAPY TECHNICIAN (CURRENT) DRUG THERAPY 06/11/2016 RODRI JONES MD, Ot C34.11 MALIGNANT NEOPLASM OF UPPER LOBE, RIGHT 06/11/2016 RODRI JONES MD, Ot D64.9 ANEMIA, UNSPECIFIED 06/11/2016 RODRI JONES MD Ot E03.9 HYPOTHYROIDISM, UNSPECIFIED 06/11/2016 RODRI JONES MD, Ot E78.5 HYPERLIPIDEMIA, UNSPECIFIED 06/11/2016 RODRI JONES MD Ot F17.210 NICOTINE DEPENDENCE, CIGARETTES, UNCOMPL 06/11/2016 RODRI JONES MD Ot I10 ESSENTIAL (PRIMARY) HYPERTENSION 06/11/2016 RODRI JONES MD, Ot K21.9 GASTRO-ESOPHAGEAL REFLUX DISEASE WITHOUT 06/11/2016 RODRI JONES MD Ot Z79.899 OTHER PENITENTIARY (CURRENT) DRUG THERAPY 06/13/2016 RODRI JONES MD, Ot C34.11 MALIGNANT NEOPLASM OF UPPER LOBE, RIGHT 06/13/2016 RODRI JONES MD, Ot D64.9 ANEMIA, UNSPECIFIED 06/13/2016 RODRI JONES MD Ot E03.9 HYPOTHYROIDISM, UNSPECIFIED 06/13/2016 RODRI JONES MD Ot E78.5 HYPERLIPIDEMIA, UNSPECIFIED 06/13/2016 RODRI JONES MD Ot F17.210 NICOTINE DEPENDENCE, CIGARETTES, UNCOMPL 06/13/2016 RODRI JONES MD Ot I10 ESSENTIAL (PRIMARY) HYPERTENSION 06/13/2016 RODRI JONES MD Ot K21.9 GASTRO-ESOPHAGEAL REFLUX DISEASE WITHOUT 06/13/2016 RODRI JONES MD Ot Z79.899 OTHER OXYGEN THERAPY TECHNICIAN (CURRENT) DRUG THERAPY 07/23/2016 RODRI JONES MD, Ot C34.11 MALIGNANT NEOPLASM OF UPPER LOBE, RIGHT 08/03/2016 RODRI JONES MD Ot C34.11 MALIGNANT NEOPLASM OF UPPER LOBE, RIGHT 08/03/2016 RODRI JONES MD Ot D64.9 ANEMIA, UNSPECIFIED 08/03/2016 RODRI JONES MD Ot E03.9 HYPOTHYROIDISM, UNSPECIFIED 08/03/2016 RODRI JONES MD Ot E78.5 HYPERLIPIDEMIA, UNSPECIFIED 08/03/2016 RODRI JONES MD Ot F17.210 NICOTINE DEPENDENCE, CIGARETTES, UNCOMPL 08/03/2016 RODRI JONES MD Ot I10 ESSENTIAL (PRIMARY) HYPERTENSION 08/03/2016 RODRI JONES MD, Ot K21.9 GASTRO-ESOPHAGEAL REFLUX DISEASE WITHOUT 08/03/2016 RODRI JONES MD Ot Z79.899 OTHER PENITENTIARY (CURRENT) DRUG THERAPY 09/10/2016 RODRI JONES MD, Ot C34.11 MALIGNANT NEOPLASM OF UPPER LOBE, RIGHT 09/10/2016 RODRI JONES MD Ot D64.9 ANEMIA, UNSPECIFIED 09/10/2016 RODRI JONES MD Ot E03.9 HYPOTHYROIDISM, UNSPECIFIED 09/10/2016 RODRI JONES MD Ot E78.5 HYPERLIPIDEMIA, UNSPECIFIED 09/10/2016 RODRI JONES MD Ot F17.210 NICOTINE DEPENDENCE, CIGARETTES, UNCOMPL 09/10/2016 RODRI JONES MD Ot I10 ESSENTIAL (PRIMARY) HYPERTENSION 09/10/2016 RODRI JONES MD Ot K21.9 GASTRO-ESOPHAGEAL REFLUX DISEASE WITHOUT 09/10/2016 RODRI JONES MD Ot Z79.899 OTHER PENITENTIARY (CURRENT) DRUG THERAPY 09/11/2016 RODRI JONES MD Ot C34.11 MALIGNANT NEOPLASM OF UPPER LOBE, RIGHT 09/11/2016 RODRI JONES MD Ot D64.9 ANEMIA, UNSPECIFIED 09/11/2016 RODRI JONES MD Ot E03.9 HYPOTHYROIDISM, UNSPECIFIED 09/11/2016 RODRI JONES MD Ot E78.5 HYPERLIPIDEMIA, UNSPECIFIED 09/11/2016 RODRI JONES MD Ot F17.210 NICOTINE DEPENDENCE, CIGARETTES, UNCOMPL 09/11/2016 RODRI JONES MD Ot I10 ESSENTIAL (PRIMARY) HYPERTENSION 09/11/2016 RODRI JONES MD Ot K21.9 GASTRO-ESOPHAGEAL REFLUX DISEASE WITHOUT 09/11/2016 RODRI JONES MD Ot Z79.899 OTHER PENITENTIARY (CURRENT) DRUG THERAPY 11/09/2016 YVON AGOSTO MD, Ot C34.11 MALIGNANT NEOPLASM OF UPPER LOBE, RIGHT 11/09/2016 YVON AGOSTO MD Ot D64.9 ANEMIA, UNSPECIFIED 11/09/2016 YVON AGOSTO MD Ot E03.9 HYPOTHYROIDISM, UNSPECIFIED 11/09/2016 YVON AGOSTO MD Ot E78.5 HYPERLIPIDEMIA, UNSPECIFIED 11/09/2016 YVON AGOSTO MD Ot F17.210 NICOTINE DEPENDENCE, CIGARETTES, UNCOMPL 11/09/2016 YVON AGOSTO MD Ot I10 ESSENTIAL (PRIMARY) HYPERTENSION 11/09/2016 YVON AGOSTO MD Ot K21.9 GASTRO-ESOPHAGEAL REFLUX DISEASE WITHOUT 11/09/2016 YVON AGOSTO MD, Ot Z79.899 OTHER OXYGEN THERAPY TECHNICIAN (CURRENT) DRUG THERAPY 11/10/2016 YVON AGOSTO MD Ot C34.11 MALIGNANT NEOPLASM OF UPPER LOBE, RIGHT 11/10/2016 YVON AGOSTO MD Ot D64.9 ANEMIA, UNSPECIFIED 11/10/2016 YVON AGOSTO MD Ot E03.9 HYPOTHYROIDISM, UNSPECIFIED 11/10/2016 YVON AGOSTO MD Ot E78.5 HYPERLIPIDEMIA, UNSPECIFIED 11/10/2016 YVON AGOSTO MD Ot F17.210 NICOTINE DEPENDENCE, CIGARETTES, UNCOMPL 11/10/2016 YVON AGOSTO MD Ot I10 ESSENTIAL (PRIMARY) HYPERTENSION 11/10/2016 YVON AGOSTO MD Ot K21.9 GASTRO-ESOPHAGEAL REFLUX DISEASE WITHOUT 11/10/2016 YVON AGOSTO MD, Ot Z79.899 OTHER PENITENTIARY (CURRENT) DRUG THERAPY 12/10/2016 ALEXIS JACKSON DO Ot Z12.31 ENCNTR SCREEN MAMMOGRAM FOR MALIGNANT NE 12/10/2016 Ot 441.4 ABDOM AORTIC ANEURYSM 12/10/2016 Ot 722.93 DISC DIS NEC /NOS-LUMBAR 12/10/2016 Ot V45.4 ARTHRODESIS STATUS 12/10/2016 Ot 397.0 TRICUSPID VALVE DISEASE 12/10/2016 Ot 401.9 HYPERTENSION NOS 12/10/2016 Ot 416.8 CHR PULMON HEART DIS NEC 12/10/2016 Ot 424.0 MITRAL VALVE DISORDER 12/10/2016 Ot 429.3 CARDIOMEGALY 12/10/2016 Ot 436 CVA 12/10/2016 Ot 745.5 SECUNDUM ATRIAL SEPT DEF 12/10/2016 Ot 553.8 HERNIA NEC 12/10/2016 Ot 724.02 SPINAL STENOSIS, LUMBAR REG, W/OUT NEURO 12/10/2016 Ot 724.4 LUMBOSACRAL NEURITIS NOS 12/10/2016 SMITHA MORAN, SARMAD Hernandez Ot V72.84 EXAM PRE-OPERATIVE NOS 12/10/2016 SMITHA MORAN, SARMAD Hernandez Ot 553.8 HERNIA NEC 12/10/2016 SARMAD BONE MD Ot V72.63 PRE-PROCEDURAL LABORATORY EXAMINATION 12/10/2016 SARMAD BONE MD Ot V72.81 [facility]-FLWFZ[facility] CARDIOVASCULAR 12/10/2016 SARMAD BONE MD Ot V74.8 SCREEN-BACTERIAL DIS NEC 12/10/2016 ALEXIS JACKSON DO Ot V76.12 OTH SCREEN MAMMO-MALIGN NEOPLASM OF ALMA DELIA 12/10/2016 BIBIANA MORAN, HIEU Desai Ot 724.02 SPINAL STENOSIS, LUMBAR REG, W/OUT NEURO 12/10/2016 SASKIA RUTH MD Ot 272.4 HYPERLIPIDEMIA NEC/NOS 12/10/2016 SASKIA RUTH MD Ot 396.3 MITRAL/AORTIC SHAYLA INSUFF 12/10/2016 SASKIA RUTH MD Ot 397.0 TRICUSPID VALVE DISEASE 12/10/2016 SASKIA RUTH MD Ot 401.9 HYPERTENSION NOS 12/10/2016 SASKIA RUTH MD Ot 745.5 SECUNDUM ATRIAL SEPT DEF 12/10/2016 SASKIA RUTH MD Ot V12.54 PERSONAL HX OF TIA, CEREBRAL INFARCTION 12/10/2016 ALEXIS JACKSON DO Ot V76.12 OTH SCREEN MAMMO-MALIGN NEOPLASM OF ALMA DELIA 12/10/2016 SASKIA RUTH MD Ot 272.4 HYPERLIPIDEMIA NEC/NOS 12/10/2016 SASKIA RUTH MD Ot 401.0 MALIGNANT HYPERTENSION 12/10/2016 SASKIA RUTH MD Ot 433.10 CAROTID ARTERY OCCLUSION W O CEREBRAL IN 12/10/2016 SASKIA RUTH MD Ot 434.91 CEREBRAL ART OCCLUSION NOS W CEREBRAL IN 12/10/2016 SASKIA RUTH MD Ot 745.4 VENTRICULAR SEPT DEFECT 12/10/2016 ALEXIS JACKSON DO Ot 305.1 TOBACCO USE DISORDER 12/10/2016 ALEXIS JACKSON DO Ot 793.19 OTHER NONSPECIFIC ABNORMAL FINDING OF BORA 12/10/2016 ALEXIS JACKSON DO Ot V76.12 OTH SCREEN MAMMO-MALIGN NEOPLASM OF ALMA DELIA 12/10/2016 ALEXIS JACKSON DO, Ot R91.8 OTHER NONSPECIFIC ABNORMAL FINDING OF BORA 12/10/2016 PADMA SEBASTIAN MD Ot C00.9 MALIGNANT NEOPLASM OF LIP, UNSPECIFIED 12/10/2016 PADMA SEBASTIAN MD Ot Z01.810 ENCOUNTER FOR PREPROCEDURAL CARDIOVASCUL 12/10/2016 PADMA SEBASTIAN MD, Ot Z01.818 ENCOUNTER FOR OTHER PREPROCEDURAL EXAMIN 12/10/2016 PADMA SEBASTIAN MD Ot Z11.2 ENCOUNTER FOR SCREENING FOR OTHER BACTER 12/10/2016 ALEXIS JACKSON DO Ot Q21.1 ATRIAL SEPTAL DEFECT 12/10/2016 ALEXIS JACKSON DO Ot R05 COUGH 12/10/2016 ALEXIS JACKSON DO, Ot R91.1 SOLITARY PULMONARY NODULE 12/10/2016 ALEXIS JACKSON DO, Ot Z12.31 ENCNTR SCREEN MAMMOGRAM FOR MALIGNANT NE 12/10/2016 ALEXIS JACKSON DO, Ot R91.1 SOLITARY PULMONARY NODULE 12/10/2016 ROBERT MORAN, RODRI Fuchs Ot C34.11 MALIGNANT NEOPLASM OF UPPER LOBE, RIGHT 12/10/2016 YVON AGOSTO MD, Ot C34.11 MALIGNANT NEOPLASM OF UPPER LOBE, RIGHT 12/10/2016 YVON AGOSTO MD Ot D64.9 ANEMIA, UNSPECIFIED 12/10/2016 YVON AGOSTO MD Ot E03.9 HYPOTHYROIDISM, UNSPECIFIED 12/10/2016 YVON AGOSTO MD Ot E78.5 HYPERLIPIDEMIA, UNSPECIFIED 12/10/2016 YVON AGOSTO MD Ot F17.210 NICOTINE DEPENDENCE, CIGARETTES, UNCOMPL 12/10/2016 YVON AGOSTO MD Ot I10 ESSENTIAL (PRIMARY) HYPERTENSION 12/10/2016 YVON AGOSTO MD, Ot K21.9 GASTRO-ESOPHAGEAL REFLUX DISEASE WITHOUT 12/10/2016 YVON AGOSTO MD, Ot Z79.899 OTHER OXYGEN THERAPY TECHNICIAN (CURRENT) DRUG THERAPY 12/10/2016 ALEXIS JACKSON DO, Ot Z12.31 ENCNTR SCREEN MAMMOGRAM FOR MALIGNANT NE 12/17/2016 ALEXIS JACKSON DO Ot Z12.31 ENCNTR SCREEN MAMMOGRAM FOR MALIGNANT NE 01/02/2017 PABLO DIETZ MD Ot D56.9 THALASSEMIA, UNSPECIFIED 01/02/2017 PABLO DIETZ MD Ot E03.9 HYPOTHYROIDISM, UNSPECIFIED 01/02/2017 PABLO DIETZ MD Ot E11.9 TYPE 2 DIABETES MELLITUS WITHOUT COMPLIC 01/02/2017 PABLO DIETZ MD Ot I10 ESSENTIAL (PRIMARY) HYPERTENSION 01/02/2017 PABLO DIETZ MD Ot I34.1 NONRHEUMATIC MITRAL (VALVE) PROLAPSE 01/02/2017 PABLO DIETZ MD, Ot K21.9 GASTRO-ESOPHAGEAL REFLUX DISEASE WITHOUT 01/02/2017 PABLO DIETZ MD Ot M19.91 PRIMARY OSTEOARTHRITIS, UNSPECIFIED SITE 01/02/2017 PABLO DIETZ MD, Ot M54.9 DORSALGIA, UNSPECIFIED 01/02/2017 PABLO DIETZ MD Ot M97.02XA PERIPROSTH FRACTURE AROUND INTERNAL PROS 01/02/2017 PABLO DIETZ MD Ot Q21.1 ATRIAL SEPTAL DEFECT 01/02/2017 PABLO DIETZ MD Ot R11.0 NAUSEA 01/02/2017 PABLO DIETZ MD Ot S42.252A DISP FX OF GREATER TUBEROSITY OF LEFT HU 01/02/2017 PABLO DIETZ MD Ot W01.0XXA FALL SAME LEV FROM SLIP/TRIP W/O STRIKE 01/02/2017 PABLO DIETZ MD Ot Y92.[address] IN [facility] NON-INSTITUTIONAL RESI 01/02/2017 PABLO DIETZ MD Ot Z85.118 PERSONAL HISTORY OF MALIGNANT NEOPLASM O 01/02/2017 PABLO DIETZ MD Ot Z85.828 PERSONAL HISTORY OF OTHER MALIGNANT NEOP 01/02/2017 PABLO DIETZ MD Ot Z86.73 PRSNL HX OF TIA (TIA), AND CEREB INFRC W 01/02/2017 PABLO DIETZ MD, Ot Z87.891 PERSONAL HISTORY OF NICOTINE DEPENDENCE 01/02/2017 PABLO DIETZ MD Ot Z89.019 ACQUIRED ABSENCE OF UNSPECIFIED THUMB 01/02/2017 PABLO DIETZ MD Ot Z90.2 ACQUIRED ABSENCE OF LUNG [PART OF] 01/02/2017 PABLO DIETZ MD Ot Z96.643 PRESENCE OF ARTIFICIAL HIP JOINT, BILATE 01/02/2017 PABLO DIETZ MD Ot D56.9 THALASSEMIA, UNSPECIFIED 01/02/2017 PABLO DIETZ MD Ot E03.9 HYPOTHYROIDISM, UNSPECIFIED 01/02/2017 PABLO DIETZ MD Ot E11.9 TYPE 2 DIABETES MELLITUS WITHOUT COMPLIC 01/02/2017 PBALO DIETZ MD Ot I10 ESSENTIAL (PRIMARY) HYPERTENSION 01/02/2017 PABLO DIETZ MD Ot I34.1 NONRHEUMATIC MITRAL (VALVE) PROLAPSE 01/02/2017 PABLO DIETZ MD Ot K21.9 GASTRO-ESOPHAGEAL REFLUX DISEASE WITHOUT 01/02/2017 PABLO DIETZ MD Ot M19.91 PRIMARY OSTEOARTHRITIS, UNSPECIFIED SITE 01/02/2017 PABLO DIETZ MD Ot M54.9 DORSALGIA, UNSPECIFIED 01/02/2017 PABLO DIETZ MD Ot M97.02XA PERIPROSTH FRACTURE AROUND INTERNAL PROS 01/02/2017 PABLO DIETZ MD Ot Q21.1 ATRIAL SEPTAL DEFECT 01/02/2017 PABLO DIETZ MD Ot R11.0 NAUSEA 01/02/2017 PABLO DIETZ MD Ot S42.252A DISP FX OF GREATER TUBEROSITY OF LEFT HU 01/02/2017 PABLO DIETZ MD Ot W01.0XXA FALL SAME LEV FROM SLIP/TRIP W/O STRIKE 01/02/2017 PABLO DIETZ MD Ot Y92.[address] IN [facility] NON-INSTITUTIONAL RESI 01/02/2017 PABLO DIETZ MD Ot Z85.118 PERSONAL HISTORY OF MALIGNANT NEOPLASM O 01/02/2017 PABLO DIETZ MD Ot Z85.828 PERSONAL HISTORY OF OTHER MALIGNANT NEOP 01/02/2017 PABLO DIETZ MD Ot Z86.73 PRSNL HX OF TIA (TIA), AND CEREB INFRC W 01/02/2017 PABLO DIETZ MD Ot Z87.891 PERSONAL HISTORY OF NICOTINE DEPENDENCE 01/02/2017 PABLO DIETZ MD Ot Z89.019 ACQUIRED ABSENCE OF UNSPECIFIED THUMB 01/02/2017 PABLO DIETZ MD Ot Z90.2 ACQUIRED ABSENCE OF LUNG [PART OF] 01/02/2017 PABLO DIETZ MD Ot Z96.643 PRESENCE OF ARTIFICIAL HIP JOINT, BILATE 01/02/2017 PABLO DIETZ MD Ot D56.9 THALASSEMIA, UNSPECIFIED 01/02/2017 PABOL DIETZ MD Ot E03.9 HYPOTHYROIDISM, UNSPECIFIED 01/02/2017 PABLO DIETZ MD Ot E11.9 TYPE 2 DIABETES MELLITUS WITHOUT COMPLIC 01/02/2017 PABLO DIETZ MD Ot I10 ESSENTIAL (PRIMARY) HYPERTENSION 01/02/2017 PABLO DIETZ MD Ot I34.1 NONRHEUMATIC MITRAL (VALVE) PROLAPSE 01/02/2017 PABLO DIETZ MD Ot K21.9 GASTRO-ESOPHAGEAL REFLUX DISEASE WITHOUT 01/02/2017 PABLO DIETZ MD Ot M19.91 PRIMARY OSTEOARTHRITIS, UNSPECIFIED SITE 01/02/2017 PABLO DIETZ MD Ot M54.9 DORSALGIA, UNSPECIFIED 01/02/2017 PABLO DIETZ MD Ot M97.02XA PERIPROSTH FRACTURE AROUND INTERNAL PROS 01/02/2017 PABLO DIETZ MD Ot Q21.1 ATRIAL SEPTAL DEFECT 01/02/2017 PABLO DIETZ MD Ot R11.0 NAUSEA 01/02/2017 PABLO DIETZ MD Ot S42.252A DISP FX OF GREATER TUBEROSITY OF LEFT HU 01/02/2017 PABLO DIETZ MD Ot W01.0XXA FALL SAME LEV FROM SLIP/TRIP W/O STRIKE 01/02/2017 PABLO DIETZ MD Ot Y92.[address] IN [facility] NON-INSTITUTIONAL RESI 01/02/2017 PABLO DIETZ MD Ot Z85.118 PERSONAL HISTORY OF MALIGNANT NEOPLASM O 01/02/2017 PABLO DIETZ MD Ot Z85.828 PERSONAL HISTORY OF OTHER MALIGNANT NEOP 01/02/2017 PABLO DIETZ MD Ot Z86.73 PRSNL HX OF TIA (TIA), AND CEREB INFRC W 01/02/2017 PABLO DIETZ MD Ot Z87.891 PERSONAL HISTORY OF NICOTINE DEPENDENCE 01/02/2017 PABLO DIETZ MD Ot Z89.019 ACQUIRED ABSENCE OF UNSPECIFIED THUMB 01/02/2017 PABLO DIETZ MD Ot Z90.2 ACQUIRED ABSENCE OF LUNG [PART OF] 01/02/2017 J LUIS MORAN PABLO Fuchs Ot Z96.643 PRESENCE OF ARTIFICIAL HIP JOINT, BILATE 01/02/2017 Ot 441.4 ABDOM AORTIC ANEURYSM 01/02/2017 Ot 722.93 DISC DIS NEC /NOS-LUMBAR 01/02/2017 Ot V45.4 ARTHRODESIS STATUS 01/02/2017 Ot 397.0 TRICUSPID VALVE DISEASE 01/02/2017 Ot 401.9 HYPERTENSION NOS 01/02/2017 Ot 416.8 CHR PULMON HEART DIS NEC 01/02/2017 Ot 424.0 MITRAL VALVE DISORDER 01/02/2017 Ot 429.3 CARDIOMEGALY 01/02/2017 Ot 436 CVA 01/02/2017 Ot 745.5 SECUNDUM ATRIAL SEPT DEF 01/02/2017 Ot 553.8 HERNIA NEC 01/02/2017 Ot 724.02 SPINAL STENOSIS, LUMBAR REG, W/OUT NEURO 01/02/2017 Ot 724.4 LUMBOSACRAL NEURITIS NOS 01/02/2017 SMITHA MORAN, SARMAD Hernandez Ot V72.84 EXAM PRE-OPERATIVE NOS 01/02/2017 SMITHA MORAN, SARMAD Hernandez Ot 553.8 HERNIA NEC 01/02/2017 SMITHA MORAN, SARMAD Hernandez Ot V72.63 PRE-PROCEDURAL LABORATORY EXAMINATION 01/02/2017 SMITHA MORAN, SARMAD Hernandez Ot V72.81 [id number] CARDIOVASCULAR 01/02/2017 SMITHA MORAN, SARMAD Hernandez Ot V74.8 SCREEN-BACTERIAL DIS NEC 01/02/2017 ALEXIS JACKSON DO Ot V76.12 OTH SCREEN MAMMO-MALIGN NEOPLASM OF ALMA DELIA 01/02/2017 HIEU MCCARTY MD Ot 724.02 SPINAL STENOSIS, LUMBAR REG, W/OUT NEURO 01/02/2017 SASKIA RUTH MD Ot 272.4 HYPERLIPIDEMIA NEC/NOS 01/02/2017 SASKIA RUTH MD Ot 396.3 MITRAL/AORTIC SHAYLA INSUFF 01/02/2017 SASKIA RUTH MD Ot 397.0 TRICUSPID VALVE DISEASE 01/02/2017 SASKIA RUTH MD Ot 401.9 HYPERTENSION NOS 01/02/2017 SASKIA RUTH MD Ot 745.5 SECUNDUM ATRIAL SEPT DEF 01/02/2017 SASKIA RUTH MD Ot V12.54 PERSONAL HX OF TIA, CEREBRAL INFARCTION 01/02/2017 ALEXIS JACKSON DO, Ot V76.12 OTH SCREEN MAMMO-MALIGN NEOPLASM OF ALMA DELIA 01/02/2017 SASKIA RUTH MD Ot 272.4 HYPERLIPIDEMIA NEC/NOS 01/02/2017 SASKIA RUTH MD Ot 401.0 MALIGNANT HYPERTENSION 01/02/2017 SASKIA RUTH MD Ot 433.10 CAROTID ARTERY OCCLUSION W O CEREBRAL IN 01/02/2017 SASKIA RUTH MD Ot 434.91 CEREBRAL ART OCCLUSION NOS W CEREBRAL IN 01/02/2017 SASKIA RUTH MD Ot 745.4 VENTRICULAR SEPT DEFECT 01/02/2017 ALEXIS JACKSON DO Ot 305.1 TOBACCO USE DISORDER 01/02/2017 ALEXIS JACKSON DO Ot 793.19 OTHER NONSPECIFIC ABNORMAL FINDING OF BORA 01/02/2017 ALEXIS JACKSON DO, Ot V76.12 OTH SCREEN MAMMO-MALIGN NEOPLASM OF ALMA DELIA 01/02/2017 ALEXIS JACKSON DO, Ot R91.8 OTHER NONSPECIFIC ABNORMAL FINDING OF BORA 01/02/2017 PADMA SEBASTIAN MD Ot C00.9 MALIGNANT NEOPLASM OF LIP, UNSPECIFIED 01/02/2017 PADMA SEBASTIAN MD, Ot Z01.810 ENCOUNTER FOR PREPROCEDURAL CARDIOVASCUL 01/02/2017 PADMA SEBASTIAN MD, Ot Z01.818 ENCOUNTER FOR OTHER PREPROCEDURAL EXAMIN 01/02/2017 PADMA SEBASTIAN MD Ot Z11.2 ENCOUNTER FOR SCREENING FOR OTHER BACTER 01/02/2017 ALEXIS JACKSON DO Ot Q21.1 ATRIAL SEPTAL DEFECT 01/02/2017 ALEXIS JACKSON DO Ot R05 COUGH 01/02/2017 ALEXIS JACKSON DO, Ot R91.1 SOLITARY PULMONARY NODULE 01/02/2017 ALEXIS JACKSON DO, Ot Z12.31 ENCNTR SCREEN MAMMOGRAM FOR MALIGNANT NE 01/02/2017 ALEXIS JACKSON DO, Ot R91.1 SOLITARY PULMONARY NODULE 01/02/2017 ROBERT MORAN, RODRI Fuchs Ot C34.11 MALIGNANT NEOPLASM OF UPPER LOBE, RIGHT 01/02/2017 YVON AGOSTO MD, Ot C34.11 MALIGNANT NEOPLASM OF UPPER LOBE, RIGHT 01/02/2017 YVON AGOSTO MD, Ot D64.9 ANEMIA, UNSPECIFIED 01/02/2017 YVON AGOSTO MD, Ot E03.9 HYPOTHYROIDISM, UNSPECIFIED 01/02/2017 YVON AGOSTO MD, Ot E78.5 HYPERLIPIDEMIA, UNSPECIFIED 01/02/2017 YVON AGOSTO MD, Ot F17.210 NICOTINE DEPENDENCE, CIGARETTES, UNCOMPL 01/02/2017 YVON AGOSTO MD Ot I10 ESSENTIAL (PRIMARY) HYPERTENSION 01/02/2017 YVON AGOSTO MD, Ot K21.9 GASTRO-ESOPHAGEAL REFLUX DISEASE WITHOUT 01/02/2017 YVON AGOSTO MD, Ot Z79.899 OTHER OXYGEN THERAPY TECHNICIAN (CURRENT) DRUG THERAPY 01/02/2017 PABLO DIETZ MD, Ot D56.9 THALASSEMIA, UNSPECIFIED 01/02/2017 PABLO DIETZ MD, Ot E03.9 HYPOTHYROIDISM, UNSPECIFIED 01/02/2017 PABLO DIETZ MD, Ot E11.9 TYPE 2 DIABETES MELLITUS WITHOUT COMPLIC 01/02/2017 PABLO DIETZ MD, Ot I10 ESSENTIAL (PRIMARY) HYPERTENSION 01/02/2017 PABLO DIETZ MD Ot I34.1 NONRHEUMATIC MITRAL (VALVE) PROLAPSE 01/02/2017 PABLO DIETZ MD, Ot K21.9 GASTRO-ESOPHAGEAL REFLUX DISEASE WITHOUT 01/02/2017 PABLO DIETZ MD Ot M19.91 PRIMARY OSTEOARTHRITIS, UNSPECIFIED SITE 01/02/2017 PABLO DIETZ MD, Ot M54.9 DORSALGIA, UNSPECIFIED 01/02/2017 PABLO DIETZ MD Ot M97.02XA PERIPROSTH FRACTURE AROUND INTERNAL PROS 01/02/2017 PABLO DIETZ MD Ot Q21.1 ATRIAL SEPTAL DEFECT 01/02/2017 PABLO DIETZ MD Ot R11.0 NAUSEA 01/02/2017 PABLO DIETZ MD, Ot S42.252A DISP FX OF GREATER TUBEROSITY OF LEFT HU 01/02/2017 PABLO DIETZ MD, Ot W01.0XXA FALL SAME LEV FROM SLIP/TRIP W/O STRIKE 01/02/2017 PABLO DIETZ MD, Ot Y92.[address] IN [facility] NON-INSTITUTIONAL RESI 01/02/2017 PABLO DIETZ MD, Ot Z85.118 PERSONAL HISTORY OF MALIGNANT NEOPLASM O 01/02/2017 PABLO DIETZ MD, Ot Z85.828 PERSONAL HISTORY OF OTHER MALIGNANT NEOP 01/02/2017 PABLO DIETZ MD, Ot Z86.73 PRSNL HX OF TIA (TIA), AND CEREB INFRC W 01/02/2017 PABLO DIETZ MD, Ot Z87.891 PERSONAL HISTORY OF NICOTINE DEPENDENCE 01/02/2017 PABLO DIETZ MD, Ot Z89.019 ACQUIRED ABSENCE OF UNSPECIFIED THUMB 01/02/2017 PABLO DIETZ MD Ot Z90.2 ACQUIRED ABSENCE OF LUNG [PART OF] 01/02/2017 PABLO DIETZ MD, Ot Z96.643 PRESENCE OF ARTIFICIAL HIP JOINT, BILATE 01/04/2017 PABLO DIETZ MD, Ot D64.9 ANEMIA, UNSPECIFIED 01/04/2017 PABLO DIETZ MD Ot E03.9 HYPOTHYROIDISM, UNSPECIFIED 01/04/2017 PABLO DIETZ MD Ot E11.9 TYPE 2 DIABETES MELLITUS WITHOUT COMPLIC 01/04/2017 PABLO DIETZ MD Ot I10 ESSENTIAL (PRIMARY) HYPERTENSION 01/04/2017 PABLO DIETZ MD Ot I34.1 NONRHEUMATIC MITRAL (VALVE) PROLAPSE 01/04/2017 PABLO DIETZ MD, Ot K21.9 GASTRO-ESOPHAGEAL REFLUX DISEASE WITHOUT 01/04/2017 PABLO DIETZ MD Ot M19.91 PRIMARY OSTEOARTHRITIS, UNSPECIFIED SITE 01/04/2017 PABLO DIETZ MD Ot M54.9 DORSALGIA, UNSPECIFIED 01/04/2017 PABLO DIETZ MD Ot M97.02XA PERIPROSTH FRACTURE AROUND INTERNAL PROS 01/04/2017 PABLO DIETZ MD Ot Q21.1 ATRIAL SEPTAL DEFECT 01/04/2017 PABLO DIETZ MD Ot R11.0 NAUSEA 01/04/2017 PABLO DIETZ MD Ot S42.252A DISP FX OF GREATER TUBEROSITY OF LEFT HU 01/04/2017 PABLO DIETZ MD Ot W01.0XXA FALL SAME LEV FROM SLIP/TRIP W/O STRIKE 01/04/2017 PABLO DIETZ MD Ot Y92.[address] IN [facility] NON-INSTITUTIONAL RESI 01/04/2017 PABLO DIETZ MD, Ot Z85.118 PERSONAL HISTORY OF MALIGNANT NEOPLASM O 01/04/2017 PABLO DIETZ MD, Ot Z85.828 PERSONAL HISTORY OF OTHER MALIGNANT NEOP 01/04/2017 PABLO DIETZ MD Ot Z86.73 PRSNL HX OF TIA (TIA), AND CEREB INFRC W 01/04/2017 PABLO DIETZ MD Ot Z87.891 PERSONAL HISTORY OF NICOTINE DEPENDENCE 01/04/2017 PABLO DIETZ MD Ot Z89.019 ACQUIRED ABSENCE OF UNSPECIFIED THUMB 01/04/2017 PABLO DIETZ MD Ot Z90.2 ACQUIRED ABSENCE OF LUNG [PART OF] 01/04/2017 PABLO DIETZ MD Ot Z96.643 PRESENCE OF ARTIFICIAL HIP JOINT, BILATE 01/11/2017 REBEKAH GRECO MD Ot D56.9 THALASSEMIA, UNSPECIFIED 01/11/2017 REBEKAH GRECO MD Ot E03.9 HYPOTHYROIDISM, UNSPECIFIED 01/11/2017 REBEKAH GRECO MD Ot I10 ESSENTIAL (PRIMARY) HYPERTENSION 01/11/2017 REBEKAH GRECO MD Ot I69.354 HEMIPLGA FOLLOWING CEREBRAL INFRC AFFECT 01/11/2017 REBEKAH GRECO MD Ot J44.9 CHRONIC OBSTRUCTIVE PULMONARY DISEASE, U 01/11/2017 REBEKAH GRECO MD Ot K21.9 GASTRO-ESOPHAGEAL REFLUX DISEASE WITHOUT 01/11/2017 REBEKAH GRECO MD Ot K59.00 CONSTIPATION, UNSPECIFIED 01/11/2017 REBEKAH GRECO MD Ot M54.9 DORSALGIA, UNSPECIFIED 01/11/2017 REBEKAH GRECO MD Ot M97.02XD PERIPROSTH FRACTURE AROUND INTERNAL PROS 01/11/2017 REBEKAH GRECO MD Ot R33.9 RETENTION OF URINE, UNSPECIFIED 01/11/2017 REBEKAH GRECO MD Ot S42.302D UNSP FX SHAFT OF HUMERUS, LEFT ARM, SUBS 01/11/2017 REBEKAH GRECO MD Ot W01.0XXD FALL SAME LEV FROM SLIP/TRIP W/O STRIKE 01/11/2017 REBEKAH GRECO MD Ot Y92.[address] IN SINGLE-FAMILY (PRIVATE) HO 01/11/2017 REBEKAH GRECO MD Ot Z85.118 PERSONAL HISTORY OF MALIGNANT NEOPLASM O 01/11/2017 REBEKAH GRECO MD Ot D56.9 THALASSEMIA, UNSPECIFIED 01/11/2017 REBEKAH GRECO MD Ot E03.9 HYPOTHYROIDISM, UNSPECIFIED 01/11/2017 REBEKAH GRECO MD Ot I10 ESSENTIAL (PRIMARY) HYPERTENSION 01/11/2017 REBEKAH GRECO MD Ot I69.354 HEMIPLGA FOLLOWING CEREBRAL INFRC AFFECT 01/11/2017 REBEKAH GRECO MD Ot J44.9 CHRONIC OBSTRUCTIVE PULMONARY DISEASE, U 01/11/2017 REBEKAH GRECO MD Ot K21.9 GASTRO-ESOPHAGEAL REFLUX DISEASE WITHOUT 01/11/2017 REBEKAH GRECO MD Ot K59.00 CONSTIPATION, UNSPECIFIED 01/11/2017 REBEKAH GRECO MD Ot M54.9 DORSALGIA, UNSPECIFIED 01/11/2017 REBEKAH GRECO MD Ot M97.02XD PERIPROSTH FRACTURE AROUND INTERNAL PROS 01/11/2017 REBEKAH GRECO MD Ot R33.9 RETENTION OF URINE, UNSPECIFIED 01/11/2017 REBEKAH GRECO MD Ot S42.302D UNSP FX SHAFT OF HUMERUS, LEFT ARM, SUBS 01/11/2017 REBEKAH GRECO MD Ot W01.0XXD FALL SAME LEV FROM SLIP/TRIP W/O STRIKE 01/11/2017 REBEKAH GRECO MD Ot Y92.[address] IN SINGLE-FAMILY (PRIVATE) HO 01/11/2017 REBEKAH GRECO MD Ot Z85.118 PERSONAL HISTORY OF MALIGNANT NEOPLASM O 01/16/2017 REBEKAH GRECO MD Ot D56.9 THALASSEMIA, UNSPECIFIED 01/16/2017 REBEKAH GRECO MD Ot E03.9 HYPOTHYROIDISM, UNSPECIFIED 01/16/2017 REBEKAH GRECO MD Ot I10 ESSENTIAL (PRIMARY) HYPERTENSION 01/16/2017 REBEKAH GRECO MD Ot I69.354 HEMIPLGA FOLLOWING CEREBRAL INFRC AFFECT 01/16/2017 REBEKAH GRECO MD Ot J44.9 CHRONIC OBSTRUCTIVE PULMONARY DISEASE, U 01/16/2017 REBEKAH GRECO MD Ot K21.9 GASTRO-ESOPHAGEAL REFLUX DISEASE WITHOUT 01/16/2017 REBEKAH GRECO MD Ot K59.00 CONSTIPATION, UNSPECIFIED 01/16/2017 REBEKAH GRECO MD Ot M54.9 DORSALGIA, UNSPECIFIED 01/16/2017 REBEKAH GRECO MD Ot M97.02XD PERIPROSTH FRACTURE AROUND INTERNAL PROS 01/16/2017 REBEKAH GRECO MD Ot R33.9 RETENTION OF URINE, UNSPECIFIED 01/16/2017 REBEKAH GRECO MD Ot S42.302D UNSP FX SHAFT OF HUMERUS, LEFT ARM, SUBS 01/16/2017 REBEKAH GRECO MD Ot W01.0XXD FALL SAME LEV FROM SLIP/TRIP W/O STRIKE 01/16/2017 REBEKAH GRECO MD Ot Y92.[address] IN SINGLE-FAMILY (PRIVATE) HO 01/16/2017 REBEKAH GRECO MD Ot Z85.118 PERSONAL HISTORY OF MALIGNANT NEOPLASM O 01/16/2017 REBEKAH GRECO MD Ot D56.9 THALASSEMIA, UNSPECIFIED 01/16/2017 REBEKAH GRECO MD Ot E03.9 HYPOTHYROIDISM, UNSPECIFIED 01/16/2017 REBEKAH GRECO MD Ot I10 ESSENTIAL (PRIMARY) HYPERTENSION 01/16/2017 REBEKAH GRECO MD Ot I69.354 HEMIPLGA FOLLOWING CEREBRAL INFRC AFFECT 01/16/2017 REBEKAH GRECO MD Ot J44.9 CHRONIC OBSTRUCTIVE PULMONARY DISEASE, U 01/16/2017 REBEKAH GRECO MD Ot K21.9 GASTRO-ESOPHAGEAL REFLUX DISEASE WITHOUT 01/16/2017 REBEKAH GRECO MD Ot K59.00 CONSTIPATION, UNSPECIFIED 01/16/2017 REBEKAH GRECO MD Ot M54.9 DORSALGIA, UNSPECIFIED 01/16/2017 REBEKAH GRECO MD Ot M97.02XD PERIPROSTH FRACTURE AROUND INTERNAL PROS 01/16/2017 REBEKAH GRECO MD Ot R33.9 RETENTION OF URINE, UNSPECIFIED 01/16/2017 REBEKAH GRECO MD Ot S42.302D UNSP FX SHAFT OF HUMERUS, LEFT ARM, SUBS 01/16/2017 REBEKAH GRECO MD Ot W01.0XXD FALL SAME LEV FROM SLIP/TRIP W/O STRIKE 01/16/2017 REBEKAH GRECO MD Ot Y92.[address] IN SINGLE-FAMILY (PRIVATE) HO 01/16/2017 REBEKAH GRECO MD Ot Z85.118 PERSONAL HISTORY OF MALIGNANT NEOPLASM O 01/23/2017 REBEKAH GRECO MD Ot D56.9 THALASSEMIA, UNSPECIFIED 01/23/2017 REBEKAH GRECO MD Ot E03.9 HYPOTHYROIDISM, UNSPECIFIED 01/23/2017 REBEKAH GRECO MD Ot I10 ESSENTIAL (PRIMARY) HYPERTENSION 01/23/2017 REBEKAH GRECO MD Ot I69.354 HEMIPLGA FOLLOWING CEREBRAL INFRC AFFECT 01/23/2017 REBEKAH GRECO MD Ot J44.9 CHRONIC OBSTRUCTIVE PULMONARY DISEASE, U 01/23/2017 REBEKAH GRECO MD Ot K21.9 GASTRO-ESOPHAGEAL REFLUX DISEASE WITHOUT 01/23/2017 REBEKAH GRECO MD Ot K59.00 CONSTIPATION, UNSPECIFIED 01/23/2017 REBEKAH GRECO MD Ot M54.9 DORSALGIA, UNSPECIFIED 01/23/2017 REBEKAH GRECO MD Ot M97.02XD PERIPROSTH FRACTURE AROUND INTERNAL PROS 01/23/2017 REBEKAH GRECO MD Ot R33.9 RETENTION OF URINE, UNSPECIFIED 01/23/2017 REBEKAH GRECO MD Ot S42.302D UNSP FX SHAFT OF HUMERUS, LEFT ARM, SUBS 01/23/2017 REBEKAH GRECO MD Ot W01.0XXD FALL SAME LEV FROM SLIP/TRIP W/O STRIKE 01/23/2017 REBEKAH GRECO MD Ot Y92.[address] IN SINGLE-FAMILY (PRIVATE) 01/23/2017 REBEKAH GRECO MD Ot Z85.118 PERSONAL HISTORY OF MALIGNANT NEOPLASM O 01/24/2017 REBEKAH GRECO MD Ot B95.2 ENTEROCOCCUS THE CAUSE OF DISEASES CL 01/24/2017 REBEKAH GRECO MD Ot B95.4 OTH STREPTOCOCCUS THE CAUSE OF DISEAS 01/24/2017 REBEKAH GRECO MD Ot D56.9 THALASSEMIA, UNSPECIFIED 01/24/2017 REBEKAH GRECO MD Ot E03.9 HYPOTHYROIDISM, UNSPECIFIED 01/24/2017 REBEKAH GRECO MD Ot I10 ESSENTIAL (PRIMARY) HYPERTENSION 01/24/2017 REBEKAH GRECO MD Ot I69.354 HEMIPLGA FOLLOWING CEREBRAL INFRC AFFECT 01/24/2017 REBEKAH GRECO MD Ot J44.9 CHRONIC OBSTRUCTIVE PULMONARY DISEASE, U 01/24/2017 REBEKAH GRECO MD Ot K21.9 GASTRO-ESOPHAGEAL REFLUX DISEASE WITHOUT 01/24/2017 REBEKAH GRECO MD Ot K59.00 CONSTIPATION, UNSPECIFIED 01/24/2017 REBEKAH GRECO MD Ot M54.9 DORSALGIA, UNSPECIFIED 01/24/2017 REBEKAH GRECO MD Ot M97.02XD PERIPROSTH FRACTURE AROUND INTERNAL PROS 01/24/2017 REBEKAH GRECO MD Ot N39.0 URINARY TRACT INFECTION, SITE NOT SPECIF 01/24/2017 REBEKAH GRECO MD Ot R11.0 NAUSEA 01/24/2017 REBEKAH GRECO MD, Ot R33.9 RETENTION OF URINE, UNSPECIFIED 01/24/2017 REBEKAH GRECO MD, Ot R42 DIZZINESS AND GIDDINESS 01/24/2017 REBEKAH GRECO MD, Ot S42.302D UNSP FX SHAFT OF HUMERUS, LEFT ARM, SUBS 01/24/2017 REBEKAH GRECO MD, Ot T83.511A I/I REACT D/T INDWELLING URETHRAL CATHET 01/24/2017 REBEKAH GRECO MD, Ot W01.0XXD FALL SAME LEV FROM SLIP/TRIP W/O STRIKE 01/24/2017 REBEKAH GRECO MD, Ot Y92.[address] IN SINGLE-FAMILY (PRIVATE) HO 01/24/2017 REBEKAH GRECO MD, Ot Z23 ENCOUNTER FOR IMMUNIZATION 01/24/2017 REBEKAH GRECO MD, Ot Z85.118 PERSONAL HISTORY OF MALIGNANT NEOPLASM O 01/24/2017 REBEKAH GRECO MD, Ot Z90.2 ACQUIRED ABSENCE OF LUNG [PART OF] 01/29/2017 YVON AGOSTO MD, Ot C34.11 MALIGNANT NEOPLASM OF UPPER LOBE, RIGHT 01/29/2017 YVON AGOSTO MD, Ot D64.9 ANEMIA, UNSPECIFIED 01/29/2017 YVON AGOSTO MD, Ot E03.9 HYPOTHYROIDISM, UNSPECIFIED 01/29/2017 YVON AGOSTO MD Ot E78.5 HYPERLIPIDEMIA, UNSPECIFIED 01/29/2017 YVON AGOSTO MD Ot F17.210 NICOTINE DEPENDENCE, CIGARETTES, UNCOMPL 01/29/2017 YVON AGOSTO MD Ot I10 ESSENTIAL (PRIMARY) HYPERTENSION 01/29/2017 YVON AGOSTO MD, Ot K21.9 GASTRO-ESOPHAGEAL REFLUX DISEASE WITHOUT 01/29/2017 YVON AGOSTO MD, Ot Z79.899 OTHER PENITENTIARY (CURRENT) DRUG THERAPY 03/05/2017 YVON AGOSTO MD, Ot C34.11 MALIGNANT NEOPLASM OF UPPER LOBE, RIGHT 03/05/2017 YVON AGOSTO MD, Ot D64.9 ANEMIA, UNSPECIFIED 03/05/2017 YVON AGOSTO MD, Ot E03.9 HYPOTHYROIDISM, UNSPECIFIED 03/05/2017 YVON AGOSTO MD Ot E78.5 HYPERLIPIDEMIA, UNSPECIFIED 03/05/2017 YVON AGOSTO MD Ot F17.210 NICOTINE DEPENDENCE, CIGARETTES, UNCOMPL 03/05/2017 YVON AGOSTO MD Ot I10 ESSENTIAL (PRIMARY) HYPERTENSION 03/05/2017 YVON AGOSTO MD Ot K21.9 GASTRO-ESOPHAGEAL REFLUX DISEASE WITHOUT 03/05/2017 YVON AGOSTO MD Ot Z79.899 OTHER PENITENTIARY (CURRENT) DRUG THERAPY 04/16/2017 Ot V76.12 04/16/2017 Ot 721.3 04/16/2017 Ot 244.9 HYPOTHYROIDISM NOS 04/16/2017 Ot 250.00 DIAB EULALIA WO COMPL, TYPE II OR UNSPEC TY 04/16/2017 Ot 305.1 TOBACCO USE DISORDER 04/16/2017 Ot 717.40 DERANG LAT MENISCUS NOS 04/16/2017 Ot 717.7 CHONDROMALACIA PATELLAE 04/16/2017 Ot V58.66 LONG-TERM ( CURRENT) USE OF ASPIRIN 04/16/2017 Ot V58.69 OT MED,LT, CURRENT USE 04/16/2017 Ot V72.83 EXAM PRE- OPERATIVE NEC 04/16/2017 Ot V74.8 SCREEN- BACTERIAL DIS NEC 04/16/2017 SMITHA MORAN, SARMAD Hernandez Ot V72.84 EXAM PRE-OPERATIVE NOS 04/16/2017 ALEXIS JACKSON DO Ot 305.1 TOBACCO USE DISORDER 04/16/2017 ALEXIS JACKSON DO Ot 793.19 OTHER NONSPECIFIC ABNORMAL FINDING OF BORA 04/16/2017 ALEXIS JACKSON DO Ot V76.12 OT SCREEN MAMMO-MALIGN NEOPLASM OF ALMA DELIA 04/16/2017 ROBERT MORAN, RODRI Fuchs Ot C34.11 MALIGNANT NEOPLASM OF UPPER LOBE, RIGHT 04/16/2017 ROBERT MORAN, RODRI Fuchs Ot D64.9 ANEMIA, UNSPECIFIED 04/16/2017 RODRI JONES MD Ot E03.9 HYPOTHYROIDISM, UNSPECIFIED 04/16/2017 RODRI JONES MD Ot E78.5 HYPERLIPIDEMIA, UNSPECIFIED 04/16/2017 RODRI JONES MD Ot F17.210 NICOTINE DEPENDENCE, CIGARETTES, UNCOMPL 04/16/2017 RODRI JONES MD Ot I10 ESSENTIAL (PRIMARY) HYPERTENSION 04/16/2017 RODRI JONES MD Ot K21.9 GASTRO-ESOPHAGEAL REFLUX DISEASE WITHOUT 04/16/2017 RODRI JONES MD Ot Z79.899 OTHER OXYGEN THERAPY TECHNICIAN (CURRENT) DRUG THERAPY 04/24/2017 SURENDRA MORAN, YVON Akins C34.11 MALIGNANT NEOPLASM OF UPPER LOBE, RIGHT 04/24/2017 YVON AGOSTO MD Ot D64.9 ANEMIA, UNSPECIFIED 04/24/2017 SURENDRA MORAN, YVON Ot E03.9 HYPOTHYROIDISM, UNSPECIFIED 04/24/2017 SURENDRA MORAN, YVON Ot E78.5 HYPERLIPIDEMIA, UNSPECIFIED 04/24/2017 SURENDRA MORAN, YVON Ot F17.210 NICOTINE DEPENDENCE, CIGARETTES, UNCOMPL 04/24/2017 YVON AGOSTO MD Ot I10 ESSENTIAL (PRIMARY) HYPERTENSION 04/24/2017 YVON AGOSTO MD Ot K21.9 GASTRO-ESOPHAGEAL REFLUX DISEASE WITHOUT 04/24/2017 SURENDRA MORAN, YVON Ot Z79.899 OTHER PENITENTIARY (CURRENT) DRUG THERAPY 04/25/2017 YVON AGOSTO MD Ot C34.11 MALIGNANT NEOPLASM OF UPPER LOBE, RIGHT 04/25/2017 YVON AGOSTO MD Ot D64.9 ANEMIA, UNSPECIFIED 04/25/2017 SURENDRA MORAN, YVON Ot E03.9 HYPOTHYROIDISM, UNSPECIFIED 04/25/2017 SURENDRA MORAN, YVON Ot E78.5 HYPERLIPIDEMIA, UNSPECIFIED 04/25/2017 SURENDRA MORAN, YVON Ot F17.210 NICOTINE DEPENDENCE, CIGARETTES, UNCOMPL 04/25/2017 YVON AGOSTO MD Ot I10 ESSENTIAL (PRIMARY) HYPERTENSION 04/25/2017 YVON AGOSTO MD, Ot K21.9 GASTRO-ESOPHAGEAL REFLUX DISEASE WITHOUT 04/25/2017 SURENDRA MORAN, YVON Ot Z79.899 OTHER PENITENTIARY (CURRENT) DRUG THERAPY 06/10/2017 ALEXIS JACKSON DO Ot 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 06/10/2017 ALEXIS JACKSON DO, Ot G93.89 OTHER SPECIFIED DISORDERS OF BRAIN 06/10/2017 ALEXIS JACKSON DO Ot 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 06/10/2017 ALEXIS JACKSON DO Ot S92.354A NONDISP FX OF FIFTH METATARSAL BONE, RIG 06/12/2017 PABLO DIETZ MD, Ot C79.31 SECONDARY MALIGNANT NEOPLASM OF BRAIN 06/12/2017 PABLO DIETZ MD Ot E03.9 HYPOTHYROIDISM, UNSPECIFIED 06/12/2017 PABLO DIETZ MD Ot E11.9 TYPE 2 DIABETES MELLITUS WITHOUT COMPLIC 06/12/2017 PABLO DIETZ MD, Ot 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 06/12/2017 PABLO DIETZ MD Ot I10 ESSENTIAL (PRIMARY) HYPERTENSION 06/12/2017 PABLO DIETZ MD Ot I34.1 NONRHEUMATIC MITRAL (VALVE) PROLAPSE 06/12/2017 PABLO DIETZ MD Ot K21.9 GASTRO-ESOPHAGEAL REFLUX DISEASE WITHOUT 06/12/2017 PABLO DIETZ MD Ot M19.91 PRIMARY OSTEOARTHRITIS, UNSPECIFIED SITE 06/12/2017 PABLO DIETZ MD, Ot M54.9 DORSALGIA, UNSPECIFIED 06/12/2017 PABLO DIETZ MD Ot Q21.1 ATRIAL SEPTAL DEFECT 06/12/2017 PABLO DIETZ MD Ot R11.2 NAUSEA WITH VOMITING, UNSPECIFIED 06/12/2017 PABLO DIETZ MD Ot Z85.118 PERSONAL HISTORY OF MALIGNANT NEOPLASM O 06/12/2017 PABLO DIETZ MD Ot Z87.891 PERSONAL HISTORY OF NICOTINE DEPENDENCE 06/12/2017 PABLO DIETZ MD Ot Z90.2 ACQUIRED ABSENCE OF LUNG [PART OF] 06/12/2017 PABLO DIETZ MD Ot Z96.643 PRESENCE OF ARTIFICIAL HIP JOINT, BILATE 06/13/2017 PABLO DIETZ MD Ot C71.1 MALIGNANT NEOPLASM OF FRONTAL LOBE 06/13/2017 PABLO DIETZ MD Ot D49.6 NEOPLASM OF UNSPECIFIED BEHAVIOR OF BRAI 06/13/2017 PABLO DIETZ MD Ot D64.9 ANEMIA, UNSPECIFIED 06/13/2017 PABLO DIETZ MD Ot E03.9 HYPOTHYROIDISM, UNSPECIFIED 06/13/2017 PABLO DIETZ MD Ot E11.9 TYPE 2 DIABETES MELLITUS WITHOUT COMPLIC 06/13/2017 PABLO DIETZ MD Ot 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 06/13/2017 PABLO DIETZ MD Ot I10 ESSENTIAL (PRIMARY) HYPERTENSION 06/13/2017 PABLO DIETZ MD Ot I34.1 NONRHEUMATIC MITRAL (VALVE) PROLAPSE 06/13/2017 PABLO DIETZ MD Ot K21.9 GASTRO-ESOPHAGEAL REFLUX DISEASE WITHOUT 06/13/2017 PABLO DIETZ MD, Ot M19.91 PRIMARY OSTEOARTHRITIS, UNSPECIFIED SITE 06/13/2017 PABLO DIETZ MD, Ot M54.9 DORSALGIA, UNSPECIFIED 06/13/2017 PABLO DIETZ MD, Ot Q21.1 ATRIAL SEPTAL DEFECT 06/13/2017 PABLO DIETZ MD, Ot R11.2 NAUSEA WITH VOMITING, UNSPECIFIED 06/13/2017 PABLO DIETZ MD, Ot R40.4 TRANSIENT ALTERATION OF AWARENESS 06/13/2017 PABLO DIETZ MD, Ot Z85.118 PERSONAL HISTORY OF MALIGNANT NEOPLASM O 06/13/2017 PABLO DIETZ MD, Ot Z86.73 PRSNL HX OF TIA (TIA), AND CEREB INFRC W 06/13/2017 PABLO DIETZ MD, Ot Z87.891 PERSONAL HISTORY OF NICOTINE DEPENDENCE 06/13/2017 PABLO DIETZ MD, Ot Z90.2 ACQUIRED ABSENCE OF LUNG [PART OF] 06/13/2017 PABLO DIETZ MD, Ot Z96.643 PRESENCE OF ARTIFICIAL HIP JOINT, BILATE Procedures Code Description Performed By Performed On 79.15 CLOSED RED-INT FIX FEMUR 04/16/2008 Results Test Result Range [id number] - 11/30/15 12:57 Serum or plasma urea nitrogen measurement (mass/volume) 6 mg/dL 7-18 Serum or plasma creatinine measurement (mass/volume) 0.67 mg/dL 0.60-1.30 Serum or plasma urea nitrogen/creatinine mass ratio 9 NRG Serum or plasma creatinine measurement with calculation of estimated glomerular filtration rate > NRG Complete blood count (CBC) with automated white blood cell (WBC) differential - 01/01/17 20:10 Blood leukocytes automated count (number/volume) 10.2 10*3/uL 4.3-11.0 Blood erythrocytes automated count (number/volume) 4.71 10*6/uL 4.35-5.85 Venous blood hemoglobin measurement (mass/volume) 11.4 g/dL 11.5-16.0 Blood hematocrit (volume fraction) 33 % 35-52 Automated erythrocyte mean corpuscular volume 71 [foz_us] 80-99 Automated erythrocyte mean corpuscular hemoglobin (mass per erythrocyte) 24 pg 25-34 Automated erythrocyte mean corpuscular hemoglobin concentration measurement ( mass/volume) 34 g/dL 32-36 Automated erythrocyte distribution width ratio 13.9 % 10.0-14.5 Automated blood platelet count (count/volume) 292 10*3/uL 130-400 Automated blood platelet mean volume measurement 10.4 [foz_us] 7.4-10.4 Automated blood neutrophils/100 leukocytes 73 % 42-75 Automated blood lymphocytes/100 leukocytes 16 % 12-44 Blood monocytes/100 leukocytes 10 % 0-12 Automated blood eosinophils/100 leukocytes 1 % 0-10 Automated blood basophils/100 leukocytes 0 % 0-10 Blood neutrophils automated count (number/volume) 7.5 10*3 1.8-7.8 Blood lymphocytes automated count (number/volume) 1.7 10*3 1.0-4.0 Blood monocytes automated count (number/volume) 1.0 10*3 0.0-1.0 Automated eosinophil count 0.1 10*3/uL 0.0-0.3 Automated blood basophil count (count/volume) 0.0 10*3/uL 0.0-0.1 Comprehensive metabolic panel - 01/01/17 20:10 Serum or plasma sodium measurement (moles/volume) 135 mmol/L 135-145 Serum or plasma potassium measurement (moles/volume) 3.7 mmol/L 3.6-5.0 Serum or plasma chloride measurement (moles/volume) 100 mmol/L 98-107 Carbon dioxide 21 mmol/L 21-32 Serum or plasma anion gap determination (moles/volume) 14 mmol/L 5-14 Serum or plasma urea nitrogen measurement (mass/volume) 18 mg/dL 7-18 Serum or plasma creatinine measurement (mass/volume) 0.83 mg/dL 0.60-1.30 Serum or plasma urea nitrogen/creatinine mass ratio 22 NRG Serum or plasma creatinine measurement with calculation of estimated glomerular filtration rate > NRG Serum or plasma glucose measurement (mass/volume) 139 mg/dL 70-105 Serum or plasma calcium measurement (mass/volume) 10.0 mg/dL 8.5-10.1 Serum or plasma total bilirubin measurement (mass/volume) 0.4 mg/dL 0.1-1.0 Serum or plasma alkaline phosphatase measurement (enzymatic activity/volume) 77 U/L 40-136 Serum or plasma aspartate aminotransferase measurement (enzymatic activity/ volume) 16 U/L 5-34 Serum or plasma alanine aminotransferase measurement (enzymatic activity/volume ) 16 U/L 0-55 Serum or plasma protein measurement (mass/volume) 7.2 g/dL 6.4-8.2 Serum or plasma albumin measurement (mass/volume) 3.9 g/dL 3.2-4.5 Complete blood count (CBC) with automated white blood cell (WBC) differential - 01/03/17 05:31 Blood leukocytes automated count (number/volume) 8.8 10*3/uL 4.3-11.0 Blood erythrocytes automated count (number/volume) 4.36 10*6/uL 4.35-5.85 Venous blood hemoglobin measurement (mass/volume) 10.5 g/dL 11.5-16.0 Blood hematocrit (volume fraction) 32 % 35-52 Automated erythrocyte mean corpuscular volume 73 [foz_us] 80-99 Automated erythrocyte mean corpuscular hemoglobin (mass per erythrocyte) 24 pg 25-34 Automated erythrocyte mean corpuscular hemoglobin concentration measurement ( mass/volume) 33 g/dL 32-36 Automated erythrocyte distribution width ratio 13.9 % 10.0-14.5 Automated blood platelet count (count/volume) 246 10*3/uL 130-400 Automated blood platelet mean volume measurement 10.2 [foz_us] 7.4-10.4 Automated blood neutrophils/100 leukocytes 66 % 42-75 Automated blood lymphocytes/100 leukocytes 17 % 12-44 Blood monocytes/100 leukocytes 15 % 0-12 Automated blood eosinophils/100 leukocytes 1 % 0-10 Automated blood basophils/100 leukocytes 0 % 0-10 Blood neutrophils automated count (number/volume) 5.9 10*3 1.8-7.8 Blood lymphocytes automated count (number/volume) 1.5 10*3 1.0-4.0 Blood monocytes automated count (number/volume) 1.3 10*3 0.0-1.0 Automated eosinophil count 0.1 10*3/uL 0.0-0.3 Automated blood basophil count (count/volume) 0.0 10*3/uL 0.0-0.1 Whole blood basic metabolic panel - 01/03/17 05:31 Serum or plasma sodium measurement (moles/volume) 137 mmol/L 135-145 Serum or plasma potassium measurement (moles/volume) 3.9 mmol/L 3.6-5.0 Serum or plasma chloride measurement (moles/volume) 100 mmol/L 98-107 Carbon dioxide 28 mmol/L 21-32 Serum or plasma anion gap determination (moles/volume) 9 mmol/L 5-14 Serum or plasma urea nitrogen measurement (mass/volume) 18 mg/dL 7-18 Serum or plasma creatinine measurement (mass/volume) 0.84 mg/dL 0.60-1.30 Serum or plasma urea nitrogen/creatinine mass ratio 21 NRG Serum or plasma creatinine measurement with calculation of estimated glomerular filtration rate > NRG Serum or plasma glucose measurement (mass/volume) 144 mg/dL 70-105 Serum or plasma calcium measurement (mass/volume) 9.1 mg/dL 8.5-10.1 Complete urinalysis with reflex to culture - 01/05/17 04:28 Urine color determination YELLOW NRG Urine clarity determination CLEAR NRG Urine pH measurement by test strip 6 5-9 Specific gravity of urine by test strip 1.010 1.016- 1.022 Urine protein assay by test strip, semi-quantitative NEGATIVE NEGATIVE Urine glucose detection by automated test strip NEGATIVE NEGATIVE Erythrocytes detection in urine sediment by light microscopy NEGATIVE NEGATIVE Urine ketones detection by automated test strip NEGATIVE NEGATIVE Urine nitrite detection by test strip NEGATIVE NEGATIVE Urine total bilirubin detection by test strip NEGATIVE NEGATIVE Urine urobilinogen measurement by automated test strip (mass/volume) NORMAL NORMAL Urine leukocyte esterase detection by dipstick 1+ NEGATIVE Automated urine sediment erythrocyte count by microscopy (number/high power field) NONE NRG Automated urine sediment leukocyte count by microscopy (number/high power field ) [HPF] NRG Bacteria detection in urine sediment by light microscopy TRACE NRG Crystals detection in urine sediment by light microscopy NONE NRG Casts detection in urine sediment by light microscopy NONE NRG Mucus detection in urine sediment by light microscopy NEGATIVE NRG Complete urinalysis with reflex to culture YES NRG Bacterial urine culture - 01/05/17 04:28 Bacterial urine culture NG NRG Complete urinalysis with reflex to culture - 01/19/17 15:10 Urine color determination ORANGE NRG Urine clarity determination CLEAR NRG Urine pH measurement by test strip 6.5 5-9 Specific gravity of urine by test strip 1.010 1.016- 1.022 Urine protein assay by test strip, semi-quantitative 1+ NEGATIVE Urine glucose detection by automated test strip NEGATIVE NEGATIVE Erythrocytes detection in urine sediment by light microscopy 1+ NEGATIVE Urine ketones detection by automated test strip NEGATIVE NEGATIVE Urine nitrite detection by test strip POSITIVE NEGATIVE Urine total bilirubin detection by test strip 3+ NEGATIVE Urine urobilinogen measurement by automated test strip (mass/volume) 8 mg/dL NORMAL Urine leukocyte esterase detection by dipstick 2+ NEGATIVE Automated urine sediment erythrocyte count by microscopy (number/high power field) [HPF] NRG Automated urine sediment leukocyte count by microscopy (number/high power field ) [HPF] NRG Bacteria detection in urine sediment by light microscopy NEGATIVE NRG Squamous epithelial cells detection in urine sediment by light microscopy 10-25 NRG Crystals detection in urine sediment by light microscopy NONE NRG Casts detection in urine sediment by light microscopy NONE NRG Mucus detection in urine sediment by light microscopy NEGATIVE NRG Complete urinalysis with reflex to culture YES NRG Bacterial urine culture - 01/19/17 15:10 Bacterial urine culture [id number] NRG COLONY COUNT >100,000/ML NRG FTX;REPORTABLE SENSITIVITY NOT USUALLY PERFORMED FOR NRG URINE CULTURE RESULTS PLUS NRG FREE TEXT ENTRY 2 THIS OR[facility]ISM [facility] Bacterial susceptibility panel - 01/19/17 15:10 Gentamicin susceptibility test by minimum inhibitory concentration S NRG Vancomycin susceptibility test by minimum inhibitory concentration S NRG Levofloxacin susceptibility test by minimum inhibitory concentration 1 NRG Tetracycline susceptibility test by minimum inhibitory concentration >= NRG Ampicillin susceptibility test by minimum inhibitory concentration < = NRG Nitrofurantoin susceptibility test by minimum inhibitory concentration <= NRG Linezolid susceptibility test by minimum inhibitory concentration 2 NR Serum ragweed IgE antibody assay - 01/24/17 13:53 Serum ragweed IgE antibody assay 2.2 % 0.0-5.0 Complete blood count (CBC) with automated white blood cell (WBC) differential - 06/11/17 22:38 Blood leukocytes automated count (number/volume) 7.8 10*3/uL 4.3-11.0 Blood erythrocytes automated count (number/volume) 5.05 10*6/uL 4.35-5.85 Venous blood hemoglobin measurement (mass/volume) 11.8 g/dL 11.5-16.0 Blood hematocrit (volume fraction) 35 % 35-52 Automated erythrocyte mean corpuscular volume 70 [foz_us] 80-99 Automated erythrocyte mean corpuscular hemoglobin (mass per erythrocyte) 23 pg 25-34 Automated erythrocyte mean corpuscular hemoglobin concentration measurement ( mass/volume) 34 g/dL 32-36 Automated erythrocyte distribution width ratio 14.6 % 10.0-14.5 Automated blood platelet count (count/volume) 351 10*3/uL 130-400 Automated blood platelet mean volume measurement 10.9 [foz_us] 7.4-10.4 Automated blood neutrophils/100 leukocytes 81 % 42-75 Automated blood lymphocytes/100 leukocytes 14 % 12-44 Blood monocytes/100 leukocytes 5 % 0-12 Automated blood eosinophils/100 leukocytes 0 % 0-10 Automated blood basophils/100 leukocytes 0 % 0-10 Blood neutrophils automated count (number/volume) 6.3 10*3 1.8-7.8 Blood lymphocytes automated count (number/volume) 1.1 10*3 1.0-4.0 Blood monocytes automated count (number/volume) 0.4 10*3 0.0-1.0 Automated eosinophil count 0.0 10*3/uL 0.0-0.3 Automated blood basophil count (count/volume) 0.0 10*3/uL 0.0-0.1 Comprehensive metabolic panel - 06/11/17 22:38 Serum or plasma sodium measurement (moles/volume) 132 mmol/L 135-145 Serum or plasma potassium measurement (moles/volume) 3.4 mmol/L 3.6-5.0 Serum or plasma chloride measurement (moles/volume) 94 mmol/L 98-107 Carbon dioxide 21 mmol/L 21-32 Serum or plasma anion gap determination (moles/volume) 17 mmol/L 5-14 Serum or plasma urea nitrogen measurement (mass/volume) 6 mg/dL 7-18 Serum or plasma creatinine measurement (mass/volume) 0.65 mg/dL 0.60-1.30 Serum or plasma urea nitrogen/creatinine mass ratio 9 NRG Serum or plasma creatinine measurement with calculation of estimated glomerular filtration rate > NRG Serum or plasma glucose measurement (mass/volume) 194 mg/dL 70-105 Serum or plasma calcium measurement (mass/volume) 9.8 mg/dL 8.5-10.1 Serum or plasma total bilirubin measurement (mass/volume) 0.6 mg/dL 0.1-1.0 Serum or plasma alkaline phosphatase measurement (enzymatic activity/volume) 75 U/L 40-136 Serum or plasma aspartate aminotransferase measurement (enzymatic activity/ volume) 14 U/L 5-34 Serum or plasma alanine aminotransferase measurement (enzymatic activity/volume ) 9 U/L 0-55 Serum or plasma protein measurement (mass/volume) 7.4 g/dL 6.4-8.2 Serum or plasma albumin measurement (mass/volume) 4.1 g/dL 3.2-4.5 Complete blood count (CBC) with automated white blood cell (WBC) differential - 06/12/17 05:13 Blood leukocytes automated count (number/volume) 4.7 10*3/uL 4.3-11.0 Blood erythrocytes automated count (number/volume) 4.67 10*6/uL 4.35-5.85 Venous blood hemoglobin measurement (mass/volume) 10.9 g/dL 11.5-16.0 Blood hematocrit (volume fraction) 32 % 35-52 Automated erythrocyte mean corpuscular volume 69 [foz_us] 80-99 Automated erythrocyte mean corpuscular hemoglobin (mass per erythrocyte) 23 pg 25-34 Automated erythrocyte mean corpuscular hemoglobin concentration measurement ( mass/volume) 34 g/dL 32-36 Automated erythrocyte distribution width ratio 14.8 % 10.0-14.5 Automated blood platelet count (count/volume) 304 10*3/uL 130-400 Automated blood platelet mean volume measurement 10.8 [foz_us] 7.4-10.4 Automated blood neutrophils/100 leukocytes 89 % 42-75 Automated blood lymphocytes/100 leukocytes 10 % 12-44 Blood monocytes/100 leukocytes 0 % 0-12 Automated blood eosinophils/100 leukocytes 0 % 0-10 Automated blood basophils/100 leukocytes 0 % 0-10 Blood neutrophils automated count (number/volume) 4.2 10*3 1.8-7.8 Blood lymphocytes automated count (number/volume) 0.5 10*3 1.0-4.0 Blood monocytes automated count (number/volume) 0.0 10*3 0.0-1.0 Automated eosinophil count 0.0 10*3/uL 0.0-0.3 Automated blood basophil count (count/volume) 0.0 10*3/uL 0.0-0.1 Comprehensive metabolic panel - 06/12/17 05:13 Serum or plasma sodium measurement (moles/volume) 133 mmol/L 135-145 Serum or plasma potassium measurement (moles/volume) 3.5 mmol/L 3.6-5.0 Serum or plasma chloride measurement (moles/volume) 99 mmol/L 98-107 Carbon dioxide 23 mmol/L 21-32 Serum or plasma anion gap determination (moles/volume) 11 mmol/L 5-14 Serum or plasma urea nitrogen measurement (mass/volume) 6 mg/dL 7-18 Serum or plasma creatinine measurement (mass/volume) 0.59 mg/dL 0.60-1.30 Serum or plasma urea nitrogen/creatinine mass ratio 10 NRG Serum or plasma creatinine measurement with calculation of estimated glomerular filtration rate > NRG Serum or plasma glucose measurement (mass/volume) 180 mg/dL 70-105 Serum or plasma calcium measurement (mass/volume) 9.0 mg/dL 8.5-10.1 Serum or plasma total bilirubin measurement (mass/volume) 0.4 mg/dL 0.1-1.0 Serum or plasma alkaline phosphatase measurement (enzymatic activity/volume) 63 U/L 40-136 Serum or plasma aspartate aminotransferase measurement (enzymatic activity/ volume) 12 U/L 5-34 Serum or plasma alanine aminotransferase measurement (enzymatic activity/volume ) 6 U/L 0-55 Serum or plasma protein measurement (mass/volume) 6.7 g/dL 6.4-8.2 Serum or plasma albumin measurement (mass/volume) 3.7 g/dL 3.2-4.5 Complete blood count (CBC) with automated white blood cell (WBC) differential - 06/13/17 05:49 Blood leukocytes automated count (number/volume) 10.7 10*3/uL 4.3-11.0 Blood erythrocytes automated count (number/volume) 4.58 10*6/uL 4.35-5.85 Venous blood hemoglobin measurement (mass/volume) 10.8 g/dL 11.5-16.0 Blood hematocrit (volume fraction) 32 % 35-52 Automated erythrocyte mean corpuscular volume 70 [foz_us] 80-99 Automated erythrocyte mean corpuscular hemoglobin (mass per erythrocyte) 24 pg 25-34 Automated erythrocyte mean corpuscular hemoglobin concentration measurement ( mass/volume) 34 g/dL 32-36 Automated erythrocyte distribution width ratio 14.8 % 10.0-14.5 Automated blood platelet count (count/volume) 307 10*3/uL 130-400 Automated blood platelet mean volume measurement 11.1 [foz_us] 7.4-10.4 Automated blood neutrophils/100 leukocytes 91 % 42-75 Automated blood lymphocytes/100 leukocytes 5 % 12-44 Blood monocytes/100 leukocytes 4 % 0-12 Automated blood eosinophils/100 leukocytes 0 % 0-10 Automated blood basophils/100 leukocytes 0 % 0-10 Blood neutrophils automated count (number/volume) 9.7 10*3 1.8-7.8 Blood lymphocytes automated count (number/volume) 0.5 10*3 1.0-4.0 Blood monocytes automated count (number/volume) 0.4 10*3 0.0-1.0 Automated eosinophil count 0.0 10*3/uL 0.0-0.3 Automated blood basophil count (count/volume) 0.0 10*3/uL 0.0-0.1 Whole blood basic metabolic panel - 06/13/17 05:49 Serum or plasma sodium measurement (moles/volume) 139 mmol/L 135-145 Serum or plasma potassium measurement (moles/volume) 3.5 mmol/L 3.6-5.0 Serum or plasma chloride measurement (moles/volume) 105 mmol/L 98-107 Carbon dioxide 23 mmol/L 21-32 Serum or plasma anion gap determination (moles/volume) 11 mmol/L 5-14 Serum or plasma urea nitrogen measurement (mass/volume) 12 mg/dL 7-18 Serum or plasma creatinine measurement (mass/volume) 0.59 mg/dL 0.60-1.30 Serum or plasma urea nitrogen/creatinine mass ratio 20 NRG Serum or plasma creatinine measurement with calculation of estimated glomerular filtration rate > NRG Serum or plasma glucose measurement (mass/volume) 170 mg/dL 70-105 Serum or plasma calcium measurement (mass/volume) 9.2 mg/dL 8.5-10.1 Encounters ACCT No. Visit Date/Time Discharge Status Pt. Type Provider Facility Loc./Unit Complaint [id number] 06/11/2017 23:42:00 06/13/2017 16:45:00 DIS Outpatient PABLO DIETZ MD [facility] 4TH BRAIN CA,INTRACTABLE N/V [id number] 06/07/2017 10:11:00 06/07/2017 23:59:59 CLS Outpatient ALEXIS JACKSON DO [facility] RAD DIZZINESS [id number] 04/25/2017 00:19:00 04/25/2017 23:59:59 CLS Preadmit YVON AGOSTO MD [facility] ONC [id number] 01/24/2017 13:37:00 04/24/2017 00:01:00 DIS Outpatient YVON AGOSTO MD [facility] ONC [id number] 01/04/2017 10:14:00 01/24/2017 13:40:00 DIS Inpatient ANGUS MORAN, REBEKAH Naranjo [facility] IRF Left humerus fx; left periprosthetic hip fx [id number] 01/01/2017 21:43:00 01/04/2017 09:57:00 DIS Inpatient PABLO DIETZ MD [facility] 4TH L HUMERUS FRACTURE;L PERIPROSTHETIC HIP FRACTURE [id number] 12/17/2016 14:45:00 12/17/2016 23:59:59 CLS Preadmit ALEXIS JACKSON DO [facility] RAD SCREEN [id number] 11/08/2016 15:58:00 11/10/2016 00:01:00 DIS Outpatient YVON AGOSTO MD [facility] ONC [id number] 07/05/2016 14:29:00 09/10/2016 00:01:00 DIS Outpatient RODRI JONES MD [facility] ONC [id number] 06/19/2016 12:59:00 06/19/2016 23:59:59 CLS Outpatient RODRI JONES MD [facility] RAD C34.11 LUNG CA [id number] 06/12/2016 00:13:00 06/12/2016 23:59:59 CLS Preadmit RODRI JONES MD [facility] ONC [id number] 04/10/2016 13:57:00 06/11/2016 00:01:00 DIS Outpatient RODRI JONES MD [facility] ONC [id number] 11/30/2015 12:38:00 11/30/2015 23:59:59 CLS Outpatient ALEXIS JACKSON DO [facility] RAD UPPER LOBE ABNORMALITY [id number] 11/24/2015 13:05:00 11/24/2015 23:59:59 CLS Outpatient ALEXIS JACKSON DO [facility] RAD SCREENING, COUGH [id number] 09/16/2015 08:50:00 09/16/2015 23:59:59 CLS Outpatient ALEXIS JACKSON DO [facility] CARD FORMEN OVALE FOLLOW UP [id number] 06/01/2015 01:28:00 06/01/2015 02:20:00 DIS Emergency YANELIS GROSSMAN MD [facility] ER LEFT EAR BLEEDING [id number] 02/18/2015 14:04:00 02/18/2015 23:59:59 CLS Outpatient ALEXIS JACKSON DO [facility] RAD 3 MONTH FOLLOW UP FOR NODULE [id number] 02/07/2015 10:27:00 02/07/2015 14:50:00 DIS Outpatient PADMA SEBASTIAN MD [facility] SDC CA LESION LIP [id number] 02/01/2015 08:59:00 02/01/2015 23:59:59 CLS Outpatient PADMA SEBASTIAN MD [facility] PREOP LOWER LIP LESION [id number] 10/19/2014 14:37:00 10/19/2014 23:59:59 CLS Outpatient ALEXIS JACKSON DO [facility] RAD SCREENING,CA SCREEN [id number] 06/09/2014 08:52:00 06/09/2014 23:59:59 CLS Outpatient SASKIA RUTH MD [facility] CARD ASD,CVA,KIM,HLP,HTN, [id number] 09/17/2013 14:25:00 09/17/2013 23:59:59 CLS Outpatient ALEXIS JACKSON DO [facility] RAD SCREENING [id number] 06/24/2013 14:03:00 06/24/2013 23:59:59 CLS Outpatient SASKIA RUTH MD [facility] CARD MVP,HLP,HTN,CVA [id number] 05/21/2013 13:00:00 05/22/2013 07:34:00 DIS Outpatient HIEU MCCARTY MD [facility] REHAB LUMBAR RADICULOPATHY [id number] 01/20/2013 09:05:00 01/20/2013 23:59:59 CLS Outpatient HIEU MCCARTY MD [facility] RAD LUMBAR RADICULOPATHY [id number] 09/04/2012 14:38:00 09/04/2012 23:59:59 CLS Outpatient ALEXIS JACKSON DO [facility] RAD SCREENING [id number] 07/08/2012 06:08:00 07/08/2012 12:30:00 DIS Outpatient SARMAD BONE MD [facility] LEFT LUMBAR HERNIA [id number] 07/03/2012 09:01:00 07/03/2012 12:30:00 DIS Outpatient SARMAD BONE MD [facility] LEFT LUMBAR HERNIA [id number] 07/01/2012 12:10:00 07/01/2012 23:59:59 CLS Outpatient SARMAD BONE MD [facility] PREOP LEFT LUMBAR HERNIA [id number] 06/30/2012 06:50:00 06/30/2012 10:00:00 DIS Outpatient SARMAD BONE MD [facility] SCREENING,FAMILY HX [id number] 06/25/2012 07:28:00 06/25/2012 23:59:59 CLS Outpatient SARMAD BONE MD [facility] PREOP SCREENING/FAMILY HISTORY [id number] 04/16/2017 03:09:00 Document Registration [id number] 06/01/2015 02:23:00 Document Registration [id number] 05/29/2012 11:51:00 Document Registration [id number] 03/27/2012 13:00:00 Document Registration [id number] 08/27/2011 09:21:00 Document Registration [id number] 03/20/2011 11:33:00 Document Registration [id number] 02/19/2011 14:09:00 Document Registration [id number] 07/31/2010 13:35:00 Document Registration [id number] 07/11/2010 11:32:00 Document Registration [id number] 04/11/2010 12:27:00 Document Registration [id number] 01/03/2010 13:40:00 Document Registration [id number] 11/18/2008 08:11:00 Document Registration [id number] 04/15/2008 18:10:00 Document Registration [id number] 04/15/2008 12:27:00 Document Registration [id number] 03/29/2008 12:43:00 Document Registration [id number] 11/17/2007 12:27:00 Document Registration [id number] 10/31/2007 08:56:00 Document Registration [id number] 04/14/2007 12:19:00 Document Registration [id number] 11/14/2006 08:55:00 Document Registration [id number] 10/25/2006 10:59:00 Document Registration [id number] 10/29/2005 13:28:00 Document Registration [id number] 10/19/2014 14:40:19 ACT Document Registration
[2017-06-20 17:00] VITALS: BP 146/84
[2017-06-20] MEDS ORDERED: DEXAMETHASONE 4 MG TAB (DECADRON) PO SCH ×2 (17:00)
--- NOTE | 2017-06-20 17:39 | PM&R Post Admission Assessment ---
Post Admission Physician Asses Date seen by provider: June 20, 2017 Time seen by provider: 17:00 Admisison Dx: (1) Brain tumor The preadmission screen agrees with the post admission assessment that the patient is a good candidate for inpatient rehabilitation. The patient will have a comprehensive program of inpatient rehabilitation with a goal of maximizing level of functional independence prior to discharge home with family and HHC. The patient will have PT/OT ninety minutes per day, each discipline, five days a week ro 2 weeks for gait, strengthening, conditioning, balance, ADLs, any patient/family/caregiver training as necessary. Speech therapy to do cognitive sppech and swallow assessment and treat as indicated 5 days a week for 2 weeks for 30-45 min per day. Rehabilitation nursing to assist with bowel, bladder, skin, wound care, medication administration, pain management. Dust Collector to assist with discharge planning, community reentry. SCD's for DVT prophylaxis. She appears to be well motivated to participate in three hours of therapy a day. She should be able to tolerate three hours of therapy a day from a medical and surgical standpoint. She should benefit from the three hours of therapy a day. She has a reasonable discharge plan, reasonable discharge rehabilitation goals and a supportive family. She has various comorbidities that need to be closely monitored with medications and treatments adjusted on a daily basis as needed. 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 Risks for this patient include: 1. Fall 2. Fracture 3. DVT 4. Pulmonary embolism 5. Wound infection 6. Skin breakdown 7. Contractures 8. Poorly controlled pain 9. Urinary retention 10. UTI 11. Respiratory infection 12. Aspiration 13. Post-op seizure 14. Poorly controlled HTN 15. recurrent stroke Estimated Length of Stay: 18 days Prognosis: Rehab prognosis appears good for goal of discharge home with family and HHC modified independent to supervision for ADLs and mobility skills. General: Alert, Cooperative, No Acute Distress, Other (Able to follw simple commands but doesnt remember Month or year) HEENT: Atraumatic, PERRLA, EOMI, Mucous Memb Moist/[place], Other (Left frontal crani site incision healing well with liz in place no drainage noted) Neck: Supple, No JVD Lungs: Clear to Auscultation Heart: Regular Rate Abdomen: Normal Bowel Sounds, Soft, No Tenderness Extremities: No Edema Neuro: Other (cognitive deficit as per above Mild rt sided weakness) REBEKAH GRECO MD June 20, 2017 17:39
--- NOTE | 2017-06-20 18:40 | HISTORY AND PHYSICAL ---
DATE OF SERVICE: ADMISSION HISTORY AND PHYSICAL CHIEF COMPLAINT: Difficulty with walking. HISTORY OF PRESENT ILLNESS: The patient is a 77-year-old female who had been living alone in home in [place], [place] with a history of prior stroke, falls as well as a hip fracture with repair at this rehab unit last year who was modified independent with a cane, who developed problems with communication, speech and right-sided weakness. She was assessed in the ED at [facility]. Imaging studies revealed a left frontal tumor. She was transferred to [facility] on 06/13/2017 and underwent craniotomy for left frontal tumor resection with navigation left on 06/17/2017. She is left with deficits in her ADLs and mobility skills and is referred to inpatient rehabilitation unit [facility] so as to be closer to home. She is on Keppra for seizure prophylaxis and Decadron taper as cerebral edema decreases. Currently, she requires assistance for ADLs and mobility skills. She does not remember the month or year, but is able to follow simple commands.The patient is Min assist for transfers and gait.She is set up for eating and grooming Min assist for Upper body dressing and mod assist for lower body dressing. PAST MEDICAL HISTORY: Falls, tobaccoism, lung cancer, stroke, malnutrition, hypertension, GERD, hypothyroidism. PAST SURGICAL HISTORY: Repair of a periprosthetic hip fracture. ALLERGIES: SULFA, VALSARTAN, PROCHLORPERAZINE. FAMILY HISTORY: Noncontributory. SOCIAL HISTORY: She has a supportive daughter that lives nearby who presents to unit with her. She is a and retired. History of tobaccoism. REVIEW OF SYSTEMS: Ten-point review of systems. She denies headache or double vision at this time. She reports right-sided weakness, difficulty with memory and balance. MEDICATIONS: Decadron 4 mg p.o. q. 8 hours then taper to 4 days, heparin 5000 units subQ q. 8 hours, hydrochlorothiazide 25 mg p.o. daily, lisinopril 20 mg p.o. daily, temazepam 7.5 mg p.o. at bedtime p.r.n., Keppra 500 mg p.o. b.i.d., Senokot-S 1 tablet p.o. b.i.d., Tylenol 650 mg p.o. q. 4 hours p.r.n. pain. PHYSICAL EXAMINATION: GENERAL: Significant for a female appearing her stated age, sitting in wheelchair with somewhat flat affect, in no acute distress. VITAL SIGNS: Within normal limits. She is afebrile. HEENT: Vision, speech, hearing appears functional. She has a craniotomy incision site with liz in place. Left temporal region healing well, no drainage noted. No oral lesion is noted. NECK: Supple without mass. HEART: Regular rhythm. CHEST: Clear. ABDOMEN: Soft, nontender, bowel sounds present. EXTREMITIES: No limb edema. No calf tenderness. MUSCULOSKELETAL: The patient has functional active range of motion in all 4 extremities. She has a mild right hemiparesis. NEUROLOGIC: Sensation is grossly intact to touch. Cognition mildly impaired as per above.Hip flexion 3/5 Knee flex 4/5 Knee ext 4+/5 Dorsiflexion 4+/5 IMPRESSION: 1. Ambulatory dysfunction secondary to metastatic lung cancer to the brain status post craniotomy and excision of left frontal tumor [facility]. 2. Seizure prophylaxis, on Keppra. 3. Deep vein thrombosis prophylaxis, on heparin subq. 4. Hypertension, controlled with medication. 5. History of falls with a hip fracture, status post repair. 6. Decadron taper. PLAN: The patient will have a comprehensive program of inpatient rehabilitation with goal of maximizing level of functional independence prior to discharge home with home health care and daughter assisting as needed. The patient will be seen by PT, OT 90 minutes per day each discipline, 5 days a week for 14 days. Please see post-admission physician evaluation, a separate document for details of plan of care. Speech therapy to assess speech, swallow and cognitive status and treat as indicated 3 to 5 days a week for 30 to 45 minutes per day for 14 days with goal improving in all domains listed above. Rehabilitation nursing assist with bowel, bladder, skin care, medication administration, pain management, reorientation as needed. career services coordinator to assist with discharge planning, community reentry. Continue current medications. Consult hospitalist service for medical followup as well as who is following her for her medical oncology issues. ESTIMATED LENGTH OF STAY: 18 days. PROGNOSIS: Rehab prognosis appears good for goal of enhancing level of functional independence prior to discharge home with her daughter and home health care. DIET: Regular. CODE STATUS: Full code. PRIMARY CARE PHYSICIAN: Jeremy Graf DO Job ID: [id number] DocumentID: [id number] Dictated Date: 06/20/2017 17:33:18 Coat Room Attendant Date: 06/20/2017 18:39:55 Dictated By: REBEKAH GRECO MD MTDD
[2017-06-20] MEDS: LEVETIRACETAM 500 MG (KEPPRA) TAB PO SCH (20:10)
[2017-06-20] MEDS: DOCUSATE SODIUM 100 MG (COLACE) CAP PO SCH (20:10)
[2017-06-20] MEDS: SENNA W/DOCUSATE (SENOKOT S) TABLET PO SCH (20:10)
[2017-06-21] MEDS: DEXAMETHASONE 4 MG TAB (DECADRON) PO SCH ×3 (04:40→20:47)
[2017-06-21 08:10] VITALS: BP 121/87
--- NOTE | 2017-06-21 08:58 | Physical Therapy Evaluation ---
PT Evaluation-General Medical Diagnosis Admission Date June 20, 2017 at 16:40 Medical Diagnosis: debility post craniotomy/lung ca with mets to the brain Onset Date: June 13, 2017 Therapy Diagnosis Therapy Diagnosis: impaired mobility, strength, endurance Height/Weight Height (Feet): 5 Height (Inches): 3.00 Weight (Pounds): 122 Weight (Ounces): 0.7 Precautions Precautions/Isolations: Standard Precautions Referral Physician: Hardeep Reason for Referral: Evaluation/Treatment Medical History Pertinent Medical History: Arthritis, CVA, Fractures, GERD, HTN, Hypothroidism Additional Medical History PAST MEDICAL HISTORY: Falls, tobaccoism, lung cancer, stroke, malnutrition, hypertension, GERD, hypothyroidism. PAST SURGICAL HISTORY: Repair of a periprosthetic hip fracture. Reviewed History: Yes Social History Home: Single Level Current Living Status: Alone Entry Into Home: Stairs With Railing PT Steps Into Home: 2 Prior/Core FIM Prior Level of Function Functional [place] Measure 0=Not Assessed/NA 4=Minimal Assistance 1=Total Assistance 5=Supervision or Setup 2=Maximal Assistance 6=Modified [place] 3=Moderate Assistance 7=Complete [place] Bed Mobility: 6 Transfers (B,C,W/C) (FIM): 6 Gait: 6 PT Evaluation-Current Subjective Patient in bed pre tx, agrees to PT, no complaints of pain. Unsure of how accurate her answers on social history are. Pt/Family Goals to be independent at home Objective Patient Orientation: Person, Situation ROM/Strength ROM Lower Extremities WNL Strenght Lower Extremities left lower extremity (hip flexion 3/5, knee flexion 4/5, knee extension 4+/5, dorsiflexion 4+/5), right lower extremity (hip flexion 3/5, knee flexion 4/5, knee extension 4+/5, dorsiflexion 4+/5) Neuromuscular (Tone, Coordination, Reflexes) Patient seems to have normal peripheral vision and tracking, no complaints about recent changes in her hearing. Sensory Vision: Functional Hearing: Functional Sensation Right Lower Extremit: Intact Sensation Left Lower Extremity: Intact Transfers Functional [place] Measure 0=Not Assessed/NA 4=Minimal Assistance 1=Total Assistance 5=Supervision or Setup 2=Maximal Assistance 6=Modified [place] 3=Moderate Assistance 7=Complete IndependenceIRFPAI Quality Coding Scale 6 Independent with activity with or without an assistive device 5 Patient requires set up or clean up by helper. Patient completes activity by themselves 4 Supervision or touching assist (CGA). [place] provide cues , steadying assist 3 The helper provides less than half the effort to complete the activity 2 The helper provides more than half the effort to complete the activity 1 Dependent. The helper does all the effort to complete an activity 7 Patient refused to complete or attempt activity 9 The patient did not perform the activity before the current illness or injury 88 Not attempted due to Medical conditions or safety concerns Transfers (B, C, W/C) (FIM): 4 Scootin Rollin Roll Left to Right (QC): 4 Supine to/from Sit: 5 Sit to/from Stand: 4 bed t/f WC(FIM only if WC use): 4 Sit to Lying (QC): 4 Lying to Sitting/Side of Bed(Q: 4 Sit to Stand (QC): 4 Chair/Mgj-ag-Qenky Xfer(QC): 4 Car Transfer (QC): 4 Patient performs bed mobility and supine to sit with SBA. Sit to stand and stand pivot transfers with CGA. Car transfer SBA. Gait Does the Patient Walk?: Yes Mode of Locomotion: Walk Anticipated Mode of Locomotion: Walk Gait (FIM): 2 Walk 10 feet (QC): 4 Walk 50 ft with 2 Turns(QC): 4 Walk 150 ft (QC): 88 Walking 10ft/uneven surface-QC: 4 Distance: 120'x2 Gait Level of Assist: 4 Gait Persons Needed: 1 Gait Assistive Device: FWW Comments/Gait Description Patient ambulated 120' with a rolling walker with CGA, including 50' with at least 2 turns of 90 degrees and 10' over an uneven surface. Patient ambulates slowly and fatigues easily. She has decreased hip flexion and weight shifts excessively when stepping due to hip weakness. Stairs Stairs (FIM): 1 #of Steps: 1 Level of Assist: 4 1 Step (curb) (QC): 4 4 Steps (QC): 88 12 Steps (QC): 88 Patient can go up and down 1 step using a rolling walker with CGA, cues for foot placement. Balance Sitting Static: Normal Sitting Dynamic: Normal Standing Static: Good Standing Dynamic: Good Picking up an Object (QC): 88 Treatment parallel bars exercises x15 (heel raises, mini-squats), LAQ alternating for 5 min Assessment/Needs Patient has impaired mobility, strength, endurance. She especially has weak hip musculature and quads. Rehab Potential: Fair PT Short Term Goals Short Term Goals Time Frame: June 28, 2017 Transfers (B,C,W/C) (FIM): 5 Gait (FIM): 5 Gait Distance Comment: 150' Gait Level of Assist: 5 Gait Assistive Device: FWW PT Lather Apprentice Goals Mcfp Goals PT Lather Apprentice Goals Time Frame: Jul 12, 2017 Transfers (B,C,W/C) (FIM): 6 Sit to Lying (QC): 6 Lying-Sitting on Side/Bed(QC): 6 Sit to Stand (QC): 6 Rollin Roll Left to Right (QC): 6 Chair/Ezu-rn-Ufpdh Xfer(QC): 6 Car Transfer (QC): 6 Gait (FIM): 6 Distance: 200' Walk 10 feet (QC): 6 Walk 10ft-Uneven Surface(QC): 6 Walk 50ft with 2 Turns (QC): 6 Walk 150 ft (QC): 6 Gait Assistive Device: FWW Stairs (FIM): 2 # of Steps: 4 1 Step (curb) (QC): 4 4 Steps (QC): 4 Stairs Level Of Assist: 5 Picking up an Object (QC): 5 PT Plan Problem List Problem List: Activity Tolerance, Functional Strength, Safety, Balance, Gait, Transfer, Bed Mobility Treatment/Plan Treatment Plan: Continue Plan of Care Treatment Plan: Bed Mobility, Education, Functional Activity Tacho, Functional Strength, Group Therapy, Gait, Safety, Therapeutic Exercise, Transfers Treatment Duration: Jul 12, 2017 Frequency: At least 5 of 7 days/Wk (IRF) Estimated Hrs Per Day: 1.5 hours per day Patient and/or Family Agrees t: Yes Safety Risks/Education Patient Education: Gait Training, Transfer Techniques, Steps, Correct Positioning, Safety Issues Teaching Recipient: Patient Teaching Methods: Demonstration, Discussion Response to Teaching: Reinforcement Needed Discharge Recommendations Plan Patient will perform bed mobility and transfer training, balance and endurance training, functional strengthening, stair training, gait training, and education , to improve functional mobility and independence at home. Therapy D/C Recommendations: Home w/ Family Support Time/GCodes Time In: 0800 Time Out: 0900 Total Billed Treatment Time: 60 Total Billed Treatment 1 visit EVM 30' GT 15' EX 15' NIGHAT LANZA PT June 21, 2017 08:58
[2017-06-21] MEDS: HYDROCHLOROTHIAZIDE 25 MG (HCTZ) TAB PO SCH (09:25)
[2017-06-21] MEDS: lisINopril 20 MG (PRINIVIL) TABLET PO SCH (09:25)
[2017-06-21] MEDS: LEVETIRACETAM 500 MG (KEPPRA) TAB PO SCH ×2 (09:25→20:47)
[2017-06-21] MEDS: SENNA W/DOCUSATE (SENOKOT S) TABLET PO SCH ×2 (09:26→20:47)
[2017-06-21] MEDS: DOCUSATE SODIUM 100 MG (COLACE) CAP PO SCH ×2 (09:26→20:47)
--- NOTE | 2017-06-21 11:19 | Consultation-Hospitalist ---
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 She had presented on 06/07/17 due to refractory nausea and vomiting found to have a brain mass and consistent with lung cancer metastases. She was transferred at the [facility] underwent craniotomy with tumor excision and currently is without complaints in the inpatient rehabilitation unit. I review prior records imaging scans and meds and labs. Her family is at the bedside and denies any significant concerns at this current time. Source: family, RN/MD Exam Limitations: clinical condition Date Seen 06/21/17 Attending Physician Johnie Meier MD PCP Jeremy Graf DO Referring Physician Date of Admission June 20, 2017 at 16:40 Home Medications & Allergies Home Medications Reviewed patient Home Medication Reconciliation performed by pharmacy medication reconciliations husbandry technician and/or nursing. Patients Allergies have been reviewed. Allergies Allergies Coded Allergies valsartan (Verified Allergy, Intermediate, HIVES, 02/01/15) Sulfa (Sulfonamide Antibiotics) (Verified Allergy, Unknown, 04/15/08) prochlorperazine (Verified Allergy, Unknown, 04/15/08) Past Sgwbrdj-Hpwcsf-Jemnmy Hx Past Med/Social Hx: Reviewed Nursing Past Med/Soc Hx, Reviewed and Corrections made Patient Social History Marrital Status: single Employed/Student: retired (RN in ER) Alcohol Use: Denies Use Recreational Drug Use: No Smoking Status: Former Smoker Former Smoker, Quit: June 20, 2009 Type Used: Cigarettes 2nd Hand Smoke Exposure: No Physical Abuse Screen: No Sexual Abuse: No Recent Foreign Travel: No Contact w/other who traveled: No Recent Hopitalizations: No Recent Infectious Disease Expo: No Immunizations Up To Date Tetanus Booster (TDap): Unknown Pediatric: Yes Date of Pneumonia Vaccine: July 01, 2015 Date of Influenza Vaccine: Jan 18, 2017 Seasonal Allergies Seasonal Allergies: No Past Medical History Surgeries: Brain Shunt, Joint Replacement, Lobectomy, Orthopedic Respiratory: COPD Currently Using CPAP: No Currently Using BIPAP: No Cardiac: Hypertension Neurological: Stroke : No Reproductive: No Sexually Transmitted Disease: No HIV/AIDS: No Gastrointestinal: Gastroesophageal Reflux Musculoskeletal: Degenerate Disk Disease, Arthritis, Chronic Back Pain, Fractures Endocrine: Hypothyroidsim Loss of Vision: Denies Hearing Impairment: Denies Cancer: Brain, Lung, Skin Did You Recieve Any Treatments: Yes What Type of Treatment Did You: Chemotherapy, Surgical Intervention History of Blood Disorders: Yes (FORM OF ANEMIA) Adverse Reaction to Blood Johnson: No (HAS HAD TRANSFUSION WITHOUT REACTION) Family History Patient reports no known family medical history. Cancer, Hypertension Review of Systems Constitutional: see HPI, weakness EENTM: no symptoms reported Respiratory: no symptoms reported Cardiovascular: no symptoms reported Gastrointestinal: no symptoms reported Genitourinary: no symptoms reported Musculoskeletal: no symptoms reported Skin: no symptoms reported Psychiatric/Neurological: Depressed All Other Systems Reviewed Negative Unless Noted: Yes Physical Exam Physical Exam Vital Signs Vital Signs - First Documented 06/20/17 06/20/17 17:00 18:43 Temp 98.0 Pulse 80 Resp 16 B/P (MAP) 146/84 (104) Pulse Ox 98 O2 Delivery Room Air Capillary Refill : General Appearance: No Apparent Distress, WD/WN, Chronically ill Eyes: Bilateral Eye Normal Inspection, Bilateral Eye PERRL HEENT: PERRL/EOMI, Normal ENT Inspection, Pharynx Normal Neck: Full Range of Motion, Normal Inspection, Non Tender, Supple, Carotid Bruit Respiratory: Chest Non Tender, Lungs Clear, Normal Breath Sounds, No Accessory Muscle Use, No Respiratory Distress Cardiovascular: Regular Rate, Rhythm, No Edema, No Gallop, No JVD, No Murmur, Normal Peripheral Pulses Gastrointestinal: Normal Bowel Sounds, No Organomegaly, No Pulsatile Mass, Non Tender, Soft Back: Normal Inspection, No CVA Tenderness, No Vertebral Tenderness Extremity: Normal Capillary Refill, Normal Inspection, Normal Range of Motion, Non Tender, No Calf Tenderness, No Pedal Edema Neurologic/Psychiatric: Alert, No Motor/Sensory Deficits, Normal Mood/Affect, Disoriented Skin: Normal Color, Warm/Dry, Other (left craniotomy suture line) Lymphatic: No Adenopathy Results Results/Procedures Labs Patient resulted labs reviewed. Assessment/Plan Assessment and Plan Assess & Plan/Chief Complaint Assessment: Brain tumor due to lung cancer mets s/p excision Plan: PT/OT Pain control DVT Px Diagnosis/Problems Diagnosis/Problems (1) Brain tumor Status: Chronic (2) History of lung cancer Status: Chronic (3) Essential (primary) hypertension Status: Chronic (4) Altered mental status Status: Chronic Qualifiers: Altered mental status type: disorientation Qualified Codes: R41.0 - Disorientation, unspecified Clinical Quality Measures DVT/VTE Risk/Contraindication: Risk Factor Score Per Nursin RFS Level Per Nursing on Admit: 4+=Very High GERDA ESPINO DO June 21, 2017 11:19
--- NOTE | 2017-06-21 12:00 | Occupational Therapy Eval ---
OT Evaluation-General/PLF Medical Diagnosis Admission Date June 20, 2017 at 16:40 Medical Diagnosis: debility post craniotomy/lung ca with mets to the brain Onset Date: June 13, 2017 Therapy Diagnosis Therapy Diagnosis: decreased self care skills Height/Weight Height (Feet): 5 Height (Inches): 3.00 Weight (Pounds): 122 Weight (Ounces): 0.7 Precautions Precautions/Isolations: Standard Precautions Safety Interventions: Bed Exit Alarm Referral Physician: Hardeep Medical History Pertinent Medical History: Arthritis, CVA, Fractures, GERD, HTN, Hypothroidism Additional Medical History lung cancer s/p lobectomy, hip fracture Reviewed History: Yes Social History Home: Single Level Current Living Status: Alone Entry Into Home: Stairs With Railing Steps Into Home: 2 ADL-Prior Level of Function ADL PLOF Comments Pt reports being mostly independent prior to hospitalization. Daughter reports family has been assisting with meals as needed. Pt has been falling at home. DME/Equipment: Shower, Tub/Shower OT Current Status Subjective Pt sitting in chair, agrees to therapy. Pt has no c/o pain. Mental Status/Objective Patient Orientation: Person, Situation Current Hearing Aids: No Dentures/Partials: No Hand Dominance: Right Upper Extremity ROM Grossly WFL Upper Extremity Coordination Intact Upper Extremity Sensation Intact per pt report ADL-Treatment ADL-Current Pt completed sponge bath while seated in chair. Upper body bathing completed with SBA. Pt able to wash bilateral LE. Stood with CGA to wash buttocks. Don pullover shirt with SBA. Pt donned underwear and pants with CGA for standing balance during pant hike. Doffs/dons socks with SBA. Gait to restroom with FWW, min assist for safety. Pt demonstrated ability to perform toilet transfer with minimal assistance to stand from toilet. Did not need to complete toileting at this time. Pt stood at sink to complete grooming tasks. Pt brushed teeth and combed hair with SBA. Pt returned to chair with CGA. Pt reports fatigue after session. Sitting in chair with needs met and family present. Functional [place] Measure 0=Not Assessed/NA 4=Minimal Assistance 1=Total Assistance 5=Supervision or Setup 2=Maximal Assistance 6=Modified [place] 3=Moderate Assistance 7=Complete IndependenceIRFPAI Quality Coding Scale 6 Independent with activity with or without an assistive device 5 Patient requires set up or clean up by helper. Patient completes activity by themselves 4 Supervision or touching assist (CGA). [place] provide cues , steadying assist 3 The helper provides less than half the effort to complete the activity 2 The helper provides more than half the effort to complete the activity 1 Dependent. The helper does all the effort to complete an activity 7 Patient refused to complete or attempt activity 9 The patient did not perform the activity before the current illness or injury 88 Not attempted due to Medical conditions or safety concerns Grooming (FIM): 5 Oral Hygiene (QC): 4 Bathing (FIM): 4 Shower/Bathe Self (QC): 3 Upper Body Dressing (FIM): 5 Upper Body Dressing (QC): 4 Lower Body Dressing (FIM): 4 Lower Body Dressing (QC): 3 On/Off Footwear (QC): 5 Toilet/Commode Transfer (FIM): 4 Toilet Transfer (QC): 4 Education OT Patient Education: Rehab process Teaching Recipient: Patient Teaching Methods: Discussion Response to Teaching: Reinforcement Needed OT Short Term Goals Short Term Goals Time Frame: June 28, 2017 Lower Body Dressing(FIM): 5 Toileting(FIM): 5 Toilet/Commode Transfer(FIM): 5 Additional Short Term Goals: 1-Demonstrate ADL Tasks, 2-Verbalize Understanding , 3-ImproveStrength/Tacho 1=Demonstrate adherence to instructed precautions during ADL tasks. 2=Patient will verbalize/demonstrate understanding of assistive devices/ modifications for ADL. 3=Patient will improve strength/tolerance for activity to enable patient to perform ADL's. OT Group Home Goals Group Home Goals Time Frame: Jul 12, 2017 Eating (FIM): 6 Eating (QC): 6 Groomin Oral Hygiene (QC): 6 Bathing(FIM): 5 Shower/Bathe Self (QC): 5 Upper Body Dressing(FIM): 6 Upper Body Dressing (QC): 6 Lower Body Dressing(FIM): 6 Lower Body Dressing (QC): 6 On/Off Footwear (QC): 6 Toileting(FIM): 6 Toileting Hygiene (QC): 6 Toilet/Commode Transfer(FIM): 6 Toilet/Commode Transfer (QC): 6 Shower Transfer(FIM): 5 Additional Goals: 1-Demonstrate ADL Tasks, 2-Verbalize Understanding, 3- ImproveStrength/Tacho 1=Demonstrate adherence to instructed precautions during ADL tasks. 2=Patient will verbalize/demonstrate understanding of assistive devices/ modifications for ADL. 3=Patient will improve strength/tolerance for activity to enable patient to perform ADL's. OT Education/Plan Problem List/Assessment Assessment: Decreased Activ Tolerance, Decreased UE Strength, Dependent Transfers, Impaired Coordination, Impaired Funct Balance, Impaired I ADL's, Impaired Self-Care Skills Pt to benefit from skilled OT intervention for ADL training, transfers, strengthening, and safety education to increase level of independence and allow safe discharge. Discharge Recommendations Plan/Recommendations: Continue POC Treatment Plan/Plan of Care Treatment,Training & Education: Yes Patient would benefit from OT for education, treatment and training to promote independence in ADL's, mobility, safety and/or upper extremity function for ADL' s. Plan of Care: ADL Retraining, Functional Mobility, Group Exercise/Act as Ind, UE Funct Exercise/Act Treatment Duration: Jul 12, 2017 Frequency: At least 5 of 7 days/Wk (IRF) Estimated Hrs Per Day: 1.5 hours per day Agreement: Yes Rehab Potential: Fair Time/GCodes Start Time: 10:00 Stop Time: 11:00 Total Time Billed (hr/min): 60 Billed Treatment Time 1 visit, EVM(15minutes), ADLx3(45minutes) LAMINE JULIEN OT June 21, 2017 12:00
--- NOTE | 2017-06-21 12:11 | PM & R (SOAP) Progress Note ---
Subjective This was a face to face visit with the patient. Date Seen by Provider: June 21, 2017 Time Seen by Provider: 08:05 Subjective/Events-last exam Patient was seen in her room this AM Adjusting well to unit Patient min assist for transfers Appreciate DR smith chand Review of Systems Neurological: Weakness Objective Physician Exam Last Set of Vital Signs Vital Signs Date Time Temp Pulse Resp B/P (MAP) Pulse Ox O2 Delivery O2 Flow Rate FiO2 06/21/17 08:10 66 18 121/87 (98) 98 Room Air 06/20/17 17:00 98.0 Capillary Refill : I&O Intake and Output 06/21/17 00:00 Daily Weight Change Yes, Greater than 33 lbs General: Alert, Cooperative, No Acute Distress, Other (Able to follw simple commands but doesnt remember Month or year) HEENT: Atraumatic, PERRLA, EOMI, Mucous Memb Moist/Linda, Other (Left frontal crani site incision healing well with liz in place no drainage noted) Neck: Supple, No JVD Lungs: Clear to Auscultation Heart: Regular Rate Abdomen: Normal Bowel Sounds, Soft, No Tenderness Extremities: No Edema Neuro: Other (cognitive deficit as per above Mild rt sided weakness) Assessment/Plan Assessment and Plan Metastatic brain CA s/p Frontal crani and excision of tumor Prinmary Lung CA has seen Med Onc here in past Seizure prophylaixs on Keppra DVT Prophylaxis on Hep SUBCUT HTN controlled with meds Decadron taper Plan Continue PT/OT/ST /Wound care F/U with Hospitalist and Medonc appreciate DIMITRIOS Arita note Team Conference next week 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
[2017-06-21] MEDS ORDERED: LISI40TA PO (13:44)
--- NOTE | 2017-06-21 14:47 | Therapy Group Daily Note ---
Therapy Daily Group Note Patient Education Topic Home Safety, Fall Prevention Exercises LE Seated Exercise, UE Exercise Other/Notes Pt was an active participant in OT/PT group. She listened and added to education/discussion on rehab process, home safety and fall prevention. She also participated in UE and LE exercises, with encouragement. She walked to and from group with min assist, FWW and was left up in bed, 4 rails up, all needs met. Start Time: 13:00 Stop Time: 14:15 Total Billed Treatment Time: 75 Total Billed Treatment visit, 75 minutes group YAMILET JERONIMO OT June 21, 2017 14:46
--- NOTE | 2017-06-21 15:03 | ST Cognitive Linguistic Eval ---
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 Johnie Meier Reason for Referral: Evaluation/Treatment Cognitive Evaluation Medical History Pertinent Medical History: Arthritis, CVA, Fractures, GERD, HTN, Hypothroidism Current History The patient recently underwent a left frontal craniotomy for removal of a brain tumor (06/17/17). Reviewed History: Yes Social History Current Living Status: Alone Speech PLF-Current Status Prior Level of Function The patient (and patient's daughter) denied any challenges with speech, language, or cognition prior to the craniotomy. Subjective The patient was seated upright in a recliner upon entrance. The patient greeted the clinician appropriately and was agreeable to participation in the cognitive evaluation. The patient had her daughter and granddaughter present. Per patient's family, they feel the patient has returned to baseline functioning. However, per patient, she stated "I just can't think as good as I did before." Language Eval: Auditory Comprehends Simple Yes/No Ques: Functional Indent/Objects Multiple Garcia: Functional Ident/Pics in Multiple Garcia: Functional Follows 1-Step Commands: Functional Follows Complex Directions: Moderate (Frequent repetition, reduced rate, and direct modeling was required for multi-step complex directions.) Follows General Conversations: Mild (The patient requires intermittent, infrequent redirection to topics.) Language Eval: Verbal Language Completes Spontaneous Greeting: Functional Produces Auto, Serial Info: Functional Imitates Simple Words/Phrases: Functional Word Finding: Moderate Requests Basic Needs: Functional States Basic Personal Info: Mild (The patient required minimal prompts for identification of home address and location.) Expresses Complex Ideas: Mild To note, the patient displays flat affect and limited eye contact throughout conversation. Language Evaluation: Reading Comprehends Single Nouns: Functional Follows Simple Written Direct: Functional Language Evaluation: Writing Copies/Traces: Functional Writes to Simple Dictation: Functional Writes Personal Information: Functional Cognitive Patient Orientation The patient was oriented to city (mild cues), year, and date. The patient was unable to state the month or day of week. Objective Cognitive Domain Attention: Moderate Memory: Moderate Problem Solving: Moderate Objective Impression The patient displays moderate cognitive deficits in the areas of attention, memory, and problem solving. Additionally, the patient displays minimal expressive communication deficits throughout social interactions (flat affect) and word-finding. Communication/Social Cognition Comprehension: 4 (Understands directions on a basic daily needs approximately 75% of the time.) Expression: 4 (Expressive basic daily needs and ideas approximately 75% of the time.) Social Interaction: 5 (Supervision required.) Problem Solvin (Moderate direction, solves routine problems approximately 75% of the time.) Memory: 4 (Recognizes and remembers 75% of the time.) Speech Patient Assess Expression of Ideas/Wants: Exhibits (3) Understanding [place] Content: Usually Understands (3) Brief Interview-Mental Status: Yes Repetition of Three Words: Three (3) Temporal Orientation: Year: Correct (3) Temporal Orientation: Month: No answer (0) Temporal Orientation: Day: Incorrect or No Answer(0) Recall : Wear to say "Sock": No, could not recall (0) Recall : Color: Yes, no cue required (2) Recall : Bed: Yes, no cue required (2) Speech Short Term Goals Short Term Goals Short Term Goals 1. The patient will state simple orientation information with 90% accuracy and mild clinician cueing. 2. The patient will demonstrate 80% accuracy with structured word-finding exercises with mild clinician cueing. 3. The patient will sustain attention to a task for a duration of five minutes with minimal clinician cueing. Time Frame-STG: One Week Speech Filter Press Pumper Goals Custodial Goals 1. The patient will demonstrate improved cognitive linguistic skills for increased function and safety with ADL's in the least restrictive setting. Time Frame: Two Weeks Comprehension: 5 Expression: 5 Social Interaction: 5 Problem Solvin Memory: 4 Speech-Plan Treatment Plan Speech Therapy Treatment Plan: Continue Plan of Care Continue skilled speech pathology to target improved functional problem solving. Treatment Duration: July 05, 2017 Frequency: 3 times per week Estimated Hrs Per Day: .5 hour per day Rehab Potential: Fair Safety Risks/Education Teaching Recipient: Patient Teaching Methods: Discussion Response to Teaching: Verbalize Understanding Education Topics Provided: Results, Recommendations, Plan of Care Time Speech Therapy Time In: 11:00 Speech Therapy Time Out: 11:15 Total Billed Time: 15 Billed Treatment Time 1, MIKE BAEZ June 21, 2017 15:03
[2017-06-21 18:00] VITALS: BP 161/68
[2017-06-22] MEDS: DEXAMETHASONE 4 MG TAB (DECADRON) PO SCH ×3 (04:07→20:52)
[2017-06-22 06:00] VITALS: BP 125/75
[2017-06-22] MEDS: LEVETIRACETAM 500 MG (KEPPRA) TAB PO SCH ×2 (08:10→20:52)
[2017-06-22] MEDS: DOCUSATE SODIUM 100 MG (COLACE) CAP PO SCH ×2 (08:10→21:00)
[2017-06-22] MEDS: SENNA W/DOCUSATE (SENOKOT S) TABLET PO SCH ×2 (08:10→21:00)
[2017-06-22] MEDS: HYDROCHLOROTHIAZIDE 25 MG (HCTZ) TAB PO SCH (08:10)
[2017-06-22] MEDS: lisINopril 20 MG (PRINIVIL) TABLET PO SCH (08:10)
--- NOTE | 2017-06-22 10:14 | Physical Therapy Daily Note ---
PT Daily Note-Current Subjective Pt. in bed upon arrival, states she hasnt eaten and does not have an appetite but will try. Pain Numeric Pain Scale: 0-No Pain Mental Status Patient Orientation: Person, Place, Time, Situation, Listless Transfers Functional [place] Measure 0=Not Assessed/NA 4=Minimal Assistance 1=Total Assistance 5=Supervision or Setup 2=Maximal Assistance 6=Modified [place] 3=Moderate Assistance 7=Complete IndependenceIRFPAI Quality Coding Scale 6 Independent with activity with or without an assistive device 5 Patient requires set up or clean up by helper. Patient completes activity by themselves 4 Supervision or touching assist (CGA). [place] provide cues , steadying assist 3 The helper provides less than half the effort to complete the activity 2 The helper provides more than half the effort to complete the activity 1 Dependent. The helper does all the effort to complete an activity 7 Patient refused to complete or attempt activity 9 The patient did not perform the activity before the current illness or injury 88 Not attempted due to Medical conditions or safety concerns Transfers (B, C, W/C) (FIM): 6 Scootin Rollin Supine to/from Sit: 6 Sit to/from Stand: 6 Gait Training Does the Patient Walk?: Yes Gait (FIM): 5 Distance (FIM): 3=150 ft (200x3) Gait Level of Assist: 5 Gait Persons Needed: 1 Gait Assistive Device: FWW slow, antalgic, flexed at trunk, head down, cues for alignment and directions for where to go Stair Training Stair Training: Handrails/: 2 handrails Stairs (FIM): 2 #of Steps: 4 Stairs: Pattern: Step to Level of Assist: 3 much difficulty descending, difficulty lowering left LE and managing balance, processing etc Exercises Supine Ex: Bridging, Ankle pumps, Quad Set, Glut sets, Heel Slides, Short Arc Quads, Scooting, Straight leg raise, Hip abd/add Supine Reps: 15 NuStep Minutes: 10 NuStep Workload: 3 Treatments pt. required min assist to dress and then applied lotion to legs and arms indep as she c/o she was dry and itchy. pt. toileted SBA. Pt. needed some encouragement to order breakfast but with more encouraging ate 90% of what she ordered. Pt. sat at dining table, needed assist for some buttering of bread and opening difficult bottle Assessment Current Status: Good Progress PT Short Term Goals Short Term Goals Time Frame: June 28, 2017 Gait (FIM): 5 Gait Distance Comment: 150' Gait Level of Assist: 5 Gait Assistive Device: FWW PT Assisted Goals Mine Motor Operator Goals PT Mine Motor Operator Goals Time Frame: Jul 12, 2017 Transfers (B,C,W/C) (FIM): 6 Sit to Lying (QC): 6 Lying-Sitting on Side/Bed(QC): 6 Sit to Stand (QC): 6 Rollin Roll Left to Right (QC): 6 Chair/Myg-wj-Ygjhr Xfer(QC): 6 Car Transfer (QC): 6 Gait (FIM): 6 Distance: 200' Walk 10 feet (QC): 6 Walk 10ft-Uneven Surface(QC): 6 Walk 50ft with 2 Turns (QC): 6 Walk 150 ft (QC): 6 Gait Assistive Device: FWW Stairs (FIM): 2 # of Steps: 4 1 Step (curb) (QC): 4 4 Steps (QC): 4 Stairs Level Of Assist: 5 Picking up an Object (QC): 5 PT Plan Treatment/Plan Treatment Plan: Continue Plan of Care Treatment Plan: Bed Mobility, Education, Functional Activity Tacho, Functional Strength, Group Therapy, Gait, Safety, Therapeutic Exercise, Transfers Treatment Duration: Jul 12, 2017 Frequency: At least 5 of 7 days/Wk (IRF) Estimated Hrs Per Day: 1.5 hours per day Patient and/or Family Agrees t: Yes Safety Risks/Education Patient Education: Gait Training, Transfer Techniques, Steps Teaching Recipient: Patient Teaching Methods: Demonstration, Discussion Response to Teaching: Verbalize Understanding, Return Demonstration, Reinforcement Needed Time/GCodes Time In: 810 Time Out: 940 Total Billed Treatment Time: 90 Total Billed Treatment 1,FA45m,GT20m,EX25m G Codes Necessary: No AYLA MENDEZ GLOVE PAIRER June 22, 2017 10:13
--- NOTE | 2017-06-22 13:07 | Occupational Ther Daily Note ---
OT Current Status-Daily Note Subjective Pt seen in room, up in recliner, drinking coffee. Agreeable to OT. No pain mentioned. Appearance Alert, cooperative, slightly delayed responses Mental Status/Objective Functional [place] Measure 0=Not Assessed/NA 4=Minimal Assistance 1=Total Assistance 5=Supervision or Setup 2=Maximal Assistance 6=Modified [place] 3=Moderate Assistance 7=Complete [place] ADL-Treatment Pt got up from recliner with CGA, cues for hand placement. Walked slowly to bathroom with CGA, FWW, a little wobbly. Toileted SBA on BSC over toilet, using FWW and grab bars, skilled cues for walker positioning. SBA getting on and off BSC, FWW. Pt walked with CGA, FWW to sink and brushed teeth, combed hair with close SBA, FWW. Pt walked 100' to gym with FWW, CGA, help with directions. Once in the gym, she did 12 minutes bilat UE exercise on arm bike set at 15W resistance, taking two brief recovery periods. She also did graded clothes pins with both UEs - following instructions. She was able to complete it without incident with R hand but had a lot of difficulty using L hand (she kept switching to R one). She was able to do nut and bolt board which required both hands to work together. She walked back to her room with CGA, FWW 100' and got into recliner with cues for hand and walker placement. Pt left up in recliner, all needs met. Functional [place] Measure 0=Not Assessed/NA 4=Minimal Assistance 1=Total Assistance 5=Supervision or Setup 2=Maximal Assistance 6=Modified [place] 3=Moderate Assistance 7=Complete IndependenceIRFPAI Quality Coding Scale 6 Independent with activity with or without an assistive device 5 Patient requires set up or clean up by helper. Patient completes activity by themselves 4 Supervision or touching assist (CGA). [place] provide cues , steadying assist 3 The helper provides less than half the effort to complete the activity 2 The helper provides more than half the effort to complete the activity 1 Dependent. The helper does all the effort to complete an activity 7 Patient refused to complete or attempt activity 9 The patient did not perform the activity before the current illness or injury 88 Not attempted due to Medical conditions or safety concerns Eating (FIM): 5 (Per PT note and per nursing. setup) Eating (QC): 5 Grooming (FIM): 5 Toileting (FIM): 5 (SBA, BSC over toilet, FWW) Toileting Hygiene (QC): 4 (SBA) Toilet/Commode Transfer (FIM): 5 Toilet Transfer (QC): 4 (SBA) Education OT Patient Education: Exercise program, Progress toward Goal/Update tx plan, Purpose of tx/functional activities, Safety issues, Transfer techniques Teaching Recipient: Patient Teaching Methods: Demonstration, Discussion Response to Teaching: Verbalize Understanding, Return Demonstration OT Short Term Goals Short Term Goals Time Frame: June 28, 2017 Lower Body Dressing(FIM): 5 Toileting(FIM): 5 Toilet/Commode Transfer(FIM): 5 Additional Short Term Goals: 1-Demonstrate ADL Tasks, 2-Verbalize Understanding , 3-ImproveStrength/Tacho 1=Demonstrate adherence to instructed precautions during ADL tasks. 2=Patient will verbalize/demonstrate understanding of assistive devices/ modifications for ADL. 3=Patient will improve strength/tolerance for activity to enable patient to perform ADL's. OT Usp Goals Metal Reclamation Kettle Tender Goals Time Frame: Jul 12, 2017 Eating (FIM): 6 Eating (QC): 6 Groomin Oral Hygiene (QC): 6 Bathing(FIM): 5 Shower/Bathe Self (QC): 5 Upper Body Dressing(FIM): 6 Upper Body Dressing (QC): 6 Lower Body Dressing(FIM): 6 Lower Body Dressing (QC): 6 On/Off Footwear (QC): 6 Toileting(FIM): 6 Toileting Hygiene (QC): 6 Toilet/Commode Transfer(FIM): 6 Toilet/Commode Transfer (QC): 6 Shower Transfer(FIM): 5 Comprehension(FIM): 5 Expression (FIM): 5 Social Interaction(FIM): 5 Problem Solving(FIM): 4 Memory(FIM): 4 Additional Goals: 1-Demonstrate ADL Tasks, 2-Verbalize Understanding, 3- ImproveStrength/Tacho 1=Demonstrate adherence to instructed precautions during ADL tasks. 2=Patient will verbalize/demonstrate understanding of assistive devices/ modifications for ADL. 3=Patient will improve strength/tolerance for activity to enable patient to perform ADL's. OT Education/Plan Problem List/Assessment Pt to benefit from skilled OT intervention for ADL training, transfers, strengthening, and safety education to increase level of independence and allow safe discharge. Discharge Recommendations Plan/Recommendations: Continue POC Treatment Plan/Plan of Care Patient would benefit from OT for education, treatment and training to promote independence in ADL's, mobility, safety and/or upper extremity function for ADL' s. Plan of Care: ADL Retraining, Functional Mobility, Group Exercise/Act as Ind, UE Funct Exercise/Act Treatment Duration: Jul 12, 2017 Frequency: At least 5 of 7 days/Wk (IRF) Estimated Hrs Per Day: 1.5 hours per day Agreement: Yes Rehab Potential: Fair Time/GCodes Start Time: 09:45 Stop Time: 11:00 Total Time Billed (hr/min): 75 Billed Treatment Time visit, ADL 15 minutes, functional activity 15 minutes, exercise 45 minutes YAMILET JERONIMO OT June 22, 2017 13:07
--- NOTE | 2017-06-22 13:58 | Occupational Ther Daily Note ---
OT Current Status-Daily Note Subjective Pt seen in room, up in bed, agreeable to OT. No pain mentioned. Appearance Alert, cooperative Mental Status/Objective Functional [place] Measure 0=Not Assessed/NA 4=Minimal Assistance 1=Total Assistance 5=Supervision or Setup 2=Maximal Assistance 6=Modified [place] 3=Moderate Assistance 7=Complete [place] ADL-Treatment Functional [place] Measure 0=Not Assessed/NA 4=Minimal Assistance 1=Total Assistance 5=Supervision or Setup 2=Maximal Assistance 6=Modified [place] 3=Moderate Assistance 7=Complete IndependenceIRFPAI Quality Coding Scale 6 Independent with activity with or without an assistive device 5 Patient requires set up or clean up by helper. Patient completes activity by themselves 4 Supervision or touching assist (CGA). [place] provide cues , steadying assist 3 The helper provides less than half the effort to complete the activity 2 The helper provides more than half the effort to complete the activity 1 Dependent. The helper does all the effort to complete an activity 7 Patient refused to complete or attempt activity 9 The patient did not perform the activity before the current illness or injury 88 Not attempted due to Medical conditions or safety concerns Other Treatment Pt sat EOB to do UE exercise with yellow theraband (gentle resistance). She was unable to track repetitions and needed skilled verbal, visual and tactile cues to do the exercises correctly. She had less active movement in her L UE during the exercises and more difficulty following instructions for L arm. With one exercise, she tried moving her legs instead of her arm. Exercises are to strengthen her arms to help with functional activities but also have cognitive components. Pt left sitting up at edge of bed, eating her lunch (with setup) bed alarm on, all needs met. Education OT Patient Education: Purpose of tx/functional activities Teaching Recipient: Patient Teaching Methods: Discussion Response to Teaching: Verbalize Understanding OT Short Term Goals Short Term Goals Time Frame: June 28, 2017 Lower Body Dressing(FIM): 5 Toileting(FIM): 5 Toilet/Commode Transfer(FIM): 5 Additional Short Term Goals: 1-Demonstrate ADL Tasks, 2-Verbalize Understanding , 3-ImproveStrength/Tacho 1=Demonstrate adherence to instructed precautions during ADL tasks. 2=Patient will verbalize/demonstrate understanding of assistive devices/ modifications for ADL. 3=Patient will improve strength/tolerance for activity to enable patient to perform ADL's. OT Child Adolescent Psychiatrist Goals Detention Goals Time Frame: Jul 12, 2017 Eating (FIM): 6 Eating (QC): 6 Groomin Oral Hygiene (QC): 6 Bathing(FIM): 5 Shower/Bathe Self (QC): 5 Upper Body Dressing(FIM): 6 Upper Body Dressing (QC): 6 Lower Body Dressing(FIM): 6 Lower Body Dressing (QC): 6 On/Off Footwear (QC): 6 Toileting(FIM): 6 Toileting Hygiene (QC): 6 Toilet/Commode Transfer(FIM): 6 Toilet/Commode Transfer (QC): 6 Shower Transfer(FIM): 5 Comprehension(FIM): 5 Expression (FIM): 5 Social Interaction(FIM): 5 Problem Solving(FIM): 4 Memory(FIM): 4 Additional Goals: 1-Demonstrate ADL Tasks, 2-Verbalize Understanding, 3- ImproveStrength/Tacho 1=Demonstrate adherence to instructed precautions during ADL tasks. 2=Patient will verbalize/demonstrate understanding of assistive devices/ modifications for ADL. 3=Patient will improve strength/tolerance for activity to enable patient to perform ADL's. OT Education/Plan Problem List/Assessment Pt to benefit from skilled OT intervention for ADL training, transfers, strengthening, and safety education to increase level of independence and allow safe discharge. Discharge Recommendations Plan/Recommendations: Continue POC Treatment Plan/Plan of Care Patient would benefit from OT for education, treatment and training to promote independence in ADL's, mobility, safety and/or upper extremity function for ADL' s. Plan of Care: ADL Retraining, Functional Mobility, Group Exercise/Act as Ind, UE Funct Exercise/Act Treatment Duration: Jul 12, 2017 Frequency: At least 5 of 7 days/Wk (IRF) Estimated Hrs Per Day: 1.5 hours per day Agreement: Yes Rehab Potential: Fair Time/GCodes Start Time: 13:30 Stop Time: 13:45 Total Time Billed (hr/min): 15 Billed Treatment Time visit, 15 minutes exercise YAMILET JERONIMO OT June 22, 2017 13:58
[2017-06-22 15:48] VITALS: BP 124/67
[2017-06-23] MEDS: DEXAMETHASONE 4 MG TAB (DECADRON) PO SCH ×3 (04:44→19:31)
[2017-06-23 05:20] VITALS: BP 135/79
[2017-06-23] MEDS: DOCUSATE SODIUM 100 MG (COLACE) CAP PO SCH ×2 (08:15→20:07)
[2017-06-23] MEDS: lisINopril 20 MG (PRINIVIL) TABLET PO SCH (08:15)
[2017-06-23] MEDS: LEVETIRACETAM 500 MG (KEPPRA) TAB PO SCH ×2 (08:15→20:07)
[2017-06-23] MEDS: SENNA W/DOCUSATE (SENOKOT S) TABLET PO SCH ×2 (08:15→20:07)
[2017-06-23] MEDS: HYDROCHLOROTHIAZIDE 25 MG (HCTZ) TAB PO SCH (08:15)
[2017-06-23 17:48] VITALS: BP 125/76
[2017-06-24] MEDS: DEXAMETHASONE 4 MG TAB (DECADRON) PO SCH ×3 (04:19→19:23)
[2017-06-24 04:34] VITALS: BP 136/82
[2017-06-24] MEDS: lisINopril 20 MG (PRINIVIL) TABLET PO SCH (08:15)
[2017-06-24] MEDS: DOCUSATE SODIUM 100 MG (COLACE) CAP PO SCH ×2 (08:15→20:12)
[2017-06-24] MEDS: SENNA W/DOCUSATE (SENOKOT S) TABLET PO SCH ×2 (08:15→20:12)
[2017-06-24] MEDS: HYDROCHLOROTHIAZIDE 25 MG (HCTZ) TAB PO SCH (08:15)
[2017-06-24] MEDS: LEVETIRACETAM 500 MG (KEPPRA) TAB PO SCH ×2 (08:15→20:12)
--- NOTE | 2017-06-24 10:31 | Occupational Ther Daily Note ---
OT Current Status-Daily Note Subjective Pt alert, sitting in recliner. Pt required encouragement to take shower. Pt agreed to therapy. No c/o pain. Mental Status/Objective Patient Orientation: Person, Place, Time, Situation Functional [place] Measure 0=Not Assessed/NA 4=Minimal Assistance 1=Total Assistance 5=Supervision or Setup 2=Maximal Assistance 6=Modified [place] 3=Moderate Assistance 7=Complete [place] ADL-Treatment Pt ambulated to bathroom using FWW with supervision. Supervision to transfer into shower. Supervision to complete bathing. Supervision for toilet transfer. Mod I for toileting. After setup, pt able to complete donning/ doffing clothing by self. Standing at sink with FWW, pt able to complete own grooming. After therapy, pt lying in bed with call light/phone in reach. All needs met in room. Functional [place] Measure 0=Not Assessed/NA 4=Minimal Assistance 1=Total Assistance 5=Supervision or Setup 2=Maximal Assistance 6=Modified [place] 3=Moderate Assistance 7=Complete IndependenceIRFPAI Quality Coding Scale 6 Independent with activity with or without an assistive device 5 Patient requires set up or clean up by helper. Patient completes activity by themselves 4 Supervision or touching assist (CGA). [place] provide cues , steadying assist 3 The helper provides less than half the effort to complete the activity 2 The helper provides more than half the effort to complete the activity 1 Dependent. The helper does all the effort to complete an activity 7 Patient refused to complete or attempt activity 9 The patient did not perform the activity before the current illness or injury 88 Not attempted due to Medical conditions or safety concerns Grooming (FIM): 5 Oral Hygiene (QC): 4 Bathing (FIM): 5 Shower/Bathe Self (QC): 4 Upper Body (FIM): 5 Upper Body Dressing (QC): 5 Lower Body Dressing (FIM): 5 Lower Body Dressing (QC): 5 On/Off Footwear (QC): 5 Toileting (FIM): 6 Toileting Hygiene (QC): 6 Toilet/Commode Transfer (FIM): 5 Toilet Transfer (QC): 4 Shower Transfer(FIM): 5 OT Short Term Goals Short Term Goals Time Frame: June 28, 2017 Lower Body Dressing(FIM): 5 Toileting(FIM): 5 Toilet/Commode Transfer(FIM): 5 Additional Short Term Goals: 1-Demonstrate ADL Tasks, 2-Verbalize Understanding , 3-ImproveStrength/Tacho 1=Demonstrate adherence to instructed precautions during ADL tasks. 2=Patient will verbalize/demonstrate understanding of assistive devices/ modifications for ADL. 3=Patient will improve strength/tolerance for activity to enable patient to perform ADL's. OT Real Estate Representative Goals Fdc Goals Time Frame: Jul 12, 2017 Eating (FIM): 6 Eating (QC): 6 Groomin Oral Hygiene (QC): 6 Bathing(FIM): 5 Shower/Bathe Self (QC): 5 Upper Body Dressing(FIM): 6 Upper Body Dressing (QC): 6 Lower Body Dressing(FIM): 6 Lower Body Dressing (QC): 6 On/Off Footwear (QC): 6 Toileting(FIM): 6 Toileting Hygiene (QC): 6 Toilet/Commode Transfer(FIM): 6 Toilet/Commode Transfer (QC): 6 Shower Transfer(FIM): 5 Comprehension(FIM): 5 Expression (FIM): 5 Social Interaction(FIM): 5 Problem Solving(FIM): 4 Memory(FIM): 4 Additional Goals: 1-Demonstrate ADL Tasks, 2-Verbalize Understanding, 3- ImproveStrength/Tacho 1=Demonstrate adherence to instructed precautions during ADL tasks. 2=Patient will verbalize/demonstrate understanding of assistive devices/ modifications for ADL. 3=Patient will improve strength/tolerance for activity to enable patient to perform ADL's. OT Education/Plan Problem List/Assessment Pt to benefit from skilled OT intervention for ADL training, transfers, strengthening, and safety education to increase level of independence and allow safe discharge. Discharge Recommendations Plan/Recommendations: Continue POC Treatment Plan/Plan of Care Patient would benefit from OT for education, treatment and training to promote independence in ADL's, mobility, safety and/or upper extremity function for ADL' s. Plan of Care: ADL Retraining, Functional Mobility, Group Exercise/Act as Ind, UE Funct Exercise/Act Treatment Duration: Jul 12, 2017 Frequency: At least 5 of 7 days/Wk (IRF) Estimated Hrs Per Day: 1.5 hours per day Agreement: Yes Rehab Potential: Fair Time/GCodes Start Time: 10:00 Stop Time: 11:00 Total Time Billed (hr/min): 60 Billed Treatment Time 1 visit-ADL 4 (60 min) IRMA BLEDSOE June 24, 2017 10:31
--- NOTE | 2017-06-24 11:06 | Physical Therapy Daily Note ---
PT Daily Note-Current Subjective Pt. in bed, sleepy, very slow moving, not motivated, needs reoriented to task Pain Numeric Pain Scale: 0-No Pain Mental Status somewhat confused, needs guided and reminded through all of Rx Transfers Functional [place] Measure 0=Not Assessed/NA 4=Minimal Assistance 1=Total Assistance 5=Supervision or Setup 2=Maximal Assistance 6=Modified [place] 3=Moderate Assistance 7=Complete IndependenceIRFPAI Quality Coding Scale 6 Independent with activity with or without an assistive device 5 Patient requires set up or clean up by helper. Patient completes activity by themselves 4 Supervision or touching assist (CGA). [place] provide cues , steadying assist 3 The helper provides less than half the effort to complete the activity 2 The helper provides more than half the effort to complete the activity 1 Dependent. The helper does all the effort to complete an activity 7 Patient refused to complete or attempt activity 9 The patient did not perform the activity before the current illness or injury 88 Not attempted due to Medical conditions or safety concerns Transfers (B, C, W/C) (FIM): 5 Scootin Rollin Supine to/from Sit: 5 Sit to/from Stand: 5 Gait Training Does the Patient Walk?: Yes Gait (FIM): 4 Distance (FIM): 3=150 ft (160x2) Gait Level of Assist: 4 Gait Persons Needed: 1 Gait Assistive Device: FWW stops frequently and needs cues to cont. walking Stair Training Stair Training: Handrails/: 2 handrails Stairs (FIM): 2 #of Steps: 4 Stairs: Pattern: Step to Level of Assist: 4 much discussion about sequence Balance Special Test Comments PERALES completed at 51/56 Exercises Supine Ex: Bridging, Ankle pumps, Rolling, Heel Slides, Straight leg raise, Hip abd/add Supine Reps: 15 Assessment Current Status: Good Progress, Fair Progress PT Short Term Goals Short Term Goals Time Frame: June 28, 2017 Gait (FIM): 5 Gait Distance Comment: 150' Gait Level of Assist: 5 Gait Assistive Device: FWW PT Blackjack Dealer Goals Blackjack Dealer Goals PT Blackjack Dealer Goals Time Frame: Jul 12, 2017 Transfers (B,C,W/C) (FIM): 6 Sit to Lying (QC): 6 Lying-Sitting on Side/Bed(QC): 6 Sit to Stand (QC): 6 Rollin Roll Left to Right (QC): 6 Chair/Nuv-rm-Maour Xfer(QC): 6 Car Transfer (QC): 6 Gait (FIM): 6 Distance: 200' Walk 10 feet (QC): 6 Walk 10ft-Uneven Surface(QC): 6 Walk 50ft with 2 Turns (QC): 6 Walk 150 ft (QC): 6 Gait Assistive Device: FWW Stairs (FIM): 2 # of Steps: 4 1 Step (curb) (QC): 4 4 Steps (QC): 4 Stairs Level Of Assist: 5 Picking up an Object (QC): 5 PT Plan Treatment/Plan Treatment Plan: Continue Plan of Care Treatment Plan: Bed Mobility, Education, Functional Activity Tacho, Functional Strength, Group Therapy, Gait, Safety, Therapeutic Exercise, Transfers Treatment Duration: Jul 12, 2017 Frequency: At least 5 of 7 days/Wk (IRF) Estimated Hrs Per Day: 1.5 hours per day Patient and/or Family Agrees t: Yes Safety Risks/Education Patient Education: Gait Training, Transfer Techniques, Steps, Correct Positioning, Disease Process, Safety Issues Teaching Recipient: Patient Teaching Methods: Demonstration, Discussion Response to Teaching: Verbalize Understanding, Return Demonstration, Reinforcement Needed Time/GCodes Time In: 845 Time Out: 930 Total Billed Treatment Time: 45 Total Billed Treatment 1,FA15m,GT15m,EX15m G Codes Necessary: AYLA Sherman PROJECT MANAGER June 24, 2017 11:06
--- NOTE | 2017-06-24 14:02 | Speech Therapy Daily Note ---
Speech Daily Progress Note Subjective Date Seen by Provider: June 24, 2017 Time Seen by Provider: 09:30 The patient was seated upright in recliner, eating breakfast upon entrance. The patient greeted the clinician and was agreeable to participation in the cognitive treatment session. To note, the patient continued discussions in a monotone vocal quality with limited eye contact. Frequent redirection to task and repetition of instructions was required. Objective To further evaluate the patient's cognitive function, The Kameron Cognitive Assessment (MoCA) was provided with the following results: Memory: The patient was able to recall three of five words immediately and zero of five words following a five minute delay. Attention: The patient was unable to repeat five digits forward or three digits in reverse, the patient was unable to identify a specific letter in a string of letters, or complete serial seven subtraction. Language: The patient could repeat single words, however, struggled with longer phrases. The patient was unable to complete word-finding activity or state a similarity between two items. Orientation: The patient was oriented to year, day of the week, place, and city. The patient did not know the date or month. At this time, the patient scored a result of +9/25 correlating to a moderate to severe cognitive impairment. Assessment Assessment Current Status: Poor Progress Treatment Plan Continue Plan of Care Communication Comprehension: 4 (Understands directions on a basic daily needs approximately 75% of the time.) Expression: 4 (Expressive basic daily needs and ideas approximately 75% of the time.) Social Cognition Social Interaction: 5 (Supervision required.) Problem Solvin (Moderate direction, solves routine problems approximately 75% of the time.) Memory: 4 (Recognizes and remembers 75% of the time.) Speech Short Term Goals Short Term Goals Short Term Goals 1. The patient will state simple orientation information with 90% accuracy and mild clinician cueing. 2. The patient will demonstrate 80% accuracy with structured word-finding exercises with mild clinician cueing. 3. The patient will sustain attention to a task for a duration of five minutes with minimal clinician cueing. Time Frame-STG: One Week Speech Custodial Goals Media Marketing Specialist Goals 1. The patient will demonstrate improved cognitive linguistic skills for increased function and safety with ADL's in the least restrictive setting. Time Frame: Two Weeks Comprehension: 5 Expression: 5 Social Interaction: 5 Problem Solvin Memory: 4 Speech-Plan Treatment Plan Speech Therapy Treatment Plan: Continue Plan of Care Continue skilled speech pathology to target functional attention and problem solving. Treatment Duration: July 05, 2017 Frequency: 3 times per week Estimated Hrs Per Day: .5 hour per day Rehab Potential: Fair Safety Risks/Education Teaching Recipient: Patient Teaching Methods: Discussion Response to Teaching: Reinforcement Needed Education Topics Provided: Results, Recommendations Time Speech Therapy Time In: 09:30 Speech Therapy Time Out: 10:00 Total Billed Time: 30 Billed Treatment Time 1JESSEE ELIZABETH ST June 24, 2017 14:02
--- NOTE | 2017-06-24 14:45 | Therapy Group Daily Note ---
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 Pt. minimally participated in discussion/education on home and community safety. She walked to and from group with FWW, CGA very slowly needing cues to continue to walk .Pt. was left up in bed with call charles, all needs met. Start Time: 13:00 Stop Time: 14:20 Total Billed Treatment Time: 80 Total Billed Treatment 1,GRP AYLA MENDEZ NAVAL SCIENCE TEACHER June 24, 2017 14:45
[2017-06-24 18:59] VITALS: BP 118/67
--- NOTE | 2017-06-24 21:34 | Individualized Plan of Care ---
Individualized Plan of Care Rehab Nursing IPOC Order Admission Date June 20, 2017 at 16:40 Current Orders Orders Physical Therapy [place] (06/20/17 16:34) Occupational Therapy Order (06/20/17 16:34) Request Speech/Language Servic (06/20/17 16:34) Acetaminophen Tablet/Caplet (Tylenol T (06/20/17 16:45) Docusate Sodium Capsule (Colace Capsule) (06/20/17 21:00) Senna S Tablet (Senokot S Tablet) (06/20/17 21:00) Levetiracetam Tablet (Keppra Tablet) (06/20/17 21:00) Temazepam Capsule (Restoril Capsule) (06/20/17 16:45) Lisinopril Tablet (Zestril Tablet) (06/21/17 09:00) Hydrochlorothiazide Cap/Tablet (Hctz Cap (06/21/17 09:00) Hydrocodone/Apap 5/325 Tablet (Lortab 5 (06/20/17 16:45) Admission-Acute Rehab Unit (06/20/17 16:34) Heparin Injection (Heparin Injection) (06/20/17 16:00) General/Regular (06/20/17 Dinner) Vital Signs: Routine (Order) 08,16,00 (06/20/17 17:10) Sequential Compression Device 08,20 (06/20/17 17:10) Expander-Inpt Rehab Con (06/20/17 17:10) Rehab Nursing Orders-Ipoc (06/20/17 17:10) Turn And Reposition Q2HR (06/20/17 17:10) Intake & Output 06,14,22 (06/20/17 17:10) Precautions (Aru) (06/20/17 17:10) Weekly Weight (Lbs) WEEK (06/20/17 17:10) Dexamethasone Tablet (Decadron Tablet) (06/20/17 17:00) Pharmacy Communication (Pharmacy Communi (06/20/17 17:15) Dexamethasone Tablet (Decadron Tablet) (06/20/17 17:00) Consult Physician (06/20/17 17:46) Dexamethasone Tablet (Decadron Tablet) (06/21/17 04:00) Patient Visit (06/21/17 ) Speech Sound Lang Comp (06/21/17 ) Automatic Tray (06/21/17 12:08) Patient Visit (06/21/17 ) Pt Eval Moderate Complexity (06/21/17 ) Exercise Therap, Ea 15 Min (06/21/17 ) Gait Training, Ea 15 Min (06/21/17 ) Patient Visit (06/21/17 ) Patient Visit (06/22/17 ) Functional Activities, Ea 15 (06/22/17 ) Gait Training, Ea 15 Min (06/22/17 ) Exercise Therap, Ea 15 Min (06/22/17 ) Patient Visit (06/24/17 ) Treat. Speech/Lang/Voice (06/24/17 ) Patient Visit (06/24/17 ) Functional Activities, Ea 15 (06/24/17 ) Gait Training, Ea 15 Min (06/24/17 ) Exercise Therap, Ea 15 Min (06/24/17 ) Therapeutic, Group (06/24/17 ) Rehab Nursing Orders: Ongoing Assess. of Cognitive Status, Ongoing Assess. of Function Status, Disease Management & Educaiton, DVT Prophylaxis, Fall Prevention, Fluid/Electrolyte/Nutrition Mgmt, Infection Prevention, Medication Management & Education, Management of Skin Intergrity, Nutrition Management, Pain Management, Patient/Family Support Other Nursing Orders: Monitor for OIC and urinary retention PT IPOC Problem List: Activity Tolerance, Functional Strength, Safety, Balance, Gait, Transfer, Bed Mobility Treatment Plan: Continue Plan of Care Bed Mobility, Education, Functional Activity Tacho, Functional Strength, Group Therapy, Gait, Safety, Therapeutic Exercise, Transfers Treatment Duration: Jul 12, 2017 Frequency: At least 5 of 7 days/Wk (IRF) Estimated Hrs Per Day: 1.5 hours per day OT IPOC Problems: Decreased Activ Tolerance, Decreased UE Strength, Dependent Transfers , Impaired Coordination, Impaired Funct Balance, Impaired I ADL's, Impaired Self -Care Skills OT Treatment, Training and Edu: Yes OT Problems Pt to benefit from skilled OT intervention for ADL training, transfers, strengthening, and safety education to increase level of independence and allow safe discharge. Plan of Care: ADL Retraining, Functional Mobility, Group Exercise/Act as Ind, UE Funct Exercise/Act Treatment Duration: Jul 12, 2017 Frequency: At least 5 of 7 days/Wk (IRF) Estimated Hrs Per Day: 1.[address] IPOC Speech Therapy Treatment Plan: Continue Plan of Care Treatment Duration: July 05, 2017 Frequency: 3 times per week Estimated Hrs Per Day: .5 hour per day Expander/Case Mgmt Expander/Case Managemen: Discharge Planning, Patient/Family Counseling Dietitian/Sort Worker Dietitian/Sort Worker to monitor nutritional status and make changes and/or recommendations as needed and work with speech pathology on dietary upgrades as the occur. 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
--- NOTE | 2017-06-24 21:41 | PM & R (SOAP) Progress Note ---
Subjective This was a face to face visit with the patient. Date Seen by Provider: June 24, 2017 Time Seen by Provider: 21:25 Subjective/Events-last exam Patient was seen in her room this evening Resting comfortably in her bed.Patient SBA for transfers Has good Pharmacy Technology Instructor strength bilaterally Appreciate Dr tristan note Objective Physician Exam Last Set of Vital Signs Vital Signs Date Time Temp Pulse Resp B/P (MAP) Pulse Ox O2 Delivery O2 Flow Rate FiO2 06/24/17 09:00 Room Air 06/24/17 04:34 96.3 62 16 136/82 (100) 97 Capillary Refill : I&O Intake and Output 06/24/17 00:00 Intake Total 1220 ml Balance 1220 ml Intake Oral 1220 ml # Voids 5 General: Alert, Cooperative, No Acute Distress, Other (Able to follw simple commands but doesnt remember Month or year) HEENT: Atraumatic, PERRLA, EOMI, Mucous Memb Moist/[place], Other (Left frontal crani site incision healing well with liz in place no drainage noted) Neck: Supple, No JVD Lungs: Clear to Auscultation Heart: Regular Rate Abdomen: Normal Bowel Sounds, Soft, No Tenderness Extremities: No Edema Neuro: Other (cognitive deficit as per above Mild rt sided weakness) Assessment/Plan Assessment and Plan Metastaic Brain CA s/p frontal crani and excision Primary Lung CA Seizure prophylaxis on Keppra DVT Prophylaxis on heparin SUBCUT HTN controlled Plan CONtinue PT/OT TEam Conference 06-26- F/U with Hospitalist and Med onc as per their schedule (1) Brain tumor Status: Chronic Co-Morbidities that are continuing to impact the rehab process: (include details ) REBEKAH GRECO MD June 24, 2017 21:41
[2017-06-25] MEDS: DEXAMETHASONE 4 MG TAB (DECADRON) PO SCH ×2 (04:09→07:55)
[2017-06-25 06:30] VITALS: BP 120/71
[2017-06-25] MEDS: SENNA W/DOCUSATE (SENOKOT S) TABLET PO SCH ×2 (07:55→20:41)
[2017-06-25] MEDS: lisINopril 20 MG (PRINIVIL) TABLET PO SCH (07:55)
[2017-06-25] MEDS: HYDROCHLOROTHIAZIDE 25 MG (HCTZ) TAB PO SCH (07:55)
[2017-06-25] MEDS: DOCUSATE SODIUM 100 MG (COLACE) CAP PO SCH ×2 (07:55→20:41)
[2017-06-25] MEDS: LEVETIRACETAM 500 MG (KEPPRA) TAB PO SCH ×2 (07:55→20:41)
--- NOTE | 2017-06-25 09:31 | Physical Therapy Daily Note ---
PT Daily Note-Current Subjective Patient in bed pre tx, agrees to PT, no complaints of pain. Patient states she needs to use the restroom. Patient ambulated to the restroom and onto the toilet. She was instructed to use the call light when she is done. Patient did not pull the call light and tried to get up by herself. Poor safety awareness and following directions. Appearance Patient in bed post tx with nurse call, phone, tray, all needs met. Bed alarm on. Mental Status Patient Orientation: Person Transfers Functional [place] Measure 0=Not Assessed/NA 4=Minimal Assistance 1=Total Assistance 5=Supervision or Setup 2=Maximal Assistance 6=Modified [place] 3=Moderate Assistance 7=Complete IndependenceIRFPAI Quality Coding Scale 6 Independent with activity with or without an assistive device 5 Patient requires set up or clean up by helper. Patient completes activity by themselves 4 Supervision or touching assist (CGA). [place] provide cues , steadying assist 3 The helper provides less than half the effort to complete the activity 2 The helper provides more than half the effort to complete the activity 1 Dependent. The helper does all the effort to complete an activity 7 Patient refused to complete or attempt activity 9 The patient did not perform the activity before the current illness or injury 88 Not attempted due to Medical conditions or safety concerns Transfers (B, C, W/C) (FIM): 4 Scootin Rollin Supine to/from Sit: 4 Sit to/from Stand: 4 Bed to/from Chair: 4 Min assist for supine to sit. CGA for sit to stand and transfers. Lots of cues for direction. Gait Training Gait (FIM): 4 Distance: 150'x2 Gait Level of Assist: 4 Gait Persons Needed: 1 Gait Assistive Device: FWW Min assist. Patient ambulates with a very wide base and takes two very short steps and then stops for a few seconds and then goes again. She was instructed to modify her ambulation but she would not follow directions. Therapist had to guide her walker and she would take continuous steps better. She needs constant cues for redirection. Exercises NuStep Minutes: 10 NuStep Workload: 3 Treatments bed mobility and transfers, ambulation, functional strengthening Assessment Current Status: Poor Progress Poor safety awareness, distracts easily, poor with following directions. PT Short Term Goals Short Term Goals Time Frame: June 28, 2017 Gait (FIM): 5 Gait Distance Comment: 150' Gait Level of Assist: 5 Gait Assistive Device: FWW PT Solder Cream Maker Goals Solder Cream Maker Goals PT Solder Cream Maker Goals Time Frame: Jul 12, 2017 Transfers (B,C,W/C) (FIM): 6 Sit to Lying (QC): 6 Lying-Sitting on Side/Bed(QC): 6 Sit to Stand (QC): 6 Rollin Roll Left to Right (QC): 6 Chair/Okt-vv-Gljab Xfer(QC): 6 Car Transfer (QC): 6 Gait (FIM): 6 Distance: 200' Walk 10 feet (QC): 6 Walk 10ft-Uneven Surface(QC): 6 Walk 50ft with 2 Turns (QC): 6 Walk 150 ft (QC): 6 Gait Assistive Device: FWW Stairs (FIM): 2 # of Steps: 4 1 Step (curb) (QC): 4 4 Steps (QC): 4 Stairs Level Of Assist: 5 Picking up an Object (QC): 5 PT Plan Problem List Problem List: Activity Tolerance, Functional Strength, Safety, Balance, Gait, Transfer, Bed Mobility Treatment/Plan Treatment Plan: Continue Plan of Care Treatment Plan: Bed Mobility, Education, Functional Activity Tacho, Functional Strength, Group Therapy, Gait, Safety, Therapeutic Exercise, Transfers Treatment Duration: Jul 12, 2017 Frequency: At least 5 of 7 days/Wk (IRF) Estimated Hrs Per Day: 1.5 hours per day Patient and/or Family Agrees t: Yes Safety Risks/Education Patient Education: Gait Training, Transfer Techniques, Correct Positioning, Safety Issues Teaching Recipient: Patient Teaching Methods: Demonstration, Discussion Response to Teaching: Reinforcement Needed Time/GCodes Time In: 0845 Time Out: 929 Total Billed Treatment Time: 45 Total Billed Treatment 1 visit EX 10' GT 35' NIGHAT LANZA PT June 25, 2017 09:31
--- NOTE | 2017-06-25 11:48 | Speech Therapy Daily Note ---
Speech Daily Progress Note Subjective Date Seen by Provider: June 25, 2017 Time Seen by Provider: 11:15 The patient was seated upright in recliner upon entrance. The patient greeted the clinician and was agreeable to participation in the cognitive treatment session. Objective To note, the patient required consistent verbal cues for appropriate alertness and participation. The patient would consistently turn head away from therapist and close eyes. Assessment of Language Related Functional Activities was initiated on this date with the below results. The patient required maximum verbal prompts for limited participation. - Telling Time: The patient displayed 80% accuracy with telling time on an analog clock with mild clinician verbal cueing. - Daily Math Problem Solving: The patient only provided answers to two of ten questions. The remaining questions, the patient would close her eyes or shake her head, "no." Of the two questions the patient answered, she displayed 50% accuracy. Assessment Assessment Current Status: Poor Progress Treatment Plan Continue Plan of Care Communication Comprehension: 4 (Understands directions on a basic daily needs approximately 75% of the time.) Expression: 4 (Expressive basic daily needs and ideas approximately 75% of the time.) Social Cognition Social Interaction: 5 (Supervision required.) Problem Solvin (Moderate direction, solves routine problems approximately 75% of the time.) Memory: 4 (Recognizes and remembers 75% of the time.) Speech Short Term Goals Short Term Goals Short Term Goals 1. The patient will state simple orientation information with 90% accuracy and mild clinician cueing. 2. The patient will demonstrate 80% accuracy with structured word-finding exercises with mild clinician cueing. 3. The patient will sustain attention to a task for a duration of five minutes with minimal clinician cueing. Time Frame-STG: One Week Speech Usp Goals Desulfurizer Machine Goals 1. The patient will demonstrate improved cognitive linguistic skills for increased function and safety with ADL's in the least restrictive setting. Time Frame: Two Weeks Comprehension: 5 Expression: 5 Social Interaction: 5 Problem Solvin Memory: 4 Speech-Plan Treatment Plan Speech Therapy Treatment Plan: Continue Plan of Care Continue skilled speech pathology to target improved cognition. Treatment Duration: July 05, 2017 Frequency: 3 times per week Estimated Hrs Per Day: .5 hour per day Rehab Potential: Fair Safety Risks/Education Teaching Recipient: Patient Teaching Methods: Discussion Response to Teaching: Reinforcement Needed (N) Education Topics Provided: Purpose of Therapy Tasks Time Speech Therapy Time In: 11:15 Speech Therapy Time Out: 11:45 Total Billed Time: 30 Billed Treatment Time 1, MIKE RUIZ June 25, 2017 11:48
--- NOTE | 2017-06-25 12:57 | Occupational Ther Daily Note ---
OT Current Status-Daily Note Subjective Pt in bed, agrees to treatment. Pt has no c/o pain. Pt states she did not sleep well last night and "I just can't wake up this morning." Mental Status/Objective Functional [place] Measure 0=Not Assessed/NA 4=Minimal Assistance 1=Total Assistance 5=Supervision or Setup 2=Maximal Assistance 6=Modified [place] 3=Moderate Assistance 7=Complete [place] ADL-Treatment Pt supine to sit with supervision. Pt showered yesterday, would like sponge bath only today. Pt transferred EOB to chair with close supervision. Sponge bath completed seated in chair. Upper body bathing completed with SBA and verbal cues for sequencing and task completion. Pt washed bilateral lower legs with SBA, stood with CGA to wash buttocks. Don pullover shirt with SBA. Pt donned underwear and pants with close supervision for balance during pant hike. Doff/don socks with set up. Pt moves very slowly today and requires multiple cues for completion of ADL tasks. Pt requires increased time for ADLs and takes occasional rest breaks secondary to fatigue. Gait to restroom with FWW and CGA for balance. Stood at sink to brush teeth with SBA. Functional [place] Measure 0=Not Assessed/NA 4=Minimal Assistance 1=Total Assistance 5=Supervision or Setup 2=Maximal Assistance 6=Modified [place] 3=Moderate Assistance 7=Complete IndependenceIRFPAI Quality Coding Scale 6 Independent with activity with or without an assistive device 5 Patient requires set up or clean up by helper. Patient completes activity by themselves 4 Supervision or touching assist (CGA). [place] provide cues , steadying assist 3 The helper provides less than half the effort to complete the activity 2 The helper provides more than half the effort to complete the activity 1 Dependent. The helper does all the effort to complete an activity 7 Patient refused to complete or attempt activity 9 The patient did not perform the activity before the current illness or injury 88 Not attempted due to Medical conditions or safety concerns Grooming (FIM): 5 Oral Hygiene (QC): 4 Bathing (FIM): 4 Shower/Bathe Self (QC): 4 Upper Body (FIM): 5 Upper Body Dressing (QC): 4 Lower Body Dressing (FIM): 5 Lower Body Dressing (QC): 4 On/Off Footwear (QC): 4 Other Treatment Gait to therapy gym with FWW. Pt has very slow pace and stops frequently, requiring cues to continue with gait. Pt took one seated rest break mcc to gym. Pt completed graded clothespin task to increase clarifier operator helper/pinch strength. Pt requires multiple cues to use left hand for task as pt attempts to use right hand the entire time even when given instructions to use left. Fine motor task with nuts and bolts to increase coordination/manipulation skills. Pt requires increased time to complete activity. Pt returned to room with slow pace. Sit to supine with SBA. Pt resting in bed with needs met and bed alarm on after session. OT Short Term Goals Short Term Goals Time Frame: June 28, 2017 Lower Body Dressing(FIM): 5 Toileting(FIM): 5 Toilet/Commode Transfer(FIM): 5 Additional Short Term Goals: 1-Demonstrate ADL Tasks, 2-Verbalize Understanding , 3-ImproveStrength/Tacho 1=Demonstrate adherence to instructed precautions during ADL tasks. 2=Patient will verbalize/demonstrate understanding of assistive devices/ modifications for ADL. 3=Patient will improve strength/tolerance for activity to enable patient to perform ADL's. OT Overhead Cleaner Goals [facility] Goals Time Frame: Jul 12, 2017 Eating (FIM): 6 Eating (QC): 6 Groomin Oral Hygiene (QC): 6 Bathing(FIM): 5 Shower/Bathe Self (QC): 5 Upper Body Dressing(FIM): 6 Upper Body Dressing (QC): 6 Lower Body Dressing(FIM): 6 Lower Body Dressing (QC): 6 On/Off Footwear (QC): 6 Toileting(FIM): 6 Toileting Hygiene (QC): 6 Toilet/Commode Transfer(FIM): 6 Toilet/Commode Transfer (QC): 6 Shower Transfer(FIM): 5 Comprehension(FIM): 5 Expression (FIM): 5 Social Interaction(FIM): 5 Problem Solving(FIM): 4 Memory(FIM): 4 Additional Goals: 1-Demonstrate ADL Tasks, 2-Verbalize Understanding, 3- ImproveStrength/Tacho 1=Demonstrate adherence to instructed precautions during ADL tasks. 2=Patient will verbalize/demonstrate understanding of assistive devices/ modifications for ADL. 3=Patient will improve strength/tolerance for activity to enable patient to perform ADL's. OT Education/Plan Discharge Recommendations Plan/Recommendations: Continue POC Treatment Plan/Plan of Care Patient would benefit from OT for education, treatment and training to promote independence in ADL's, mobility, safety and/or upper extremity function for ADL' s. Plan of Care: ADL Retraining, Functional Mobility, Group Exercise/Act as Ind, UE Funct Exercise/Act Treatment Duration: Jul 12, 2017 Frequency: At least 5 of 7 days/Wk (IRF) Estimated Hrs Per Day: 1.5 hours per day Agreement: Yes Rehab Potential: Fair Time/GCodes Start Time: 10:00 Stop Time: 11:15 Total Time Billed (hr/min): 75 Billed Treatment Time 1 visit, ADLx4(50minutes), FAx2(25minutes) LAMINE JULIEN OT June 25, 2017 12:57
--- NOTE | 2017-06-25 14:19 | Physical Therapy Daily Note ---
PT Daily Note-Current Subjective Patient in bed pre tx, agrees to PT, no complaints of pain. Patient states she is very tired and is moving and following directions very slowly. Patient states she needs to use the restroom for a BM. Appearance Patient in bed post tx with nurse call, phone, tray, bed alarm on, all needs met. Mental Status Patient Orientation: Person Transfers Functional [place] Measure 0=Not Assessed/NA 4=Minimal Assistance 1=Total Assistance 5=Supervision or Setup 2=Maximal Assistance 6=Modified [place] 3=Moderate Assistance 7=Complete IndependenceIRFPAI Quality Coding Scale 6 Independent with activity with or without an assistive device 5 Patient requires set up or clean up by helper. Patient completes activity by themselves 4 Supervision or touching assist (CGA). [place] provide cues , steadying assist 3 The helper provides less than half the effort to complete the activity 2 The helper provides more than half the effort to complete the activity 1 Dependent. The helper does all the effort to complete an activity 7 Patient refused to complete or attempt activity 9 The patient did not perform the activity before the current illness or injury 88 Not attempted due to Medical conditions or safety concerns Transfers (B, C, W/C) (FIM): 4 Scootin Rollin Supine to/from Sit: 5 Sit to/from Stand: 4 Bed to/from Chair: 4 Gait Training Gait (FIM): 1 Distance: 20'x2 Gait Level of Assist: 4 Gait Persons Needed: 1 Gait Assistive Device: FWW No LOB but very slow ambulation, wide base of support, takes 2 steps and then stops. Treatments bed mobility and transfers, ambulation, patient was toileted for a BM Assessment Current Status: Poor Progress no change in mobility, patient was able to wipe herself and pull her pants down and up without assist PT Short Term Goals Short Term Goals Time Frame: June 28, 2017 Gait (FIM): 5 Gait Distance Comment: 150' Gait Level of Assist: 5 Gait Assistive Device: FWW PT Mcfp Goals Wood Carving Lathe Operator Goals PT Wood Carving Lathe Operator Goals Time Frame: Jul 12, 2017 Transfers (B,C,W/C) (FIM): 6 Sit to Lying (QC): 6 Lying-Sitting on Side/Bed(QC): 6 Sit to Stand (QC): 6 Rollin Roll Left to Right (QC): 6 Chair/Ssl-jw-Bvrcy Xfer(QC): 6 Car Transfer (QC): 6 Gait (FIM): 6 Distance: 200' Walk 10 feet (QC): 6 Walk 10ft-Uneven Surface(QC): 6 Walk 50ft with 2 Turns (QC): 6 Walk 150 ft (QC): 6 Gait Assistive Device: FWW Stairs (FIM): 2 # of Steps: 4 1 Step (curb) (QC): 4 4 Steps (QC): 4 Stairs Level Of Assist: 5 Picking up an Object (QC): 5 PT Plan Problem List Problem List: Activity Tolerance, Functional Strength, Safety, Balance, Gait, Transfer, Bed Mobility, ROM Treatment/Plan Treatment Plan: Continue Plan of Care Treatment Plan: Bed Mobility, Education, Functional Activity Tacho, Functional Strength, Group Therapy, Gait, Safety, Therapeutic Exercise, Transfers Treatment Duration: Jul 12, 2017 Frequency: At least 5 of 7 days/Wk (IRF) Estimated Hrs Per Day: 1.5 hours per day Patient and/or Family Agrees t: Yes Safety Risks/Education Patient Education: Gait Training, Transfer Techniques, Correct Positioning, Safety Issues Teaching Recipient: Patient Teaching Methods: Demonstration, Discussion Response to Teaching: Reinforcement Needed Time/GCodes Time In: 1345 Time Out: 1415 Total Billed Treatment Time: 30 Total Billed Treatment 1 visit FA 15' GT 15' NIGHAT LANZA PT June 25, 2017 14:19
--- NOTE | 2017-06-25 15:40 | PM & R (SOAP) Progress Note ---
Subjective This was a face to face visit with the patient. Date Seen by Provider: June 25, 2017 Time Seen by Provider: 08:10 Subjective/Events-last exam Patient was seen in her room this AM Patient Min assist for transfers.Appreciate PT/Ot/ST notes Patient with moderate cognitive deficits Objective Physician Exam Last Set of Vital Signs Vital Signs Date Time Temp Pulse Resp B/P (MAP) Pulse Ox O2 Delivery O2 Flow Rate FiO2 06/25/17 09:00 Room Air 06/25/17 06:30 98.0 71 18 120/71 (87) 96 Capillary Refill : I&O Intake and Output 06/25/17 00:00 Intake Total 1090 ml Balance 1090 ml Intake Oral 1090 ml # Voids 5 # Bowel Movements 1 General: Alert, Cooperative, No Acute Distress, Other (Able to follw simple commands but doesnt remember Month or year) HEENT: Atraumatic, PERRLA, EOMI, Mucous Memb Moist/[place], Other (Left frontal crani site incision healing well with liz in place no drainage noted) Neck: Supple, No JVD Lungs: Clear to Auscultation Heart: Regular Rate Abdomen: Normal Bowel Sounds, Soft, No Tenderness Extremities: No Edema Neuro: Other (cognitive deficit as per above Mild rt sided weakness) Assessment/Plan Assessment and Plan 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
[2017-06-25 18:44] VITALS: BP 105/71
[2017-06-25] MEDS: inSUlin ASPART (NovoLOG) 1 UNIT/0.01 ML (CHARGE PER UNIT) SC SCH (22:22)
[2017-06-26] MEDS: DEXAMETHASONE 4 MG TAB (DECADRON) PO SCH ×2 (04:35→17:00)
[2017-06-26 05:50] VITALS: BP 142/86
[2017-06-26] MEDS: inSUlin ASPART (NovoLOG) 1 UNIT/0.01 ML (CHARGE PER UNIT) SC SCH ×4 (05:59→21:29)
[2017-06-26] MEDS: LEVETIRACETAM 500 MG (KEPPRA) TAB PO SCH ×2 (08:09→20:24)
[2017-06-26] MEDS: HYDROCHLOROTHIAZIDE 25 MG (HCTZ) TAB PO SCH (08:10)
[2017-06-26] MEDS: SENNA W/DOCUSATE (SENOKOT S) TABLET PO SCH ×2 (08:10→20:24)
[2017-06-26] MEDS: DOCUSATE SODIUM 100 MG (COLACE) CAP PO SCH ×2 (08:10→20:24)
[2017-06-26] MEDS: lisINopril 20 MG (PRINIVIL) TABLET PO SCH (08:10)
--- NOTE | 2017-06-26 08:54 | Speech Therapy Daily Note ---
Speech Daily Progress Note Subjective Date Seen by Provider: June 26, 2017 Time Seen by Provider: 08:15 The patient was seated upright in bed upon entrance. The patient greeted the clinician and was agreeable to participation in the cognitive treatment session. Objective To note, the patient required consistent verbal cues for appropriate alertness and participation. The patient would consistently turn head away from therapist and close eyes. Assessment of Language Related Functional Activities was continued on this date due to poor participation prior. The patient required maximum verbal prompts for limited participation. - Daily Math Problem Solving: The patient only provided answers to one question. The remaining questions, the patient would close her eyes or shake her head, "no." The patient did communicate her want and needs to use the restroom. The gait belt was placed on the patient and the walker was placed in front of her. The patient stood and was incontinent of bowel and bladder as she began to walk. The clinician aided the patient's personal vehicle advisor with cleaning the patient prior to the close of the session. Assessment Assessment Current Status: Poor Progress Treatment Plan Continue Plan of Care Communication Comprehension: 4 (Understands directions on a basic daily needs approximately 75% of the time.) Expression: 4 (Expressive basic daily needs and ideas approximately 75% of the time.) Social Cognition Social Interaction: 5 (Supervision required.) Problem Solvin (Moderate direction, solves routine problems approximately 75% of the time.) Memory: 4 (Recognizes and remembers 75% of the time.) Speech Short Term Goals Short Term Goals Short Term Goals 1. The patient will state simple orientation information with 90% accuracy and mild clinician cueing. 2. The patient will demonstrate 80% accuracy with structured word-finding exercises with mild clinician cueing. 3. The patient will sustain attention to a task for a duration of five minutes with minimal clinician cueing. Time Frame-STG: One Week Speech Fci Goals Fci Goals 1. The patient will demonstrate improved cognitive linguistic skills for increased function and safety with ADL's in the least restrictive setting. Time Frame: Two Weeks Comprehension: 5 Expression: 5 Social Interaction: 5 Problem Solvin Memory: 4 Speech-Plan Treatment Plan Speech Therapy Treatment Plan: Continue Plan of Care Continue skilled speech pathology to target improved cognitive ability. Treatment Duration: July 05, 2017 Frequency: 3 times per week Estimated Hrs Per Day: .5 hour per day Rehab Potential: Fair Safety Risks/Education Teaching Recipient: Patient Teaching Methods: Discussion Response to Teaching: Reinforcement Needed Education Topics Provided: Results, Recommendations, Plan of Care Time Speech Therapy Time In: 08:15 Speech Therapy Time Out: 08:45 Total Billed Time: 30 Billed Treatment Time 1JESSEE ELIZABETH ST June 26, 2017 08:54
--- NOTE | 2017-06-26 09:59 | PM & R (SOAP) Progress Note ---
Subjective This was a face to face visit with the patient. Date Seen by Provider: June 26, 2017 Time Seen by Provider: 08:10 Subjective/Events-last exam Patient was seen in her room this AM Patient min assist for transfers Crani site healing well with Liz in place Objective Physician Exam Last Set of Vital Signs Vital Signs Date Time Temp Pulse Resp B/P (MAP) Pulse Ox O2 Delivery O2 Flow Rate FiO2 06/26/17 05:50 96.8 74 17 142/86 (104) 94 06/25/17 20:50 Room Air Capillary Refill : I&O Intake and Output 06/26/17 00:00 Intake Total 1100 ml Balance 1100 ml Intake Oral 1100 ml # Voids 8 General: Alert, Cooperative, No Acute Distress, Other (Able to follw simple commands but doesnt remember Month or year) HEENT: Atraumatic, PERRLA, EOMI, Mucous Memb Moist/[place], Other (Left frontal crani site incision healing well with liz in place no drainage noted) Neck: Supple, No JVD Lungs: Clear to Auscultation Heart: Regular Rate Abdomen: Normal Bowel Sounds, Soft, No Tenderness Extremities: No Edema Neuro: Other (cognitive deficit as per above Mild rt sided weakness) Results Lab Data Laboratory Tests 06/25/17 20:46: Glucometer 196H 06/26/17 05:52: Glucometer 126H Assessment/Plan Assessment and Plan Metastatic brain CA s/p left frontal crani and excision Primary Lung CA Seizure prophylaxis on keppra DVT Prophylaxis on heparin Sub cut HTN controlled Plan Continue PT/OT/ST Team Conference later today-See report for full functional update and POC and ELOS (1) Brain tumor Status: Chronic Co-Morbidities that are continuing to impact the rehab process: (include details ) REBEKAH GRECO MD June 26, 2017 09:59
--- NOTE | 2017-06-26 10:40 | Occupational Ther Daily Note ---
OT Current Status-Daily Note Subjective Pt sitting in chair, agrees to treatment with encouragement. Mental Status/Objective Functional [place] Measure 0=Not Assessed/NA 4=Minimal Assistance 1=Total Assistance 5=Supervision or Setup 2=Maximal Assistance 6=Modified [place] 3=Moderate Assistance 7=Complete [place] ADL-Treatment Pt refused shower this morning, did agree to sponge bath. Sit to stand from chair with CGA. Gait to restroom with FWW. Pt has slow pace and stops occasionally, requiring cues to continue. Pt incontinent of bladder before reaching restroom. Transfer to toilet with CGA. Pt doffed underwear, shorts, and socks with SBA. Pt did have a BM while seated on toilet. Assist required for thorough hygiene. Pt transferred to chair at sink for sponge bath. Pt washed upper body with SBA and skilled cues for sequencing and task completion. Pt able to wash lower body with SBA, requires assist to wash buttocks. Pt moves very slowly and requires increased time for ADLs. Pt stops frequently and requires cues to continue task. Don pullover shirt with set up. Pt donned [place] and shorts with CGA for balance. Dons socks with SBA. Pt requests to use toilet again. Transfer to toilet with CGA using grab bars. Pt had BM and required assist for thorough hygiene. Stood at sink for grooming tasks. Pt washed hands and brushed teeth with SBA. Pt returned to EOB and completed sit to supine with SBA. Pt resting in bed with needs met after session. Functional [place] Measure 0=Not Assessed/NA 4=Minimal Assistance 1=Total Assistance 5=Supervision or Setup 2=Maximal Assistance 6=Modified [place] 3=Moderate Assistance 7=Complete IndependenceIRFPAI Quality Coding Scale 6 Independent with activity with or without an assistive device 5 Patient requires set up or clean up by helper. Patient completes activity by themselves 4 Supervision or touching assist (CGA). [place] provide cues , steadying assist 3 The helper provides less than half the effort to complete the activity 2 The helper provides more than half the effort to complete the activity 1 Dependent. The helper does all the effort to complete an activity 7 Patient refused to complete or attempt activity 9 The patient did not perform the activity before the current illness or injury 88 Not attempted due to Medical conditions or safety concerns Grooming (FIM): 5 Oral Hygiene (QC): 4 Bathing (FIM): 4 Upper Body (FIM): 5 Upper Body Dressing (QC): 5 Lower Body Dressing (FIM): 4 (CGA) Lower Body Dressing (QC): 4 (CGA) On/Off Footwear (QC): 5 Toileting (FIM): 3 Toilet/Commode Transfer (FIM): 4 (CGA) Toilet Transfer (QC): 4 (CGA) OT Short Term Goals Short Term Goals Time Frame: June 28, 2017 Lower Body Dressing(FIM): 5 Toileting(FIM): 5 Toilet/Commode Transfer(FIM): 5 Additional Short Term Goals: 1-Demonstrate ADL Tasks, 2-Verbalize Understanding , 3-ImproveStrength/Tacho 1=Demonstrate adherence to instructed precautions during ADL tasks. 2=Patient will verbalize/demonstrate understanding of assistive devices/ modifications for ADL. 3=Patient will improve strength/tolerance for activity to enable patient to perform ADL's. OT Meals On Wheels Driver Goals Meals On Wheels Driver Goals Time Frame: Jul 12, 2017 Eating (FIM): 6 Eating (QC): 6 Groomin Oral Hygiene (QC): 6 Bathing(FIM): 5 Shower/Bathe Self (QC): 5 Upper Body Dressing(FIM): 6 Upper Body Dressing (QC): 6 Lower Body Dressing(FIM): 6 Lower Body Dressing (QC): 6 On/Off Footwear (QC): 6 Toileting(FIM): 6 Toileting Hygiene (QC): 6 Toilet/Commode Transfer(FIM): 6 Toilet/Commode Transfer (QC): 6 Shower Transfer(FIM): 5 Comprehension(FIM): 5 Expression (FIM): 5 Social Interaction(FIM): 5 Problem Solving(FIM): 4 Memory(FIM): 4 Additional Goals: 1-Demonstrate ADL Tasks, 2-Verbalize Understanding, 3- ImproveStrength/Tacho 1=Demonstrate adherence to instructed precautions during ADL tasks. 2=Patient will verbalize/demonstrate understanding of assistive devices/ modifications for ADL. 3=Patient will improve strength/tolerance for activity to enable patient to perform ADL's. OT Education/Plan Discharge Recommendations Plan/Recommendations: Continue POC Treatment Plan/Plan of Care Patient would benefit from OT for education, treatment and training to promote independence in ADL's, mobility, safety and/or upper extremity function for ADL' s. Plan of Care: ADL Retraining, Functional Mobility, Group Exercise/Act as Ind, UE Funct Exercise/Act Treatment Duration: Jul 12, 2017 Frequency: At least 5 of 7 days/Wk (IRF) Estimated Hrs Per Day: 1.5 hours per day Agreement: Yes Rehab Potential: Fair Time/GCodes Start Time: 09:00 Stop Time: 10:15 Total Time Billed (hr/min): 75 Billed Treatment Time 1 visit, ADLx5(75minutes) LAMINE JULIEN OT June 26, 2017 10:40
--- NOTE | 2017-06-26 13:30 | Physical Therapy Daily Note ---
PT Daily Note-Current Subjective Pt is laying Supine in bed upon arrival. Pt agrees to very limited PT. GENERAL ROAD PRODUCTION MANAGER asks pt to transfer out of bed, use restroom, walk or complete Exercises both EOB and Supine but pt declines, reporting she feels she "can't dot it". Pain Numeric Pain Scale: 5-Moderate Pain Location: Incisional Location Body Site: Head Pain Description: Ache Comment: Pt doesn't rate, based on facial grimaces. Mental Status Patient Orientation: Person, Confused, Place Transfers Functional [place] Measure 0=Not Assessed/NA 4=Minimal Assistance 1=Total Assistance 5=Supervision or Setup 2=Maximal Assistance 6=Modified [place] 3=Moderate Assistance 7=Complete IndependenceIRFPAI Quality Coding Scale 6 Independent with activity with or without an assistive device 5 Patient requires set up or clean up by helper. Patient completes activity by themselves 4 Supervision or touching assist (CGA). [place] provide cues , steadying assist 3 The helper provides less than half the effort to complete the activity 2 The helper provides more than half the effort to complete the activity 1 Dependent. The helper does all the effort to complete an activity 7 Patient refused to complete or attempt activity 9 The patient did not perform the activity before the current illness or injury 88 Not attempted due to Medical conditions or safety concerns Scootin Rollin Roll Left to Right (QC): 4 Supine to/from Sit: 4 Sit to/from Stand: 4 Sit to Stand (QC): 4 Weight Bearing Right Lower Extremity: Right Full Weight Bearing Left Lower Extremity: Left Full Weight Bearing Exercises Supine Ex: Ankle pumps, Quad Set, Heel Slides, Straight leg raise, Hip abd/add Supine Reps: 15 Treatments Pt needs encouragement to wake up as well as complete Supine Ex. Pt needs continual VC to stay on task or stay awake. Pt continues to decline when [employer] RO[employer] PRODUCTION MANAGER asks pt to complete activities. Pt finally is convinced to transfer to EOB at CGA-Min A. Pt then transfers to standing using FWW at CGA. Pt transfers to recliner to eat lunch. Pt declines food but is encouraged to eat to build strength for activity and tx. Pt is resting in recliner at end of tx, eating lunch. Pt has all needs met, including call light next to pt. Assessment Current Status: Fair Progress Pt demonstrates a lack of motivation to complete everyday tasks, sometimes a slight depression. Pt is slow paced with all completed activities. PT Short Term Goals Short Term Goals Time Frame: June 28, 2017 Gait (FIM): 5 Gait Distance Comment: 150' Gait Level of Assist: 5 Gait Assistive Device: FWW PT Cement Handler Goals Cement Handler Goals PT Custodial Goals Time Frame: Jul 12, 2017 Transfers (B,C,W/C) (FIM): 6 Sit to Lying (QC): 6 Lying-Sitting on Side/Bed(QC): 6 Sit to Stand (QC): 6 Rollin Roll Left to Right (QC): 6 Chair/Gfs-yc-Xdjid Xfer(QC): 6 Car Transfer (QC): 6 Gait (FIM): 6 Distance: 200' Walk 10 feet (QC): 6 Walk 10ft-Uneven Surface(QC): 6 Walk 50ft with 2 Turns (QC): 6 Walk 150 ft (QC): 6 Gait Assistive Device: FWW Stairs (FIM): 2 # of Steps: 4 1 Step (curb) (QC): 4 4 Steps (QC): 4 Stairs Level Of Assist: 5 Picking up an Object (QC): 5 PT Plan Problem List Problem List: Activity Tolerance, Functional Strength, Safety, Balance, Gait, Transfer, Bed Mobility Treatment/Plan Treatment Plan: Continue Plan of Care Treatment Plan: Bed Mobility, Education, Functional Activity Tacho, Functional Strength, Group Therapy, Gait, Safety, Therapeutic Exercise, Transfers Treatment Duration: Jul 12, 2017 Frequency: At least 5 of 7 days/Wk (IRF) Estimated Hrs Per Day: 1.5 hours per day Patient and/or Family Agrees t: Yes Safety Risks/Education Patient Education: Transfer Techniques, Correct Positioning, Disease Process, Safety Issues Teaching Recipient: Patient Teaching Methods: Demonstration, Discussion Response to Teaching: Verbalize Understanding, Reinforcement Needed Time/GCodes Time In: 1100 Time Out: 1200 Total Billed Treatment Time: 60 Total Billed Treatment 1, FA x4 (60m) G Codes Necessary: VINNY Mclaughlin PTA June 26, 2017 13:30
--- NOTE | 2017-06-26 14:48 | Therapy Group Daily Note ---
Therapy Daily Group Note Patient Education Topic Other List Below (spinal health, posture, strengthening and stretching) Exercises LE Seated Exercise, UE Exercise Other/Notes Pt. participated in group PT OT session. Pt. came/went with FWWand min to mod assist. Pt. had much difficulty in bathroom before group, incont of BM and needed cleaned with max assist and brief changed. Education regarding spinal health, anatomy and posture was taught utilizing jg line and spine model. Pts. contributed personal experiences and participated in spine and trunk exercises and stretches. Pt. to room after in bed with mod assist with charles at hand. Start Time: 13:00 Stop Time: 14:10 Total Billed Treatment Time: 70 Total Billed Treatment 1,GRP AYLA MENDEZ JOINT YARNER June 26, 2017 14:48
[2017-06-26 17:35] VITALS: BP 109/67
[2017-06-27 06:00] VITALS: BP 105/69
[2017-06-27] MEDS: DEXAMETHASONE 4 MG TAB (DECADRON) PO SCH ×2 (06:26→17:34)
[2017-06-27] MEDS: inSUlin ASPART (NovoLOG) 1 UNIT/0.01 ML (CHARGE PER UNIT) SC SCH ×4 (06:34→20:24)
[2017-06-27] MEDS: lisINopril 20 MG (PRINIVIL) TABLET PO SCH (08:51)
[2017-06-27] MEDS: HYDROCHLOROTHIAZIDE 25 MG (HCTZ) TAB PO SCH (08:51)
[2017-06-27] MEDS: LEVETIRACETAM 500 MG (KEPPRA) TAB PO SCH ×2 (08:51→20:24)
[2017-06-27] MEDS: DOCUSATE SODIUM 100 MG (COLACE) CAP PO SCH ×2 (08:51→20:24)
[2017-06-27] MEDS: SENNA W/DOCUSATE (SENOKOT S) TABLET PO SCH ×2 (08:51→20:24)
--- NOTE | 2017-06-27 09:00 | Physical Therapy Daily Note ---
PT Daily Note-Current Subjective Patient in bed pre tx, agrees to PT, no complaints of pain. Patient states she needs to use the restroom. Appearance Patient in recliner post tx with nurse call, phone, tray, chair alarm on, all needs met. Mental Status Patient Orientation: Person Transfers Functional [place] Measure 0=Not Assessed/NA 4=Minimal Assistance 1=Total Assistance 5=Supervision or Setup 2=Maximal Assistance 6=Modified [place] 3=Moderate Assistance 7=Complete IndependenceIRFPAI Quality Coding Scale 6 Independent with activity with or without an assistive device 5 Patient requires set up or clean up by helper. Patient completes activity by themselves 4 Supervision or touching assist (CGA). [place] provide cues , steadying assist 3 The helper provides less than half the effort to complete the activity 2 The helper provides more than half the effort to complete the activity 1 Dependent. The helper does all the effort to complete an activity 7 Patient refused to complete or attempt activity 9 The patient did not perform the activity before the current illness or injury 88 Not attempted due to Medical conditions or safety concerns Transfers (B, C, W/C) (FIM): 4 Scootin Rollin Supine to/from Sit: 5 Sit to/from Stand: 4 Bed to/from Chair: 4 Patient has some difficulty with supine to sit but was able to do it without assist, cues for hand placement and safety. Weight Bearing Right Lower Extremity: Right Full Weight Bearing Left Lower Extremity: Left Full Weight Bearing Gait Training Gait (FIM): 4 Distance: 150'x2 Gait Level of Assist: 4 Gait Persons Needed: 1 Gait Assistive Device: FWW Patient ambulated once with therapist guiding the walker and another time with therapist not guiding the walker. Patient still walks a few steps and stops but this has improved a little. Exercises NuStep Minutes: 15 NuStep Workload: 4 Treatments bed mobility and transfers, ambulation, functional strengthening, patient was toileted once Assessment Current Status: Fair Progress improving ambulation, less cues for direction PT Short Term Goals Short Term Goals Time Frame: June 28, 2017 Gait (FIM): 5 Gait Distance Comment: 150' Gait Level of Assist: 5 Gait Assistive Device: FWW PT Detention Goals Detention Goals PT Detention Goals Time Frame: Jul 12, 2017 Transfers (B,C,W/C) (FIM): 6 Sit to Lying (QC): 6 Lying-Sitting on Side/Bed(QC): 6 Sit to Stand (QC): 6 Rollin Roll Left to Right (QC): 6 Chair/Yxp-yp-Yseck Xfer(QC): 6 Car Transfer (QC): 6 Gait (FIM): 6 Distance: 200' Walk 10 feet (QC): 6 Walk 10ft-Uneven Surface(QC): 6 Walk 50ft with 2 Turns (QC): 6 Walk 150 ft (QC): 6 Gait Assistive Device: FWW Stairs (FIM): 2 # of Steps: 4 1 Step (curb) (QC): 4 4 Steps (QC): 4 Stairs Level Of Assist: 5 Picking up an Object (QC): 5 PT Plan Problem List Problem List: Activity Tolerance, Functional Strength, Safety, Balance, Gait, Transfer, Bed Mobility Treatment/Plan Treatment Plan: Continue Plan of Care Treatment Plan: Bed Mobility, Education, Functional Activity Tacho, Functional Strength, Group Therapy, Gait, Safety, Therapeutic Exercise, Transfers Treatment Duration: Jul 12, 2017 Frequency: At least 5 of 7 days/Wk (IRF) Estimated Hrs Per Day: 1.5 hours per day Patient and/or Family Agrees t: Yes Safety Risks/Education Patient Education: Gait Training, Transfer Techniques, Correct Positioning, Safety Issues Teaching Recipient: Patient Teaching Methods: Demonstration, Discussion Response to Teaching: Reinforcement Needed Time/GCodes Time In: 800 Time Out: 900 Total Billed Treatment Time: 60 Total Billed Treatment 1 visit FA 15' EX 15' GT 30' NIGHAT LANZA PT June 27, 2017 09:00
--- NOTE | 2017-06-27 09:40 | PM & R (SOAP) Progress Note ---
Subjective This was a face to face visit with the patient. Date Seen by Provider: June 27, 2017 Time Seen by Provider: 08:10 Subjective/Events-last exam Patient was seen in her room this AM Patient Min assist for transfers Accucheks noted Objective Physician Exam Last Set of Vital Signs Vital Signs Date Time Temp Pulse Resp B/P (MAP) Pulse Ox O2 Delivery O2 Flow Rate FiO2 06/27/17 06:00 97.5 60 19 105/69 (81) 97 Room Air Capillary Refill : I&O Intake and Output 06/27/17 00:00 Intake Total 1610 ml Balance 1610 ml Intake Oral 1610 ml # Voids 5 # Bowel Movements 3 General: Alert, Cooperative, No Acute Distress, Other (Able to follw simple commands but doesnt remember Month or year) HEENT: Atraumatic, PERRLA, EOMI, Mucous Memb Moist/[place], Other (Left frontal crani site incision healing well with liz in place no drainage noted) Neck: Supple, No JVD Lungs: Clear to Auscultation Heart: Regular Rate Abdomen: Normal Bowel Sounds, Soft, No Tenderness Extremities: No Edema Neuro: Other (cognitive deficit as per above Mild rt sided weakness) Results Lab Data Laboratory Tests 06/25/17 20:46: Glucometer 196H 06/26/17 05:52: Glucometer 126H 06/26/17 11:05: Glucometer 274H 06/26/17 16:16: Glucometer 104 06/26/17 20:56: Glucometer 246H 06/27/17 06:29: Glucometer 130H Assessment/Plan Assessment and Plan Metastatic brain CA s/p left Frontal crani with resection of tumor Primary Lung CA Seizure prophylaxis on Keppra DVT Prophylaxis on Heparin Sub CUT HTN controlled Steroid taper Hyperglycemia steroid induced Plan Continue PT/OT/ST and steroid taper Team Conference held yesterday-See report for full functional update and POC and ELOS (1) Brain tumor Status: Chronic Co-Morbidities that are continuing to impact the rehab process: (include details ) REBEKAH GRECO MD June 27, 2017 09:40
--- NOTE | 2017-06-27 10:50 | Speech Therapy Daily Note ---
Speech Daily Progress Note Subjective Date Seen by Provider: June 27, 2017 Time Seen by Provider: 09:00 The patient was seated upright in the recliner upon entrance. The patient greeted the clinician and did appear somewhat more alert on this date (at least at the initiation of the session). The patient was eating dry cereal throughout the session. Objective As the session progressed, the patient required consistent verbal cues for appropriate alertness and participation. The patient would consistently turn head away from therapist and close eyes. Assessment of Language Related Functional Activities was continued on this date due to poor participation prior (third attempt at functional tasks). The patient required maximum verbal prompts for limited participation. - Daily Math Problem Solving: The patient only provided answers to one question. Due to this, this task was terminated. Word-Finding: The patient was asked to complete phrases provided by the clinician. The patient displayed 75% accuracy with phrase completion with mild to moderate clinician cueing. One-Step and Two-Step: The patient displayed 100% accuracy with one-step and two -step command following. Orientation: The patient was oriented to month, year, and city. The patient required one cue for identification of day of week. Per patient, "I don't like I can think quite the same. I'm just foggy." Assessment Assessment Current Status: Poor Progress Treatment Plan Continue Plan of Care Communication Comprehension: 4 (Understands directions on a basic daily needs approximately 75% of the time.) Expression: 4 (Expressive basic daily needs and ideas approximately 75% of the time.) Social Cognition Social Interaction: 5 (Supervision required.) Problem Solvin (Moderate direction, solves routine problems approximately 75% of the time.) Memory: 4 (Recognizes and remembers 75% of the time.) Speech Short Term Goals Short Term Goals Short Term Goals 1. The patient will state simple orientation information with 90% accuracy and mild clinician cueing. 2. The patient will demonstrate 80% accuracy with structured word-finding exercises with mild clinician cueing. 3. The patient will sustain attention to a task for a duration of five minutes with minimal clinician cueing. Time Frame-STG: One Week Speech [employer] Front Desk Clerk Goals [facility] Goals 1. The patient will demonstrate improved cognitive linguistic skills for increased function and safety with ADL's in the least restrictive setting. Time Frame: Two Weeks Comprehension: 5 Expression: 5 Social Interaction: 5 Problem Solvin Memory: 4 Speech-Plan Treatment Plan Speech Therapy Treatment Plan: Continue Plan of Care Continue skilled speech pathology to target functional problem solving and improved cognition. Treatment Duration: July 05, 2017 Frequency: 3 times per week Estimated Hrs Per Day: .5 hour per day Rehab Potential: Fair Safety Risks/Education Teaching Recipient: Patient Teaching Methods: Discussion Response to Teaching: Reinforcement Needed Education Topics Provided: Orientation Strategies Time Speech Therapy Time In: 09:00 Speech Therapy Time Out: 09:30 Total Billed Time: 30 Billed Treatment Time 1, MIKE RUIZ June 27, 2017 10:50
--- NOTE | 2017-06-27 11:32 | Occupational Ther Daily Note ---
OT Current Status-Daily Note Subjective Pt dozing sitting in recliner. Pt stated that she was tired and needed a little encouragement to participate in therapy. No c/o pain at this time. Mental Status/Objective Patient Orientation: Person Functional [place] Measure 0=Not Assessed/NA 4=Minimal Assistance 1=Total Assistance 5=Supervision or Setup 2=Maximal Assistance 6=Modified [place] 3=Moderate Assistance 7=Complete [place] ADL-Treatment Pt declined shower this date. Functional [place] Measure 0=Not Assessed/NA 4=Minimal Assistance 1=Total Assistance 5=Supervision or Setup 2=Maximal Assistance 6=Modified [place] 3=Moderate Assistance 7=Complete IndependenceIRFPAI Quality Coding Scale 6 Independent with activity with or without an assistive device 5 Patient requires set up or clean up by helper. Patient completes activity by themselves 4 Supervision or touching assist (CGA). [place] provide cues , steadying assist 3 The helper provides less than half the effort to complete the activity 2 The helper provides more than half the effort to complete the activity 1 Dependent. The helper does all the effort to complete an activity 7 Patient refused to complete or attempt activity 9 The patient did not perform the activity before the current illness or injury 88 Not attempted due to Medical conditions or safety concerns Grooming (FIM): 5 (SBA for grooming standing at sink with FWW.) Oral Hygiene (QC): 4 Toileting (FIM): 3 (Pt able to manipulate clothing and reach areas to attempt to cleanse. Pt not efficient cleansing after bowel movement.) Toileting Hygiene (QC): 3 Toilet/Commode Transfer (FIM): 5 (SBA using FWW and grabbar to complete transfer.) Toilet Transfer (QC): 3 Other Treatment Pt requires cues for hand placement for safe sit to stand. Pt requires cue to focus, easily distracted during ambulation or tasks. Pt completed resistive pegs (50 each hand). Easily completed with R hand and constant cueing to complete with L hand. Wrist flex/ext exercises with 2#, 20 reps each. Pt required cues to focus on task. Pt then ambulated back to room and laid down in bed after therapy. Call light/phone in reach. Safety measures in place. All needs met in room. OT Short Term Goals Short Term Goals Time Frame: June 28, 2017 Lower Body Dressing(FIM): 5 Toileting(FIM): 5 Toilet/Commode Transfer(FIM): 5 Additional Short Term Goals: 1-Demonstrate ADL Tasks, 2-Verbalize Understanding , 3-ImproveStrength/Tacho 1=Demonstrate adherence to instructed precautions during ADL tasks. 2=Patient will verbalize/demonstrate understanding of assistive devices/ modifications for ADL. 3=Patient will improve strength/tolerance for activity to enable patient to perform ADL's. OT Paper Supervisor Goals Paper Supervisor Goals Time Frame: Jul 12, 2017 Eating (FIM): 6 Eating (QC): 6 Groomin Oral Hygiene (QC): 6 Bathing(FIM): 5 Shower/Bathe Self (QC): 5 Upper Body Dressing(FIM): 6 Upper Body Dressing (QC): 6 Lower Body Dressing(FIM): 6 Lower Body Dressing (QC): 6 On/Off Footwear (QC): 6 Toileting(FIM): 6 Toileting Hygiene (QC): 6 Toilet/Commode Transfer(FIM): 6 Toilet/Commode Transfer (QC): 6 Shower Transfer(FIM): 5 Comprehension(FIM): 5 Expression (FIM): 5 Social Interaction(FIM): 5 Problem Solving(FIM): 4 Memory(FIM): 4 Additional Goals: 1-Demonstrate ADL Tasks, 2-Verbalize Understanding, 3- ImproveStrength/Tacho 1=Demonstrate adherence to instructed precautions during ADL tasks. 2=Patient will verbalize/demonstrate understanding of assistive devices/ modifications for ADL. 3=Patient will improve strength/tolerance for activity to enable patient to perform ADL's. OT Education/Plan Discharge Recommendations Plan/Recommendations: Continue POC Treatment Plan/Plan of Care Patient would benefit from OT for education, treatment and training to promote independence in ADL's, mobility, safety and/or upper extremity function for ADL' s. Plan of Care: ADL Retraining, Functional Mobility, Group Exercise/Act as Ind, UE Funct Exercise/Act Treatment Duration: Jul 12, 2017 Frequency: At least 5 of 7 days/Wk (IRF) Estimated Hrs Per Day: 1.5 hours per day Agreement: Yes Rehab Potential: Fair Time/GCodes Start Time: 10:15 Stop Time: 11:30 Total Time Billed (hr/min): 75 Billed Treatment Time 1 visit-ADL 2 (35 min) EX 3 (40 min) IRMA BLEDSOE June 27, 2017 11:32
--- NOTE | 2017-06-27 14:51 | Physical Therapy Daily Note ---
PT Daily Note-Current Subjective Pt agreeable to bed exercises only. Report she is tired this pm. Does not want to get out of bed. Transfers Functional [place] Measure 0=Not Assessed/NA 4=Minimal Assistance 1=Total Assistance 5=Supervision or Setup 2=Maximal Assistance 6=Modified [place] 3=Moderate Assistance 7=Complete IndependenceIRFPAI Quality Coding Scale 6 Independent with activity with or without an assistive device 5 Patient requires set up or clean up by helper. Patient completes activity by themselves 4 Supervision or touching assist (CGA). [place] provide cues , steadying assist 3 The helper provides less than half the effort to complete the activity 2 The helper provides more than half the effort to complete the activity 1 Dependent. The helper does all the effort to complete an activity 7 Patient refused to complete or attempt activity 9 The patient did not perform the activity before the current illness or injury 88 Not attempted due to Medical conditions or safety concerns Weight Bearing Right Lower Extremity: Right Full Weight Bearing Left Lower Extremity: Left Full Weight Bearing Treatments B LE ther ex x 15 with near constant cues to keep patient awake and to keep her on task. She performed AP, HS, SAQ and hip abduct. We then worked on positioning in bed to scoot up and be straight in bed. ; she was able to move herself without asssit but needed verbal cues to sequence and again, to stay awake and to keep on task. Assessment Very sleepy. Difficulty staying awake and participating with therapy this afternoon. PT Short Term Goals Short Term Goals Time Frame: June 28, 2017 Gait (FIM): 5 Gait Distance Comment: 150' Gait Level of Assist: 5 Gait Assistive Device: FWW PT Hearing Aid Repairer Goals Hearing Aid Repairer Goals PT Hearing Aid Repairer Goals Time Frame: Jul 12, 2017 Transfers (B,C,W/C) (FIM): 6 Sit to Lying (QC): 6 Lying-Sitting on Side/Bed(QC): 6 Sit to Stand (QC): 6 Rollin Roll Left to Right (QC): 6 Chair/Gks-fl-Ogzud Xfer(QC): 6 Car Transfer (QC): 6 Gait (FIM): 6 Distance: 200' Walk 10 feet (QC): 6 Walk 10ft-Uneven Surface(QC): 6 Walk 50ft with 2 Turns (QC): 6 Walk 150 ft (QC): 6 Gait Assistive Device: FWW Stairs (FIM): 2 # of Steps: 4 1 Step (curb) (QC): 4 4 Steps (QC): 4 Stairs Level Of Assist: 5 Picking up an Object (QC): 5 PT Plan Problem List Problem List: Activity Tolerance, Functional Strength, Safety, Balance, Gait, Transfer, Bed Mobility Treatment/Plan Treatment Plan: Continue Plan of Care Treatment Plan: Bed Mobility, Education, Functional Activity Tacho, Functional Strength, Group Therapy, Gait, Safety, Therapeutic Exercise, Transfers Treatment Duration: Jul 12, 2017 Frequency: At least 5 of 7 days/Wk (IRF) Estimated Hrs Per Day: 1.5 hours per day Patient and/or Family Agrees t: Yes Time/GCodes Time In: 1400 Time Out: 1423 Total Billed Treatment Time: 23 Total Billed Treatment visit EX 15 FA 8 IRMA SAM PT June 27, 2017 14:51
[2017-06-27 17:10] VITALS: BP 108/62
[2017-06-28] MEDS: DEXAMETHASONE 4 MG TAB (DECADRON) PO SCH ×2 (05:21→17:16)
[2017-06-28] MEDS: inSUlin ASPART (NovoLOG) 1 UNIT/0.01 ML (CHARGE PER UNIT) SC SCH ×4 (05:34→21:24)
[2017-06-28 05:35] VITALS: BP 108/68
[2017-06-28] MEDS: SENNA W/DOCUSATE (SENOKOT S) TABLET PO SCH ×2 (08:14→21:00)
[2017-06-28] MEDS: LEVETIRACETAM 500 MG (KEPPRA) TAB PO SCH ×2 (08:14→21:19)
[2017-06-28] MEDS: HYDROCHLOROTHIAZIDE 25 MG (HCTZ) TAB PO SCH (08:14)
[2017-06-28] MEDS: lisINopril 20 MG (PRINIVIL) TABLET PO SCH (08:14)
[2017-06-28] MEDS: DOCUSATE SODIUM 100 MG (COLACE) CAP PO SCH ×2 (08:14→21:00)
--- NOTE | 2017-06-28 09:07 | PM & R (SOAP) Progress Note ---
Subjective This was a face to face visit with the patient. Date Seen by Provider: June 28, 2017 Time Seen by Provider: 08:10 Subjective/Events-last exam Patient was seen in her room this AM Patient min assist for transfers Endurance limited Accucheks noted Review of Systems General: Fatigue Objective Physician Exam Last Set of Vital Signs Vital Signs Date Time Temp Pulse Resp B/P (MAP) Pulse Ox O2 Delivery O2 Flow Rate FiO2 06/28/17 08:10 Room Air 06/28/17 05:35 97.0 58 18 108/68 (81) 97 Capillary Refill : I&O Intake and Output 06/28/17 00:00 Intake Total 770 ml Balance 770 ml Intake Oral 770 ml # Voids 7 # Bowel Movements 2 General: Alert, Cooperative, No Acute Distress, Other (Able to follw simple commands but doesnt remember Month or year) HEENT: Atraumatic, PERRLA, EOMI, Mucous Memb Moist/[place], Other (Left frontal crani site incision healing well with liz in place no drainage noted) Neck: Supple, No JVD Lungs: Clear to Auscultation Heart: Regular Rate Abdomen: Normal Bowel Sounds, Soft, No Tenderness Extremities: No Edema Neuro: Other (cognitive deficit as per above Mild rt sided weakness) Results Lab Data Laboratory Tests 06/25/17 20:46: Glucometer 196H 06/26/17 05:52: Glucometer 126H 06/26/17 11:05: Glucometer 274H 06/26/17 16:16: Glucometer 104 06/26/17 20:56: Glucometer 246H 06/27/17 06:29: Glucometer 130H 06/27/17 11:26: Glucometer 218H 06/27/17 16:23: Glucometer 140H 06/27/17 20:23: Glucometer 187H 06/28/17 05:21: Glucometer 142H Assessment/Plan Assessment and Plan Metastatic brain CA s/p left frontal crani with resection of tumor Primary Lung CA Seizure prophylaxis on Keppra DVT prophylaxis on Heparin SUB cut Steroid taper Hyperglycemia steroid induced Plan Continue PT/OT/ST Team Conference next week 07-03-17 Dr Leonardo covering my service from 07/01/17/ huy 07/05/17 12 noon (1) Brain tumor Status: Chronic Co-Morbidities that are continuing to impact the rehab process: (include details ) REBEKAH GRECO MD June 28, 2017 09:07
--- NOTE | 2017-06-28 09:38 | Physical Therapy Daily Note ---
PT Daily Note-Current Subjective Pt laying Supine in bed with Nurse present upon arrival. Pt agrees to PT. Pt demonstrates weakness and fatigue with activity. Pain Numeric Pain Scale: 3 Location: Incisional Location Body Site: Head Pain Description: Ache Mental Status Patient Orientation: Person, Place, Situation Transfers Functional [place] Measure 0=Not Assessed/NA 4=Minimal Assistance 1=Total Assistance 5=Supervision or Setup 2=Maximal Assistance 6=Modified [place] 3=Moderate Assistance 7=Complete IndependenceIRFPAI Quality Coding Scale 6 Independent with activity with or without an assistive device 5 Patient requires set up or clean up by helper. Patient completes activity by themselves 4 Supervision or touching assist (CGA). [place] provide cues , steadying assist 3 The helper provides less than half the effort to complete the activity 2 The helper provides more than half the effort to complete the activity 1 Dependent. The helper does all the effort to complete an activity 7 Patient refused to complete or attempt activity 9 The patient did not perform the activity before the current illness or injury 88 Not attempted due to Medical conditions or safety concerns Scootin Supine to/from Sit: 4 Sit to/from Stand: 5 Sit to Stand (QC): 5 Weight Bearing Right Lower Extremity: Right Full Weight Bearing Left Lower Extremity: Left Full Weight Bearing Wheelchair Training Does the Pt Use a Wheelchair?: No Exercises Supine Ex: Ankle pumps, Quad Set, Glut sets, Heel Slides, Straight leg raise, Hip abd/add Supine Reps: 15 Treatments Pt transfers from Supine to EOB at CGA-Min A. Pt experiences dizziness & light headedness so pt takes rest before transferring to standing using FWW at close SBA. Pt transfers to recliner to try to eat some breakfast. Pt has had lose of appetite. Pt completes Seated Ex. Pt reports needing to use restroom so transfers from recliner and ambulates to restroom. Pt can complete pericare with extended time given. Pt returns to recliner to rest. Pt is resting at end of tx with all needs met, including next to pt. Assessment Current Status: Fair Progress Pt fatigues easy and appears depressed. Pt needs extended time to complete activities and has difficulty with problem solving skills. PT Short Term Goals Short Term Goals Time Frame: June 28, 2017 Gait (FIM): 5 Gait Distance Comment: 150' Gait Level of Assist: 5 Gait Assistive Device: FWW PT Tire Finisher Goals Intermediate Goals PT Intermediate Goals Time Frame: Jul 12, 2017 Transfers (B,C,W/C) (FIM): 6 Sit to Lying (QC): 6 Lying-Sitting on Side/Bed(QC): 6 Sit to Stand (QC): 6 Rollin Roll Left to Right (QC): 6 Chair/Nhj-ld-Svnum Xfer(QC): 6 Car Transfer (QC): 6 Gait (FIM): 6 Distance: 200' Walk 10 feet (QC): 6 Walk 10ft-Uneven Surface(QC): 6 Walk 50ft with 2 Turns (QC): 6 Walk 150 ft (QC): 6 Gait Assistive Device: FWW Stairs (FIM): 2 # of Steps: 4 1 Step (curb) (QC): 4 4 Steps (QC): 4 Stairs Level Of Assist: 5 Picking up an Object (QC): 5 PT Plan Problem List Problem List: Activity Tolerance, Functional Strength, Safety, Balance, Gait, Transfer, Bed Mobility Treatment/Plan Treatment Plan: Continue Plan of Care Treatment Plan: Bed Mobility, Education, Functional Activity Tacho, Functional Strength, Group Therapy, Gait, Safety, Therapeutic Exercise, Transfers Treatment Duration: Jul 12, 2017 Frequency: At least 5 of 7 days/Wk (IRF) Estimated Hrs Per Day: 1.5 hours per day Patient and/or Family Agrees t: Yes Safety Risks/Education Patient Education: Gait Training, Transfer Techniques, Correct Positioning, Safety Issues Teaching Recipient: Patient Teaching Methods: Discussion Response to Teaching: Reinforcement Needed Time/GCodes Time In: 815 Time Out: 900 Total Billed Treatment Time: 45 Total Billed Treatment 1, FA x2 (30m) & EX (15m) G Codes Necessary: VINNY Mclaughlin NUCLEAR MONITORING TECHNICIAN June 28, 2017 09:38
--- NOTE | 2017-06-28 10:15 | Speech Therapy Daily Note ---
Speech Daily Progress Note Subjective Date Seen by Provider: June 28, 2017 Time Seen by Provider: 09:30 The patient was seated upright in recliner upon entrance, with lights low and a breakfast tray (full) present. The patient deferred any additional PO intake and stated, "I'm just so tired." The patient consistently closed eyes and required maximum verbal prompting for participation in the cognitive treatment session. Objective Orientation: The patient remains oriented to city, location, month, year, and day of week (independently). Sustained Orientation/Problem Solving: The patient was asked to organize a deck of card into suites. The patient displayed sustained attention for five minutes without prompting. The patient consistently corrected errors when she attempted to place cards in erroneous piles. Following sorting, the patient was asked to place cards in numerical value. The patient attempted this task for ten minutes , however, would consistently pause and close eyes, turning away from the clinician. With moderate verbal prompting, the patient was able to organize one suite in a ten minute duration. Assessment Assessment Current Status: Poor Progress Treatment Plan Continue Plan of Care Communication Comprehension: 4 (Understands directions on a basic daily needs approximately 75% of the time.) Expression: 4 (Expressive basic daily needs and ideas approximately 75% of the time.) Social Cognition Social Interaction: 5 (Supervision required.) Problem Solvin (Moderate direction, solves routine problems approximately 75% of the time.) Memory: 4 (Recognizes and remembers 75% of the time.) Speech Short Term Goals Short Term Goals Short Term Goals 1. The patient will state simple orientation information with 90% accuracy and mild clinician cueing. 2. The patient will demonstrate 80% accuracy with structured word-finding exercises with mild clinician cueing. 3. The patient will sustain attention to a task for a duration of five minutes with minimal clinician cueing. Time Frame-STG: One Week Speech Group Home Goals Group Home Goals 1. The patient will demonstrate improved cognitive linguistic skills for increased function and safety with ADL's in the least restrictive setting. Time Frame: Two Weeks Comprehension: 5 Expression: 5 Social Interaction: 5 Problem Solvin Memory: 4 Speech-Plan Treatment Plan Speech Therapy Treatment Plan: Continue Plan of Care Continue skilled speech pathology to target functional safety problem solving. Treatment Duration: July 05, 2017 Frequency: 3 times per week Estimated Hrs Per Day: .5 hour per day Rehab Potential: Fair Safety Risks/Education Teaching Recipient: Patient Teaching Methods: Discussion Response to Teaching: Reinforcement Needed Education Topics Provided: Importance of Sustained Attention for Safety Time Speech Therapy Time In: 09:30 Speech Therapy Time Out: 10:00 Total Billed Time: 30 Billed Treatment Time 1JESSEE [facility]IZ[facility] ST June 28, 2017 10:15
--- NOTE | 2017-06-28 11:58 | Occupational Ther Daily Note ---
OT Current Status-Daily Note Subjective Pt alert, sitting in recliner. Pt agrees to therapy. No c/o pain. Pt having difficulty with sequencing functional tasks. Mental Status/Objective Patient Orientation: Person Functional [place] Measure 0=Not Assessed/NA 4=Minimal Assistance 1=Total Assistance 5=Supervision or Setup 2=Maximal Assistance 6=Modified [place] 3=Moderate Assistance 7=Complete [place] ADL-Treatment Pt agrees to shower though no hot water in shower. Pt agrees to sponge bath. After set up, pt is able to complete bathing with SBA and cues for next step in sequence. Pt able to don/doff all clothing with cues to continue with tasks. Pt then ambulated to bathroom for toileting. Transfer to toilet, SBA. Toileting, SBA. Pt pauses between each task then cues to continue to sink. Pt able to complete grooming with SBA. Functional [place] Measure 0=Not Assessed/NA 4=Minimal Assistance 1=Total Assistance 5=Supervision or Setup 2=Maximal Assistance 6=Modified [place] 3=Moderate Assistance 7=Complete IndependenceIRFPAI Quality Coding Scale 6 Independent with activity with or without an assistive device 5 Patient requires set up or clean up by helper. Patient completes activity by themselves 4 Supervision or touching assist (CGA). [place] provide cues , steadying assist 3 The helper provides less than half the effort to complete the activity 2 The helper provides more than half the effort to complete the activity 1 Dependent. The helper does all the effort to complete an activity 7 Patient refused to complete or attempt activity 9 The patient did not perform the activity before the current illness or injury 88 Not attempted due to Medical conditions or safety concerns Grooming (FIM): 5 Oral Hygiene (QC): 4 Bathing (FIM): 5 Shower/Bathe Self (QC): 4 Upper Body (FIM): 5 Upper Body Dressing (QC): 5 Lower Body Dressing (FIM): 5 Lower Body Dressing (QC): 4 On/Off Footwear (QC): 5 Toileting (FIM): 5 Toileting Hygiene (QC): 4 Toilet/Commode Transfer (FIM): 5 Toilet Transfer (QC): 4 Other Treatment Pt ambulated to [facility]. Pt takes 2 steps and stops then cues needed to start again. Pt completed fine motor and focusing tasks. Pt would stop then start tasks throughout time with 4 verbal cues. After therapy, pt sitting on EOB with nrsg in room. Call light/phone in reach. All needs met in room. Safety measures in place. OT Short Term Goals Short Term Goals Time Frame: June 28, 2017 Lower Body Dressing(FIM): 5 Toileting(FIM): 5 Toilet/Commode Transfer(FIM): 5 Additional Short Term Goals: 1-Demonstrate ADL Tasks, 2-Verbalize Understanding , 3-ImproveStrength/Tacho 1=Demonstrate adherence to instructed precautions during ADL tasks. 2=Patient will verbalize/demonstrate understanding of assistive devices/ modifications for ADL. 3=Patient will improve strength/tolerance for activity to enable patient to perform ADL's. OT Senior Living Goals Semiconductor Assembler Goals Time Frame: Jul 12, 2017 Eating (FIM): 6 Eating (QC): 6 Groomin Oral Hygiene (QC): 6 Bathing(FIM): 5 Shower/Bathe Self (QC): 5 Upper Body Dressing(FIM): 6 Upper Body Dressing (QC): 6 Lower Body Dressing(FIM): 6 Lower Body Dressing (QC): 6 On/Off Footwear (QC): 6 Toileting(FIM): 6 Toileting Hygiene (QC): 6 Toilet/Commode Transfer(FIM): 6 Toilet/Commode Transfer (QC): 6 Shower Transfer(FIM): 5 Comprehension(FIM): 5 Expression (FIM): 5 Social Interaction(FIM): 5 Problem Solving(FIM): 4 Memory(FIM): 4 Additional Goals: 1-Demonstrate ADL Tasks, 2-Verbalize Understanding, 3- ImproveStrength/Tacho 1=Demonstrate adherence to instructed precautions during ADL tasks. 2=Patient will verbalize/demonstrate understanding of assistive devices/ modifications for ADL. 3=Patient will improve strength/tolerance for activity to enable patient to perform ADL's. OT Education/Plan Discharge Recommendations Plan/Recommendations: Continue POC Treatment Plan/Plan of Care Patient would benefit from OT for education, treatment and training to promote independence in ADL's, mobility, safety and/or upper extremity function for ADL' s. Plan of Care: ADL Retraining, Functional Mobility, Group Exercise/Act as Ind, UE Funct Exercise/Act Treatment Duration: Jul 12, 2017 Frequency: At least 5 of 7 days/Wk (IRF) Estimated Hrs Per Day: 1.5 hours per day Agreement: Yes Rehab Potential: Fair Time/GCodes Start Time: 10:15 Stop Time: 11:30 Total Time Billed (hr/min): 75 Billed Treatment Time 1 visit-ADL 4 (60 min) FA 1 (15 min) IRMA BLEDSOE June 28, 2017 11:58
--- NOTE | 2017-06-28 14:59 | Physical Therapy Daily Note ---
PT Daily Note-Current Subjective Patient repeats, "I just woke up....I just woke up." Pain Numeric Pain Scale: 0-No Pain Location: No Pain Reported Mental Status Patient Orientation: Confused Transfers Functional [place] Measure 0=Not Assessed/NA 4=Minimal Assistance 1=Total Assistance 5=Supervision or Setup 2=Maximal Assistance 6=Modified [place] 3=Moderate Assistance 7=Complete IndependenceIRFPAI Quality Coding Scale 6 Independent with activity with or without an assistive device 5 Patient requires set up or clean up by helper. Patient completes activity by themselves 4 Supervision or touching assist (CGA). [place] provide cues , steadying assist 3 The helper provides less than half the effort to complete the activity 2 The helper provides more than half the effort to complete the activity 1 Dependent. The helper does all the effort to complete an activity 7 Patient refused to complete or attempt activity 9 The patient did not perform the activity before the current illness or injury 88 Not attempted due to Medical conditions or safety concerns Transfers (B, C, W/C) (FIM): 4 Scootin Rollin Roll Left to Right (QC): 5 Supine to/from Sit: 4 Sit to/from Stand: 4 Sit to Lying (QC): 4 Sit to Stand (QC): 4 assisted patient to toilet Weight Bearing Right Lower Extremity: Right Full Weight Bearing Left Lower Extremity: Left Full Weight Bearing Gait Training Does the Patient Walk?: Yes Gait (FIM): 1 Distance (FIM): 1=up to 49 ft Distance: 20' x 2 Walk 10 feet (QC): 4 Gait Level of Assist: 4 (for safety) Gait Assistive Device: FWW difficulty with sequencing steps with noted step to pattern Exercises Supine Ex: Ankle pumps, Quad Set, Heel Slides, Straight leg raise, Hip abd/add Supine Reps: 15 (patient requires time and redirection to remain on task) Assessment Patient returned to bed with bed alarm activated. Patient displays difficulty remaining on task and requires redirection. PT Short Term Goals Short Term Goals Time Frame: June 28, 2017 Gait (FIM): 5 Gait Distance Comment: 150' Gait Level of Assist: 5 Gait Assistive Device: FWW PT Detention Goals Detention Goals PT Social Services Designee Goals Time Frame: Jul 12, 2017 Transfers (B,C,W/C) (FIM): 6 Sit to Lying (QC): 6 Lying-Sitting on Side/Bed(QC): 6 Sit to Stand (QC): 6 Rollin Roll Left to Right (QC): 6 Chair/Nrt-vw-Juism Xfer(QC): 6 Car Transfer (QC): 6 Gait (FIM): 6 Distance: 200' Walk 10 feet (QC): 6 Walk 10ft-Uneven Surface(QC): 6 Walk 50ft with 2 Turns (QC): 6 Walk 150 ft (QC): 6 Gait Assistive Device: FWW Stairs (FIM): 2 # of Steps: 4 1 Step (curb) (QC): 4 4 Steps (QC): 4 Stairs Level Of Assist: 5 Picking up an Object (QC): 5 PT Plan Treatment/Plan Treatment Plan: Continue Plan of Care Treatment Plan: Bed Mobility, Education, Functional Activity Tacho, Functional Strength, Group Therapy, Gait, Safety, Therapeutic Exercise, Transfers Treatment Duration: Jul 12, 2017 Frequency: At least 5 of 7 days/Wk (IRF) Estimated Hrs Per Day: 1.5 hours per day Patient and/or Family Agrees t: Yes Time/GCodes Time In: 1420 Time Out: 1450 Total Billed Treatment Time: 30 Total Billed Treatment 1 visit EX x 2 30 min ANDREA CASH PT June 28, 2017 14:59
[2017-06-28 16:41] VITALS: BP 95/62
[2017-06-29 05:36] VITALS: BP 110/66
[2017-06-29] MEDS: inSUlin ASPART (NovoLOG) 1 UNIT/0.01 ML (CHARGE PER UNIT) SC SCH ×4 (06:00→21:28)
[2017-06-29] MEDS: DEXAMETHASONE 4 MG TAB (DECADRON) PO SCH ×2 (06:22→17:57)
[2017-06-29] MEDS: DOCUSATE SODIUM 100 MG (COLACE) CAP PO SCH ×2 (08:11→21:23)
[2017-06-29] MEDS: HYDROCHLOROTHIAZIDE 25 MG (HCTZ) TAB PO SCH (08:11)
[2017-06-29] MEDS: lisINopril 20 MG (PRINIVIL) TABLET PO SCH (08:11)
[2017-06-29] MEDS: SENNA W/DOCUSATE (SENOKOT S) TABLET PO SCH ×2 (08:11→21:24)
[2017-06-29] MEDS: LEVETIRACETAM 500 MG (KEPPRA) TAB PO SCH ×2 (08:11→21:23)
--- NOTE | 2017-06-29 09:38 | Physical Therapy Daily Note ---
PT Daily Note-Current Subjective Pt asleep Supine in bed upon arrival. Pt reluctantly agrees to PT. Pain Numeric Pain Scale: 3 Location: Incisional Location Body Site: Head Pain Description: Ache Mental Status Patient Orientation: Person, Confused, Place Transfers Functional [place] Measure 0=Not Assessed/NA 4=Minimal Assistance 1=Total Assistance 5=Supervision or Setup 2=Maximal Assistance 6=Modified [place] 3=Moderate Assistance 7=Complete IndependenceIRFPAI Quality Coding Scale 6 Independent with activity with or without an assistive device 5 Patient requires set up or clean up by helper. Patient completes activity by themselves 4 Supervision or touching assist (CGA). [place] provide cues , steadying assist 3 The helper provides less than half the effort to complete the activity 2 The helper provides more than half the effort to complete the activity 1 Dependent. The helper does all the effort to complete an activity 7 Patient refused to complete or attempt activity 9 The patient did not perform the activity before the current illness or injury 88 Not attempted due to Medical conditions or safety concerns Scootin Supine to/from Sit: 5 Sit to/from Stand: 4 Weight Bearing Right Lower Extremity: Right Full Weight Bearing Left Lower Extremity: Left Full Weight Bearing Exercises Supine Ex: Ankle pumps, Quad Set, Glut sets, Heel Slides, Hip abd/add Supine Reps: 10 Treatments Pt completes limited Supine Ex in bed before getting up for the day. Pt transfers from supine to EOB using bed rails. Pt sits at EOB for several minutes due to dizziness reported. Pt then transfers from EOB to standing using FWW at CGA for balance. Pt sits in recliner to eat some breakfast. Pt doesn't want to eat although is encouraged to for strengthening. Pt eating yogurt and resting in recliner at end of tx with all needs met, including call light next to pt. Assessment Current Status: Fair Progress Pt fatigues easily and continues to report tiredness & lack of motivation to complete Therapy PT Short Term Goals Short Term Goals Time Frame: June 28, 2017 Gait (FIM): 5 Gait Distance Comment: 150' Gait Level of Assist: 5 Gait Assistive Device: FWW PT Upholsterer Helper Goals Assisted Goals PT Upholsterer Helper Goals Time Frame: Jul 12, 2017 Transfers (B,C,W/C) (FIM): 6 Gait (FIM): 6 Distance: 200' Gait Assistive Device: FWW Stairs (FIM): 2 # of Steps: 4 Stairs Level Of Assist: 5 PT Plan Problem List Problem List: Activity Tolerance, Functional Strength, Safety, Balance, Gait Treatment/Plan Treatment Plan: Continue Plan of Care Treatment Plan: Bed Mobility, Education, Functional Activity Tacho, Functional Strength, Group Therapy, Gait, Safety, Therapeutic Exercise, Transfers Treatment Duration: Jul 12, 2017 Frequency: At least 5 of 7 days/Wk (IRF) Estimated Hrs Per Day: 1.5 hours per day Patient and/or Family Agrees t: Yes Safety Risks/Education Patient Education: Transfer Techniques, Correct Positioning, Safety Issues Teaching Recipient: Patient Teaching Methods: Discussion Response to Teaching: Verbalize Understanding Time/GCodes Time In: 735 Time Out: 800 Total Billed Treatment Time: 25 Total Billed Treatment 1, EX (10m) & FA (15m) G Codes Necessary: VINNY Mclaughlin SENIOR ANALYTICAL CHEMIST June 29, 2017 09:38
[2017-06-29 18:00] VITALS: BP 99/61
[2017-06-30 05:42] VITALS: BP 114/68
[2017-06-30] MEDS: inSUlin ASPART (NovoLOG) 1 UNIT/0.01 ML (CHARGE PER UNIT) SC SCH ×4 (06:00→20:52)
[2017-06-30] MEDS: DEXAMETHASONE 4 MG TAB (DECADRON) PO SCH ×2 (06:24→17:56)
[2017-06-30] MEDS: LEVETIRACETAM 500 MG (KEPPRA) TAB PO SCH ×2 (08:46→20:52)
[2017-06-30] MEDS: SENNA W/DOCUSATE (SENOKOT S) TABLET PO SCH ×2 (08:46→20:52)
[2017-06-30] MEDS: DOCUSATE SODIUM 100 MG (COLACE) CAP PO SCH ×2 (08:46→20:52)
[2017-06-30] MEDS: HYDROCHLOROTHIAZIDE 25 MG (HCTZ) TAB PO SCH (08:47)
[2017-06-30] MEDS: lisINopril 20 MG (PRINIVIL) TABLET PO SCH (08:47)
[2017-06-30 17:49] VITALS: BP 103/67
[2017-07-01 06:02] VITALS: BP 103/65
[2017-07-01] MEDS: DEXAMETHASONE 4 MG TAB (DECADRON) PO SCH ×2 (06:19→18:40)
[2017-07-01] MEDS: inSUlin ASPART (NovoLOG) 1 UNIT/0.01 ML (CHARGE PER UNIT) SC SCH ×4 (06:19→21:05)
[2017-07-01 08:02] VITALS: BP 101/61
[2017-07-01 08:05] VITALS: BP 107/67
[2017-07-01] MEDS: DOCUSATE SODIUM 100 MG (COLACE) CAP PO SCH ×3 (08:58→21:05)
[2017-07-01] MEDS: SENNA W/DOCUSATE (SENOKOT S) TABLET PO SCH ×3 (08:58→21:05)
[2017-07-01] MEDS: LEVETIRACETAM 500 MG (KEPPRA) TAB PO SCH ×2 (08:58→21:05)
--- NOTE | 2017-07-01 10:13 | Physical Therapy Daily Note ---
PT Daily Note-Current Subjective Pt laying Supine asleep in bed. Pt agrees to PT. Pain Numeric Pain Scale: 5-Moderate Pain Location: Incisional Location Body Site: Head Pain Description: Ache Mental Status Patient Orientation: Person, Place, Situation Transfers Functional [place] Measure 0=Not Assessed/NA 4=Minimal Assistance 1=Total Assistance 5=Supervision or Setup 2=Maximal Assistance 6=Modified [place] 3=Moderate Assistance 7=Complete IndependenceIRFPAI Quality Coding Scale 6 Independent with activity with or without an assistive device 5 Patient requires set up or clean up by helper. Patient completes activity by themselves 4 Supervision or touching assist (CGA). [place] provide cues , steadying assist 3 The helper provides less than half the effort to complete the activity 2 The helper provides more than half the effort to complete the activity 1 Dependent. The helper does all the effort to complete an activity 7 Patient refused to complete or attempt activity 9 The patient did not perform the activity before the current illness or injury 88 Not attempted due to Medical conditions or safety concerns Scootin Supine to/from Sit: 4 Sit to/from Stand: 4 Sit to Stand (QC): 4 Weight Bearing Right Lower Extremity: Right Full Weight Bearing Left Lower Extremity: Left Full Weight Bearing Gait Training Does the Patient Walk?: Yes Distance (FIM): 1=up to 49 ft Distance: 40' Walk 10 feet (QC): 5 Walk 50 ft with 2 Turns(QC): 5 Gait Assistive Device: FWW Pt has slow, step to gait pattern. Wheelchair Training Does the Pt Use a Wheelchair?: No Exercises Seated Therapy Exercises: Ankle pumps, Long arc quads, Hip flexion, Kicking activity Treatments Pt very drowsy upon arrival. Pt transfers to EOB using bed rail and LAYOUT INSPECTOR from ETIOLOGIST. Pt experiences dizziness and takes extended break to recover. Pt transfers from EOB to standing at CGA using FWW. Pt reports needing to use restroom. Pt has incontinence episode in restroom before reaching toilet. ETIOLOGIST assists pt with cleanup and changing clothes. Pt returns to recliner to rest. Pt completes Seated Ex at recliner at end of tx with all needs met, including call light in hand. Assessment Current Status: Good Progress Pt fatigues easy and takes extended time to recover. Pt reports dizziness with changes of position. PT Short Term Goals Short Term Goals Time Frame: June 28, 2017 Gait (FIM): 5 Gait Distance Comment: 150' Gait Level of Assist: 5 Gait Assistive Device: FWW PT Elevator Operator Freight Goals Fdc Goals PT Fdc Goals Time Frame: Jul 12, 2017 Transfers (B,C,W/C) (FIM): 6 Sit to Lying (QC): 6 Lying-Sitting on Side/Bed(QC): 6 Sit to Stand (QC): 6 Rollin Roll Left to Right (QC): 6 Chair/Jfs-xm-Epecu Xfer(QC): 6 Car Transfer (QC): 6 Gait (FIM): 6 Distance: 200' Walk 10 feet (QC): 6 Walk 10ft-Uneven Surface(QC): 6 Walk 50ft with 2 Turns (QC): 6 Walk 150 ft (QC): 6 Gait Assistive Device: FWW Stairs (FIM): 2 # of Steps: 4 1 Step (curb) (QC): 4 4 Steps (QC): 4 Stairs Level Of Assist: 5 Picking up an Object (QC): 5 PT Plan Problem List Problem List: Activity Tolerance, Functional Strength, Safety, Balance, Gait, Transfer Treatment/Plan Treatment Plan: Continue Plan of Care Treatment Plan: Bed Mobility, Education, Functional Activity Tacho, Functional Strength, Group Therapy, Gait, Safety, Therapeutic Exercise, Transfers Treatment Duration: Jul 12, 2017 Frequency: At least 5 of 7 days/Wk (IRF) Estimated Hrs Per Day: 1.5 hours per day Patient and/or Family Agrees t: Yes Safety Risks/Education Patient Education: Gait Training, Transfer Techniques, Correct Positioning, Safety Issues Teaching Recipient: Patient Teaching Methods: Discussion Response to Teaching: Verbalize Understanding Time/GCodes Time In: 900 Time Out: 945 Total Billed Treatment Time: 45 Total Billed Treatment 1, FA x2 (30m) & EX (15m) G Codes Necessary: VINNY Mclaughlin ETIOLOGIST July 01, 2017 10:13
--- NOTE | 2017-07-01 10:43 | Occupational Ther Daily Note ---
OT Current Status-Daily Note Subjective Pt alert, sitting in recliner. Pt was eating parfait and drinking coffee. Pt agrees to therapy. No c/o pain at this time. Mental Status/Objective Patient Orientation: Person Functional [place] Measure 0=Not Assessed/NA 4=Minimal Assistance 1=Total Assistance 5=Supervision or Setup 2=Maximal Assistance 6=Modified [place] 3=Moderate Assistance 7=Complete [place] ADL-Treatment Pt completes each task appropriately then has difficulty with initiating following task. Pt requires verbal cues to position FWW during transfers. Pt takes 2 steps then stops requiring verbal cue to initiate walking again. Pt took increased time to complete ADLs due to slow problem solving skills. After therapy, pt sitting in recliner with call light/phone in reach. All needs met in room. Safety measures in place and family present. Functional [place] Measure 0=Not Assessed/NA 4=Minimal Assistance 1=Total Assistance 5=Supervision or Setup 2=Maximal Assistance 6=Modified [place] 3=Moderate Assistance 7=Complete IndependenceIRFPAI Quality Coding Scale 6 Independent with activity with or without an assistive device 5 Patient requires set up or clean up by helper. Patient completes activity by themselves 4 Supervision or touching assist (CGA). [place] provide cues , steadying assist 3 The helper provides less than half the effort to complete the activity 2 The helper provides more than half the effort to complete the activity 1 Dependent. The helper does all the effort to complete an activity 7 Patient refused to complete or attempt activity 9 The patient did not perform the activity before the current illness or injury 88 Not attempted due to Medical conditions or safety concerns Eating (FIM): 6 Eating (QC): 6 Grooming (FIM): 5 (Supervision standing at sink to complete own grooming.) Oral Hygiene (QC): 4 Bathing (FIM): 5 (Pt able to bathe self, verbal cues to wash hair and move water so that it rinses soap off.) Shower/Bathe Self (QC): 4 Upper Body (FIM): 5 (After set up, pt able to complete donning/doffing clothing.) Upper Body Dressing (QC): 4 Lower Body Dressing (FIM): 5 (After set up, pt able to complete pants and briefs. Pt was unable to initially problem solve how to don socks. When pt sat in recliner she was able to don socks by self.) Lower Body Dressing (QC): 4 On/Off Footwear (QC): 4 Toileting (FIM): 5 (SBA using FWW and grabbars.) Toileting Hygiene (QC): 4 Toilet/Commode Transfer (FIM): 5 (SBA using grabbar and FWW.) Toilet Transfer (QC): 4 Shower Transfer(FIM): 5 (Using FWW, grabbar and shower bench pt able to complete with SBA.) OT Short Term Goals Short Term Goals Time Frame: June 28, 2017 Lower Body Dressing(FIM): 5 Toileting(FIM): 5 Toilet/Commode Transfer(FIM): 5 Additional Short Term Goals: 1-Demonstrate ADL Tasks, 2-Verbalize Understanding , 3-ImproveStrength/Tacho 1=Demonstrate adherence to instructed precautions during ADL tasks. 2=Patient will verbalize/demonstrate understanding of assistive devices/ modifications for ADL. 3=Patient will improve strength/tolerance for activity to enable patient to perform ADL's. OT [facility] Goals Food Science Technician Goals Time Frame: Jul 12, 2017 Eating (FIM): 6 Eating (QC): 6 Groomin Oral Hygiene (QC): 6 Bathing(FIM): 5 Shower/Bathe Self (QC): 5 Upper Body Dressing(FIM): 6 Upper Body Dressing (QC): 6 Lower Body Dressing(FIM): 6 Lower Body Dressing (QC): 6 On/Off Footwear (QC): 6 Toileting(FIM): 6 Toileting Hygiene (QC): 6 Toilet/Commode Transfer(FIM): 6 Toilet/Commode Transfer (QC): 6 Shower Transfer(FIM): 5 Comprehension(FIM): 5 Expression (FIM): 5 Social Interaction(FIM): 5 Problem Solving(FIM): 4 Memory(FIM): 4 Additional Goals: 1-Demonstrate ADL Tasks, 2-Verbalize Understanding, 3- ImproveStrength/Tacho 1=Demonstrate adherence to instructed precautions during ADL tasks. 2=Patient will verbalize/demonstrate understanding of assistive devices/ modifications for ADL. 3=Patient will improve strength/tolerance for activity to enable patient to perform ADL's. OT Education/Plan Discharge Recommendations Plan/Recommendations: Continue POC Treatment Plan/Plan of Care Patient would benefit from OT for education, treatment and training to promote independence in ADL's, mobility, safety and/or upper extremity function for ADL' s. Plan of Care: ADL Retraining, Functional Mobility, Group Exercise/Act as Ind, UE Funct Exercise/Act Treatment Duration: Jul 12, 2017 Frequency: At least 5 of 7 days/Wk (IRF) Estimated Hrs Per Day: 1.5 hours per day Agreement: Yes Rehab Potential: Fair Time/GCodes Start Time: 10:00 Stop Time: 11:30 Total Time Billed (hr/min): 90 Billed Treatment Time 1 visit-ADL 6 (90 min) IRMA BLEDSOE July 01, 2017 10:43
[2017-07-01 11:30] VITALS: BP 97/62
[2017-07-01] MEDS: lisINopril 20 MG (PRINIVIL) TABLET PO SCH (11:49)
[2017-07-01] MEDS: HYDROCHLOROTHIAZIDE 25 MG (HCTZ) TAB PO SCH (11:49)
--- NOTE | 2017-07-01 11:49 | Speech Therapy Daily Note ---
Speech Daily Progress Note Subjective Date Seen by Provider: July 01, 2017 Time Seen by Provider: 08:30 The patient was laying in bed with eyes closed upon entrance. The patient briefly opened her eyes to greet the clinician and then promptly re-closed them. The patient nodded her head in agreement to participation in the cognitive treatment session. The patient's breakfast tray was present at bedside. The patient deferred eating regardless of maximum prompting by the clinician. Objective In attempts to re-assess the patient's cognitive status due to consistent poor participation, the clinician provided the MoCA (Version Two) on this date. The patient was able to repeat five single digits forward and three digits in reverse with maximum, consistent cueing. The patient was unable to identify a specific letter in a string of letters, complete serial seven subtraction, or word-finding activities. The patient could not repeat five digits immediately or five digits following a five minute delay. The patient was oriented to date, month, year, day, place, and city. The patient was not able or not willing to complete trail-making, clock drawing , or cube copying. While excluding the executive function activities, the patient displayed a score of +12/22 (54%) correlating to a moderate cognitive impairment. Assessment Assessment Current Status: Regressing Treatment Plan Continue Plan of Care Communication Comprehension: 4 (Understands directions on a basic daily needs approximately 75% of the time.) Expression: 4 (Expressive basic daily needs and ideas approximately 75% of the time.) Social Cognition Social Interaction: 1 (Supervision required.) Problem Solvin (Moderate direction, solves routine problems approximately 75% of the time.) Memory: 4 (Recognizes and remembers 75% of the time.) Speech Short Term Goals Short Term Goals Short Term Goals 1. The patient will state simple orientation information with 90% accuracy and mild clinician cueing. 2. The patient will demonstrate 80% accuracy with structured word-finding exercises with mild clinician cueing. 3. The patient will sustain attention to a task for a duration of five minutes with minimal clinician cueing. Time Frame-STG: One Week Speech Court Stenographer Goals Court Stenographer Goals 1. The patient will demonstrate improved cognitive linguistic skills for increased function and safety with ADL's in the least restrictive setting. Time Frame: Two Weeks Comprehension: 5 Expression: 5 Social Interaction: 5 Problem Solvin Memory: 4 Speech-Plan Treatment Plan Speech Therapy Treatment Plan: Continue Plan of Care Continue skilled speech pathology to target functional problem solving and cognition. Treatment Duration: July 05, 2017 Frequency: 3 times per week Estimated Hrs Per Day: .5 hour per day Rehab Potential: Fair Safety Risks/Education Teaching Recipient: Patient Teaching Methods: Discussion Response to Teaching: Reinforcement Needed Education Topics Provided: Results, Importance of Increased Participation Time Speech Therapy Time In: 08:30 Speech Therapy Time Out: 09:00 Total Billed Time: 30 Billed Treatment Time 1, MIKE RUIZ July 01, 2017 11:49
--- NOTE | 2017-07-01 15:28 | Therapy Group Daily Note ---
Therapy Daily Group Note Patient Education Topic Other List Below (ARU Description) Exercises LE Seated Exercise, UE Exercise Other/Notes Pt ambulated to PT/OT Group using FWW at [facility]. Group consisted of Introduction ( Name, Current Location & Personal Fact), Socialization, UE/LE Ex with Theraband , ARU Description, Current Events in the form of Jeopardy activity & Words of Inspiration for new patients. Pt actively participated in Group by completing Seated Ex as well as giving verbal responses to questions when asked. Pt also gave his Word of Inspiration during Group. Pt returned to room at the end of Group via FWW to rest Supine in bed. Pt has all needs met, including call light in hand. Start Time: 13:00 Stop Time: 14:05 Total Billed Treatment Time: 65 Total Billed Treatment 1, GRP (65m) VINNY COSME CHEMICAL PUMPER July 01, 2017 15:27
[2017-07-01 16:49] VITALS: BP 115/67
[2017-07-02] MEDS: DEXAMETHASONE 4 MG TAB (DECADRON) PO SCH ×2 (05:00→17:20)
[2017-07-02] MEDS: inSUlin ASPART (NovoLOG) 1 UNIT/0.01 ML (CHARGE PER UNIT) SC SCH ×4 (05:00→21:00)
[2017-07-02 05:29] VITALS: BP 132/71
[2017-07-02] MEDS: DOCUSATE SODIUM 100 MG (COLACE) CAP PO SCH ×2 (08:13→21:00)
[2017-07-02] MEDS: SENNA W/DOCUSATE (SENOKOT S) TABLET PO SCH ×2 (08:13→21:00)
[2017-07-02] MEDS: LEVETIRACETAM 500 MG (KEPPRA) TAB PO SCH ×2 (08:13→21:18)
[2017-07-02] MEDS: lisINopril 20 MG (PRINIVIL) TABLET PO SCH (09:23)
[2017-07-02] MEDS: HYDROCHLOROTHIAZIDE 25 MG (HCTZ) TAB PO SCH (09:23)
--- NOTE | 2017-07-02 09:58 | Speech Therapy Daily Note ---
Speech Daily Progress Note Subjective Date Seen by Provider: July 02, 2017 Time Seen by Provider: 08:22 The patient was laying in bed with eyes closed upon entrance. The patient briefly opened her eyes to greet the clinician and then promptly re-closed them. The patient nodded her head in agreement to participation in the cognitive treatment session. The patient's breakfast tray was present at bedside. The patient ate toast and a few bites of her yogurt parfait. Objective Functional Reading was initiated on this date. The patient was asked to read a brief passage and answer questions regarding the passage. The patient was able to displays 92% accuracy with the task, however, required consistent maximum verbal cueing with included repetition (at least three to four times) of each question. The patient demonstrated a consistent response delay, at one time taking seven minutes to answer a yes or no question. The patient requires consistent redirection throughout the session. Orientation: The patient remains 100% oriented to month, day, year, date, and city. Assessment Assessment Current Status: Poor Progress Treatment Plan Continue Plan of Care Communication Comprehension: 4 (Understands directions on a basic daily needs approximately 75% of the time.) Expression: 4 (Expressive basic daily needs and ideas approximately 75% of the time.) Social Cognition Social Interaction: 1 (Supervision required.) Problem Solvin (Moderate direction, solves routine problems approximately 75% of the time.) Memory: 4 (Recognizes and remembers 75% of the time.) Speech Short Term Goals Short Term Goals Short Term Goals 1. The patient will state simple orientation information with 90% accuracy and mild clinician cueing. 2. The patient will demonstrate 80% accuracy with structured word-finding exercises with mild clinician cueing. 3. The patient will sustain attention to a task for a duration of five minutes with minimal clinician cueing. Time Frame-STG: One Week Speech Oven Stripper Goals Oven Stripper Goals 1. The patient will demonstrate improved cognitive linguistic skills for increased function and safety with ADL's in the least restrictive setting. Time Frame: Two Weeks Comprehension: 5 Expression: 5 Social Interaction: 5 Problem Solvin Memory: 4 Speech-Plan Treatment Plan Speech Therapy Treatment Plan: Continue Plan of Care Continue skilled speech pathology to target improved sustained attention. Treatment Duration: July 05, 2017 Frequency: 3 times per week Estimated Hrs Per Day: .5 hour per day Rehab Potential: Fair Safety Risks/Education Teaching Recipient: Patient Teaching Methods: Discussion Response to Teaching: Reinforcement Needed Education Topics Provided: Importance of Sustained Attention Time Speech Therapy Time In: 08:22 Speech Therapy Time Out: 08:52 Total Billed Time: 30 Billed Treatment Time 1JESSEE ELIZABETH ST July 02, 2017 09:58
--- NOTE | 2017-07-02 10:59 | Physical Therapy Daily Note ---
PT Daily Note-Current Subjective Pt. in bed with eyes closed. Says very little. Answers yes and no , has much trouble following instruction and conversation Pain Numeric Pain Scale: 4 Location: Medial Location Body Site: Sacrum (perineum, anal hemmorhoid ?) Pain Description: Pressure Appearance c/o so very tired Mental Status Patient Orientation: Confused Transfers Functional [place] Measure 0=Not Assessed/NA 4=Minimal Assistance 1=Total Assistance 5=Supervision or Setup 2=Maximal Assistance 6=Modified [place] 3=Moderate Assistance 7=Complete IndependenceIRFPAI Quality Coding Scale 6 Independent with activity with or without an assistive device 5 Patient requires set up or clean up by helper. Patient completes activity by themselves 4 Supervision or touching assist (CGA). [place] provide cues , steadying assist 3 The helper provides less than half the effort to complete the activity 2 The helper provides more than half the effort to complete the activity 1 Dependent. The helper does all the effort to complete an activity 7 Patient refused to complete or attempt activity 9 The patient did not perform the activity before the current illness or injury 88 Not attempted due to Medical conditions or safety concerns Weight Bearing Right Lower Extremity: Right Full Weight Bearing Left Lower Extremity: Left Full Weight Bearing Gait Training Does the Patient Walk?: Yes Gait (FIM): 1 Distance (FIM): 1=up to 49 ft Gait Level of Assist: 4 Gait Persons Needed: 1 Gait Assistive Device: FWW pt. fatigues very quickly and requires frequent rest breaks, pt. stops while walking or mid task and closes eyes and states "Im tired" Exercises Supine Ex: Bridging, Ankle pumps, Quad Set, Rolling, Heel Slides, Straight leg raise, Hip abd/add Supine Reps: 12 Treatments pt. with very wet and soiled brief, pants, and bed pad and socks. Pt. in bathroom had med BM, was cleaned and changed all clothing and bedding. Pt. with noted large bulging area at anus . Pt. c/o discomfort. Nursing called to examine etc. Assessment Current Status: Regressing pt. appears thinner , states she has no appetite and is so very tired. Declining PT Short Term Goals Short Term Goals Time Frame: June 28, 2017 Gait (FIM): 5 Gait Distance Comment: 150' Gait Level of Assist: 5 Gait Assistive Device: FWW PT Parachute Accessories Attacher Goals Parachute Accessories Attacher Goals PT Intermediate Goals Time Frame: Jul 12, 2017 Transfers (B,C,W/C) (FIM): 6 Sit to Lying (QC): 6 Lying-Sitting on Side/Bed(QC): 6 Sit to Stand (QC): 6 Rollin Roll Left to Right (QC): 6 Chair/Sok-nq-Pfjhf Xfer(QC): 6 Car Transfer (QC): 6 Gait (FIM): 6 Distance: 200' Walk 10 feet (QC): 6 Walk 10ft-Uneven Surface(QC): 6 Walk 50ft with 2 Turns (QC): 6 Walk 150 ft (QC): 6 Gait Assistive Device: FWW Stairs (FIM): 2 # of Steps: 4 1 Step (curb) (QC): 4 4 Steps (QC): 4 Stairs Level Of Assist: 5 Picking up an Object (QC): 5 PT Plan Treatment/Plan Treatment Plan: Continue Plan of Care Treatment Plan: Bed Mobility, Education, Functional Activity Tacho, Functional Strength, Group Therapy, Gait, Safety, Therapeutic Exercise, Transfers Treatment Duration: Jul 12, 2017 Frequency: At least 5 of 7 days/Wk (IRF) Estimated Hrs Per Day: 1.5 hours per day Patient and/or Family Agrees t: Yes Safety Risks/Education Patient Education: Gait Training, Transfer Techniques, Correct Positioning, Safety Issues Teaching Recipient: Patient Teaching Methods: Demonstration, Discussion Response to Teaching: Verbalize Understanding, Return Demonstration, Reinforcement Needed Time/GCodes Time In: 1000 Time Out: 1050 Total Billed Treatment Time: 50 Total Billed Treatment 1,EX15m,FA20m,GT15m G Codes Necessary: AYLA Sherman LEATHER DRIER July 02, 2017 10:59
--- NOTE | 2017-07-02 12:26 | Occupational Ther Daily Note ---
OT Current Status-Daily Note Subjective Pt alert, lying in bed. Pt agrees to therapy. No c/o pain. Mental Status/Objective Patient Orientation: Person, Place, Time, Situation Functional [place] Measure 0=Not Assessed/NA 4=Minimal Assistance 1=Total Assistance 5=Supervision or Setup 2=Maximal Assistance 6=Modified [place] 3=Moderate Assistance 7=Complete [place] ADL-Treatment Functional [place] Measure 0=Not Assessed/NA 4=Minimal Assistance 1=Total Assistance 5=Supervision or Setup 2=Maximal Assistance 6=Modified [place] 3=Moderate Assistance 7=Complete IndependenceIRFPAI Quality Coding Scale 6 Independent with activity with or without an assistive device 5 Patient requires set up or clean up by helper. Patient completes activity by themselves 4 Supervision or touching assist (CGA). [place] provide cues , steadying assist 3 The helper provides less than half the effort to complete the activity 2 The helper provides more than half the effort to complete the activity 1 Dependent. The helper does all the effort to complete an activity 7 Patient refused to complete or attempt activity 9 The patient did not perform the activity before the current illness or injury 88 Not attempted due to Medical conditions or safety concerns Eating (FIM): 5 (After set up, pt is able to use regular utensils to cut food and feed self. Pt takes increased time to complete eating. Has difficulty transitioning from finishing one food item to another. After a lengthy pause pt will reach for next item.) Eating (QC): 5 Grooming (FIM): 5 (Supervision while standing at sink to complete grooming. Pt required time to transition from washing hands to brushing teeth then needed one visual cue to start set up of brushing teeth.) Oral Hygiene (QC): 5 Lower Body Dressing (FIM): 5 (After set up, pt is able to complete donning/ doffing clothing. Pt takes increased time to complete task.) Lower Body Dressing (QC): 5 On/Off Footwear (QC): 5 Toileting (FIM): 4 (Able to manipulate clothing and cleanse self though inefficiently. Assist to thoroughly cleanse after BM.) Toileting Hygiene (QC): 3 Toilet/Commode Transfer (FIM): 5 (Supervision. Pt takes increased time to problem solve how to maneuver self and FWW.) Toilet Transfer (QC): 4 After therapy, pt lying in bed with call light/phone in reach. All needs met in room. OT Short Term Goals Short Term Goals Time Frame: June 28, 2017 Lower Body Dressing(FIM): 5 Toileting(FIM): 5 Toilet/Commode Transfer(FIM): 5 Additional Short Term Goals: 1-Demonstrate ADL Tasks, 2-Verbalize Understanding , 3-ImproveStrength/Tacho 1=Demonstrate adherence to instructed precautions during ADL tasks. 2=Patient will verbalize/demonstrate understanding of assistive devices/ modifications for ADL. 3=Patient will improve strength/tolerance for activity to enable patient to perform ADL's. OT Locomotive Driver Goals Locomotive Driver Goals Time Frame: Jul 12, 2017 Eating (FIM): 6 Eating (QC): 6 Groomin Oral Hygiene (QC): 6 Bathing(FIM): 5 Shower/Bathe Self (QC): 5 Upper Body Dressing(FIM): 6 Upper Body Dressing (QC): 6 Lower Body Dressing(FIM): 6 Lower Body Dressing (QC): 6 On/Off Footwear (QC): 6 Toileting(FIM): 6 Toileting Hygiene (QC): 6 Toilet/Commode Transfer(FIM): 6 Toilet/Commode Transfer (QC): 6 Shower Transfer(FIM): 5 Comprehension(FIM): 5 Expression (FIM): 5 Social Interaction(FIM): 5 Problem Solving(FIM): 4 Memory(FIM): 4 Additional Goals: 1-Demonstrate ADL Tasks, 2-Verbalize Understanding, 3- ImproveStrength/Tacho 1=Demonstrate adherence to instructed precautions during ADL tasks. 2=Patient will verbalize/demonstrate understanding of assistive devices/ modifications for ADL. 3=Patient will improve strength/tolerance for activity to enable patient to perform ADL's. OT Education/Plan Discharge Recommendations Plan/Recommendations: Continue POC Treatment Plan/Plan of Care Patient would benefit from OT for education, treatment and training to promote independence in ADL's, mobility, safety and/or upper extremity function for ADL' s. Plan of Care: ADL Retraining, Functional Mobility, Group Exercise/Act as Ind, UE Funct Exercise/Act Treatment Duration: Jul 12, 2017 Frequency: At least 5 of 7 days/Wk (IRF) Estimated Hrs Per Day: 1.5 hours per day Agreement: Yes Rehab Potential: Fair Time/GCodes Start Time: 12:15 Stop Time: 13:30 Total Time Billed (hr/min): 75 Billed Treatment Time 1 visit-ADL 5 (75 min) IRMA BLEDSOE July 02, 2017 12:26
--- NOTE | 2017-07-02 14:24 | Physical Therapy Daily Note ---
PT Daily Note-Current Subjective Pt. in bed, eyes closed, moans when spoken to. Shakes head no that she doesnt want to get up. Agrees with much encouragement. Pt. c/o dizziness upon sitting to EOB. When asked if she has pain pt. state her feet hurt. Pain Comment: pt. c/o pain in both feet but does not rate pain Appearance very lethargic, unable to stay on task or mobility for any amt of time. cognitive impairment, declining Mental Status Patient Orientation: Confused, Mumbles, Listless Transfers Functional [place] Measure 0=Not Assessed/NA 4=Minimal Assistance 1=Total Assistance 5=Supervision or Setup 2=Maximal Assistance 6=Modified [place] 3=Moderate Assistance 7=Complete IndependenceIRFPAI Quality Coding Scale 6 Independent with activity with or without an assistive device 5 Patient requires set up or clean up by helper. Patient completes activity by themselves 4 Supervision or touching assist (CGA). [place] provide cues , steadying assist 3 The helper provides less than half the effort to complete the activity 2 The helper provides more than half the effort to complete the activity 1 Dependent. The helper does all the effort to complete an activity 7 Patient refused to complete or attempt activity 9 The patient did not perform the activity before the current illness or injury 88 Not attempted due to Medical conditions or safety concerns mod assist for sup to sit. , min assist for sit to stand Weight Bearing Right Lower Extremity: Right Full Weight Bearing Left Lower Extremity: Left Full Weight Bearing Gait Training pt. with great challenge for gait, fatigues very quickly and has dizziness with position change Treatments cleaning BM and assisted wound care as they inspected pts coccyx and frida area Assessment Current Status: Good Progress, Regressing, Fair Progress declining daily PT Short Term Goals Short Term Goals Time Frame: June 28, 2017 Gait (FIM): 5 Gait Distance Comment: 150' Gait Level of Assist: 5 Gait Assistive Device: FWW PT Advertising Strategist Goals Senior Care Goals PT Advertising Strategist Goals Time Frame: Jul 12, 2017 Transfers (B,C,W/C) (FIM): 6 Sit to Lying (QC): 6 Lying-Sitting on Side/Bed(QC): 6 Sit to Stand (QC): 6 Rollin Roll Left to Right (QC): 6 Chair/Srh-yi-Xittp Xfer(QC): 6 Car Transfer (QC): 6 Gait (FIM): 6 Distance: 200' Walk 10 feet (QC): 6 Walk 10ft-Uneven Surface(QC): 6 Walk 50ft with 2 Turns (QC): 6 Walk 150 ft (QC): 6 Gait Assistive Device: FWW Stairs (FIM): 2 # of Steps: 4 1 Step (curb) (QC): 4 4 Steps (QC): 4 Stairs Level Of Assist: 5 Picking up an Object (QC): 5 PT Plan Treatment/Plan Treatment Plan: Continue Plan of Care Treatment Plan: Bed Mobility, Education, Functional Activity Tacho, Functional Strength, Group Therapy, Gait, Safety, Therapeutic Exercise, Transfers Treatment Duration: Jul 12, 2017 Frequency: At least 5 of 7 days/Wk (IRF) Estimated Hrs Per Day: 1.5 hours per day Patient and/or Family Agrees t: Yes Safety Risks/Education Patient Education: Gait Training, Transfer Techniques needs assist for all and repeated insturction Time/GCodes Time In: 1405 Time Out: 1435 Total Billed Treatment Time: 30 Total Billed Treatment 1,FA30m G Codes Necessary: AYLA Sherman ESTIMATOR AND DRAFTER SUPERVISOR July 02, 2017 14:24
[2017-07-02 18:26] VITALS: BP 132/84
[2017-07-03 06:00] VITALS: BP 105/67
[2017-07-03] MEDS: inSUlin ASPART (NovoLOG) 1 UNIT/0.01 ML (CHARGE PER UNIT) SC SCH ×4 (06:00→21:00)
[2017-07-03] MEDS: LEVETIRACETAM 500 MG (KEPPRA) TAB PO SCH ×2 (08:00→21:35)
[2017-07-03] MEDS: SENNA W/DOCUSATE (SENOKOT S) TABLET PO SCH ×2 (08:00→21:00)
[2017-07-03] MEDS: lisINopril 20 MG (PRINIVIL) TABLET PO SCH (08:00)
[2017-07-03] MEDS: DOCUSATE SODIUM 100 MG (COLACE) CAP PO SCH ×2 (08:00→21:35)
[2017-07-03] MEDS: HYDROCHLOROTHIAZIDE 25 MG (HCTZ) TAB PO SCH (08:00)
--- NOTE | 2017-07-03 08:59 | Speech Therapy Daily Note ---
Speech Daily Progress Note Subjective Date Seen by Provider: July 03, 2017 Time Seen by Provider: 08:25 The patient was laying upright in bed, sleeping upon entrance. The patient greeted the clinician with her eyes closed and was agreeable to participation in the cognitive treatment session. The patient required consistent, maximum verbal cueing for responses throughout the session, as well as, to remain at an appropriate alertness level. When the patient was asked what challenges she has experienced since her procedure she stated, "staying awake." Objective As the patient is to discharge tomorrow, repeat evaluation of cognitive status was performed. - The patient was oriented to name, date of , age, location, city, month, day of week, date, and year. - The patient could repeat five digits forward and three digits in reverse, as well as, state the months of the year and the days of the week. Additionally, the patient was able to repeat short phrases and list three items that belonged in a specific category. - The patient provided two words in one minute for a structured word finding activity. - The patient did not respond to functional problem solving activities, however , did respond appropriately to yes and no questions. To note, the patient required maximum verbal cueing for alertness and participation. The patient frequently closed her eyes and fell asleep throughout the session regardless of consistent input by the clinician. Assessment Assessment Current Status: Poor Progress Treatment Plan Continue Plan of Care Communication Comprehension: 4 (Understands directions on a basic daily needs approximately 75% of the time.) Expression: 3 (Expressive basic daily needs and ideas less than 75% of the time.) Social Cognition Social Interaction: 1 (Supervision required.) Problem Solvin (Moderate direction, solves routine problems approximately 75% of the time.) Memory: 4 (Recognizes and remembers 75% of the time.) Speech Short Term Goals Short Term Goals Short Term Goals 1. The patient will state simple orientation information with 90% accuracy and mild clinician cueing. 2. The patient will demonstrate 80% accuracy with structured word-finding exercises with mild clinician cueing. 3. The patient will sustain attention to a task for a duration of five minutes with minimal clinician cueing. Time Frame-STG: One Week Speech Asset Protection Manager Goals Asset Protection Manager Goals 1. The patient will demonstrate improved cognitive linguistic skills for increased function and safety with ADL's in the least restrictive setting. Time Frame: Two Weeks Comprehension: 5 (NOT MET) Expression: 5 (NOT MET) Social Interaction: 5 (NOT MET) Problem Solvin (NOT MET) Memory: 4 (MET) Speech-Plan Treatment Plan Speech Therapy Treatment Plan: Continue Plan of Care Continue skilled speech pathology to target functional cognitive improvement. Treatment Duration: July 05, 2017 Frequency: 3 times per week Estimated Hrs Per Day: .5 hour per day Rehab Potential: Fair Safety Risks/Education Teaching Recipient: Patient Teaching Methods: Discussion Response to Teaching: Reinforcement Needed Education Topics Provided: Recommendations, Results Discharge Recommendations Group Home (TCU/NH) Time Speech Therapy Time In: 08:25 Speech Therapy Time Out: 08:55 Total Billed Time: 30 Billed Treatment Time 1, MIKE RUIZ July 03, 2017 08:59
--- NOTE | 2017-07-03 09:22 | Progress Note (SOAP) ---
Subjective Time Seen by Provider: 09:20 Subjective/Events-last exam Brain tumor. Metastasis Patient not doing better. Patient discharged today Objective Exam Vital Signs Date Time Temp Pulse Resp B/P (MAP) Pulse Ox O2 Delivery O2 Flow Rate FiO2 07/03/17 06:00 96.8 77 18 105/67 (80) 94 Room Air 07/02/17 21:00 Room Air 07/02/17 18:26 97.1 86 18 132/84 (100) 97 Room Air I & O 07/03/17 07:00 Intake Total 1260 ml Output Total 550 ml Balance 710 ml Capillary Refill : General Appearance: No Apparent Distress, WD/WN Results Lab Laboratory Tests 07/02/17 11:07: Glucometer 195H 07/02/17 15:59: Glucometer 127H 07/02/17 21:17: Glucometer 192H 07/03/17 06:23: Glucometer 114H Assessment/Plan Assessment/Plan Assess & Plan/Chief Complaint Primary lung cancer. Metastasis to brain. Patient be discharged today. Patient having in the wrong direction Clinical Quality Measures DVT/VTE Risk/Contraindication: Risk Factor Score Per Nursin RFS Level Per Nursing on Admit: 4+=Very High ALLAN MARTÍNEZ DO July 03, 2017 9:22 am
--- NOTE | 2017-07-03 10:16 | Therapy Team Discharge Summary ---
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 Upon arrival, the patient displays a moderate cognitive impairment, most notably in the areas of attention and problem solving. Skilled speech pathology focused on sustained attention, functional reading and instruction following, safety problem solving , and orientation. The patient displayed extremely poor progress, with regression in expressive ability. The patient displays limited initiation or motivation and is currently displaying increased lethargy and fatigue. Maximum clinician cueing was consistently required for limited participation in therapy tasks. The patient did not meet goals placed by this clinician. At this time, the patient is discharged from skilled speech pathology services. Additional services are not warranted due to the patient's lack of participation and progress. PT Zigzag Elastic Attacher Goals Zigzag Elastic Attacher Goals PT Care Home Goals Time Frame: Jul 12, 2017 Transfers (B,C,W/C) (FIM): 6 Roll Left to Right (QC): 6 Sit to Lying (QC): 6 Lying-Sitting on Side/Bed(QC): 6 Sit to Stand (QC): 6 Chair/Vtq-ak-Mhvtt Xfer(QC): 6 Car Transfer (QC): 6 Gait (FIM): 6 Distance: 200' Walk 10 feet (QC): 6 Walk 10ft-Uneven Surface(QC): 6 Walk 50ft with 2 Turns (QC): 6 Walk 150 ft (QC): 6 Gait Assistive Device: FWW Stairs (FIM): 2 # of Steps: 4 1 Step (curb) (QC): 4 4 Steps (QC): 4 Stairs Level Of Assist: 5 Picking up an Object (QC): 5 OT Zigzag Elastic Attacher Goals Zigzag Elastic Attacher Goals Time Frame: Jul 12, 2017 Eating (FIM): 6 Eating (QC): 6 Oral Hygiene (QC): 6 Grooming(FIM): 6 Bathing(FIM): 5 Shower/Bathe Self (QC): 5 Upper Body Dressing(FIM): 6 Upper Body Dressing (QC): 6 Lower Body Dressing(FIM): 6 Lower Body Dressing (QC): 6 On/Off Footwear (QC): 6 Toileting(FIM): 6 Toileting Hygiene (QC): 6 Toilet/Commode Transfer(FIM): 6 Toilet/Commode Transfer (QC): 6 Shower Transfer(FIM): 5 Comprehension(FIM): 5 (NOT MET) Expression (FIM): 5 (NOT MET) Social Interaction(FIM): 5 (NOT MET) Problem Solving(FIM): 4 (NOT MET) Memory(FIM): 4 (MET) Additional Goals: 1-Demonstrate ADL Tasks, 2-Verbalize Understanding, 3- ImproveStrength/Tacho 1=Demonstrate adherence to instructed precautions during ADL tasks. 2=Patient will verbalize/demonstrate understanding of assistive devices/ modifications for ADL. 3=Patient will improve strength/tolerance for activity to enable patient to perform ADL's. Speech Zigzag Elastic Attacher Goals Care Home Goals 1. The patient will demonstrate improved cognitive linguistic skills for increased function and safety with ADL's in the least restrictive setting. Time Frame: Two Weeks Comprehension: 5 (NOT MET) Expression: 5 (NOT MET) Social Interaction: 5 (NOT MET) Problem Solvin (NOT MET) Memory: 4 (MET) MIKE ZULUAGA July 03, 2017 10:16
--- NOTE | 2017-07-03 10:36 | Occupational Ther Daily Note ---
OT Current Status-Daily Note Subjective Pt lying in bed sleeping. Pt would open eyes and respond to questions then fall back asleep. Pt did agree to therapy. No c/o pain. Mental Status/Objective Patient Orientation: Person Functional [place] Measure 0=Not Assessed/NA 4=Minimal Assistance 1=Total Assistance 5=Supervision or Setup 2=Maximal Assistance 6=Modified [place] 3=Moderate Assistance 7=Complete [place] ADL-Treatment Pt had difficulty getting started and waking up. Pt is demonstrating increased difficulty with initiating tasks. Pt requiring longer processing times and assist to complete tasks with verbal/physical cues. After therapy, pt sitting in recliner with call light/phone in reach. Safety measures in place. Functional [place] Measure 0=Not Assessed/NA 4=Minimal Assistance 1=Total Assistance 5=Supervision or Setup 2=Maximal Assistance 6=Modified [place] 3=Moderate Assistance 7=Complete IndependenceIRFPAI Quality Coding Scale 6 Independent with activity with or without an assistive device 5 Patient requires set up or clean up by helper. Patient completes activity by themselves 4 Supervision or touching assist (CGA). [place] provide cues , steadying assist 3 The helper provides less than half the effort to complete the activity 2 The helper provides more than half the effort to complete the activity 1 Dependent. The helper does all the effort to complete an activity 7 Patient refused to complete or attempt activity 9 The patient did not perform the activity before the current illness or injury 88 Not attempted due to Medical conditions or safety concerns Eating (FIM): 5 (After set up, pt is able to use utensils to eat. At times cues to continue to eat.) Eating (QC): 4 Grooming (FIM): 5 (Verbal cues to initiate tasks then in able to complete with SBA while standing at sink.) Oral Hygiene (QC): 4 Bathing (FIM): 5 (Set up required and verbal cues to stand and wash frida area and buttocks. SBA in standing while using shower bench, grabbar and hand held shower) Bathing Location: L Arm, R Arm, L Upper Leg, R Upper Leg, L Lower Leg ( including foot), R Lower Leg (including foot), Chest, Abdomen, Buttocks, Perineal Area Shower/Bathe Self (QC): 4 Upper Body (FIM): 5 (After set up, pt able to don/doff clothing.) Upper Body Dressing (QC): 5 Lower Body Dressing (FIM): 3 (Pt required assist to don over feet then verbal cues to stand and assist to hike pants over hips. Difficulty problem solving sequence. Don/doff socks by self after setup.) Lower Body Dressing (QC): 3 On/Off Footwear (QC): 5 Toileting (FIM): 3 (Pt sat down on toilet not noticing/realizing that pants were not pulled down. Multiple cues to stand up and pull pants down were needed prior to voiding/defecating. Pt then was able to wipe self though inefficiently, assist for thoroughly cleaning needed.) Toileting Hygiene (QC): 2 Transfers (B, C, W/C) (FIM): 3 (Verbally counting "1,2,3" to initiate standing needed. Pt has difficulty with placing hands and loses focus during sit to stand and stops transfer.) Toilet/Commode Transfer (FIM): 5 (Using FWW and grabbars with increased time pt is able to complete with SBA.) Toilet Transfer (QC): 4 Shower Transfer(FIM): 3 (Assist to maneuver FWW and hand placement then when to step into shower and how far to step into shower required.) OT Short Term Goals Short Term Goals Time Frame: June 28, 2017 Lower Body Dressing(FIM): 5 Toileting(FIM): 5 Toilet/Commode Transfer(FIM): 5 Additional Short Term Goals: 1-Demonstrate ADL Tasks, 2-Verbalize Understanding , 3-ImproveStrength/Tacho 1=Demonstrate adherence to instructed precautions during ADL tasks. 2=Patient will verbalize/demonstrate understanding of assistive devices/ modifications for ADL. 3=Patient will improve strength/tolerance for activity to enable patient to perform ADL's. OT Slip Sheeter Goals Slip Sheeter Goals Time Frame: Jul 12, 2017 Eating (FIM): 6 (not met) Eating (QC): 6 (not met) Groomin (not met) Oral Hygiene (QC): 6 (not met) Bathing(FIM): 5 (not met) Shower/Bathe Self (QC): 5 (not met) Upper Body Dressing(FIM): 6 (not met) Upper Body Dressing (QC): 6 (not met) Lower Body Dressing(FIM): 6 (not met) Lower Body Dressing (QC): 6 (not met) On/Off Footwear (QC): 6 (not met) Toileting(FIM): 6 (not met) Toileting Hygiene (QC): 6 (not met) Toilet/Commode Transfer(FIM): 6 (not met) Toilet/Commode Transfer (QC): 6 (not met) Shower Transfer(FIM): 5 (not met) Comprehension(FIM): 5 (NOT MET) Expression (FIM): 5 (NOT MET) Social Interaction(FIM): 5 (NOT MET) Problem Solving(FIM): 4 (NOT MET) Memory(FIM): 4 (MET) Additional Goals: 1-Demonstrate ADL Tasks, 2-Verbalize Understanding, 3- ImproveStrength/Tacho 1=Demonstrate adherence to instructed precautions during ADL tasks. 2=Patient will verbalize/demonstrate understanding of assistive devices/ modifications for ADL. 3=Patient will improve strength/tolerance for activity to enable patient to perform ADL's. OT Education/Plan Discharge Recommendations Plan/Recommendations: Continue POC Treatment Plan/Plan of Care Patient would benefit from OT for education, treatment and training to promote independence in ADL's, mobility, safety and/or upper extremity function for ADL' s. Plan of Care: ADL Retraining, Functional Mobility, Group Exercise/Act as Ind, UE Funct Exercise/Act Treatment Duration: Jul 12, 2017 Frequency: At least 5 of 7 days/Wk (IRF) Estimated Hrs Per Day: 1.5 hours per day Agreement: Yes Rehab Potential: Fair Time/GCodes Start Time: 09:00 Stop Time: 10:00 Total Time Billed (hr/min): 60 Billed Treatment Time 1 visit-ADL 4 (60 min) IRMA BLEDSOE July 03, 2017 10:36
--- NOTE | 2017-07-03 10:57 | Progress Note-Hospitalist ---
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 She had presented on 06/07/17 due to refractory nausea and vomiting found to have a brain mass and consistent with lung cancer metastases. She was transferred at the underwent craniotomy with tumor excision and currently is without complaints in the inpatient rehabilitation unit. I review prior records imaging scans and meds and labs. Her family is at the bedside and denies any significant concerns at this current time. Subjective/Events-last exam Patient will go to the [facility] tomorrow since her cancer appears to be very aggressive and the possibility of recovering is highly unlikely Checked meds and labs Bowels are moving Has no pain issues except for her feet Review of Systems General: Fatigue, Malaise Objective Exam Vital Signs Vital Signs Date Time Temp Pulse Resp B/P (MAP) Pulse Ox O2 Delivery O2 Flow Rate FiO2 07/03/17 06:00 96.8 77 18 105/67 (80) 94 Room Air Capillary Refill : General Appearance: No Apparent Distress, WD/WN, Chronically ill Respiratory: Lungs Clear, Normal Breath Sounds Cardiovascular: Regular Rate, Rhythm, No Edema Neurologic/Psychiatric: Alert, Depressed Affect Results/Procedures Lab Patient resulted labs reviewed. Assessment/Plan Assessment and Plan Assess & Plan/Chief Complaint Assessment: Brain tumor due to lung cancer mets s/p excision Debility going to [place] tomorrow Plan: PT/OT Pain control DVT Px Diagnosis/Problems Diagnosis/Problems (1) Brain tumor Status: Chronic (2) History of lung cancer Status: Chronic (3) Essential (primary) hypertension Status: Chronic (4) Altered mental status Status: Chronic Qualifiers: Altered mental status type: disorientation Qualified Codes: R41.0 - Disorientation, unspecified Clinical Quality Measures DVT/VTE Risk/Contraindication: Risk Factor Score Per Nursin RFS Level Per Nursing on Admit: 4+=Very High GERDA ESPINO DO July 03, 2017 10:57
--- NOTE | 2017-07-03 11:09 | Physical Therapy Daily Note ---
PT Daily Note-Current Subjective Pt. states repeatedly she cant do any therapy. C/o she is so dizzy sitting up and even more so standing. Agrees to try walking. Agrees to try to toilet Pain Numeric Pain Scale: 4 Location Body Site: Foot (bilat) Pain Description: Pressure Comment: c/o bilat foot pain with gait Mental Status Patient Orientation: Person, Place, Time, Situation Transfers Functional [place] Measure 0=Not Assessed/NA 4=Minimal Assistance 1=Total Assistance 5=Supervision or Setup 2=Maximal Assistance 6=Modified [place] 3=Moderate Assistance 7=Complete IndependenceIRFPAI Quality Coding Scale 6 Independent with activity with or without an assistive device 5 Patient requires set up or clean up by helper. Patient completes activity by themselves 4 Supervision or touching assist (CGA). [place] provide cues , steadying assist 3 The helper provides less than half the effort to complete the activity 2 The helper provides more than half the effort to complete the activity 1 Dependent. The helper does all the effort to complete an activity 7 Patient refused to complete or attempt activity 9 The patient did not perform the activity before the current illness or injury 88 Not attempted due to Medical conditions or safety concerns Transfers (B, C, W/C) (FIM): 4 Scootin Rollin Roll Left to Right (QC): 5 Supine to/from Sit: 5 Sit to/from Stand: 4 Sit to Lying (QC): 4 Sit to Stand (QC): 4 Chair/Wac-yg-Zqtmq Xfer(QC): 4 Bed to/from Chair: 4 Car Transfer (QC): 4 pt. needs CGA and full expalanation for all tasks and some repeated as pt. stalls and moans and deep sighs then loses track of the task, needs mod assist at times from lower surfaces Weight Bearing Right Lower Extremity: Right Full Weight Bearing Left Lower Extremity: Left Full Weight Bearing Gait Training Does the Patient Walk?: Yes Gait (FIM): 2 Distance (FIM): 6=248-34 ft (50ftx3) Walk 10 feet (QC): 3 Walk 50 ft with 2 Turns(QC): 3 Gait Level of Assist: 4 Gait Persons Needed: 1 Gait Assistive Device: FWW side ALY, waddle type gait, stopping every few feet "whew", fatigues easily and states she is so dizzy, BP WNLs Stair Training Stairs (FIM): 1 pt. declined stairs repeatedly stating she could not think of doing this due to fatigue and dizziness Balance Special Test Comments unsafe to attempt bending over Exercises Supine Ex: Bridging, Rolling, Heel Slides, Hip abd/add Supine Reps: 10 Seated Therapy Exercises: Ankle pumps, Sit to stand, Long arc quads Seated Reps: 8 Treatments toileted with mod to max assist for pants down and up and clean up Assessment Current Status: Regressing declining function , poor appetite, listless PT Short Term Goals Short Term Goals Time Frame: June 28, 2017 Gait (FIM): 5 Gait Distance Comment: 150' Gait Level of Assist: 5 Gait Assistive Device: FWW PT Head Of Art Goals Head Of Art Goals PT Head Of Art Goals Time Frame: Jul 12, 2017 Transfers (B,C,W/C) (FIM): 6 Sit to Lying (QC): 6 Lying-Sitting on Side/Bed(QC): 6 Sit to Stand (QC): 6 Rollin Roll Left to Right (QC): 6 Chair/Jvc-la-Hycol Xfer(QC): 6 Car Transfer (QC): 6 Gait (FIM): 6 Distance: 200' Walk 10 feet (QC): 6 Walk 10ft-Uneven Surface(QC): 6 Walk 50ft with 2 Turns (QC): 6 Walk 150 ft (QC): 6 Gait Assistive Device: FWW Stairs (FIM): 2 # of Steps: 4 1 Step (curb) (QC): 4 4 Steps (QC): 4 Stairs Level Of Assist: 5 Picking up an Object (QC): 5 PT Plan Treatment/Plan Treatment Plan: Continue Plan of Care Treatment Plan: Bed Mobility, Education, Functional Activity Tacho, Functional Strength, Group Therapy, Gait, Safety, Therapeutic Exercise, Transfers Treatment Duration: Jul 12, 2017 Frequency: At least 5 of 7 days/Wk (IRF) Estimated Hrs Per Day: 1.5 hours per day Patient and/or Family Agrees t: Yes Safety Risks/Education Patient Education: Gait Training, Transfer Techniques, Correct Positioning, Safety Issues Teaching Recipient: Patient Teaching Methods: Demonstration, Discussion Response to Teaching: Unable to Return Demonstration, Unable to Comprehend, Reinforcement Needed Time/GCodes Time In: 1000 Time Out: 1100 Total Billed Treatment Time: 60 Total Billed Treatment 1, FA35m,GT10m,EX15m G Codes Necessary: No LUEBBER, AYLA A STEREO COMPILER July 03, 2017 11:09
--- NOTE | 2017-07-03 14:37 | Therapy Group Daily Note ---
Therapy Daily Group Note Patient Education Topic Other List Below (memory loss and management stategies) Exercises LE Seated Exercise, UE Exercise Other/Notes Pt. participated in group PT OT session this date. Pt. required mod assist in out bed and came went via w/c. Pt. needed repeated instruction and cues to join in and participate in exercises etc. Pts. were educated in gait, gait deviations and assistive devices and these were demonstrated as well. Pts. received review of ARU practices and expectations. Pt. needed many cues to participate in seated U&L extremity exercises. Pt. participated in memory game utilizing images to match etc. Pt. was successful at a match. Pts. enjoyed rolling large foam dice on the floor as part of introductions, then answering a fun conversation provoking question. Pt. to room with assist and in bed with call charles at hand. Start Time: 13:00 Stop Time: 14:15 Total Billed Treatment Time: 75 Total Billed Treatment 1,GRP AYLA MENDEZ LOCKSTITCH LINING MAKER July 03, 2017 14:37
[2017-07-03 16:11] VITALS: BP 96/60
[2017-07-03] MEDS ORDERED: DOCU100C37 PO (16:59)
[2017-07-03] MEDS ORDERED: LISI-552 PO (16:59)
[2017-07-03] MEDS ORDERED: ACET325T49 PO (16:59)
[2017-07-03] MEDS ORDERED: SENN-20 PO (16:59)
[2017-07-03] MEDS ORDERED: HEPA500018 SC (16:59)
[2017-07-03] MEDS ORDERED: INSU100V16 SC (16:59)
[2017-07-03] MEDS: DEXAMETHASONE 4 MG TAB (DECADRON) PO SCH (18:21)
[2017-07-04 05:07] VITALS: BP 96/54
[2017-07-04 05:08] VITALS: BP 96/54
--- NOTE | 2017-07-04 12:00 | Therapy Team Discharge Summary ---
Therapy Discharge Summary Discharge Recommendations Date of Discharge July 04, 2017 at 05:40 Therapy D/C Recommendations: Intermediate (TCU/NH) Occupational Therapy Pt was seen for skilled OT to increase her independence in basic self care after surgery for brain tumor. On admission she was able to feed herself with setup; groom, toilet and dress upper body with SBA or supervision; bathe, transfer to toilet and dress lower body with min assist. By discharge she was still able to feed herself but now needed occasional cues. She could groom, bathe, toilet with SBA and cues, dress her upper body with setup; dress lower body, toilet with mod assist; toilet and shower transfer mod assist. She needed cues to initiate and cues to continue ADLs and had difficulty with problem- solving. Equipment used included shower bench, grab bars, FWW, hand held shower , BSC. See tx plan for goals met. Continued OT is recommended on skilled unit. Decreased Activ Tolerance, Decreased UE Strength, Dependent Transfers, Impaired Coordination, Impaired Funct Balance, Impaired I ADL's, Impaired Self-Care Skills PT Film Library Clerk Goals Assisted Goals PT Film Library Clerk Goals Time Frame: Jul 12, 2017 Transfers (B,C,W/C) (FIM): 6 Roll Left to Right (QC): 6 Sit to Lying (QC): 6 Lying-Sitting on Side/Bed(QC): 6 Sit to Stand (QC): 6 Chair/Ius-zm-Axcen Xfer(QC): 6 Car Transfer (QC): 6 Gait (FIM): 6 Distance: 200' Walk 10 feet (QC): 6 Walk 10ft-Uneven Surface(QC): 6 Walk 50ft with 2 Turns (QC): 6 Walk 150 ft (QC): 6 Gait Assistive Device: FWW Stairs (FIM): 2 # of Steps: 4 1 Step (curb) (QC): 4 4 Steps (QC): 4 Stairs Level Of Assist: 5 Picking up an Object (QC): 5 OT Assisted Goals Assisted Goals Time Frame: Jul 12, 2017 Eating (FIM): 6 (not met) Eating (QC): 6 (not met) Oral Hygiene (QC): 6 (not met) Grooming(FIM): 6 (not met) Bathing(FIM): 5 (not met) Shower/Bathe Self (QC): 5 (not met) Upper Body Dressing(FIM): 6 (not met) Upper Body Dressing (QC): 6 (not met) Lower Body Dressing(FIM): 6 (not met) Lower Body Dressing (QC): 6 (not met) On/Off Footwear (QC): 6 (not met) Toileting(FIM): 6 (not met) Toileting Hygiene (QC): 6 (not met) Toilet/Commode Transfer(FIM): 6 (not met) Toilet/Commode Transfer (QC): 6 (not met) Shower Transfer(FIM): 5 (not met) Comprehension(FIM): 5 (NOT MET) Expression (FIM): 5 (NOT MET) Social Interaction(FIM): 5 (NOT MET) Problem Solving(FIM): 4 (NOT MET) Memory(FIM): 4 (MET) Additional Goals: 1-Demonstrate ADL Tasks, 2-Verbalize Understanding, 3- ImproveStrength/Tacho 1=Demonstrate adherence to instructed precautions during ADL tasks. 2=Patient will verbalize/demonstrate understanding of assistive devices/ modifications for ADL. 3=Patient will improve strength/tolerance for activity to enable patient to perform ADL's. Speech Assisted Goals Film Library Clerk Goals 1. The patient will demonstrate improved cognitive linguistic skills for increased function and safety with ADL's in the least restrictive setting. Time Frame: Two Weeks Comprehension: 5 (NOT MET) Expression: 5 (NOT MET) Social Interaction: 5 (NOT MET) Problem Solvin (NOT MET) Memory: 4 (MET) YAMILET JERONIMO OT July 04, 2017 12:00
--- NOTE | 2017-07-04 14:47 | Therapy Team Discharge Summary ---
Therapy Discharge Summary Discharge Recommendations Date of Discharge July 04, 2017 at 05:40 Therapy D/C Recommendations: Half-Way (TCU/NH) (T) Physical Therapy This patient was admitted to ARU from an outside facility with diagnosis of lung CA that had metastisized to her brain and she was post op craniotomy. Prior to her acute hospital stay, she was mod indep with all functional mobility and living alone. Upon admission to our unit, she required min assist with transfers; ambulated 120 ft with FWW with min assist and could go up/down 1 step with min assist. Treatment focused on functional strength and mobility as well as safety and balance. She had limited activity tolerance and often had difficulty participating with therapy due to feeling tired. She was pleasant and cooperated to the best she could. She demonstrates cognitive and mobiltiy decline due to her disease. At discharge, she was still min assist with transfes, scored a 2 on gait (her gait pattern and ability has diminished) and was not able to go up/down a step. She is to discharge to a LTC facility at this time as she is unable to care for herself. Occupational Therapy Decreased Activ Tolerance, Decreased UE Strength, Dependent Transfers, Impaired Coordination, Impaired Funct Balance, Impaired I ADL's, Impaired Self-Care Skills PT Blind Hanger Goals Mcfp Goals PT Blind Hanger Goals Time Frame: Jul 12, 2017 Transfers (B,C,W/C) (FIM): 6 Roll Left to Right (QC): 6 Sit to Lying (QC): 6 Lying-Sitting on Side/Bed(QC): 6 Sit to Stand (QC): 6 Chair/Mnp-te-Xbciv Xfer(QC): 6 Car Transfer (QC): 6 Gait (FIM): 6 Distance: 200' Walk 10 feet (QC): 6 Walk 10ft-Uneven Surface(QC): 6 Walk 50ft with 2 Turns (QC): 6 Walk 150 ft (QC): 6 Gait Assistive Device: FWW Stairs (FIM): 2 # of Steps: 4 1 Step (curb) (QC): 4 4 Steps (QC): 4 Stairs Level Of Assist: 5 Picking up an Object (QC): 5 Goals are unmet at this time; medical status and limited gains due to nature of disease process limited her ability to achieve th goals. OT Blind Hanger Goals Mcfp Goals Time Frame: Jul 12, 2017 Eating (FIM): 6 (not met) Eating (QC): 6 (not met) Oral Hygiene (QC): 6 (not met) Grooming(FIM): 6 (not met) Bathing(FIM): 5 (not met) Shower/Bathe Self (QC): 5 (not met) Upper Body Dressing(FIM): 6 (not met) Upper Body Dressing (QC): 6 (not met) Lower Body Dressing(FIM): 6 (not met) Lower Body Dressing (QC): 6 (not met) On/Off Footwear (QC): 6 (not met) Toileting(FIM): 6 (not met) Toileting Hygiene (QC): 6 (not met) Toilet/Commode Transfer(FIM): 6 (not met) Toilet/Commode Transfer (QC): 6 (not met) Shower Transfer(FIM): 5 (not met) Comprehension(FIM): 5 (NOT MET) Expression (FIM): 5 (NOT MET) Social Interaction(FIM): 5 (NOT MET) Problem Solving(FIM): 4 (NOT MET) Memory(FIM): 4 (MET) Additional Goals: 1-Demonstrate ADL Tasks, 2-Verbalize Understanding, 3- ImproveStrength/Tacho 1=Demonstrate adherence to instructed precautions during ADL tasks. 2=Patient will verbalize/demonstrate understanding of assistive devices/ modifications for ADL. 3=Patient will improve strength/tolerance for activity to enable patient to perform ADL's. Speech Blind Hanger Goals Blind Hanger Goals 1. The patient will demonstrate improved cognitive linguistic skills for increased function and safety with ADL's in the least restrictive setting. Time Frame: Two Weeks Comprehension: 5 (NOT MET) Expression: 5 (NOT MET) Social Interaction: 5 (NOT MET) Problem Solvin (NOT MET) Memory: 4 (MET) IRMA SAM PT July 04, 2017 14:47
--- NOTE | 2017-07-24 05:20 | DISCHARGE SUMMARY ---
DATE OF SERVICE: HISTORY OF PRESENT ILLNESS: The patient is a 77-year-old female who has been living alone at home in [place], [place] with a history of prior stroke, falls as well as a hip fracture with repair at this rehab unit last year who is modified independent with a cane. She developed problems with communication, speech and right-sided weakness. She was assessed in the ED at [facility]. Imaging studies revealed a left frontal tumor. She was transferred to [facility] on 06/13/2017 and underwent craniotomy for left frontal tumor resection with navigation left on 06/17/2017. She was left with deficits in ADLs and mobility skills and was referred to inpatient rehabilitation unit at [facility] so as to be closer to the home. She is on Keppra for seizure prophylaxis and Decadron taper as cerebral edema decreases. PAST MEDICAL HISTORY: Falls, tobaccoism, lung cancer, stroke, malnutrition, hypertension, GERD, hypothyroidism, repair of a periprosthetic hip fracture. She has a supportive daughter that lives nearby who presented to unit with her. She is a and retired. Her brain mets are secondary to primary lung cancer. MEDICAL COURSE: The patient was followed by Dr. Meier, Dr. Bone and Dr. Leonardo while on rehab unit. She was afebrile during her stay. Pulse was 84 on 07/04/2017, respirations 18, blood pressure is on a downward trend at 96/54 on 07/04/2017, O2 sat 96% on room air. She had difficulty participating in full rehabilitation process and public health social worker assisted the patient and family with placement at a local senior care facility for ongoing care and treatment. Glucometer readings from 07/03/2017 to 07/04/2017 varied between 112 and 150, down from 274 on 06/26/2017. She continued on her Decadron taper. REHABILITATION COURSE: She had difficulty participating in full program. Speech therapy notes upon admission, the patient displayed a moderate cognitive impairment, most notably in the areas of attention and problem solving. The patient displayed extremely poor progress with regression in expressive ability. This may have been due to motivational or reactive depression and she has some increased lethargy and fatigue. PT notes upon admission, she was able to feed herself with set up; groom, toilet and dress upper body with standby assist or supervision, basic transfer to toilet and dress lower body with min assist. By discharge, she was still able to feed herself, but now needed occasional cues. She could groom, bathe, toilet with standby assist and cues, dress her upper body with setup, dress lower body and toileting mod assist, toilet and shower transfers with mod assist. She needed cues to initiate and cues to continue with her ADLs and had difficulty with problem solving. PT notes upon admission, she required min assist for transfers, could ambulate 120 feet with front wheel walker with min assist and can go up and down one step with min assist. She had limited activity tolerance and often had difficulty participating with therapy due to feeling tired. She was pleasant and cooperative to the best she could. She demonstrated cognitive mobility decline due to her disease. At discharge, she was min assist with transfer and max assist for gait and was not able to go up and down one step. She will have ongoing care at a local senior care unit. DISCHARGE INSTRUCTIONS: She is discharged to a local senior care facility for ongoing care and treatment. She will have a followup with her PCP or senior living physician. Continue current diet. Clarify code status. Consider hospice care. DISCHARGE MEDICATIONS: Tylenol 650 mg p.o. q.4 hours p.r.n. mild pain, Colace 100 mg p.o. b.i.d., heparin 5000 units subQ q.8h. for DVT prophylaxis. NovoLog insulin subQ a.c and at bedtime, lisinopril 20 mg p.o. daily, Senokot-S one tablet p.o. b.i.d., hydrochlorothiazide 25 mg p.o. daily, levothyroxine 25 mcg p.o. daily, lisinopril 40 mg p.o. daily, fish oil 2000 mg p.o. b.i.d., temazepam 50 mg p.o. each day at bedtime. PreserVision one capsule p.o. b.i.d., vitamin B complex one capsule p.o. daily. The patient's Decadron was discontinued as well as her hydrocodone. DISCHARGE DIAGNOSES: 1. Rehabilitation ambulatory dysfunction secondary to metastatic brain mets with primary being lung cancer status post craniotomy and resection. 2. Right hemiplegia. 3. Hypertension. 4. Gastroesophageal reflux disease. 5. Hypothyroidism, on replacement. 6. History of lung cancer. 7. History of tobaccoism. 8. History of falling. 9. Hyperglycemia due to steroids, improving. 10. Altered mental status. 11. Borderline hypotension, medications may need to be adjusted. CONDITION AT DISCHARGE: Unimproved, but stable. PROGNOSIS: Rehab prognosis appears somewhat guarded. Consider DNR status, hospice care. Job ID: [id number] DocumentID: [id number] Dictated Date: 07/23/2017 15:44:23 Pegger Date: 07/24/2017 05:19:59 Dictated By: REBEKAH MEIER MD MTDD
== END 2017-07-04 05:40 | DRG 949 ==
PROVIDERS: ADMIT Physical Medicine & Rehabilitation; ATTEND Physical Medicine & Rehabilitation
DX: Z48.3 Aftercare following surgery for neoplasm (principal); C79.31 Secondary malignant neoplasm of brain; G81.91 Hemiplegia, unspecified affecting right dominant side; R41.82 Altered mental status, unspecified; I10 Essential (primary) hypertension; K21.9 Gastro-esophageal reflux disease without esophagitis; E03.9 Hypothyroidism, unspecified; R73.9 Hyperglycemia, unspecified; Z85.118 Personal history of other malignant neoplasm of bronchus and lung; Z87.891 Personal history of nicotine dependence; Z91.81 History of falling; T38.0X5A Adverse effect of glucocorticoids and synthetic analogues, initial encounter
CPT/HCPCS: 82962

== ENCOUNTER → 2017-08-30 | Outpatient (CLI) | payer MEDICARE, OTHER ==
[~2017-08-30] MED LIST changes: +ACET325T49 PO; +GADOBUTROL 7.5 MMOL/7.5 ML (GADAVIST) VIAL IV ONE; +HEPA500018 SC; +INSU100V16 SC; +LISI-552 PO; +SENN-20 PO
--- NOTE | 2017-08-30 13:07 | Diagnostic Imaging Report ---
INDICATION: Pre-MRI screening. TIME OF EXAMINATION: 01:05 p.m. FINDINGS: Postop changes of left frontal craniectomy are noted. Orbits are unremarkable. No radiopaque orbital foreign body is identified. IMPRESSION: Postop changes of left frontal craniotomy. No radiopaque orbital foreign bodies are detected. Dictated by: Dictated on workstation # [id number]
--- NOTE | 2017-08-30 15:01 | Diagnostic Imaging Report ---
PROCEDURE: MR imaging of the brain with and without contrast. TECHNIQUE: Multiplanar, multisequence MR imaging of the brain was performed with and without contrast. INDICATION: Brain mass, status post resection. Patient has known metastatic lung carcinoma. COMPARISON: Correlation is made with a prior MRI of the brain from 06/07/2017. FINDINGS: Postsurgical changes of left frontal craniectomy are noted. There has been resection of the large mass involving the left frontal lobe seen on prior MRI. A large CSF cavity in the left frontal lobe is seen which measures 6.7 x 4.1 cm. There are nodular regions of enhancement noted along the margin of the cavity consistent with residual or recurrent tumor. Irregular enhancement posteriorly and superiorly measures 2.5 x 2.0 cm. There is some nodular enhancement along the medial margin of the cavity. Irregular enhancement more inferiorly and posteriorly along the margin of the cavity is seen as well, largest component is medial measuring 2.2 x 2.0 cm. Significant periventricular T2 and FLAIR signal is again noted consistent with chronic microvascular ischemia. The degree of mass effect and midline shift has improved since the preoperative MRI. No definite acute intra-axial or extra-axial hemorrhage is seen. There is CSF signal intensity along the left posterior parietal-occipital convexity consistent with chronic subdural hematoma/subdural effusion. No diffusion restriction is seen to suggest acute ischemia. Corpus callosum is unremarkable. Sella and parasellar structures are unremarkable. IMPRESSION: Postsurgical changes of left frontal craniectomy and frontal lobe tumor resection. There is a large cystic cavity at the surgical site. There are numerous nodular enhancing masses along the medial and posterior margin of the cavity consistent with residual or recurrent neoplasm. Overall mass effect has improved. No acute hemorrhage or evidence of acute infarct is identified. Dictated by: Dictated on workstation # [id number]
== END ==
LOC: RAD 11:43
PROVIDERS: ATTEND Internal Medicine Hematology & Oncology
DX: C34.2 Malignant neoplasm of middle lobe, bronchus or lung (principal); C79.31 Secondary malignant neoplasm of brain; Z98.890 Other specified postprocedural states
CPT/HCPCS: 70250; 70553

== ENCOUNTER 2017-09-03 09:26 | Outpatient (RCR) | payer MEDICARE, OTHER ==
[2017-08-12 14:00] LABS: BASOPHILS % (AUTO) 0 % (0-10); EOSINOPHILS # (AUTO) 0.1 10^3/uL (0.0-0.3); EOSINOPHILS % (AUTO) 1 % (0-10); HEMATOCRIT 36 % (35-52); HEMOGLOBIN 11.9 G/DL (11.5-16.0); LYMPHOCYTES # (AUTO) 2.2 X 10^3 (1.0-4.0); LYMPHOCYTES % (AUTO) 24 % (12-44); MEAN CORPUSCULAR HEMOGLOBIN 25 PG (25-34); MEAN CORPUSCULAR HGB CONC 33 G/DL (32-36); MEAN CORPUSCULAR VOLUME 74 FL (80-99); MEAN PLATELET VOLUME 10.2 FL (7.4-10.4); MONOCYTES % (AUTO) 11 % (0-12); NEUTROPHILS % (AUTO) 64 % (42-75); PLATELET COUNT 336 10^3/uL (130-400); RED BLOOD COUNT 4.86 10^6/uL (4.35-5.85); RED CELL DISTRIBUTION WIDTH 16.5 % (10.0-14.5); WHITE BLOOD COUNT 9.3 10^3/uL (4.3-11.0)
[2017-08-12 14:16] LABS: ALANINE AMINOTRANSFERASE 10 U/L (0-55); ALBUMIN 3.8 GM/DL (3.2-4.5); ALKALINE PHOSPHATASE 80 U/L (40-136); BILIRUBIN,TOTAL 0.3 MG/DL (0.1-1.0); BUN/CREATININE RATIO 21; CARBON DIOXIDE 25 MMOL/L (21-32); CHLORIDE 102 MMOL/L (98-107); CREATININE SERUM 0.71 MG/DL (0.60-1.30); GFR ESTIMATED > 60; GLUCOSE 188 MG/DL (70-105); POTASSIUM 3.7 MMOL/L (3.6-5.0); SODIUM 139 MMOL/L (135-145); TOTAL PROTEIN 7.2 GM/DL (6.4-8.2)
[~2017-09-03 09:26] MED LIST changes: -AMLO10TA2 PO; +AMLO10TA6 PO; -GADOBUTROL 7.5 MMOL/7.5 ML (GADAVIST) VIAL IV ONE
== END 2017-09-10 | disposition home or self-care (01) ==
LOC: ONC 09:26
PROVIDERS: ATTEND Internal Medicine Hematology & Oncology
DX: C79.31 Secondary malignant neoplasm of brain (principal)
CPT/HCPCS: 36415; 80053; 85025; 99213